=== PATIENT | male | born 1935 | race Caucasian/White ===

== ENCOUNTER 2018-11-22 12:09 | Inpatient (IN) | payer MEDICARE, OTHER ==
[~2018-11-22] VITALS: Ht 167.6 cm; Wt 78.7 kg
[2018-11-22] MEDS: SENNA W/DOCUSATE (SENOKOT S) TABLET PO SCH ×3 (09:00→21:11)
[2018-11-22 11:45] VITALS: BP 129/64
--- NOTE | 2018-11-22 11:45 | NUR ---
VICENTA LOCO admitted to room 225-1, with an admitting diagnosis of RIGHT TOTAL HIP , on 11/22/18 from [facility] via , accompanied by STAFF.VICENTA LOCO introduced to surroundings, call light, bed controls, phone, TV, temperature control, lights, meal times, smoking policy, visitor policy, side rail policy, bathrooms and showers. Patient Rights given to patient in the handbook.VICENTA LOCO verbalizes understanding that [facility] is not responsible for the loss or damage to any personal effects or valuables that are kept in the patients posession during their hospitalization. The following Patient Care Plans were discussed with the PT: Discharge Planning AND IMMOBILITY. VICENTA LOCO verbalizes understanding of Interdisciplinary Patient CARE. Patient received Patient Rights Booklet, which includes Privacy Act Statement and Data Collection Information Summary. PLEASANT AND COOPERATIVE. PERALES CATHETER IN PLACE.
[~2018-11-22 12:09] MED LIST: ACETAMINOPHEN 500 MG TAB (TYLENOL) PO PRN; CALCIUM CARBONATE 500 MG (TUMS) TAB.CHEW PO PRN; DOCUSATE SODIUM 100 MG (COLACE) CAP PO PRN; HYDR-707 PO; LACTULOSE SYRUP 10GM/15ML (ENULOSE) 30ML UDC PO PRN; LOPERAMIDE 2 MG (IMODIUM) TABLET PO PRN; MELATONIN 3 MG TABLET PO PRN; ONDANSETRON 4 MG (ZOFRAN) ORAL DISSOLVE TAB PO PRN; ONDANSETRON 4 MG/2 ML (SDV) Z0FRAN IVP PRN; diphenhydrAMINE 25 MG TAB (BENADRYL) PO PRN
--- NOTE | 2018-11-22 12:51 | Physical Therapy Evaluation ---
PT Evaluation-General Medical Diagnosis Admission Date Nov 22, 2018 at 12:09 Medical Diagnosis: OA right hip Onset Date: Nov 22, 2018 Therapy Diagnosis Therapy Diagnosis: abn gait Precautions Precautions/Isolations: Standard Precautions Weight Bear Status Right Lower Extremity: Right Weight Bearing/Tolerated Left Lower Extremity: Left Full Weight Bearing Referral Physician: Murphy Reason for Referral: Evaluation/Treatment Medical History Pertinent Medical History: Atrial Fib, Arthritis, COPD, GERD, HTN Additional Medical History Stage III renal failure Current History Elective right THR on 11/21/2018 post failed conservative treatment. Longstanding right hip pain. Reviewed History: Yes Social History Home: Single Level Current Living Status: Spouse Entry Into Home: Stairs With Railing PT Steps Into Home: 2 PT Steps Inside Home: 0 Prior/Core FIM Prior Level of Function Therapy Code Descriptions/Definitions Functional [place] Measure: 0=Not Assessed/NA 4=Minimal Assistance 1=Total Assistance 5=Supervision or Setup 2=Maximal Assistance 6=Modified [place] 3=Moderate Assistance 7=Complete [place] Therapy Quality Codes: 6 Independent with activity with or without an assistive device 5 Patient requires set up or clean up by helper. Patient completes activity by themselves 4 Supervision or touching assist (CGA). [place] provide cues , steadying assist 3 The helper provides less than half the effort to complete the activity 2 The helper provides more than half the effort to complete the activity 1 Dependent. The helper does all the effort to complete an activity 7 Patient refused to complete or attempt activity 9 The patient did not perform the activity before the current illness or injury 88 Not attempted due to Medical conditions or safety concerns Functional Abilities and Goals: Independent: Patient completed the activities by him/herself, with or without an assistive device, with no assistance from a helper. Needed Some Help: Patient needed partial assistance from another person to complete activities. Dependent: A helper completed the activities for the patient. Unknown: Not Applicable: Bed Mobility: 7 Transfers (B,C,W/C) (FIM): 7 Gait: 6 (intermittent use of a cane due to right hip pain) Stairs: 6 Indoor Mobility (Ambulation): Independent Stairs: Independent Pt active, gardens, still drives; indep with self care and all mobility. PT Evaluation-Current Subjective Pt agreeable to PT. No complaints at this time. Pain Numeric Pain Scale: 3 Location: Right Location Body Site: Hip Pain Description: Ache (sore) Pt/Family Goals His goals is to return home with spouse when able. Objective Patient Orientation: Person, Place, Time, Situation Problem Solving: Good Attachments: Marley Catheter ROM/Strength ROM Lower Extremities WFL Strenght Lower Extremities Left LE strength is grossly 4/5; right LE strength is grossly 3/5 Integumentary/Posture Integumentary intact Bowel Incontinence: No Bladder Incontinence: Marley Cath Posture Normal and symmetrical Neuromuscular (Tone, Coordination, Reflexes) intact and functional Sensory Vision: Functional Hearing: Hearing Aid/Aides Hand Dominance: Right Sensation Right Lower Extremit: Intact Sensation Left Lower Extremity: Intact Transfers Therapy Code Descriptions/Definitions Functional [place] Measure: 0=Not Assessed/NA 4=Minimal Assistance 1=Total Assistance 5=Supervision or Setup 2=Maximal Assistance 6=Modified [place] 3=Moderate Assistance 7=Complete [place] Therapy Quality Codes: 6 Independent with activity with or without an assistive device 5 Patient requires set up or clean up by helper. Patient completes activity by themselves 4 Supervision or touching assist (CGA). [place] provide cues , steadying assist 3 The helper provides less than half the effort to complete the activity 2 The helper provides more than half the effort to complete the activity 1 Dependent. The helper does all the effort to complete an activity 7 Patient refused to complete or attempt activity 9 The patient did not perform the activity before the current illness or injury 88 Not attempted due to Medical conditions or safety concerns Transfers (B, C, W/C) (FIM): 3 Roll Left to Right (QC): 3 Supine to/from Sit: 3 (assist to get both legs into bed. ) Sit to/from Stand: 4 (CGA) Sit to Lying (QC): 3 Lying to Sitting/Side of Bed(Q: 3 Sit to Stand (QC): 4 Chair/Ovk-sx-Muuor Xfer(QC): 4 Car Transfer (QC): 4 Gait Does the Patient Walk?: Yes Mode of Locomotion: Walk Anticipated Mode of Locomotion: Walk Gait (FIM): 2 Distance (FIM): 2=674-66 ft Walk 10 feet (QC): 4 Walk 50 ft with 2 Turns(QC): 4 Walk 150 ft (QC): 88 Walking 10ft/uneven surface-QC: 4 Gait Assistive Device: FWW Comments/Gait Description slightly antalgic gait but with step through pattern. Wheelchair Training Does the Pt Use a Wheelchair?: No Stairs Stairs (FIM): 1 #of Steps: 1 Level of Assist: 4 1 Step (curb) (QC): 3 4 Steps (QC): 88 Assistive Device: Walker 12 Steps (QC): 88 Min assist to step up on the step Balance Sitting Static: Good Sitting Dynamic: Good Standing Static: Fair Standing Dynamic: Fair Picking up an Object (QC): 88 (contraindicated) Treatment Treatment consisted of functional transfer training and gait training with use of FWW; focused on sit to stand transfers with safety and correct sequencing. Pt in room in recliner post treatment with needs met. Assessment/Needs Post elective right THR with a decline in functional strength and balance that impairs his abiltity to perform bed mobility, transfers and gait. He will benefit from skilled PT services to address functional tasks to allow him to return home as before. Rehab Potential: Good PT Short Term Goals Short Term Goals Time Frame: Nov 29, 2018 Transfers (B,C,W/C) (FIM): 5 Gait (FIM): 4 Distance (FIM): 3=150 ft Gait Assistive Device: FWW PT Usp Goals Usp Goals PT Usp Goals Time Frame: Dec 06, 2018 Transfers (B,C,W/C) (FIM): 7 Sit to Lying (QC): 6 Lying-Sitting on Side/Bed(QC): 6 Sit to Stand (QC): 6 Roll Left to Right (QC): 6 Chair/Jpw-oe-Asrwr Xfer(QC): 6 Car Transfer (QC): 6 Does the Patient Walk: Yes Gait (FIM): 6 Gait distance (FIM): 3=150 ft Walk 10 feet (QC): 6 Walk 10ft-Uneven Surface(QC): 6 Walk 50ft with 2 Turns (QC): 6 Walk 150 ft (QC): 6 Gait Assistive Device: FWW Does the Pt use WC or Scooter?: No Stairs (FIM): 5 # of Steps: 4 1 Step (curb) (QC): 6 4 Steps (QC): 6 12 Steps (QC): 9 Picking up an Object (QC): 88 PT Plan Problem List Problem List: Activity Tolerance, Functional Strength, Safety, Balance, Gait, Transfer, Bed Mobility Treatment/Plan Treatment Plan: Continue Plan of Care Treatment Plan: Bed Mobility, Education, Functional Activity Lizet, Functional Strength, Group Therapy, Gait, Safety, Therapeutic Exercise, Transfers Treatment Duration: Dec 06, 2018 Frequency: At least 5 of 7 days/Wk (IRF) Estimated Hrs Per Day: 1.5 hours per day Patient and/or Family Agrees t: Yes Safety Risks/Education Patient Education: Transfer Techniques, Safety Issues Teaching Recipient: Patient Teaching Methods: Demonstration, Discussion Response to Teaching: Reinforcement Needed Discharge Recommendations Therapy Discharge Recommendati: Post Acute PT Equpiment Recommendations-D/C: Front Wheeled Walker Time/GCodes Time In: 1145 Time Out: 1230 Total Billed Treatment Time: 45 Total Billed Treatment visit EVM 15 GT 15 FA 15 ROSANNE HOPKINS PT Nov 22, 2018 12:51
[2018-11-22 12:52] VITALS: BP 129/64
[2018-11-22] MEDS ORDERED: HYLAND'S LEG CRAMPS SL (13:21)
[2018-11-22] MEDS ORDERED: VIT1CAPS44 PO (13:21)
[2018-11-22] MEDS ORDERED: FURO20TA4 PO (13:21)
[2018-11-22] MEDS ORDERED: TAMS0.4C98 PO (13:21)
[2018-11-22] MEDS ORDERED: DIPH-581 PO (13:21)
[2018-11-22] MEDS ORDERED: CHOL10007 PO (13:21)
[2018-11-22] MEDS ORDERED: PRED5TAB PO (13:21)
[2018-11-22] MEDS ORDERED: CARB15DR OU (13:21)
[2018-11-22] MEDS ORDERED: OXYC-529 PO (13:21)
[2018-11-22] MEDS ORDERED: PEDI18TA2 PO (13:21)
[2018-11-22] MEDS ORDERED: TRAM50TA2 PO (13:21)
[2018-11-22] MEDS ORDERED: CARV6.252 PO (13:21)
[2018-11-22] MEDS ORDERED: VITA1CAP PO (13:21)
[2018-11-22] MEDS ORDERED: ALLO300T2 PO (13:21)
[2018-11-22] MEDS ORDERED: ZINC50TA51 PO (13:21)
[2018-11-22] MEDS ORDERED: FLUT9.9S NS (13:21)
[2018-11-22] MEDS ORDERED: FISH12002 PO (13:21)
[2018-11-22] MEDS ORDERED: OMEP40CA36 PO (13:21)
[2018-11-22] MEDS ORDERED: PANT40TA2 PO (13:21)
[2018-11-22] MEDS ORDERED: ATOR40TA70 PO (13:21)
[2018-11-22] MEDS ORDERED: FLUT1DIS28 IH (13:21)
[2018-11-22] MEDS ORDERED: IRON150C3 PO (13:21)
[2018-11-22] MEDS ORDERED: APIX2.5T PO (13:21)
[2018-11-22] MEDS ORDERED: ACET-2267 PO (13:21)
[2018-11-22] MEDS ORDERED: OXYC-471 PO (13:21)
--- NOTE | 2018-11-22 13:26 | Occupational Therapy Eval ---
OT Evaluation-General/PLF Medical Diagnosis Admission Date Nov 22, 2018 at 12:09 Medical Diagnosis: OA right hip Onset Date: Nov 22, 2018 Therapy Diagnosis Therapy Diagnosis: impaired ADLs and functional mobility Height/Weight Height (Feet): 5 Height (Inches): 6.00 Weight (Pounds): 172 Weight (Ounces): 0.2 Precautions Precautions/Isolations: Standard Precautions Weight Bear Status Weight Bearing Restriction: Weight Bearing/Tolerated Location Restriction: R LE Referral Physician: Murphy Referral Reason: Activity Tolerance, Self Care, Evaluation/Treatment, Strengthening/ROM Medical History Pertinent Medical History: Atrial Fib, Arthritis, COPD, GERD, HTN Current History Pt elected to have R ANNIKA surgery on right hip after trying other txs without success. Reviewed History: Yes Social History Home: Single Level Current Living Status: Spouse Entry Into Home: Stairs With Railing Steps Into Home: 2 Steps Inside Home: 0 ADL-Prior Level of Function Therapy Code Descriptions/Definitions Functional [place] Measure: 0=Not Assessed/NA 4=Minimal Assistance 1=Total Assistance 5=Supervision or Setup 2=Maximal Assistance 6=Modified [place] 3=Moderate Assistance 7=Complete [place] Therapy Quality Codes: 6 Independent with activity with or without an assistive device 5 Patient requires set up or clean up by helper. Patient completes activity by themselves 4 Supervision or touching assist (CGA). [place] provide cues , steadying assist 3 The helper provides less than half the effort to complete the activity 2 The helper provides more than half the effort to complete the activity 1 Dependent. The helper does all the effort to complete an activity 7 Patient refused to complete or attempt activity 9 The patient did not perform the activity before the current illness or injury 88 Not attempted due to Medical conditions or safety concerns Functional Abilities and Goals: Independent: Patient completed the activities by him/herself, with or without an assistive device, with no assistance from a helper. Needed Some Help: Patient needed partial assistance from another person to complete activities. Dependent: A helper completed the activities for the patient. Unknown: Not Applicable: ADL PLOF Comments Pt reported he was independent with bathing/dressing/grooming and ADLs prior to surgery & hospitalization. Pt stated he uses a walker or a cane at home and in the community depending on how he is feeling. Self Care: Independent Functional Cognition: Independent DME/Equipment: Bath Chair, Grab Bars, Shower DME/Equipment Comments walker and cane Drive Self: Yes OT Current Status Subjective Pt upright in recliner at start of session, agreed to OT evaluation. Pt did not report any pain during evaluation. Mental Status/Objective Patient Orientation: Person, Place, Time, Situation Attachments: Marley Catheter Current Glasses/Contacts: Yes Hearing Aids: Yes Dentures/Partials: No Hand Dominance: Right Upper Extremity ROM WFL, pt able to reach bilateral hands behind head. Upper Extremity Coordination WFL finger to nose test and thumb opposition to each finger. Pt's right thumb able to oppose to 4th digit but unable to oppose to 5th digit. Upper Extremity Sensation WNL light touch, pt denied any tingling/numbness BUE Upper Extremity Strength 4+/5 MMT ADL-Treatment Grooming (FIM): 4 (CGA. pt able to brush teeth and hair standing at sink with FWW, OT set up bathroom for grooming) Oral Hygiene (QC): 4 Transfers (B, C, W/C) (FIM): 4 (CGA sit to/from stand from chair) Other Treatments Pt provided information on PLOF and home set up. OT evaluation complete this date. Pt performed functional mobility with FWW to bathroom with CGA to complete grooming standing at sink. Pt performed functional mobility with CGA into rehab common area prior to group therapy tx. Post OT session, pt seated upright in chair, all needs met. Education OT Patient Education: Correct positioning, Energy conservation, Progress toward Goal/Update tx plan, Purpose of tx/functional activities, Transfer techniques Teaching Recipient: Patient Teaching Methods: Demonstration, Discussion Response to Teaching: Verbalize Understanding OT Short Term Goals Short Term Goals Time Frame: Dec 04, 2018 Grooming(FIM): 5 Bathing(FIM): 4 Bathing Location: L Arm, R Arm, L Upper Leg, R Upper Leg, Chest, Abdomen, Buttocks, Perineal Area Upper Body Dressing(FIM): 5 Lower Body Dressing(FIM): 5 Toileting(FIM): 5 Transfers (B,C,W/C) (FIM): 5 Toilet/Commode Transfer(FIM): 5 Shower Transfer(FIM): 4 1=Demonstrate adherence to instructed precautions during ADL tasks. 2=Patient will verbalize/demonstrate understanding of assistive devices/modifications for ADL. 3=Patient will improve strength/tolerance for activity to enable patient to perform ADL's. OT Half-Way Goals Sample Maker Original Goals Time Frame: Dec 13, 2018 Eating (FIM): 7 Eating (QC): 6 Groomin Oral Hygiene (QC): 6 Bathing(FIM): 5 Bathing Location: L Arm, R Arm, L Upper Leg, R Upper Leg, L Lower Leg (including foot), R Lower Leg (including foot), Chest, Abdomen, Buttocks, Perineal Area Shower/Bathe Self (QC): 5 Upper Body Dressing(FIM): 6 Upper Body Dressing (QC): 6 Lower Body Dressing(FIM): 6 Lower Body Dressing (QC): 6 On/Off Footwear (QC): 6 Toileting(FIM): 6 Toileting Hygiene (QC): 6 Transfers (B,C,W/C) (FIM): 6 Toilet/Commode Transfer(FIM): 6 Toilet/Commode Transfer (QC): 6 Shower Transfer(FIM): 5 Additional Goals: 1-Demonstrate ADL Tasks, 2-Verbalize Understanding, 3- ImproveStrength/[place] 1=Demonstrate adherence to instructed precautions during ADL tasks. 2=Patient will verbalize/demonstrate understanding of assistive de vices/modifications for ADL. 3=Patient will improve strength/tolerance for activity to enable patient to perform ADL's. OT Education/Plan Problem List/Assessment Assessment: Decreased Activ Tolerance, Decreased UE Strength, Impaired Funct Balance, Impaired I ADL's, Impaired Self-Care Skills Pt would benefit from skilled OT services in order to increase independence in ADLs and functional mobility in order for pt to safely return home. Discharge Recommendations Plan/Recommendations: Continue POC Treatment Plan/Plan of Care Treatment,Training & Education: Yes Patient would benefit from OT for education, treatment and training to promote independence in ADL's, mobility, safety and/or upper extremity function for ADL's. Plan of Care: ADL Retraining, Caregiver Training, Functional Mobility, Group Exercise/Act as Ind, UE Funct Exercise/Act Treatment Duration: Dec 13, 2018 Frequency: At least 5 of 7 days/Wk (IRF) Estimated Hrs Per Day: 1.5 hours per day Agreement: Yes Rehab Potential: Good Time/GCodes Start Time: 12:45 Stop Time: 13:00 Total Time Billed (hr/min): 15 Billed Treatment Time 1, CHRISTINA [id number] JERMAN MTZ OT Nov 22, 2018 13:25
--- NOTE | 2018-11-22 13:29 | NUR ---
UPDATED MED REC TO THE LIST OF MEDICATIONS ORDERED AT DISCHARGE FROM [facility]. NOTE THE FOLLOWING CHANGES WERE MADE AT THAT DISCHARGE: START TAKING: PROTONIX 40MG DAILY TRAMADOL 50MG 1-2 Q6H PRN OXYCODONE 5-325MG 1-2 TAB Q4H PRN FERREX 150MG BID Addendum: 11/25/18 at 0832 by LISA GEE drying can worker REMOVED THE 4 NEW MEDICATIONS ORDERED AT DISCHARGE FROM [facility]. I COMPARED THE ORDERS THAT WERE CONTINUED WITH THE EXT MED HX. IN ADDITION TO WHAT IS ADDRESSED ON DISCHARGE FROM [facility] THE PATIENT FILLED VOLTAREN GEL 11-12-18 AND METHOTREXATE 2.5MG #39 FOR 90 DAYS 09-16-18. I ADDED THESE TO THE MED REC TO BE ADDRESSED AT DISCHARGE FROM REHAB. OTC MEDS WERE REPORTED FOLLOWS: FLONASE HS PRN FISH OIL DAILY BENADRYL 25MG HS PRN VITAMIN D 1000 UNITS DAILY REFRESH TEARS BID TYLENOL 2 HS HYLANDS LEG CRAMPS HS PRN ZINC 50MG DAILY B COMPLEX DAILY PRESERVISION DAILY FLINTSTONES WITH IRON DAILY
[2018-11-22] MEDS ORDERED: [UNRECOGNIZED DRUG - REMARK] PO PRN (14:30)
[2018-11-22] MEDS ORDERED: NON-FORMULARY MEDICATION 1 EA EA (Fluticasone Propionate (Flonase Allergy Relief) 1 SPRAY) NS PRN (14:30)
[2018-11-22] MEDS ORDERED: [UNRECOGNIZED DRUG - OTHER] SL PRN (14:30)
--- NOTE | 2018-11-22 14:47 | Therapy Group Daily Note ---
Therapy Daily Group Note Patient Education Topic Exercises, Other List Below (benefits of exercise and ARU practices and protocols) Exercises LE Seated Exercise, Sit to/from Stand, UE Exercise Session Ratio (pt:therapist): 4:1 Goal of Session: Education on ARU Expectations, UE/LE Strengthing, Other (list) ("exercise anytime") Goal Met for this Session: Yes Pt Benefit of Group: Increased Functional Strength, Socialization, Other (sit to stand safety and technique) Other/Notes Pt. participated in group PT session. Pt. was active participant, walked to and from with SBA. Pt. shared name, hometown and some of his favorite activities. Pts. were educated in ARU practices, requirements, scheduling etc. Education regarding benefits of exercise and activity as well as exercise they can do any time, ie in bed or seated etc. Pts read and demonstrated exercises from illustrations and instructions on cards and lead others in group exercise for U&L extremities. Scooting forward and sit to stand TRFs were focus of TRF education with each participant progressing through to stance with good techni que. Pt. to room after with gabino GUTIÉRREZ at hand all needs met Start Time: 13:00 Stop Time: 14:15 Total Billed Treatment Time: 75 Total Billed Treatment 1,GRP MISSY GREGORY DIRECTOR OF HEALTH EDUCATION Nov 22, 2018 14:47
--- NOTE | 2018-11-22 15:15 | Occupational Ther Daily Note ---
OT Current Status-Daily Note Subjective Pt in room following group session. Pt agreed to OT session focusing on ADLs. Pain Numeric Pain Scale: 8 Mental Status/Objective Patient Orientation: Person, Place, Time, Situation Therapy Code Descriptions/Definitions Functional [place] Measure: 0=Not Assessed/NA 4=Minimal Assistance 1=Total Assistance 5=Supervision or Setup 2=Maximal Assistance 6=Modified [place] 3=Moderate Assistance 7=Complete [place] Attachments: Marley Catheter ADL-Treatment Therapy Code Descriptions/Definitions Functional [place] Measure: 0=Not Assessed/NA 4=Minimal Assistance 1=Total Assistance 5=Supervision or Setup 2=Maximal Assistance 6=Modified [place] 3=Moderate Assistance 7=Complete [place] Therapy Quality Codes: 6 Independent with activity with or without an assistive device 5 Patient requires set up or clean up by helper. Patient completes activity by themselves 4 Supervision or touching assist (CGA). [place] provide cues , steadying assist 3 The helper provides less than half the effort to complete the activity 2 The helper provides more than half the effort to complete the activity 1 Dependent. The helper does all the effort to complete an activity 7 Patient refused to complete or attempt activity 9 The patient did not perform the activity before the current illness or injury 88 Not attempted due to Medical conditions or safety concerns Eating (FIM): 7 (Pt able to open all containers and bring food to mouth.) Eating (QC): 6 Bathing (FIM): 4 (Pt completed 10/26 parts on SC, requiring assistance with BLE lower legs/feet. Pt stood for washing buttocks and periarea at with CGA.) Bathing Location: L Arm, R Arm, L Upper Leg, R Upper Leg, Chest, Abdomen, Buttocks, Perineal Area Shower/Bathe Self (QC): 3 Upper Body (FIM): 5 (set up, pt donned button up shirt ) Upper Body Dressing (QC): 5 Lower Body Dressing (FIM): 2 (Pt completed 04/26, pt able to manage pants/underwear up over hips but required assistance threading LEs into pant legs. OT donned thigh high ANDREA hose for pt) Lower Body Dressing (QC): 2 On/Off Footwear (QC): 1 Toileting (FIM): 4 (CGA during standing for clothing management. Pt completed 3/3) Toileting Hygiene (QC): 4 Transfers (B, C, W/C) (FIM): 4 (CGA sit to/from stand from recliner) Toilet/Commode Transfer (FIM): 4 (CGA sit to/from toilet) Toilet Transfer (QC): 4 Shower Transfer(FIM): 4 (CGA in/out of shower) Other Treatment Pt completed ADL session in room. Performed functional mobility to shower using FWW with CGA, completed showering, dressing, toileting and then returned to recliner using FWW. Pt's lunch arrived and pt ate. Post OT session, pt seated in room eating lunch, call light in reach and all needs met. Education OT Patient Education: Correct positioning, Energy conservation, Progress toward Goal/Update tx plan, Purpose of tx/functional activities, Transfer techniques Teaching Recipient: Patient Teaching Methods: Demonstration, Discussion Response to Teaching: Verbalize Understanding OT Short Term Goals Short Term Goals Time Frame: Dec 04, 2018 Grooming(FIM): 5 Bathing(FIM): 4 Bathing Location: L Arm, R Arm, L Upper Leg, R Upper Leg, Chest, Abdomen, Buttocks, Perineal Area Upper Body Dressing(FIM): 5 Lower Body Dressing(FIM): 5 Toileting(FIM): 5 Transfers (B,C,W/C) (FIM): 5 Toilet/Commode Transfer(FIM): 5 Shower Transfer(FIM): 4 1=Demonstrate adherence to instructed precautions during ADL tasks. 2=Patient will verbalize/demonstrate understanding of assistive devices/modifications for ADL. 3=Patient will improve strength/tolerance for activity to enable patient to perform ADL's. OT Custodial Goals Criminal Intelligence Analyst Goals Time Frame: Dec 13, 2018 Eating (FIM): 7 Eating (QC): 6 Groomin Oral Hygiene (QC): 6 Bathing(FIM): 5 Bathing Location: L Arm, R Arm, L Upper Leg, R Upper Leg, L Lower Leg (including foot), R Lower Leg (including foot), Chest, Abdomen, Buttocks, Perineal Area Shower/Bathe Self (QC): 5 Upper Body Dressing(FIM): 6 Upper Body Dressing (QC): 6 Lower Body Dressing(FIM): 6 Lower Body Dressing (QC): 6 On/Off Footwear (QC): 6 Toileting(FIM): 6 Toileting Hygiene (QC): 6 Transfers (B,C,W/C) (FIM): 6 Toilet/Commode Transfer(FIM): 6 Toilet/Commode Transfer (QC): 6 Shower Transfer(FIM): 5 Additional Goals: 1-Demonstrate ADL Tasks, 2-Verbalize Understanding, 3-ImproveStrength/[place] 1=Demonstrate adherence to instructed precautions during ADL tasks. 2=Patient will verbalize/demonstrate understanding of assistive devices/modifications for ADL. 3=Patient will improve strength/tolerance for activity to enable patient to perform ADL's. OT Education/Plan Problem List/Assessment Assessment: Decreased Activ Tolerance, Decreased UE Strength, Impaired Funct Balance, Impaired I ADL's, Impaired Self-Care Skills Pt would benefit from skilled OT services in order to increase independence in ADLs and functional mobility in order for pt to safely return home. Discharge Recommendations Plan/Recommendations: Continue POC Treatment Plan/Plan of Care Treatment,Training & Education: Yes Patient would benefit from OT for education, treatment and training to promote independence in ADL's, mobility, safety and/or upper extremity function for ADL's. Plan of Care: ADL Retraining, Caregiver Training, Functional Mobility, Group Exercise/Act as Ind, UE Funct Exercise/Act Treatment Duration: Dec 13, 2018 Frequency: At least 5 of 7 days/Wk (IRF) Estimated Hrs Per Day: 1.5 hours per day Agreement: Yes Rehab Potential: Good Time/GCodes Start Time: 14:15 Stop Time: 15:00 Total Time Billed (hr/min): 45 Billed Treatment Time 1, ADL 3 [id number] JERMAN MTZ OT Nov 22, 2018 15:15
--- NOTE | 2018-11-22 15:17 | ST Cognitive Linguistic Eval ---
Speech Evaluation-General Medical Diagnosis OA right hip Onset Date: Nov 22, 2018 Therapy Diagnosis Therapy Diagnosis: Cognitive-communication Precautions Precautions: Fall Precautions/Isolations: Standard Precautions Referral Referring Physician: Dr. Arrington Reason for Referral: Evaluation/Treatment Medical History Pertinent Medical History: Atrial Fib, Arthritis, COPD, GERD, HTN A-Fib, Arthritis, COPD, GERD, HTN Current History OA right hip Reviewed History: Yes Social History Home: Single Level Current Living Status: Spouse Speech PLF-Current Status Prior Level of Function The patient lives with his in their own home. He was independent for most of his daily needs. Subjective The patient was pleasant and cooperative with the cognitive assessment. Language Eval: Auditory Comprehends Simple Yes/No Ques: Functional Indent/Objects Multiple Sommers: Functional Ident/Pics in Multiple Sommers: Functional Follows 1-Step Commands: Functional Follows Complex Directions: Mild Follows General Conversations: Functional Language Eval: Verbal Language Completes Spontaneous Greeting: Functional Imitates Simple Words/Phrases: Functional Word Finding: Functional Requests Basic Needs: Functional States Basic Personal Info: Functional Expresses Complex Ideas: Mild Objective Cognitive Domain Attention: WNL Memory: Moderate Problem Solving: Mild Executive Functions: Mild Visuospatial Skills: WNL Composite Severity Rating: Mild Clock Drawing Severity Rating: Mild Objective Formal/Standardized Tests [facility] Status ([facility]) Results 20/30, within the dementia range of function Oral Motor/Speech Production Within Functional Limits Impression The patient is a pleasant 83 year old gentleman who was admitted to the ARU s/p knee surgery. The patient was given the SLUMS this afternoon with results of 20/30. The patient's score falls in the dementia range of function. The patient will receive skilled cognitive therapy with focus on memory, problem solving and safety awareness. Communication/Social Cognition Comprehension: 6 Expression: 6 Social Interaction: 7 Problem Solvin Memory: 4 Speech Patient Assess Expression of Ideas/Wants: Exhibits (3) Understanding Verbal Content: Usually Understands (3) Brief Interview-Mental Status: Yes Repetition of Three Words: Three (3) Temporal Orientation: Year: Correct (3) Temporal Orientation: Month: Accurate within 5 days(2) Temporal Orientation: Day: Correct (1) Recall : Wear to say "Sock": Yes,after cueing (1) Recall : Color: No, could not recall (0) Recall : Bed: No, could not recall (0) Memory/Recall Ability: Current season, That he or she is in a hsp/hsp unit Speech Short Term Goals Short Term Goals Short Term Goals 1) The patient will complete memory tasks with 90% or greater accuracy given minimal cues. 2) The patient will complete problem solving tasks with 90% or greater accuracy given minimal cues. 3) The patient will complete safety awareness tasks with 90% or greater accuracy given minimal cues. Speech Long-Term Goals Breaker Operator Goals The patient will improve his cognitive level of function so that he may return home safely. Speech-Plan Patient/Family Goals Patient/Family Goals: The patient plans on returning to his home where he lives with his post rehab. Treatment Plan Speech Therapy Treatment Plan: Continue Plan of Care The patient will receive skilled cognitive therapy. Treatment Duration: Nov 29, 2018 Frequency: 5 times per week Estimated Hrs Per Day: .5 hour per day Rehab Potential: Good Barriers to Learning: Patient eval results are in the dementia range of function Pt/Family Agrees to Plan: Yes Safety Risks/Education Teaching Recipient: Patient Teaching Methods: Demonstration, Discussion Response to Teaching: Verbalize Understanding, Return Demonstration Education Topics Provided: Safety within his room and communication of his wants/needs Time Speech Therapy Time In: 15:10 Speech Therapy Time Out: 15:25 Total Billed Time: 15 Billed Treatment Time 1, SPSNDTATA Mcnair Nov 22, 2018 15:17
[2018-11-22] MEDS ORDERED: diphenhydrAMINE 25 MG TAB (BENADRYL) PO PRN (15:30)
[2018-11-22] MEDS ORDERED: FLUTICASONE NASAL SPRAY (FLONASE) 16 GM BTL NS PRN (15:45)
[2018-11-22] MEDS ORDERED: BETHANECHOL 25 MG (URECHOLINE) TAB PO SCH (16:00)
--- NOTE | 2018-11-22 16:00 | NUR ---
DR. MCDANIEL INFORMED THAT PATIENT HAS A HISTORY OF COPD AND URECHOLINE DOSE DECREASED. PATIENT WILL CONTINUE WITH PERALES CATHETER TO DEPENDENT DRAINAGE FOR NOW AND IS ON FLOMAX AND URECHOLINE. FAMILY VISITED. IS [place] AND WEARS BILATERAL HEARING AIDES AND IS FORGETFUL.
--- NOTE | 2018-11-22 16:26 | NUR ---
LARRY CAR OPERATOR met with patient to complete initial assessment. Patient was alert and oriented and agreeable to assessment. Patient admitted to ARU from [facility] following an elective right total hip replacement due to OA by Dr. Nickerson. Prior to hospitalization patient resided with spouse, Darlin in a one level home in [place], [place]. The home has 3 steps at the entrance with railing. Prior to surgery patient utilized a Rollator walker with ambulation inside the home and a single-point cane when outdoors due to pain. Patient also possesses a front-wheeled walker and a walk in shower with shower seat. primary contact identified as spouse, Darlin at [phone] and secondary contact as daughter Karen at [phone]. PCP identified as Dr. [facility]. Insurance verified as Medicare and [employer] with [employer] prescription coverage and preferred pharmacy listed as [facility]. LARRY CAR OPERATOR reviewed typical a RU length of stay and weekly team conferences. Patient expresses no questions or concerns at this time. LARRY CAR OPERATOR will continue to follow.
[2018-11-22] MEDS: FUROSEMIDE 20 MG (LASIX) TAB PO SCH (16:41)
[2018-11-22] MEDS: BETHANECHOL 10 MG (URECHOLINE) TAB PO SCH ×2 (16:41→21:11)
[2018-11-22] MEDS: IRON POLYSAC 150 MG CAP (NIFEREX) PO SCH (16:41)
--- NOTE | 2018-11-22 17:50 | PM&R H&P / Post Admit Assess ---
History of Present Illness HPI/Chief Complaint CC: Debility following right hip replacement uncomplicated by Dr Nickerson POD # 3 HPI: This is an 83yoWM clinic pt of Dr. Ramirez in [place] who presented to the inpatient rehab following an uncomplicated right total hip replacement after her failed conservative treatment. He has a history of AF and sees Dr. Vera cardiology for that but has had significant weakness prior to sx and subsequent to surgery so he was found to meet criteria for inpatient rehab and has some significant problems with urinary retention maintained on Marley catheter since unable to urinate the night of surgery. At this current time pt remains stable, hgb slightly low at 8.8 his AF has done well after an atrial fibrillation episode in the OR but remains in normal sinus rhythm now. He has had 3 bowel movements this morning before leaving [facility] in [place]. He will return home at [place]. His prior level of functioning was use of assistive devices and fairly independent with ADLs. He has been for 49 years. Source: patient, family, old records Exam Limitations: no limitations Date Seen 11/22/18 Time Seen by a Provider: 17:30 Attending Physician Nohelia Aden DO PCP No,Local Physician Referring Physician Date of Admission Nov 22, 2018 at 12:09 Home Medications & Allergies Home Medications Reviewed patient Home Medication Reconciliation performed by pharmacy medication reconciliations career resource technician and/or nursing. Patients Allergies have been reviewed. 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) Alcohol Use: Denies Use Recreational Drug Use: No Smoking Status: Former Smoker Former Smoker, Quit: Nov 22, 1972 Physical Abuse Screen: No Sexual Abuse: No Recent Foreign Travel: No Contact w/other who traveled: No Recent Hopitalizations: Yes Recent Infectious Disease Expo: No Immunizations Up To Date Date of Pneumonia Vaccine: Nov 17, 2010 Seasonal Allergies Seasonal Allergies: Yes Past Medical History Surgeries: Orthopedic Currently Using CPAP: Yes Currently Using BIPAP: No Cardiac: Atrial Fibrillation, Coronary Artery Disease, Heart Murmur, High Cholesterol, Hypertension, Valvular Heart Disease Genitourinary: Benign Prostatic Hyperpl, Renal Failure Gastrointestinal: Gastroesophageal Reflux Musculoskeletal: Arthritis, Gout Hearing Impairment: Bilateral Hearing Aide Cancer: Prostate, Lymphoma What Type of Treatment Did You: Radiation History of Blood Disorders: Yes Adverse Reaction to Blood Mack: Yes (THINKS HE HAS HAD A RXN, BUT UNSURE WHAT) Family History Cardiovascular disease 19 MOTHER Diabetes mellitus 19 MOTHER FH: prostate cancer G8 BROTHER Myocardial infarction 19 FATHER Review of Systems Constitutional: see HPI, malaise, weakness EENTM: no symptoms reported Respiratory: no symptoms reported Cardiovascular: no symptoms reported Gastrointestinal: no symptoms reported Genitourinary: other (retention) Musculoskeletal: no symptoms reported Skin: no symptoms reported Psychiatric/Neurological: No Symptoms Reported All Other Systems Reviewed Negative Unless Noted: Yes Physical Exam Exam Vital Signs Vital Signs Date Time Temp Pulse Resp B/P (MAP) Pulse Ox O2 Delivery O2 Flow Rate FiO2 11/23/18 05:30 97.6 67 16 106/62 (77) 95 Room Air Capillary Refill : General Appearance: No Apparent Distress, WD/WN, Chronically ill HEENT: PERRL/EOMI, Normal ENT Inspection, Pharynx Normal, Moist Mucous Membranes Neck: Full Range of Motion, Normal Inspection, Non Tender, Supple Respiratory: Chest Non Tender, Lungs Clear, Normal Breath Sounds, No Accessory Muscle Use, No Respiratory Distress Cardiovascular: Regular Rate, Rhythm, No Edema, No Gallop, No JVD, Systolic Murmur Gastrointestinal: Normal Bowel Sounds, No Organomegaly, No Pulsatile Mass, Non Tender, Soft Back: Normal Inspection, No CVA Tenderness, No Vertebral Tenderness Extremity: Normal Capillary Refill, Normal Inspection, Normal Range of Motion (except right leg), Non Tender, No Calf Tenderness, No Pedal Edema Neurologic/Psychiatric: Alert, Oriented x3, No Motor/Sensory Deficits, Normal Mood/Affect Skin: Normal Color, Warm/Dry Lymphatic: No Adenopathy Results Results/Procedures Labs Laboratory Tests 11/23/18 06:40 Patient resulted labs reviewed. Assessment/Plan Assessment and Plan Assess & Plan/Chief Complaint Assessment: Right hip replacement POD # 3 Urinary retention CRI HTN AF Murmur Post op anemia GERD Gout Plan: Dr Arroyo and Dr Griffiths appreciated Monitor hgb and creat Eliquis IRF protocol (1) Status post right hip replacement Status: Acute (2) Gout Status: Chronic Qualifiers: Gout site: unspecified site Gout etiology: unspecified cause Chronicity: unspecified Qualified Codes: M10.9 - Gout, unspecified (3) CAD (coronary artery disease) Status: Chronic Qualifiers: Coronary Disease-Associated Artery/Lesion type: [place] artery [place] vs. transplanted heart: [place] heart Associated angina: without angina Qualified Codes: I25.10 - Atherosclerotic heart disease of [place] coronary artery without angina pectoris (4) Murmur Status: Chronic (5) Valvular heart disease Status: Chronic (6) Atrial fibrillation Status: Chronic Qualifiers: Atrial fibrillation type: paroxysmal Qualified Codes: I48.0 - Paroxysmal atrial fibrillation (7) Hypertension Status: Chronic Qualifiers: Hypertension type: essential hypertension Qualified Codes: I10 - Essential (primary) hypertension (8) Hyperlipemia Status: Chronic Qualifiers: Hyperlipidemia type: mixed hyperlipidemia Qualified Codes: E78.2 - Mixed hyperlipidemia (9) Postoperative anemia Status: Acute (10) Urinary retention Status: Acute (11) Marley catheter in place Status: Acute (12) GERD (gastroesophageal reflux disease) Status: Chronic Qualifiers: Esophagitis presence: without esophagitis Qualified Codes: K21.9 - Gastro- esophageal reflux disease without esophagitis (13) Osteoarthritis Status: Chronic Qualifiers: Osteoarthritis location: unspecified site Osteoarthritis type: unspecified Qualified Codes: M19.90 - Unspecified osteoarthritis, unspecified site (14) Advanced age Status: Chronic Post Admission Physician Asses Date seen by provider: Nov 22, 2018 Time seen by provider: 17:30 Admisison Dx: (1) Status post right hip replacement Status: Acute The preadmission screen agrees with the post admission assessment that the patient is a good candidate for inpatient rehabilitation. The patient will have a comprehensive program of inpatient rehabilitation with a goal of maximizing level of functional independence prior to discharge home with family. The patient will have PT/OT ninety minutes per day, each discipline, five days a week for gait, strengthening, conditioning, balance, ADLs, any patient/family/caregiver training as necessary. Speech therapy to do cognitive assessment and treat as indicated. Rehabilitation nursing to assist with bowel, bladder, skin, wound care, medication administration, pain management. Database Programmer to assist with discharge planning, community reentry. SCD's for DVT prophylaxis. He appears to be well motivated to participate in three hours of therapy a day. He should be able to tolerate three hours of therapy a day from a medical standpoint. He should benefit from the three hours of therapy a day. He has a reasonable discharge plan, reasonable discharge rehabilitation goals and a supportive family. He has various comorbidities that need to be closely denisha tored with medications and treatments adjusted on a daily basis as needed. These include: see list Barriers to discharge for this patient who had been independent prior to this are for him to be modified independent to supervision for ADLs and mobility skills prior to discharge home with family, so as to lessen the burden of the caregivers. Risks for this patient include: 1. Fall 2. Fracture 3. DVT 4. Pulmonary embolism 5. Wound infection 6. Skin breakdown 7. Contractures 8. Poorly controlled pain 9. Urinary retention 10. UTI 11. Respiratory infection 12. Aspiration Estimated Length of Stay: 7 days Prognosis: Rehab prognosis appears good for goal of discharge home with family modified independent to supervision for ADLs and mobility skills. NOHELIA ADEN DO Nov 22, 2018 17:50
[2018-11-22 18:35] VITALS: BP 115/55
--- NOTE | 2018-11-22 20:54 | Progress Note - Hospitalist ---
[facility] 11/22/182053: Progress Note Mr. Edmondson is a 83 year old male who is presenting to ARU after a Right ANNIKA. Prior to hospitalization, he was able to complete all of his ADL's independently. He was able to stand and be relatively active for the past two years while receiving steroid shots into his hip. He and his live in a onle level house. It is 3 trailer put together, where one of them solely a kitchen. He states that he is able to navigate his house with relatively easy. He does state that he has rails leading into his home and that his [id number] is suppose to build a ramp for their house for his who has RA. They do have a shower seat and are planning to put a rail in the bathroom. He states that his one his daughters' and her live about 200 yards away and that they aren't reluctant to call if help is needed. They have no home aids. They have no pets. He is a former smoker who had a 20 pack year history. He denies smoking and drinking as of now. 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 He likes to fish and garden. He says he is able to grow tomatoes, cucumbers, sweet potatoes, cantaloupes, and watermelon. NOHELIA ADEN DO 11/23/18 0744: Supervisory-Addendum Brief Verification & Attestation Participated in pt care: history, MDM, physical Personally performed: exam, history, MDM, supervision of care Care discussed with: Medical Student Procedures: n/a Results interpretation: Verified all documentation Verification and Attestation of Medical Student E/M Service A medical student performed and documented this service in my presence. I reviewed and verified all information documented by the medical student and made modifications to such information, when appropriate. I personally performed the physical exam and medical decision making. Nohelia Aden Nov 23, 2018,07:44 [facility] Nov 22, 2018 20:54 NOHELIA ADEN DO Nov 23, 2018 07:44
[2018-11-22] MEDS ORDERED: NON-FORMULARY MEDICATION 1 EA EA (Fluticasone/Salmeterol (Advair 100-50 Diskus) 1 PUFF) IH SCH (21:00)
[2018-11-22] MEDS ORDERED: FUROSEMIDE 20 MG (LASIX) TAB PO SCH (21:00)
[2018-11-22] MEDS ORDERED: IRON POLYSACCHARIDE COMPLEX 150 MG PO SCH (21:00)
[2018-11-22] MEDS ORDERED: NON-FORMULARY MEDICATION 1 EA EA (Acetaminophen (Tylenol Extra Strength) 1,000 MG) PO SCH (21:00)
[2018-11-22] MEDS ORDERED: NON-FORMULARY MEDICATION 1 EA EA (Carboxymethylcellulose Sodium (Refresh Tears) 1 DROP) OU SCH (21:00)
[2018-11-22] MEDS: ARTIFICAL TEARS 0.4 ML UNIT DOSE (REFRESH PLUS) OU SCH (21:10)
[2018-11-22] MEDS: ACETAMINOPHEN 500 MG TAB (TYLENOL) PO SCH (21:10)
[2018-11-22] MEDS: CARVEDILOL 6.25 MG (COREG) TAB PO SCH (21:11)
[2018-11-22] MEDS: TAMSULOSIN 0.4 MG (FLOMAX) CAP PO SCH (21:11)
[2018-11-22] MEDS: APIXABAN 2.5 MG (ELIQUIS) TABLET PO SCH (21:11)
[2018-11-23 05:30] VITALS: BP 106/62
[2018-11-23] MEDS: BETHANECHOL 10 MG (URECHOLINE) TAB PO SCH ×4 (06:33→20:41)
[2018-11-23] MEDS: IRON POLYSAC 150 MG CAP (NIFEREX) PO SCH ×2 (06:33→17:15)
[2018-11-23] MEDS: MULTIVIT W/MINERALS TAB (THERAGRAN M) PO SCH (06:33)
[2018-11-23] MEDS: PANTOPRAZOLE 40 MG (PROTONIX) TAB PO SCH (06:33)
[2018-11-23 06:51] LABS: BASOPHILS % (AUTO) 0 % (0-10); EOSINOPHILS # (AUTO) 0.1 10^3/uL (0.0-0.3); EOSINOPHILS % (AUTO) 1 % (0-10); HEMATOCRIT 27 % (40-54); HEMOGLOBIN 8.7 G/DL (13.3-17.7); LYMPHOCYTES # (AUTO) 2.8 X 10^3 (1.0-4.0); LYMPHOCYTES % (AUTO) 24 % (12-44); MEAN CORPUSCULAR HEMOGLOBIN 33 PG (25-34); MEAN CORPUSCULAR HGB CONC 32 G/DL (32-36); MEAN CORPUSCULAR VOLUME 103 FL (80-99); MEAN PLATELET VOLUME 9.8 FL (7.4-10.4); MONOCYTES # (AUTO) 1.5 X 10^3 (0.0-1.0); MONOCYTES % (AUTO) 13 % (0-12); NEUTROPHILS # (AUTO) 7.2 X 10^3 (1.8-7.8); NEUTROPHILS % (AUTO) 62 % (42-75); PLATELET COUNT 197 10^3/uL (130-400); WHITE BLOOD COUNT 11.6 10^3/uL (4.3-11.0)
[2018-11-23 07:16] LABS: ALBUMIN 3.2 GM/DL (3.2-4.5); BILIRUBIN,TOTAL 0.4 MG/DL (0.1-1.0); CALCIUM 8.8 MG/DL (8.5-10.1); CREATININE SERUM 1.46 MG/DL (0.60-1.30); POTASSIUM 3.8 MMOL/L (3.6-5.0)
--- NOTE | 2018-11-23 08:11 | Individualized Plan of Care ---
Individualized Plan of Care Rehab Nursing IPOC Order Admission Date Nov 22, 2018 at 12:09 Current Orders Orders Admission Order(Inpt,Obs,Sdc) (11/21/18 18:42) Vital Signs: Per Unit Policy ( 08,16,00 (11/21/18 18:42) Beater Operator-Inpt Rehab Con (11/21/18 18:42) Rehab Nursing Orders-Ipoc (11/21/18 18:42) Physical Therapy Rehab Orders (11/21/18 18:42) Occupational Therapy Rehab Ord (11/21/18 18:42) Speech Therapy Rehab Orders (11/21/18 18:42) Intake & Output 06,14,22 (11/21/18 18:42) Precautions (Aru) (11/21/18 18:42) Weekly Weight (Lbs) WEEK (11/21/18 18:42) Rehab-Intensity Of Therapy (11/21/18 18:42) Initiate Admission Nursing Pro .admission (11/21/18 18:42) Heart Healthy (11/22/18 Breakfast) Acetaminophen Tablet (Tylenol Tablet) (11/21/18 18:45) Calcium Carbonate Chew Tablet (Antacid C (11/21/18 18:45) Diphenhydramine Tablet (Benadryl Tablet) (11/21/18 18:45) Docusate Sodium Capsule (Colace Capsule) (11/21/18 18:45) Lactulose Oral Solution (Enulose Oral So (11/21/18 18:45) Loperamide Tablet (Imodium Tablet) (11/21/18 18:45) Melatonin Tablet (Melatonin Tablet) (11/21/18 18:45) Senna S Tablet (Senokot S Tablet) (11/21/18 21:00) Ondansetron Injection (Zofran Injectio (11/21/18 18:45) Ondansetron Oral Dissolve Tab (Zofran (11/21/18 18:45) Initiate Admission Nursing Pro .admission (11/21/18 18:42) Nursing Communication (Order) (11/22/18 13:56) Follow-Up Appointment D/C (11/22/18 13:56) Heart Healthy (11/22/18 Lunch) Apixaban Tablet (Eliquis Tablet) (11/22/18 21:00) Atorvastatin Tablet (Lipitor) (11/22/18 21:00) Carvedilol Tablet (Coreg Tablet) (11/22/18 21:00) Furosemide Tablet (Lasix Tablet) (11/22/18 21:00) Oxycodone Immediate Rel Tablet (Oxyir Ta (11/22/18 14:30) Oxycodone/Apap 5/325mg Tablet (Percocet (11/22/18 14:30) Pantoprazole Tablet (Protonix Tablet) (11/23/18 07:00) Tamsulosin Capsule (Flomax Capsule) (11/22/18 21:00) Tramadol Tablet (Ultram Tablet) (11/22/18 14:30) (Nf) Acetaminophen (Tylenol Extra Streng (11/22/18 21:00) (Nf) Allopurinol (11/23/18 09:00) (Nf) Carboxymethylcellulose Sodium (Refr (11/22/18 21:00) (Nf) Cholecalciferol (Vitamin D3) (Vitam (11/23/18 09:00) (Nf) Diphenhydramine Hcl (Allergy Relief (11/22/18 14:30) (Nf) Fish Oil/Borage/Flax/Om3,6,9#1 (Ome (11/23/18 09:00) (Nf) Fluticasone Propionate (Flonase All (11/22/18 14:30) (Nf) Fluticasone/Salmeterol (Advair 100- (11/22/18 21:00) (Nf) Iron Polysaccharide Complex (Ferrex (11/22/18 21:00) (Nf) Omeprazole (11/23/18 09:00) (Nf) Pedi Mv No.79/Ferrous Fumarate (Fli (11/23/18 09:00) (Nf) Vit C/E/Zn/Coppr/Lutein/Zeaxan (Pre (11/23/18 09:00) (Nf) Vitamin B Complex (11/23/18 09:00) (Nf) Zinc Amino Acid Chelate (Zinc) (11/23/18 09:00) (Nf) [Jessy's Leg Cramps] (11/22/18 14:30) Consult Cardiology (11/22/18 14:29) Catheter(Urinary) Insert & Ass 03,15 (11/22/18 14:31) Consult Urology (11/22/18 14:41) Patient Visit (11/22/18 ) Pt Eval Moderate Complexity (11/22/18 ) Functional Activities, Ea 15 (11/22/18 ) Gait Training, Ea 15 Min (11/22/18 ) Patient Visit (11/22/18 ) Therapeutic, Group (11/22/18 ) Acetaminophen Tablet (Tylenol Tablet) (11/22/18 21:00) Fluticasone/Salmeterol Common (Advair 45 (11/22/18 20:00) Cholecalciferol Capsule/Tablet (Vitamin (11/23/18 09:00) [place] 3 Capsule (Fish Oil Capsule) (11/23/18 09:00) Allopurinol Tablet (Zyloprim Tablet) (11/23/18 09:00) Patient Visit (11/22/18 ) Speech Sound Lang Comp (11/22/18 ) Diphenhydramine Tablet (Benadryl Tablet) (11/22/18 15:30) Therapeutic Multivitamin Tab (Vitamins, (11/23/18 07:00) Zinc Sulfate Capsule (Zinc 50 Mg Capsule (11/23/18 09:00) Iron Polysaccaride Capsule (Niferex Caps (11/22/18 17:00) Fluticasone Nasal [place] (Flonase Nasal S (11/22/18 15:45) Ambulate 08,12,20 (11/22/18 15:35) Sequential Compression Device .once (11/22/18 15:35) Dvt/Vte Risk - Notifiy Physici .ONCE (11/22/18 15:35) Carboxymethylcell Ophth Soln (Refresh Pl (11/22/18 21:00) Prednisone Tablet (Deltasone Tablet) (11/23/18 08:00) Furosemide Tablet (Lasix Tablet) (11/22/18 17:00) Bethanechol Tablet (Urecholine Tablet) (11/22/18 16:00) Cbc With Automated Diff (11/23/18 06:00) Comprehensive Metabolic Panel (11/23/18 06:00) Incentive Spirometry (Nursing) Q2H (11/22/18 17:59) [place] Hose 09,21 (11/22/18 17:59) Catheter(Urinary) Discontinue (11/23/18 11:37) Patient Visit (11/23/18 ) Gait Training, Ea 15 Min (11/23/18 ) Ekg Tracing (11/23/18 14:04) Cbc With Automated Diff (11/25/18 06:00) Comprehensive Metabolic Panel (11/25/18 06:00) Echo W Doppler/Color Flow (11/24/18 12:20) Rehab Nursing Orders: Ongoing Assess. of Function Status, Bladder Management, Bladder Scan, Bladder Training, Bowel Management, Disease Management & Educaiton, DVT Prophylaxis, Fall Prevention, Fluid/Electrolyte/Nutrition Mgmt, Infection Prevention, Medication Management & Education, Management of Risks & Complications, Management of Skin Intergrity, Nutrition Management, Pain Management, Patient/Family Support, Safety Management Intensity of Therapy to be met Patient to be seen: Min.3h per day/5 of 7d PT IPOC Problem List: Activity Tolerance, Functional Strength, Safety, Balance, Gait, Transfer, Bed Mobility Treatment Plan: Continue Plan of Care Bed Mobility, Education, Functional Activity Lizet, Functional Strength, Group Therapy, Gait, Safety, Therapeutic Exercise, Transfers Treatment Duration: Dec 06, 2018 Frequency: At least 5 of 7 days/Wk (IRF) Estimated Hrs Per Day: 1.5 hours per day OT IPOC Problems: Decreased Activ Tolerance, Decreased UE Strength, Impaired Funct Balance, Impaired I ADL's, Impaired Self-Care Skills OT Treatment, Training and Edu: Yes OT Problems Pt would benefit from skilled OT services in order to increase independence in ADLs and functional mobility in order for pt to safely return home. Plan of Care: ADL Retraining, Caregiver Training, Functional Mobility, Group Exercise/Act as Ind, UE Funct Exercise/Act Treatment Duration: Dec 13, 2018 Frequency: At least 5 of 7 days/Wk (IRF) Estimated Hrs Per Day: 1.[address] IPOC Speech Therapy Treatment Plan: Continue Plan of Care Treatment Duration: Nov 29, 2018 Frequency: 5 times per week Estimated Hrs Per Day: .5 hour per day Beater Operator/Case Mgmt Beater Operator/Case Managemen: Discharge Planning Dietitian/Apprentice Lineman Third Step Dietitian/Apprentice Lineman Third Step to monitor nutritional status and make changes and/or recommendations as needed and work with speech pathology on dietary upgrades as the occur. Physician IPOC Medical Issues being managed closely and that require the 24 hour availability of a physician: Urinary retention will require lam cath maintenance and Urology consultation along with Cardiology for and AF management at night risk for RVR Medical Issues: Bowel/Bladder Function, DVT Prophylaxis, Falls Precautions, Fluid/Electrolyte/Nutrition Balance, Pain Management Brief Synthesis of Preadmission Screen, Post-Admission Evaluation, and Therapy Evaluations: Physical therapy will work towards stable ambulation with walker for joint replacement and fall prevention Occupational Therapy will help regain ADLs and safely regain hygiene practices Medical Prognosis: Good Anticipated Length of Stay: 7 days SHAWNA ADEN DO Nov 23, 2018 08:11
[2018-11-23] MEDS ORDERED: ZINC AMINO ACID CHELATE PO SCH (09:00)
[2018-11-23] MEDS ORDERED: NON-FORMULARY MEDICATION 1 EA EA (Fish Oil/Borage/Flax/Om3,6,9#1 (Omega 3-6-9 1,200 mg Sof PO SCH (09:00)
[2018-11-23] MEDS ORDERED: NON-FORMULARY MEDICATION 1 EA EA (Vit C/E/Zn/Coppr/Lutein/Zeaxan (Preservision Areds 2 Sof PO SCH (09:00)
[2018-11-23] MEDS ORDERED: NON-FORMULARY MEDICATION 1 EA EA (Allopurinol 300 MG) PO SCH (09:00)
[2018-11-23] MEDS ORDERED: NON-FORMULARY MEDICATION 1 EA EA (Pedi Mv No.79/Ferrous Fumarate (Flintstones with Iron Ta PO SCH (09:00)
[2018-11-23] MEDS ORDERED: NON-FORMULARY MEDICATION 1 EA EA (Cholecalciferol (Vitamin D3) (Vitamin D3) 1,000 UNIT) PO SCH (09:00)
[2018-11-23] MEDS ORDERED: NON-FORMULARY MEDICATION 1 EA EA (Omeprazole 40 MG) PO SCH (09:00)
[2018-11-23] MEDS ORDERED: NON-FORMULARY MEDICATION 1 EA EA (Vitamin B Complex 1 CAP) PO SCH (09:00)
[2018-11-23] MEDS: OMEGA 3 (FISH OIL) 1000 MG CAP PO SCH (09:07)
[2018-11-23] MEDS: SENNA W/DOCUSATE (SENOKOT S) TABLET PO SCH ×2 (09:08→20:41)
[2018-11-23] MEDS: ALLOPURINOL 300 MG (ZYLOPRIM) TAB PO SCH (09:08)
[2018-11-23] MEDS: APIXABAN 2.5 MG (ELIQUIS) TABLET PO SCH ×2 (09:08→20:41)
[2018-11-23] MEDS: VITAMIN D3 1,000 UNITS (CHOLECALCIFEROL) TABLET PO SCH (09:08)
[2018-11-23] MEDS: predniSONE 5 MG TAB PO SCH (09:08)
[2018-11-23] MEDS: CARVEDILOL 6.25 MG (COREG) TAB PO SCH ×2 (09:08→20:41)
[2018-11-23] MEDS: ARTIFICAL TEARS 0.4 ML UNIT DOSE (REFRESH PLUS) OU SCH ×2 (09:11→20:41)
[2018-11-23 09:12] VITALS: BP 110/67
--- NOTE | 2018-11-23 09:55 | Physical Therapy Daily Note ---
PT Daily Note-Current Subjective Pt reports he has been up in the chair for breakfast today. C/O right lateral thigh burning. Transfers Therapy Code Descriptions/Definitions Functional [place] Measure: 0=Not Assessed/NA 4=Minimal Assistance 1=Total Assistance 5=Supervision or Setup 2=Maximal Assistance 6=Modified [place] 3=Moderate Assistance 7=Complete [place] Therapy Quality Codes: 6 Independent with activity with or without an assistive device 5 Patient requires set up or clean up by helper. Patient completes activity by themselves 4 Supervision or touching assist (CGA). [place] provide cues , steadying assist 3 The helper provides less than half the effort to complete the activity 2 The helper provides more than half the effort to complete the activity 1 Dependent. The helper does all the effort to complete an activity 7 Patient refused to complete or attempt activity 9 The patient did not perform the activity before the current illness or injury 88 Not attempted due to Medical conditions or safety concerns Transfer supine to sit with Min assist for the right leg to return to bed. Weight Bearing Right Lower Extremity: Right Weight Bearing/Tolerated Left Lower Extremity: Left Full Weight Bearing Gait Training Gait Assistive Device: FWW Ambulate 175ft with FWW and CGA. Pt education to work step through gait with increased wt bear on the right. Assessment Primary limitation is (R) lateral thigh pain and burning during wt bearing rated 6/10. PT Short Term Goals Short Term Goals Time Frame: Nov 29, 2018 Transfers (B,C,W/C) (FIM): 5 Gait (FIM): 4 Distance (FIM): 3=150 ft Gait Assistive Device: FWW PT Assisted Goals Environmental Web Crawler Goals PT Assisted Goals Time Frame: Dec 06, 2018 Transfers (B,C,W/C) (FIM): 7 Sit to Lying (QC): 6 Lying-Sitting on Side/Bed(QC): 6 Sit to Stand (QC): 6 Roll Left to Right (QC): 6 Chair/Ofq-ie-Hekks Xfer(QC): 6 Car Transfer (QC): 6 Does the Patient Walk: Yes Gait (FIM): 6 Gait distance (FIM): 3=150 ft Walk 10 feet (QC): 6 Walk 10ft-Uneven Surface(QC): 6 Walk 50ft with 2 Turns (QC): 6 Walk 150 ft (QC): 6 Gait Assistive Device: FWW Does the Pt use WC or Scooter?: No Stairs (FIM): 5 # of Steps: 4 1 Step (curb) (QC): 6 4 Steps (QC): 6 12 Steps (QC): 9 Picking up an Object (QC): 88 PT Plan Treatment/Plan Treatment Plan: Continue Plan of Care Treatment Plan: Bed Mobility, Education, Functional Activity Liz[place], Functional Strength, Group Therapy, Gait, Safety, Therapeutic Exercise, Transfers Treatment Duration: Dec 06, 2018 Frequency: At least 5 of 7 days/Wk (IRF) Estimated Hrs Per Day: 1.5 hours per day Patient and/or Family Agrees t: Yes Time/GCodes Time In: 924 Time Out: 939 Total Billed Treatment Time: 15 Total Billed Treatment visit, gait 15 min RADHA COMER PT Nov 23, 2018 09:55
[2018-11-23] MEDS: ZINC SULFATE 220 MG CAPSULE PO SCH (11:07)
--- NOTE | 2018-11-23 12:20 | Consultation-Cardiology ---
HPI-Cardiology Cardiology Consultation: Date of Consultation 11/23/18 Date of Admission Attending Physician Nohelia Arrington DO Admitting Physician Rosemary,Local Physician Consulting Physician José GRIFFITHS MD HPI: Time Seen by a Provider: 11:00 Chief Complaint: Post hip surgery This is a 83-year-old gentleman who presents to inpatient rehabilitation unit after recent hip fracture and hip surgery. History of atrial fibrillation on Eliquis. atrial fibrillation episode in 2016, cardioversion done, hyperlipidemia, hypertension, COPD, history of cardiac murmur, DVT left arm, obstructive sleep apnea. History of hyperlipidemia on statin therapy. The patient is also on carvedilol. He denies any significant chest pain, shortness of breath, palpitation, syncope or near syncope. Previous smoker but does not smoke anymore. No significant family history. Review of Systems-Cardiology Review of Systems Constitutional: As described under HPI; No As described under HPI, No no symptoms reported, No chills, No fever, No lightheadedness Eyes: No As described under HPI, No no symptoms reported, No blindness, No blurred vision, No contact lenses, No drainage, No decreased acuity, No foreign body sensation, No pain, No vision change Ears/Nose/Throat: No As described under HPI, No no symptoms reported, No chronic hearing loss, No ear discharge, No ear pain, No nasal drainage, No ulcerations Respiratory: No no symptoms reported; As described under HPI; No As described under HPI, No cough, No orthopnea, No shortness of breath, No SOB with excertion Cardiovascular: No no symptoms reported; As described under HPI; No As described under HPI, No chest pain, No edema, No irregular heart rate, No lightheadedness, No palpitations Gastrointestinal: No no symptoms reported, No As described under HPI, No abdomen distended, No abdominal pain, No blood streaked bowels, No constipation, No diarrhea, No nausea, No vomiting, No stool coloration changes Genitourinary: No As described under HPI, No burning, No dysuria, No discharge, No frequency, No flank pain, No hematuria, No urgency Skin: No rash, No skin related problems, No ulcerations Psychiatric/Neurological: No anxiety, No depression, No seizure, No focal weakness, No syncope Hematologic: No bleeding abnormalities All Other Systems Reviewed Negative Unless Noted: Yes TNG-Hpfyfd-Ekabiu Hx Patient Social History Marrital Status: 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 Family Medical History Family History: Cardiovascular disease 19 MOTHER Diabetes mellitus 19 MOTHER FH: prostate cancer G8 BROTHER Myocardial infarction 19 FATHER Allergies and Home Medications Allergies Coded Allergies: No Allergy Information Available (Unverified , 11/21/18) Home Medications Acetaminophen 500 Mg Tablet, 1,000 MG PO HS, (Reported) Allopurinol 300 Mg Tablet, 300 MG PO DAILY, (Reported) Apixaban 2.5 Mg Tablet, 2.5 MG PO BID, (Reported) Atorvastatin Calcium 40 Mg Tablet, 40 MG PO HS, (Reported) Carboxymethylcellulose Sodium 15 Ml Drops, 1 DROP OU BID, (Reported) Carvedilol 6.25 Mg Tablet, 6.25 MG PO BID, (Reported) Cholecalciferol (Vitamin D3) 1,000 Unit Capsule, 1,000 UNIT PO DAILY, (Reported) Diphenhydramine HCl 25 Mg Capsule, 25 MG PO HS PRN for ALLERGIES, (Reported) Fish Oil/Borage/Flax/Om3,6,9#1 1,200 Mg Capsule, 1,200 MG PO DAILY, (Reported) Fluticasone Propionate 9.9 Ml [place].susp, 1 SPRAY NS HS PRN for ALLERGIES, (Reported) Fluticasone/Salmeterol 1 Each Blst.w.dev, 1 PUFF IH BID, (Reported) Furosemide 20 Mg Tablet, 20 MG PO HS, (Reported) Iron Polysaccharide Complex 150 Mg Capsule, 150 MG PO BID, (Reported) Omeprazole 40 Mg Capsule.dr, 40 MG PO DAILY, (Reported) Oxycodone HCl 5 Mg Tablet, 5 MG PO Q6H PRN for PAIN-SEVERE, (Reported) Oxycodone HCl/Acetaminophen 1 Each Tablet, 1-2 TAB PO Q4H PRN for PAIN-MODERATE, (Reported) Pantoprazole Sodium 40 Mg Tablet.dr, 40 MG PO DAILY, (Reported) Pedi Mv No.79/Ferrous Fumarate 18 Mg Tab.chew, 18 MG PO DAILY, (Reported) Prednisone 5 Mg Tablet, 2.5 MG PO Q48H, (Reported) TAKES 1/2 (5MG) TABLET Tamsulosin HCl 0.4 Mg Cap, 0.4 MG PO HS, (Reported) Tramadol HCl 50 Mg Tablet, 50-100 MG PO Q6H PRN for PAIN-MILD, (Reported) Vit C/E/Zn/Coppr/Lutein/Zeaxan 1 Each Capsule, 1 CAP PO DAILY, (Reported) Vitamin B Complex 1 Each Capsule, 1 CAP PO DAILY, (Reported) Zinc Amino Acid Chelate 50 Mg Tablet, 50 MG PO DAILY, (Reported) [Jessy's Leg Cramps] , 1 TAB SL HS PRN for CRAMPS, (Reported) Patient Home Medication List Home Medication List Reviewed: Yes Physical Exam-Cardiology Physical Exam Vital Signs/I&O 11/24/18 05:42 Temp 99.2 Pulse 78 Resp 20 B/P (MAP) 119/64 (82) Pulse Ox 96 O2 Delivery Room Air 11/24/18 00:00 Intake Total 770 ml Balance 770 ml Capillary Refill : Less Than 3 Seconds Constitutional: appears stated age, AAO x 3; No apparent distress; well- developed, well-nourished HEENT: PERRL; No discharge; hearing is well preserved, oral hygience is good; No ulceration, No xanthelasmas are seen Neck: No carotid bruit; carotid pulses are 2 + bilaterally Respiratory: No accessory muscle use, No respiratory distress, No chest tender, No chest expansion is symmetric; chest is bilaterally symmetric; No lungs clear to percussion; lungs clear to auscultation; No crackles, No rhonchi, No rales, No stridor, No wheezing, No pleural rub, No other Cardiovascular: regular rate-rhythm, S1 and S2, systolic murmur Gastrointestinal: No tender; soft; No round, No distended, No pulsatile mass, No organomegaly, No guarding, No rebound, No tenderness, No hernia, No mass; audible bowel sounds; No abnormal bowel sounds, No abdominal bruits, No spleenomegaly, No other Rectal: deferred Extremities: normal inspection; No clubbing, No cyanosis; no lower extremity edema bilateral; No significant edema Neurologic/Psychiatric: no motor/sensory deficits, alert, normal mood/affect, oriented x 3, power is 5/5 both on sides Skin: normal color; No rash, No ulcerations Data Review Labs A/P-Cardiology Assessment/Admission Diagnosis Hip fracture, hip surgery, paroxysmal Atrial fibrillation, COPD, obstructive sleep apnea, Hypertension, Hyperlipidemia, Systolic murmur Plan Continue inpatient rehabilitation for hip fracture, hip surgery, paroxysmal Atrial fibrillation, request EKG. Continue apixaban and carvedilol. Hypertension, continue carvedilol. Hyperlipidemia, continue statin therapy. Systolic murmur, likely aortic stenosis. Recommend an echocardiogram. COPD, stable. Obstructive sleep apnea, follow clinically. Thank you for your consultation. Please call me if you have any questions. Andrea Griffiths MD, FACP, FACC, FSCAI, FHRS, CCDS Interventional Cardiology Cardiac Electrophysiology Vascular Medicine and Endovascular Interventions Clinical Quality Measures DVT/VTE Risk/Contraindication: Risk Factor Score Per Nursin RFS Level Per Nursing on Admit: 4+=Very High José GRIFFITHS MD Nov 23, 2018 12:20
--- NOTE | 2018-11-23 15:38 | PM&R Progress Note ---
Subjective HPI/CC On Admission Date Seen by Provider: Nov 23, 2018 Time Seen by Provider: 12:15 CC: Debility following right hip replacement uncomplicated by Dr Nickerson POD # 3 HPI: This is an 83yoWM clinic pt of Dr. Ramirez in [place] who presented to the inpatient rehab following an uncomplicated right total hip replacement after her failed conservative treatment. He has a history of AF and sees Dr. Vera cardiology for that but has had significant weakness prior to sx and subsequent to surgery so he was found to meet criteria for inpatient rehab and has some significant problems with urinary retention maintained on Lam catheter since unable to urinate the night of surgery. At this current time pt remains stable, hgb slightly low at 8.8 his AF has done well after an atrial fibrillation episode in the OR but remains in normal sinus rhythm now. He has had 3 bowel movements this morning before leaving [facility] in [place]. He will return home at [place]. His prior level of functioning was use of assistive devices and fairly independent with ADLs. He has been for 49 years. Subjective/Events-last exam Lam was taken out by urology Appreciate urology expertise Creatinine stable at 1.46 Postop hemoglobin 8.7 EKG and echocardiogram will be obtained per cardiology consultation Pain is well controlled Overall feels much better Conferred with RN Reviewed therapy notes Check meds and labs Review of Systems General: Fatigue Genitourinary: Retention Objective Exam Vital Signs Vital Signs Date Time Temp Pulse Resp B/P (MAP) Pulse Ox O2 Delivery O2 Flow Rate FiO2 11/24/18 09:00 96 Room Air 11/24/18 05:42 99.2 78 20 119/64 (82) Capillary Refill : Less Than 3 Seconds General Appearance: No Apparent Distress, WD/WN, Chronically ill HEENT: PERRL/EOMI, Normal ENT Inspection, Pharynx Normal, Moist Mucous Membranes Neck: Full Range of Motion, Normal Inspection, Non Tender, Supple Respiratory: Chest Non Tender, Lungs Clear, Normal Breath Sounds, No Accessory Muscle Use, No Respiratory Distress Cardiovascular: Regular Rate, Rhythm, No Edema, No Gallop, No JVD, Systolic Murmur Gastrointestinal: Normal Bowel Sounds, No Organomegaly, No Pulsatile Mass, Non Tender, Soft Back: Normal Inspection, No CVA Tenderness, No Vertebral Tenderness Extremity: Normal Capillary Refill, Normal Inspection, Normal Range of Motion (except right leg), Non Tender, No Calf Tenderness, No Pedal Edema Neurologic/Psychiatric: Alert, Oriented x3, No Motor/Sensory Deficits, Normal Mood/Affect Skin: Normal Color, Warm/Dry Lymphatic: No Adenopathy Results/Procedures Lab Patient resulted labs reviewed. FIM Transfers Therapy Code Descriptions/Definitions Functional [place] Measure: 0=Not Assessed/NA 4=Minimal Assistance 1=Total Assistance 5=Supervision or Setup 2=Maximal Assistance 6=Modified [place] 3=Moderate Assistance 7=Complete [place] Therapy Quality Codes: 6 Independent with activity with or without an assistive device 5 Patient requires set up or clean up by helper. Patient completes activity by themselves 4 Supervision or touching assist (CGA). [place] provide cues , steadying assist 3 The helper provides less than half the effort to complete the activity 2 The helper provides more than half the effort to complete the activity 1 Dependent. The helper does all the effort to complete an activity 7 Patient refused to complete or attempt activity 9 The patient did not perform the activity before the current illness or injury 88 Not attempted due to Medical conditions or safety concerns Transfers (B, C, W/C) (FIM): 4 (CGA sit to/from stand from recliner) Roll Left to Right (QC): 3 Supine to/from Sit: 3 (assist to get both legs into bed. ) Sit to/from Stand: 4 (CGA) Sit to Lying (QC): 3 Sit to Stand (QC): 4 Chair/Gcs-vl-Bgcrq Xfer(QC): 4 Car Transfer (QC): 4 Gait Training Does the Patient Walk?: Yes Gait (FIM): 2 Distance (FIM): 0=420-47 ft Walk 10 feet (QC): 4 Walk 50 ft with 2 Turns(QC): 4 Walk 150 ft (QC): 88 Walking 10ft/uneven surface-QC: 4 Gait Assistive Device: FWW Wheelchair Training Does the Pt Use a Wheelchair?: No Stair Training Stairs (FIM): 1 #of Steps: 1 1 Step (curb) (QC): 3 4 Steps (QC): 88 12 Steps (QC): 88 Level of Assist: 4 Balance Picking up an Object (QC): 88 (contraindicated) Mental Status/Objective Comprehension: 6 Expression: 6 Social Interaction: 7 Problem Solvin Memory: 4 ADL-Treatment Feedin (Pt able to open all containers and bring food to mouth.) Eating (QC): 6 Groomin (CGA. pt able to brush teeth and hair standing at sink with FWW, OT set up bathroom for grooming) Oral Hygiene (QC): 4 Bathin (Pt completed 10/26 parts on SC, requiring assistance with BLE lower legs/feet. Pt stood for washing buttocks and periarea at GB with CGA.) Bathing Location: L Arm, R Arm, L Upper Leg, R Upper Leg, Chest, Abdomen, Buttocks, Perineal Area Shower/Bathe Self (QC): 3 Upper Extremity Dressin (set up, pt donned button up shirt ) Upper Body Dressing (QC): 5 Lower Extremity Dressin (Pt completed 04/26, pt able to manage pants/underwear up over hips but required assistance threading LEs into pant legs. OT donned thigh high ANDREA hose for pt) Lower Body Dressing (QC): 2 On/Off Footwear (QC): 1 Toiletin (CGA during standing for clothing management. Pt completed 05/19) Toileting Hygiene (QC): 4 Toilet/Commode Transfer: 4 (CGA sit to/from toilet) Toilet Transfer (QC): 4 Shower: 4 (CGA in/out of shower) Assessment/Plan Assessment and Plan Assess & Plan/Chief Complaint Assessment: Right hip replacement POD # 4 Urinary retention now DC lam per Dr Arroyo CRI stable creat 1.46 HTN AF Murmur of ECHO ordered Post op anemia monitor closely no indication for transfusion GERD Gout Plan: Dr Arroyo and Dr Griffiths appreciated Monitor hgb and creat Eliquis IRF protocol IS BM regimen (1) Status post right hip replacement Status: Acute (2) Atrial fibrillation Status: Chronic Qualifiers: Atrial fibrillation type: paroxysmal Qualified Codes: I48.0 - Paroxysmal atrial fibrillation (3) Urinary retention Status: Acute (4) Gout Status: Chronic Qualifiers: Gout site: unspecified site Gout etiology: unspecified cause Chronicity: unspecified Qualified Codes: M10.9 - Gout, unspecified (5) CAD (coronary artery disease) Status: Chronic Qualifiers: Coronary Disease-Associated Artery/Lesion type: [place] artery [place] vs. transplanted heart: [place] heart Associated angina: without angina Qualified Codes: I25.10 - Atherosclerotic heart disease of [place] coronary artery without angina pectoris (6) Hyperlipemia Status: Chronic Qualifiers: Hyperlipidemia type: mixed hyperlipidemia Qualified Codes: E78.2 - Mixed hyperlipidemia (7) Murmur Status: Chronic (8) Osteoarthritis Status: Chronic Qualifiers: Osteoarthritis location: unspecified site Osteoarthritis type: unspecified Qualified Codes: M19.90 - Unspecified osteoarthritis, unspecified site (9) GERD (gastroesophageal reflux disease) Status: Chronic Qualifiers: Esophagitis presence: without esophagitis Qualified Codes: K21.9 - Gastro-esophageal reflux disease without esophagitis (10) Hypertension Status: Chronic Qualifiers: Hypertension type: essential hypertension Qualified Codes: I10 - Essential (primary) hypertension (11) Valvular heart disease Status: Chronic (12) Postoperative anemia Status: Acute (13) Lam catheter in place Status: Acute (14) Advanced age Status: Chronic SHAWNA ADEN DO Nov 23, 2018 15:38
[2018-11-23] MEDS: FUROSEMIDE 20 MG (LASIX) TAB PO SCH (17:15)
[2018-11-23 17:43] VITALS: BP 150/78
[2018-11-23] MEDS: ACETAMINOPHEN 500 MG TAB (TYLENOL) PO SCH (20:41)
[2018-11-23] MEDS: TAMSULOSIN 0.4 MG (FLOMAX) CAP PO SCH (20:42)
[2018-11-24 05:42] VITALS: BP 119/64
[2018-11-24] MEDS: IRON POLYSAC 150 MG CAP (NIFEREX) PO SCH ×2 (06:28→17:43)
[2018-11-24] MEDS: BETHANECHOL 10 MG (URECHOLINE) TAB PO SCH ×4 (06:28→20:02)
[2018-11-24] MEDS: MULTIVIT W/MINERALS TAB (THERAGRAN M) PO SCH (06:28)
[2018-11-24] MEDS: PANTOPRAZOLE 40 MG (PROTONIX) TAB PO SCH (06:28)
[2018-11-24] MEDS: APIXABAN 2.5 MG (ELIQUIS) TABLET PO SCH ×2 (09:16→21:24)
[2018-11-24] MEDS: ALLOPURINOL 300 MG (ZYLOPRIM) TAB PO SCH (09:16)
[2018-11-24] MEDS: ARTIFICAL TEARS 0.4 ML UNIT DOSE (REFRESH PLUS) OU SCH ×2 (09:16→21:23)
[2018-11-24] MEDS: VITAMIN D3 1,000 UNITS (CHOLECALCIFEROL) TABLET PO SCH (09:17)
[2018-11-24] MEDS: ZINC SULFATE 220 MG CAPSULE PO SCH (09:17)
[2018-11-24] MEDS: OMEGA 3 (FISH OIL) 1000 MG CAP PO SCH (09:17)
[2018-11-24] MEDS: SENNA W/DOCUSATE (SENOKOT S) TABLET PO SCH ×2 (09:17→21:28)
[2018-11-24] MEDS: CARVEDILOL 6.25 MG (COREG) TAB PO SCH ×2 (09:17→21:24)
[2018-11-24] MEDS: RT-ADVAIR HFA 45/21 MCG PER PUFF IH SCH ×2 (09:18→20:46)
--- NOTE | 2018-11-24 11:10 | Cardiology Progress Note ---
Cardiology SOAP Progress Note Subjective: no cardiac symptoms. Objective: I&O/Vital Signs 11/24/18 05:42 Temp 99.2 Pulse 78 Resp 20 B/P (MAP) 119/64 (82) Pulse Ox 96 O2 Delivery Room Air 11/24/18 00:00 Intake Total 770 ml Balance 770 ml Weight (Pounds): 172 Weight (Ounces): 2.0 Weight (Calculated Kilograms): [id number] Constitutional: appears stated age, AAO x 3; No apparent distress; well- developed, well-nourished Respiratory: No accessory muscle use, No respiratory distress, No chest tender, No chest expansion is symmetric; chest is bilaterally symmetric; No lungs clear to percussion; lungs clear to auscultation; No crackles, No rhonchi, No rales, No stridor, No wheezing, No pleural rub, No other Cardiovascular: regular rate-rhythm, S1 and S2, systolic murmur Gastrointestional: No tender; soft; No round, No distended, No pulsatile mass, No organomegaly, No guarding, No rebound, No tenderness, No hernia, No mass; audible bowel sounds; No abnormal bowel sounds, No abdominal bruits, No spleenomegaly, No other Extremities: normal inspection; No clubbing, No cyanosis; no lower extremity edema bilateral; No significant edema Neurologic/Psychiatric: no motor/sensory deficits, alert, normal mood/affect, oriented x 3, power is 5/5 both on sides Skin: normal color; No rash, No ulcerations A/P: Assessment/Dx: Hip fracture, hip surgery, paroxysmal Atrial fibrillation, COPD, obstructive sleep apnea, Hypertension, Hyperlipidemia, Systolic murmur Plan: Continue inpatient rehabilitation for hip fracture, hip surgery, paroxysmal Atrial fibrillation, request EKG. Continue apixaban and carvedilol. EKG yesterday 11/24/2018 shows sinus rhythm with left anterior fascicular block, right bundle branch block. Hypertension, continue carvedilol. Hyperlipidemia, continue statin therapy. Systolic murmur, likely aortic stenosis. Recommend an echocardiogram. COPD, stable. Obstructive sleep apnea, follow clinically. Thank you for your consultation. Please call me if you have any questions. Andrea Griffiths MD, FACP, FACC, FSCAI, FHRS, CCDS Interventional Cardiology Cardiac Electrophysiology Vascular Medicine and Endovascular Interventions José GRIFFITHS MD Nov 24, 2018 11:09
--- NOTE | 2018-11-24 12:05 | PM&R Progress Note ---
Subjective HPI/CC On Admission Date Seen by Provider: Nov 24, 2018 Time Seen by Provider: 12:15 CC: Debility following right hip replacement uncomplicated by Dr Nickerson POD # 3 HPI: This is an 83yoWM clinic pt of Dr. Ramirez in [place] who presented to the inpatient rehab following an uncomplicated right total hip replacement after her failed conservative treatment. He has a history of AF and sees Dr. Vera cardiology for that but has had significant weakness prior to sx and subsequent to surgery so he was found to meet criteria for inpatient rehab and has some significant problems with urinary retention maintained on Marley catheter since unable to urinate the night of surgery. At this current time pt remains stable, hgb slightly low at 8.8 his AF has done well after an atrial fibrillation episode in the OR but remains in normal sinus rhythm now. He has had 3 bowel movements this morning before leaving [facility] in [place]. [place] at [place]. His prior level of functioning was use of assistive devices and fairly independent with ADLs. He has been for 49 years. Subjective/Events-last exam Voiding well without retention or incontinence Temperature was 99.0 last night Was up to a shower Wondered when the swelling in his right leg would go down and I told him that that would be a process the more he is ambulating EKG and echocardiogram will be performed per cardiology consultation Pain is well controlled Overall feels much better Conferred with RN Reviewed therapy notes Check meds and labs Review of Systems General: Fatigue Musculoskeletal: leg pain Objective Exam Vital Signs Vital Signs Date Time Temp Pulse Resp B/P (MAP) Pulse Ox O2 Delivery O2 Flow Rate FiO2 11/24/18 09:00 96 Room Air 11/24/18 05:42 99.2 78 20 119/64 (82) Capillary Refill : Less Than 3 Seconds General Appearance: No Apparent Distress, WD/WN, Chronically ill HEENT: PERRL/EOMI, Normal ENT Inspection, Pharynx Normal, Moist Mucous Membranes Neck: Full Range of Motion, Normal Inspection, Non Tender, Supple Respiratory: Chest Non Tender, Lungs Clear, Normal Breath Sounds, No Accessory Muscle Use, No Respiratory Distress Cardiovascular: Regular Rate, Rhythm, No Edema, No Gallop, No JVD, Systolic Murmur Gastrointestinal: Normal Bowel Sounds, No Organomegaly, No Pulsatile Mass, Non Tender, Soft Back: Normal Inspection, No CVA Tenderness, No Vertebral Tenderness Extremity: Normal Capillary Refill, Normal Inspection, Normal Range of Motion (except right leg), Non Tender, No Calf Tenderness, No Pedal Edema Neurologic/Psychiatric: Alert, Oriented x3, No Motor/Sensory Deficits, Normal Mood/Affect Skin: Normal Color, Warm/Dry Lymphatic: No Adenopathy Results/Procedures Lab Patient resulted labs reviewed. FIM Transfers Therapy Code Descriptions/Definitions Functional [place] Measure: 0=Not Assessed/NA 4=Minimal Assistance 1=Total Assistance 5=Supervision or Setup 2=Maximal Assistance 6=Modified [place] 3=Moderate Assistance 7=Complete [place] Therapy Quality Codes: 6 Independent with activity with or without an assistive device 5 Patient requires set up or clean up by helper. Patient completes activity by themselves 4 Supervision or touching assist (CGA). [place] provide cues , steadying assist 3 The helper provides less than half the effort to complete the activity 2 The helper provides more than half the effort to complete the activity 1 Dependent. The helper does all the effort to complete an activity 7 Patient refused to complete or attempt activity 9 The patient did not perform the activity before the current illness or injury 88 Not attempted due to Medical conditions or safety concerns Transfers (B, C, W/C) (FIM): 4 (CGA sit to/from stand from recliner) Roll Left to Right (QC): 3 Supine to/from Sit: 3 (assist to get both legs into bed. ) Sit to/from Stand: 4 (CGA) Sit to Lying (QC): 3 Sit to Stand (QC): 4 Chair/Hjq-hu-Nchhk Xfer(QC): 4 Car Transfer (QC): 4 Gait Training Does the Patient Walk?: Yes Gait (FIM): 2 Distance (FIM): 2=839-91 ft Walk 10 feet (QC): 4 Walk 50 ft with 2 Turns(QC): 4 Walk 150 ft (QC): 88 Walking 10ft/uneven surface-QC: 4 Gait Assistive Device: FWW Wheelchair Training Does the Pt Use a Wheelchair?: No Stair Training Stairs (FIM): 1 #of Steps: 1 1 Step (curb) (QC): 3 4 Steps (QC): 88 12 Steps (QC): 88 Level of Assist: 4 Balance Picking up an Object (QC): 88 (contraindicated) Mental Status/Objective Comprehension: 6 Expression: 6 Social Interaction: 7 Problem Solvin Memory: 4 ADL-Treatment Feedin (Pt able to open all containers and bring food to mouth.) Eating (QC): 6 Groomin (CGA. pt able to brush teeth and hair standing at sink with FWW, OT set up bathroom for grooming) Oral Hygiene (QC): 4 Bathin (Pt completed 10/26 parts on SC, requiring assistance with BLE lower legs/feet. Pt stood for washing buttocks and periarea at GB with CGA.) Bathing Location: L Arm, R Arm, L Upper Leg, R Upper Leg, Chest, Abdomen, Buttocks, Perineal Area Shower/Bathe Self (QC): 3 Upper Extremity Dressin (set up, pt donned button up shirt ) Upper Body Dressing (QC): 5 Lower Extremity Dressin (Pt completed 04/26, pt able to manage pants/underwear up over hips but required assistance threading LEs into pant legs. OT donned thigh high ANDREA hose for pt) Lower Body Dressing (QC): 2 On/Off Footwear (QC): 1 Toiletin (CGA during standing for clothing management. Pt completed 05/19) Toileting Hygiene (QC): 4 Toilet/Commode Transfer: 4 (CGA sit to/from toilet) Toilet Transfer (QC): 4 Shower: 4 (CGA in/out of shower) Assessment/Plan Assessment and Plan Assess & Plan/Chief Complaint Assessment: Right hip replacement POD # 5 Urinary retention now resolved and voiding well thanks to Dr Arroyo CRI stable at 1.45 checking labs in morning HTN AF Murmur of type ECHO pending Post op anemia no indication for transfusions GERD Gout Plan: Dr Arroyo and Dr Griffiths appreciated Monitor hgb and creat Eliquis IRF protocol Urination monitored (1) Status post right hip replacement Status: Acute (2) Atrial fibrillation Status: Chronic Qualifiers: Atrial fibrillation type: paroxysmal Qualified Codes: I48.0 - Paroxysmal atrial fibrillation (3) Urinary retention Status: Acute (4) Gout Status: Chronic Qualifiers: Gout site: unspecified site Gout etiology: unspecified cause Chronicity: unspecified Qualified Codes: M10.9 - Gout, unspecified (5) CAD (coronary artery disease) Status: Chronic Qualifiers: Coronary Disease-Associated Artery/Lesion type: [place] artery [place] vs. transplanted heart: [place] heart Associated angina: without angina Qualified Codes: I25.10 - Atherosclerotic heart disease of [place] coronary artery without angina pectoris (6) Hyperlipemia Status: Chronic Qualifiers: Hyperlipidemia type: mixed hyperlipidemia Qualified Codes: E78.2 - Mixed hyperlipidemia (7) Murmur Status: Chronic (8) Osteoarthritis Status: Chronic Qualifiers: Osteoarthritis location: unspecified site Osteoarthritis type: unspecified Qualified Codes: M19.90 - Unspecified osteoarthritis, unspecified site (9) GERD (gastroesophageal reflux disease) Status: Chronic Qualifiers: Esophagitis presence: without esophagitis Qualified Codes: K21.9 - Gastro- esophageal reflux disease without esophagitis (10) Hypertension Status: Chronic Qualifiers: Hypertension type: essential hypertension Qualified Codes: I10 - Essential (primary) hypertension (11) Valvular heart disease Status: Chronic (12) Postoperative anemia Status: Acute (13) Marley catheter in place Status: Acute (14) Advanced age Status: Chronic SHAWNA ADEN DO Nov 24, 2018 12:05
[2018-11-24 17:42] VITALS: BP 123/68
[2018-11-24] MEDS: FUROSEMIDE 20 MG (LASIX) TAB PO SCH (17:43)
[2018-11-24] MEDS: ACETAMINOPHEN 500 MG TAB (TYLENOL) PO SCH (21:24)
[2018-11-24] MEDS: TAMSULOSIN 0.4 MG (FLOMAX) CAP PO SCH (21:24)
[2018-11-25] MEDS: MULTIVIT W/MINERALS TAB (THERAGRAN M) PO SCH (06:04)
[2018-11-25] MEDS: BETHANECHOL 10 MG (URECHOLINE) TAB PO SCH (06:04)
[2018-11-25] MEDS: PANTOPRAZOLE 40 MG (PROTONIX) TAB PO SCH (06:04)
[2018-11-25] MEDS: IRON POLYSAC 150 MG CAP (NIFEREX) PO SCH ×2 (06:04→17:24)
[2018-11-25 06:07] VITALS: BP 101/57
[2018-11-25 06:32] LABS: BASOPHILS % (AUTO) 0 % (0-10); EOSINOPHILS # (AUTO) 0.3 10^3/uL (0.0-0.3); EOSINOPHILS % (AUTO) 3 % (0-10); HEMATOCRIT 28 % (40-54); HEMOGLOBIN 9.2 G/DL (13.3-17.7); LYMPHOCYTES # (AUTO) 2.7 X 10^3 (1.0-4.0); LYMPHOCYTES % (AUTO) 27 % (12-44); MEAN CORPUSCULAR HEMOGLOBIN 34 PG (25-34); MEAN CORPUSCULAR HGB CONC 33 G/DL (32-36); MEAN CORPUSCULAR VOLUME 103 FL (80-99); MEAN PLATELET VOLUME 10.6 FL (7.4-10.4); MONOCYTES # (AUTO) 1.3 X 10^3 (0.0-1.0); MONOCYTES % (AUTO) 13 % (0-12); NEUTROPHILS # (AUTO) 5.8 X 10^3 (1.8-7.8); NEUTROPHILS % (AUTO) 57 % (42-75); PLATELET COUNT 215 10^3/uL (130-400); RED CELL DISTRIBUTION WIDTH 15.6 % (10.0-14.5); WHITE BLOOD COUNT 10.1 10^3/uL (4.3-11.0)
[2018-11-25 06:59] LABS: ALBUMIN 3.2 GM/DL (3.2-4.5); BILIRUBIN,TOTAL 0.9 MG/DL (0.1-1.0); CALCIUM 9.2 MG/DL (8.5-10.1); CREATININE SERUM 1.38 MG/DL (0.60-1.30); POTASSIUM 4.1 MMOL/L (3.6-5.0); TOTAL PROTEIN 6.2 GM/DL (6.4-8.2)
[2018-11-25 08:00] VITALS: BP 152/69
--- NOTE | 2018-11-25 08:00 | NUR ---
ADMITS TO SOB WITH EXERTION BUT STATES "IT'S BEEN THIS WAY SINCE I WAS A TEEN". ROOM AIR SAT 96%.
--- NOTE | 2018-11-25 08:19 | Progress Note ---
HARSHIL [facility]ARILLO [facility] 11/25/18 0819: Subjective Date Seen by a Provider: Nov 25, 2018 Time Seen by a Provider: 07:20 Subjective/Events-last exam Vitals are normal and stable. Slept well. Voiding and Stooling well Eating and drinking well. R Hip is a little sore. Does also mention a burning feeling going down his leg Weekend went ok for him LLQ Tenderness ROS: + : SOB, - : Chest pain, N/V/D, Fever or Chills Maurisio seems to to being tolerating his pain well. Prior to his hospitalization he was moderately able to navigate his house. He does have a good support group with his daughters, but his is suffering from RA. Due to this, I feel that Maurisio really needs to excell in PT/OT before really considering discharge. He also has some cognitive impairment based off of his SLUM score. I think Maurisio will be able to leave mid to late next week. Objective Exam Last Set of Vital Signs Vital Signs Date Time Temp Pulse Resp B/P (MAP) Pulse Ox O2 Delivery O2 Flow Rate FiO2 11/25/18 06:07 99.3 75 20 101/57 (72) 97 Room Air Capillary Refill : Less Than 3 Seconds I&O Intake and Output 11/25/18 00:00 Intake Total 2025 ml Balance 2025 ml Intake Oral 2025 ml # Voids 12 # Bowel Movements 5 General: Alert, Oriented X3, Cooperative, No Acute Distress Lungs: Clear to Auscultation, Normal Air Movement Heart: Regular Rate Abdomen: Normal Bowel Sounds, Soft Results Lab Laboratory Tests 11/25/18 05:35: White Blood Count 10.1, Red Blood Count 2.75L, Hemoglobin 9.2L, Hematocrit 28L, Mean Corpuscular Volume 103H, Mean Corpuscular Hemoglobin 34, Mean Corpuscular Hemoglobin Concent 33, Red Cell Distribution Width 15.6H, Platelet Count 215, Mean Platelet Volume 10.6H, Neutrophils (%) (Auto) 57, Lymphocytes (%) (Auto) 27, Monocytes (%) (Auto) 13H, Eosinophils (%) (Auto) 3, Basophils (%) (Auto) 0, Neutrophils # (Auto) 5.8, Lymphocytes # (Auto) 2.7, Monocytes # (Auto) 1.3H, Eosinophils # (Auto) 0.3, Basophils # (Auto) 0.0, Sodium Level 136, Potassium Level 4.1, Chloride Level 100, Carbon Dioxide Level 24, Anion Gap 12, Blood Urea Nitrogen 25H, Creatinine 1.38H, Estimat Glomerular Filtration Rate 49, BUN/Creatinine Ratio 18, Glucose Level 109H, Calcium Level 9.2, Corrected Calcium 9.8, Total Bilirubin 0.9, Aspartate Amino Transf (AST/SGOT) 20, Alanine Aminotransferase (ALT/SGPT) 11, Alkaline Phosphatase 82, Total Protein 6.2L, Albumin 3.2 Assessment/Plan Assessment/Plan Assess & Plan/Chief Complaint 1. Right ANNIKA 2. Burning sensation in the R Hip 1. PT/OT 2. Pain medication Clinical Quality Measures DVT/VTE Risk/Contraindication: Risk Factor Score Per Nursin RFS Level Per Nursing on Admit: 4+=Very High NOHELIA ADEN DO 11/25/18 2007: Supervisory-Addendum Brief Verification & Attestation Participated in pt care: history, MDM, physical Personally performed: exam, history, MDM, supervision of care Care discussed with: Medical Student Procedures: n/a Results interpretation: Verified all documentation Verification and Attestation of Medical Student E/M Service A medical student performed and documented this service in my presence. I reviewed and verified all information documented by the medical student and made modifications to such information, when appropriate. I personally performed the physical exam and medical decision making. Nohelia Aden, Nov 25, 2018,20:[address] [facility] Nov 25, 2018 08:19 NOHELIA ADEN DO Nov 25, 2018 20:07
[2018-11-25] MEDS ORDERED: METH2.5T PO (08:30)
[2018-11-25] MEDS ORDERED: DICL100G31 TOP (08:30)
--- NOTE | 2018-11-25 08:40 | Physical Therapy Daily Note ---
PT Daily Note-Current Subjective Patient in bed pre tx, agrees to PT, has 3/10 pain in right hip. Appearance Patient in bed post tx with nurse call, phone, tray, all needs met. Mental Status Patient Orientation: Person, Place, Situation Transfers Therapy Code Descriptions/Definitions Functional [place] Measure: 0=Not Assessed/NA 4=Minimal Assistance 1=Total Assistance 5=Supervision or Setup 2=Maximal Assistance 6=Modified [place] 3=Moderate Assistance 7=Complete [place] Therapy Quality Codes: 6 Independent with activity with or without an assistive device 5 Patient requires set up or clean up by helper. Patient completes activity by themselves 4 Supervision or touching assist (CGA). [place] provide cues , steadying assist 3 The helper provides less than half the effort to complete the activity 2 The helper provides more than half the effort to complete the activity 1 Dependent. The helper does all the effort to complete an activity 7 Patient refused to complete or attempt activity 9 The patient did not perform the activity before the current illness or injury 88 Not attempted due to Medical conditions or safety concerns Transfers (B, C, W/C) (FIM): 4 Scootin Rollin Supine to/from Sit: 4 Sit to/from Stand: 5 Bed to/from Chair: 5 occasional cues for hand placement and safety Weight Bearing Right Lower Extremity: Right Weight Bearing/Tolerated Left Lower Extremity: Left Full Weight Bearing Gait Training Gait (FIM): 5 Distance: 150'x2 Gait Level of Assist: 5 Gait Persons Needed: 1 Gait Assistive Device: FWW slow, antalgic, decreased stance time on right leg Exercises Supine Ex: Ankle pumps, Quad Set, Heel Slides Supine Reps: 15 Standing: Hip Abduction, Hamstring curls, Heel/toe raises, Mini squats Standing Reps: 15 Treatments LE exercise, bed mobility and transfers, ambulation Assessment Current Status: Fair Progress improving AROM PT Short Term Goals Short Term Goals Time Frame: Nov 29, 2018 Transfers (B,C,W/C) (FIM): 5 Gait (FIM): 4 Distance (FIM): 3=150 ft Gait Assistive Device: FWW PT [place] Crew Member Goals [place] Crew Member Goals PT [place] Crew Member Goals Time Frame: Dec 06, 2018 Transfers (B,C,W/C) (FIM): 7 Sit to Lying (QC): 6 Lying-Sitting on Side/Bed(QC): 6 Sit to Stand (QC): 6 Roll Left to Right (QC): 6 Chair/Adp-op-Tfamm Xfer(QC): 6 Car Transfer (QC): 6 Does the Patient Walk: Yes Gait (FIM): 6 Gait distance (FIM): 3=150 ft Walk 10 feet (QC): 6 Walk 10ft-Uneven Surface(QC): 6 Walk 50ft with 2 Turns (QC): 6 Walk 150 ft (QC): 6 Gait Assistive Device: FWW Does the Pt use WC or Scooter?: No Stairs (FIM): 5 # of Steps: 4 1 Step (curb) (QC): 6 4 Steps (QC): 6 12 Steps (QC): 9 Picking up an Object (QC): 88 PT Plan Problem List Problem List: Activity Tolerance, Functional Strength, Safety, Balance, Gait, Transfer, Bed Mobility, ROM Treatment/Plan Treatment Plan: Continue Plan of Care Treatment Plan: Bed Mobility, Education, Functional Activity [place]et, Functional Strength, Group Therapy, Gait, Safety, Therapeutic Exercise, Transfers Treatment Duration: Dec 06, 2018 Frequency: At least 5 of 7 days/Wk (IRF) Estimated Hrs Per Day: 1.5 hours per day Patient and/or Family Agrees t: Yes Safety Risks/Education Patient Education: Gait Training, Transfer Techniques, Correct Positioning, Safety Issues Teaching Recipient: Patient Teaching Methods: Demonstration, Discussion Response to Teaching: Reinforcement Needed Time/GCodes Time In: 0800 Time Out: 0845 Total Billed Treatment Time: 45 Total Billed Treatment 1 visit GT 15' EX 30' LEANNE BERRY PT Nov 25, 2018 08:40
--- NOTE | 2018-11-25 09:00 | NUR ---
REFRESH DROPS HELD. PATIENT PUT OWN IN.
[2018-11-25] MEDS: ALLOPURINOL 300 MG (ZYLOPRIM) TAB PO SCH (09:11)
[2018-11-25] MEDS: CARVEDILOL 6.25 MG (COREG) TAB PO SCH ×2 (09:11→21:08)
[2018-11-25] MEDS: predniSONE 5 MG TAB PO SCH (09:12)
[2018-11-25] MEDS: ZINC SULFATE 220 MG CAPSULE PO SCH (09:12)
[2018-11-25] MEDS: APIXABAN 2.5 MG (ELIQUIS) TABLET PO SCH ×2 (09:12→21:07)
[2018-11-25] MEDS: OMEGA 3 (FISH OIL) 1000 MG CAP PO SCH (09:12)
[2018-11-25] MEDS: SENNA W/DOCUSATE (SENOKOT S) TABLET PO SCH ×2 (09:13→21:08)
[2018-11-25] MEDS: ARTIFICAL TEARS 0.4 ML UNIT DOSE (REFRESH PLUS) OU SCH ×2 (09:14→21:07)
[2018-11-25] MEDS: RT-ADVAIR HFA 45/21 MCG PER PUFF IH SCH ×2 (09:14→18:36)
--- NOTE | 2018-11-25 10:30 | Occupational Ther Daily Note ---
OT Current Status-Daily Note Subjective Pt laying in bed at start of session, agreeable to OT tx focusing on sponge bath today secondary to pt saying he took a shower yesterday. Pain Numeric Pain Scale: 1 Location: Right Location Body Site: Hip Mental Status/Objective Patient Orientation: Normal For Age Therapy Code Descriptions/Definitions Functional [place] Measure: 0=Not Assessed/NA 4=Minimal Assistance 1=Total Assistance 5=Supervision or Setup 2=Maximal Assistance 6=Modified [place] 3=Moderate Assistance 7=Complete [place] ADL-Treatment Therapy Code Descriptions/Definitions Functional [place] Measure: 0=Not Assessed/NA 4=Minimal Assistance 1=Total Assistance 5=Supervision or Setup 2=Maximal Assistance 6=Modified [place] 3=Moderate Assistance 7=Complete [place] Therapy Quality Codes: 6 Independent with activity with or without an assistive device 5 Patient requires set up or clean up by helper. Patient completes activity by themselves 4 Supervision or touching assist (CGA). [place] provide cues , steadying assist 3 The helper provides less than half the effort to complete the activity 2 The helper provides more than half the effort to complete the activity 1 Dependent. The helper does all the effort to complete an activity 7 Patient refused to complete or attempt activity 9 The patient did not perform the activity before the current illness or injury 88 Not attempted due to Medical conditions or safety concerns Grooming (FIM): 5 (SBA standing at sink with FWW. Pt brushed hair and teeth, washed face and hands.) Oral Hygiene (QC): 4 Bathing (FIM): 4 (SPONGE BATH: CGA during standing for washing buttocks/periarea at grab bars. Pt required assistance lifting RLE while he washed using long handled sponge. Pt educated on using long handled sponge for BLEs, pt demo'd understanding. Pt completed 11/26 parts.) Bathing Location: L Arm, R Arm, L Upper Leg, R Upper Leg, L Lower Leg (in cluding foot), Chest, Abdomen, Buttocks, Perineal Area Shower/Bathe Self (QC): 3 Upper Body (FIM): 5 (Set up assist) Upper Body Dressing (QC): 5 Lower Body Dressing (FIM): 3 (4/8 pants, underwear, socks. OT educated pt on dressing stick and sock aid, pt required assistance threading RLE into und erwear/pants/socks and threading LLE into pants using AE. Mod verbal cues required for AE.) Lower Body Dressing (QC): 2 On/Off Footwear (QC): 3 Toileting (FIM): 5 (SBA, pt completed /3) Toileting Hygiene (QC): 4 Transfers (B, C, W/C) (FIM): 4 (Min A supine to/from sit, pt required assistance with RLE. ) Toilet/Commode Transfer (FIM): 5 (SBA for safety/balance) Toilet Transfer (QC): 4 Shower Transfer(FIM): 4 (CGA in/out of shower using grab bars.) Other Treatment Pt laying in bed at start of session, performed functional mobility with FWW and SBA to bathroom where pt completed toileting/sponge bath/dressing/grooming. OT educated pt on AE including dressing stick and sock aid. Pt required mod verbal cues during lower body dressing. Pt performed functional mobility to bed using FWW with CGA. Post OT session, pt laying in bed, call light and phone in reach and all needs met. Education OT Patient Education: Correct positioning, Energy conservation, Modified ADL techniques, Progress toward Goal/Update tx plan, Purpose of tx/functional activities, Transfer techniques, Use of adapted equipment (master black belt, sock aid) Teaching Recipient: Patient Teaching Methods: Demonstration Response to Teaching: Verbalize Understanding, Reinforcement Needed OT Short Term Goals Short Term Goals Time Frame: Dec 04, 2018 Grooming(FIM): 5 Bathing(FIM): 4 Bathing Location: L Arm, R Arm, L Upper Leg, R Upper Leg, Chest, Abdomen, Buttocks, Perineal Area Upper Body Dressing(FIM): 5 Lower Body Dressing(FIM): 5 Toileting(FIM): 5 Transfers (B,C,W/C) (FIM): 5 Toilet/Commode Transfer(FIM): 5 Shower Transfer(FIM): 4 1=Demonstrate adherence to instructed precautions during ADL tasks. 2=Patient will verbalize/demonstrate understanding of assistive devices/modifications for ADL. 3=Patient will improve strength/tolerance for activity to enable patient to perform ADL's. OT Intermediate Goals [place] Goals Time Frame: Dec 13, 2018 Eating (FIM): 7 Eating (QC): 6 Groomin Oral Hygiene (QC): 6 Bathing(FIM): 5 Bathing Location: L Arm, R Arm, L Upper Leg, R Upper Leg, L Lower Leg (including foot), R Lower Leg (including foot), Chest, Abdomen, Buttocks, Perineal Area Shower/Bathe Self (QC): 5 Upper Body Dressing(FIM): 6 Upper Body Dressing (QC): 6 Lower Body Dressing(FIM): 6 Lower Body Dressing (QC): 6 On/Off Footwear (QC): 6 Toileting(FIM): 6 Toileting Hygiene (QC): 6 Transfers (B,C,W/C) (FIM): 6 Toilet/Commode Transfer(FIM): 6 Toilet/Commode Transfer (QC): 6 Shower Transfer(FIM): 5 Additional Goals: 1-Demonstrate ADL Tasks, 2-Verbalize Understanding, 3- ImproveStrength/[place] 1=Demonstrate adherence to instructed precautions during ADL tasks. 2=Patient will verbalize/demonstrate understanding of assistive devices/modifications for ADL. 3=Patient will improve strength/tolerance for activity to enable patient to perform ADL's. OT Education/Plan Problem List/Assessment Assessment: Decreased Activ Tolerance, Decreased UE Strength, Impaired Funct Balance, Impaired Self-Care Skills Pt would benefit from skilled OT services in order to increase independence in ADLs and functional mobility in order for pt to safely return home. Discharge Recommendations Plan/Recommendations: Continue POC Equpiment Recommendations-D/C: Hip Kit Treatment Plan/Plan of Care Treatment,Training & Education: Yes Patient would benefit from OT for education, treatment and training to promote independence in ADL's, mobility, safety and/or upper extremity function for ADL's. Plan of Care: ADL Retraining, Caregiver Training, Functional Mobility, Group Exercise/Act as Ind, UE Funct Exercise/Act Treatment Duration: Dec 13, 2018 Frequency: At least 5 of 7 days/Wk (IRF) Estimated Hrs Per Day: 1.5 hours per day Agreement: Yes Rehab Potential: Good Time/GCodes Start Time: 09:30 Stop Time: 10:15 Total Time Billed (hr/min): 45 Billed Treatment Time 1, ADL 3 [id number] JERMAN MTZ OT Nov 25, 2018 10:30
--- NOTE | 2018-11-25 10:45 | NUR ---
DR. MCDANIEL NOTIFIED PER HIS REQUEST OF BLADDER SCAN RESULT OF 117 CC AFTER POST-VOIDING. CECILIO MCGRAW.
[2018-11-25] MEDS: VITAMIN D3 1,000 UNITS (CHOLECALCIFEROL) TABLET PO SCH (10:47)
--- NOTE | 2018-11-25 11:00 | NUR ---
STATES MORE PAIN THAN USUAL IN RIGHT HIP AFTER WORKING WITH O.T. AND MEDICATED WITH OXYCODONE.
--- NOTE | 2018-11-25 11:27 | Cardiology Progress Note ---
Cardiology SOAP Progress Note Subjective: no cardiac symptoms. Objective: I&O/Vital Signs 11/25/18 11/25/18 06:07 09:14 Temp 37.88778 Pulse 75 Resp 20 B/P (MAP) 101/57 (72) Pulse Ox 97 96 O2 Delivery Room Air Room Air 11/25/18 00:00 Intake Total 1500 ml Balance 1500 ml Weight (Pounds): 172 Weight (Ounces): 2.0 Weight (Calculated Kilograms): 78.703213 Constitutional: appears stated age, AAO x 3; No apparent distress; well- developed, well-nourished Respiratory: No accessory muscle use, No respiratory distress, No chest tender, No chest expansion is symmetric; chest is bilaterally symmetric; No lungs clear to percussion; lungs clear to auscultation; No crackles, No rhonchi, No rales, N o stridor, No wheezing, No pleural rub, No other Cardiovascular: regular rate-rhythm, S1 and S2, systolic murmur Gastrointestional: No tender; soft; No round, No distended, No pulsatile mass, No organomegaly, No guarding, No rebound, No tenderness, No hernia, No mass; audible bowel sounds; No abnormal bowel sounds, No abdominal bruits, No spleenomegaly, No other Extremities: normal inspection; No clubbing, No cyanosis; no lower extremity edema bilateral; No significant edema Neurologic/Psychiatric: no motor/sensory deficits, alert, normal mood/affect, oriented x 3, power is 5/5 both on sides Skin: normal color; No rash, No ulcerations Results/Procedures: Labs Laboratory Tests 11/25/18 05:35: White Blood Count 10.1, Red Blood Count 2.75L, Hemoglobin 9.2L, Hematocrit 28L, Mean Corpuscular Volume 103H, Mean Corpuscular Hemoglobin 34, Mean Corpuscular Hemoglobin Concent 33, Red Cell Distribution Width 15.6H, Platelet Count 215, Mean Platelet Volume 10.6H, Neutrophils (%) (Auto) 57, Lymphocytes (%) (Auto) 27, Monocytes (%) (Auto) 13H, Eosinophils (%) (Auto) 3, Basophils (%) (Auto) 0, Neutrophils # (Auto) 5.8, Lymphocytes # (Auto) 2.7, Monocytes # (Auto) 1.3H, Eosinophils # (Auto) 0.3, Basophils # (Auto) 0.0, Sodium Level 136, Potassium Level 4.1, Chloride Level 100, Carbon Dioxide Level 24, Anion Gap 12, Blood Urea Nitrogen 25H, Creatinine 1.38H, Estimat Glomerular Filtration Rate 49, BUN/Creatinine Ratio 18, Glucose Level 109H, Calcium Level 9.2, Corrected Calcium 9.8, Total Bilirubin 0.9, Aspartate Amino Transf (AST/SGOT) 20, Alanine Aminotransferase (ALT/SGPT) 11, Alkaline Phosphatase 82, Total Protein 6.2L, Albumin 3.2 A/P: Assessment/Dx: Hip fracture, hip surgery, paroxysmal Atrial fibrillation, COPD, obstructive sleep apnea, Hypertension, Hyperlipidemia, Systolic murmur Plan: Continue inpatient rehabilitation for hip fracture, hip surgery, paroxysmal Atrial fibrillation, request EKG. Continue apixaban and carvedilol. EKG yesterday 11/24/2018 shows sinus rhythm with left anterior fascicular block, right bundle branch block. Hypertension, continue carvedilol. Hyperlipidemia, continue statin therapy. Systolic murmur, likely aortic stenosis. Recommend an echocardiogram. COPD, stable. Obstructive sleep apnea, follow clinically. Thank you for your consultation. Please call me if you have any questions. Andrea Griffiths MD, FACP, FACC, FSCAI, FHRS, CCDS Interventional Cardiology Cardiac Electrophysiology Vascular Medicine and Endovascular Interventions José GRIFFITHS MD Nov 25, 2018 11:27
--- NOTE | 2018-11-25 13:46 | Occupational Ther Daily Note ---
OT Current Status-Daily Note Subjective Pt laying in bed at start of session, agreed to OT tx. Pt stated he needed to use the restroom before going to therapy gym. Pain Numeric Pain Scale: 0-No Pain Mental Status/Objective Patient Orientation: Normal For Age Therapy Code Descriptions/Definitions Functional [place] Measure: 0=Not Assessed/NA 4=Minimal Assistance 1=Total Assistance 5=Supervision or Setup 2=Maximal Assistance 6=Modified [place] 3=Moderate Assistance 7=Complete [place] ADL-Treatment Therapy Code Descriptions/Definitions Functional [place] Measure: 0=Not Assessed/NA 4=Minimal Assistance 1=Total Assistance 5=Supervision or Setup 2=Maximal Assistance 6=Modified [place] 3=Moderate Assistance 7=Complete [place] Therapy Quality Codes: 6 Independent with activity with or without an assistive device 5 Patient requires set up or clean up by helper. Patient completes activity by themselves 4 Supervision or touching assist (CGA). [place] provide cues , steadying assist 3 The helper provides less than half the effort to complete the activity 2 The helper provides more than half the effort to complete the activity 1 Dependent. The helper does all the effort to complete an activity 7 Patient refused to complete or attempt activity 9 The patient did not perform the activity before the current illness or injury 88 Not attempted due to Medical conditions or safety concerns Toileting (FIM): 5 (pt completed 3/, SBA for safety) Toileting Hygiene (QC): 4 Transfers (B, C, W/C) (FIM): 4 (Min A supine to sit, pt required assistance with RLE. SBA sit to/from stand from chair.) Toilet/Commode Transfer (FIM): 5 (SBA for safety/balance) Toilet Transfer (QC): 4 Other Treatment Pt completed toileting in room, then performed functional mobility using FWW and SBA to therapy gym. In order to increase activity tolerance, and UE strength/endurance to increase independence in functional activities and ADLs, pt performed x15 mins arm bike, mod resistance, with rest breaks as needed. Pt then performed functional mobility back to his room. Post OT session, pt seated upright in recliner, call light and phone in reach and all needs met. Education OT Patient Education: Energy conservation, Exercise program, Progress toward Goal/Update tx plan, Purpose of tx/functional activities, Transfer techniques Teaching Recipient: Patient Teaching Methods: Demonstration Response to Teaching: Verbalize Understanding OT Short Term Goals Short Term Goals Time Frame: Dec 04, 2018 Grooming(FIM): 5 Bathing(FIM): 4 Bathing Location: L Arm, R Arm, L Upper Leg, R Upper Leg, Chest, Abdomen, Buttocks, Perineal Area Upper Body Dressing(FIM): 5 Lower Body Dressing(FIM): 5 Toileting(FIM): 5 Transfers (B,C,W/C) (FIM): 5 Toilet/Commode Transfer(FIM): 5 Shower Transfer(FIM): 4 1=Demonstrate adherence to instructed precautions during ADL tasks. 2=Patient will verbalize/demonstrate understanding of assistive devices/modifications for ADL. 3=Patient will improve strength/tolerance for activity to enable patient to perform ADL's. OT Usp Goals Usp Goals Time Frame: Dec 13, 2018 Eating (FIM): 7 Eating (QC): 6 Groomin Oral Hygiene (QC): 6 Bathing(FIM): 5 Bathing Location: L Arm, R Arm, L Upper Leg, R Upper Leg, L Lower Leg (including foot), R Lower Leg (including foot), Chest, Abdomen, Buttocks, Per ineal Area Shower/Bathe Self (QC): 5 Upper Body Dressing(FIM): 6 Upper Body Dressing (QC): 6 Lower Body Dressing(FIM): 6 Lower Body Dressing (QC): 6 On/Off Footwear (QC): 6 Toileting(FIM): 6 Toileting Hygiene (QC): 6 Transfers (B,C,W/C) (FIM): 6 Toilet/Commode Transfer(FIM): 6 Toilet/Commode Transfer (QC): 6 Shower Transfer(FIM): 5 Additional Goals: 1-Demonstrate ADL Tasks, 2-Verbalize Understanding, 3- ImproveStrength/[place] 1=Demonstrate adherence to instructed precautions during ADL tasks. 2=Patient will verbalize/demonstrate understanding of assistive devices/modifications for ADL. 3=Patient will improve strength/tolerance for activity to enable patient to perform ADL's. OT Education/Plan Problem List/Assessment Assessment: Decreased Activ Tolerance, Decreased UE Strength, Impaired Funct Balance, Impaired Self-Care Skills Pt would benefit from skilled OT services in order to increase independence in ADLs and functional mobility in order for pt to safely return home. Discharge Recommendations Plan/Recommendations: Continue POC Treatment Plan/Plan of Care Treatment,Training & Education: Yes Patient would benefit from OT for education, treatment and training to promote independence in ADL's, mobility, safety and/or upper extremity function for A DL's. Plan of Care: ADL Retraining, Caregiver Training, Functional Mobility, Group Exercise/Act as Ind, UE Funct Exercise/Act Treatment Duration: Dec 13, 2018 Frequency: At least 5 of 7 days/Wk (IRF) Estimated Hrs Per Day: 1.5 hours per day Agreement: Yes Rehab Potential: Good Time/GCodes Start Time: 13:00 Stop Time: 13:30 Total Time Billed (hr/min): 30 Billed Treatment Time 1, ADL [id number], EX [id number] JERMAN MTZ OT Nov 25, 2018 13:46
--- NOTE | 2018-11-25 14:02 | Speech Therapy Daily Note ---
Speech Daily Progress Note Subjective Date Seen by Provider: Nov 25, 2018 Time Seen by Provider: 00:30 Patient laying in his bed, stated after his bath with OT his hip was really hurting. He was given a pain pill shortly after I arrived. Objective The patient completed a series of memory questions of general information with 80% accuracy given min to mod verbal cues. Assessment Assessment Current Status: Good Progress Treatment Plan Continue Plan of Care Communication Comprehension: 6 Expression: 6 Social Cognition Social Interaction: 7 Problem Solvin Memory: 4 Speech Short Term Goals Short Term Goals Short Term Goals 1) The patient will complete memory tasks with 90% or greater accuracy given minimal cues. 2) The patient will complete problem solving tasks with 90% or greater accuracy given minimal cues. 3) The patient will complete safety awareness tasks with 90% or greater accuracy given minimal cues. Speech Alf Goals Alf Goals The patient will improve his cognitive level of function so that he may return home safely. Speech-Plan Patient/Family Goals Patient/Family Goals: The patient plans on returning home where he lives with his post rehab. Treatment Plan Speech Therapy Treatment Plan: Continue Plan of Care The patient has progressed since his SLUMS was given. Treatment Duration: Dec 04, 2018 Frequency: 5 times per week Estimated Hrs Per Day: .5 hour per day Rehab Potential: Good Barriers to Learning: The patient has cognitive deficits Pt/Family Agrees to Plan: Yes Safety Risks/Education Teaching Recipient: Patient Teaching Methods: Discussion Response to Teaching: Verbalize Understanding Education Topics Provided: Safety within his room and utilization of his call light as needed. Time Speech Therapy Time In: 10:30 Speech Therapy Time Out: 11:00 Total Billed Time: 30 Billed Treatment Time 1[address] Nov 25, 2018 14:02
--- NOTE | 2018-11-25 14:47 | Physical Therapy Daily Note ---
PT Daily Note-Current Subjective Agreeable to PT. Mental Status Patient Orientation: Person, Place, Time, Situation Transfers Therapy Code Descriptions/Definitions Functional [place] Measure: 0=Not Assessed/NA 4=Minimal Assistance 1=Total Assistance 5=Supervision or Setup 2=Maximal Assistance 6=Modified [place] 3=Moderate Assistance 7=Complete [place] Therapy Quality Codes: 6 Independent with activity with or without an assistive device 5 Patient requires set up or clean up by helper. Patient completes activity by themselves 4 Supervision or touching assist (CGA). [place] provide cues , steadying assist 3 The helper provides less than half the effort to complete the activity 2 The helper provides more than half the effort to complete the activity 1 Dependent. The helper does all the effort to complete an activity 7 Patient refused to complete or attempt activity 9 The patient did not perform the activity before the current illness or injury 88 Not attempted due to Medical conditions or safety concerns Transfers (B, C, W/C) (FIM): 4 Sit to Lying (QC): 4 (assist with right LE and cues for sequencing. ) Sit to Stand (QC): 4 (SB-CGA for safety) Weight Bearing Right Lower Extremity: Right Weight Bearing/Tolerated Left Lower Extremity: Left Full Weight Bearing Gait Training Does the Patient Walk?: Yes Gait (FIM): 4 Distance (FIM): 3=150 ft Distance: 150 ft x 3 Gait Assistive Device: FWW antalgic gait with decreased speed this date. Stair Training Stair Training: Handrails/: 2 handrails Stairs (FIM): 2 Stairs: Pattern: Step to up/down 4 steps with CGA with cues for correct sequencing. Exercises Seated Therapy Exercises: Ankle pumps, Sit to stand, Long arc quads, Hamstring Curls, Hip abd/add Seated Reps: 12 (LE strength for improved gait and transfers. ) Treatments pt in bed post treatment with needs met. Assessment Current Status: Good Progress Functional gains noted. PT Short Term Goals Short Term Goals Time Frame: Nov 29, 2018 Transfers (B,C,W/C) (FIM): 5 Gait (FIM): 4 (met) Distance (FIM): 3=150 ft Gait Assistive Device: FWW PT Tumbler Machine Operator Helper Goals Intermediate Goals PT Intermediate Goals Time Frame: Dec 06, 2018 Transfers (B,C,W/C) (FIM): 7 Sit to Lying (QC): 6 Lying-Sitting on Side/Bed(QC): 6 Sit to Stand (QC): 6 Rollin Roll Left to Right (QC): 6 Chair/Fcu-jj-Rusor Xfer(QC): 6 Car Transfer (QC): 6 Does the Patient Walk: Yes Gait (FIM): 6 Gait distance (FIM): 3=150 ft Walk 10 feet (QC): 6 Walk 10ft-Uneven Surface(QC): 6 Walk 50ft with 2 Turns (QC): 6 Walk 150 ft (QC): 6 Gait Assistive Device: FWW Does the Pt use WC or Scooter?: No Stairs (FIM): 5 # of Steps: 4 1 Step (curb) (QC): 6 4 Steps (QC): 6 12 Steps (QC): 9 Picking up an Object (QC): 88 PT Plan Problem List Problem List: Activity Tolerance, Functional Strength, Safety, Balance, Gait, Transfer, Bed Mobility Treatment/Plan Treatment Plan: Continue Plan of Care Treatment Plan: Bed Mobility, Education, Functional Activity [place], Functional Strength, Group Therapy, Gait, Safety, Therapeutic Exercise, Transfers Treatment Duration: Dec 06, 2018 Frequency: At least 5 of 7 days/Wk (IRF) Estimated Hrs Per Day: 1.5 hours per day Patient and/or Family Agrees t: Yes Safety Risks/Education Patient Education: Transfer Techniques, Safety Issues Teaching Recipient: Patient Teaching Methods: Discussion Response to Teaching: Reinforcement Needed Discharge Recommendations Therapy Discharge Recommendati: Post Acute PT Time/GCodes Time In: 1400 Time Out: 1430 Total Billed Treatment Time: 30 Total Billed Treatment visit EX 15 GT 15 ROSANNE HOPKINS PT Nov 25, 2018 14:46
[2018-11-25 16:29] VITALS: BP 133/65
[2018-11-25] MEDS: FUROSEMIDE 20 MG (LASIX) TAB PO SCH (17:24)
--- NOTE | 2018-11-25 20:09 | PM&R Progress Note ---
Subjective HPI/CC On Admission Date Seen by Provider: Nov 25, 2018 Time Seen by Provider: 09:00 CC: Debility following right hip replacement uncomplicated by Dr Nickerson POD # 3 HPI: This is an 83yoWM clinic pt of Dr. Ramirez in [place] who presented to the inpatient rehab following an uncomplicated right total hip replacement after her failed conservative treatment. He has a history of AF and sees Dr. Vera cardiology for that but has had significant weakness prior to sx and subsequent to surgery so he was found to meet criteria for inpatient rehab and has some significant problems with urinary retention maintained on Marley catheter since unable to urinate the night of surgery. At this current time pt remains stable, hgb slightly low at 8.8 his AF has done well after an atrial fibrillation episode in the OR but remains in normal sinus rhythm now. He has had 3 bowel movements this morning before [facility] [place]. He will return home at [place]. His prior level of functioning was use of assistive devices and fairly ind ependent with ADLs. He has been for 49 years. Subjective/Events-last exam Creatinine 1.38 Hgb 9.2 Refusing Urecholine since he thinks he is urinating too much Dr. Arroyo did check in and will change the Urecholine to prn 96 % on room air but he reports chronic dyspnea which is a chronic issue Taking no laxatives and bowels are moving well Hip incision is burning slightly Slums score was 20/30 Pain is well controlled Overall feels much better Conferred with RN Reviewed therapy notes Check meds and labs Review of Systems General: Fatigue Genitourinary: Retention Musculoskeletal: leg pain Objective Exam Vital Signs Vital Signs Date Time Temp Pulse Resp B/P (MAP) Pulse Ox O2 Delivery O2 Flow Rate FiO2 11/25/18 18:36 95 Room Air 11/25/18 16:29 36.6 71 16 133/65 Capillary Refill : Less Than 3 Seconds General Appearance: No Apparent Distress, WD/WN, Chronically ill HEENT: PERRL/EOMI, Normal ENT Inspection, Pharynx Normal, Moist Mucous Membranes Neck: Full Range of Motion, Normal Inspection, Non Tender, Supple Respiratory: Chest Non Tender, Lungs Clear, Normal Breath Sounds, No Accessory Muscle Use, No Respiratory Distress Cardiovascular: Regular Rate, Rhythm, No Edema, No Gallop, No JVD, Systolic Murmur Gastrointestinal: Normal Bowel Sounds, No Organomegaly, No Pulsatile Mass, Non Tender, Soft Back: Normal Inspection, No CVA Tenderness, No Vertebral Tenderness Extremity: Normal Capillary Refill, Normal Inspection, Normal Range of Motion (except right leg), Non Tender, No Calf Tenderness, No Pedal Edema Neurologic/Psychiatric: Alert, Oriented x3, No Motor/Sensory Deficits, Normal Mood/Affect Skin: Normal Color, Warm/Dry Lymphatic: No Adenopathy Results/Procedures Lab Laboratory Tests 11/25/18 05:35 Patient resulted labs reviewed. FIM Transfers Therapy Code Descriptions/Definitions Functional [place] Measure: 0=Not Assessed/NA 4=Minimal Assistance 1=Total Assistance 5=Supervision or Setup 2=Maximal Assistance 6=Modified [place] 3=Moderate Assistance 7=Complete [place] Therapy Quality Codes: 6 Independent with activity with or without an assistive device 5 Patient requires set up or clean up by helper. Patient completes activity by themselves 4 Supervision or touching assist (CGA). [place] provide cues , steadying assist 3 The helper provides less than half the effort to complete the activity 2 The helper provides more than half the effort to complete the activity 1 Dependent. The helper does all the effort to complete an activity 7 Patient refused to complete or attempt activity 9 The patient did not perform the activity before the current illness or injury 88 Not attempted due to Medical conditions or safety concerns Transfers (B, C, W/C) (FIM): 4 Scootin Rollin Roll Left to Right (QC): 3 Supine to/from Sit: 4 Sit to/from Stand: 5 Sit to Lying (QC): 4 (assist with right LE and cues for sequencing. ) Sit to Stand (QC): 4 (SB-CGA for safety) Chair/Jld-rf-Monrs Xfer(QC): 4 Bed to/from Chair: 5 Car Transfer (QC): 4 Gait Training Does the Patient Walk?: Yes Gait (FIM): 4 Distance (FIM): 3=150 ft Distance: 150 ft x 3 Walk 10 feet (QC): 4 Walk 50 ft with 2 Turns(QC): 4 Walk 150 ft (QC): 88 Walking 10ft/uneven surface-QC: 4 Gait Level of Assist: 5 Gait Persons Needed: 1 Gait Assistive Device: FWW Wheelchair Training Does the Pt Use a Wheelchair?: No Stair Training Stair Training: Handrails/: 2 handrails Stairs (FIM): 2 #of Steps: 1 1 Step (curb) (QC): 3 4 Steps (QC): 88 12 Steps (QC): 88 Stairs: Pattern: Step to Level of Assist: 4 Balance Picking up an Object (QC): 88 (contraindicated) Mental Status/Objective Comprehension: 6 Expression: 6 Social Interaction: 7 Problem Solvin Memory: 4 ADL-Treatment Feedin (Pt able to open all containers and bring food to mouth.) Eating (QC): 6 Groomin (SBA standing at sink with FWW. Pt brushed hair and teeth, washed face and hands.) Oral Hygiene (QC): 4 Bathin (SPONGE BATH: CGA during standing for washing buttocks/periarea at grab bars. Pt required assistance lifting RLE while he washed using long handled sponge. Pt educated on using long handled sponge for BLEs, pt demo'd understanding. Pt completed 11/26 parts.) Bathing Location: L Arm, R Arm, L Upper Leg, R Upper Leg, L Lower Leg (including foot), Chest, Abdomen, Buttocks, Perineal Area Shower/Bathe Self (QC): 3 Upper Extremity Dressin (Set up assist) Upper Body Dressing (QC): 5 Lower Extremity Dressin (4/8 pants, underwear, socks. OT educated pt on dressing stick and sock aid, pt required assistance threading RLE into underwear/pants/socks and threading LLE into pants using AE. Mod verbal cues required for AE.) Lower Body Dressing (QC): 2 On/Off Footwear (QC): 3 Toiletin (pt completed /, SBA for safety) Toileting Hygiene (QC): 4 Toilet/Commode Transfer: 5 (SBA for safety/balance) Toilet Transfer (QC): 4 Shower: 4 (CGA in/out of shower using grab bars.) Assessment/Plan Assessment and Plan Assess & Plan/Chief Complaint Assessment: Right hip replacement POD # 6 Urinary retention now resolved and voiding well thanks to Dr Arroyo CRI stable at 1.38 HTN AF Murmur of type ECHO pending Post op anemia no indication for transfusions GERD Gout Plan: Dr Arroyo and Dr Griffiths appreciated Monitor hgb and creat Eliquis IRF protocol Urination monitored and improved (1) Status post right hip replacement Status: Acute (2) Atrial fibrillation Status: Chronic Qualifiers: Atrial fibrillation type: paroxysmal Qualified Codes: I48.0 - Paroxysmal atrial fibrillation (3) Urinary retention Status: Acute (4) Gout Status: Chronic Qualifiers: Gout site: unspecified site Gout etiology: unspecified cause Chronicity: unspecified Qualified Codes: M10.9 - Gout, unspecified (5) CAD (coronary artery disease) Status: Chronic Qualifiers: Coronary Disease-Associated Artery/Lesion type: [place] artery [place] vs. transplanted heart: [place] heart Associated angina: without angina Qualified Codes: I25.10 - Atherosclerotic heart disease of [place] coronary artery without angina pectoris (6) Hyperlipemia Status: Chronic Qualifiers: Hyperlipidemia type: mixed hyperlipidemia Qualified Codes: E78.2 - Mixed hyperlipidemia (7) Murmur Status: Chronic (8) Osteoarthritis Status: Chronic Qualifiers: Osteoarthritis location: unspecified site Osteoarthritis type: unspecified Qualified Codes: M19.90 - Unspecified osteoarthritis, unspecified site (9) GERD (gastroesophageal reflux disease) Status: Chronic Qualifiers: Esophagitis presence: without esophagitis Qualified Codes: K21.9 - Gastro- esophageal reflux disease without esophagitis (10) Hypertension Status: Chronic Qualifiers: Hypertension type: essential hypertension Qualified Codes: I10 - Essential (primary) hypertension (11) Valvular heart disease Status: Chronic (12) Postoperative anemia Status: Acute (13) Marley catheter in place Status: Acute (14) Advanced age Status: Chronic SHAWNA ADEN DO Nov 25, 2018 20:09
[2018-11-25] MEDS: TAMSULOSIN 0.4 MG (FLOMAX) CAP PO SCH (21:07)
[2018-11-25] MEDS: ACETAMINOPHEN 500 MG TAB (TYLENOL) PO SCH (21:08)
[2018-11-26 06:03] VITALS: BP 126/66
[2018-11-26] MEDS: IRON POLYSAC 150 MG CAP (NIFEREX) PO SCH ×2 (06:37→17:42)
[2018-11-26] MEDS: PANTOPRAZOLE 40 MG (PROTONIX) TAB PO SCH (06:37)
[2018-11-26] MEDS: MULTIVIT W/MINERALS TAB (THERAGRAN M) PO SCH (06:37)
[2018-11-26] MEDS: RT-ADVAIR HFA 45/21 MCG PER PUFF IH SCH ×2 (07:26→21:27)
--- NOTE | 2018-11-26 09:30 | Cardiology Progress Note ---
Cardiology SOAP Progress Note Subjective: No cardiac complaints. Objective: I&O/Vital Signs 11/26/18 11/26/18 06:03 07:26 Temp 37.1 Pulse 61 Resp 18 B/P (MAP) 126/66 Pulse Ox 97 94 O2 Delivery Room Air Room Air 11/26/18 00:00 Intake Total 840 ml Balance 840 ml Weight (Pounds): 168 Weight (Ounces): 11.2 Weight (Calculated Kilograms): [id number] Constitutional: appears stated age, AAO x 3; No apparent distress; well- developed, well-nourished Respiratory: No accessory muscle use, No respiratory distress, No chest tender, No chest expansion is symmetric; chest is bilaterally symmetric; No lungs clear to percussion; lungs clear to auscultation; No crackles, No rhonchi, No rales, No stridor, No wheezing, No pleural rub, No other Cardiovascular: regular rate-rhythm, S1 and S2, systolic murmur Gastrointestional: No tender; soft; No round, No distended, No pulsatile mass, No organomegaly, No guarding, No rebound, No tenderness, No hernia, No mass; audible bowel sounds; No abnormal bowel sounds, No abdominal bruits, No sple enomegaly, No other Extremities: normal inspection; No clubbing, No cyanosis; no lower extremity edema bilateral; No significant edema Neurologic/Psychiatric: no motor/sensory deficits, alert, normal mood/affect, oriented x 3, power is 5/5 both on sides Skin: normal color; No rash, No ulcerations A/P: Assessment/Dx: Hip fracture, hip surgery, paroxysmal Atrial fibrillation, COPD, obstructive sleep apnea, Hypertension, Hyperlipidemia, Systolic murmur Plan: Continue inpatient rehabilitation for hip fracture, hip surgery, paroxysmal Atrial fibrillation, Continue apixaban and carvedilol. EKG yesterday 11/24/2018 shows sinus rhythm with left anterior fascicular block, right bundle branch block. Hypertension, continue carvedilol. Hyperlipidemia, continue statin therapy. Mild aortic stenosis. Follow clinically. COPD, stable. Obstructive sleep apnea, follow clinically. Thank you for your consultation. Please call me if you have any questions. Andrea Griffiths MD, FACP, FACC, FSCAI, FHRS, CCDS Interventional Cardiology Cardiac Electrophysiology Vascular Medicine and Endovascular Interventions José GRIFFITHS MD Nov 26, 2018 09:30
--- NOTE | 2018-11-26 09:37 | PM&R Progress Note ---
Subjective HPI/CC On Admission Date Seen by Provider: Nov 26, 2018 Time Seen by Provider: 09:00 CC: Debility following right hip replacement uncomplicated by Dr Nickerson POD # 3 HPI: This is an 83yoWM clinic pt of Dr. Ramirez in [place] who presented to the inpatient rehab following an uncomplicated right total hip replacement after her failed conservative treatment. He has a history of AF and sees Dr. Vera cardiology for that but has had significant weakness prior to sx and subsequent to surgery so he was found to meet criteria for inpatient rehab and has some sig nificant problems with urinary retention maintained on Marley catheter since unable to urinate the night of surgery. At this current time pt remains stable, hgb slightly low at 8.8 his AF has done well after an atrial fibrillation episode in the OR but remains in normal sinus rhythm now. He has had 3 bowel movements this morning before leaving [facility] in [place]. He will return home at [place]. His prior level of functioning was use of assistive devices and fairly independent with ADLs. He has been for 49 years. Subjective/Events-last exam Doing very well. Pain is at a 2. BM today. Improved thought process. Dr. Arroyo discontinued the Urecholine. Post-void residual was minimal enough that he does not require the Urecholine that the Pt does not like. Overall pain is controlled on pain medication. Slums score was 20/30 Pain is well controlled Overall feels much better Conferred with RN Reviewed therapy notes Check meds and labs Review of Systems General: Fatigue Musculoskeletal: leg pain Objective Exam Vital Signs Vital Signs Date Time Temp Pulse Resp B/P (MAP) Pulse Ox O2 Delivery O2 Flow Rate FiO2 11/26/18 18:00 37.4 74 18 116/72 98 Room Air Capillary Refill : Less Than 3 Seconds General Appearance: No Apparent Distress, WD/WN, Chronically ill HEENT: PERRL/EOMI, Normal ENT Inspection, Pharynx Normal, Moist Mucous Membranes Neck: Full Range of Motion, Normal Inspection, Non Tender, Supple Respiratory: Chest Non Tender, Lungs Clear, Normal Breath Sounds, No Accessory Muscle Use, No Respiratory Distress Cardiovascular: Regular Rate, Rhythm, No Edema, No Gallop, No JVD, Systolic Murmur Gastrointestinal: Normal Bowel Sounds, No Organomegaly, No Pulsatile Mass, Non Tender, Soft Back: Normal Inspection, No CVA Tenderness, No Vertebral Tenderness Extremity: Normal Capillary Refill, Normal Inspection, Normal Range of Motion (except right leg), Non Tender, No Calf Tenderness, No Pedal Edema Neurologic/Psychiatric: Alert, Oriented x3, No Motor/Sensory Deficits, Normal Mood/Affect Skin: Normal Color, Warm/Dry Lymphatic: No Adenopathy Results/Procedures Lab Patient resulted labs reviewed. FIM Transfers Therapy Code Descriptions/Definitions Functional [place] Measure: 0=Not Assessed/NA 4=Minimal Assistance 1=Total Assistance 5=Supervision or Setup 2=Maximal Assistance 6=Modified [place] 3=Moderate Assistance 7=Complete [place] Therapy Quality Codes: 6 Independent with activity with or without an assistive device 5 Patient requires set up or clean up by helper. Patient completes activity by themselves 4 Supervision or touching assist (CGA). Ringle provide cues , steadying assi st 3 The helper provides less than half the effort to complete the activity 2 The helper provides more than half the effort to complete the activity 1 Dependent. The helper does all the effort to complete an activity 7 Patient refused to complete or attempt activity 9 The patient did not perform the activity before the current illness or injury 88 Not attempted due to Medical conditions or safety concerns Transfers (B, C, W/C) (FIM): 4 Scootin Rollin Roll Left to Right (QC): 3 Supine to/from Sit: 4 Sit to/from Stand: 5 Sit to Lying (QC): 4 (assist with right LE and cues for sequencing. ) Sit to Stand (QC): 4 (SB-CGA for safety) Chair/Ioq-gg-Mtpib Xfer(QC): 4 Bed to/from Chair: 5 Car Transfer (QC): 4 Gait Training Does the Patient Walk?: Yes Gait (FIM): 4 Distance (FIM): 3=150 ft Distance: 150 ft x 3 Walk 10 feet (QC): 4 Walk 50 ft with 2 Turns(QC): 4 Walk 150 ft (QC): 88 Walking 10ft/uneven surface-QC: 4 Gait Level of Assist: 5 Gait Persons Needed: 1 Gait Assistive Device: FWW Wheelchair Training Does the Pt Use a Wheelchair?: No Stair Training Stair Training: Handrails/: 2 handrails Stairs (FIM): 2 #of Steps: 1 1 Step (curb) (QC): 3 4 Steps (QC): 88 12 Steps (QC): 88 Stairs: Pattern: Step to Level of Assist: 4 Balance Picking up an Object (QC): 88 (contraindicated) Mental Status/Objective Comprehension: 6 Expression: 6 Social Interaction: 7 Problem Solvin Memory: 4 ADL-Treatment Feedin (Pt able to open all containers and bring food to mouth.) Eating (QC): 6 Groomin (SBA standing at sink with FWW. Pt brushed hair and teeth, washed face and hands.) Oral Hygiene (QC): 4 Bathin (SPONGE BATH: CGA during standing for washing buttocks/periarea at grab bars. Pt required assistance lifting RLE while he washed using long handled sponge. Pt educated on using long handled sponge for BLEs, pt demo'd understanding. Pt completed 11/26 parts.) Bathing Location: L Arm, R Arm, L Upper Leg, R Upper Leg, L Lower Leg (including foot), Chest, Abdomen, Buttocks, Perineal Area Shower/Bathe Self (QC): 3 Upper Extremity Dressin (Set up assist) Upper Body Dressing (QC): 5 Lower Extremity Dressin (4/8 pants, underwear, socks. OT educated pt on dressing stick and sock aid, pt required assistance threading RLE into underwear/pants/socks and threading LLE into pants using AE. Mod verbal cues required for AE.) Lower Body Dressing (QC): 2 On/Off Footwear (QC): 3 Toiletin (pt completed 05/19, SBA for safety) Toileting Hygiene (QC): 4 Toilet/Commode Transfer: 5 (SBA for safety/balance) Toilet Transfer (QC): 4 Shower: 4 (CGA in/out of shower using grab bars.) Assessment/Plan Assessment and Plan Assess & Plan/Chief Complaint Assessment: Right hip replacement POD # 7 Urinary retention now resolved and voiding well thanks to Dr Arroyo CRI stable at 1.38 HTN AF Murmur of type ECHO pending Post op anemia no indication for transfusions GERD Gout Plan: Dr Arroyo and Dr Griffiths appreciated Monitor hgb and creat Eliquis IRF protocol Urination monitored and improved DC planning (1) Status post right hip replacement Status: Acute (2) Atrial fibrillation Status: Chronic Qualifiers: Atrial fibrillation type: paroxysmal Qualified Codes: I48.0 - Paroxysmal atrial fibrillation (3) Urinary retention Status: Acute (4) Gout Status: Chronic Qualifiers: Gout site: unspecified site Gout etiology: unspecified cause Chronicity: unspecified Qualified Codes: M10.9 - Gout, unspecified (5) CAD (coronary artery disease) Status: Chronic Qualifiers: Coronary Disease-Associated Artery/Lesion type: mcgrath artery [place] vs. transplanted heart: mcgrath heart Associated angina: without angina Qualified Codes: I25.10 - Atherosclerotic heart disease of mc[place]ath coronary artery without angina pectoris (6) Hyperlipemia Status: Chronic Qualifiers: Hyperlipidemia type: mixed hyperlipidemia Qualified Codes: E78.2 - Mixed hyperlipidemia (7) Murmur Status: Chronic (8) Osteoarthritis Status: Chronic Qualifiers: Osteoarthritis location: unspecified site Osteoarthritis type: unspecified Qualified Codes: M19.90 - Unspecified osteoarthritis, unspecified site (9) GERD (gastroesophageal reflux disease) Status: Chronic Qualifiers: Esophagitis presence: without esophagitis Qualified Codes: K21.9 - Gastro- esophageal reflux disease without esophagitis (10) Hypertension Status: Chronic Qualifiers: Hypertension type: essential hypertension Qualified Codes: I10 - Essential (primary) hypertension (11) Valvular heart disease Status: Chronic (12) Postoperative anemia Status: Acute (13) Marley catheter in place Status: Acute (14) Advanced age Status: Chronic SHAWNA ADEN DO Nov 26, 2018 09:37
--- NOTE | 2018-11-26 10:11 | Speech Therapy Daily Note ---
Speech Daily Progress Note Subjective Date Seen by Provider: Nov 26, 2018 Time Seen by Provider: 00:30 The patient was resting in bed when I entered his room. He stated he wasn't having much pain this am. Objective The patient completed a series of memory questions of general information: place s and people at 75% with moderate verbal cues. Assessment Assessment Current Status: Good Progress Treatment Plan Continue Plan of Care Communication Comprehension: 6 Expression: 6 Social Cognition Social Interaction: 7 Problem Solvin Memory: 4 Speech Short Term Goals Short Term Goals Short Term Goals 1) The patient will complete memory tasks with 90% or greater accuracy given minimal cues. 2) The patient will complete problem solving tasks with 90% or greater accuracy given minimal cues. 3) The patient will complete safety awareness tasks with 90% or greater accuracy given minimal cues. Speech Fdc Goals Fdc Goals The patient will improve his cognitive level of function so that he may return home safely. Speech-Plan Patient/Family Goals Patient/Family Goals: The patient plans on returning home with his post rehab. Treatment Plan Speech Therapy Treatment Plan: Continue Plan of Care The patient will continue cognitive therapy with improvement anticipated. Treatment Duration: Dec 04, 2018 Frequency: 5 times per week Estimated Hrs Per Day: .5 hour per day Rehab Potential: Good Barriers to Learning: The patient has cognitive deficits, these do appear to be improving. Pt/Family Agrees to Plan: Yes Safety Risks/Education Teaching Recipient: Patient Teaching Methods: Discussion Response to Teaching: Verbalize Understanding Education Topics Provided: Continued safety and communication of his wants/needs. Time Speech Therapy Time In: 09:00 Speech Therapy Time Out: 09:30 Total Billed Time: 30 Billed Treatment Time 1, TATA Miles Nov 26, 2018 10:11
[2018-11-26] MEDS: ARTIFICAL TEARS 0.4 ML UNIT DOSE (REFRESH PLUS) OU SCH ×2 (10:19→20:35)
[2018-11-26] MEDS: ZINC SULFATE 220 MG CAPSULE PO SCH (10:20)
[2018-11-26] MEDS: SENNA W/DOCUSATE (SENOKOT S) TABLET PO SCH ×2 (10:20→20:35)
[2018-11-26] MEDS: ALLOPURINOL 300 MG (ZYLOPRIM) TAB PO SCH (10:20)
[2018-11-26] MEDS: CARVEDILOL 6.25 MG (COREG) TAB PO SCH ×2 (10:20→20:35)
[2018-11-26] MEDS: APIXABAN 2.5 MG (ELIQUIS) TABLET PO SCH ×2 (10:20→20:35)
[2018-11-26] MEDS: OMEGA 3 (FISH OIL) 1000 MG CAP PO SCH (10:20)
[2018-11-26] MEDS: VITAMIN D3 1,000 UNITS (CHOLECALCIFEROL) TABLET PO SCH (10:20)
[2018-11-26] MEDS: oxyCODONE/APAP 5/325MG (PERCOCET 5) TABLET PO PRN (10:25)
--- NOTE | 2018-11-26 11:00 | NUR ---
Pastoral care visit.
--- NOTE | 2018-11-26 11:20 | Occupational Ther Daily Note ---
OT Current Status-Daily Note Subjective Pt seen supine in bed. Pt awake and agreeable to OT tx session. Pt desired shower, no pain noted. Mental Status/Objective Patient Orientation: Normal For Age Therapy Code Descriptions/Definitions Functional [place] Measure: 0=Not Assessed/NA 4=Minimal Assistance 1=Total Assistance 5=Supervision or Setup 2=Maximal Assistance 6=Modified [place] 3=Moderate Assistance 7=Complete [place] ADL-Treatment Therapy Code Descriptions/Definitions Functional [place] Measure: 0=Not Assessed/NA 4=Minimal Assistance 1=Total Assistance 5=Supervision or Setup 2=Maximal Assistance 6=Modified [place] 3=Moderate Assistance 7=Complete [place] Therapy Quality Codes: 6 Independent with activity with or without an assistive device 5 Patient requires set up or clean up by helper. Patient completes activity by themselves 4 Supervision or touching assist (CGA). [place] provide cues , steadying assist 3 The helper provides less than half the effort to complete the activity 2 The helper provides more than half the effort to complete the activity 1 Dependent. The helper does all the effort to complete an activity 7 Patient refused to complete or attempt activity 9 The patient did not perform the activity before the current illness or injury 88 Not attempted due to Medical conditions or safety concerns Grooming (FIM): 5 (s/u for shave, mod I for use of FWW at sink for balance during hair grooming.) Bathing (FIM): 4 (Pt required assist with washing back. Pt able to reach all other areas with use of long handled sponge.) Shower/Bathe Self (QC): 3 Upper Body (FIM): 5 (s/u and noted increased time) Upper Body Dressing (QC): 5 Lower Body Dressing (FIM): 3 (Pt required assist for threading R leg into breif and pant leg. Pt able to complete L leg and pulling up with grab bars for steadying assist) Lower Body Dressing (QC): 3 On/Off Footwear (QC): 3 (Pt required assist for sock donning on R leg, pt able to thread sock onto sock aide but due to edema and wet skin, pt required assist to pull sock aide up to don sock. Pt completed L foot with mod I.) Transfers (B, C, W/C) (FIM): 4 (assist with R LE out of bed. ) Tub Transfer(FIM): 5 (SBA, use of FWW) Other Treatment Pt completed shower. Pt able to dry all areas excluding bottoms of feet. Noted SOB during tasks, pt states no 02 use during day. Pt's nurse notified. Pt demonstrated difficulty moving R LE during pant/ sock donning- required assist with donning LE dressings to R leg. Pt shaved with electric razor while standing at sink. Pt's nurse present at end of session. Pt left with nurse as she took vitals at end of session. All needs met. Education OT Patient Education: Correct positioning, Energy conservation, Modified ADL techniques, Progress toward Goal/Update tx plan, Rehab process, Safety issues, Transfer techniques, Use of adapted equipment Teaching Recipient: Patient Teaching Methods: Demonstration, Discussion Response to Teaching: Verbalize Understanding, Return Demonstration OT Short Term Goals Short Term Goals Time Frame: Dec 04, 2018 Grooming(FIM): 5 Bathing(FIM): 4 Bathing Location: L Arm, R Arm, L Upper Leg, R Upper Leg, Chest, Abdomen, Buttocks, Perineal Area Upper Body Dressing(FIM): 5 Lower Body Dressing(FIM): 5 Toileting(FIM): 5 Transfers (B,C,W/C) (FIM): 5 Toilet/Commode Transfer(FIM): 5 Shower Transfer(FIM): 4 1=Demonstrate adherence to instructed precautions during ADL tasks. 2=Patient will verbalize/demonstrate understanding of assistive devices/modifications for ADL. 3=Patient will improve strength/tolerance for activity to enable patient to perform ADL's. OT Roll Over Loader Goals Alf Goals Time Frame: Dec 13, 2018 Eating (FIM): 7 Eating (QC): 6 Groomin Oral Hygiene (QC): 6 Bathing(FIM): 5 Bathing Location: L Arm, R Arm, L Upper Leg, R Upper Leg, L Lower Leg (including foot), R Lower Leg (including foot), Chest, Abdomen, Buttocks, Perineal Area Shower/Bathe Self (QC): 5 Upper Body Dressing(FIM): 6 Upper Body Dressing (QC): 6 Lower Body Dressing(FIM): 6 Lower Body Dressing (QC): 6 On/Off Footwear (QC): 6 Toileting(FIM): 6 Toileting Hygiene (QC): 6 Transfers (B,C,W/C) (FIM): 6 Toilet/Commode Transfer(FIM): 6 Toilet/Commode Transfer (QC): 6 Shower Transfer(FIM): 5 Additional Goals: 1-Demonstrate ADL Tasks, 2-Verbalize Understanding, 3- ImproveStrength/Lizet 1=Demonstrate adherence to instructed precautions during ADL tasks. 2=Patient will verbalize/demonstrate understanding of assistive devices/modifications for ADL. 3=Patient will improve strength/tolerance for activity to enable patient to perform ADL's. OT Education/Plan Problem List/Assessment Assessment: Decreased Activ Tolerance, Decreased UE Strength, Dependent Transfers, Impaired Bed Mobility, Impaired Funct Balance, Impaired I ADL's, Impaired Self-Care Skills Pt would benefit from skilled OT services in order to increase independence in ADLs and functional mobility in order for pt to safely return home. Discharge Recommendations Plan/Recommendations: Continue POC Treatment Plan/Plan of Care Treatment,Training & Education: Yes Patient would benefit from OT for education, treatment and training to promote independence in ADL's, mobility, safety and/or upper extremity function for ADL's. Plan of Care: ADL Retraining, Caregiver Training, Functional Mobility, Group Exercise/Act as Ind, UE Funct Exercise/Act Treatment Duration: Dec 13, 2018 Frequency: At least 5 of 7 days/Wk (IRF) Estimated Hrs Per Day: 1.5 hours per day Agreement: Yes Rehab Potential: Good Time/GCodes Start Time: 09:30 Stop Time: 10:15 Total Time Billed (hr/min): 45 Billed Treatment Time 1 ADL 3 (45) GAUDENCIO VALENZUELA OTR Nov 26, 2018 11:20
--- NOTE | 2018-11-26 11:35 | Progress Note - Urology ---
Progress Note-Urology Progress Notes/Assess & Plan Progress/Assessment & Plan VOIDING WELL ON FLOMAX. REFUSED URECHOLINE. PVR 117. CONTINUE SAME Final Diagnosis URINE RETENTION (RESOLVING) STEVEN MCDANIEL MD Nov 26, 2018 11:35
--- NOTE | 2018-11-26 12:00 | Physical Therapy Daily Note ---
PT Daily Note-Current Subjective Pt sitting in recliner upon arrival. Pt agrees to PT. Pain Numeric Pain Scale: 4 Location: Right Location Body Site: Hip Pain Description: Ache, Tightness Mental Status Patient Orientation: Person, Place, Situation Transfers Therapy Code Descriptions/Definitions Functional [place] Measure: 0=Not Assessed/NA 4=Minimal Assistance 1=Total Assistance 5=Supervision or Setup 2=Maximal Assistance 6=Modified [place] 3=Moderate Assistance 7=Complete [place] Therapy Quality Codes: 6 Independent with activity with or without an assistive device 5 Patient requires set up or clean up by helper. Patient completes activity by themselves 4 Supervision or touching assist (CGA). [place] provide cues , steadying assist 3 The helper provides less than half the effort to complete the activity 2 The helper provides more than half the effort to complete the activity 1 Dependent. The helper does all the effort to complete an activity 7 Patient refused to complete or attempt activity 9 The patient did not perform the activity before the current illness or injury 88 Not attempted due to Medical conditions or safety concerns Scootin Supine to/from Sit: 4 Sit to/from Stand: 5 Sit to Lying (QC): 4 Sit to Stand (QC): 5 Weight Bearing Right Lower Extremity: Right Weight Bearing/Tolerated Left Lower Extremity: Left Full Weight Bearing Gait Training Does the Patient Walk?: Yes Gait (FIM): 5 Distance (FIM): 3=150 ft Distance: 150' Walk 10 feet (QC): 5 Walk 50 ft with 2 Turns(QC): 5 Walk 150 ft (QC): 5 Gait Level of Assist: 5 Gait Persons Needed: 1 Gait Assistive Device: FWW Wheelchair Training Does the Pt Use a Wheelchair?: No Stair Training Stair Training: Handrails/: 2 handrails #of Steps: 4 1 Step (curb) (QC): 4 4 Steps (QC): 4 Stairs: Pattern: Step to Level of Assist: 4 Exercises Supine Ex: Short Arc Quads, Scooting, Hip abd/add Supine Reps: 20 Seated Therapy Exercises: Ankle pumps, Long arc quads, Hip flexion, Kicking activity, Hamstring Curls Seated Reps: 20 Treatments Pt completes Seated EX in recliner before transferring from sitting to standing. Pt ambulates in hallway. Pt completes 1 set of 4 steps before taking RB. Pt returns to room to rest & use restroom. Pt has all needs met at end of tx, call light in hand. Assessment Current Status: Good Progress Pt still demonstrates pain while walking but continues to not let this limit participation in tx. PT Short Term Goals Short Term Goals Time Frame: Nov 29, 2018 Transfers (B,C,W/C) (FIM): 5 Gait (FIM): 4 (met) Distance (FIM): 3=150 ft Gait Assistive Device: FWW PT Alf Goals Auto Radiator Mechanic Goals PT Alf Goals Time Frame: Dec 06, 2018 Transfers (B,C,W/C) (FIM): 7 Sit to Lying (QC): 6 Lying-Sitting on Side/Bed(QC): 6 Sit to Stand (QC): 6 Rollin Roll Left to Right (QC): 6 Chair/Lqy-pz-Orrut Xfer(QC): 6 Car Transfer (QC): 6 Does the Patient Walk: Yes Gait (FIM): 6 Gait distance (FIM): 3=150 ft Walk 10 feet (QC): 6 Walk 10ft-Uneven Surface(QC): 6 Walk 50ft with 2 Turns (QC): 6 Walk 150 ft (QC): 6 Gait Assistive Device: FWW Does the Pt use WC or Scooter?: No Stairs (FIM): 5 # of Steps: 4 1 Step (curb) (QC): 6 4 Steps (QC): 6 12 Steps (QC): 9 Picking up an Object (QC): 88 PT Plan Problem List Problem List: Activity Tolerance, Functional Strength, Gait Treatment/Plan Treatment Plan: Continue Plan of Care Treatment Plan: Bed Mobility, Education, Functional Activity Lizet, Functional Strength, Group Therapy, Gait, Safety, Therapeutic Exercise, Transfers Treatment Duration: Dec 06, 2018 Frequency: At least 5 of 7 days/Wk (IRF) Estimated Hrs Per Day: 1.5 hours per day Patient and/or Family Agrees t: Yes Safety Risks/Education Patient Education: Gait Training, Transfer Techniques, Correct Positioning, Safety Issues Teaching Recipient: Patient Teaching Methods: Discussion Response to Teaching: Verbalize Understanding Time/GCodes Time In: 1015 Time Out: 1100 Total Billed Treatment Time: 45 Total Billed Treatment 1, GT (15m) & EX x2 (30m) DILLAN HUGGINS RAIL DOWELING MACHINE OPERATOR Nov 26, 2018 12:00
--- NOTE | 2018-11-26 13:54 | CONSULTATION REPORT ---
DATE OF SERVICE: 11/22/2018 ATTENDING PHYSICIAN: Nohelia Arrington DO SUMMARY: An 83-year-old white man recovering from hip surgery was found to have urinary retention with a trial of voiding failed. He was on Flomax 0.4 mg at bedtime. ALLERGIES: He has no known drug allergies. IMPRESSION: Urinary retention. PLAN: Continue Flomax. Start him on Urecholine and manage accordingly. Job ID: [id number] DocumentID: [id number] Dictated Date: 11/26/2018 11:37:49 Plane Tableman Date: 11/26/2018 13:53:16 Dictated By: STEVEN MCDANIEL MD
--- NOTE | 2018-11-26 14:59 | Therapy Group Daily Note ---
Therapy Daily Group Note Patient Education Topic Home Safety, Home Safety Session Ratio (pt:therapist): 4:1 Goal of Session: Education on ARU Expectations, Home Safety Strategies, Memory Strategies Goal Met for this Session: Yes Pt Benefit of Group: Contributions to Others, F/U Use of Strategies @Home, Increased Functional Safety, Improved Cognition, Recognition of Peers, Soci alization Other/Notes pt ambulated to common areas using RW and SBA For safety/ balance group consisted of introduction (name, where you're from, and home safety question). pt shared appropriate and was activity listening and engaging with peers. Group therapy with focused on home safety and cognitive trivia. Then participated collectively with group for education regarding home safety strategies, adaptive equipment, and further education on discharge planning. This group also conta ined trivia pertaining to history, thus engaging in memory and knowledge. pt then transported back to room and laying supine in bed post session. call light within reach, all needs met. Start Time: 13:00 Stop Time: 14:15 Total Billed Treatment 1, GRP 75 minutes YING ROSENBAUM OT Nov 26, 2018 14:59
--- NOTE | 2018-11-26 16:04 | Progress Note ---
HARSHIL CAMARILLO [facility] 11/26/18 1604: Subjective Date Seen by a Provider: Nov 26, 2018 Time Seen by a Provider: 14:40 Subjective/Events-last exam Vitals are stable. Stooling well with no reported issues. Voiding without complaints. Sleeping well throughout the night. Decrease in appetite reported - not a fan of hospital food. Drinking with ease. PT/OT are going well. Tolerating the pain the best he can and trying to continue to progress. ROS: +: N/A -: N/V/D, Chest pain/SOB, Fever, Chills Concerns: just wants to remove some of the excess bands from his wrist. Focused Exam Peripheral Pulses: 2+ Dorsalis Pedis (R), 2+ Left Dors-Pedis (L), 2+ Radial Pulses (R), 2+ Radial Pulses (L) Objective Exam Last Set of Vital Signs Vital Signs Date Time Temp Pulse Resp B/P (MAP) Pulse Ox O2 Delivery O2 Flow Rate FiO2 11/26/18 08:20 Room Air 11/26/18 07:26 94 11/26/18 06:03 37.1 61 18 126/66 Capillary Refill : Less Than 3 Seconds I&O Intake and Output 11/26/18 00:00 Intake Total 1340 ml Balance 1340 ml Intake Oral 1340 ml # Voids 10 # Bowel Movements 2 General: Alert, Oriented X3, Cooperative, No Acute Distress Lungs: Clear to Auscultation, Normal Air Movement Heart: Regular Rate Abdomen: Normal Bowel Sounds, No Tenderness Assessment/Plan Assessment/Plan Assess & Plan/Chief Complaint 1. Right ANNIKA 2. Burning sensation in the R Hip 1. PT/OT 2. Pain medication Clinical Quality Measures DVT/VTE Risk/Contraindication: Risk Factor Score Per Nursin RFS Level Per Nursing on Admit: 4+=Very High NOHELIA ADEN DO 11/26/18 1638: Supervisory-Addendum Brief Verification & Attestation Participated in pt care: history, MDM, physical Personally performed: exam, history, MDM, supervision of care Care discussed with: Medical Student Procedures: n/a Results interpretation: Verified all documentation Verification and Attestation of Medical Student E/M Service A medical student performed and documented this service in my presence. I reviewed and verified all information documented by the medical student and made modifications to such information, when appropriate. I personally performed the physical exam and medical decision making. Nohelia Aden, Nov 26, 2018,16:38 [facility] CAMARILLO [facility] Nov 26, 2018 16:04 NOHELIA ADEN DO Nov 26, 2018 16:38
[2018-11-26] MEDS: FUROSEMIDE 20 MG (LASIX) TAB PO SCH (17:42)
[2018-11-26 18:00] VITALS: BP 116/72
--- NOTE | 2018-11-26 19:25 | NUR ---
bedside report received from GENIE HWANG, assume care of pt
[2018-11-26 20:30] VITALS: BP 120/70
--- NOTE | 2018-11-26 20:30 | NUR ---
pt refused Senokot, scheduled Tylenol 1000mg po given pain level 2/10 on numeric scale
[2018-11-26] MEDS: ACETAMINOPHEN 500 MG TAB (TYLENOL) PO SCH (20:35)
[2018-11-26] MEDS: TAMSULOSIN 0.4 MG (FLOMAX) CAP PO SCH (20:35)
--- NOTE | 2018-11-26 20:35 | NUR ---
assessments & interventions completed, see assessments & interventions, up to bathroom with standby assist & walker
[2018-11-27 05:29] VITALS: BP 120/67
[2018-11-27] MEDS: PANTOPRAZOLE 40 MG (PROTONIX) TAB PO SCH (06:45)
[2018-11-27] MEDS: IRON POLYSAC 150 MG CAP (NIFEREX) PO SCH ×2 (06:45→17:58)
[2018-11-27] MEDS: MULTIVIT W/MINERALS TAB (THERAGRAN M) PO SCH (06:45)
--- NOTE | 2018-11-27 07:24 | NUR ---
bedside report given to GENIE HWANG
--- NOTE | 2018-11-27 07:37 | Progress Note ---
HARSHIL CAMARILLO [facility] 11/27/18 0737: Subjective Date Seen by a Provider: Nov 27, 2018 Time Seen by a Provider: 07:00 Subjective/Events-last exam Vital are normal and stable. Voiding well. Issues with stooling. Considering the use of stool softeners. Eating and drinking well. Slept well. ROS: + : Burning sensation with hip pain, back soreness. - : Fever/Chills, N/V/D, SOB/Chest pain, Dizziness/ HELMS Objective Exam Last Set of Vital Signs Vital Signs Date Time Temp Pulse Resp B/P (MAP) Pulse Ox O2 Delivery O2 Flow Rate FiO2 11/27/18 05:29 36.9 63 16 120/67 97 Room Air Capillary Refill : Less Than 3 Seconds I&O Intake and Output 11/27/18 00:00 Intake Total 1480 ml Balance 1480 ml Intake Oral 1480 ml # Voids 8 # Bowel Movements 2 General: Alert, Oriented X3, Cooperative, No Acute Distress Lungs: Normal Air Movement Abdomen: No Tenderness Assessment/Plan Assessment/Plan Assess & Plan/Chief Complaint 1. Right ANNIKA 2. Burning sensation in the R Hip 1. PT/OT 2. Pain medication Clinical Quality Measures DVT/VTE Risk/Contraindication: Risk Factor Score Per Nursin RFS Level Per Nursing on Admit: 4+=Very High NOHELIA ADEN DO 11/27/18 0856: Supervisory-Addendum Brief Verification & Attestation Participated in pt care: history, MDM, physical Personally performed: exam, history, MDM, supervision of care Care discussed with: Medical Student Procedures: n/a Results interpretation: Verified all documentation Verification and Attestation of Medical Student E/M Service A medical student performed and documented this service in my presence. I reviewed and verified all information documented by the medical student and made modifications to such information, when appropriate. I personally performed the physical exam and medical decision making. Nohelia Aden, Nov 27, 2018,15:30 HARSHIL CAMARILLO [facility] Nov 27, 2018 07:37 NOHELIA ADEN DO Nov 27, 2018 08:56
--- NOTE | 2018-11-27 09:00 | Progress Note - Urology ---
Progress Note-Urology Progress Notes/Assess & Plan Progress/Assessment & Plan STILL VOIDING WELL. KEEP ON FLOMAX Final Diagnosis URINE RETENTION (RESOLVED) STEVEN MCDANIEL MD Nov 27, 2018 09:00
--- NOTE | 2018-11-27 09:01 | PM&R Progress Note ---
Subjective HPI/CC On Admission Date Seen by Provider: Nov 27, 2018 Time Seen by Provider: 09:00 CC: Debility following right hip replacement uncomplicated by Dr Nickerson POD # 3 HPI: This is an 83yoWM clinic pt of Dr. Ramirez in [place] who presented to the inpatient rehab following an uncomplicated right total hip replacement after her failed conservative treatment. He has a history of AF and sees Dr. Vera cardiology for that but has had significant weakness prior to sx and subsequent to surgery so he was found to meet criteria for inpatient rehab and has some sig nificant problems with urinary retention maintained on Marley catheter since unable to urinate the night of surgery. At this current time pt remains stable, hgb slightly low at 8.8 his AF has done well after an atrial fibrillation episode in the OR but remains in normal sinus rhythm now. He has had 3 bowel movements this morning before leaving [facility] in [place]. He will return home at [place]. His prior level of functioning was use of assistive devices and fairly independent with ADLs. He has been for 49 years. Subjective/Events-last exam Doing very well Pain pill only taken with PT His self care is doing very well Bowels are moving Doing extremely well overall Will evaluate DC planning Slums score was 20/30 Pain is well controlled Overall feels much better Conferred with RN Reviewed therapy notes Check meds and labs Review of Systems General: Fatigue Musculoskeletal: leg pain Objective Exam Vital Signs Vital Signs Date Time Temp Pulse Resp B/P (MAP) Pulse Ox O2 Delivery O2 Flow Rate FiO2 11/27/18 19:27 93 Room Air 11/27/18 17:17 37.0 75 18 110/66 Capillary Refill : Less Than 3 Seconds General Appearance: No Apparent Distress, WD/WN, Chronically ill HEENT: PERRL/EOMI, Normal ENT Inspection, Pharynx Normal, Moist Mucous Membranes Neck: Full Range of Motion, Normal Inspection, Non Tender, Supple Respiratory: Chest Non Tender, Lungs Clear, Normal Breath Sounds, No Accessory Muscle Use, No Respiratory Distress Cardiovascular: Regular Rate, Rhythm, No Edema, No Gallop, No JVD, Systolic Murmur Gastrointestinal: Normal Bowel Sounds, No Organomegaly, No Pulsatile Mass, Non Tender, Soft Back: Normal Inspection, No CVA Tenderness, No Vertebral Tenderness Extremity: Normal Capillary Refill, Normal Inspection, Normal Range of Motion (except right leg), Non Tender, No Calf Tenderness, No Pedal Edema Neurologic/Psychiatric: Alert, Oriented x3, No Motor/Sensory Deficits, Normal Mood/Affect Skin: Normal Color, Warm/Dry Lymphatic: No Adenopathy Results/Procedures Lab Patient resulted labs reviewed. FIM Transfers Therapy Code Descriptions/Definitions Functional [place] Measure: 0=Not Assessed/NA 4=Minimal Assistance 1=Total Assistance 5=Supervision or Setup 2=Maximal Assistance 6=Modified [place] 3=Moderate Assistance 7=Complete [place] Therapy Quality Codes: 6 Independent with activity with or without an assistive device 5 Patient requires set up or clean up by helper. Patient completes activity by themselves 4 Supervision or touching assist (CGA). [place] provide cues , steadying assist 3 The helper provides less than half the effort to complete the activity 2 The helper provides more than half the effort to complete the activity 1 Dependent. The helper does all the effort to complete an activity 7 Patient refused to complete or attempt activity 9 The patient did not perform the activity before the current illness or injury 88 Not attempted due to Medical conditions or safety concerns Transfers (B, C, W/C) (FIM): 4 (assist with R LE out of bed. ) Scootin Rollin Roll Left to Right (QC): 3 Supine to/from Sit: 4 Sit to/from Stand: 5 Sit to Lying (QC): 4 Sit to Stand (QC): 5 Chair/Fae-ea-Ppbxo Xfer(QC): 4 Bed to/from Chair: 5 Car Transfer (QC): 4 Gait Training Does the Patient Walk?: Yes Gait (FIM): 5 Distance (FIM): 3=150 ft Distance: 150' Walk 10 feet (QC): 5 Walk 50 ft with 2 Turns(QC): 5 Walk 150 ft (QC): 5 Walking 10ft/uneven surface-QC: 4 Gait Level of Assist: 5 Gait Persons Needed: 1 Gait Assistive Device: FWW Wheelchair Training Does the Pt Use a Wheelchair?: No Stair Training Stair Training: Handrails/: 2 handrails Stairs (FIM): 2 #of Steps: 4 1 Step (curb) (QC): 4 4 Steps (QC): 4 12 Steps (QC): 88 Stairs: Pattern: Step to Level of Assist: 4 Balance Picking up an Object (QC): 88 (contraindicated) Mental Status/Objective Comprehension: 6 Expression: 6 Social Interaction: 7 Problem Solvin Memory: 4 ADL-Treatment Feedin (Pt able to open all containers and bring food to mouth.) Eating (QC): 6 Groomin (s/u for shave, mod I for use of FWW at sink for balance during hair grooming.) Oral Hygiene (QC): 4 Bathin (Pt required assist with washing back. Pt able to reach all other areas with use of long handled sponge.) Bathing Location: L Arm, R Arm, L Upper Leg, R Upper Leg, L Lower Leg (including foot), Chest, Abdomen, Buttocks, Perineal Area Shower/Bathe Self (QC): 3 Upper Extremity Dressin (s/u and noted increased time) Upper Body Dressing (QC): 5 Lower Extremity Dressin (Pt required assist for threading R leg into breif and pant leg. Pt able to complete L leg and pulling up with grab bars for steadying assist) Lower Body Dressing (QC): 3 On/Off Footwear (QC): 3 (Pt required assist for sock donning on R leg, pt able to thread sock onto sock aide but due to edema and wet skin, pt required assist to pull sock aide up to don sock. Pt completed L foot with mod I.) Toiletin (pt completed 3/3, SBA for safety) Toileting Hygiene (QC): 4 Toilet/Commode Transfer: 5 (SBA for safety/balance) Toilet Transfer (QC): 4 Tub: 5 (SBA, use of FWW) Shower: 4 (CGA in/out of shower using grab bars.) Assessment/Plan Assessment and Plan Assess & Plan/Chief Complaint Assessment: Right hip replacement POD # 8 Urinary retention now resolved and voiding well thanks to Dr Arroyo CRI stable at 1.38 HTN AF Murmur of type ECHO pending Post op anemia no indication for transfusions GERD Gout Plan: Dr Arroyo and Dr Griffiths appreciated Monitor hgb and creat Eliquis IRF protocol Urination monitored and improved DC planning for future for home with HH (1) Status post right hip replacement Status: Acute (2) Atrial fibrillation Status: Chronic Qualifiers: Atrial fibrillation type: paroxysmal Qualified Codes: I48.0 - Paroxysmal atrial fibrillation (3) Urinary retention Status: Acute (4) Gout Status: Chronic Qualifiers: Gout site: unspecified site Gout etiology: unspecified cause Chronicity: unspecified Qualified Codes: M10.9 - Gout, unspecified (5) CAD (coronary artery disease) Status: Chronic Qualifiers: Coronary Disease-Associated Artery/Lesion type: [place] artery [place] vs. transplanted heart: [place] heart Associated angina: without angina Qualified Codes: I25.10 - Atherosclerotic heart disease of [place] coronary artery without angina pectoris (6) Hyperlipemia Status: Chronic Qualifiers: Hyperlipidemia type: mixed hyperlipidemia Qualified Codes: E78.2 - Mixed hyperlipidemia (7) Murmur Status: Chronic (8) Osteoarthritis Status: Chronic Qualifiers: Osteoarthritis location: unspecified site Osteoarthritis type: unspecified Qualified Codes: M19.90 - Unspecified osteoarthritis, unspecified site (9) GERD (gastroesophageal reflux disease) Status: Chronic Qualifiers: Esophagitis presence: without esophagitis Qualified Codes: K21.9 - Gastro- esophageal reflux disease without esophagitis (10) Hypertension Status: Chronic Qualifiers: Hypertension type: essential hypertension Qualified Codes: I10 - Essential (primary) hypertension (11) Valvular heart disease Status: Chronic (12) Postoperative anemia Status: Acute (13) Marley catheter in place Status: Acute (14) Advanced age Status: Chronic SHAWNA ADEN DO Nov 27, 2018 09:01
[2018-11-27] MEDS: RT-ADVAIR HFA 45/21 MCG PER PUFF IH SCH ×2 (09:26→19:27)
[2018-11-27] MEDS: VITAMIN D3 1,000 UNITS (CHOLECALCIFEROL) TABLET PO SCH (10:49)
[2018-11-27] MEDS: ZINC SULFATE 220 MG CAPSULE PO SCH (10:49)
[2018-11-27] MEDS: OMEGA 3 (FISH OIL) 1000 MG CAP PO SCH (10:50)
[2018-11-27] MEDS: CARVEDILOL 6.25 MG (COREG) TAB PO SCH ×2 (10:50→20:12)
[2018-11-27] MEDS: SENNA W/DOCUSATE (SENOKOT S) TABLET PO SCH ×2 (10:50→20:13)
[2018-11-27] MEDS: predniSONE 5 MG TAB PO SCH (10:50)
[2018-11-27] MEDS: APIXABAN 2.5 MG (ELIQUIS) TABLET PO SCH ×2 (10:50→20:12)
[2018-11-27] MEDS: ARTIFICAL TEARS 0.4 ML UNIT DOSE (REFRESH PLUS) OU SCH ×2 (10:51→20:12)
[2018-11-27] MEDS: ALLOPURINOL 300 MG (ZYLOPRIM) TAB PO SCH (10:51)
[2018-11-27] MEDS: oxyCODONE/APAP 5/325MG (PERCOCET 5) TABLET PO PRN (11:05)
--- NOTE | 2018-11-27 11:51 | Physical Therapy Daily Note ---
PT Daily Note-Current Subjective Pt reports only has some achiness in thigh at rest at beginning of session. Agreeable to PT session. Pt requesting to work on getting in and out of bed as that seems to be the most difficulty for him. Pt states he has an adjustable craftmatic bed at home that he sleeps in. Pain Numeric Pain Scale: 4 Location: Right Location Body Site: Thigh Comment: increases with activity Appearance Pt sitting up in chair with nurse present upon arrival. Received pain meds during session. At end of session, pt supine in bed with call light, phone and bedside table within reach Mental Status Patient Orientation: Person, Place, Time, Eyes Open, Situation, Mumbles Transfers Therapy Code Descriptions/Definitions Functional [place] Measure: 0=Not Assessed/NA 4=Minimal Assistance 1=Total Assistance 5=Supervision or Setup 2=Maximal Assistance 6=Modified [place] 3=Moderate Assistance 7=Complete [place] Therapy Quality Codes: 6 Independent with activity with or without an assistive device 5 Patient requires set up or clean up by helper. Patient completes activity by themselves 4 Supervision or touching assist (CGA). [place] provide cues , steadying assist 3 The helper provides less than half the effort to complete the activity 2 The helper provides more than half the effort to complete the activity 1 Dependent. The helper does all the effort to complete an activity 7 Patient refused to complete or attempt activity 9 The patient did not perform the activity before the current illness or injury 88 Not attempted due to Medical conditions or safety concerns Transfers (B, C, W/C) (FIM): 4 Scootin Rollin Supine to/from Sit: 4 Sit to/from Stand: 5 min A required with LE lifting into bed, attempted with leg featherer and was able to perform without physical assist from therapist 2/3 times until fatigue and pain increased. SBA to CGA with all other transitions. HOB elevated and bedrail used with bed mobility. Skilled verb inst for body placement and technique with bed mobility and transfers for ease of movement and safety Weight Bearing Right Lower Extremity: Right Weight Bearing/Tolerated Left Lower Extremity: Left Full Weight Bearing Gait Training Does the Patient Walk?: Yes Gait (FIM): 5 Distance (FIM): 3=150 ft Distance: 300 x3 Gait Level of Assist: 5 (SBA with skilled verb inst for technique and gait quality) Gait Persons Needed: 1 (did utilize rehab care assistant to follow with w/c due to plan on increasing gait distance and gait outside on uneven surfaces, ets) Gait Assistive Device: FWW step to gait pattern with decreased step height and length, pt following skilled instruction for improving gait quality and safety. Stair Training Stair Training: Handrails/: 2 handrails #of Steps: 3 (ascend and descend) Stairs: Pattern: Step to (able to follow skilled instruction for safety and technique) Level of Assist: 4 (CGA provided) also performed gait training ascending and descending ramp outside with use of FWW, no LOB, slow pace, CGA Exercises Supine Ex: Rolling, Heel Slides, Scooting, Straight leg raise, Hip abd/add Supine Reps: 5 Seated Therapy Exercises: Ankle pumps, Sit to stand, Long arc quads, Hip flexion, Hip abd/add Seated Reps: 10 Treatments bed mobility, transfers, safety, education, gait indoor/outdoor, gait even and uneven surfaces, stair and ramp training, activity tolerance, functional mobility Assessment Current Status: Good Progress PT Short Term Goals Short Term Goals Time Frame: Nov 29, 2018 Transfers (B,C,W/C) (FIM): 5 Gait (FIM): 4 (met) Distance (FIM): 3=150 ft Gait Assistive Device: FWW PT Crematorium Operator Goals Mcfp Goals PT Mcfp Goals Time Frame: Dec 06, 2018 Transfers (B,C,W/C) (FIM): 7 Sit to Lying (QC): 6 Lying-Sitting on Side/Bed(QC): 6 Sit to Stand (QC): 6 Rollin Roll Left to Right (QC): 6 Chair/Ezg-mz-Zpilt Xfer(QC): 6 Car Transfer (QC): 6 Does the Patient Walk: Yes Gait (FIM): 6 Gait distance (FIM): 3=150 ft Walk 10 feet (QC): 6 Walk 10ft-Uneven Surface(QC): 6 Walk 50ft with 2 Turns (QC): 6 Walk 150 ft (QC): 6 Gait Assistive Device: FWW Does the Pt use WC or Scooter?: No Stairs (FIM): 5 # of Steps: 4 1 Step (curb) (QC): 6 4 Steps (QC): 6 12 Steps (QC): 9 Picking up an Object (QC): 88 PT Plan Treatment/Plan Treatment Plan: Continue Plan of Care Treatment Plan: Bed Mobility, Education, Functional Activity Liz[place], Functional Strength, Group Therapy, Gait, Safety, Therapeutic Exercise, Transfers Treatment Duration: Dec 06, 2018 Frequency: At least 5 of 7 days/Wk (IRF) Estimated Hrs Per Day: 1.5 hours per day Patient and/or Family Agrees t: Yes Safety Risks/Education Patient Education: Gait Training, Transfer Techniques, Steps, Correct Positioning, Disease Process, Safety Issues Teaching Recipient: Patient Teaching Methods: Demonstration, Discussion Response to Teaching: Verbalize Understanding, Return Demonstration Time/GCodes Time In: 1045 Time Out: 1200 Total Billed Treatment Time: 75 Total Billed Treatment 1 visit, FA x30 min, GT x30 min, EX x15 min GENEVIEVE GARRETT STAFF NURSE MIDWIFE Nov 27, 2018 11:51
--- NOTE | 2018-11-27 12:13 | Speech Therapy Daily Note ---
Speech Daily Progress Note Subjective Date Seen by Provider: Nov 27, 2018 Time Seen by Provider: 00:30 The patient was resting in bed, he reports no pain at this time. Objective The patient completed general information questions at the intermediate level with 85% accuracy given minimal cues and/or repetitions. Assessment Assessment Current Status: Good Progress Treatment Plan Continue Plan of Care Communication Comprehension: 6 Expression: 6 Social Cognition Social Interaction: 7 Problem Solvin Memory: 4 Speech Short Term Goals Short Term Goals Short Term Goals 1) The patient will complete memory tasks with 90% or greater accuracy given minimal cues. 2) The patient will complete problem solving tasks with 90% or greater accuracy given minimal cues. 3) The patient will complete safety awareness tasks with 90% or greater accuracy given minimal cues. Speech Fpc Goals Front End Loader Operator Goals The patient will improve his cognitive level of function so that he may return home safely. Speech-Plan Patient/Family Goals Patient/Family Goals: The patient plans on returning home with his post rehab. Treatment Plan Speech Therapy Treatment Plan: Continue Plan of Care The patient is progressing well toward meeting ST goals. Treatment Duration: Dec 04, 2018 Frequency: 5 times per week Estimated Hrs Per Day: .5 hour per day Rehab Potential: Good Barriers to Learning: Patient has mild cognitive deficits Pt/Family Agrees to Plan: Yes Safety Risks/Education Teaching Recipient: Patient Teaching Methods: Demonstration, Discussion Response to Teaching: Verbalize Understanding, Return Demonstration Education Topics Provided: Continued safety and communication of his wants/needs. Time Speech Therapy Time In: 09:00 Speech Therapy Time Out: 09:30 Total Billed Time: 30 Billed Treatment Time 1, TATA Miles Nov 27, 2018 12:13
--- NOTE | 2018-11-27 12:19 | Speech Therapy Daily Note ---
Speech Daily Progress Note Subjective Date Seen by Provider: Nov 27, 2018 Time Seen by Provider: 00:30 The patient was up in her chair due to just finishing up with OT. Objective Patient continues to utilize compensatory strategies as trained with all oral intake at >90%. Assessment Assessment Current Status: Good Progress Treatment Plan Continue Plan of Care Communication Comprehension: 6 Expression: 6 Social Cognition Social Interaction: 7 Problem Solvin Memory: 4 Speech Short Term Goals Short Term Goals Short Term Goals 1) The patient will complete memory tasks with 90% or greater accuracy given minimal cues. 2) The patient will complete problem solving tasks with 90% or greater accuracy given minimal cues. 3) The patient will complete safety awareness tasks with 90% or greater accuracy given minimal cues. Speech Carry All Driver Goals Carry All Driver Goals The patient will improve his cognitive level of function so that he may return home safely. Speech-Plan Patient/Family Goals Patient/Family Goals: The patient will be returning to her home this week. Treatment Plan Speech Therapy Treatment Plan: Continue Plan of Care The patient has made good progress in meeting safety of oral intake goals. Treatment Duration: Dec 04, 2018 Frequency: 5 times per week Estimated Hrs Per Day: .5 hour per day Rehab Potential: Good Barriers to Learning: Patient has had a complex medical stay, however she has significantly improved Pt/Family Agrees to Plan: Yes Safety Risks/Education Teaching Recipient: Patient Teaching Methods: Demonstration, Discussion Response to Teaching: Verbalize Understanding, Return Demonstration Education Topics Provided: Continued safety upon her return home. Time Speech Therapy Time In: 08:30 Speech Therapy Time Out: 09:00 Total Billed Time: 30 Billed Treatment Time 1, TATA Knight Nov 27, 2018 12:19
--- NOTE | 2018-11-27 12:19 | Occupational Ther Daily Note ---
OT Current Status-Daily Note Subjective Pt awake and alert in bed upon OT entry. Pt agreeable to OT tx session, no pain on this date. Mental Status/Objective Patient Orientation: Normal For Age Therapy Code Descriptions/Definitions Functional [place] Measure: 0=Not Assessed/NA 4=Minimal Assistance 1=Total Assistance 5=Supervision or Setup 2=Maximal Assistance 6=Modified [place] 3=Moderate Assistance 7=Complete [place] ADL-Treatment Therapy Code Descriptions/Definitions Functional [place] Measure: 0=Not Assessed/NA 4=Minimal Assistance 1=Total Assistance 5=Supervision or Setup 2=Maximal Assistance 6=Modified [place] 3=Moderate Assistance 7=Complete [place] Therapy Quality Codes: 6 Independent with activity with or without an assistive device 5 Patient requires set up or clean up by helper. Patient completes activity by themselves 4 Supervision or touching assist (CGA). [place] provide cues , steadying assist 3 The helper provides less than half the effort to complete the activity 2 The helper provides more than half the effort to complete the activity 1 Dependent. The helper does all the effort to complete an activity 7 Patient refused to complete or attempt activity 9 The patient did not perform the activity before the current illness or injury 88 Not attempted due to Medical conditions or safety concerns Eating (FIM): 6 Eating (QC): 6 Grooming (FIM): 6 (At sink with increased time for hair grooming with FWW for functional balance.) Oral Hygiene (QC): 6 (increased time and use of FWW during standing) Bathing (FIM): 4 (Required assist for back and feet during sponge bath. Pt able to wash feet with wash cloth wrapped around long handled sponge, pt asked for more thorough cleaning. Pt able to dry all areas.) Shower/Bathe Self (QC): 3 Upper Body (FIM): 6 (Gathered clothing. Completed UB dressing while sitting) Upper Body Dressing (QC): 6 Lower Body Dressing (FIM): 4 (Min A for threading RLE within pants. Pt requested no breif on at this time.) Lower Body Dressing (QC): 3 On/Off Footwear (QC): 5 (s/u for threading sock onto sock cortez. Pt completed with increased ind on this date. Completed R LE with sock cortez, completed L LE with IND.) Toileting (FIM): 5 (SBA) Toileting Hygiene (QC): 5 Transfers (B, C, W/C) (FIM): 4 (assist with LLE during bed mobility) Toilet/Commode Transfer (FIM): 5 (SBA for safety) Toilet Transfer (QC): 4 (SBA) Tub Transfer(FIM): 5 (SBA) Other Treatment Pt completed sponge bath on this date. Pt demonstrates slight SOB during showering, educated on pursed lip breathing during activities. Pt ambulated with FWW to therapy gym, completed UE exercises with 3# weights and HEP with handout to complete theraband exercises to increase UE endurance and strength during ADL sessions. Pt return demonstrated with accuracy, completing 10-15 reps of each exercise, requesting breaks in between exercises. Pt walked to room with SBA/ using FWW, pt sat in recliner chair end of session with call light in reach and all needs met. OT Short Term Goals Short Term Goals Time Frame: Dec 04, 2018 Grooming(FIM): 5 Bathing(FIM): 4 Bathing Location: L Arm, R Arm, L Upper Leg, R Upper Leg, Chest, Abdomen, Buttocks, Perineal Area Upper Body Dressing(FIM): 5 (met) Lower Body Dressing(FIM): 5 Toileting(FIM): 5 (met) Transfers (B,C,W/C) (FIM): 5 Toilet/Commode Transfer(FIM): 5 (met) Shower Transfer(FIM): 4 (met) 1=Demonstrate adherence to instructed precautions during ADL tasks. 2=Patient will verbalize/demonstrate understanding of assistive devices/familia fications for ADL. 3=Patient will improve strength/tolerance for activity to enable patient to perform ADL's. OT Manager Of Exhibitions And Collections Goals Manager Of Exhibitions And Collections Goals Time Frame: Dec 13, 2018 Eating (FIM): 7 Eating (QC): 6 Groomin Oral Hygiene (QC): 6 Bathing(FIM): 5 Bathing Location: L Arm, R Arm, L Upper Leg, R Upper Leg, L Lower Leg (including foot), R Lower Leg (including foot), Chest, Abdomen, Buttocks, Perineal Area Shower/Bathe Self (QC): 5 Upper Body Dressing(FIM): 6 Upper Body Dressing (QC): 6 Lower Body Dressing(FIM): 6 Lower Body Dressing (QC): 6 On/Off Footwear (QC): 6 Toileting(FIM): 6 Toileting Hygiene (QC): 6 Transfers (B,C,W/C) (FIM): 6 Toilet/Commode Transfer(FIM): 6 Toilet/Commode Transfer (QC): 6 Shower Transfer(FIM): 5 Additional Goals: 1-Demonstrate ADL Tasks, 2-Verbalize Understanding, 3-ImproveStrength/[place] 1=Demonstrate adherence to instructed precautions during ADL tasks. 2=Patient will verbalize/demonstrate understanding of assistive devices/modifications for ADL. 3=Patient will improve strength/tolerance for activity to enable patient to perform ADL's. OT Education/Plan Problem List/Assessment Assessment: Decreased Activ Tolerance, Decreased UE Strength, Impaired Bed Mobility, Impaired Funct Balance, Impaired I ADL's, Impaired Self-Care Skills Pt would benefit from skilled OT services in order to increase independence in ADLs and functional mobility in order for pt to safely return home. Discharge Recommendations Plan/Recommendations: Continue POC Treatment Plan/Plan of Care Treatment,Training & Education: Yes Patient would benefit from OT for education, treatment and training to promote independence in ADL's, mobility, safety and/or upper extremity function for ADL's. Plan of Care: ADL Retraining, Caregiver Training, Functional Mobility, Group Exercise/Act as Ind, UE Funct Exercise/Act Treatment Duration: Dec 13, 2018 Frequency: At least 5 of 7 days/Wk (IRF) Estimated Hrs Per Day: 1.5 hours per day Agreement: Yes Rehab Potential: Good Time/GCodes Start Time: 09:30 Stop Time: 10:45 Total Time Billed (hr/min): 75 Billed Treatment Time 1 ADL 3 (60), EX 2 (15) GAUDENCIO VALENZUELA OTR Nov 27, 2018 12:19
--- NOTE | 2018-11-27 13:33 | Cardiology Progress Note ---
Cardiology SOAP Progress Note Subjective: No cardiac complaints. Objective: I&O/Vital Signs 11/27/18 11/27/18 05:29 09:41 Temp 36.9 Pulse 63 Resp 16 B/P (MAP) 120/67 Pulse Ox 97 94 O2 Delivery Room Air Room Air 11/27/18 00:00 Intake Total 780 ml Balance 780 ml Weight (Pounds): 168 Weight (Ounces): 11.2 Weight (Calculated Kilograms): 76.100058 Constitutional: appears stated age, AAO x 3; No apparent distress; well- developed, well-nourished Respiratory: No accessory muscle use, No respiratory distress, No chest tender, No chest expansion is symmetric; chest is bilaterally symmetric; No lungs clear to percussion; lungs clear to auscultation; No crackles, No rhonchi, No rales, No stridor, No wheezing, No pleural rub, No other Cardiovascular: regular rate-rhythm, S1 and S2, systolic murmur Gastrointestional: No tender; soft; No round, No distended, No pulsatile mass, No organomegaly, No guarding, No rebound, No tenderness, No hernia, No mass; audible bowel sounds; No abnormal bowel sounds, No abdominal bruits, No sple enomegaly, No other Extremities: normal inspection; No clubbing, No cyanosis; no lower extremity edema bilateral; No significant edema Neurologic/Psychiatric: no motor/sensory deficits, alert, normal mood/affect, oriented x 3, power is 5/5 both on sides Skin: normal color; No rash, No ulcerations A/P: Assessment/Dx: Hip fracture, hip surgery, paroxysmal Atrial fibrillation, COPD, obstructive sleep apnea, Hypertension, Hyperlipidemia, Systolic murmur Plan: Continue inpatient rehabilitation for hip fracture, hip surgery, paroxysmal Atrial fibrillation, Continue apixaban and carvedilol. EKG on 11/24/2018 shows sinus rhythm with left anterior fascicular block, right bundle branch block. Hypertension, continue carvedilol. Hyperlipidemia, continue statin therapy. Mild aortic stenosis. Follow clinically. COPD, stable. Obstructive sleep apnea, follow clinically. Thank you for your consultation. Please call me if you have any questions. Andrea Griffiths MD, FACP, FACC, FSCAI, FHRS, CCDS Interventional Cardiology Cardiac Electrophysiology Vascular Medicine and Endovascular Interventions José GRIFFITHS MD Nov 27, 2018 13:33
[2018-11-27 17:17] VITALS: BP 110/66
[2018-11-27] MEDS: FUROSEMIDE 20 MG (LASIX) TAB PO SCH (17:58)
[2018-11-27] MEDS: TAMSULOSIN 0.4 MG (FLOMAX) CAP PO SCH (20:13)
[2018-11-27] MEDS: ACETAMINOPHEN 500 MG TAB (TYLENOL) PO SCH (20:13)
[2018-11-28] MEDS: IRON POLYSAC 150 MG CAP (NIFEREX) PO SCH ×2 (06:20→17:53)
[2018-11-28] MEDS: PANTOPRAZOLE 40 MG (PROTONIX) TAB PO SCH (06:20)
[2018-11-28] MEDS: MULTIVIT W/MINERALS TAB (THERAGRAN M) PO SCH (06:20)
[2018-11-28 06:30] VITALS: BP 145/63
[2018-11-28] MEDS: RT-ADVAIR HFA 45/21 MCG PER PUFF IH SCH ×2 (07:31→18:55)
--- NOTE | 2018-11-28 07:50 | Progress Note ---
HARSHIL CAMARILLO [facility] 11/28/18 0750: Subjective Date Seen by a Provider: Nov 28, 2018 Time Seen by a Provider: 07:15 Subjective/Events-last exam Vitals are stable and normal. Slept well last night. Eating and drinking well. PT/OT going well. Less pain with ambulation. Burning sensation is decreasing daily. Voiding and stooling fine. Joint stiffness in the feet. R LE edema with decreased ROM. ROS: +: n/a -: n/v/d, SOB/chest pain, syncope, HELMS, vertigo, fever, chills Objective Exam Last Set of Vital Signs Vital Signs Date Time Temp Pulse Resp B/P (MAP) Pulse Ox O2 Delivery O2 Flow Rate FiO2 11/28/18 07:32 94 Room Air 11/28/18 06:30 36.2 64 16 145/63 Capillary Refill : Less Than 3 Seconds I&O Intake and Output 11/28/18 00:00 Intake Total 1210 ml Balance 1210 ml Intake Oral 1210 ml # Voids 8 General: Alert, Oriented X3, Cooperative, No Acute Distress Lungs: Clear to Auscultation, Normal Air Movement Heart: Regular Rate, No Murmurs Abdomen: No Tenderness Assessment/Plan Assessment/Plan Assess & Plan/Chief Complaint 1. Right ANNIKA 2. Burning sensation in the R Hip 1. PT/OT 2. Pain medication Clinical Quality Measures DVT/VTE Risk/Contraindication: Risk Factor Score Per Nursin RFS Level Per Nursing on Admit: 4+=Very High NOHELIA ADEN DO 11/29/18 1058: Supervisory-Addendum Brief Verification & Attestation Participated in pt care: history, MDM, physical Personally performed: exam, history, MDM, supervision of care Care discussed with: Medical Student Procedures: n/a Results interpretation: Verified all documentation Verification and Attestation of Medical Student E/M Service A medical student performed and documented this service in my presence. I reviewed and verified all information documented by the medical student and made modifications to such information, when appropriate. I personally performed the physical exam and medical decision making. Nohelia Aden, Nov 29, 2018,10:58 SARAHHARSHIL KIMBROUGH [facility] Nov 28, 2018 07:50 NOHELIA ADEN DO Nov 29, 2018 10:58
[2018-11-28] MEDS: ZINC SULFATE 220 MG CAPSULE PO SCH (07:59)
[2018-11-28] MEDS: SENNA W/DOCUSATE (SENOKOT S) TABLET PO SCH ×2 (07:59→21:56)
[2018-11-28] MEDS: APIXABAN 2.5 MG (ELIQUIS) TABLET PO SCH ×2 (07:59→21:56)
[2018-11-28] MEDS: CARVEDILOL 6.25 MG (COREG) TAB PO SCH ×2 (07:59→21:55)
[2018-11-28] MEDS: ALLOPURINOL 300 MG (ZYLOPRIM) TAB PO SCH (07:59)
[2018-11-28] MEDS: VITAMIN D3 1,000 UNITS (CHOLECALCIFEROL) TABLET PO SCH (07:59)
[2018-11-28] MEDS: OMEGA 3 (FISH OIL) 1000 MG CAP PO SCH (07:59)
[2018-11-28] MEDS: ARTIFICAL TEARS 0.4 ML UNIT DOSE (REFRESH PLUS) OU SCH ×2 (07:59→21:56)
--- NOTE | 2018-11-28 09:34 | PM&R Progress Note ---
Subjective HPI/CC On Admission Date Seen by Provider: Nov 28, 2018 Time Seen by Provider: 09:00 CC: Debility following right hip replacement uncomplicated by Dr Nickerson POD # 3 HPI: This is an 83yoWM clinic pt of Dr. Ramirez in [place] who presented to the inpatient rehab following an uncomplicated right total hip replacement after her failed conservative treatment. He has a history of AF and sees Dr. Vera cardiology for that but has had significant weakness prior to sx and subsequent to surgery so he was found to meet criteria for inpatient rehab and has some sig nificant problems with urinary retention maintained on Marley catheter since unable to urinate the night of surgery. At this current time pt remains stable, hgb slightly low at 8.8 his AF has done well after an atrial fibrillation episode in the OR but remains in normal sinus rhythm now. He has had 3 bowel movements this morning before leaving [facility] in [place]. He will return home at OR. His prior level of functioning was use of assistive devices and fairly independent with ADLs. He has been for 49 years. Subjective/Events-last exam Doing very well. BP is perfect at 120/60. Right lower extremity edema is being managed with ambulation and PT. Incision burning is much improved. Set for discharge sometime next week. Pain is well controlled Overall feels much better Conferred with RN Reviewed therapy notes Check meds and labs Review of Systems General: Fatigue Musculoskeletal: leg pain Objective Exam Vital Signs Vital Signs Date Time Temp Pulse Resp B/P (MAP) Pulse Ox O2 Delivery O2 Flow Rate FiO2 11/29/18 09:33 71 124/51 11/29/18 07:26 96 Room Air 11/29/18 06:01 37.2 16 Capillary Refill : Less Than 3 Seconds General Appearance: No Apparent Distress, WD/WN, Chronically ill HEENT: PERRL/EOMI, Normal ENT Inspection, Pharynx Normal, Moist Mucous Membranes Neck: Full Range of Motion, Normal Inspection, Non Tender, Supple Respiratory: Chest Non Tender, Lungs Clear, Normal Breath Sounds, No Accessory Muscle Use, No Respiratory Distress Cardiovascular: Regular Rate, Rhythm, No Edema, No Gallop, No JVD, Systolic Murmur Gastrointestinal: Normal Bowel Sounds, No Organomegaly, No Pulsatile Mass, Non Tender, Soft Back: Normal Inspection, No CVA Tenderness, No Vertebral Tenderness Extremity: Normal Capillary Refill, Normal Inspection, Normal Range of Motion (except right leg), Non Tender, No Calf Tenderness, No Pedal Edema Neurologic/Psychiatric: Alert, Oriented x3, No Motor/Sensory Deficits, Normal Mood/Affect Skin: Normal Color, Warm/Dry Lymphatic: No Adenopathy Results/Procedures Lab Patient resulted labs reviewed. FIM Transfers Therapy Code Descriptions/Definitions Functional [place] Measure: 0=Not Assessed/NA 4=Minimal Assistance 1=Total Assistance 5=Supervision or Setup 2=Maximal Assistance 6=Modified [place] 3=Moderate Assistance 7=Complete [place] Therapy Quality Codes: 6 Independent with activity with or without an assistive device 5 Patient requires set up or clean up by helper. Patient completes activity by themselves 4 Supervision or touching assist (CGA). [place] provide cues , steadying assist 3 The helper provides less than half the effort to complete the activity 2 The helper provides more than half the effort to complete the activity 1 Dependent. The helper does all the effort to complete an activity 7 Patient refused to complete or attempt activity 9 The patient did not perform the activity before the current illness or injury 88 Not attempted due to Medical conditions or safety concerns Transfers (B, C, W/C) (FIM): 4 (assist with LLE during bed mobility) Scootin Rollin Roll Left to Right (QC): 3 Supine to/from Sit: 4 Sit to/from Stand: 5 Sit to Lying (QC): 4 Sit to Stand (QC): 5 Chair/Iyv-cf-Vokbs Xfer(QC): 4 Bed to/from Chair: 5 Car Transfer (QC): 4 Gait Training Does the Patient Walk?: Yes Gait (FIM): 5 Distance (FIM): 3=150 ft Distance: 300 x3 Walk 10 feet (QC): 5 Walk 50 ft with 2 Turns(QC): 5 Walk 150 ft (QC): 5 Walking 10ft/uneven surface-QC: 4 Gait Level of Assist: 5 (SBA with skilled verb inst for technique and gait quality) Gait Persons Needed: 1 (did utilize rehab nurse to follow with w/c due to plan on increasing gait distance and gait outside on uneven surfaces, ets) Gait Assistive Device: FWW Wheelchair Training Does the Pt Use a Wheelchair?: No Stair Training Stair Training: Handrails/: 2 handrails Stairs (FIM): 2 #of Steps: 3 (ascend and descend) 1 Step (curb) (QC): 4 4 Steps (QC): 4 12 Steps (QC): 88 Stairs: Pattern: Step to (able to follow skilled instruction for safety and technique) Level of Assist: 4 (CGA provided) Balance Picking up an Object (QC): 88 (contraindicated) Mental Status/Objective Comprehension: 6 Expression: 6 Social Interaction: 7 Problem Solvin Memory: 4 ADL-Treatment Feedin Eating (QC): 6 Groomin (At sink with increased time for hair grooming with FWW for functional balance.) Oral Hygiene (QC): 6 (increased time and use of FWW during standing) Bathin (Required assist for back and feet during sponge bath. Pt able to wash feet with wash cloth wrapped around long handled sponge, pt asked for more thorough cleaning. Pt able to dry all areas.) Bathing Location: L Arm, R Arm, L Upper Leg, R Upper Leg, L Lower Leg (including foot), Chest, Abdomen, Buttocks, Perineal Area Shower/Bathe Self (QC): 3 Upper Extremity Dressin (Gathered clothing. Completed UB dressing while sitting) Upper Body Dressing (QC): 6 Lower Extremity Dressin (Min A for threading RLE within pants. Pt requested no breif on at this time.) Lower Body Dressing (QC): 3 On/Off Footwear (QC): 5 (s/u for threading sock onto sock cortez. Pt completed with increased ind on this date. Completed R LE with sock [place], completed L LE with IND.) Toiletin (SBA) Toileting Hygiene (QC): 5 Toilet/Commode Transfer: 5 (SBA for safety) Toilet Transfer (QC): 4 (SBA) Tub: 5 (SBA) Shower: 4 (CGA in/out of shower using grab bars.) Assessment/Plan Assessment and Plan Assess & Plan/Chief Complaint Assessment: Right hip replacement POD # 9 Urinary retention now resolved and voiding well thanks to Dr Arroyo CRI stable at 1.38 HTN AF Murmur of type ECHO pending Post op anemia no indication for transfusions GERD Gout Plan: Dr Arroyo and Dr Griffiths appreciated Monitor hgb and creat Eliquis IRF protocol Urination monitored and improved DC planning for future for home with HH (1) Status post right hip replacement Status: Acute (2) Atrial fibrillation Status: Chronic Qualifiers: Atrial fibrillation type: paroxysmal Qualified Codes: I48.0 - Paroxysmal atrial fibrillation (3) Urinary retention Status: Acute (4) Gout Status: Chronic Qualifiers: Gout site: unspecified site Gout etiology: unspecified cause Chronicity: unspecified Qualified Codes: M10.9 - Gout, unspecified (5) CAD (coronary artery disease) Status: Chronic Qualifiers: Coronary Disease-Associated Artery/Lesion type: [place] artery [place] vs. transplanted heart: [place] heart Associated angina: without angina Qualified Codes: I25.10 - Atherosclerotic heart disease of [place] coronary artery without angina pectoris (6) Hyperlipemia Status: Chronic Qualifiers: Hyperlipidemia type: mixed hyperlipidemia Qualified Codes: E78.2 - Mixed hyperlipidemia (7) Murmur Status: Chronic (8) Osteoarthritis Status: Chronic Qualifiers: Osteoarthritis location: unspecified site Osteoarthritis type: unspecified Qualified Codes: M19.90 - Unspecified osteoarthritis, unspecified site (9) GERD (gastroesophageal reflux disease) Status: Chronic Qualifiers: Esophagitis presence: without esophagitis Qualified Codes: K21.9 - Gastro- esophageal reflux disease without esophagitis (10) Hypertension Status: Chronic Qualifiers: Hypertension type: essential hypertension Qualified Codes: I10 - Essential (primary) hypertension (11) Valvular heart disease Status: Chronic (12) Postoperative anemia Status: Acute (13) Marley catheter in place Status: Acute (14) Advanced age Status: Chronic SHAWNA ADEN DO Nov 28, 2018 09:34
--- NOTE | 2018-11-28 10:45 | Speech Therapy Daily Note ---
Speech Daily Progress Note Subjective Date Seen by Provider: Nov 28, 2018 Time Seen by Provider: 00:30 The patient was resting in his bed watching television when I entered his room. Objective The patient was able to complete a series of cards by placing them in the correct sequence for scenarios he may encounter at home with 85% given minimal cues. Assessment Assessment Current Status: Good Progress Treatment Plan Continue Plan of Care Communication Comprehension: 6 Expression: 6 Social Cognition Social Interaction: 7 Problem Solvin Memory: 4 Speech Short Term Goals Short Term Goals Short Term Goals 1) The patient will complete memory tasks with 90% or greater accuracy given minimal cues. 2) The patient will complete problem solving tasks with 90% or greater accuracy given minimal cues. 3) The patient will complete safety awareness tasks with 90% or greater accuracy given minimal cues. Speech Clinical Science Liaison Goals Clinical Science Liaison Goals The patient will improve his cognitive level of function so that he may return home safely. Speech-Plan Patient/Family Goals Patient/Family Goals: The patient is discharging home next week with his and other family for support as needed. Treatment Plan Speech Therapy Treatment Plan: Continue Plan of Care The patient continues to progress well with ST goals. Treatment Duration: Dec 04, 2018 Frequency: 5 times per week Estimated Hrs Per Day: .5 hour per day Rehab Potential: Good Barriers to Learning: Patient has mild cognitive deficits, however these appear to be resolving. Pt/Family Agrees to Plan: Yes Safety Risks/Education Teaching Recipient: Patient Teaching Methods: Demonstration, Discussion Response to Teaching: Verbalize Understanding, Return Demonstration Education Topics Provided: Continued safety upon his return home. Time Speech Therapy Time In: 09:00 Speech Therapy Time Out: 09:30 Total Billed Time: 30 Billed Treatment Time 1, TATA Miles Nov 28, 2018 10:45
--- NOTE | 2018-11-28 11:08 | Occupational Ther Daily Note ---
OT Current Status-Daily Note Subjective Pt seen awake, supine in bed. Pt agreeable to OT tx session, no c/o pain. Mental Status/Objective Patient Orientation: Normal For Age Therapy Code Descriptions/Definitions Functional [place] Measure: 0=Not Assessed/NA 4=Minimal Assistance 1=Total Assistance 5=Supervision or Setup 2=Maximal Assistance 6=Modified [place] 3=Moderate Assistance 7=Complete [place] ADL-Treatment Therapy Code Descriptions/Definitions Functional [place] Measure: 0=Not Assessed/NA 4=Minimal Assistance 1=Total Assistance 5=Supervision or Setup 2=Maximal Assistance 6=Modified [place] 3=Moderate Assistance 7=Complete [place] Therapy Quality Codes: 6 Independent with activity with or without an assistive device 5 Patient requires set up or clean up by helper. Patient completes activity by themselves 4 Supervision or touching assist (CGA). [place] provide cues , steadying assist 3 The helper provides less than half the effort to complete the activity 2 The helper provides more than half the effort to complete the activity 1 Dependent. The helper does all the effort to complete an activity 7 Patient refused to complete or attempt activity 9 The patient did not perform the activity before the current illness or injury 88 Not attempted due to Medical conditions or safety concerns Grooming (FIM): 5 (SUP due to safety, pt completed hair grooming, deodorant application without assist) Bathing (FIM): 4 (min A RLE washing, pt required SBA for standing while washing toro area for safety. Pt utilized tub bench during bathing ) Shower/Bathe Self (QC): 3 Upper Body (FIM): 6 (completed sitting on bath chair) Upper Body Dressing (QC): 6 Lower Body Dressing (FIM): 4 (min A for threading RLE into pants. Pt able to thread undergarments with front desk monitor onto RLE. Pt completed LLE dressing with increased time on tub bench.) Lower Body Dressing (QC): 3 On/Off Footwear (QC): 5 (Pt required s/u for sock cortez due to large size and threading sock over cortez for R LE, able to copmlete sock donning after s/u. Pt able to complete LLE IND) Transfers (B, C, W/C) (FIM): 5 (SBA: pt completed bed mobility and sit to stand transfers with SBA) Shower Transfer(FIM): 5 (SBA for shower transfer ) Other Treatment Pt completed shower on this date. Pt denied use of leg major gifts manager for bed mob, completed with increased time and SBA. pt demonstrated good safety awareness during sit to stand and walking. Pt required cues for pursed lip breathing due to SOB. Pt return demonstrated. Post-dressing, pt stood at sink for ~5 minutes with SUP and FWW for safety with good endurance. Pt sat EOB and completed balloon batting, demonstrating good sitting endurance and able to self-correct. Pt completed UE reaching in all planes, able to complete with good direction- following. Pt completed sit to supine with SUP, no c/o pain during bed mobility. Pt left with PT in room, all needs met. Education OT Patient Education: Correct positioning, Energy conservation, Modified ADL techniques, Purpose of tx/functional activities, Safety issues, Transfer techniques Teaching Recipient: Patient Teaching Methods: Demonstration, Discussion Response to Teaching: Verbalize Understanding, Return Demonstration OT Short Term Goals Short Term Goals Time Frame: Dec 04, 2018 Grooming(FIM): 5 Bathing(FIM): 4 Bathing Location: L Arm, R Arm, L Upper Leg, R Upper Leg, Chest, Abdomen, Buttocks, Perineal Area Upper Body Dressing(FIM): 5 (met) Lower Body Dressing(FIM): 5 Toileting(FIM): 5 (met) Transfers (B,C,W/C) (FIM): 5 (met) Toilet/Commode Transfer(FIM): 5 (met) Shower Transfer(FIM): 4 (met) 1=Demonstrate adherence to instructed precautions during ADL tasks. 2=Patient will verbalize/demonstrate understanding of assistive devices/modifications for ADL. 3=Patient will improve strength/tolerance for activity to enable patient to perform ADL's. OT Wire Hanger Goals Retirement Goals Time Frame: Dec 13, 2018 Eating (FIM): 7 Eating (QC): 6 Groomin Oral Hygiene (QC): 6 Bathing(FIM): 5 Bathing Location: L Arm, R Arm, L Upper Leg, R Upper Leg, L Lower Leg (including foot), R Lower Leg (including foot), Chest, Abdomen, Buttocks, Perineal Area Shower/Bathe Self (QC): 5 Upper Body Dressing(FIM): 6 Upper Body Dressing (QC): 6 Lower Body Dressing(FIM): 6 Lower Body Dressing (QC): 6 On/Off Footwear (QC): 6 Toileting(FIM): 6 Toileting Hygiene (QC): 6 Transfers (B,C,W/C) (FIM): 6 Toilet/Commode Transfer(FIM): 6 Toilet/Commode Transfer (QC): 6 Shower Transfer(FIM): 5 Additional Goals: 1-Demonstrate ADL Tasks, 2-Verbalize Understanding, 3- ImproveStrength/Lizet 1=Demonstrate adherence to instructed precautions during ADL tasks. 2=Patient will verbalize/demonstrate understanding of assistive devices/modifications for ADL. 3=Patient will improve strength/tolerance for activity to enable patient to perform ADL's. OT Education/Plan Problem List/Assessment Assessment: Decreased Activ Tolerance, Decreased UE Strength, Impaired Funct Balance, Impaired I ADL's, Impaired Self-Care Skills Pt would benefit from skilled OT services in order to increase independence in ADLs and functional mobility in order for pt to safely return home. Discharge Recommendations Plan/Recommendations: Continue POC Treatment Plan/Plan of Care Treatment,Training & Education: Yes Patient would benefit from OT for education, treatment and training to promote independence in ADL's, mobility, safety and/or upper extremity function for ADL's. Plan of Care: ADL Retraining, Caregiver Training, Functional Mobility, Group Exercise/Act as Ind, UE Funct Exercise/Act Treatment Duration: Dec 13, 2018 Frequency: At least 5 of 7 days/Wk (IRF) Estimated Hrs Per Day: 1.5 hours per day Agreement: Yes Rehab Potential: Good Time/GCodes Start Time: 10:15 Stop Time: 11:00 Total Time Billed (hr/min): 45 Billed Treatment Time 1, ADL 2 (30), EX (15) GAUDENCIO VALENZUELA OTR Nov 28, 2018 11:08
--- NOTE | 2018-11-28 11:29 | Occupational Ther Daily Note ---
OT Current Status-Daily Note Subjective Pt seen in bed. Father present at this date. Pt's father stated pt was very tired, had anxiety last night. Pt agreeable to OT tx session and sat EOB. Pt c/o stiffness in neck. Mental Status/Objective Patient Orientation: Normal For Age Therapy Code Descriptions/Definitions Functional [place] Measure: 0=Not Assessed/NA 4=Minimal Assistance 1=Total Assistance 5=Supervision or Setup 2=Maximal Assistance 6=Modified [place] 3=Moderate Assistance 7=Complete [place] ADL-Treatment Therapy Code Descriptions/Definitions Functional [place] Measure: 0=Not Assessed/NA 4=Minimal Assistance 1=Total Assistance 5=Supervision or Setup 2=Maximal Assistance 6=Modified [place] 3=Moderate Assistance 7=Complete [place] Therapy Quality Codes: 6 Independent with activity with or without an assistive device 5 Patient requires set up or clean up by helper. Patient completes activity by themselves 4 Supervision or touching assist (CGA). [place] provide cues , steadying assist 3 The helper provides less than half the effort to complete the activity 2 The helper provides more than half the effort to complete the activity 1 Dependent. The helper does all the effort to complete an activity 7 Patient refused to complete or attempt activity 9 The patient did not perform the activity before the current illness or injury 88 Not attempted due to Medical conditions or safety concerns Eating (FIM): 7 Eating (QC): 6 Grooming (FIM): 6 (use of FWW during hair grooming and hand hygiene at sink) Oral Hygiene (QC): 6 (mod I use of FWW) Toileting (FIM): 5 (SUP for safety due to stated weakness on this date.) Toileting Hygiene (QC): 7 Transfers (B, C, W/C) (FIM): 4 (min A LLE in bed mob, SUP sit to stand ) Toilet/Commode Transfer (FIM): 5 (SUP) Toilet Transfer (QC): 4 (SUP due to weakness on this date.) Other Treatment Pt stated she had anxiety attack within the night, did not sleep well until anxiety medication provided. Pt stated she is unsure of the reason of anxiety, as she "was fine yesterday." pt stated her heart was racing and felt like her lungs were not working. pt educated on pursed lip breathing, return- demonstrated. Pt completed neck and upper back stretching due to "knot" still in upper back. Pt's father expresses concern of anxiety and tension in back. Pt's father educated on plans of tx session and tension-relieving activities. Pt agr eed to go outside for fresh air, utilized FWW for walking and w/c follows as pt stated feelings of weakness. Pt completed walking with good safety awareness across multiple terrains. Pt walked into [employer], able to navigate surrounding. Pt's father educated on rest breaks and finding availability within the community if needed. Pt sat in chair outside with SBA, completed cognitive card game. Pt expresses she is "fine today," and is ready for day pass. Pt states she plans to "go home" (friends' house) and does not plan to go anywhere else. Pt returns to room, sits in recliner chair. Pt begins eating breakfast. Hot pack applied to upper back with towels, removed 20 minutes later and no redness noted. Pt remained in chair, call light in reach and all needs met. Education OT Patient Education: Correct positioning, Energy conservation, Exercise program, Instructions to caregiver, Progress toward Goal/Update tx plan, Rehab process, Safety issues Teaching Recipient: Patient, Family Teaching Methods: Demonstration, Discussion Response to Teaching: Verbalize Understanding, Return Demonstration OT Short Term Goals Short Term Goals Time Frame: Dec 04, 2018 Grooming(FIM): 5 Bathing(FIM): 4 Bathing Location: L Arm, R Arm, L Upper Leg, R Upper Leg, Chest, Abdomen, Buttocks, Perineal Area Upper Body Dressing(FIM): 5 (met) Lower Body Dressing(FIM): 5 Toileting(FIM): 5 (met) Transfers (B,C,W/C) (FIM): 5 (met) Toilet/Commode Transfer(FIM): 5 (met) Shower Transfer(FIM): 4 (met) 1=Demonstrate adherence to instructed precautions during ADL tasks. 2=Patient will verbalize/demonstrate understanding of assistive devices/modifications for ADL. 3=Patient will improve strength/tolerance for activity to enable patient to perform ADL's. OT Nursing Home Goals Nursing Home Goals Time Frame: Dec 13, 2018 Eating (FIM): 7 Eating (QC): 6 Groomin Oral Hygiene (QC): 6 Bathing(FIM): 5 Bathing Location: L Arm, R Arm, L Upper Leg, R Upper Leg, L Lower Leg (including foot), R Lower Leg (including foot), Chest, Abdomen, Buttocks, Per ineal Area Shower/Bathe Self (QC): 5 Upper Body Dressing(FIM): 6 Upper Body Dressing (QC): 6 Lower Body Dressing(FIM): 6 Lower Body Dressing (QC): 6 On/Off Footwear (QC): 6 Toileting(FIM): 6 Toileting Hygiene (QC): 6 Transfers (B,C,W/C) (FIM): 6 Toilet/Commode Transfer(FIM): 6 Toilet/Commode Transfer (QC): 6 Shower Transfer(FIM): 5 Additional Goals: 1-Demonstrate ADL Tasks, 2-Verbalize Understanding, 3- ImproveStrength/Lizet 1=Demonstrate adherence to instructed precautions during ADL tasks. 2=Patient will verbalize/demonstrate understanding of assistive devices/modifications for ADL. 3=Patient will improve strength/tolerance for activity to enable patient to perform ADL's. OT Education/Plan Problem List/Assessment Assessment: Decreased Activ Tolerance, Impaired I ADL's, Impaired Self-Care Skills Pt would benefit from skilled OT services in order to increase independence in ADLs and functional mobility in order for pt to safely return home. Discharge Recommendations Plan/Recommendations: Continue POC Treatment Plan/Plan of Care Treatment,Training & Education: Yes Patient would benefit from OT for education, treatment and training to promote independence in ADL's, mobility, safety and/or upper extremity function for ADL's. Plan of Care: ADL Retraining, Caregiver Training, Functional Mobility, Group Exercise/Act as Ind, UE Funct Exercise/Act Treatment Duration: Dec 13, 2018 Frequency: At least 5 of 7 days/Wk (IRF) Estimated Hrs Per Day: 1.5 hours per day Agreement: Yes Rehab Potential: Good Time/GCodes Start Time: 09:00 Stop Time: 10:00 Total Time Billed (hr/min): 60 Billed Treatment Time 1 ADL (15), EX (15), FA (30) GAUDENCIO VALENZUELA OTR Nov 28, 2018 11:29
--- NOTE | 2018-11-28 12:03 | Physical Therapy Daily Note ---
PT Daily Note-Current Subjective Pt agreeable to PT session. No new c/o's Pain Numeric Pain Scale: 4 Comment: R hip, denies need for pain med Appearance Upon arrival, pt in bed, awake and alert, nursing present. Pt requesting and assisted to restroom during session. At end of session, pt in bed, per pt request due to chair is too uncomfortable, call light, phone and bedside table w ithin reach Mental Status Patient Orientation: Person, Place, Time, Eyes Open, Situation Transfers Therapy Code Descriptions/Definitions Functional [place] Measure: 0=Not Assessed/NA 4=Minimal Assistance 1=Total Assistance 5=Supervision or Setup 2=Maximal Assistance 6=Modified [place] 3=Moderate Assistance 7=Complete [place] Therapy Quality Codes: 6 Independent with activity with or without an assistive device 5 Patient requires set up or clean up by helper. Patient completes activity by themselves 4 Supervision or touching assist (CGA). [place] provide cues , steadying assist 3 The helper provides less than half the effort to complete the activity 2 The helper provides more than half the effort to complete the activity 1 Dependent. The helper does all the effort to complete an activity 7 Patient refused to complete or attempt activity 9 The patient did not perform the activity before the current illness or injury 88 Not attempted due to Medical conditions or safety concerns Transfers (B, C, W/C) (FIM): 5 Scootin (use of bedrails) Rollin (use of bedrails) Supine to/from Sit: 5 (HOB slightly elevated as he does at home) Sit to/from Stand: 5 (safe and correct hand placement) Weight Bearing Right Lower Extremity: Right Weight Bearing/Tolerated Left Lower Extremity: Left Full Weight Bearing Gait Training Does the Patient Walk?: Yes Gait (FIM): 5 Distance (FIM): 3=150 ft Distance: 600, 300 Gait Level of Assist: 5 (SBA) Gait Persons Needed: 1 Gait Assistive Device: FWW GT indoor and outdoor, even and uneven surfaces, through doorways and elevators, ascending and descending ramp. Pt following skilled verb inst to increase step length and height, continues with antalgic gait, decreased WB LLE, relies heavily on FWW to take wt off LLE at times Exercises Seated Therapy Exercises: Ankle pumps, Sit to stand, Long arc quads, Hip flexion, Hip abd/add Seated Reps: 20 Standing: Heel/toe raises, 3 way Ex=Flex, Abd, Ext, Mini squats Standing Reps: 20 (performed on BLE's to encourage strength and increased WB LLE) Treatments bed mobility, transfers, safety, balance, education, strength, gait, activity tolerance, functional mobility, toileting Assessment Current Status: Good Progress PT Short Term Goals Short Term Goals Time Frame: Nov 29, 2018 Transfers (B,C,W/C) (FIM): 5 (met) Gait (FIM): 4 (met) Distance (FIM): 3=150 ft Gait Assistive Device: FWW PT Fdc Goals Wool Hat Hydraulicker Goals PT Fdc Goals Time Frame: Dec 06, 2018 Transfers (B,C,W/C) (FIM): 7 Sit to Lying (QC): 6 Lying-Sitting on Side/Bed(QC): 6 Sit to Stand (QC): 6 Rollin Roll Left to Right (QC): 6 Chair/[id number] Xfer(QC): 6 Car Transfer (QC): 6 Does the Patient Walk: Yes Gait (FIM): 6 Gait distance (FIM): 3=150 ft Walk 10 feet (QC): 6 Walk 10ft-Uneven Surface(QC): 6 Walk 50ft with 2 Turns (QC): 6 Walk 150 ft (QC): 6 Gait Assistive Device: FWW Does the Pt use WC or Scooter?: No Stairs (FIM): 5 # of Steps: 4 1 Step (curb) (QC): 6 4 Steps (QC): 6 12 Steps (QC): 9 Picking up an Object (QC): 88 PT Plan Treatment/Plan Treatment Plan: Continue Plan of Care Treatment Plan: Bed Mobility, Education, Functional Activity Lizet, Functional Strength, Group Therapy, Gait, Safety, Therapeutic Exercise, Transfers Treatment Duration: Dec 06, 2018 Frequency: At least 5 of 7 days/Wk (IRF) Estimated Hrs Per Day: 1.5 hours per day Patient and/or Family Agrees t: Yes Safety Risks/Education Patient Education: Gait Training, Transfer Techniques, Reviewed Use of Ice, Safety Issues Teaching Recipient: Patient Teaching Methods: Discussion Response to Teaching: Verbalize Understanding Time/GCodes Time In: 11 Time Out: 1145 Total Billed Treatment Time: 45 Total Billed Treatment 1 visit, GT x20m, EX x15m, FA x10m GENEVIEVE GARRETT ASSEMBLER FINGER BUFFS Nov 28, 2018 12:03
--- NOTE | 2018-11-28 13:22 | NUR ---
BUSINESS UNIT MANAGER met with patient to review team conference summary. As patient is performing gait with standby assistance, min assist for transfers and lower body dressing, but continues to have struggles with getting legs to bed, team has recommended continued therapies with tentative discharge date of . Team has also recommended home health services for PT and OT. Patient is agreeable to this plan. BUSINESS UNIT MANAGER will provide patient with home health provider choice for [facility].
--- NOTE | 2018-11-28 15:36 | Cardiology Progress Note ---
Cardiology SOAP Progress Note Subjective: no cardiac complaints. Objective: I&O/Vital Signs 11/28/18 11/28/18 11/28/18 11/28/18 06:30 07:32 09:00 11:19 Temp 36.2 Pulse 64 Resp 16 B/P (MAP) 145/63 Pulse Ox 97 94 O2 Delivery Room Air Room Air Room Air Room Air 11/28/18 00:00 Intake Total 560 ml Balance 560 ml Weight (Pounds): 168 Weight (Ounces): 11.2 Weight (Calculated Kilograms): [id number] Constitutional: appears stated age, AAO x 3; No apparent distress; well- developed, well-nourished Respiratory: No accessory muscle use, No respiratory distress, No chest tender, No chest expansion is symmetric; chest is bilaterally symmetric; No lungs clear to percussion; lungs clear to auscultation; No crackles, No rhonchi, No rales, No stridor, No wheezing, No pleural rub, No other Cardiovascular: regular rate-rhythm, S1 and S2, systolic murmur Gastrointestional: No tender; soft; No round, No distended, No pulsatile mass, No organomegaly, No guarding, No rebound, No tenderness, No hernia, No mass; audible bowel sounds; No abnormal bowel sounds, No abdominal bruits, No spleenomegaly, No other Extremities: normal inspection; No clubbing, No cyanosis; no lower extremity edema bilateral; No significant edema Neurologic/Psychiatric: no motor/sensory deficits, alert, normal mood/affect, oriented x 3, power is 5/5 both on sides Skin: normal color; No rash, No ulcerations A/P: Assessment/Dx: Hip fracture, hip surgery, paroxysmal Atrial fibrillation, COPD, obstructive sleep apnea, Hypertension, Hyperlipidemia, Systolic murmur Plan: Continue inpatient rehabilitation for hip fracture, hip surgery, paroxysmal Atrial fibrillation, Continue apixaban and carvedilol. EKG on 11/24/2018 shows sinus rhythm with left anterior fascicular block, right bundle branch block. Hypertension, continue carvedilol. Hyperlipidemia, continue statin therapy. Mild aortic stenosis. Follow clinically. COPD, stable. Obstructive sleep apnea, follow clinically. Thank you for your consultation. Please call me if you have any questions. Andrea Griffiths MD, FACP, FACC, FSCAI, FHRS, CCDS Interventional Cardiology Cardiac Electrophysiology Vascular Medicine and Endovascular Interventions José GRIFFITHS MD Nov 28, 2018 15:36
--- NOTE | 2018-11-28 15:37 | Therapy Group Daily Note ---
Therapy Daily Group Note Patient Education Topic Exercises Exercises LE Seated Exercise, UE Exercise Session Ratio (pt:therapist): 4:1 Goal of Session: UE/LE Strengthing Goal Met for this Session: Yes Pt Benefit of Group: Contributions to Others, F/U Use of Strategies @Home, Increased Functional Safety, Increased Functional Strength, Improved Cognition, Recognition of Peers, Socialization Other/Notes Pt ambulates using FWW to OT/PT group. Group consisted of introduction (name, place living, memory of 11/27), socialization, pt led UE/LE seated exercises and education on the benefits of exercise. Pt introduced self then actively listened to peers. Pt participated in conversations and contributed to educational topics. Pt effectively led exercises and completed each exercise to the best of pt's ability. After therapy, pt lying in bed with call light/phone in reach. All needs met in room. Start Time: 13:00 Stop Time: 14:10 Total Billed Treatment Time: 70 Total Billed Treatment 1, GRP DILLAN HUGGINS RETINAL ANGIOGRAPHER Nov 28, 2018 15:37
[2018-11-28 16:12] VITALS: BP 110/68
[2018-11-28] MEDS: FUROSEMIDE 20 MG (LASIX) TAB PO SCH (17:53)
[2018-11-28] MEDS: ACETAMINOPHEN 500 MG TAB (TYLENOL) PO SCH (21:55)
[2018-11-28] MEDS: TAMSULOSIN 0.4 MG (FLOMAX) CAP PO SCH (21:56)
[2018-11-29 06:01] VITALS: BP 120/55
[2018-11-29] MEDS: MULTIVIT W/MINERALS TAB (THERAGRAN M) PO SCH (06:37)
[2018-11-29] MEDS: IRON POLYSAC 150 MG CAP (NIFEREX) PO SCH ×2 (06:37→17:58)
[2018-11-29] MEDS: PANTOPRAZOLE 40 MG (PROTONIX) TAB PO SCH (06:37)
[2018-11-29] MEDS: RT-ADVAIR HFA 45/21 MCG PER PUFF IH SCH ×2 (07:26→19:40)
--- NOTE | 2018-11-29 08:56 | Physical Therapy Daily Note ---
PT Daily Note-Current Subjective Patient in bed pre tx, agrees to PT, has pain of 4/10 in right hip. Appearance Patient BTB post tx with nurse call, phone, tray, all needs met. Mental Status Patient Orientation: Person, Place, Situation Transfers Therapy Code Descriptions/Definitions Functional [place] Measure: 0=Not Assessed/NA 4=Minimal Assistance 1=Total Assistance 5=Supervision or Setup 2=Maximal Assistance 6=Modified [place] 3=Moderate Assistance 7=Complete [place] Therapy Quality Codes: 6 Independent with activity with or without an assistive device 5 Patient requires set up or clean up by helper. Patient completes activity by themselves 4 Supervision or touching assist (CGA). [place] provide cues , steadying assist 3 The helper provides less than half the effort to complete the activity 2 The helper provides more than half the effort to complete the activity 1 Dependent. The helper does all the effort to complete an activity 7 Patient refused to complete or attempt activity 9 The patient did not perform the activity before the current illness or injury 88 Not attempted due to Medical conditions or safety concerns Transfers (B, C, W/C) (FIM): 6 Scootin Rollin Supine to/from Sit: 6 Sit to/from Stand: 6 Bed to/from Chair: 6 Weight Bearing Right Lower Extremity: Right Weight Bearing/Tolerated Left Lower Extremity: Left Full Weight Bearing Gait Training Gait (FIM): 6 Distance: 600', 300' Gait Level of Assist: 6 Gait Assistive Device: FWW slow but steady ambulation, fair step-through Exercises Supine Ex: Ankle pumps, Quad Set, Glut sets, Short Arc Quads, Hip abd/add Supine Reps: 15 LAQ right side with 2# ankle weight for 5 min NuStep Minutes: 15 NuStep Workload: 4 Treatments LE exercise, bed mobility and transfers, ambulation Assessment Current Status: Fair Progress improving general mobility and endurance PT Short Term Goals Short Term Goals Time Frame: Nov 29, 2018 Transfers (B,C,W/C) (FIM): 5 (met) Gait (FIM): 4 (met) Distance (FIM): 3=150 ft Gait Assistive Device: FWW PT Beam Sealer Goals Group Home Goals PT Group Home Goals Time Frame: Dec 06, 2018 Transfers (B,C,W/C) (FIM): 7 Sit to Lying (QC): 6 Lying-Sitting on Side/Bed(QC): 6 Sit to Stand (QC): 6 Rollin (use of bedrails) Roll Left to Right (QC): 6 Chair/[id number]-[id number] Xfer(QC): 6 Car Transfer (QC): 6 Does the Patient Walk: Yes Gait (FIM): 6 Gait distance (FIM): 3=150 ft Walk 10 feet (QC): 6 Walk 10ft-Uneven Surface(QC): 6 Walk 50ft with 2 Turns (QC): 6 Walk 150 ft (QC): 6 Gait Assistive Device: FWW Does the Pt use WC or Scooter?: No Stairs (FIM): 5 # of Steps: 4 1 Step (curb) (QC): 6 4 Steps (QC): 6 12 Steps (QC): 9 Picking up an Object (QC): 88 PT Plan Problem List Problem List: Activity Tolerance, Functional Strength, Safety, Balance, Gait, Transfer, Bed Mobility, ROM Treatment/Plan Treatment Plan: Continue Plan of Care Treatment Plan: Bed Mobility, Education, Functional Activity Lizet, Functional Strength, Group Therapy, Gait, Safety, Therapeutic Exercise, Transfers Treatment Duration: Dec 06, 2018 Frequency: At least 5 of 7 days/Wk (IRF) Estimated Hrs Per Day: 1.5 hours per day Patient and/or Family Agrees t: Yes Safety Risks/Education Patient Education: Gait Training, Transfer Techniques, Correct Positioning, Saf ety Issues Teaching Recipient: Patient Teaching Methods: Demonstration, Discussion Response to Teaching: Reinforcement Needed Time/GCodes Time In: 0800 Time Out: 0900 Total Billed Treatment Time: 60 Total Billed Treatment 1 visit EX 30' FA 10' GT 20' LEANNE BERRY PT Nov 29, 2018 08:56
[2018-11-29 09:33] VITALS: BP 124/51
[2018-11-29] MEDS: ARTIFICAL TEARS 0.4 ML UNIT DOSE (REFRESH PLUS) OU SCH ×2 (09:34→20:57)
[2018-11-29] MEDS: APIXABAN 2.5 MG (ELIQUIS) TABLET PO SCH ×2 (09:34→20:57)
[2018-11-29] MEDS: VITAMIN D3 1,000 UNITS (CHOLECALCIFEROL) TABLET PO SCH (09:34)
[2018-11-29] MEDS: ALLOPURINOL 300 MG (ZYLOPRIM) TAB PO SCH (09:34)
[2018-11-29] MEDS: CARVEDILOL 6.25 MG (COREG) TAB PO SCH ×2 (09:34→20:57)
[2018-11-29] MEDS: ZINC SULFATE 220 MG CAPSULE PO SCH (09:34)
[2018-11-29] MEDS: OMEGA 3 (FISH OIL) 1000 MG CAP PO SCH (09:34)
[2018-11-29] MEDS: predniSONE 5 MG TAB PO SCH (09:34)
[2018-11-29] MEDS: SENNA W/DOCUSATE (SENOKOT S) TABLET PO SCH ×2 (09:46→21:02)
--- NOTE | 2018-11-29 11:20 | Occupational Ther Daily Note ---
OT Current Status-Daily Note Subjective Pt seen in bed, family members present. Familly members dismissed, pt agreeable to OT tx session stating 1/10 pain in R hip. Mental Status/Objective Patient Orientation: Normal For Age Therapy Code Descriptions/Definitions Functional [place] Measure: 0=Not Assessed/NA 4=Minimal Assistance 1=Total Assistance 5=Supervision or Setup 2=Maximal Assistance 6=Modified [place] 3=Moderate Assistance 7=Complete [place] ADL-Treatment Therapy Code Descriptions/Definitions Functional [place] Measure: 0=Not Assessed/NA 4=Minimal Assistance 1=Total Assistance 5=Supervision or Setup 2=Maximal Assistance 6=Modified [place] 3=Moderate Assistance 7=Complete [place] Therapy Quality Codes: 6 Independent with activity with or without an assistive device 5 Patient requires set up or clean up by helper. Patient completes activity by themselves 4 Supervision or touching assist (CGA). [place] provide cues , steadying assist 3 The helper provides less than half the effort to complete the activity 2 The helper provides more than half the effort to complete the activity 1 Dependent. The helper does all the effort to complete an activity 7 Patient refused to complete or attempt activity 9 The patient did not perform the activity before the current illness or injury 88 Not attempted due to Medical conditions or safety concerns Eating (FIM): 7 (Pt drinks coffee and water with IND) Eating (QC): 6 Grooming (FIM): 5 (SUP for safety) Oral Hygiene (QC): 5 (SUP for safety. Pt utilizes FWW at sink to complete) Upper Body (FIM): 6 (Pt completes with mod I sitting EOB) Upper Body Dressing (QC): 6 Lower Body Dressing (FIM): 4 (Pt requires cues for ability to complete activity. Pt declines sock aide, completes with min A for RLE sock donning. Pt complets LE dressing with increased time on EOB without AE.) Lower Body Dressing (QC): 3 On/Off Footwear (QC): 4 (Min A for starting thread of RLE sock ) Toileting (FIM): 6 (mod I toileting) Toileting Hygiene (QC): 6 (increased time) Transfers (B, C, W/C) (FIM): 4 (Pt requires assist for RLE during bed mob) Toilet/Commode Transfer (FIM): 5 Toilet Transfer (QC): 4 (SUP for safety) Other Treatment Pt educated on abilities and motions he can complete within comfort zone within ADL routine. Pt states understanding and return demonstrates. Pt educated of strengthening and endurance exercises for UE. Pt completes ADLs in room. Pt sit to stand with SUP. Pt utilizes FWW to navigate kitchen, able to complete coffee pouring. pt ambulates to room, sits EOB utilizes FWW. Pt completes 10 sets of 4 exercises in order to increase strength and endurance of UE. Pt returned to bed, pt requires lifitng assist for RLE for return to bed. Pt left with call light in reach and all needs met. Education OT Patient Education: Correct positioning, Energy conservation, Exercise program, Home exercise program, Modified ADL techniques, Rehab process, Safety issues, Transfer techniques Teaching Recipient: Patient Teaching Methods: Demonstration, Discussion Response to Teaching: Verbalize Understanding, Return Demonstration OT Short Term Goals Short Term Goals Time Frame: Dec 04, 2018 Grooming(FIM): 5 Bathing(FIM): 4 Bathing Location: L Arm, R Arm, L Upper Leg, R Upper Leg, Chest, Abdomen, Buttocks, Perineal Area Upper Body Dressing(FIM): 5 (met) Lower Body Dressing(FIM): 5 Toileting(FIM): 5 (met) Transfers (B,C,W/C) (FIM): 5 (met) Toilet/Commode Transfer(FIM): 5 (met) Shower Transfer(FIM): 4 (met) 1=Demonstrate adherence to instructed precautions during ADL tasks. 2=Patient will verbalize/demonstrate understanding of assistive devices/modifications for ADL. 3=Patient will improve strength/tolerance for activity to enable patient to perform ADL's. OT Underwriting Specialist Goals Underwriting Specialist Goals Time Frame: Dec 13, 2018 Eating (FIM): 7 (met) Eating (QC): 6 (met) Groomin Oral Hygiene (QC): 6 Bathing(FIM): 5 Bathing Location: L Arm, R Arm, L Upper Leg, R Upper Leg, L Lower Leg (including foot), R Lower Leg (including foot), Chest, Abdomen, Buttocks, Perineal Area Shower/Bathe Self (QC): 5 Upper Body Dressing(FIM): 6 (met) Upper Body Dressing (QC): 6 (met) Lower Body Dressing(FIM): 6 Lower Body Dressing (QC): 6 On/Off Footwear (QC): 6 Toileting(FIM): 6 Toileting Hygiene (QC): 6 Transfers (B,C,W/C) (FIM): 6 Toilet/Commode Transfer(FIM): 6 Toilet/Commode Transfer (QC): 6 Shower Transfer(FIM): 5 (met) Additional Goals: 1-Demonstrate ADL Tasks, 2-Verbalize Understanding, 3- ImproveStrength/[place]iz[place] 1=Demonstrate adherence to instructed precautions during ADL tasks. 2=Patient will verbalize/demonstrate understanding of assistive devices/modifications for ADL. 3=Patient will improve strength/tolerance for activity to enable patient to perform ADL's. OT Education/Plan Problem List/Assessment Assessment: Decreased Activ Tolerance, Decreased UE Strength, Impaired I ADL's, Impaired Self-Care Skills Pt would benefit from skilled OT services in order to increase independence in ADLs and functional mobility in order for pt to safely return home. Discharge Recommendations Plan/Recommendations: Continue POC Therapy Discharge Recommendati: Other, See Comments (hoem with family assist) Equpiment Recommendations-D/C: Dressing Stick Comment Pt utilizes dressing stick for pant/ sock doffing. Pt has declined use of clinical technician or sock aide, pt states can help in shower and declines use of long handled sponge. Treatment Plan/Plan of Care Treatment,Training & Education: Yes Patient would benefit from OT for education, treatment and training to promote independence in ADL's, mobility, safety and/or upper extremity function for ADL's. Plan of Care: ADL Retraining, Caregiver Training, Functional Mobility, Group Exercise/Act as Ind, UE Funct Exercise/Act Treatment Duration: Dec 13, 2018 Frequency: At least 5 of 7 days/Wk (IRF) Estimated Hrs Per Day: 1.5 hours per day Agreement: Yes Rehab Potential: Good Time/GCodes Start Time: 09:45 Stop Time: 10:30 Total Time Billed (hr/min): 45 Billed Treatment Time 1 ADL FA EX (45) GAUDENCIO VALENZUELA OTR Nov 29, 2018 11:20
--- NOTE | 2018-11-29 13:13 | Cardiology Progress Note ---
Cardiology SOAP Progress Note Subjective: no cardiac complaints. Objective: I&O/Vital Signs 11/30/18 11/30/18 06:09 07:11 Temp 36.1 Pulse 59 Resp 16 B/P (MAP) 124/66 Pulse Ox 93 95 O2 Delivery Room Air Room Air 11/30/18 00:00 Intake Total 1280 ml Balance 1280 ml Weight (Pounds): 168 Weight (Ounces): 11.2 Weight (Calculated Kilograms): 76.840024 Constitutional: appears stated age, AAO x 3; No apparent distress; well- developed, well-nourished Respiratory: No accessory muscle use, No respiratory distress, No chest tender, No chest expansion is symmetric; chest is bilaterally symmetric; No lungs clear to percussion; lungs clear to auscultation; No crackles, No rhonchi, No rales, No stridor, No wheezing, No pleural rub, No other Cardiovascular: regular rate-rhythm, S1 and S2, systolic murmur Gastrointestional: No tender; soft; No round, No distended, No pulsatile mass, No organomegaly, No guarding, No rebound, No tenderness, No hernia, No mass; audible bowel sounds; No abnormal bowel sounds, No abdominal bruits, No sp leenomegaly, No other Extremities: normal inspection; No clubbing, No cyanosis; no lower extremity edema bilateral; No significant edema Neurologic/Psychiatric: no motor/sensory deficits, alert, normal mood/affect, oriented x 3, power is 5/5 both on sides Skin: normal color; No rash, No ulcerations A/P: Assessment/Dx: Hip fracture, hip surgery, paroxysmal Atrial fibrillation, COPD, obstructive sleep apnea, Hypertension, Hyperlipidemia, Systolic murmur Plan: Continue inpatient rehabilitation for hip fracture, hip surgery, paroxysmal Atrial fibrillation, Continue apixaban and carvedilol. EKG on 11/24/2018 shows sinus rhythm with left anterior fascicular block, right bundle branch block. Hypertension, continue carvedilol. Hyperlipidemia, continue statin therapy. Mild aortic stenosis. Follow clinically. COPD, stable. Obstructive sleep apnea, follow clinically. Thank you for your consultation. Please call me if you have any questions. Andrea Griffiths MD, FACP, FACC, FSCAI, FHRS, CCDS Interventional Cardiology Cardiac Electrophysiology Vascular Medicine and Endovascular Interventions José GRIFFITHS MD Nov 29, 2018 13:13
--- NOTE | 2018-11-29 13:14 | Speech Therapy Daily Note ---
Speech Daily Progress Note Subjective Date Seen by Provider: Nov 29, 2018 Time Seen by Provider: 00:30 The patient was resting in his bed after completing his PT session. Patient states he isn't having much pain at all. Objective The patient completed problem solving questions related to his daily needs at 90% with minimal cues. Assessment Assessment Current Status: Good Progress Treatment Plan Continue Plan of Care Communication Comprehension: 6 Expression: 6 Social Cognition Social Interaction: 7 Problem Solvin Memory: 4 Speech Short Term Goals Short Term Goals Short Term Goals 1) The patient will complete memory tasks with 90% or greater accuracy given minimal cues. 2) The patient will complete problem solving tasks with 90% or greater accuracy given minimal cues. 3) The patient will complete safety awareness tasks with 90% or greater accuracy given minimal cues. Speech Geologist Petroleum Goals Geologist Petroleum Goals The patient will improve his cognitive level of function so that he may return home safely. Speech-Plan Patient/Family Goals Patient/Family Goals: The patient is scheduled to be discharged to his home where he lives with his . Treatment Plan Speech Therapy Treatment Plan: Continue Plan of Care The patient has made good progress as a result of skilled ST. Treatment Duration: Dec 04, 2018 Frequency: 5 times per week Estimated Hrs Per Day: .5 hour per day Rehab Potential: Good Barriers to Learning: Patient has mild cognitive, however these have mostly resolved. Pt/Family Agrees to Plan: Yes Safety Risks/Education Teaching Recipient: Patient Teaching Methods: Discussion Response to Teaching: Verbalize Understanding Education Topics Provided: Continued safety in his room and when he returns home. Time Speech Therapy Time In: 09:00 Speech Therapy Time Out: 09:30 Total Billed Time: 30 Billed Treatment Time 1, TATA Miles Nov 29, 2018 13:14
--- NOTE | 2018-11-29 14:32 | Therapy Group Daily Note ---
Therapy Daily Group Note Patient Education Topic Other List Below (causes of balanceissues and ways to manage) Exercises LE Seated Exercise, UE Exercise, Other (core) Session Ratio (pt:therapist): 4:1 Goal of Session: Other (list) (increased awareness of balance issues, causes and how to manage poor balance ie safty etc) Goal Met for this Session: Yes Pt Benefit of Group: Increased Functional Safety, Increased Functional Strength, Socialization Other/Notes Pt. participated in group PT OT session this date, Pt. ambulated to from with SBA. Pts introduced themselves and shared their names and some personal experiences with LOB. Education focused on causes of balance issues as well as strategies for improving balance and ways to be safer. Pts. all participated in U&L extremity seated ther ex as well as seated core exercises. Pt. to room after Rx with SBA, gabino at hand Start Time: 13:00 Stop Time: 14:10 Total Billed Treatment Time: 70 Total Billed Treatment 1,GRP MISSY GREGORY SPLITTER HAND Nov 29, 2018 14:32
--- NOTE | 2018-11-29 15:28 | PM&R Progress Note ---
Subjective HPI/CC On Admission Date Seen by Provider: Nov 29, 2018 Time Seen by Provider: 15:00 CC: Debility following right hip replacement uncomplicated by Dr Nickerson POD # 3 HPI: This is an 83yoWM clinic pt of Dr. Ramirez in [place] who presented to the inpatient rehab following an uncomplicated right total hip replacement after her failed conservative treatment. He has a history of AF and sees Dr. Vera cardiology for that but has had significant weakness prior to sx and subsequent to surgery so he was found to meet criteria for inpatient rehab and has some sig nificant problems with urinary retention maintained on Marley catheter since unable to urinate the night of surgery. At this current time pt remains stable, hgb slightly low at 8.8 his AF has done well after an atrial fibrillation episode in the OR but remains in normal sinus rhythm now. He has had 3 bowel movements this morning before leaving [facility] in [place]. He will [place] at [place]. His prior level of functioning was use of assistive devices and fairly independent with ADLs. He has been for 49 years. Subjective/Events-last exam Doing very well. BP is stable Right lower extremity edema is being managed with ambulation and PT. Right great toe gout attack is being managed with an additional dose of prednisone of 5 MG since he takes 2.5 daily Incision burning is much improved. Set for discharge sometime next week. Pain is well controlled Overall feels much better Conferred with RN Reviewed therapy notes Check meds and labs Review of Systems General: Fatigue Objective Exam Vital Signs Vital Signs Date Time Temp Pulse Resp B/P (MAP) Pulse Ox O2 Delivery O2 Flow Rate FiO2 11/29/18 09:33 71 124/51 11/29/18 09:00 Room Air 11/29/18 07:26 96 11/29/18 06:01 37.2 16 Capillary Refill : Less Than 3 Seconds General Appearance: No Apparent Distress, WD/WN, Chronically ill HEENT: PERRL/EOMI, Normal ENT Inspection, Pharynx Normal, Moist Mucous Membranes Neck: Full Range of Motion, Normal Inspection, Non Tender, Supple Respiratory: Chest Non Tender, Lungs Clear, Normal Breath Sounds, No Accessory Muscle Use, No Respiratory Distress Cardiovascular: Regular Rate, Rhythm, No Edema, No Gallop, No JVD, Systolic Murmur Gastrointestinal: Normal Bowel Sounds, No Organomegaly, No Pulsatile Mass, Non Tender, Soft Back: Normal Inspection, No CVA Tenderness, No Vertebral Tenderness Extremity: Normal Capillary Refill, Normal Inspection, Normal Range of Motion (except right leg), Non Tender, No Calf Tenderness, No Pedal Edema Neurologic/Psychiatric: Alert, Oriented x3, No Motor/Sensory Deficits, Normal Mood/Affect Skin: Normal Color, Warm/Dry Lymphatic: No Adenopathy Results/Procedures Lab Patient resulted labs reviewed. FIM Transfers Therapy Code Descriptions/Definitions Functional [place] Measure: 0=Not Assessed/NA 4=Minimal Assistance 1=Total Assistance 5=Supervision or Setup 2=Maximal Assistance 6=Modified [place] 3=Moderate Assistance 7=Complete [place] Therapy Quality Codes: 6 Independent with activity with or without an assistive device 5 Patient requires set up or clean up by helper. Patient completes activity by themselves 4 Supervision or touching assist (CGA). [place] provide cues , steadying assist 3 The helper provides less than half the effort to complete the activity 2 The helper provides more than half the effort to complete the activity 1 Dependent. The helper does all the effort to complete an activity 7 Patient refused to complete or attempt activity 9 The patient did not perform the activity before the current illness or injury 88 Not attempted due to Medical conditions or safety concerns Transfers (B, C, W/C) (FIM): 4 (Pt requires assist for RLE during bed mob) Scootin Rollin Roll Left to Right (QC): 3 Supine to/from Sit: 6 Sit to/from Stand: 6 Sit to Lying (QC): 4 Sit to Stand (QC): 5 Chair/[id number]-dp-Lcjly Xfer(QC): 4 Bed to/from Chair: 6 Car Transfer (QC): 4 Gait Training Does the Patient Walk?: Yes Gait (FIM): 6 Distance (FIM): 3=150 ft Distance: 600', 300' Walk 10 feet (QC): 5 Walk 50 ft with 2 Turns(QC): 5 Walk 150 ft (QC): 5 Walking 10ft/uneven surface-QC: 4 Gait Level of Assist: 6 Gait Persons Needed: 1 Gait Assistive Device: FWW Wheelchair Training Does the Pt Use a Wheelchair?: No Stair Training Stair Training: Handrails/: 2 handrails Stairs (FIM): 2 #of Steps: 3 (ascend and descend) 1 Step (curb) (QC): 4 4 Steps (QC): 4 12 Steps (QC): 88 Stairs: Pattern: Step to (able to follow skilled instruction for safety and technique) Level of Assist: 4 (CGA provided) Balance Picking up an Object (QC): 88 (contraindicated) Mental Status/Objective Comprehension: 6 Expression: 6 Social Interaction: 7 Problem Solvin Memory: 4 ADL-Treatment Feedin (Pt drinks coffee and water with IND) Eating (QC): 6 Groomin (SUP for safety) Oral Hygiene (QC): 5 (SUP for safety. Pt utilizes FWW at sink to complete) Bathin (min A RLE washing, pt required SBA for standing while washing toro area for safety. Pt utilized tub bench during bathing ) Bathing Location: L Arm, R Arm, L Upper Leg, R Upper Leg, L Lower Leg (including foot), Chest, Abdomen, Buttocks, Perineal Area Shower/Bathe Self (QC): 3 Upper Extremity Dressin (Pt completes with mod I sitting EOB) Upper Body Dressing (QC): 6 Lower Extremity Dressin (Pt requires cues for ability to complete activity. Pt declines sock aide, completes with min A for RLE sock donning. Pt complets LE dressing with increased time on EOB without AE.) Lower Body Dressing (QC): 3 On/Off Footwear (QC): 4 (Min A for starting thread of RLE sock ) Toiletin (mod I toileting) Toileting Hygiene (QC): 6 (increased time) Toilet/Commode Transfer: 5 Toilet Transfer (QC): 4 (SUP for safety) Tub: 5 (SBA) Shower: 5 (SBA for shower transfer ) Assessment/Plan Assessment and Plan Assess & Plan/Chief Complaint Assessment: Right hip replacement POD # 10 Urinary retention now resolved and voiding well thanks to Dr Arroyo CRI stable at 1.38 HTN AF Murmur of type ECHO pending Post op anemia no indication for transfusions GERD Gout with acute issue now Plan: Dr Arroyo and Dr Griffiths appreciated Monitor hgb and creat Eliquis IRF protocol Urination monitored and improved DC planning for future for home with HH Low dose prednisone 5mg now extra dose (1) Status post right hip replacement Status: Acute (2) Atrial fibrillation Status: Chronic Qualifiers: Atrial fibrillation type: paroxysmal Qualified Codes: I48.0 - Paroxysmal atrial fibrillation (3) Urinary retention Status: Acute (4) Gout Status: Chronic Qualifiers: Gout site: unspecified site Gout etiology: unspecified cause Chronicity: unspecified Qualified Codes: M10.9 - Gout, unspecified (5) CAD (coronary artery disease) Status: Chronic Qualifiers: Coronary Disease-Associated Artery/Lesion type: [place] artery [place] vs. transplanted heart: [place] heart Associated angina: without angina Qualified Codes: I25.10 - Atherosclerotic heart disease of [place] coronary artery without angina pectoris (6) Hyperlipemia Status: Chronic Qualifiers: Hyperlipidemia type: mixed hyperlipidemia Qualified Codes: E78.2 - Mixed hyperlipidemia (7) Murmur Status: Chronic (8) Osteoarthritis Status: Chronic Qualifiers: Osteoarthritis location: unspecified site Osteoarthritis type: unspecified Qualified Codes: M19.90 - Unspecified osteoarthritis, unspecified site (9) GERD (gastroesophageal reflux disease) Status: Chronic Qualifiers: Esophagitis presence: without esophagitis Qualified Codes: K21.9 - Gastro- esophageal reflux disease without esophagitis (10) Hypertension Status: Chronic Qualifiers: Hypertension type: essential hypertension Qualified Codes: I10 - Essential (primary) hypertension (11) Valvular heart disease Status: Chronic (12) Postoperative anemia Status: Acute (13) Marley catheter in place Status: Acute (14) Advanced age Status: Chronic SHAWNA ADEN DO Nov 29, 2018 15:28
[2018-11-29] MEDS ORDERED: predniSONE 5 MG TAB PO NR (16:45)
[2018-11-29 16:50] VITALS: BP 120/62
[2018-11-29] MEDS: FUROSEMIDE 20 MG (LASIX) TAB PO SCH (17:58)
--- NOTE | 2018-11-29 19:22 | NUR ---
bedside report received from RAIMUNDO HWANG, assume care of pt
[2018-11-29 20:55] VITALS: BP 146/65
[2018-11-29] MEDS: TAMSULOSIN 0.4 MG (FLOMAX) CAP PO SCH (20:57)
[2018-11-29] MEDS: ACETAMINOPHEN 500 MG TAB (TYLENOL) PO SCH (21:01)
--- NOTE | 2018-11-29 21:01 | NUR ---
pt recieves scheduled Tylenol 650mg reports pain level 2/10 on numeric scale, pt refused Senokot
--- NOTE | 2018-11-29 21:05 | NUR ---
assessments & interventions completed, see assessments & interventions
--- NOTE | 2018-11-29 21:45 | NUR ---
rates pain level 0/10 on numeric scale
[2018-11-30 06:09] VITALS: BP 124/66
[2018-11-30] MEDS: IRON POLYSAC 150 MG CAP (NIFEREX) PO SCH ×2 (06:35→18:38)
[2018-11-30] MEDS: PANTOPRAZOLE 40 MG (PROTONIX) TAB PO SCH (06:35)
[2018-11-30] MEDS: MULTIVIT W/MINERALS TAB (THERAGRAN M) PO SCH (06:35)
[2018-11-30] MEDS: RT-ADVAIR HFA 45/21 MCG PER PUFF IH SCH ×2 (07:11→20:04)
--- NOTE | 2018-11-30 07:24 | NUR ---
bedside report given to GENIE HWANG
--- NOTE | 2018-11-30 09:41 | Physical Therapy Daily Note ---
PT Daily Note-Current Subjective States that he is doing okay. Transfers Therapy Code Descriptions/Definitions Functional [place] Measure: 0=Not Assessed/NA 4=Minimal Assistance 1=Total Assistance 5=Supervision or Setup 2=Maximal Assistance 6=Modified [place] 3=Moderate Assistance 7=Complete [place] Therapy Quality Codes: 6 Independent with activity with or without an assistive device 5 Patient requires set up or clean up by helper. Patient completes activity by themselves 4 Supervision or touching assist (CGA). [place] provide cues , steadying assist 3 The helper provides less than half the effort to complete the activity 2 The helper provides more than half the effort to complete the activity 1 Dependent. The helper does all the effort to complete an activity 7 Patient refused to complete or attempt activity 9 The patient did not perform the activity before the current illness or injury 88 Not attempted due to Medical conditions or safety concerns Transfers (B, C, W/C) (FIM): 6 Scootin Rollin Supine to/from Sit: 6 Sit to/from Stand: 6 Weight Bearing Right Lower Extremity: Right Weight Bearing/Tolerated Left Lower Extremity: Left Full Weight Bearing Gait Training Gait (FIM): 6 Distance (FIM): 3=150 ft Distance: 750' Gait Level of Assist: 6 Gait Persons Needed: 1 Gait Assistive Device: FWW Exercises NuStep Minutes: 10 NuStep Workload: 4 Assessment Current Status: Excellent Progress Patient did well with all activities. PT Short Term Goals Short Term Goals Time Frame: Nov 29, 2018 Transfers (B,C,W/C) (FIM): 5 (met) Gait (FIM): 4 (met) Distance (FIM): 3=150 ft Gait Assistive Device: FWW PT Detention Goals Detention Goals PT Detention Goals Time Frame: Dec 06, 2018 Transfers (B,C,W/C) (FIM): 7 Sit to Lying (QC): 6 Lying-Sitting on Side/Bed(QC): 6 Sit to Stand (QC): 6 Rollin Roll Left to Right (QC): 6 Chair/Hnk-dl-Kvdtp Xfer(QC): 6 Car Transfer (QC): 6 Does the Patient Walk: Yes Gait (FIM): 6 Gait distance (FIM): 3=150 ft Walk 10 feet (QC): 6 Walk 10ft-Uneven Surface(QC): 6 Walk 50ft with 2 Turns (QC): 6 Walk 150 ft (QC): 6 Gait Assistive Device: FWW Does the Pt use WC or Scooter?: No Stairs (FIM): 5 # of Steps: 4 1 Step (curb) (QC): 6 4 Steps (QC): 6 12 Steps (QC): 9 Picking up an Object (QC): 88 PT Plan Treatment/Plan Treatment Plan: Continue Plan of Care Treatment Plan: Bed Mobility, Education, Functional Activity Lizet, Functional Strength, Group Therapy, Gait, Safety, Therapeutic Exercise, Transfers Treatment Duration: Dec 06, 2018 Frequency: At least 5 of 7 days/Wk (IRF) Estimated Hrs Per Day: 1.5 hours per day Patient and/or Family Agrees t: Yes Time/GCodes Time In: 909 Time Out: 0935 Total Billed Treatment Time: 25 Total Billed Treatment 1, GT x 15', EX x 10' FRANCISCA MURILLO PT Nov 30, 2018 09:41
[2018-11-30] MEDS: APIXABAN 2.5 MG (ELIQUIS) TABLET PO SCH ×2 (10:33→20:56)
[2018-11-30] MEDS: OMEGA 3 (FISH OIL) 1000 MG CAP PO SCH (10:33)
[2018-11-30] MEDS: ALLOPURINOL 300 MG (ZYLOPRIM) TAB PO SCH (10:33)
[2018-11-30] MEDS: VITAMIN D3 1,000 UNITS (CHOLECALCIFEROL) TABLET PO SCH (10:33)
[2018-11-30] MEDS: SENNA W/DOCUSATE (SENOKOT S) TABLET PO SCH ×2 (10:33→20:56)
[2018-11-30] MEDS: ARTIFICAL TEARS 0.4 ML UNIT DOSE (REFRESH PLUS) OU SCH ×2 (10:33→20:55)
[2018-11-30] MEDS: CARVEDILOL 6.25 MG (COREG) TAB PO SCH ×2 (10:33→20:55)
[2018-11-30] MEDS: ZINC SULFATE 220 MG CAPSULE PO SCH (10:33)
--- NOTE | 2018-11-30 12:21 | PM&R Progress Note ---
Subjective HPI/CC On Admission Date Seen by Provider: Nov 30, 2018 Time Seen by Provider: 11:30 CC: Debility following right hip replacement uncomplicated by Dr Nickerson POD # 3 HPI: This is an 83yoWM clinic pt of Dr. Ramirez in [place] who presented to the inpatient rehab following an uncomplicated right total hip replacement after her failed conservative treatment. He has a history of AF and sees Dr. Vera cardiology for that but has had significant weakness prior to sx and subsequent to surgery so he was found to meet criteria for inpatient rehab and has some sig nificant problems with urinary retention maintained on Marley catheter since unable to urinate the night of surgery. At this current time pt remains stable, hgb slightly low at 8.8 his AF has done well after an atrial fibrillation episode in the OR but remains in normal sinus rhythm now. He has had 3 bowel movements this morning before leaving [facility] in [place]. He will return home at [place]. His prior level of functioning was use of assistive devices and fairly independent with ADLs. He has been for 49 years. Subjective/Events-last exam Doing very well. BP is stable Right lower extremity edema is being managed with ambulation and PT along with ANDREA pollack Right great toe gout attack was being managed with an additional dose of prednisone of 5 MG since he takes 2.5 daily and that seems to have helped quite a bit since he no longer has any increased pain Incision burning is much improved. Set for discharge Sunday Pain is well controlled Overall feels much better Conferred with RN Reviewed therapy notes Check meds and labs Review of Systems Musculoskeletal: leg pain Objective Exam Vital Signs Vital Signs Date Time Temp Pulse Resp B/P (MAP) Pulse Ox O2 Delivery O2 Flow Rate FiO2 11/30/18 16:02 36.2 73 16 108/60 96 Room Air Capillary Refill : Less Than 3 Seconds General Appearance: No Apparent Distress, WD/WN, Chronically ill HEENT: PERRL/EOMI, Normal ENT Inspection, Pharynx Normal, Moist Mucous Membranes Neck: Full Range of Motion, Normal Inspection, Non Tender, Supple Respiratory: Chest Non Tender, Lungs Clear, Normal Breath Sounds, No Accessory Muscle Use, No Respiratory Distress Cardiovascular: Regular Rate, Rhythm, No Edema, No Gallop, No JVD, Systolic Murmur Gastrointestinal: Normal Bowel Sounds, No Organomegaly, No Pulsatile Mass, Non Tender, Soft Back: Normal Inspection, No CVA Tenderness, No Vertebral Tenderness Extremity: Normal Capillary Refill, Normal Inspection, Normal Range of Motion (except right leg), Non Tender, No Calf Tenderness, No Pedal Edema Neurologic/Psychiatric: Alert, Oriented x3, No Motor/Sensory Deficits, Normal Mood/Affect Skin: Normal Color, Warm/Dry Lymphatic: No Adenopathy Results/Procedures Lab Patient resulted labs reviewed. FIM Transfers Therapy Code Descriptions/Definitions Functional [place] Measure: 0=Not Assessed/NA 4=Minimal Assistance 1=Total Assistance 5=Supervision or Setup 2=Maximal Assistance 6=Modified [place] 3=Moderate Assistance 7=Complete [place] Therapy Quality Codes: 6 Independent with activity with or without an assistive device 5 Patient requires set up or clean up by helper. Patient completes activity by themselves 4 Supervision or touching assist (CGA). Gore provide cues , steadying assist 3 The helper provides less than half the effort to complete the activity 2 The helper provides more than half the effort to complete the activity 1 Dependent. The helper does all the effort to complete an activity 7 Patient refused to complete or attempt activity 9 The patient did not perform the activity before the current illness or injury 88 Not attempted due to Medical conditions or safety concerns Transfers (B, C, W/C) (FIM): 6 Scootin Rollin Roll Left to Right (QC): 3 Supine to/from Sit: 6 Sit to/from Stand: 6 Sit to Lying (QC): 4 Sit to Stand (QC): 5 Chair/[id number] Xfer(QC): 4 Bed to/from Chair: 6 Car Transfer (QC): 4 Gait Training Does the Patient Walk?: Yes Gait (FIM): 6 Distance (FIM): 3=150 ft Distance: 750' Walk 10 feet (QC): 5 Walk 50 ft with 2 Turns(QC): 5 Walk 150 ft (QC): 5 Walking 10ft/uneven surface-QC: 4 Gait Level of Assist: 6 Gait Persons Needed: 1 Gait Assistive Device: FWW Wheelchair Training Does the Pt Use a Wheelchair?: No Stair Training Stair Training: Handrails/: 2 handrails Stairs (FIM): 2 #of Steps: 3 (ascend and descend) 1 Step (curb) (QC): 4 4 Steps (QC): 4 12 Steps (QC): 88 Stairs: Pattern: Step to (able to follow skilled instruction for safety and technique) Level of Assist: 4 (CGA provided) Balance Picking up an Object (QC): 88 (contraindicated) Mental Status/Objective Comprehension: 6 Expression: 6 Social Interaction: 7 Problem Solvin Memory: 4 ADL-Treatment Feedin (Pt drinks coffee and water with IND) Eating (QC): 6 Groomin (SUP for safety) Oral Hygiene (QC): 5 (SUP for safety. Pt utilizes FWW at sink to complete) Bathin (min A RLE washing, pt required SBA for standing while washing toro area for safety. Pt utilized tub bench during bathing ) Bathing Location: L Arm, R Arm, L Upper Leg, R Upper Leg, L Lower Leg (including foot), Chest, Abdomen, Buttocks, Perineal Area Shower/Bathe Self (QC): 3 Upper Extremity Dressin (Pt completes with mod I sitting EOB) Upper Body Dressing (QC): 6 Lower Extremity Dressin (Pt requires cues for ability to complete activity. Pt declines sock aide, completes with min A for RLE sock donning. Pt complets LE dressing with increased time on EOB without AE.) Lower Body Dressing (QC): 3 On/Off Footwear (QC): 4 (Min A for starting thread of RLE sock ) Toiletin (mod I toileting) Toileting Hygiene (QC): 6 (increased time) Toilet/Commode Transfer: 5 Toilet Transfer (QC): 4 (SUP for safety) Tub: 5 (SBA) Shower: 5 (SBA for shower transfer ) Assessment/Plan Assessment and Plan Assess & Plan/Chief Complaint Assessment: Right hip replacement by Dr Nickerson Urinary retention now resolved and voiding well thanks to Dr Arroyo CRI stable at 1.38 HTN AF Murmur of type ECHO completed per Cardiology Post op anemia no indication for transfusions GERD Gout with acute issue now Plan: Dr Arroyo and Dr Griffiths appreciated Monitor hgb and creat Eliquis IRF protocol Urination monitored and improved DC planning Sunday home with HH (1) Status post right hip replacement Status: Acute (2) Atrial fibrillation Status: Chronic Qualifiers: Atrial fibrillation type: paroxysmal Qualified Codes: I48.0 - Paroxysmal atrial fibrillation (3) Urinary retention Status: Acute (4) Gout Status: Chronic Qualifiers: Gout site: unspecified site Gout etiology: unspecified cause Chronicity: unspecified Qualified Codes: M10.9 - Gout, unspecified (5) CAD (coronary artery disease) Status: Chronic Qualifiers: Coronary Disease-Associated Artery/Lesion type: [place] artery [place] vs. transplanted heart: [place] heart Associated angina: without angina Qualified Codes: I25.10 - Atherosclerotic heart disease of [place] coronary artery without angina pectoris (6) Hyperlipemia Status: Chronic Qualifiers: Hyperlipidemia type: mixed hyperlipidemia Qualified Codes: E78.2 - Mixed hyperlipidemia (7) Murmur Status: Chronic (8) Osteoarthritis Status: Chronic Qualifiers: Osteoarthritis location: unspecified site Osteoarthritis type: unspecified Qualified Codes: M19.90 - Unspecified osteoarthritis, unspecified site (9) GERD (gastroesophageal reflux disease) Status: Chronic Qualifiers: Esophagitis presence: without esophagitis Qualified Codes: K21.9 - Gastro- esophageal reflux disease without esophagitis (10) Hypertension Status: Chronic Qualifiers: Hypertension type: essential hypertension Qualified Codes: I10 - Essential (primary) hypertension (11) Valvular heart disease Status: Chronic (12) Postoperative anemia Status: Acute (13) Marley catheter in place Status: Acute (14) Advanced age Status: Chronic SHAWNA ADEN DO Nov 30, 2018 12:21
[2018-11-30 16:02] VITALS: BP 108/60
[2018-11-30] MEDS: FUROSEMIDE 20 MG (LASIX) TAB PO SCH (18:39)
--- NOTE | 2018-11-30 19:14 | NUR ---
bedside report received from GENIE HWANG, assume care of pt
[2018-11-30 20:52] VITALS: BP 100/60
[2018-11-30] MEDS: TAMSULOSIN 0.4 MG (FLOMAX) CAP PO SCH (20:56)
[2018-11-30] MEDS: ACETAMINOPHEN 500 MG TAB (TYLENOL) PO SCH (20:56)
--- NOTE | 2018-11-30 20:56 | NUR ---
pt refused Senokot, scheduled Tylenol 1000mg po given, pain level 3/10 on numeric scale
--- NOTE | 2018-11-30 21:00 | NUR ---
assessments & interventions completed, see assessments & interventions
--- NOTE | 2018-11-30 21:30 | NUR ---
rates pain level 0/10 on numeric scale
[2018-12-01 05:39] VITALS: BP 124/68
[2018-12-01] MEDS: PANTOPRAZOLE 40 MG (PROTONIX) TAB PO SCH (06:39)
[2018-12-01] MEDS: IRON POLYSAC 150 MG CAP (NIFEREX) PO SCH ×2 (06:40→17:34)
[2018-12-01] MEDS: MULTIVIT W/MINERALS TAB (THERAGRAN M) PO SCH (06:40)
--- NOTE | 2018-12-01 07:17 | NUR ---
bedside report given to GENIE HWANG
[2018-12-01] MEDS: RT-ADVAIR HFA 45/21 MCG PER PUFF IH SCH ×2 (08:03→19:09)
[2018-12-01] MEDS: predniSONE 5 MG TAB PO SCH (08:47)
[2018-12-01] MEDS: VITAMIN D3 1,000 UNITS (CHOLECALCIFEROL) TABLET PO SCH (08:47)
[2018-12-01] MEDS: SENNA W/DOCUSATE (SENOKOT S) TABLET PO SCH ×2 (08:47→20:55)
[2018-12-01] MEDS: APIXABAN 2.5 MG (ELIQUIS) TABLET PO SCH ×2 (08:47→20:55)
[2018-12-01] MEDS: ALLOPURINOL 300 MG (ZYLOPRIM) TAB PO SCH (08:47)
[2018-12-01] MEDS: ZINC SULFATE 220 MG CAPSULE PO SCH (08:47)
[2018-12-01] MEDS: OMEGA 3 (FISH OIL) 1000 MG CAP PO SCH (08:48)
[2018-12-01] MEDS: ARTIFICAL TEARS 0.4 ML UNIT DOSE (REFRESH PLUS) OU SCH ×2 (08:48→20:55)
[2018-12-01] MEDS: CARVEDILOL 6.25 MG (COREG) TAB PO SCH ×2 (08:48→20:55)
--- NOTE | 2018-12-01 13:14 | Cardiology Progress Note ---
Cardiology SOAP Progress Note Subjective: No cardiac symptoms. Objective: I&O/Vital Signs 12/01/18 12/01/18 12/01/18 05:39 08:03 08:15 Temp 36.6 Pulse 72 Resp 16 B/P (MAP) 124/68 Pulse Ox 96 96 O2 Delivery Room Air Room Air Room Air 12/01/18 00:00 Intake Total 450 ml Balance 450 ml Weight (Pounds): 168 Weight (Ounces): 11.2 Weight (Calculated Kilograms): [id number] Constitutional: appears stated age, AAO x 3; No apparent distress; well- developed, well-nourished Respiratory: No accessory muscle use, No respiratory distress, No chest tender, No chest expansion is symmetric; chest is bilaterally symmetric; No lungs clear to percussion; lungs clear to auscultation; No crackles, No rhonchi, No rales, No stridor, No wheezing, No pleural rub, No other Cardiovascular: regular rate-rhythm, S1 and S2, systolic murmur Gastrointestional: No tender; soft; No round, No distended, No pulsatile mass, No organomegaly, No guarding, No rebound, No tenderness, No hernia, No mass; audible bowel sounds; No abnormal bowel sounds, No abdominal bruits, No spleenomegaly, No other Extremities: normal inspection; No clubbing, No cyanosis; no lower extremity edema bilateral; No significant edema Neurologic/Psychiatric: no motor/sensory deficits, alert, normal mood/affect, oriented x 3, power is 5/5 both on sides Skin: normal color; No rash, No ulcerations A/P: Assessment/Dx: Hip fracture, hip surgery, paroxysmal Atrial fibrillation, COPD, obstructive sleep apnea, Hypertension, Hyperlipidemia, Systolic murmur Plan: Continue inpatient rehabilitation for hip fracture, hip surgery, paroxysmal Atrial fibrillation, Continue apixaban and carvedilol. EKG on 11/24/2018 shows sinus rhythm with left anterior fascicular block, right bundle branch block. Hypertension, continue carvedilol. Hyperlipidemia, continue statin therapy. Mild aortic stenosis. Follow clinically. COPD, stable. Obstructive sleep apnea, follow clinically. Thank you for your consultation. Please call me if you have any questions. Andrea Griffiths MD, FACP, FACC, FSCAI, FHRS, CCDS Interventional Cardiology Cardiac Electrophysiology Vascular Medicine and Endovascular Interventions José GRIFFITHS MD Dec 01, 2018 13:14
--- NOTE | 2018-12-01 13:46 | PM&R Progress Note ---
Subjective HPI/CC On Admission Date Seen by Provider: Dec 01, 2018 Time Seen by Provider: 13:00 CC: Debility following right hip replacement uncomplicated by Dr Nickerson POD # 3 HPI: This is an 83yoWM clinic pt of Dr. Ramirez in [place] who presented to the inpatient rehab following an uncomplicated right total hip replacement after her failed conservative treatment. He has a history of AF and sees Dr. Vera cardiology for that but has had significant weakness prior to sx and subsequent to surgery so he was found to meet criteria for inpatient rehab and has some sig nificant problems with urinary retention maintained on Marley catheter since unable to urinate the night of surgery. At this current time pt remains stable, hgb slightly low at 8.8 his AF has done well after an atrial fibrillation episode in the OR but remains in normal sinus rhythm now. He has had 3 bowel movements this morning before leaving [facility] in [place]. He will return home at [place]. His prior level of functioning was use of assistive devices and fairly independent with ADLs. He has been for 49 years. Subjective/Events-last exam Doing very well. BP is stable Right lower extremity edema is being managed with ambulation and PT along with ANDREA pollack Gout attack resolved Incision looks good Set for discharge Sunday with HH Pain is well controlled Overall feels much better Conferred with RN Reviewed therapy notes Check meds and labs Review of Systems Musculoskeletal: leg pain Objective Exam Vital Signs Vital Signs Date Time Temp Pulse Resp B/P (MAP) Pulse Ox O2 Delivery O2 Flow Rate FiO2 12/01/18 16:37 36.6 79 14 133/69 95 Room Air Capillary Refill : Less Than 3 Seconds General Appearance: No Apparent Distress, WD/WN, Chronically ill HEENT: PERRL/EOMI, Normal ENT Inspection, Pharynx Normal, Moist Mucous Membranes Neck: Full Range of Motion, Normal Inspection, Non Tender, Supple Respiratory: Chest Non Tender, Lungs Clear, Normal Breath Sounds, No Accessory Muscle Use, No Respiratory Distress Cardiovascular: Regular Rate, Rhythm, No Edema, No Gallop, No JVD, Systolic Murmur Gastrointestinal: Normal Bowel Sounds, No Organomegaly, No Pulsatile Mass, Non Tender, Soft Back: Normal Inspection, No CVA Tenderness, No Vertebral Tenderness Extremity: Normal Capillary Refill, Normal Inspection, Normal Range of Motion (except right leg), Non Tender, No Calf Tenderness, No Pedal Edema Neurologic/Psychiatric: Alert, Oriented x3, No Motor/Sensory Deficits, Normal Mood/Affect Skin: Normal Color, Warm/Dry Lymphatic: No Adenopathy Results/Procedures Lab Patient resulted labs reviewed. FIM Transfers Therapy Code Descriptions/Definitions Functional [place] Measure: 0=Not Assessed/NA 4=Minimal Assistance 1=Total Assistance 5=Supervision or Setup 2=Maximal Assistance 6=Modified [place] 3=Moderate Assistance 7=Complete [place] Therapy Quality Codes: 6 Independent with activity with or without an assistive device 5 Patient requires set up or clean up by helper. Patient completes activity by themselves 4 Supervision or touching assist (CGA). Portia provide cues , steadying assist 3 The helper provides less than half the effort to complete the activity 2 The helper provides more than half the effort to complete the activity 1 Dependent. The helper does all the effort to complete an activity 7 Patient refused to complete or attempt activity 9 The patient did not perform the activity before the current illness or injury 88 Not attempted due to Medical conditions or safety concerns Transfers (B, C, W/C) (FIM): 6 Scootin Rollin Roll Left to Right (QC): 3 Supine to/from Sit: 6 Sit to/from Stand: 6 Sit to Lying (QC): 4 Sit to Stand (QC): 5 Chair/[id number]-Yvhya Xfer(QC): 4 Bed to/from Chair: 6 Car Transfer (QC): 4 Gait Training Does the Patient Walk?: Yes Gait (FIM): 6 Distance (FIM): 3=150 ft Distance: 750' Walk 10 feet (QC): 5 Walk 50 ft with 2 Turns(QC): 5 Walk 150 ft (QC): 5 Walking 10ft/uneven surface-QC: 4 Gait Level of Assist: 6 Gait Persons Needed: 1 Gait Assistive Device: FWW Wheelchair Training Does the Pt Use a Wheelchair?: No Stair Training Stair Training: Handrails/: 2 handrails Stairs (FIM): 2 #of Steps: 3 (ascend and descend) 1 Step (curb) (QC): 4 4 Steps (QC): 4 12 Steps (QC): 88 Stairs: Pattern: Step to (able to follow skilled instruction for safety and technique) Level of Assist: 4 (CGA provided) Balance Picking up an Object (QC): 88 (contraindicated) Mental Status/Objective Comprehension: 6 Expression: 6 Social Interaction: 7 Problem Solvin Memory: 4 ADL-Treatment Feedin (Pt drinks coffee and water with IND) Eating (QC): 6 Groomin (SUP for safety) Oral Hygiene (QC): 5 (SUP for safety. Pt utilizes FWW at sink to complete) Bathin (min A RLE washing, pt required SBA for standing while washing toro area for safety. Pt utilized tub bench during bathing ) Bathing Location: L Arm, R Arm, L Upper Leg, R Upper Leg, L Lower Leg (including foot), Chest, Abdomen, Buttocks, Perineal Area Shower/Bathe Self (QC): 3 Upper Extremity Dressin (Pt completes with mod I sitting EOB) Upper Body Dressing (QC): 6 Lower Extremity Dressin (Pt requires cues for ability to complete activity. Pt declines sock aide, completes with min A for RLE sock donning. Pt complets LE dressing with increased time on EOB without AE.) Lower Body Dressing (QC): 3 On/Off Footwear (QC): 4 (Min A for starting thread of RLE sock ) Toiletin (mod I toileting) Toileting Hygiene (QC): 6 (increased time) Toilet/Commode Transfer: 5 Toilet Transfer (QC): 4 (SUP for safety) Tub: 5 (SBA) Shower: 5 (SBA for shower transfer ) Assessment/Plan Assessment and Plan Assess & Plan/Chief Complaint Assessment: Right hip replacement by Dr Nickerson Urinary retention now resolved and voiding well thanks to Dr Arroyo CRI stable at 1.38 HTN AF Murmur of type ECHO completed per Cardiology Post op anemia no indication for transfusions GERD Gout with acute issue now Plan: Dr Arroyo and Dr Griffiths appreciated Monitor hgb and creat Eliquis IRF protocol Urination monitored and improved DC planning Sunday home with HH (1) Status post right hip replacement Status: Acute (2) Atrial fibrillation Status: Chronic Qualifiers: Atrial fibrillation type: paroxysmal Qualified Codes: I48.0 - Paroxysmal atrial fibrillation (3) Urinary retention Status: Acute (4) Gout Status: Chronic Qualifiers: Gout site: unspecified site Gout etiology: unspecified cause Chronicity: unspecified Qualified Codes: M10.9 - Gout, unspecified (5) CAD (coronary artery disease) Status: Chronic Qualifiers: Coronary Disease-Associated Artery/Lesion type: [place] artery [place] vs. transplanted heart: [place] heart Associated angina: without angina Qualified Codes: I25.10 - Atherosclerotic heart disease of [place] coronary artery without angina pectoris (6) Hyperlipemia Status: Chronic Qualifiers: Hyperlipidemia type: mixed hyperlipidemia Qualified Codes: E78.2 - Mixed hyperlipidemia (7) Murmur Status: Chronic (8) Osteoarthritis Status: Chronic Qualifiers: Osteoarthritis location: unspecified site Osteoarthritis type: unspecified Qualified Codes: M19.90 - Unspecified osteoarthritis, unspecified site (9) GERD (gastroesophageal reflux disease) Status: Chronic Qualifiers: Esophagitis presence: without esophagitis Qualified Codes: K21.9 - Gastro- esophageal reflux disease without esophagitis (10) Hypertension Status: Chronic Qualifiers: Hypertension type: essential hypertension Qualified Codes: I10 - Essential (primary) hypertension (11) Valvular heart disease Status: Chronic (12) Postoperative anemia Status: Acute (13) Marley catheter in place Status: Acute (14) Advanced age Status: Chronic SHAWNA ADEN DO Dec 01, 2018 13:46
[2018-12-01 16:37] VITALS: BP 133/69
[2018-12-01] MEDS: FUROSEMIDE 20 MG (LASIX) TAB PO SCH (17:34)
--- NOTE | 2018-12-01 19:15 | NUR ---
bedside report received from GENIE HWANG, assume care of pt
[2018-12-01 20:50] VITALS: BP 136/73
[2018-12-01] MEDS: TAMSULOSIN 0.4 MG (FLOMAX) CAP PO SCH (20:55)
[2018-12-01] MEDS: ACETAMINOPHEN 500 MG TAB (TYLENOL) PO SCH (20:55)
--- NOTE | 2018-12-01 20:55 | NUR ---
pt refused Senokot given scheduled Tylenol 1000mg & given oxyir 5mg for c/o pain level 4/10 on numeric scale
--- NOTE | 2018-12-01 21:02 | NUR ---
assessments & interventions completed, see assessments & interventions
--- NOTE | 2018-12-01 21:40 | NUR ---
rates pain level 1/10 on numeric scale
[2018-12-02 05:32] LABS: BASOPHILS % (AUTO) 0 % (0-10); EOSINOPHILS # (AUTO) 0.7 10^3/uL (0.0-0.3); EOSINOPHILS % (AUTO) 8 % (0-10); HEMATOCRIT 28 % (40-54); HEMOGLOBIN 8.9 G/DL (13.3-17.7); LYMPHOCYTES # (AUTO) 2.3 X 10^3 (1.0-4.0); LYMPHOCYTES % (AUTO) 24 % (12-44); MEAN CORPUSCULAR HGB CONC 32 G/DL (32-36); MEAN CORPUSCULAR VOLUME 102 FL (80-99); MONOCYTES # (AUTO) 1.1 X 10^3 (0.0-1.0); MONOCYTES % (AUTO) 12 % (0-12); NEUTROPHILS # (AUTO) 5.4 X 10^3 (1.8-7.8); NEUTROPHILS % (AUTO) 56 % (42-75); PLATELET COUNT 280 10^3/uL (130-400); RED CELL DISTRIBUTION WIDTH 15.6 % (10.0-14.5); WHITE BLOOD COUNT 9.6 10^3/uL (4.3-11.0)
[2018-12-02 05:39] VITALS: BP 133/68
[2018-12-02 05:42] LABS: MEAN CORPUSCULAR HEMOGLOBIN 32 PG (25-34)
[2018-12-02 05:56] LABS: BILIRUBIN,TOTAL 0.7 MG/DL (0.1-1.0); CALCIUM 8.8 MG/DL (8.5-10.1); CREATININE SERUM 1.33 MG/DL (0.60-1.30); POTASSIUM 3.2 MMOL/L (3.6-5.0); TOTAL PROTEIN 5.5 GM/DL (6.4-8.2)
[2018-12-02] MEDS: PANTOPRAZOLE 40 MG (PROTONIX) TAB PO SCH (06:31)
[2018-12-02] MEDS: MULTIVIT W/MINERALS TAB (THERAGRAN M) PO SCH (06:31)
[2018-12-02] MEDS: IRON POLYSAC 150 MG CAP (NIFEREX) PO SCH ×2 (06:31→18:01)
--- NOTE | 2018-12-02 07:22 | NUR ---
bedside report given to GENIE HWANG
[2018-12-02] MEDS: RT-ADVAIR HFA 45/21 MCG PER PUFF IH SCH ×2 (07:51→18:58)
[2018-12-02] MEDS ORDERED: KCL 10 MEQ TAB (MICRO K) PO NR (08:15)
--- NOTE | 2018-12-02 08:15 | PM&R Progress Note ---
Subjective HPI/CC On Admission Date Seen by Provider: Dec 02, 2018 Time Seen by Provider: 08:30 CC: Debility following right hip replacement uncomplicated by Dr Nickerson POD # 3 HPI: This is an 83yoWM clinic pt of Dr. Ramirez in [place] who presented to the inpatient rehab following an uncomplicated right total hip replacement after her failed conservative treatment. He has a history of AF and sees Dr. Vera cardiology for that but has had significant weakness prior to sx and subsequent to surgery so he was found to meet criteria for inpatient rehab and has some significant problems with urinary retention maintained on Marley catheter since unable to urinate the night of surgery. At this current time pt remains stable, hgb slightly low at 8.8 his AF has done well after an atrial fibrillation episode in the OR but remains in normal sinus rhythm now. He has had 3 bowel movements this morning before leaving [facility] in [place]. He will return home at [place]. His prior level of functioning was use of assistive devices and fairly in dependent with ADLs. He has been for 49 years. Subjective/Events-last exam DC plan for Sunday on home health Hgb 8.9 Potassium 3.2 so order potassium supplement Creatinine 1.33 Bowels are moving Pain is well controlled Overall feels much better Conferred with RN Reviewed therapy notes Check meds and labs Review of Systems Musculoskeletal: leg pain Objective Exam Vital Signs Vital Signs Date Time Temp Pulse Resp B/P (MAP) Pulse Ox O2 Delivery O2 Flow Rate FiO2 12/02/18 18:58 95 Room Air 12/02/18 05:39 36.6 78 24 133/68 Capillary Refill : Less Than 3 Seconds General Appearance: No Apparent Distress, WD/WN, Chronically ill HEENT: PERRL/EOMI, Normal ENT Inspection, Pharynx Normal, Moist Mucous Membranes Neck: Full Range of Motion, Normal Inspection, Non Tender, Supple Respiratory: Chest Non Tender, Lungs Clear, Normal Breath Sounds, No Accessory Muscle Use, No Respiratory Distress Cardiovascular: Regular Rate, Rhythm, No Edema, No Gallop, No JVD, Systolic Murmur Gastrointestinal: Normal Bowel Sounds, No Organomegaly, No Pulsatile Mass, Non Tender, Soft Back: Normal Inspection, No CVA Tenderness, No Vertebral Tenderness Extremity: Normal Capillary Refill, Normal Inspection, Normal Range of Motion (except right leg), Non Tender, No Calf Tenderness, No Pedal Edema Neurologic/Psychiatric: Alert, Oriented x3, No Motor/Sensory Deficits, Normal Mood/Affect Skin: Normal Color, Warm/Dry Lymphatic: No Adenopathy Results/Procedures Lab Laboratory Tests 12/02/18 04:34 Patient resulted labs reviewed. FIM Transfers Therapy Code Descriptions/Definitions Functional [place] Measure: 0=Not Assessed/NA 4=Minimal Assistance 1=Total Assistance 5=Supervision or Setup 2=Maximal Assistance 6=Modified [place] 3=Moderate Assistance 7=Complete [place] Therapy Quality Codes: 6 Independent with activity with or without an assistive device 5 Patient requires set up or clean up by helper. Patient completes activity by themselves 4 Supervision or touching assist (CGA). [place] provide cues , steadying assist 3 The helper provides less than half the effort to complete the activity 2 The helper provides more than half the effort to complete the activity 1 Dependent. The helper does all the effort to complete an activity 7 Patient refused to complete or attempt activity 9 The patient did not perform the activity before the current illness or injury 88 Not attempted due to Medical conditions or safety concerns Transfers (B, C, W/C) (FIM): 6 Scootin Rollin Roll Left to Right (QC): 3 Supine to/from Sit: 6 Sit to/from Stand: 6 Sit to Lying (QC): 4 Sit to Stand (QC): 5 Chair/Urf-oj-Fsddz Xfer(QC): 4 Bed to/from Chair: 6 Car Transfer (QC): 4 Gait Training Does the Patient Walk?: Yes Gait (FIM): 6 Distance (FIM): 3=150 ft Distance: 750' Walk 10 feet (QC): 5 Walk 50 ft with 2 Turns(QC): 5 Walk 150 ft (QC): 5 Walking 10ft/uneven surface-QC: 4 Gait Level of Assist: 6 Gait Persons Needed: 1 Gait Assistive Device: FWW Wheelchair Training Does the Pt Use a Wheelchair?: No Stair Training Stair Training: Handrails/: 2 handrails Stairs (FIM): 2 #of Steps: 3 (ascend and descend) 1 Step (curb) (QC): 4 4 Steps (QC): 4 12 Steps (QC): 88 Stairs: Pattern: Step to (able to follow skilled instruction for safety and technique) Level of Assist: 4 (CGA provided) Balance Picking up an Object (QC): 88 (contraindicated) Mental Status/Objective Comprehension: 6 Expression: 6 Social Interaction: 7 Problem Solvin Memory: 4 ADL-Treatment Feedin (Pt drinks coffee and water with IND) Eating (QC): 6 Groomin (SUP for safety) Oral Hygiene (QC): 5 (SUP for safety. Pt utilizes FWW at sink to complete) Bathin (min A RLE washing, pt required SBA for standing while washing toro area for safety. Pt utilized tub bench during bathing ) Bathing Location: L Arm, R Arm, L Upper Leg, R Upper Leg, L Lower Leg (including foot), Chest, Abdomen, Buttocks, Perineal Area Shower/Bathe Self (QC): 3 Upper Extremity Dressin (Pt completes with mod I sitting EOB) Upper Body Dressing (QC): 6 Lower Extremity Dressin (Pt requires cues for ability to complete activity. Pt declines sock aide, completes with min A for RLE sock donning. Pt complets LE dressing with increased time on EOB without AE.) Lower Body Dressing (QC): 3 On/Off Footwear (QC): 4 (Min A for starting thread of RLE sock ) Toiletin (mod I toileting) Toileting Hygiene (QC): 6 (increased time) Toilet/Commode Transfer: 5 Toilet Transfer (QC): 4 (SUP for safety) Tub: 5 (SBA) Shower: 5 (SBA for shower transfer ) Assessment/Plan Assessment and Plan Assess & Plan/Chief Complaint Assessment: Right hip replacement by Dr Nickerson Urinary retention now resolved and voiding well thanks to Dr Arroyo CRI stable at 1.38 HTN AF Murmur of type ECHO completed per Cardiology Post op anemia no indication for transfusions GERD Gout with acute issue now Plan: Dr Arroyo and Dr Griffiths appreciated Monitor hgb and creat Eliquis IRF protocol Urination monitored and improved DC planning Sunday home with HH (1) Status post right hip replacement Status: Acute (2) Atrial fibrillation Status: Chronic Qualifiers: Atrial fibrillation type: paroxysmal Qualified Codes: I48.0 - Paroxysmal atrial fibrillation (3) Urinary retention Status: Acute (4) Gout Status: Chronic Qualifiers: Gout site: unspecified site Gout etiology: unspecified cause Chronicity: unspecified Qualified Codes: M10.9 - Gout, unspecified (5) CAD (coronary artery disease) Status: Chronic Qualifiers: Coronary Disease-Associated Artery/Lesion type: [place] artery [place] vs. transplanted heart: [place] heart Associated angina: without angina Qualified Codes: I25.10 - Atherosclerotic heart disease of [place] coronary artery without angina pectoris (6) Hyperlipemia Status: Chronic Qualifiers: Hyperlipidemia type: mixed hyperlipidemia Qualified Codes: E78.2 - Mixed hyperlipidemia (7) Murmur Status: Chronic (8) Osteoarthritis Status: Chronic Qualifiers: Osteoarthritis location: unspecified site Osteoarthritis type: unspecified Qualified Codes: M19.90 - Unspecified osteoarthritis, unspecified site (9) GERD (gastroesophageal reflux disease) Status: Chronic Qualifiers: Esophagitis presence: without esophagitis Qualified Codes: K21.9 - Gastro- esophageal reflux disease without esophagitis (10) Hypertension Status: Chronic Qualifiers: Hypertension type: essential hypertension Qualified Codes: I10 - Essential (primary) hypertension (11) Valvular heart disease Status: Chronic (12) Postoperative anemia Status: Acute (13) Marley catheter in place Status: Acute (14) Advanced age Status: Chronic SHAWNA ADEN DO Dec 02, 2018 08:15
[2018-12-02] MEDS: ARTIFICAL TEARS 0.4 ML UNIT DOSE (REFRESH PLUS) OU SCH ×2 (08:25→21:07)
[2018-12-02] MEDS: VITAMIN D3 1,000 UNITS (CHOLECALCIFEROL) TABLET PO SCH (08:27)
[2018-12-02] MEDS: CARVEDILOL 6.25 MG (COREG) TAB PO SCH ×2 (08:27→21:08)
[2018-12-02] MEDS: OMEGA 3 (FISH OIL) 1000 MG CAP PO SCH (08:27)
[2018-12-02] MEDS: ALLOPURINOL 300 MG (ZYLOPRIM) TAB PO SCH (08:28)
[2018-12-02] MEDS: APIXABAN 2.5 MG (ELIQUIS) TABLET PO SCH ×2 (08:28→21:08)
[2018-12-02] MEDS: ZINC SULFATE 220 MG CAPSULE PO SCH (08:28)
--- NOTE | 2018-12-02 09:04 | Physical Therapy Daily Note ---
PT Daily Note-Current Subjective Pt. states he feels he has made a lot of progress and has min guajardo at 3/10 right hip. Pain Numeric Pain Scale: 3 Location: Right Location Body Site: Shoulder Pain Description: Ache Mental Status Patient Orientation: Normal For Age Transfers Therapy Code Descriptions/Definitions Functional [place] Measure: 0=Not Assessed/NA 4=Minimal Assistance 1=Total Assistance 5=Supervision or Setup 2=Maximal Assistance 6=Modified [place] 3=Moderate Assistance 7=Complete [place] Therapy Quality Codes: 6 Independent with activity with or without an assistive device 5 Patient requires set up or clean up by helper. Patient completes activity by themselves 4 Supervision or touching assist (CGA). [place] provide cues , steadying assist 3 The helper provides less than half the effort to complete the activity 2 The helper provides more than half the effort to complete the activity 1 Dependent. The helper does all the effort to complete an activity 7 Patient refused to complete or attempt activity 9 The patient did not perform the activity before the current illness or injury 88 Not attempted due to Medical conditions or safety concerns Transfers (B, C, W/C) (FIM): 6 Scootin Rollin Roll Left to Right (QC): 6 Supine to/from Sit: 6 Sit to/from Stand: 6 Sit to Lying (QC): 6 Sit to Stand (QC): 6 Chair/Qmk-sk-Gdmhq Xfer(QC): 6 Bed to/from Chair: 6 Car Transfer (QC): 6 Weight Bearing Right Lower Extremity: Right Weight Bearing/Tolerated Left Lower Extremity: Left Full Weight Bearing Gait Training Does the Patient Walk?: Yes Gait (FIM): 6 Distance (FIM): 3=150 ft (250,200) Walk 10 feet (QC): 6 Walk 50 ft with 2 Turns(QC): 6 Walk 150 ft (QC): 6 Walking 10ft/uneven surface-QC: 6 Gait Level of Assist: 6 Gait Persons Needed: 0 Gait Assistive Device: FWW side step left and right as well as retro with no LOB and good safety awareness and technique Stair Training Stair Training: Handrails/: 1 handrail Stairs (FIM): 5 #of Steps: 4 1 Step (curb) (QC): 5 4 Steps (QC): 5 Stairs: Pattern: Step to Level of Assist: 5 helper assists only with bringing FWW up down steps before as well as watching on Balance Special Test Comments contraindicated Exercises Supine Ex: Ankle pumps, Quad Set, Rolling, Glut sets, Heel Slides, Short Arc Quads, Scooting, Straight leg raise, Hip abd/add Supine Reps: 15 Seated Therapy Exercises: Ankle pumps, Sit to stand, Long arc quads Seated Reps: 12 NuStep Minutes: 10 NuStep Workload: 4 Treatments nustep for reciprocal U&L extr exercises Assessment Current Status: Excellent Progress PT Short Term Goals Short Term Goals Time Frame: Nov 29, 2018 Transfers (B,C,W/C) (FIM): 5 (met) Gait (FIM): 4 (met) Distance (FIM): 3=150 ft Gait Assistive Device: FWW PT Residential Goals Residential Goals PT Residential Goals Time Frame: Dec 06, 2018 Transfers (B,C,W/C) (FIM): 7 Sit to Lying (QC): 6 Lying-Sitting on Side/Bed(QC): 6 Sit to Stand (QC): 6 Rollin Roll Left to Right (QC): 6 Chair/Lad-cs-Apxto Xfer(QC): 6 Car Transfer (QC): 6 Does the Patient Walk: Yes Gait (FIM): 6 Gait distance (FIM): 3=150 ft Walk 10 feet (QC): 6 Walk 10ft-Uneven Surface(QC): 6 Walk 50ft with 2 Turns (QC): 6 Walk 150 ft (QC): 6 Gait Assistive Device: FWW Does the Pt use WC or Scooter?: No Stairs (FIM): 5 # of Steps: 4 1 Step (curb) (QC): 6 4 Steps (QC): 6 12 Steps (QC): 9 Picking up an Object (QC): 88 PT Plan Treatment/Plan Treatment Plan: Continue Plan of Care Treatment Plan: Bed Mobility, Education, Functional Activity Lizet, Functional Strength, Group Therapy, Gait, Safety, Therapeutic Exercise, Transfers Treatment Duration: Dec 06, 2018 Frequency: At least 5 of 7 days/Wk (IRF) Estimated Hrs Per Day: 1.5 hours per day Patient and/or Family Agrees t: Yes Safety Risks/Education Patient Education: Gait Training, Transfer Techniques, Steps, Reviewed Precautions, Correct Positioning, Disease Process, Safety Issues Teaching Recipient: Patient Teaching Methods: Demonstration, Discussion Response to Teaching: Verbalize Understanding, Return Demonstration, Reinforcement Needed pt. correctly recites THR precautions 3/3 accurately, also demonstrates this during activity Time/GCodes Time In: 800 Time Out: 900 Total Billed Treatment Time: 60 Total Billed Treatment 1,EX30m,GT15m,FA15m MISSY GREGORY HEAD SHIPPER Dec 02, 2018 09:04
[2018-12-02] MEDS: SENNA W/DOCUSATE (SENOKOT S) TABLET PO SCH ×2 (09:44→21:33)
--- NOTE | 2018-12-02 09:46 | Occupational Ther Daily Note ---
OT Current Status-Daily Note Subjective Pt alert, sitting in recliner chair. Pt agreeable to OT tx session, stating "small amount of pain." Mental Status/Objective Patient Orientation: Normal For Age Therapy Code Descriptions/Definitions Functional [place] Measure: 0=Not Assessed/NA 4=Minimal Assistance 1=Total Assistance 5=Supervision or Setup 2=Maximal Assistance 6=Modified [place] 3=Moderate Assistance 7=Complete [place] ADL-Treatment Therapy Code Descriptions/Definitions Functional [place] Measure: 0=Not Assessed/NA 4=Minimal Assistance 1=Total Assistance 5=Supervision or Setup 2=Maximal Assistance 6=Modified [place] 3=Moderate Assistance 7=Complete [place] Therapy Quality Codes: 6 Independent with activity with or without an assistive device 5 Patient requires set up or clean up by helper. Patient completes activity by themselves 4 Supervision or touching assist (CGA). [place] provide cues , steadying assist 3 The helper provides less than half the effort to complete the activity 2 The helper provides more than half the effort to complete the activity 1 Dependent. The helper does all the effort to complete an activity 7 Patient refused to complete or attempt activity 9 The patient did not perform the activity before the current illness or injury 88 Not attempted due to Medical conditions or safety concerns Eating (FIM): 6 Eating (QC): 6 Grooming (FIM): 5 (SUP for safety. Pt completes at sink with FWW.) Oral Hygiene (QC): 5 (SUP for safety while standing at sink. ) Bathing (FIM): 5 (SUP for safety. Pt completed with increased IND, utilizing long handled sponge for bathing feet and back without OT assist.) Shower/Bathe Self (QC): 4 (SUP for safety) Upper Body (FIM): 6 (Completed UB dressing sitting on shower seat for energy conservation. ) Upper Body Dressing (QC): 6 Lower Body Dressing (FIM): 5 (Cues for energy conservation techniques as increased SOB noted. Pt took 2 breaks during LB dressing, able to complete with s/u for sock on large sock [place], and with dressing stick for undergarments and pants. Pt completes shoe donning with mod I on shower seat.) Lower Body Dressing (QC): 4 (Cues for energy conservation and pursed lip breathing during SOB) On/Off Footwear (QC): 6 (Increased time while seated on shower chair.) Toileting (FIM): 5 (SUP for safety. ) Toileting Hygiene (QC): 6 (completes while seated on toilet) Transfers (B, C, W/C) (FIM): 5 (SUP for safety) Toilet/Commode Transfer (FIM): 5 (SUP for safety) Toilet Transfer (QC): 4 (SUP) Tub Transfer(FIM): 5 (SUP for safety, use of grab bars and shower seat. Pt states he utilizes grab bar and shower seat at home, did not use shower seat other than washing feet prior to hospitalization; pt plans to use shower seat upon d/c for safety and energy conservation.) Other Treatment Pt gathered clothing from closet. Pt required cues for walker placement during standing. Pt return demonstrated safety techniques.. Pt stated no concerns with going home. D/c equipment includes: dressing stick, long handled sponge. Pt owns sock aide and does not plan to use running rigger within daily tasks. Pt states he may use sock aide, or is present through day to assist with LB dressing tasks if needed. Pt practices pursed lip breathing while seated on shower chair during SOB, pt completes with success and continues dressing tasks. Pt determines when own break is needed with accuracy. Pt completed shower and grooming tasks, returned to recliner chair with all needs met and call light in reach. Education OT Patient Education: Correct positioning, Energy conservation, Modified ADL techniques, Progress toward Goal/Update tx plan, Purpose of tx/functional activities, Rehab process, Safety issues, Transfer techniques, Use of adapted equipment Teaching Recipient: Patient Teaching Methods: Demonstration, Discussion Response to Teaching: Verbalize Understanding, Return Demonstration OT Short Term Goals Short Term Goals Time Frame: Dec 04, 2018 Grooming(FIM): 5 (met) Bathing(FIM): 4 Bathing Location: L Arm, R Arm, L Upper Leg, R Upper Leg, Chest, Abdomen, Buttocks, Perineal Area Upper Body Dressing(FIM): 5 (met) Lower Body Dressing(FIM): 5 (met) Toileting(FIM): 5 (met) Transfers (B,C,W/C) (FIM): 5 (met) Toilet/Commode Transfer(FIM): 5 (met) Shower Transfer(FIM): 4 (met) 1=Demonstrate adherence to instructed precautions during ADL tasks. 2=Patient will verbalize/demonstrate understanding of assistive devices/modifications for ADL. 3=Patient will improve strength/tolerance for activity to enable patient to perform ADL's. OT Sr. Payroll Processor Goals Snf Goals Time Frame: Dec 13, 2018 Eating (FIM): 7 (met) Eating (QC): 6 (met) Groomin Oral Hygiene (QC): 6 Bathing(FIM): 5 (met) Bathing Location: L Arm, R Arm, L Upper Leg, R Upper Leg, L Lower Leg (includ ing foot), R Lower Leg (including foot), Chest, Abdomen, Buttocks, Perineal Area Shower/Bathe Self (QC): 5 (met) Upper Body Dressing(FIM): 6 (met) Upper Body Dressing (QC): 6 (met) Lower Body Dressing(FIM): 6 Lower Body Dressing (QC): 6 On/Off Footwear (QC): 6 Toileting(FIM): 6 Toileting Hygiene (QC): 6 Transfers (B,C,W/C) (FIM): 6 Toilet/Commode Transfer(FIM): 6 Toilet/Commode Transfer (QC): 6 Shower Transfer(FIM): 5 (met) Additional Goals: 1-Demonstrate ADL Tasks, 2-Verbalize Understanding, 3- ImproveStrength/[place] 1=Demonstrate adherence to instructed precautions during ADL tasks. 2=Patient will verbalize/demonstrate understanding of assistive devices/modifications for ADL. 3=Patient will improve strength/tolerance for activity to enable patient to perform ADL's. OT Education/Plan Problem List/Assessment Assessment: Decreased Activ Tolerance, Impaired Funct Balance, Impaired I ADL's, Impaired Self-Care Skills Pt would benefit from skilled OT services in order to increase independence in ADLs and functional mobility in order for pt to safely return home. Discharge Recommendations Plan/Recommendations: Continue POC Therapy Discharge Recommendati: Other, See Comments Equpiment Recommendations-D/C: Dressing Stick, Other, See Comments Comment Pt owns shower chair and grab bars within shower. Recommended equipment for increased IND at home includes: dressing stick, long handled sponge. Pt plans to return home with support, pt's home with pt at all times. Treatment Plan/Plan of Care Treatment,Training & Education: Yes Patient would benefit from OT for education, treatment and training to promote independence in ADL's, mobility, safety and/or upper extremity function for ADL's. Plan of Care: ADL Retraining, Caregiver Training, Functional Mobility, Group Exercise/Act as Ind, UE Funct Exercise/Act Treatment Duration: Dec 13, 2018 Frequency: At least 5 of 7 days/Wk (IRF) Estimated Hrs Per Day: 1.5 hours per day Agreement: Yes Rehab Potential: Good Time/GCodes Start Time: 08:45 Stop Time: 09:30 Total Time Billed (hr/min): 45 Billed Treatment Time 1 ADLx3 (45) GAUDENCIO VALENZUELA OTR Dec 02, 2018 09:46
--- NOTE | 2018-12-02 14:28 | NUR ---
Discharge planning Met with patient to discuss planned discharge for 12/03/18. Patient voices no concerns and states he is ready to go home. Patient states his preferred home health care agency is [facility]. IMM reviewed and signed by patient. Patient reports his family will arrive at approximately 1100 tomorrow to transport him home. RN notified. [id number]-Medical records faxed to [facility].
--- NOTE | 2018-12-02 15:21 | NUR ---
Discharge planning Received a call from [facility] with [facility]. Christina reports they not longer have an OT to provide HHC. Discussed this with Vinh Perez OT who has been working with the patient while on the ARU. Vinh Perez OT reports HHC OT is not necessary as patient is performing ADLs at [facility], with the exception of putting on socks, and his is able to assist with this task. Notified Christina at . Patient will receive HHC PT at discharge.
--- NOTE | 2018-12-02 15:22 | Speech Therapy Daily Note ---
Speech Daily Progress Note Subjective Date Seen by Provider: Dec 02, 2018 Time Seen by Provider: 00:30 Patient states he is ready to go home and eat home cooking. Objective Patient completed safety awareness task related questions for his safe return home which he completed with 95% accuracy given minimal cues. Assessment Assessment Current Status: Good Progress Treatment Plan Discontinue ST, Goals Met Communication Comprehension: 7 Expression: 7 Social Cognition Social Interaction: 7 Problem Solvin Memory: 7 Speech Short Term Goals Short Term Goals Short Term Goals 1) The patient will complete memory tasks with 90% or greater accuracy given minimal cues. 2) The patient will complete problem solving tasks with 90% or greater accuracy given minimal cues. 3) The patient will complete safety awareness tasks with 90% or greater accuracy given minimal cues. Speech Usp Goals Wet Primer Powder Blender Goals The patient will improve his cognitive level of function so that he may return home safely. Speech-Plan Patient/Family Goals Patient/Family Goals: Patient is discharging to his home where he lives with his on 12/02/18. Treatment Plan Speech Therapy Treatment Plan: Discontinue ST, Goals Met Patient has made good progress with all ST goals. Treatment Duration: Dec 03, 2018 Frequency: 5 times per week Estimated Hrs Per Day: .5 hour per day Rehab Potential: Good Barriers to Learning: Patient had mild cognitive deficits, however these have resolved. Pt/Family Agrees to Plan: Yes Safety Risks/Education Teaching Recipient: Patient Teaching Methods: Demonstration, Discussion Response to Teaching: Verbalize Understanding, Return Demonstration Education Topics Provided: Continued safety upon his return home. Time Speech Therapy Time In: 14:30 Speech Therapy Time Out: 15:00 Total Billed Time: 30 Billed Treatment Time 1, TATA Miles Dec 02, 2018 15:22
[2018-12-02] MEDS: FUROSEMIDE 20 MG (LASIX) TAB PO SCH (18:01)
[2018-12-02] MEDS: TAMSULOSIN 0.4 MG (FLOMAX) CAP PO SCH (21:08)
[2018-12-02] MEDS: ACETAMINOPHEN 500 MG TAB (TYLENOL) PO SCH (21:08)
[2018-12-02] MEDS ORDERED: DOCU100C37 PO (21:21)
[2018-12-02] MEDS ORDERED: OXYC-529 PO (21:21)
[2018-12-02] MEDS ORDERED: POTA10TA6 PO (21:21)
[2018-12-02] MEDS ORDERED: IRON150C3 PO (21:21)
[2018-12-02] MEDS ORDERED: TRAM50TA2 PO (21:21)
--- NOTE | 2018-12-02 21:22 | Discharge Summary ---
Discharge Summary Reconcile Patient Problems Problems Reviewed?: Yes Instructions for Patient HH Assessment/Instructions Dr Nickerson as scheduled PCP 1 week Physician to follow Patient: PCP Discharge Diet for Home: No Restrictions Hospital Course Date of Admission: Nov 22, 2018 at 12:09 Admission Diagnosis : Family Physician/Provider: No,Local Physician Date of Discharge: 12/02/18 Discharge Diagnosis: right hip replacement, , CRI, OAC Labs and Pending Lab Test: Laboratory Tests 12/02/18 04:34: White Blood Count 9.6, Red Blood Count 2.74L, Hemoglobin 8.9L, Hematocrit 28L, Mean Corpuscular Volume 102H, Mean Corpuscular Hemoglobin 32, Mean Corpuscular Hemoglobin Concent 32, Red Cell Distribution Width 15.6H, Platelet Count 280, Mean Platelet Volume 10.0, Neutrophils (%) (Auto) 56, Lymphocytes (%) (Auto) 24, Monocytes (%) (Auto) 12, Eosinophils (%) (Auto) 8, Basophils (%) (Auto) 0, Neutrophils # (Auto) 5.4, Lymphocytes # (Auto) 2.3, Monocytes # (Auto) 1.1H, Eosinophils # (Auto) 0.7H, Basophils # (Auto) 0.0, Sodium Level 140, Potassium Level 3.2L, Chloride Level 106, Carbon Dioxide Level 20L, Anion Gap 14, Blood Urea Nitrogen 24H, Creatinine 1.33H, Estimat Glomerular Filtration Rate 51, BUN/Creatinine Ratio 18, Glucose Level 107H, Calcium Level 8.8, Corrected Calcium 9.6, Total Bilirubin 0.7, Aspartate Amino Transf (AST/SGOT) 20, Alanine Aminotransferase (ALT/SGPT) 16, Alkaline Phosphatase 84, Total Protein 5.5L, Albumin 3.0L Home Meds Active Docusate Sodium 100 Mg Capsule 100 Mg PO BID PRN Klor-Con 10 (Potassium Chloride) 10 Meq Tablet.er 10 Meq PO DAILY@0700 Tramadol HCl 50 Mg Tablet 50 Mg PO Q6H PRN Ferrex 150 (Iron Polysaccharide Complex) 150 Mg Capsule 150 Mg PO BID WITH MEALS Oxycodone HCl 5 Mg Tablet 5 Mg PO Q6H PRN Reported Methotrexate (Methotrexate Sodium) 2.5 Mg Tablet 7.5 Mg PO WEEK TAKES 3 (2.5MG) TABLETS Diclofenac Sodium 100 Gm Gel..gram. 4 Gm TOP QID PRN Tylenol Extra Strength (Acetaminophen) 500 Mg Tablet 1,000 Mg PO HS Preservision Areds 2 Softgel (Vit C/E/Zn/Coppr/Lutein/Zeaxan) 1 Each Capsule 1 Cap PO DAILY Flintstones with Iron Tab Chew (Pedi Mv No.79/Ferrous Fumarate) 18 Mg Tab.chew 18 Mg PO DAILY Vitamin D3 (Cholecalciferol (Vitamin D3)) 1,000 Unit Capsule 1,000 Unit PO DAILY [place] 3-6-9 1,200 mg Softgel (Fish Oil/Borage/Flax/Om3,6,9#1) 1,200 Mg Capsule 1,200 Mg PO DAILY Vitamin B Complex 1 Each Capsule 1 Cap PO DAILY Flomax (Tamsulosin HCl) 0.4 Mg Cap 0.4 Mg PO HS Atorvastatin Calcium 40 Mg Tablet 40 Mg PO HS Allopurinol 300 Mg Tablet 300 Mg PO DAILY Allergy Relief (Diphenhydramine HCl) 25 Mg Capsule 25 Mg PO HS PRN Carvedilol 6.25 Mg Tablet 6.25 Mg PO BID Omeprazole 40 Mg Capsule.dr 40 Mg PO DAILY Eliquis (Apixaban) 2.5 Mg Tablet 2.5 Mg PO BID Zinc (Zinc Amino Acid Chelate) 50 Mg Tablet 50 Mg PO DAILY Refresh Tears (Carboxymethylcellulose Sodium) 15 Ml Drops 1 Drop OU BID Flonase Allergy Relief (Fluticasone Propionate) 9.9 Ml [place].susp 1 [place] NS HS PRN Prednisone 5 Mg Tablet 2.5 Mg PO Q48H TAKES 1/2 (5MG) TABLET Furosemide 20 Mg Tablet 20 Mg PO HS [Jessy's Leg Cramps] 1 Tab SL HS PRN Advair 100-50 Diskus (Fluticasone/Salmeterol) 1 Each Blst.w.dev 1 Puff IH BID Patient Allergies: Coded Allergies: No Allergy Information Available (Unverified , 11/21/18) Height (Feet): 5 Height (Inches): 6.00 Weight (Pounds): 168 Weight (Ounces): 11.2 Home Health Need/Face to Face Date of Face to Face: Dec 02, 2018 Clinical Findings: Generalized weakness and fatigue, Instability, Muscle weakness, Pain with ambulation, Unsteady gait I have seen Pt [id number]: Yes Discharged To: Home Diagnosis/Conditions: Hip replacement Patient is Homebound due to: Lindsay fall risk due to instabilty, Muscle weakness, Pain w/ambulation Homebound Status Due to the above stated illness, injury or surgical procedure (medical condition or diagnosis) and associated clinical findings, the patient is homebound because of his/her inability to leave home except with aid of a supportive device and/or person AND leaving the home requires a considerable and taxing effort or is medically contraindicated. Pt req the following assistanc: Walker Home Health Nursing Orders Home Health Services Order: Flight Dynamicist-Evaluate & Treat, Physical Therapy-Evaluate & Treat Certify Stmt I certify that this patient is under my care and that I, a nurse practitioner or a physician; a pediatric dental assistant working with me, had a face to face encounter that -alex ts the physician face to face encounter requirements with this patient as dated. SHAWNA ADEN DO Dec 02, 2018 21:22
[2018-12-03 06:06] VITALS: BP 116/64
[2018-12-03] MEDS: MULTIVIT W/MINERALS TAB (THERAGRAN M) PO SCH (06:22)
[2018-12-03] MEDS: IRON POLYSAC 150 MG CAP (NIFEREX) PO SCH (06:22)
[2018-12-03] MEDS: PANTOPRAZOLE 40 MG (PROTONIX) TAB PO SCH (06:22)
[2018-12-03] MEDS ORDERED: KCL 10 MEQ TAB (MICRO K) PO SCH (07:00)
[2018-12-03] MEDS: RT-ADVAIR HFA 45/21 MCG PER PUFF IH SCH (07:38)
[2018-12-03] MEDS: VITAMIN D3 1,000 UNITS (CHOLECALCIFEROL) TABLET PO SCH (08:07)
[2018-12-03] MEDS: OMEGA 3 (FISH OIL) 1000 MG CAP PO SCH (08:07)
[2018-12-03] MEDS: ZINC SULFATE 220 MG CAPSULE PO SCH (08:08)
[2018-12-03] MEDS: CARVEDILOL 6.25 MG (COREG) TAB PO SCH (08:08)
[2018-12-03] MEDS: ALLOPURINOL 300 MG (ZYLOPRIM) TAB PO SCH (08:08)
[2018-12-03] MEDS: APIXABAN 2.5 MG (ELIQUIS) TABLET PO SCH (08:08)
[2018-12-03] MEDS: predniSONE 5 MG TAB PO SCH (08:08)
[2018-12-03] MEDS: ARTIFICAL TEARS 0.4 ML UNIT DOSE (REFRESH PLUS) OU SCH (08:08)
[2018-12-03] MEDS: SENNA W/DOCUSATE (SENOKOT S) TABLET PO SCH (08:09)
--- NOTE | 2018-12-03 08:13 | Discharge Summary ---
Diagnosis/Chief Complaint Date of Admission Nov 22, 2018 at 12:09 Date of Discharge Discharge Date: Dec 03, 2018 Discharge Diagnosis Assessment: Right hip replacement by Dr Nickerson Urinary retention now resolved and voiding well thanks to Dr Arroyo CRI stable at 1.38 HTN AF Murmur of type ECHO completed per Cardiology Post op anemia no indication for transfusions GERD Gout with acute issue now Plan: Dr Arroyo and Dr Griffiths appreciated Monitor hgb and creat Eliquis IRF protocol Urination monitored and improved DC planning Sunday home with HH (1) Status post right hip replacement Status: Acute (2) Atrial fibrillation Status: Chronic Qualifiers: Atrial fibrillation type: paroxysmal Qualified Codes: I48.0 - Paroxysmal atrial fibrillation (3) Urinary retention Status: Acute (4) Gout Status: Chronic Qualifiers: Gout site: unspecified site Gout etiology: unspecified cause Chronicity: unspecified Qualified Codes: M10.9 - Gout, unspecified (5) CAD (coronary artery disease) Status: Chronic Qualifiers: Coronary Disease-Associated Artery/Lesion type: [place] artery [place] vs. transplanted heart: [place] heart Associated angina: without angina Qualified Codes: I25.10 - Atherosclerotic heart disease of [place] coronary artery without angina pectoris (6) Hyperlipemia Status: Chronic Qualifiers: Hyperlipidemia type: mixed hyperlipidemia Qualified Codes: E78.2 - Mixed hyperlipidemia (7) Murmur Status: Chronic (8) Osteoarthritis Status: Chronic Qualifiers: Osteoarthritis location: unspecified site Osteoarthritis type: unspecified Qualified Codes: M19.90 - Unspecified osteoarthritis, unspecified site (9) GERD (gastroesophageal reflux disease) Status: Chronic Qualifiers: Esophagitis presence: without esophagitis Qualified Codes: K21.9 - Gastro-esophageal reflux disease without esophagitis (10) Hypertension Status: Chronic Qualifiers: Hypertension type: essential hypertension Qualified Codes: I10 - Essential (primary) hypertension (11) Valvular heart disease Status: Chronic (12) Postoperative anemia Status: Acute (13) Marley catheter in place Status: Acute (14) Advanced age Status: Chronic Discharge Summary Discharge Physical Examination Allergies: Coded Allergies: No Allergy Information Available (Unverified , 11/21/18) Vitals & I&Os Vital Signs Date Time Temp Pulse Resp B/P (MAP) Pulse Ox O2 Delivery O2 Flow Rate FiO2 12/03/18 08:36 Room Air 12/03/18 07:39 94 12/03/18 06:06 37.1 69 18 116/64 General Appearance: Alert, Oriented X3, Cooperative Respiratory: Clear to Auscultation Cardiovascular: Regular Rate Psych/Mental Status: Mental Status NL Hospital Course Was the Problem List Reviewed?: Yes Hospital course: Pt had a long hospital course for 12 days in inpatient rehab. He was severely debilitated from the right hip replacement and was actually a little confused at time of discharge from [facility] by Dr. Nickerson, but he was maintained on his anticoagulation that he was on before for atrial fibrillation and cardiology was consulted for close monitoring of aortic stenosis and arrhythmia. Overall he was able to return back to near prior level of functioning with a walker and improved enough to be able to discharge home on home health. Labs remained stable although anemia is acute on chronic. He was able to be discharged in improved condition and he will have close follow-up with his PCP Dr. Ramirez in [place] and all pain medication were printed and signed at time of discharge. Labs (last 24 hrs) Laboratory Tests 11/23/18 06:40: White Blood Count 11.6H, Red Blood Count 2.62L, Hemoglobin 8.7L, Hematocrit 27L, Mean Corpuscular Volume 103H, Mean Corpuscular Hemoglobin 33, Mean Corpuscular Hemoglobin Concent 32, Red Cell Distribution Width 16.0H, Platelet Count 197, Mean Platelet Volume 9.8, Neutrophils (%) (Auto) 62, Lymphocytes (%) (Auto) 24, Monocytes (%) (Auto) 13H, Eosinophils (%) (Auto) 1, Basophils (%) (Auto) 0, Neutrophils # (Auto) 7.2, Lymphocytes # (Auto) 2.8, Monocytes # (Auto) 1.5H, Eosinophils # (Auto) 0.1, Basophils # (Auto) 0.0, Sodium Level 137, Potassium Level 3.8, Chloride Level 102, Carbon Dioxide Level 26, Anion Gap 9, Blood Urea Nitrogen 26H, Creatinine 1.46H, Estimat Glomerular Filtration Rate 46, BUN/Creatinine Ratio 18, Glucose Level 102, Calcium Level 8.8, Corrected Calcium 9.4, Total Bilirubin 0.4, Aspartate Amino Transf (AST/SGOT) 16, Alanine Aminotransferase (ALT/SGPT) 9, Alkaline Phosphatase 75, Total Protein 6.0L, Albumin 3.2 11/25/18 05:35: White Blood Count 10.1, Red Blood Count 2.75L, Hemoglobin 9.2L, Hematocrit 28L, Mean Corpuscular Volume 103H, Mean Corpuscular Hemoglobin 34, Mean Corpuscular Hemoglobin Concent 33, Red Cell Distribution Width 15.6H, Platelet Count 215, Mean Platelet Volume 10.6H, Neutrophils (%) (Auto) 57, Lymphocytes (%) (Auto) 27, Monocytes (%) (Auto) 13H, Eosinophils (%) (Auto) 3, Basophils (%) (Auto) 0, Neutrophils # (Auto) 5.8, Lymphocytes # (Auto) 2.7, Monocytes # (Auto) 1.3H, Eosinophils # (Auto) 0.3, Basophils # (Auto) 0.0, Sodium Level 136, Potassium Level 4.1, Chloride Level 100, Carbon Dioxide Level 24, Anion Gap 12, Blood Urea Nitrogen 25H, Creatinine 1.38H, Estimat Glomerular Filtration Rate 49, BUN/Creatinine Ratio 18, Glucose Level 109H, Calcium Level 9.2, Corrected Calcium 9.8, Total Bilirubin 0.9, Aspartate Amino Transf (AST/SGOT) 20, Alanine Aminotransferase (ALT/SGPT) 11, Alkaline Phosphatase 82, Total Protein 6.2L, Albumin 3.2 12/02/18 04:34: White Blood Count 9.6, Red Blood Count 2.74L, Hemoglobin 8.9L, Hematocrit 28L, Mean Corpuscular Volume 102H, Mean Corpuscular Hemoglobin 32, Mean Corpuscular Hemoglobin Concent 32, Red Cell Distribution Width 15.6H, Platelet Count 280, Mean Platelet Volume 10.0, Neutrophils (%) (Auto) 56, Lymphocytes (%) (Auto) 24, Monocytes (%) (Auto) 12, Eosinophils (%) (Auto) 8, Basophils (%) (Auto) 0, Neutrophils # (Auto) 5.4, Lymphocytes # (Auto) 2.3, Monocytes # (Auto) 1.1H, Eosinophils # (Auto) 0.7H, Basophils # (Auto) 0.0, Sodium Level 140, Potassium Level 3.2L, Chloride Level 106, Carbon Dioxide Level 20L, Anion Gap 14, Blood Urea Nitrogen 24H, Creatinine 1.33H, Estimat Glomerular Filtration Rate 51, BUN/Creatinine Ratio 18, Glucose Level 107H, Calcium Level 8.8, Corrected Calcium 9.6, Total Bilirubin 0.7, Aspartate Amino Transf (AST/SGOT) 20, Alanine Aminotransferase (ALT/SGPT) 16, Alkaline Phosphatase 84, Total Protein 5.5L, Albumin 3.0L Pending Labs Laboratory Tests 11/23/18 06:40: White Blood Count 11.6, Red Blood Count 2.62, Hemoglobin 8.7, Hematocrit 27, Mean Corpuscular Volume 103, Mean Corpuscular Hemoglobin 33, Mean Corpuscular Hemoglobin Concent 32, Red Cell Distribution Width 16.0, Platelet Count 197, Mean Platelet Volume 9.8, Neutrophils (%) (Auto) 62, Lymphocytes (%) (Auto) 24, Monocytes (%) (Auto) 13, Eosinophils (%) (Auto) 1, Basophils (%) (Auto) 0, Neutrophils # (Auto) 7.2, Lymphocytes # (Auto) 2.8, Monocytes # (Auto) 1.5, Eosinophils # (Auto) 0.1, Basophils # (Auto) 0.0, Sodium Level 137, Potassium Level 3.8, Chloride Level 102, Carbon Dioxide Level 26, Anion Gap 9, Blood Urea Nitrogen 26, Creatinine 1.46, Estimat Glomerular Filtration Rate 46, BUN/Creatinine Ratio 18, Glucose Level 102, Calcium Level 8.8, Corrected Calcium 9.4, Total Bilirubin 0.4, Aspartate Amino Transf (AST/SGOT) 16, Alanine Aminotransferase (ALT/SGPT) 9, Alkaline Phosphatase 75, Total Protein 6.0, Albumin 3.2 11/25/18 05:35: White Blood Count 10.1, Red Blood Count 2.75, Hemoglobin 9.2, Hematocrit 28, Mean Corpuscular Volume 103, Mean Corpuscular Hemoglobin 34, Mean Corpuscular Hemoglobin Concent 33, Red Cell Distribution Width 15.6, Platelet Count 215, Mean Platelet Volume 10.6, Neutrophils (%) (Auto) 57, Lymphocytes (%) (Auto) 27, Monocytes (%) (Auto) 13, Eosinophils (%) (Auto) 3, Basophils (%) (Auto) 0, Neutrophils # (Auto) 5.8, Lymphocytes # (Auto) 2.7, Monocytes # (Auto) 1.3, Eosinophils # (Auto) 0.3, Basophils # (Auto) 0.0, Sodium Level 136, Potassium Level 4.1, Chloride Level 100, Carbon Dioxide Level 24, Anion Gap 12, Blood Urea Nitrogen 25, Creatinine 1.38, Estimat Glomerular Filtration Rate 49, BUN/Creatinine Ratio 18, Glucose Level 109, Calcium Level 9.2, Corrected Calcium 9.8, Total Bilirubin 0.9, Aspartate Amino Transf (AST/SGOT) 20, Alanine Aminotransferase (ALT/SGPT) 11, Alkaline Phosphatase 82, Total Protein 6.2, Albumin 3.2 12/02/18 04:34: White Blood Count 9.6, Red Blood Count 2.74, Hemoglobin 8.9, Hematocrit 28, Mean Corpuscular Volume 102, Mean Corpuscular Hemoglobin 32, Mean Corpuscular Hemoglobin Concent 32, Red Cell Distribution Width 15.6, Platelet Count 280, Mean Platelet Volume 10.0, Neutrophils (%) (Auto) 56, Lymphocytes (%) (Auto) 24, Monocytes (%) (Auto) 12, Eosinophils (%) (Auto) 8, Basophils (%) (Auto) 0, Neutrophils # (Auto) 5.4, Lymphocytes # (Auto) 2.3, Monocytes # (Auto) 1.1, Eosinophils # (Auto) 0.7, Basophils # (Auto) 0.0, Sodium Level 140, Potassium Level 3.2, Chloride Level 106, Carbon Dioxide Level 20, Anion Gap 14, Blood Urea Nitrogen 24, Creatinine 1.33, Estimat Glomerular Filtration Rate 51, BUN/Cre atinine Ratio 18, Glucose Level 107, Calcium Level 8.8, Corrected Calcium 9.6, Total Bilirubin 0.7, Aspartate Amino Transf (AST/SGOT) 20, Alanine Aminotransferase (ALT/SGPT) 16, Alkaline Phosphatase 84, Total Protein 5.5, Albumin 3.0 Discharge Home Medications: Active Scripts Active Docusate Sodium 100 Mg Capsule 100 Mg PO BID PRN Klor-Con 10 (Potassium Chloride) 10 Meq Tablet.er 10 Meq PO DAILY@0700 Tramadol HCl 50 Mg Tablet 50 Mg PO Q6H PRN Ferrex 150 (Iron Polysaccharide Complex) 150 Mg Capsule 150 Mg PO BID WITH MEALS Oxycodone HCl 5 Mg Tablet 5 Mg PO Q6H PRN Reported Methotrexate (Methotrexate Sodium) 2.5 Mg Tablet 7.5 Mg PO WEEK TAKES 3 (2.5MG) TABLETS Diclofenac Sodium 100 Gm Gel..gram. 4 Gm TOP QID PRN Tylenol Extra Strength (Acetaminophen) 500 Mg Tablet 1,000 Mg PO HS Preservision Areds 2 Softgel (Vit C/E/Zn/Coppr/Lutein/Zeaxan) 1 Each Capsule 1 Cap PO DAILY [place] with Iron Tab Chew (Pedi Mv No.79/Ferrous Fumarate) 18 Mg Tab.chew 18 Mg PO DAILY Vitamin D3 (Cholecalciferol (Vitamin D3)) 1,000 Unit Capsule 1,000 Unit PO DAILY [place] 3-6-9 1,200 mg Softgel (Fish Oil/Borage/Flax/Om3,6,9#1) 1,200 Mg Capsule 1,200 Mg PO DAILY Vitamin B Complex 1 Each Capsule 1 Cap PO DAILY Flomax (Tamsulosin HCl) 0.4 Mg Cap 0.4 Mg PO HS Atorvastatin Calcium 40 Mg Tablet 40 Mg PO HS Allopurinol 300 Mg Tablet 300 Mg PO DAILY Allergy Relief (Diphenhydramine HCl) 25 Mg Capsule 25 Mg PO HS PRN Carvedilol 6.25 Mg Tablet 6.25 Mg PO BID Omeprazole 40 Mg Capsule.dr 40 Mg PO DAILY Eliquis (Apixaban) 2.5 Mg Tablet 2.5 Mg PO BID Zinc (Zinc Amino Acid Chelate) 50 Mg Tablet 50 Mg PO DAILY Refresh Tears (Carboxymethylcellulose Sodium) 15 Ml Drops 1 Drop OU BID Flonase Allergy Relief (Fluticasone Propionate) 9.9 Ml [place].susp 1 [place] NS HS PRN Prednisone 5 Mg Tablet 2.5 Mg PO Q48H TAKES 1/2 (5MG) TABLET Furosemide 20 Mg Tablet 20 Mg PO HS [Jessy's Leg Cramps] 1 Tab SL HS PRN Advair 100-50 Diskus (Fluticasone/Salmeterol) 1 Each Blst.w.dev 1 Puff IH BID Instructions to patient/family Please see electronic discharge instructions given to patient. Diagnosis/Problems Diagnosis/Problems (1) Status post right hip replacement Status: Acute (2) Atrial fibrillation Status: Chronic Qualifiers: Qualified Codes: I48.0 - Paroxysmal atrial fibrillation (3) Urinary retention Status: Acute (4) Gout Status: Chronic Qualifiers: Qualified Codes: M10.9 - Gout, unspecified (5) CAD (coronary artery disease) Status: Chronic Qualifiers: Qualified Codes: I25.10 - Atherosclerotic heart disease of [place] coronary artery without angina pectoris (6) Hyperlipemia Status: Chronic Qualifiers: Qualified Codes: E78.2 - Mixed hyperlipidemia (7) Murmur Status: Chronic (8) Osteoarthritis Status: Chronic Qualifiers: Qualified Codes: M19.90 - Unspecified osteoarthritis, unspecified site (9) GERD (gastroesophageal reflux disease) Status: Chronic Qualifiers: Qualified Codes: K21.9 - Gastro-esophageal reflux disease without esophagitis (10) Hypertension Status: Chronic Qualifiers: Qualified Codes: I10 - Essential (primary) hypertension (11) Valvular heart disease Status: Chronic (12) Postoperative anemia Status: Acute (13) Marley catheter in place Status: Acute (14) Advanced age Status: Chronic Clinical Quality Measures DVT/VTE Risk/Contraindication: Risk Factor Score Per Nursin RFS Level Per Nursing on Admit: 4+=Very High SHAWNA ADEN DO Dec 03, 2018 08:13
--- NOTE | 2018-12-03 09:42 | Therapy Group Daily Note ---
Therapy Daily Group Note Patient Education Topic Other List Below (ARU orientation, transfers/bed mobility) Exercises LE Seated Exercise, UE Exercise Session Ratio (pt:therapist): 3:1 Goal of Session: Education on ARU Expectations, UE/LE Strengthing, Safety with Transfers Goal Met for this Session: Yes Pt Benefit of Group: Contributions to Others, Increased Functional Strength, Improved Cognition, Recognition of Peers, Socialization Other/Notes LATE ENTRY FOR 12/02/2018-Pt ambulated using FWW to OT/PT group. Group consisted of introduction (name, place living, favorite school activity), socialization, ARU orientation, UE/LE seated exercises and transfer/bed mobility education. Pt introduced self appropriately and actively listened to peers. Pt contributed to conversations and initiated responses to educational topics. Pt demonstrated understanding of group educational topics with affirmative gestures and verbalizing understanding. Pt completed UE/LE seated exercises and tolerated well. After therapy, pt lying in bed with call light/phone in reach. All needs met in room. Start Time: 13:00 Stop Time: 14:10 Total Billed Treatment Time: 70 Total Billed Treatment 1-GRP ROSANNE LYNCH Dec 03, 2018 09:41
--- NOTE | 2018-12-03 11:05 | Therapy Team Discharge Summary ---
Therapy Discharge Summary Discharge Recommendations Date of Discharge Dec 03, 2018 at 09:54 Physical Therapy Patient came to rehab with a right THR. Upon evaluation patient performed bed mobility with min assist, supine to sit with min assist, sit to stand with CGA, transfers with CGA, car transfer CGA, ambulated 50' with a rolling walker with CGA, and went up and down 1 step using a rolling walker with CGA. Patient has been performing bed mobility and transfer training, balance and endurance training, functional strengthening, stair training, gait training, and edu cation. 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 Now, patient performs bed mobility with mod I, supine <-> sit with mod I, sit <- > stand with mod I, transfers with mod I, car transfer mod I, ambulates 250' with a rolling walker with mod I (including 50' with at least 2 turns of 90 degrees and 10' over an uneven surface). Patient has been discharged from this facility today and will be discharged from PT at this time. Occupational Therapy Decreased Activ Tolerance, Impaired Funct Balance, Impaired I ADL's, Impaired Self-Care Skills PT Race Relations Adviser Goals Race Relations Adviser Goals PT Fpc Goals Time Frame: Dec 06, 2018 Transfers (B,C,W/C) (FIM): 7 Roll Left to Right (QC): 6 Sit to Lying (QC): 6 Lying-Sitting on Side/Bed(QC): 6 Sit to Stand (QC): 6 Chair/Ouv-nq-Nfqyo Xfer(QC): 6 Car Transfer (QC): 6 Does the Patient Walk: Yes Gait (FIM): 6 Gait distance (FIM): 3=150 ft Walk 10 feet (QC): 6 Walk 10ft-Uneven Surface(QC): 6 Walk 50ft with 2 Turns (QC): 6 Walk 150 ft (QC): 6 Gait Assistive Device: FWW Does the Pt use WC or Scooter?: No Stairs (FIM): 5 # of Steps: 4 1 Step (curb) (QC): 6 4 Steps (QC): 6 12 Steps (QC): 9 Picking up an Object (QC): 88 OT Race Relations Adviser Goals Race Relations Adviser Goals Time Frame: Dec 13, 2018 Eating (FIM): 7 (met) Eating (QC): 6 (met) Oral Hygiene (QC): 6 Grooming(FIM): 6 Bathing(FIM): 5 (met) Bathing Location: L Arm, R Arm, L Upper Leg, R Upper Leg, L Lower Leg (including foot), R Lower Leg (including foot), Chest, Abdomen, Buttocks, Perineal Area Shower/Bathe Self (QC): 5 (met) Upper Body Dressing(FIM): 6 (met) Upper Body Dressing (QC): 6 (met) Lower Body Dressing(FIM): 6 Lower Body Dressing (QC): 6 On/Off Footwear (QC): 6 Toileting(FIM): 6 Toileting Hygiene (QC): 6 Transfers (B,C,W/C) (FIM): 6 Toilet/Commode Transfer(FIM): 6 Toilet/Commode Transfer (QC): 6 Shower Transfer(FIM): 5 (met) Additional Goals: 1-Demonstrate ADL Tasks, 2-Verbalize Understanding, 3-Impr oveStrength/[place] 1=Demonstrate adherence to instructed precautions during ADL tasks. 2=Patient will verbalize/demonstrate understanding of assistive devices/modifications for ADL. 3=Patient will improve strength/tolerance for activity to enable patient to perform ADL's. Speech Fpc Goals Race Relations Adviser Goals The patient will improve his cognitive level of function so that he may return home safely. LEANNE BERRY PT Dec 03, 2018 11:05
--- NOTE | 2018-12-03 14:01 | Therapy Team Discharge Summary ---
Therapy Discharge Summary Discharge Recommendations Date of Discharge Dec 03, 2018 at 09:54 Occupational Therapy Pt admitted as R ANNIKA, admit FIMs: eat 7, bathing 4, UB dress 5, LB dress 2, t oileting 4, transfers 4, toilet transfers 4, shower transfers 4. Pt and OT worked toward greater IND within I/ADL tasks through skilled training of AE, strengthening/ endurance exercises, and safety intervention. Pt greatly improved on ADL tasks, including LB dressing and safety with intervention. Pt d/c FIMs: eating 6, bathing 5, UB dress 6, LB dress 5, toileting 5, transfers 5, toilet transfers 5, shower transfers 5. Recommended equipment for increased IND at home includes: dressing stick, long handled sponge. Pt owns shower chair and grab bars within shower. Pt plans to return home with support, pt's home with pt at all times. Pt has demonstrated increased knowledge and safety during OT treatment session, no further recommendations at this time. Decreased Activ Tolerance, Impaired Funct Balance, Impaired I ADL's, Impaired Self-Care Skills PT Fireman Helper Goals Intermediate Goals PT Intermediate Goals Time Frame: Dec 06, 2018 Transfers (B,C,W/C) (FIM): 7 Roll Left to Right (QC): 6 Sit to Lying (QC): 6 Lying-Sitting on Side/Bed(QC): 6 Sit to Stand (QC): 6 Chair/Qri-at-Ltkgl Xfer(QC): 6 Car Transfer (QC): 6 Does the Patient Walk: Yes Gait (FIM): 6 Gait distance (FIM): 3=150 ft Walk 10 feet (QC): 6 Walk 10ft-Uneven Surface(QC): 6 Walk 50ft with 2 Turns (QC): 6 Walk 150 ft (QC): 6 Gait Assistive Device: FWW Does the Pt use WC or Scooter?: No Stairs (FIM): 5 # of Steps: 4 1 Step (curb) (QC): 6 4 Steps (QC): 6 12 Steps (QC): 9 Picking up an Object (QC): 88 OT Intermediate Goals Fireman Helper Goals Time Frame: Dec 13, 2018 Eating (FIM): 7 (met) Eating (QC): 6 (met) Oral Hygiene (QC): 6 Grooming(FIM): 6 Bathing(FIM): 5 (met) Bathing Location: L Arm, R Arm, L Upper Leg, R Upper Leg, L Lower Leg (including foot), R Lower Leg (including foot), Chest, Abdomen, Buttocks, Perineal Area Shower/Bathe Self (QC): 5 (met) Upper Body Dressing(FIM): 6 (met) Upper Body Dressing (QC): 6 (met) Lower Body Dressing(FIM): 6 Lower Body Dressing (QC): 6 On/Off Footwear (QC): 6 Toileting(FIM): 6 Toileting Hygiene (QC): 6 Transfers (B,C,W/C) (FIM): 6 Toilet/Commode Transfer(FIM): 6 Toilet/Commode Transfer (QC): 6 Shower Transfer(FIM): 5 (met) Additional Goals: 1-Demonstrate ADL Tasks, 2-Verbalize Understanding, 3- ImproveStrength/Lizet 1=Demonstrate adherence to instructed precautions during ADL tasks. 2=Patient will verbalize/demonstrate understanding of assistive devices/modifications for ADL. 3=Patient will improve strength/tolerance for activity to enable patient to perform ADL's. Speech Fireman Helper Goals Fireman Helper Goals The patient will improve his cognitive level of function so that he may return home safely. GAUDENCIO VALENZUELA OTR Dec 03, 2018 14:01
[2018-12-03] MEDS ORDERED: RT-ADVAIR HFA 45/21 MCG PER PUFF IH ONE (19:25)
--- NOTE | 2018-12-04 08:57 | Therapy Team Discharge Summary ---
Therapy Discharge Summary Discharge Recommendations Date of Discharge Dec 03, 2018 at 09:54 Occupational Therapy Decreased Activ Tolerance, Impaired Funct Balance, Impaired I ADL's, Impaired Self-Care Skills Speech-Language Pathology The patient was admitted to the ARU s/p hip surgery. He was evaluated with the KRUNALUMS to determine cognitive function. His scores indicated he demo mild cognitive deficits. The patient received skilled ST services for improving cognitive function with safety as the focus. The patient was able to meet all goals and improved cognitive function. He was discharged to home on 12/03/18. He was discharged from ST at that time as well. PT Teaching Pastor Goals Group Home Goals PT Group Home Goals Time Frame: Dec 06, 2018 Transfers (B,C,W/C) (FIM): 7 Roll Left to Right (QC): 6 Sit to Lying (QC): 6 Lying-Sitting on Side/Bed(QC): 6 Sit to Stand (QC): 6 Chair/Wzb-hd-Tlejf Xfer(QC): 6 Car Transfer (QC): 6 Does the Patient Walk: Yes Gait (FIM): 6 Gait distance (FIM): 3=150 ft Walk 10 feet (QC): 6 Walk 10ft-Uneven Surface(QC): 6 Walk 50ft with 2 Turns (QC): 6 Walk 150 ft (QC): 6 Gait Assistive Device: FWW Does the Pt use WC or Scooter?: No Stairs (FIM): 5 # of Steps: 4 1 Step (curb) (QC): 6 4 Steps (QC): 6 12 Steps (QC): 9 Picking up an Object (QC): 88 OT Teaching Pastor Goals Group Home Goals Time Frame: Dec 13, 2018 Eating (FIM): 7 (met) Eating (QC): 6 (met) Oral Hygiene (QC): 6 Grooming(FIM): 6 Bathing(FIM): 5 (met) Bathing Location: L Arm, R Arm, L Upper Leg, R Upper Leg, L Lower Leg (including foot), R Lower Leg (including foot), Chest, Abdomen, Buttocks, Perineal Area Shower/Bathe Self (QC): 5 (met) Upper Body Dressing(FIM): 6 (met) Upper Body Dressing (QC): 6 (met) Lower Body Dressing(FIM): 6 Lower Body Dressing (QC): 6 On/Off Footwear (QC): 6 Toileting(FIM): 6 Toileting Hygiene (QC): 6 Transfers (B,C,W/C) (FIM): 6 Toilet/Commode Transfer(FIM): 6 Toilet/Commode Transfer (QC): 6 Shower Transfer(FIM): 5 (met) Additional Goals: 1-Demonstrate ADL Tasks, 2-Verbalize Understanding, 3- ImproveStrength/Lizet 1=Demonstrate adherence to instructed precautions during ADL tasks. 2=Patient will verbalize/demonstrate understanding of assistive devices/modifications for ADL. 3=Patient will improve strength/tolerance for activity to enable patient to perform ADL's. Speech Group Home Goals Teaching Pastor Goals The patient will improve his cognitive level of function so that he may return home safely. Met TATA RODRIGUEZ Dec 04, 2018 08:57
--- NOTE | 2018-12-11 12:08 | Physician Query Clarification ---
PQ-Intro New Diagnosis Admission/Discharge Admission Date: Nov 22, 2018 at 12:09 Discharge Date: Dec 03, 2018 at 09:54 The medical record reflects the following clinical scenario: History/Risk Factors: Osteoarthritis Clinical Findings: debility Treatment: Rt THR Question: What condition best reflects the above clinical scenario? Please document a response in the Progress Noter or Discharge Summary. 1. Osteoarthritis rt hip 2. s/p Rt total hip unknown reason 3. Other, with explanation of the clinical findings. 4. Clinically undetermined, no explanation for the clinical findings. PHYSICIAN RESPONSE What condition reflects above: 1 Please remember a lack of response to the above will prompt a phone page by CDI/Coding staff. In responding to this query, please exercise your independent professional judgment. The purpose of this communication is to more accurately reflect the complexity of your patients condition. The fact that a question is asked does not imply that any particular answer is desired or expected. Thank you for your timely response to this clarification. Requestors name: Huang THIS PHYSICIAN QUERY FORM IS A PERMANENT PART OF THE MEDICAL RECORD HUANG KWONG Dec 11, 2018 12:08 SHAWNA ADEN DO Dec 11, 2018 20:55
--- NOTE | 2018-12-11 12:14 | Physician Query Clarification ---
PQ-Further Specificity Admission/Discharge Admission Date: Nov 22, 2018 at 12:09 Discharge Date: Dec 03, 2018 at 09:54 The medical record reflects the following clinical scenario: History/Risk Factors: postop acute on chronic anemia Clinical Findings: Hgb 8.7, Hct 27 Treatment: Niferex Question: Can you further specify postop acute on chronic anemia per the clinical indicators above? Please document a response in the Progress Notes or Discharge Summary. 1. acute blood loss anemia 2. postop acute on chronic anemia not further specified 3. Other, with explanation of the clinical findings. 4. Clinically undetermined, no explanation for the clinical findings. PHYSICIAN RESPONSE Can you specify per above: 1 Please remember a lack of response to the above will prompt a phone page by CDI/Coding staff. In responding to this query, please exercise your independent professional judgment. The purpose of this communication is to more accurately reflect the complexity of your patients condition. The fact that a question is asked does not imply that any particular answer is desired or expected. Thank you for your timely response to this clarification. Requestors name: Huang THIS PHYSICIAN QUERY FORM IS A PERMANENT PART OF THE MEDICAL RECORD HUANG KWONG Dec 11, 2018 12:14 SHAWNA ADEN DO Dec 11, 2018 20:55
== END 2018-12-03 09:54 | disposition home health service (06) | DRG 560 ==
PROVIDERS: ADMIT Internal Medicine; ATTEND Internal Medicine
DX: Z47.1 Aftercare following joint replacement surgery (principal); Z96.641 Presence of right artificial hip joint; I48.0 Paroxysmal atrial fibrillation; R33.9 Retention of urine, unspecified; D62 Acute posthemorrhagic anemia; I25.10 Atherosclerotic heart disease of native coronary artery without angina pectoris; I35.0 Nonrheumatic aortic (valve) stenosis; G47.33 Obstructive sleep apnea (adult) (pediatric); I12.9 Hypertensive chronic kidney disease with stage 1 through stage 4 chronic kidney disease, or unspecified chronic kidney disease; N18.9 Chronic kidney disease, unspecified; E78.2 Mixed hyperlipidemia; N40.1 Benign prostatic hyperplasia with lower urinary tract symptoms; K21.9 Gastro-esophageal reflux disease without esophagitis; M19.90 Unspecified osteoarthritis, unspecified site; M10.9 Gout, unspecified; Z85.72 Personal history of non-Hodgkin lymphomas; Z85.46 Personal history of malignant neoplasm of prostate; Z90.79 Acquired absence of other genital organ(s); Z97.4 Presence of external hearing-aid
CPT/HCPCS: 36415; 80053; 85025; 93005; 93306; 94640; 94664; 94760

== ENCOUNTER 2019-05-27 20:17 | Observation (INO) | payer MEDICARE, OTHER ==
[~2019-05-27] VITALS: Ht 167.7 cm; Wt 79.8 kg
[~2019-05-27 20:17] MED LIST changes: +ACET-2267 PO; -ACETAMINOPHEN 500 MG TAB (TYLENOL) PO PRN; +ALLO300T2 PO; +APIX2.5T PO; +ATOR40TA70 PO; -CALCIUM CARBONATE 500 MG (TUMS) TAB.CHEW PO PRN; +CARB15DR OU; +CARV6.252 PO; +CHOL10007 PO; +DICL100G31 TOP; +DIPH-581 PO; +DOCU100C37 PO; -DOCUSATE SODIUM 100 MG (COLACE) CAP PO PRN; +FISH12002 PO; +FLUT1DIS28 IH; +FLUT9.9S NS; +FURO20TA4 PO; +HYLAND'S LEG CRAMPS SL; +IRON150C3 PO; -LACTULOSE SYRUP 10GM/15ML (ENULOSE) 30ML UDC PO PRN; -LOPERAMIDE 2 MG (IMODIUM) TABLET PO PRN; -MELATONIN 3 MG TABLET PO PRN; +METH2.5T PO; +OMEP40CA27 PO; -ONDANSETRON 4 MG (ZOFRAN) ORAL DISSOLVE TAB PO PRN; -ONDANSETRON 4 MG/2 ML (SDV) Z0FRAN IVP PRN; +OXYC-471 PO; +OXYC-529 PO; +PANT40TA2 PO; +PEDI18TA2 PO; +POTA10TA6 PO; +PRED5TAB PO; +TMSL.4C PO; +TRM50T PO; +VIT1CAPS44 PO; +VITA1CAP PO; +ZINC50TA51 PO; -diphenhydrAMINE 25 MG TAB (BENADRYL) PO PRN
[2019-05-27] MEDS ORDERED: NS IV 500 ML 500 ML IV ONE (20:33)
--- NOTE | 2019-05-27 20:40 | ED Chest Pain ---
General Chief Complaint: Cardiac/General Problems Stated Complaint: RAPID HEARTBEAT Nursing Triage Note: Pt ambulates to RM 6 with c/o heart palpitations, SOB and blurry vision x 1 hr. Pt denies any chest pain at this time. PT reports Hx of Atrial fibrilation and has been cardioverted 3 times. Nursing Sepsis Screen: No Definite Risk Source: patient, family (daughter) Exam Limitations: no limitations History of Present Illness Date Seen by Provider: May 27, 2019 Time Seen by Provider: 20:19 Initial Comments The patient presents the ER by private conveyance from home with chief complaint that this morning he woke up with some rapid palpitations and chest pain that nunez s progressively gotten worse over the day. He says the last couple hours and has been enough to make him come to the ER. He says in the past she's had to be electro cardioverted. He follows with Dr. Vera, cardiology in [place] and Dr. Ramirez and Sonja for primary care. He denies having history of heart attacks or stents but he does take Eliquis for dinner. He says he is taking his medications routinely and has not missed any doses. He says he gets short of breath when the palpitations are bad. He has a history of asthma but has not been taking his inhaler any more than usual. He is not having any nausea sweats fever but he does feel his ears or plugged up but wears bilateral hearing aids. He is on methotrexate and prednisone 5 mg daily for rheumatoid arthritis. Allergies and Home Medications Allergies Coded Allergies: gemfibrozil (Verified Allergy, Unknown, 05/27/19) valdecoxib (Verified Allergy, Unknown, 05/27/19) Home Medications Acetaminophen 500 Mg Tablet, 1,000 MG PO HS, (Reported) Allopurinol 300 Mg Tablet, 300 MG PO DAILY, (Reported) Apixaban 2.5 Mg Tablet, 2.5 MG PO BID, (Reported) Atorvastatin Calcium 40 Mg Tablet, 40 MG PO HS, (Reported) Carboxymethylcellulose Sodium 15 Ml Drops, 1 DROP OU BID, (Reported) Carvedilol 6.25 Mg Tablet, 6.25 MG PO BID, (Reported) Cholecalciferol (Vitamin D3) 1,000 Unit Capsule, 1,000 UNIT PO DAILY, (Reported) Diclofenac Sodium 100 Gm Gel..gram., 4 GM TOP QID PRN for HIP PAIN, (Reported) Diphenhydramine HCl 25 Mg Capsule, 25 MG PO HS PRN for ALLERGIES, (Reported) Docusate Sodium 100 Mg Capsule, 100 MG PO BID PRN for CONSTIPATION-1ST LINE Prescribed by: SHAWNA ADEN on 12/02/182120 Fish Oil/Borage/Flax/Om3,6,9#1 1,200 Mg Capsule, 1,200 MG PO DAILY, (Reported) Fluticasone Propionate 9.9 Ml Folcroft.susp, 1 SPRAY NS HS PRN for ALLERGIES, (Reported) Fluticasone/Salmeterol 1 Each Blst.w.dev, 1 PUFF IH BID, (Reported) Furosemide 20 Mg Tablet, 20 MG PO HS, (Reported) Iron Polysaccharide Complex 150 Mg Capsule, 150 MG PO BID WITH MEALS Prescribed by: SHAWNA ADEN on 12/02/182120 Methotrexate Sodium 2.5 Mg Tablet, 7.5 MG PO WEEK, (Reported) TAKES 3 (2.5MG) TABLETS Omeprazole 40 Mg Capsule.dr, 40 MG PO DAILY, (Reported) Oxycodone HCl 5 Mg Tablet, 5 MG PO Q6H PRN for PAIN-SEVERE Prescribed by: SHAWNA ADEN on 12/02/182120 Pedi Mv No.79/Ferrous Fumarate 18 Mg Tab.chew, 18 MG PO DAILY, (Reported) Potassium Chloride 10 Meq Tablet.er, 10 MEQ PO DAILY@0700 Prescribed by: SHAWNA ADEN on 12/02/182120 Prednisone 5 Mg Tablet, 2.5 MG PO Q48H, (Reported) TAKES 1/2 (5MG) TABLET Tamsulosin HCl 0.4 Mg Cap, 0.4 MG PO HS, (Reported) Tramadol HCl 50 Mg Tablet, 50 MG PO Q6H PRN for PAIN-MILD Prescribed by: SHAWNA ADEN on 12/02/182120 Vit C/E/Zn/Coppr/Lutein/Zeaxan 1 Each Capsule, 1 CAP PO DAILY, (Reported) Vitamin B Complex 1 Each Capsule, 1 CAP PO DAILY, (Reported) Zinc Amino Acid Chelate 50 Mg Tablet, 50 MG PO DAILY, (Reported) [Jessy's Leg Cramps] , 1 TAB SL HS PRN for CRAMPS, (Reported) Patient Home Medication List Home Medication List Reviewed: Yes Review of Systems Review of Systems Constitutional: No chills, No diaphoresis EENTM: Blurred Vision; No Double Vision, No Eye Pain Respiratory: Denies Cough; Shortness of Air Cardiovascular: See HPI, Chest Pain; Denies Edema, Denies Lightheadedness; Palpitations; Denies Syncope Gastrointestinal: Denies Abdominal Pain, Denies Constipated, Denies Diarrhea, Denies Nausea Genitourinary: Denies Burning, Denies Discharge Musculoskeletal: No back pain, No joint pain Psychiatric/Neurological: Denies Anxiety, Denies Depressed All Other Systems Reviewed Negative Unless Noted: Yes Past Rvhvwjd-Hmefqg-Bxbzxw Hx Patient Social History Alcohol Use: Denies Use Recreational Drug Use: No Smoking Status: Former Smoker Former Smoker, Quit: Nov 22, 1972 2nd Hand Smoke Exposure: No Recent Foreign Travel: No Contact w/Someone Who Travel: No Recent Infectious Disease Expo: No Recent Hopitalizations: No Immunizations Up To Date Tetanus Booster (TDap): Unknown Date of Pneumonia Vaccine: Nov 17, 2010 Date of Influenza Vaccine: Nov 18, 2018 Seasonal Allergies Seasonal Allergies: Yes Past Medical History Surgeries: Yes Orthopedic COPD Currently Using CPAP: Yes Currently Using BIPAP: No Atrial Fibrillation, Coronary Artery Disease, Heart Murmur, High Cholesterol, Hypertension, Valvular Heart Disease Neurological: No Benign Prostatic Hyperpl, Renal Failure Gastrointestinal: Yes Gastroesophageal Reflux Musculoskeletal: No Arthritis, Gout Endocrine: No HEENT: Yes Hearing Impairment: Bilateral Hearing Aide Cancer: Yes Prostate, Lymphoma What Type of Treatment Did You: Radiation Psychosocial: No Integumentary: Yes (DERMATITIS ON FACE) Blood Disorders: Yes Adverse Reaction/Blood Tranf: Yes (THINKS HE HAS HAD A RXN, BUT UNSURE WHAT) Family Medical History Cardiovascular disease 19 MOTHER Diabetes mellitus 19 MOTHER FH: prostate cancer G8 BROTHER Myocardial infarction 19 FATHER Physical Exam Vital Signs Vital Signs - First Documented 05/27/19 20:25 Temp 36.3 Pulse 61 Resp 20 B/P (MAP) 171/85 (113) Pulse Ox 95 O2 Delivery Room Air Capillary Refill : Less Than 3 Seconds Height, Weight, BMI Height: 5'6.00" Weight: 173lbs. 6.4oz. [id number]; 27.00 BMI Method: General Appearance: No Apparent Distress, WD/WN HEENT: PERRL/EOMI, TMs Normal (bilateral hearing aids in place), Normal ENT Inspection, Pharynx Normal, Moist Mucous Membranes Neck: Full Range of Motion, Normal Inspection Respiratory: Lungs Clear, Normal Breath Sounds, No Accessory Muscle Use, No Respiratory Distress Cardiovascular: Regular Rate, Rhythm, No Edema, Normal Peripheral Pulses Gastrointestinal: Normal Bowel Sounds, Non Tender, Soft Extremity: Normal Capillary Refill, Normal Inspection, Normal Range of Motion, Non Tender, No Calf Tenderness, No Pedal Edema Neurologic/Psychiatric: Alert, Oriented x3; No No Motor/Sensory Deficits (hard of hearing bilaterally); Normal 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, 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 Norm as Tested Skin: Normal Color, Warm/Dry Progress/Results/Core Measures Results/Orders Lab Results Laboratory Tests Test 05/27/19 20:32 05/27/19 21:23 Range/Units White Blood Count 11.1 H 4.3-11.0 10^3/uL Red Blood Count 3.83 L 4.35-5.85 10^6/uL Hemoglobin 13.1 L 13.3-17.7 G/DL Hematocrit 39 L 40-54 % Mean Corpuscular Volume 101 H 80-99 FL Mean Corpuscular Hemoglobin 34 25-34 PG Mean Corpuscular Hemoglobin Concent 34 32-36 G/DL Red Cell Distribution Width 15.7 H 10.0-14.5 % Platelet Count 174 130-400 10^3/uL Mean Platelet Volume 10.0 7.4-10.4 FL Neutrophils (%) (Auto) 60 42-75 % Lymphocytes (%) (Auto) 30 12-44 % Monocytes (%) (Auto) 9 0-12 % Eosinophils (%) (Auto) 1 0-10 % Basophils (%) (Auto) 0 0-10 % Neutrophils # (Auto) 6.7 1.8-7.8 X 10^3 Lymphocytes # (Auto) 3.3 1.0-4.0 X 10^3 Monocytes # (Auto) 1.0 0.0-1.0 X 10^3 Eosinophils # (Auto) 0.1 0.0-0.3 10^3/uL Basophils # (Auto) 0.0 0.0-0.1 10^3/uL Prothrombin Time 14.9 H 12.2-14.7 SEC INR Comment 1.1 0.8-1.4 Activated Partial Thromboplast Time 28 24-35 SEC Sodium Level 139 135-145 MMOL/L Potassium Level 4.1 3.6-5.0 MMOL/L Chloride Level 105 98-107 MMOL/L Carbon Dioxide Level 21 21-32 MMOL/L Anion Gap 13 5-14 MMOL/L Blood Urea Nitrogen 28 H 7-18 MG/DL Creatinine 1.52 H 0.60-1.30 MG/DL Estimat Glomerular Filtration Rate 44 BUN/Creatinine Ratio 18 Glucose Level 123 H 70-105 MG/DL Calcium Level 9.4 8.5-10.1 MG/DL Corrected Calcium 9.4 8.5-10.1 MG/DL Magnesium Level 1.8 1.6-2.4 MG/DL Total Bilirubin 0.6 0.1-1.0 MG/DL Aspartate Amino Transf (AST/SGOT) 26 5-34 U/L Alanine Aminotransferase (ALT/SGPT) 28 0-55 U/L Alkaline Phosphatase 80 40-136 U/L Myoglobin 126.4 H 10.0-92.0 NG/ML Troponin I 0.048 H <0.028 NG/ML Total Protein 6.9 6.4-8.2 GM/DL Albumin 4.0 3.2-4.5 GM/DL Urine Color YELLOW Urine Clarity CLEAR Urine pH 6.0 5-9 Urine Specific Brielle <=1.005 1.016-1.022 Urine Protein NEGATIVE NEGATIVE Urine Glucose (UA) NEGATIVE NEGATIVE Urine Ketones NEGATIVE NEGATIVE Urine Nitrite NEGATIVE NEGATIVE Urine Bilirubin NEGATIVE NEGATIVE Urine Urobilinogen 0.2 < = 1.0 MG/DL Urine Leukocyte Esterase NEGATIVE NEGATIVE Urine RBC (Auto) NEGATIVE NEGATIVE Urine RBC NONE /HPF Urine WBC NONE /HPF Urine Crystals NONE /LPF Urine Bacteria TRACE /HPF Urine Casts NONE /LPF Urine Mucus NEGATIVE /LPF Urine Culture Indicated NO My Orders Orders - AMBER,VERN J Ekg Tracing (05/27/19 20:21) Cbc With Automated Diff (05/27/19 20:33) Magnesium (05/27/19 20:33) Chest 1 View, Ap/Pa Only (05/27/19 20:33) Comprehensive Metabolic Panel (05/27/19 20:33) Myoglobin Serum (05/27/19 20:33) Protime With Inr (05/27/19 20:33) Partial Thromboplastin Time (05/27/19 20:33) O2 (05/27/19 20:33) Monitor-Rhythm Ecg Trace Only (05/27/19 20:33) Ed Iv/Invasive Line Start (05/27/19 20:33) Aspirin Chewable Tablet (Baby Aspirin Ch (05/27/19 20:45) Ed Iv/Invasive Line Start (05/27/19 20:33) Ns Iv 500 Ml (Sodium Chloride 0.9%) (05/27/19 20:33) Troponin I (05/27/19 20:32) Acetaminophen Tablet (Tylenol Tablet) (05/27/19 21:30) Ua Culture If Indicated (05/27/19 21:25) Medications Given in ED Current Medications Medications Dose Ordered Sig/Yonny Route Start Time Stop Time Status Last Admin Dose Admin Acetaminophen 1,000 mg ONCE ONCE PO 05/27/19 21:30 05/27/19 21:31 DC 05/27/19 21:31 1,000 MG Aspirin 324 mg ONCE ONCE PO 05/27/19 20:45 05/27/19 20:46 DC 05/27/19 20:37 324 MG Sodium Chloride 500 ml @ 0 mls/hr Q0M ONCE IV 05/27/19 20:33 05/27/19 20:35 DC 05/27/19 20:38 0 MLS/HR Vital Signs/I&O 05/27/19 20:25 Temp 36.3 Pulse 61 Resp 20 B/P (MAP) 171/85 (113) Pulse Ox 95 O2 Delivery Room Air 05/28/19 00:00 Intake Total 500 ml Balance 500 ml Blood Pressure Mean: 113 Progress Progress Note #1: Time: 20:39 Progress Note Plan to give him 325 mg aspirin to chew and swallow. Check an influenza swab, BNP get a chest x-ray or cardiac workup. At this time he is not in a rapid heart rate however it's possible he has paroxysmal atrial fibrillation with rapid ventricular response. 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 Right now his heart rates in the 60s. Progress Note #2: Time: 22:05 Progress Note The patient is not having any chest pain discussed as he still feels very poorly. Troponin is marginally elevated and could be from a run of A. fib with RVR paroxysmally that we have not detected or could be an indicator of coronary disease. He says been many years since he's had a heart catheterization by Dr. Vera. We do not have us to review kylee. Would recommend that he stay overnight for trending troponins and the patient agrees with this plan. Initial ECG Impression Date: May 27, 2019 Initial ECG Impression Time: 20:22 Initial ECG Rate: 65 Initial ECG Rhythm: Normal Sinus Initial ECG Intervals: Normal Initial ECG Impression: Normal Comment Sinus rhythm without clinically relevant ST elevation or depression. Diagnostic Imaging Diagonstic Imaging: Xray Plain Films/CT/US/NM/MRI: chest (1v) Comments No acute cardiopulmonary processes on one view chest x-ray Reviewed: Reviewed by Me Departure Communication (Admissions) Time/Spoke to Admitting Phy: 22:00 Discussed the case with Dr. Park and she agrees to observe the patient and trending troponins. Time/Spoke to Consulting Phy: 22:00 Discussed the case with Dr. Vlilegas and he agrees with trending troponins. Impression Primary Impression: Palpitations Additional Impressions: Chest pain Qualified Codes: R07.9 - Chest pain, unspecified Elevated troponin I level Disposition: ADMITTED INPATIENT Condition: Stable Admissions Decision to Admit Reason: Admit from ER (General) Decision to Admit/Date: May 27, 2019 Time/Decision to Admit Time: 21:45 Departure-Patient Inst. Referrals: NO,LOCAL PHYSICIAN (PCP/Family) Primary Care Physician VERN CALRK May 27, 2019 20:40
[2019-05-27 20:42] LABS: BASOPHILS % (AUTO) 0 % (0-10); EOSINOPHILS # (AUTO) 0.1 10^3/uL (0.0-0.3); EOSINOPHILS % (AUTO) 1 % (0-10); HEMATOCRIT 39 % (40-54); HEMOGLOBIN 13.1 G/DL (13.3-17.7); LYMPHOCYTES # (AUTO) 3.3 X 10^3 (1.0-4.0); LYMPHOCYTES % (AUTO) 30 % (12-44); MEAN CORPUSCULAR HEMOGLOBIN 34 PG (25-34); MEAN CORPUSCULAR HGB CONC 34 G/DL (32-36); MEAN CORPUSCULAR VOLUME 101 FL (80-99); MONOCYTES % (AUTO) 9 % (0-12); NEUTROPHILS # (AUTO) 6.7 X 10^3 (1.8-7.8); NEUTROPHILS % (AUTO) 60 % (42-75); PLATELET COUNT 174 10^3/uL (130-400); RED CELL DISTRIBUTION WIDTH 15.7 % (10.0-14.5); WHITE BLOOD COUNT 11.1 10^3/uL (4.3-11.0)
[2019-05-27] MEDS ORDERED: ASPIRIN 81 MG CHEW (CHILDREN'S ASA) PO ONE (20:45)
[2019-05-27 20:52] LABS: INR 1.1 (0.8-1.4); PROTHROMBIN TIME PATIENT 14.9 SEC (12.2-14.7)
[2019-05-27 20:58] LABS: BILIRUBIN,TOTAL 0.6 MG/DL (0.1-1.0); CALCIUM 9.4 MG/DL (8.5-10.1); CREATININE SERUM 1.52 MG/DL (0.60-1.30); MAGNESIUM 1.8 MG/DL (1.6-2.4); POTASSIUM 4.1 MMOL/L (3.6-5.0); TOTAL PROTEIN 6.9 GM/DL (6.4-8.2)
[2019-05-27 21:30] LABS: BILIRUBIN,URINE NEGATIVE (NEGATIVE); CLARITY,URINE CLEAR; COLOR,URINE YELLOW; GLUCOSE, URINE (UA) NEGATIVE (NEGATIVE); KETONES,URINE NEGATIVE (NEGATIVE); LEUKOCYTE ESTERASE ,URINE NEGATIVE (NEGATIVE); NITRITE,URINE NEGATIVE (NEGATIVE); PROTEIN,URINE NEGATIVE (NEGATIVE)
[2019-05-27] MEDS ORDERED: ACETAMINOPHEN 500 MG TAB (TYLENOL) PO ONE (21:30)
[2019-05-27 21:37] LABS: BACTERIA,URINE TRACE /HPF
[2019-05-27 22:42] VITALS: BP 167/84
[2019-05-27 22:45] VITALS: BP 157/81
[2019-05-27 23:00] VITALS: BP 160/74
[2019-05-27] MEDS ORDERED: NITROGLYCERIN 0.4 MG SL TABS BTL 25'S SL PRN (23:00)
[2019-05-27] MEDS ORDERED: ACETAMINOPHEN 325 MG TABLET PO PRN (23:00)
[2019-05-27] MEDS ORDERED: ONDANSETRON 4 MG/2 ML (SDV) Z0FRAN IV PRN (23:00)
[2019-05-27] MEDS ORDERED: morphine INJ 4 MG/ML 1 ML (VIAL/SYRINGE) IV PRN (23:00)
[2019-05-27 23:15] VITALS: BP 158/78
[2019-05-27 23:30] VITALS: BP 162/74
[2019-05-27 23:45] VITALS: BP 160/77
[2019-05-28] VITALS (8 sets, daily range): BP systolic 140–171; BP diastolic 66–86
[2019-05-28] MEDS ORDERED: RT-ALBUTEROL/IPRATROPIUM 3 ML (DUONEB) VIAL INH PRN (00:30)
[2019-05-28 02:50] LABS: BASOPHILS % (AUTO) 0 % (0-10); EOSINOPHILS # (AUTO) 0.2 10^3/uL (0.0-0.3); EOSINOPHILS % (AUTO) 2 % (0-10); HEMATOCRIT 37 % (40-54); HEMOGLOBIN 12.2 G/DL (13.3-17.7); LYMPHOCYTES # (AUTO) 3.2 X 10^3 (1.0-4.0); LYMPHOCYTES % (AUTO) 32 % (12-44); MEAN CORPUSCULAR HEMOGLOBIN 34 PG (25-34); MEAN CORPUSCULAR HGB CONC 33 G/DL (32-36); MEAN CORPUSCULAR VOLUME 101 FL (80-99); MONOCYTES # (AUTO) 0.9 X 10^3 (0.0-1.0); MONOCYTES % (AUTO) 9 % (0-12); NEUTROPHILS # (AUTO) 5.6 X 10^3 (1.8-7.8); NEUTROPHILS % (AUTO) 57 % (42-75); PLATELET COUNT 156 10^3/uL (130-400); RED CELL DISTRIBUTION WIDTH 15.6 % (10.0-14.5); WHITE BLOOD COUNT 9.8 10^3/uL (4.3-11.0)
[2019-05-28 03:12] LABS: CREATININE SERUM 1.37 MG/DL (0.60-1.30); POTASSIUM 3.9 MMOL/L (3.6-5.0)
--- NOTE | 2019-05-28 06:25 | NUR ---
THIS RN DID NOT GIVE 0700 DOSE OF PREDNISONE D/T PT BEING NPO.
[2019-05-28] MEDS ORDERED: predniSONE 5 MG TAB PO SCH (07:00)
--- NOTE | 2019-05-28 07:49 | Diagnostic Imaging Report ---
INDICATION: Chest pain. COMPARISON: None. FINDINGS: Single view of the chest demonstrates cardiac enlargement without overt pulmonary edema. There is no focal infiltrate, effusion or pneumothorax. Osseous structures are normal. IMPRESSION: Cardiac enlargement without overt pulmonary edema or infiltrate. Dictated by: Dictated on workstation # [id number]
[2019-05-28] MEDS ORDERED: ASPIRIN E.C. 81 MG (ECOTRIN) TAB PO SCH (09:00)
[2019-05-28] MEDS ORDERED: APIXABAN 2.5 MG (ELIQUIS) TABLET PO SCH (09:00)
--- NOTE | 2019-05-28 10:18 | Consultation-Cardiology ---
HPI-Cardiology Cardiology Consultation: Date of Consultation 05/28/19 Time Seen by a Provider: 09:30 Date of Admission Attending Physician [place] MD Admitting Physician No,Local Physician Consulting Physician EAGLE GEORGE MD, MA, FACP, FACC, FSCAI, CCDS HPI: Chief Complaint: Reason for Card consultation: Minimal troponin elev HPI 83 yo man who has cardiac f/u with Dr Vera in [place], came to ER for several hours of palp and vague chest discomfort and malaise. Symptoms had resolved by time of arrival. No symptoms currently. Denies cp or syncope. Has h/o intermittent palp, diagnosed as PAF for which he has had elec CV on one occasion. Denies leg swelling Review of Systems-Cardiology Review of Systems Constitutional: As described under HPI Eyes: No vision change Ears/Nose/Throat: No ear discharge, No nasal drainage, No recent hearing loss Respiratory: As described under HPI Cardiovascular: As described under HPI Gastrointestinal: No diarrhea, No nausea, No vomiting Genitourinary: No dysuria, No hematuria Musculoskeletal: back pain (chronic), joint pain (chronic) Skin: No rash, No ulcerations Psychiatric/Neurological: No seizure, No focal weakness, No syncope Hematologic: No bleeding abnormalities All Other Systems Reviewed Negative Unless Noted: Yes KKT-Dgnewf-Thsmhc Hx Patient Social History Alcohol Use: Denies Use Recreational Drug Use: No Smoking Status: Former Smoker 2nd Hand Smoke Exposure: No Recent Foreign Travel: No Recent Infectious Disease Expo: No Immunizations Up To Date Tetanus Booster (TDap): Unknown Date of Pneumonia Vaccine: Nov 17, 2010 Date of Influenza Vaccine: Nov 18, 2018 Past Medical History PMH As described under Assessment. Family Medical History Family History: Cardiovascular disease 19 MOTHER Diabetes mellitus 19 MOTHER FH: prostate cancer G8 BROTHER Myocardial infarction 19 FATHER Allergies and Home Medications Allergies Coded Allergies: vancomycin (Verified Allergy, Severe, 05/28/19) Pt states his face got really red and he went into ER for reaction. gemfibrozil (Verified Allergy, Unknown, 05/27/19) valdecoxib (Verified Allergy, Unknown, 05/27/19) Home Medications Acetaminophen 500 Mg Tablet, 1,000 MG PO HS, (Reported) Allopurinol 300 Mg Tablet, 300 MG PO DAILY, (Reported) Apixaban 2.5 Mg Tablet, 2.5 MG PO BID, (Reported) Atorvastatin Calcium 40 Mg Tablet, 40 MG PO HS, (Reported) Carboxymethylcellulose Sodium 15 Ml Drops, 1 DROP OU BID, (Reported) Carvedilol 6.25 Mg Tablet, 6.25 MG PO BID, (Reported) Cholecalciferol (Vitamin D3) 1,000 Unit Capsule, 1,000 UNIT PO DAILY, (Reported) Diclofenac Sodium 100 Gm Gel..gram., 4 GM TOP QID PRN for HIP PAIN, (Reported) Diphenhydramine HCl 25 Mg Capsule, 25 MG PO HS PRN for ALLERGIES, (Reported) Docusate Sodium 100 Mg Capsule, 100 MG PO BID PRN for CONSTIPATION-1ST LINE Prescribed by: SHAWNA ADEN on 12/02/182120 Fish Oil/Borage/Flax/Om3,6,9#1 1,200 Mg Capsule, 1,200 MG PO DAILY, (Reported) Fluticasone Propionate 9.9 Ml [place].susp, 1 SPRAY NS HS PRN for ALLERGIES, (Reported) Fluticasone/Salmeterol 1 Each Blst.w.dev, 1 PUFF IH BID, (Reported) Furosemide 20 Mg Tablet, 20 MG PO HS, (Reported) Iron Polysaccharide Complex 150 Mg Capsule, 150 MG PO BID WITH MEALS Prescribed by: SHAWNA ADEN on 12/02/182120 Methotrexate Sodium 2.5 Mg Tablet, 7.5 MG PO WEEK, (Reported) TAKES 3 (2.5MG) TABLETS Omeprazole 40 Mg Capsule.dr, 40 MG PO DAILY, (Reported) Oxycodone HCl 5 Mg Tablet, 5 MG PO Q6H PRN for PAIN-SEVERE Prescribed by: SHAWNA ADEN on 12/02/182120 Pedi Mv No.79/Ferrous Fumarate 18 Mg Tab.chew, 18 MG PO DAILY, (Reported) Potassium Chloride 10 Meq Tablet.er, 10 MEQ PO DAILY@0700 Prescribed by: SHAWNA ADEN on 12/02/182120 Prednisone 5 Mg Tablet, 2.5 MG PO Q48H, (Reported) TAKES 1/2 (5MG) TABLET Tamsulosin HCl 0.4 Mg Cap, 0.4 MG PO HS, (Reported) Tramadol HCl 50 Mg Tablet, 50 MG PO Q6H PRN for PAIN-MILD Prescribed by: SHAWNA ADEN on 12/02/182120 Vit C/E/Zn/Coppr/Lutein/Zeaxan 1 Each Capsule, 1 CAP PO DAILY, (Reported) Vitamin B Complex 1 Each Capsule, 1 CAP PO DAILY, (Reported) Zinc Amino Acid Chelate 50 Mg Tablet, 50 MG PO DAILY, (Reported) [Jessy's Leg Cramps] , 1 TAB SL HS PRN for CRAMPS, (Reported) Patient Home Medication List Home Medication List Reviewed: Yes Physical Exam-Cardiology Physical Exam Vital Signs/I&O 05/27/19 05/27/19 05/27/19 05/27/19 22:41 22:42 22:42 22:42 Temp 36.3 36.3 36.6 Pulse 61 58 58 Resp 20 18 18 B/P (MAP) 163/84 (113) 167/84 167/84 (111) Pulse Ox 96 96 96 96 O2 Delivery Nasal Cannula Room Air Room Air Room Air O2 Flow Rate 1.00 05/27/19 05/27/19 05/27/19 05/27/19 22:43 22:45 23:00 23:15 Pulse 63 59 54 59 B/P (MAP) 157/81 (106) 160/74 (102) 158/78 (104) Pulse Ox 97 96 94 O2 Delivery Room Air Room Air Room Air 05/27/19 05/27/19 05/28/19 05/28/19 23:30 23:45 00:00 00:00 Temp 36.3 Pulse 54 57 B/P (MAP) 162/74 (103) 160/77 (104) Pulse Ox 94 95 O2 Delivery Room Air Room Air Room Air 05/28/19 05/28/19 05/28/19 05/28/19 00:00 00:11 01:00 01:00 Temp 36.3 Pulse 53 61 63 61 B/P (MAP) 158/78 (104) 163/84 (110) Pulse Ox 93 95 92 O2 Delivery Room Air Room Air 05/28/19 05/28/19 05/28/19 05/28/19 02:00 03:00 04:00 04:00 Pulse 55 63 64 B/P (MAP) 157/77 (103) 143/66 (91) 168/74 (105) Pulse Ox 93 92 95 95 O2 Delivery Room Air Room Air Room Air Room Air 05/28/19 05/28/19 05/28/19/11/20 04:00 08:00 08:00 09:19 Temp 37.0 36.8 Pulse Ox 96 96 O2 Delivery Room Air Room Air 05/28/19 00:00 Intake Total 550 ml Output Total 125 ml Balance 425 ml Capillary Refill : Less Than 3 Seconds Constitutional: AAO x 3, well-developed, well-nourished HEENT: EOMI, hearing is well preserved; No xanthelasmas are seen Neck: carotid pulses are 2 + bilaterally, with good upstrokes Respiratory: No accessory muscle use; other (good bilat air entry) Cardiovascular: regular rate-rhythm, S1 and S2, systolic murmur (soft PINKY at card base) Gastrointestinal: No tender; soft; No guarding, No rebound; audible bowel sounds Extremities: No clubbing, No cyanosis, No significant edema Neurologic/Psychiatric: oriented x 3, other (moves all limbs equally) Skin: No rash on exposed areas, No ulcerations on exposed areas Data Review Labs Laboratory Tests 05/27/19 20:32: White Blood Count 11.1H, Red Blood Count 3.83L, Hemoglobin 13.1L, Hematocrit 39L , Mean Corpuscular Volume 101H, Mean Corpuscular Hemoglobin 34, Mean Corpuscular Hemoglobin Concent 34, Red Cell Distribution Width 15.7H, Platelet Count 174, Mean Platelet Volume 10.0, Neutrophils (%) (Auto) 60, Lymphocytes (%) (Auto) 30, Monocytes (%) (Auto) 9, Eosinophils (%) (Auto) 1, Basophils (%) (Auto) 0, Neutrophils # (Auto) 6.7, Lymphocytes # (Auto) 3.3, Monocytes # (Auto) 1.0, Eosinophils # (Auto) 0.1, Basophils # (Auto) 0.0, Prothrombin Time 14.9H, INR Comment 1.1, Activated Partial Thromboplast Time 28, Sodium Level 139, Potassium Level 4.1, Chloride Level 105, Carbon Dioxide Level 21, Anion Gap 13, Blood Urea Nitrogen 28H, Creatinine 1.52H, Estimat Glomerular Filtration Rate 44, BUN/Creatinine Ratio 18, Glucose Level 123H, Calcium Level 9.4, Corrected Calcium 9.4, Magnesium Level 1.8, Total Bilirubin 0.6, Aspartate Amino Transf (AST/SGOT) 26, Alanine Aminotransferase (ALT/SGPT) 28, Alkaline Phosphatase 80, Myoglobin 126.4H, Troponin I 0.048H, Total Protein 6.9, Albumin 4.0 05/27/19 21:23: Urine Color YELLOW, Urine Clarity CLEAR, Urine pH 6.0, Urine Specific [place] <=1.005, Urine Protein NEGATIVE, Urine Glucose (UA) NEGATIVE, Urine Ketones NEGATIVE, Urine Nitrite NEGATIVE, Urine Bilirubin NEGATIVE, Urine Urobilinogen 0.2, Urine Leukocyte Esterase NEGATIVE, Urine RBC (Auto) NEGATIVE, Urine RBC NONE, Urine WBC NONE, Urine Crystals NONE, Urine Bacteria TRACE, Urine Casts NONE, Urine Mucus NEGATIVE, Urine Culture Indicated NO 05/28/19 02:37: White Blood Count 9.8, Red Blood Count 3.62L, Hemoglobin 12.2L, Hematocrit 37L, Mean Corpuscular Volume 101H, Mean Corpuscular Hemoglobin 34, Mean Corpuscular Hemoglobin Concent 33, Red Cell Distribution Width 15.6H, Platelet Count 156, Mean Platelet Volume 10.0, Neutrophils (%) (Auto) 57, Lymphocytes (%) (Auto) 32, Monocytes (%) (Auto) 9, Eosinophils (%) (Auto) 2, Basophils (%) (Auto) 0, Neutrophils # (Auto) 5.6, Lymphocytes # (Auto) 3.2, Monocytes # (Auto) 0.9, Eosinophils # (Auto) 0.2, Basophils # (Auto) 0.0, Sodium Level 140, Potassium Level 3.9, Chloride Level 106, Carbon Dioxide Level 22, Anion Gap 12, Blood Urea Nitrogen 28H, Creatinine 1.37H, Estimat Glomerular Filtration Rate 50, BUN/Creatinine Ratio 20, Glucose Level 118H, Calcium Level 9.0, Troponin I 0.042 H, Triglycerides Level 144, Cholesterol Level 102, LDL Cholesterol Direct 46, VLDL Cholesterol 29, HDL Cholesterol 34L 05/28/19 08:31: Troponin I 0.053H Laboratory Tests 05/27/19 20:32 05/28/19 02:37 A/P-Cardiology Assessment/Admission Diagnosis PAF Minimal troponin elevation (flat around 0.05 ng/ml) likely due to PAF with RVR yesterday (type-2 NE) 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
--- NOTE | 2019-05-28 10:28 | Short Stay Summary-Hospitalist ---
History of Present Illness HPI/Chief Complaint Pt is an 83yoCM with a PMH of a-fib, CAD, HTN, HLD, CKD who prsented to the ER due to not feeling well. The ER note states that he had chest pain but he adamantly denied this to me. He states he never had chest pain but he just didn't feel "right." He was unable to qualify his symptoms further than that. He did have left shoulder pain but that has been chronic. He had palpitations so checked his pulse and noticed it was irregular prompting him to seek care in the ER. He has known a-fib and has had to be cardioverted in the past. This morning he states he feels well and has no pain or palpitations. Source: patient Exam Limitations: no limitations Date Seen 05/28/19 Time Seen by a Provider: 10:24 Attending Physician [place] MD PCP No,Local Physician Referring Physician Date of Admission May 27, 2019 at 22:00 Home Medications & Allergies Home Medications Reviewed patient Home Medication Reconciliation performed by pharmacy medication reconciliations mine technician and/or nursing. Patients Allergies have been reviewed. Allergies Allergies Coded Allergies vancomycin (Verified Allergy, Severe, 05/28/19) Pt states his face got really red and he went into ER for reaction. gemfibrozil (Verified Allergy, Unknown, 05/27/19) valdecoxib (Verified Allergy, Unknown, 05/27/19) Past Pinhrgw-Wombtv-Rleqlu Hx Past Med/Social Hx: Reviewed Nursing Past Med/Soc Hx Patient Social History Marrital Status: Employed/Student: retired Alcohol Use: Denies Use Recreational Drug Use: No Smoking Status: Former Smoker Former Smoker, Quit: Nov 22, 1972 2nd Hand Smoke Exposure: No Recent Foreign Travel: No Contact w/other who traveled: No Recent Hopitalizations: No Recent Infectious Disease Expo: No Immunizations Up To Date Tetanus Booster (TDap): Unknown Date of Pneumonia Vaccine: Nov 17, 2010 Date of Influenza Vaccine: Nov 18, 2018 Seasonal Allergies Seasonal Allergies: Yes Past Medical History Surgeries: Orthopedic Currently Using CPAP: Yes Currently Using BIPAP: No Cardiac: Atrial Fibrillation, Coronary Artery Disease, Heart Murmur, High Cholesterol, Hypertension, Valvular Heart Disease Genitourinary: Benign Prostatic Hyperpl, Renal Failure Gastrointestinal: Gastroesophageal Reflux Musculoskeletal: Arthritis, Gout Hearing Impairment: Bilateral Hearing Aide Cancer: Prostate, Lymphoma What Type of Treatment Did You: Radiation History of Blood Disorders: Yes Adverse Reaction to Blood Mack: Yes (THINKS HE HAS HAD A RXN, BUT UNSURE WHAT) Family History Reviewed Nursing Family Hx Cardiovascular disease 19 MOTHER Diabetes mellitus 19 MOTHER FH: prostate cancer G8 BROTHER Myocardial infarction 19 FATHER Review of Systems Constitutional: see HPI; No chills, No fever EENTM: hearing loss (chronic- wears hearing aids) Respiratory: No cough, No dyspnea on exertion, No short of breath Cardiovascular: No chest pain, No edema; palpitations; No syncope Gastrointestinal: no symptoms reported Genitourinary: no symptoms reported Musculoskeletal: no symptoms reported Skin: no symptoms reported Psychiatric/Neurological: No Symptoms Reported Physical Exam Physical Exam Vital Signs Vital Signs - First Documented 05/27/19 05/27/19 20:25 22:41 Temp 36.3 Pulse 61 Resp 20 B/P (MAP) 171/85 (113) Pulse Ox 95 O2 Delivery Room Air O2 Flow Rate 1.00 Capillary Refill : Less Than 3 Seconds Height, Weight, BMI Height: 5'6.00" Weight: 173lbs. 6.4oz. [id number]; 28.37 BMI Method: General Appearance: No Apparent Distress, WD/WN HEENT: PERRL/EOMI, TMs Normal (bilateral hearing aids in place), Moist Mucous Membranes; No Scleral Icterus (L), No Scleral Icterus (R) Neck: Normal Inspection, Supple Respiratory: Chest Non Tender, Lungs Clear, No Accessory Muscle Use, No Respiratory Distress Cardiovascular: No Edema, Normal Peripheral Pulses, Irregularly Irregular Gastrointestinal: Normal Bowel Sounds, Non Tender, Soft Extremity: Normal Capillary Refill, Non Tender, No Calf Tenderness, Swelling (trace, bilateral) Neurologic/Psychiatric: Alert, Oriented x3, Normal Mood/Affect Skin: Normal Color, Warm/Dry Results Results/Procedures Labs Laboratory Tests 05/27/19 20:32 05/28/19 02:37 Patient resulted labs reviewed. Imaging: Reviewed Imaging Report Imaging Date of Exam:05/27/19 CHEST 1 VIEW, AP/PA ONLY INDICATION: Chest pain. COMPARISON: None. FINDINGS: Single view of the chest demonstrates cardiac enlargement without overt pulmonary edema. There is no focal infiltrate, effusion or pneumothorax. Osseous structures are normal. IMPRESSION: Cardiac enlargement without overt pulmonary edema or infiltrate. Short Stay Diagnosis Discharge Diagnosis-Short Stay Admission Diagnosis Elevated Troponin Final Discharge Diagnosis Elevated Troponin Conclusion Plan Elevated troponin CAD PAF Likely due to PAF and CKD troponin stable Cardiology consulted, appreciate recs Needs to follow up with Dr Vera as an outpatient Continue anticoagulation Echo CKD stage 3 Slight elevation yesterday Improved today HTN Resume home meds Dispo; DC home today following echo Clinical Quality Measures DVT/VTE Risk/Contraindication: Risk Factor Score Per Nursin RFS Level Per Nursing on Admit: 4+=Very High ELLE MARCUS MD May 28, 2019 10:28
--- NOTE | 2019-05-28 10:37 | Discharge Inst-Simple/Standard ---
Discharge Inst-Standard Patient Instructions/Follow Up Plan of Care/Instructions/FU: Please continue to take your medications as written. Please follow up with your PCP in the next week and with Dr Vera as scheduled. Activity as Tolerated: Yes Discharge Diet: Cardiac Diet Return to The Hospital For: Chest pain, palpitations, shortness of breath, leg swelling, fever, if you feel you are getting worse. ELLE MARUCS MD May 28, 2019 10:37
--- NOTE | 2019-05-28 11:19 | NUR ---
Pt is Yazidism. Chaplain velazquez w/ pt and family.
--- OUTSIDE RECORDS SUMMARY | 2019-05-29 23:06 | XMS REPORT | Continuity of Care Document ---
Author Organization Unknown Address Unknown Phone Unavailable Allergies Active Description Code Type Severity Reaction Onset Reported/Identified Relationship to Patient Clinical Status Yes No Allergy Information Available [id number] Drug Allergy Unknown N/A 019 Yes gemfibrozil [id number] Drug Aller gy Unknown N/A 05/27/2019 Yes valdecoxib [id number] Drug Allerg y Unknown N/A 05/27/2019 Yes vancomycin [id number] Drug Allerg y Severe N/A 05/28/2019 Medications There is no data. Problems Date Dx Coded Attending Type Code Diagnosis Diagnosed By 12/03/2018 SHAWNA ADEN DO Ot D62 ACUTE POSTHEMORRHAGIC ANEMIA 12/03/2018 ANASTASIIA ADEN DOI Ot E78.2 MIXED HYPERLIPIDEMIA 12/03/2018 ANASTASIIA ADEN DOI Ot G47.33 OBSTRUCTIVE SLEEP APNEA (ADULT) (PEDIATR 12/03/2018 ANASTASIIA ADEN DOI Ot I12.9 HYPERTENSIVE CHRONIC KIDNEY DISEASE W ST 12/03/2018 ANASTASIIA ADEN DOI Ot I25.10 ATHSCL HEART DISEASE OF [place] CORONARY 12/03/2018 MARKIE DALLAS SHAWNA Ot I35.0 NONRHEUMATIC AORTIC (VALVE) STENOSIS 12/03/2018 ANASTASIIA ADEN DOI Ot I48.0 PAROXYSMAL ATRIAL FIBRILLATION 12/03/2018 ANASTASIIA ADEN DOI Ot K21.9 GASTRO-ESOPHAGEAL REFLUX DISEASE WITHOUT 12/03/2018 MARKIE DALLAS SHAWNA Ot M10.9 GOUT, UNSPECIFIED 12/03/2018 MARKIE DALLAS SHAWNA Ot M19.90 UNSPECIFIED OSTEOARTHRITIS, UNSPECIFIED 12/03/2018 MARKIE DALLAS SHAWNA Ot N18.9 CHRONIC KIDNEY DISEASE, UNSPECIFIED 12/03/2018 MARKIE DALLAS SHAWNA Ot N40.1 BENIGN PROSTATIC HYPERPLASIA WITH LOWER 12/03/2018 MARKIE DALLAS SHAWNA Ot R33.9 RETENTION OF URINE, UNSPECIFIED 12/03/2018 SHAWNA ADEN DO Ot Z47.1 AFTERCARE FOLLOWING JOINT REPLACEMENT JONES 12/03/2018 SHAWNA ADEN DO Ot Z85.46 PERSONAL HISTORY OF MALIGNANT NEOPLASM O 12/03/2018 SHAWNA ADEN DO Ot 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 Results Test Result Range Complete blood count (CBC) with automate d white blood cell (WBC) differential - 11/23/18 06:40 Blood leukocytes automated count (number/volume) 11.6 10*3/uL 4.3-11.0 Blood erythrocytes automated count (number/volume) 2.62 10*6/uL 4.35-5.85 Venous blood hemoglobin measurement (mass/volume) 8.7 g/dL 13.3-17.7 Blood hematocrit (volume fraction) 27 % 40-54 Automated erythrocyte mean corpuscular volume 103 [foz_us] 80-99 Automated erythrocyte mean corpuscular h emoglobin (mass per erythrocyte) 33 pg 25-34 Automated erythrocyte mean corpuscular h emoglobin concentration measurement (mass/volume) 32 g/dL 32-36 Automated erythrocyte distribution width ratio 16. 0 % 10.0- 14.5 Automated blood platelet count (count/volume) 197 10*3/uL 130-400 Automated blood platelet mean volume measurement 9.8 [foz_us] 7.4-10.4 Automated blood neutrophils/100 leukocytes 62 % 42-75 Automated blood lymphocytes/100 leukocytes 24 % 12-44 Blood monocytes/100 leukocytes 13 % 0-12 Automated blood eosinophils/100 leukocytes 1 % 0-10 Automated blood basophils/100 leukocytes 0 % 0-10 Blood neutrophils automated count (number/volume) 7.2 10*3 1.8-7.8 Blood lymphocytes automated count (number/volume) 2.8 10*3 1.0-4.0 Blood monocytes automated count (number/volume) 1. 5 10*3 0.0-1.0 Automated eosinophil count 0.1 10*3/uL 0 .0-0.3 Automated blood basophil count (count/volume) 0.0 10*3/uL 0.0-0.1 Comprehensive metabolic panel - 11/23/18 06:40 Serum or plasma sodium measurement (moles/volume) 137 mmol/L 135-145 Serum or plasma potassium measurement (moles/volume) 3.8 mmol/L 3.6-5.0 Serum or plasma chloride measurement (moles/volume) 102 mmol/L 98-107 Carbon dioxide 26 mmol/L 21-32 Serum or plasma anion gap determination (moles/volume) 9 mmol/L 5-14 Serum or plasma urea nitrogen measurement (mass/volume ) 26 mg/dL 7-18 Serum or plasma creatinine measurement (mass/volume) 1.46 mg/dL 0.60-1.30 Serum or plasma urea nitrogen/creatinine mass ratio 18 NRG Serum or plasma creatinine measurement w ith calculation of estimated glomerular filtration rate 46 NRG Serum or plasma glucose measurement (mass/volume) 102 mg/dL 70-105 Serum or plasma calcium measurement (mass/volume) 8.8 mg/dL 8.5-10.1 Serum or plasma total bilirubin measurement (mass/volu me) 0.4 mg/dL 0.1-1.0 Serum or plasma alkaline phosphatase levar surement (enzymatic activity/volume) 75 U/L 40-136 Serum or plasma aspartate aminotransfera se measurement (enzymatic activity/volume) 16 U/L 5-34 Serum or plasma alanine aminotransferase measurement (enzymatic activity/volume) 9 U/L 0-55 Serum or plasma protein measurement (mass/volume) 6.0 g/dL 6.4-8.2 Serum or plasma albumin measurement (mass/volume) 3.2 g/dL 3.2-4.5 CALCIUM CORRECTED 9.4 mg/dL 8.5-10.1 Complete blood count (CBC) with automate d white blood cell (WBC) differential - 11/25/18 05:35 Blood leukocytes automated count (number/volume) 10.1 10*3/uL 4.3-11.0 Blood erythrocytes automated count (number/volume) 2.75 10*6/uL 4.35-5.85 Venous blood hemoglobin measurement (mass/volume) 9.2 g/dL 13.3-17.7 Blood hematocrit (volume fraction) 28 % 40-54 Automated erythrocyte mean corpuscular volume 103 [foz_us] 80-99 Automated erythrocyte mean corpuscular h emoglobin (mass per erythrocyte) 34 pg 25-34 Automated erythrocyte mean corpuscular h emoglobin concentration measurement (mass/volume) 33 g/dL 32-36 Automated erythrocyte distribution width ratio 15. 6 % 10.0- 14.5 Automated blood platelet count (count/volume) 215 10*3/uL 130-400 Automated blood platelet mean volume measurement 10.6 [foz_us] 7.4-10.4 Automated blood neutrophils/100 leukocytes 57 % 42-75 Automated blood lymphocytes/100 leukocytes 27 % 12-44 Blood monocytes/100 leukocytes 13 % 0-12 Automated blood eosinophils/100 leukocytes 3 % 0-10 Automated blood basophils/100 leukocytes 0 % 0-10 Blood neutrophils automated count (number/volume) 5.8 10*3 1.8-7.8 Blood lymphocytes automated count (number/volume) 2.7 10*3 1.0-4.0 Blood monocytes automated count (number/volume) 1. 3 10*3 0.0-1.0 Automated eosinophil count 0.3 10*3/uL 0 .0-0.3 Automated blood basophil count (count/volume) 0.0 10*3/uL 0.0-0.1 Comprehensive metabolic panel - 11/25/18 05:35 Serum or plasma sodium measurement (moles/volume) 136 mmol/L 135-145 Serum or plasma potassium measurement (moles/volume) 4.1 mmol/L 3.6-5.0 Serum or plasma chloride measurement (moles/volume) 100 mmol/L 98-107 Carbon dioxide 24 mmol/L 21-32 Serum or plasma anion gap determination (moles/volume) 12 mmol/L 5-14 Serum or plasma urea nitrogen measurement (mass/volume ) 25 mg/dL 7-18 Serum or plasma creatinine measurement (mass/volume) 1.38 mg/dL 0.60-1.30 Serum or plasma urea nitrogen/creatinine mass ratio 18 NRG Serum or plasma creatinine measurement w ith calculation of estimated glomerular filtration rate 49 NRG Serum or plasma glucose measurement (mass/volume) 109 mg/dL 70-105 Serum or plasma calcium measurement (mass/volume) 9.2 mg/dL 8.5-10.1 Serum or plasma total bilirubin measurement (mass/volu me) 0.9 mg/dL 0.1-1.0 Serum or plasma alkaline phosphatase levar surement (enzymatic activity/volume) 82 U/L 40-136 Serum or plasma aspartate aminotransfera se measurement (enzymatic activity/volume) 20 U/L 5-34 Serum or plasma alanine aminotransferase measurement (enzymatic activity/volume) 11 U/L 0-55 Serum or plasma protein measurement (mass/volume) 6.2 g/dL 6.4-8.2 Serum or plasma albumin measurement (mass/volume) 3.2 g/dL 3.2-4.5 CALCIUM CORRECTED 9.8 mg/dL 8.5-10.1 Complete blood count (CBC) with automate d white blood cell (WBC) differential - 12/02/18 04:34 Blood leukocytes automated count (number/volume) 9.6 10*3/uL 4.3-11.0 Blood erythrocytes automated count (number/volume) 2.74 10*6/uL 4.35-5.85 Venous blood hemoglobin measurement (mass/volume) 8.9 g/dL 13.3-17.7 Blood hematocrit (volume fraction) 28 % 40-54 Automated erythrocyte mean corpuscular volume 102 [foz_us] 80-99 Automated erythrocyte mean corpuscular h emoglobin (mass per erythrocyte) 32 pg 25-34 Automated erythrocyte mean corpuscular h emoglobin concentration measurement (mass/volume) 32 g/dL 32-36 Automated erythrocyte distribution width ratio 15. 6 % 10.0- 14.5 Automated blood platelet count (count/volume) 280 10*3/uL 130-400 Automated blood platelet mean volume measurement 10.0 [foz_us] 7.4-10.4 Automated blood neutrophils/100 leukocytes 56 % 42-75 Automated blood lymphocytes/100 leukocytes 24 % 12-44 Blood monocytes/100 leukocytes 12 % 0-12 Automated blood eosinophils/100 leukocytes 8 % 0-10 Automated blood basophils/100 leukocytes 0 % 0-10 Blood neutrophils automated count (number/volume) 5.4 10*3 1.8-7.8 Blood lymphocytes automated count (number/volume) 2.3 10*3 1.0-4.0 Blood monocytes automated count (number/volume) 1. 1 10*3 0.0-1.0 Automated eosinophil count 0.7 10*3/uL 0 .0-0.3 Automated blood basophil count (count/volume) 0.0 10*3/uL 0.0-0.1 Comprehensive metabolic panel - 12/02/18 04:34 Serum or plasma sodium measurement (moles/volume) 140 mmol/L 135-145 Serum or plasma potassium measurement (moles/volume) 3.2 mmol/L 3.6-5.0 Serum or plasma chloride measurement (moles/volume) 106 mmol/L 98-107 Carbon dioxide 20 mmol/L 21-32 Serum or plasma anion gap determination (moles/volume) 14 mmol/L 5-14 Serum or plasma urea nitrogen measurement (mass/volume ) 24 mg/dL 7-18 Serum or plasma creatinine measurement (mass/volume) 1.33 mg/dL 0.60-1.30 Serum or plasma urea nitrogen/creatinine mass ratio 18 NRG Serum or plasma creatinine measurement w ith calculation of estimated glomerular filtration rate 51 NRG Serum or plasma glucose measurement (mass/volume) 107 mg/dL 70-105 Serum or plasma calcium measurement (mass/volume) 8.8 mg/dL 8.5-10.1 Serum or plasma total bilirubin measurement (mass/volu me) 0.7 mg/dL 0.1-1.0 Serum or plasma alkaline phosphatase levar surement (enzymatic activity/volume) 84 U/L 40-136 Serum or plasma aspartate aminotransfera se measurement (enzymatic activity/volume) 20 U/L 5-34 Serum or plasma alanine aminotransferase measurement (enzymatic activity/volume) 16 U/L 0-55 Serum or plasma protein measurement (mass/volume) 5.5 g/dL 6.4-8.2 Serum or plasma albumin measurement (mass/volume) 3.0 g/dL 3.2-4.5 CALCIUM CORRECTED 9.6 mg/dL 8.5-10.1 Complete blood count (CBC) with automate d white blood cell (WBC) differential - 05/27/19 20:32 Blood leukocytes automated count (number/volume) 11.1 10*3/uL 4.3-11.0 Blood erythrocytes automated count (number/volume) 3.83 10*6/uL 4.35-5.85 Venous blood hemoglobin measurement (mass/volume) 13.1 g/dL 13.3-17.7 Blood hematocrit (volume fraction) 39 % 40-54 Automated erythrocyte mean corpuscular volume 101 [foz_us] 80-99 Automated erythrocyte mean corpuscular h emoglobin (mass per erythrocyte) 34 pg 25-34 Automated erythrocyte mean corpuscular h emoglobin concentration measurement (mass/volume) 34 g/dL 32-36 Automated erythrocyte distribution width ratio 15. 7 % 10.0- 14.5 Automated blood platelet count (count/volume) 174 10*3/uL 130-400 Automated blood platelet mean volume measurement 10.0 [foz_us] 7.4-10.4 Automated blood neutrophils/100 leukocytes 60 % 42-75 Automated blood lymphocytes/100 leukocytes 30 % 12-44 Blood monocytes/100 leukocytes 9 % 0-12 Automated blood eosinophils/100 leukocytes 1 % 0-10 Automated blood basophils/100 leukocytes 0 % 0-10 Blood neutrophils automated count (number/volume) 6.7 10*3 1.8-7.8 Blood lymphocytes automated count (number/volume) 3.3 10*3 1.0-4.0 Blood monocytes automated count (number/volume) 1. 0 10*3 0.0-1.0 Automated eosinophil count 0.1 10*3/uL 0 .0-0.3 Automated blood basophil count (count/volume) 0.0 10*3/uL 0.0-0.1 PT panel in platelet poor plasma by coag ulation assay - 05/27/19 20:32 Prothrombin time (PT) in platelet poor plasma by coagu lation assay 14.9 s 12.2-14.7 INR in platelet poor plasma or blood by coagulation as say 1.1 0.8-1.4 Activated partial thromboplastin time (a PTT) in platelet poor plasma bycoagulation assay - 05/27/19 20:32 Activated partial thromboplastin time (a PTT) in platelet poor plasma bycoagulation assay 28 s 24-35 Comprehensive metabolic panel - 05/27/19 20:32 Serum or plasma sodium measurement (moles/volume) 139 mmol/L 135-145 Serum or plasma potassium measurement (moles/volume) 4.1 mmol/L 3.6-5.0 Serum or plasma chloride measurement (moles/volume) 105 mmol/L 98-107 Carbon dioxide 21 mmol/L 21-32 Serum or plasma anion gap determination (moles/volume) 13 mmol/L 5-14 Serum or plasma urea nitrogen measurement (mass/volume ) 28 mg/dL 7-18 Serum or plasma creatinine measurement (mass/volume) 1.52 mg/dL 0.60-1.30 Serum or plasma urea nitrogen/creatinine mass ratio 18 NRG Serum or plasma creatinine measurement w ith calculation of estimated glomerular filtration rate 44 NRG Serum or plasma glucose measurement (mass/volume) 123 mg/dL 70-105 Serum or plasma calcium measurement (mass/volume) 9.4 mg/dL 8.5-10.1 Serum or plasma total bilirubin measurement (mass/volu me) 0.6 mg/dL 0.1-1.0 Serum or plasma alkaline phosphatase levar surement (enzymatic activity/volume) 80 U/L 40-136 Serum or plasma aspartate aminotransfera se measurement (enzymatic activity/volume) 26 U/L 5-34 Serum or plasma alanine aminotransferase measurement (enzymatic activity/volume) 28 U/L 0-55 Serum or plasma protein measurement (mass/volume) 6.9 g/dL 6.4-8.2 Serum or plasma albumin measurement (mass/volume) 4.0 g/dL 3.2-4.5 CALCIUM CORRECTED 9.4 mg/dL 8.5-10.1 Magnesium - 05/27/19 20:32 Magnesium 1.8 mg/dL 1.6-2.4 Serum or plasma troponin i.cardiac measu rement (mass/volume) - 05/27/19 20:32 Serum or plasma troponin i.cardiac measurement (mass/v olume) 0.048 ng/mL <0.028 Myoglobin, serum - 05/27/19 20:32 Myoglobin, serum 126.4 ng/mL 10.0-92.0 Complete urinalysis with reflex to cultu re - 05/27/19 21:23 Urine color determination YELLOW NRG Urine clarity determination CLEAR NR G Urine pH measurement by test strip 6.0 5-9 Specific gravity of urine by test strip <= 1.016-1.022 Urine protein assay by test strip, semi-quantitative NEGATIVE NEGATIVE Urine glucose detection by automated test strip NE GATIVE NEGATIVE Erythrocytes detection in urine sediment by light micr oscopy NEGATIVE NEGATIVE Urine ketones detection by automated test strip NE GATIVE NEGATIVE Urine nitrite detection by test strip NEGATIVE NEGATIVE Urine total bilirubin detection by test strip NEGA TIVE NEGATIVE Urine urobilinogen measurement by automated test strip (mass/volume) 0.2 mg/dL < = 1.0 Urine leukocyte esterase detection by dipstick NEG ATIVE NEGATIVE Automated urine sediment erythrocyte cou nt by microscopy (number/high power field) NONE NRG Automated urine sediment leukocyte count by microscopy (number/high power field) NONE NRG Bacteria detection in urine sediment by light microsco py TRACE NRG Crystals detection in urine sediment by light microsco py NONE NRG Casts detection in urine sediment by light microscopy NONE NRG Mucus detection in urine sediment by light microscopy NEGATIVE NRG Complete urinalysis with reflex to culture NO NRG Complete blood count (CBC) with automate d white blood cell (WBC) differential - 05/28/19 02:37 Blood leukocytes automated count (number/volume) 9.8 10*3/uL 4.3-11.0 Blood erythrocytes automated count (number/volume) 3.62 10*6/uL 4.35-5.85 Venous blood hemoglobin measurement (mass/volume) 12.2 g/dL 13.3-17.7 Blood hematocrit (volume fraction) 37 % 40-54 Automated erythrocyte mean corpuscular volume 101 [foz_us] 80-99 Automated erythrocyte mean corpuscular h emoglobin (mass per erythrocyte) 34 pg 25-34 Automated erythrocyte mean corpuscular h emoglobin concentration measurement (mass/volume) 33 g/dL 32-36 Automated erythrocyte distribution width ratio 15. 6 % 10.0- 14.5 Automated blood platelet count (count/volume) 156 10*3/uL 130-400 Automated blood platelet mean volume measurement 10.0 [foz_us] 7.4-10.4 Automated blood neutrophils/100 leukocytes 57 % 42-75 Automated blood lymphocytes/100 leukocytes 32 % 12-44 Blood monocytes/100 leukocytes 9 % 0-12 Automated blood eosinophils/100 leukocytes 2 % 0-10 Automated blood basophils/100 leukocytes 0 % 0-10 Blood neutrophils automated count (number/volume) 5.6 10*3 1.8-7.8 Blood lymphocytes automated count (number/volume) 3.2 10*3 1.0-4.0 Blood monocytes automated count (number/volume) 0. 9 10*3 0.0-1.0 Automated eosinophil count 0.2 10*3/uL 0 .0-0.3 Automated blood basophil count (count/volume) 0.0 10*3/uL 0.0-0.1 Whole blood basic metabolic panel - 05/17 04/07 02:37 Serum or plasma sodium measurement (moles/volume) 140 mmol/L 135-145 Serum or plasma potassium measurement (moles/volume) 3.9 mmol/L 3.6-5.0 Serum or plasma chloride measurement (moles/volume) 106 mmol/L 98-107 Carbon dioxide 22 mmol/L 21-32 Serum or plasma anion gap determination (moles/volume) 12 mmol/L 5-14 Serum or plasma urea nitrogen measurement (mass/volume ) 28 mg/dL 7-18 Serum or plasma creatinine measurement (mass/volume) 1.37 mg/dL 0.60-1.30 Serum or plasma urea nitrogen/creatinine mass ratio 20 NRG Serum or plasma creatinine measurement w ith calculation of estimated glomerular filtration rate 50 NRG Serum or plasma glucose measurement (mass/volume) 118 mg/dL 70-105 Serum or plasma calcium measurement (mass/volume) 9.0 mg/dL 8.5-10.1 Serum or plasma troponin i.cardiac measu rement (mass/volume) - 05/28/19 02:37 Serum or plasma troponin i.cardiac measurement (mass/v olume) 0.042 ng/mL <0.028 Lipid 1996 panel - 05/28/19 02:37 Serum or plasma triglyceride measurement (mass/volume) 144 mg/dL <150 Serum or plasma cholesterol measurement (mass/volume) 102 mg/dL < 200 Serum or plasma cholesterol in HDL measurement (mass/v olume) 34 mg/dL 40-60 Cholesterol in LDL [mass/volume] in serum or plasma by direct assay 46 mg/dL 1-129 Serum or plasma cholesterol in VLDL measurement (mass/ volume) 29 mg/dL 5-40 Serum or plasma troponin i.cardiac measu rement (mass/volume) - 05/28/19 08:31 Serum or plasma troponin i.cardiac measurement (mass/v olume) 0.053 ng/mL <0.028 Encounters ACCT No. Visit Date/Time Discharge Status Pt. Type Provider Facility Loc./Unit Complaint [id number] 05/27/2019 22:00:00 020 14:50:00 DIS Inpatient CHRISTOPHER VELA, JEANNIE Kumar [facility] ICU CP, ELEVATED TR OP [id number] 11/22/2018 12:09:00 019 09:54:00 DIS Inpatient SHAWNA ADEN DO [facility] IRF R ANNIKA
--- OUTSIDE RECORDS SUMMARY | 2019-05-30 00:06 | XMS REPORT | Continuity of Care Document ---
Author Organization Unknown Address Unknown Phone Unavailable Allergies Active Description Code Type Severity Reaction Onset Reported/Identified Relationship to Patient Clinical Status Yes No Allergy Information Available [id number] Drug Allergy Unknown N/A 019 Yes gemfibrozil [id number] Drug Aller gy Unknown N/A 05/27/2019 Yes valdecoxib [id number] Drug Allerg y Unknown N/A 05/27/2019 Yes vancomycin [id number] Drug Allerg y Severe N/A 05/28/2019 Medications [...] DOI Ot I25.10 ATHSCL HEART DISEASE OF [place] CORONARY 12/03/2018 MARKIE DALLAS SHAWNA Ot I35.0 [...] Status Pt. Type Provider Facility Loc./Unit Complaint [id number] 05/27/2019 22:00:00 020 14:50:00 DIS Inpatient CHRISTOPHER VELA, JEANNIE Kumar [facility] ICU CP, ELEVATED TR OP [id number] 11/22/2018 12:09:00 019 09:54:00 DIS Inpatient SHAWNA ADEN DO [facility] IRF R ANNIKA
== END 2019-05-28 14:50 | disposition home or self-care (01) ==
LOC: EDUNIT# 20:17 → ER 20:18 → ICU 22:00
PROVIDERS: ADMIT Internal Medicine; ATTEND Internal Medicine
DX: R79.89 Other specified abnormal findings of blood chemistry (principal); I45.10 Unspecified right bundle-branch block; I44.4 Left anterior fascicular block; I48.0 Paroxysmal atrial fibrillation; I25.10 Atherosclerotic heart disease of native coronary artery without angina pectoris; I11.9 Hypertensive heart disease without heart failure; E78.00 Pure hypercholesterolemia, unspecified; J44.9 Chronic obstructive pulmonary disease, unspecified; K21.9 Gastro-esophageal reflux disease without esophagitis; M10.9 Gout, unspecified; M19.90 Unspecified osteoarthritis, unspecified site; N18.3 Chronic kidney disease, stage 3 (moderate); Z88.8 Allergy status to other drugs, medicaments and biological substances; Z79.899 Other long term (current) drug therapy; Z79.891 Long term (current) use of opiate analgesic; Z87.891 Personal history of nicotine dependence; Z92.3 Personal history of irradiation; Z83.3 Family history of diabetes mellitus; Z80.42 Family history of malignant neoplasm of prostate
CPT/HCPCS: 36415; 71045; 80048; 80053; 80061; 81000; 83735; 83874; 84484; 85025; 85610; 85730; 93005; 93041; 93306

== ENCOUNTER 2020-05-17 12:30 | Observation (INO) | payer OTHER, MEDICARE ==
[~2020-05-17] VITALS: Ht 167.7 cm; Wt 77.7 kg
[2020-05-17] VITALS (10 sets, daily range): BP systolic 115–165; BP diastolic 68–89
[~2020-05-17 12:30] MED LIST changes: +OXC5T PO; -OXYC-471 PO; -OXYC-529 PO; +OXYC1TAB11 PO
[2020-05-17 13:16] LABS: HEMOGLOBIN 13.3 g/dL (13.3-17.7); MEAN PLATELET VOLUME 10.2 fL (9.0-12.2); WHITE BLOOD COUNT 11.1 10^3/uL (4.3-11.0)
[2020-05-17 13:23] LABS: BILIRUBIN,URINE NEGATIVE (NEGATIVE); CLARITY,URINE CLEAR; COLOR,URINE DARK YELLOW; GLUCOSE, URINE (UA) NEGATIVE (NEGATIVE); KETONES,URINE NEGATIVE (NEGATIVE); LEUKOCYTE ESTERASE ,URINE NEGATIVE (NEGATIVE); NITRITE,URINE NEGATIVE (NEGATIVE); PROTEIN,URINE NEGATIVE (NEGATIVE)
[2020-05-17] MEDS ORDERED: IOHEXOL 350 MG/ML 100 ML (OMNIPAQUE 350) VIAL IV ONE (13:30)
[2020-05-17] MEDS ORDERED: HOLD METFORMIN - RECEIVED CONTRAST 20 ML VIAL IV SCH (13:30)
[2020-05-17] MEDS ORDERED: CATHETER FLUSH 10 ML SYR IV PRN ×2 (13:30→19:15)
[2020-05-17 13:31] LABS: ALBUMIN 3.8 GM/DL (3.2-4.5); CHLORIDE 103 MMOL/L (98-107); POTASSIUM 4.3 MMOL/L (3.6-5.0); SODIUM 137 MMOL/L (135-145)
[2020-05-17 13:32] LABS: CALCIUM 9.1 MG/DL (8.5-10.1)
[2020-05-17 13:33] LABS: GLUCOSE 145 MG/DL (70-105); INR 1.2 (0.8-1.4); PROTHROMBIN TIME PATIENT 15.1 SEC (12.2-14.7)
[2020-05-17 13:34] LABS: CARBON DIOXIDE 23 MMOL/L (21-32)
[2020-05-17 13:35] LABS: BILIRUBIN,TOTAL 0.7 MG/DL (0.1-1.0)
[2020-05-17 13:37] LABS: ALKALINE PHOSPHATASE 88 U/L (40-136); CREATININE SERUM 1.31 MG/DL (0.60-1.30); GFR ESTIMATED 52
[2020-05-17 13:38] LABS: BILIRUBIN,DIRECT 0.3 MG/DL (0.0-0.3); BILIRUBIN,INDIRECT 0.4 MG/DL; BUN/CREATININE RATIO 18
[2020-05-17 13:39] LABS: BACTERIA,URINE NEGATIVE /HPF; RBC,URINE >100 /HPF
[2020-05-17 13:40] LABS: ALANINE AMINOTRANSFERASE 34 U/L (0-55)
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
[2020-05-17] MEDS ORDERED: fentaNYL INJECTION 100 MCG/2 ML AMP IVP ONE (15:15)
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
[2020-05-17] MEDS ORDERED: LACTATED RINGERS 1,000 ML IV ONE ×2 (18:51→19:15)
[2020-05-17] MEDS ORDERED: ONDANSETRON 4 MG/2 ML (SDV) Z0FRAN IV PRN (19:15)
[2020-05-17] MEDS: HYDROcodone/APAP 5 MG/325 MG (LORTAB) TAB PO PRN (19:54)
[2020-05-18] MEDS: HYDROcodone/APAP 5 MG/325 MG (LORTAB) TAB PO PRN (01:47)
[2020-05-18 04:44] VITALS: BP 111/69
[2020-05-18 05:55] LABS: BASOPHILS % (AUTO) 0 % (0-10); EOSINOPHILS # (AUTO) 0.3 10^3/uL (0.0-0.3); EOSINOPHILS % (AUTO) 3 % (0-10); HEMATOCRIT 37 % (40-54); LYMPHOCYTES # (AUTO) 2.4 10^3/uL (1.0-4.0); LYMPHOCYTES % (AUTO) 25 % (12-44); MEAN CORPUSCULAR HEMOGLOBIN 33 pg (25-34); MEAN CORPUSCULAR HGB CONC 33 g/dL (32-36); MEAN CORPUSCULAR VOLUME 99 fL (80-99); MEAN PLATELET VOLUME 10.2 fL (9.0-12.2); MONOCYTES % (AUTO) 10 % (0-12); NEUTROPHILS % (AUTO) 61 % (42-75); PLATELET COUNT 167 10^3/uL (130-400); WHITE BLOOD COUNT 9.9 10^3/uL (4.3-11.0)
[2020-05-18 06:07] LABS: POTASSIUM 3.8 MMOL/L (3.6-5.0)
[2020-05-18 06:09] LABS: CALCIUM 8.5 MG/DL (8.5-10.1)
[2020-05-18 06:13] LABS: CREATININE SERUM 1.39 MG/DL (0.60-1.30)
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
[2020-05-18 08:00] VITALS: BP 129/71
[2020-05-18] MEDS ORDERED: TMSL.4C PO (11:07)
[2020-05-18] MEDS ORDERED: VITA1CAP19 PO (11:07)
[2020-05-18] MEDS ORDERED: CHOL10007 PO (11:07)
[2020-05-18] MEDS ORDERED: OMEG-86 PO (11:07)
[2020-05-18] MEDS ORDERED: FLUT1BLS11 INH (11:07)
[2020-05-18] MEDS ORDERED: MAGN250T35 PO (11:10)
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
[2020-05-18 12:00] VITALS: BP 125/70
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
[2020-05-18 15:01] VITALS: BP 125/70
== END 2020-05-18 15:01 | disposition home or self-care (01) ==
LOC: EDUNIT# 12:30 → ER 12:32 → UNDOADMOB 16:48 → 4TH 16:48 → UNDODISOB 05-18 15:06
PROVIDERS: ADMIT Surgery; ATTEND Surgery
DX: S29.9XXA Unspecified injury of thorax, initial encounter (principal); I48.0 Paroxysmal atrial fibrillation; I12.9 Hypertensive chronic kidney disease with stage 1 through stage 4 chronic kidney disease, or unspecified chronic kidney disease; N18.9 Chronic kidney disease, unspecified; J44.9 Chronic obstructive pulmonary disease, unspecified; E78.00 Pure hypercholesterolemia, unspecified; I10 Essential (primary) hypertension; I25.10 Atherosclerotic heart disease of native coronary artery without angina pectoris; I48.91 Unspecified atrial fibrillation; K21.9 Gastro-esophageal reflux disease without esophagitis; N40.0 Benign prostatic hyperplasia without lower urinary tract symptoms; M10.9 Gout, unspecified; R77.8 Other specified abnormalities of plasma proteins; Z79.01 Long term (current) use of anticoagulants; Z88.8 Allergy status to other drugs, medicaments and biological substances; Z88.5 Allergy status to narcotic agent; Z88.1 Allergy status to other antibiotic agents; V89.2XXA Person injured in unspecified motor-vehicle accident, traffic, initial encounter; Z83.3 Family history of diabetes mellitus; Z80.42 Family history of malignant neoplasm of prostate
CPT/HCPCS: 70450; 71045; 71260; 72125; 73080; 74177; 80048 ×2; 80061; 80076; 81000; 84484 ×2; 85025; 85027; 85610; 85730; 93005 ×2; 93306; 96374; 99284; G0378; G0480; 36415; 80320

== ENCOUNTER 2021-01-30 12:18 | Emergency (ER) | payer OTHER, MEDICARE ==
[~2021-01-30] VITALS: Ht 167 cm; Wt 79.0 kg
[~2021-01-30 12:18] MED LIST changes: +DICL100G13 TOP; -DICL100G31 TOP; +FLUT1BLS11 INH; +MAGN250T35 PO; +OMEG-86 PO; -OMEP40CA27 PO; +OMEP40CA6 PO; +VITA1CAP19 PO
--- NOTE | 2021-01-30 12:45 | ED Cardiac General ---
History of Present Illness General Chief Complaint: Cardiac/General Problems Stated Complaint: ELEV HR Nursing Triage Note: PATIENT REPORTS HE WOKE UP FEELING LIKE HIS HEART WAS RACING. HAS A HX OF IRREGULAR HEART RYTHM. PATIENT AMB. TO ROOM 06 WITHOUT DIFFICULTY. REPORTS IMPROVEMENT. Source: patient, family Exam Limitations: no limitations History of Present Illness Date Seen by Provider: Jan 30, 2021 Time Seen by Provider: 12:25 Initial Comments Patient is an 85-year-old who presents to the emergency department today with a chief complaint of heart racing this morning, felt a little short of breath all night last night. Patient denies any recent chest pain. He has a history of paroxysmal atrial fibrillation, he is chronically anticoagulated on Eliquis. His natural resources engineer is Dr. Jerry Vera at [facility] in [place]. Patient states he last saw him in October of this year. Patient states that he has been compliant with his medications. He has not missed or skipped any. He states that while in the car on the way up to the hospital he all of a sudden felt better. He did say when he checked his pulse rate this morning it was running in the 130s. He did not feel lightheaded or dizzy. He was not nauseous. He was a little short of breath. He has no prior history of coronary artery disease, he has been cathed twice per his report. Patient denies any recent illness such as fevers, chills, cough or congestion. He is Covid vaccinated and did have Covid in October. Patient's daughter is at the bedside and provides further history saying that she feels like he has been doing a little bit more activity than usual as his has recently had knee surgery and just got out of rehab. Patient denies any leg swelling or calf cramping. No URI symptoms. No problems with bowel or bladder. All other review of systems reviewed and negative except as stated. Timing/Duration: 12 hours Severity: moderate Activities at Onset: sleep Prior CP/Workup: cardiac cath, other (h/o afib) NTG SL LOADING DOCK HELPER: No ASA po LOADING DOCK HELPER: No Associated Systoms: Shortness of Air Allergies and Home Medications Allergies Coded Allergies: vancomycin (Verified Allergy, Severe, 05/28/19) Pt states his face got really red and he went into ER for reaction. gemfibrozil (Verified Allergy, Unknown, 05/27/19) valdecoxib (Verified Allergy, Unknown, 05/27/19) Patient Home Medication List Home Medication List Reviewed: Yes Allopurinol (Allopurinol) 300 Mg Tablet, 300 MG PO HS, (Reported) Entered as Reported by: LISA GEE on 11/22/18 132 Apixaban (Eliquis) 2.5 Mg Tablet, 2.5 MG PO BID, (Reported) Entered as Reported by: LISA GEE on 11/22/18 132 Atorvastatin Calcium (Atorvastatin Calcium) 40 Mg Tablet, 40 MG PO DAILY, (Reported) Entered as Reported by: LISA GEE on 11/22/18 132 Carboxymethylcellulose Sodium (Refresh Tears) 15 Ml Drops, 1 DROP OU BID, (Repor joyce) Entered as Reported by: LISA GEE on 11/22/18 132 Carvedilol (Carvedilol) 6.25 Mg Tablet, 6.25 MG PO BID, (Reported) Entered as Reported by: LISA GEE on 11/22/18 132 Cholecalciferol (Vitamin D3) (Vitamin D3) 25 Mcg Capsule, 25 MCG PO HS, (Reported) Entered as Reported by: CATHERINE AWLKER on 05/18/20 110 Diphenhydramine HCl (Allergy Relief) 25 Mg Capsule, 25 MG PO HS PRN for ALLERGIES, (Reported) Entered as Reported by: LISA GEE on 11/22/18 132 Fluticasone Propion/Salmeterol (Fluticasone-Salmeterol 100-50) 1 Each Blst.w.dev, 1 PUFF INH BID, (Reported) Entered as Reported by: CATHERINE WALKER on 05/18/20 1107 Fluticasone Propionate (Flonase Allergy Relief) 9.9 Ml [place].susp, 1 SPRAY NS HS PRN for ALLERGIES, (Reported) Entered as Reported by: LISA GEE on 11/22/18 132 Furosemide (Furosemide) 20 Mg Tablet, 20 MG PO DAILY, (Reported) Entered as Reported by: LISA GEE on 11/22/18 132 Magnesium Oxide (Magnesium Oxide) 250 Mg Tablet, 250 MG PO DAILY, (Reported) Entered as Reported by: CATHERINE WALKER on 05/18/20 1110 Methotrexate Sodium (Methotrexate) 2.5 Mg Tablet, 10 MG PO THURS, (Reported) Entered as Reported by: LISA GEE on 11/25/18 0830 [place]-3/Dha/Epa/Dpa/Fish Oil ([place]-3 2100 Softgel) 1 Each Capsule, 1 EACH PO HS, (Reported) Entered as Reported by: CATHERINE WALKER on 05/18/20 110 Omeprazole (Omeprazole) 40 Mg Capsule.dr, 40 MG PO DAILY, (Reported) Entered as Reported by: LISA GEE on 11/22/18 132 Pedi Mv No.79/Ferrous Fumarate (Flintstones with Iron Tab Chew) 18 Mg Tab.chew, 18 MG PO HS, (Reported) Entered as Reported by: LISA GEE on 11/22/18 132 Prednisone (Prednisone) 5 Mg Tablet, 5 MG PO DAILY, (Reported) Entered as Reported by: LISA GEE on 11/22/181320 Tamsulosin HCl (Flomax) 0.4 Mg Cap, 0.4 MG PO DAILY, (Reported) Entered as Reported by: CATHERINE WALKER on 05/18/20 110 Vit C/E/Zn/Coppr/Lutein/Zeaxan (Preservision Areds 2 Softgel) 1 Each Capsule, 1 CAP PO HS, (Reported) Entered as Reported by: LISA GEE on 11/22/181320 Vitamin B Complex (Super B-50 Complex) 1 Each Capsule, 1 EACH PO DAILY, (Reported) Entered as Reported by: CATHERINE WALKER on 05/18/20 110 Zinc Amino Acid Chelate (Zinc) 50 Mg Tablet, 50 MG PO DAILY, (Reported) Entered as Reported by: LISA GEE on 11/22/18 132 [Jessy's Leg Cramps] , 1 TAB SL HS PRN for CRAMPS, (Reported) Entered as Reported by: LISA GEE on 11/22/181320 Review of Systems Review of Systems Constitutional: see HPI EENTM: No Symptoms Reported Respiratory: Shortness of Air Cardiovascular: Palpitations Gastrointestinal: No Symptoms Reported Genitourinary: No Symptoms Reported Musculoskeletal: no symptoms reported Skin: no symptoms reported Psychiatric/Neurological: No Symptoms Reported All Other Systems Reviewed Negative Unless Noted: Yes Past Ncpwyry-Yclmuk-Hehlys Hx Patient Social History Tobacco Use?: No Substance use?: No Alcohol Use?: No Pt feels they are or have been: No Immunizations Up To Date Tetanus Booster (TDap): Unknown First/Initial COVID19 Vaccinat: 05/17/2020 Second COVID19 Vaccination Adalid: 06/17/2020 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: [employer] Seasonal Allergies Seasonal Allergies: Yes Past Medical History Surgeries: Yes Orthopedic, Prostatectomy Respiratory: Yes COPD Currently Using CPAP: Yes Currently Using BIPAP: No Atrial Fibrillation, Coronary Artery Disease, Heart Murmur, High Cholesterol, Hypertension, Valvular Heart Disease Neurological: No Benign Prostatic Hyperpl, Renal Failure Gastrointestinal: Yes Gastroesophageal Reflux Musculoskeletal: No Arthritis, Gout Endocrine: No HEENT: Yes Cataract Loss of Vision: Denies Hearing Impairment: Denies, Bilateral Hearing Aide Cancer: Yes Prostate, Lymphoma What Type of Treatment Did You: Radiation Psychosocial: No Integumentary: 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 6.4oz. 78.170459pu; 28.00 BMI Method: General Appearance: No Apparent Distress, WD/WN, Other (Pleasant smiling conversant, no acute distress) HEENT: PERRL/EOMI Neck: Normal Inspection Respiratory: Lungs Clear, Normal Breath Sounds, No Accessory Muscle Use, No Respiratory Distress Cardiovascular: Regular Rate, Rhythm, Systolic Murmur (Coarse systolic murmur heard throughout the precordium) Gastrointestinal: Non Tender, Soft Extremity: Normal Capillary Refill, Normal Inspection, Normal Range of Motion, Non Tender, No Calf Tenderness, No Pedal Edema Neurologic/Psychiatric: Alert, Oriented x3, No Motor/Sensory Deficits, Normal Mood/Affect Skin: Normal Color, Warm/Dry Progress/Results/Core Measures Results/Orders My Orders Orders - JAMI PELLETIER MD Ekg Tracing (01/30/21 12:37) Vital Signs/I&O 01/30/21 01/30/21 12:25 12:25 Temp 36.3 36.3 Pulse 78 78 Resp 15 15 B/P (MAP) 131/96 (108) 131/96 Pulse Ox 95 O2 Delivery Room Air Room Air Blood Pressure Mean: 108 Progress Progress Note : Time: 12:44 Progress Note Patient states that by the time he ambulated into the emergency department his symptoms had completely resolved. Suspect he had a run of paroxysmal atrial fibrillation causing his symptoms. He is currently running at a rate of high 70s low 80s with a good blood pressure. Completely asymptomatic. He denies any recent illnesses, had no chest pain. No leg swelling. I at this time do not have a reason to perform blood work. His appetite's been good his output has been good. He has not missed or skipped any of his medications. I think after short course of monitoring here in the ER to make sure that he does not pop back up into A. fib RVR he will be safe to discharge. Initial ECG Impression Date: Jan 30, 2021 Initial ECG Impression Time: 12:27 Initial ECG Rate: 79 Initial ECG Rhythm: Normal Sinus Initial ECG Intervals VA 176 QRS 140 QTc 479 Patient has right bundle branch block, criteria for LVH, no ectopy, no ST segmen t elevation or depression is noted Initial ECG Impression: Normal Departure Impression Primary Impression: Normal exam Additional Impression: History of atrial fibrillation Disposition: 01 HOME, SELF-CARE Condition: Stable Departure-Patient Inst. Decision time for Depature: 13:01 Referrals: LEE FERNANDEZ DO (PCP/Family) Primary Care Physician Patient Instructions: Atrial Fibrillation (DC) Add. Discharge Instructions: Continue your daily medications as prescribed. Drink plenty of fluids to stay well hydrated. If you have a return of symptoms, especially with chest pain, please come back to the Emergency Department for re-evaluation. Please keep your followups with Dr Vera. JAMI PELLETIER MD Jan 30, 2021 12:45
[2021-01-30 13:07] VITALS: BP 108/72
== END 2021-01-30 13:07 | disposition home or self-care (01) ==
LOC: EDUNIT# 12:18 → ER 12:20
DX: I48.0 Paroxysmal atrial fibrillation (principal); J44.9 Chronic obstructive pulmonary disease, unspecified; I10 Essential (primary) hypertension; K21.9 Gastro-esophageal reflux disease without esophagitis; N40.0 Benign prostatic hyperplasia without lower urinary tract symptoms; I25.10 Atherosclerotic heart disease of native coronary artery without angina pectoris; E78.00 Pure hypercholesterolemia, unspecified; M10.9 Gout, unspecified; Z79.899 Other long term (current) drug therapy; Z79.01 Long term (current) use of anticoagulants
CPT/HCPCS: 93005

== ENCOUNTER 2021-03-13 12:18 | Inpatient (IN) | payer MEDICARE, OTHER ==
[~2021-03-13] VITALS: Ht 167.6 cm; Wt 77.1 kg
[~2021-03-13 12:18] MED LIST changes: +POTA-160 PO; -POTA10TA6 PO
[2021-03-13] MEDS ORDERED: dilTIAZem DRIP PRE-MIX 125 ML IV SCH (13:30)
[2021-03-13] MEDS ORDERED: ASPIRIN 81 MG CHEW (CHILDREN'S ASA) PO ONE (13:30)
[2021-03-13] MEDS: NS IV 1000 ML 1,000 ML IV SCH ×2 (13:40→14:46)
[2021-03-13 13:45] LABS: BASOPHILS % (AUTO) 0 % (0-10); EOSINOPHILS # (AUTO) 0.1 10^3/uL (0.0-0.3); EOSINOPHILS % (AUTO) 1 % (0-10); HEMATOCRIT 44 % (40-54); HEMOGLOBIN 14.6 g/dL (13.3-17.7); LYMPHOCYTES % (AUTO) 22 % (12-44); MEAN CORPUSCULAR HEMOGLOBIN 35 pg (25-34); MEAN CORPUSCULAR HGB CONC 33 g/dL (32-36); MEAN CORPUSCULAR VOLUME 106 fL (80-99); MEAN PLATELET VOLUME 10.5 fL (9.0-12.2); MONOCYTES # (AUTO) 0.8 10^3/uL (0.0-1.0); MONOCYTES % (AUTO) 6 % (0-12); NEUTROPHILS # (AUTO) 9.5 10^3/uL (1.8-7.8); NEUTROPHILS % (AUTO) 71 % (42-75); PLATELET COUNT 163 10^3/uL (130-400); WHITE BLOOD COUNT 13.5 10^3/uL (4.3-11.0)
[2021-03-13] MEDS ORDERED: NS IV 1000 ML 1,000 ML IV SCH (13:45)
[2021-03-13] MEDS ORDERED: ENOXAPARIN 100 MG/1 ML (LOVENOX) SYR SC ONE (13:45)
[2021-03-13 13:55] LABS: ALBUMIN 3.8 GM/DL (3.2-4.5)
[2021-03-13 13:56] LABS: CALCIUM 9.3 MG/DL (8.5-10.1)
[2021-03-13 13:57] LABS: TOTAL PROTEIN 6.7 GM/DL (6.4-8.2)
[2021-03-13 13:58] LABS: INR 1.1 (0.8-1.4); PROTHROMBIN TIME PATIENT 15.1 SEC (12.2-14.7)
--- NOTE | 2021-03-13 13:58 | Diagnostic Imaging Report ---
Indication: Tachycardia Findings: The heart is enlarged. There is vascular congestion. There are bilateral pulmonary opacities suspicious for pulmonary edema, pneumonia superimposed could not be excluded. Impression: Findings most likely reflects extensive pulmonary edema with cardiomegaly and vascular congestion. Dictated by: Dictated on workstation # [id number]
[2021-03-13 13:59] LABS: BILIRUBIN,TOTAL 0.8 MG/DL (0.1-1.0)
[2021-03-13] MEDS ORDERED: FUROSEMIDE 40 MG/4 ML INJ (LASIX) IVP ONE (14:00)
[2021-03-13 14:01] LABS: CREATININE SERUM 1.58 MG/DL (0.60-1.30)
--- NOTE | 2021-03-13 14:03 | ED Cardiac General ---
History of Present Illness General Chief Complaint: Cardiac/General Problems Stated Complaint: ELEV HR/COUGH Source: patient History of Present Illness Date Seen by Provider: Mar 13, 2021 Time Seen by Provider: 13:16 Initial Comments PT ARRIVES VIA POV FROM HOME STATES HE WOKE UP YESTERDAY MORNING AT 0300, WITH RAPID HEART RATE, SHORTNESS OF BREATH AND CHEST PRESSURE--SYMPTOMS WOKE HIM UP SYMPTOMS HAVE BEEN CONSTANT, AND CONTINUE ALL DAY TODAY HAS HISTORY OF ATRIAL FIBRILLATION WITH RVR, AND IS ON ELIQUIS AND CARVEDILOL. STATES HE DID NOT TAKE HIS CARVEDILOL YESTERDAY BECAUSE HIS BLOOD PRESSURE WAS LOW ALL DAY STATES HE HAS HAD TO BE CARDIOVERTED 3-4 TIMES IN THE PAST NO RECENT PROBLEMS, PRIOR TO YESTERDAY NO MEDICATION CHANGES PT DOES NOT NORMALLY WEAR HOME O2, BUT DOES WEAR CPAP AT NIGHT. WAS UNAWARE OF LEG SWELLING OR FACIAL SWELLING NO SWEATS NO SYNCOPE NO NAUSEA/VOMITING NO FEVER OR RECENT ILLNESS PT HAS HAD COVID-19 VACCINE PCP: DR. FERNANDEZ IN [place] PODIATRIC AIDE: DR. PULLIAM AT [facility] [place] Allergies and Home Medications Allergies Coded Allergies: vancomycin (Verified Allergy, Severe, 05/28/19) Pt states his face got really red and he went into ER for reaction. gemfibrozil (Verified Allergy, Unknown, 05/27/19) valdecoxib (Verified Allergy, Unknown, 05/27/19) Patient Home Medication List Home Medication List Reviewed: Yes Allopurinol (Allopurinol) 300 Mg Tablet, 300 MG PO DAILY, (Reported) Entered as Reported by: LISA GEE on 11/22/181320 Last Action: Reviewed Apixaban (Eliquis) 2.5 Mg Tablet, 2.5 MG PO BID, (Reported) Entered as Reported by: LISA GEE on 11/22/181320 Last Action: Reviewed Atorvastatin Calcium (Atorvastatin Calcium) 40 Mg Tablet, 40 MG PO DAILY, (Reported) Entered as Reported by: LISA GEE on 11/22/181320 Last Action: Reviewed Carboxymethylcellulose Sodium (Refresh Tears) 15 Ml Drops, 1 DROP OD BID, (Reported) Entered as Reported by: CATHERINE WALKER on 03/14/21 1117 Last Action: Reviewed Carvedilol (Carvedilol) 6.25 Mg Tablet, 6.25 MG PO BID, (Reported) Entered as Reported by: LISA GEE on 11/22/181320 Last Action: Reviewed Cholecalciferol (Vitamin D3) (Vitamin D3) 25 Mcg Capsule, 25 MCG PO HS, (Reported) Entered as Reported by: CATHERINE WALKER on 05/18/201106 Last Action: Reviewed Diphenhydramine HCl (Allergy Relief) 25 Mg Capsule, 25 MG PO HS PRN for ALLERGIES, (Reported) Entered as Reported by: LISA GEE on 11/22/181320 Last Action: Reviewed Fluticasone Propion/Salmeterol (Fluticasone-Salmeterol 100-50) 1 Each Blst.w.dev, 1 PUFF INH BID, (Reported) Entered as Reported by: CATHERINE WALKER on 05/18/201106 Last Action: Reviewed Fluticasone Propionate (Flonase Allergy Relief) 9.9 Ml [place].susp, 1 SPRAY NS HS PRN for CONGESTION, (Reported) Entered as Reported by: LISA GEE on 11/22/181320 Last Action: Reviewed Furosemide (Furosemide) 20 Mg Tablet, 20 MG PO DAILY, (Reported) Entered as Reported by: LISA GEE on 11/22/181320 Last Action: Reviewed Iron Polysaccharide Complex (Ferrex 150) 150 Mg Capsule, 150 MG PO HS, (Reported) Entered as Reported by: CATHERINE WALKER on 03/14/21 111 Last Action: Reviewed Magnesium Oxide (Magnesium Oxide) 250 Mg Tablet, 250 MG PO DAILY, (Reported) Entered as Reported by: CATHERINE WALKER on 05/18/20 111 Last Action: Reviewed Methotrexate Sodium (Methotrexate) 2.5 Mg Tablet, 10 MG PO THURS, (Reported) Entered as Reported by: LISA GEE on 11/25/18 0830 Last Action: Reviewed [place]-3/Dha/Epa/Dpa/Fish Oil ([place]-3 2100 Softgel) 1 Each Capsule, 1 EACH PO HS, (Reported) Entered as Reported by: CATHERINE WALKER on 05/18/201106 Last Action: Reviewed Omeprazole (Omeprazole) 40 Mg Capsule.dr, 40 MG PO DAILY, (Reported) Entered as Reported by: LISA GEE on 11/22/181320 Last Action: Reviewed Pedi Mv No.79/Ferrous Fumarate (Flintstones with Iron Tab Chew) 18 Mg Tab.chew, 18 MG PO HS, (Reported) Entered as Reported by: LISA GEE on 11/22/181320 Last Action: Reviewed Prednisone (Prednisone) 5 Mg Tablet, 5 MG PO DAILY, (Reported) Entered as Reported by: LISA GEE on 11/22/181320 Last Action: Reviewed Tamsulosin HCl (Flomax) 0.4 Mg Cap, 0.4 MG PO DAILY, (Reported) Entered as Reported by: CATHERINE WALKER on 05/18/20 110 Last Action: Reviewed Vit C/E/Zn/Coppr/Lutein/Zeaxan (Preservision Areds 2 Softgel) 1 Each Capsule, 1 EACH PO HS, (Reported) Entered as Reported by: CATHERINE WALKER on 03/14/21 111 Last Action: Reviewed Zinc Amino Acid Chelate (Zinc) 50 Mg Tablet, 50 MG PO DAILY, (Reported) Entered as Reported by: LISA GEE on 11/22/181320 Last Action: Reviewed [Jessy's Leg Cramps] , 1 TAB SL HS PRN for CRAMPS, (Reported) Entered as Reported by: LISA GEE on 11/22/181320 Last Action: Reviewed Review of Systems Review of Systems Constitutional: no symptoms reported Respiratory: See HPI, Shortness of Air Cardiovascular: See HPI, Chest Pain, Irregular Heart Rate, Palpitations Gastrointestinal: No Symptoms Reported Genitourinary: No Symptoms Reported Musculoskeletal: no symptoms reported Skin: no symptoms reported Psychiatric/Neurological: No Symptoms Reported Endocrine: No Symptoms Reported Past Tkgovet-Hhfjze-Hadrib Hx Patient Social History Tobacco Use?: No Substance use?: No Alcohol Use?: No Immunizations Up To Date Tetanus Booster (TDap): Unknown First/Initial COVID19 Vaccinat: 05/17/2020 Second COVID19 Vaccination Adalid: 06/17/2020 Seasonal Allergies Seasonal Allergies: Yes Past Medical History Surgery/Hospitalization HX: RIGHT HIP SURGERY CARDIOVERSIONS Surgeries: Yes Orthopedic, Prostatectomy Respiratory: Yes Sleep Apnea, COPD Currently Using CPAP: Yes Currently Using BIPAP: No Cardiac: Yes Atrial Fibrillation, Chronic Edema/Swelling, Coronary Artery Disease, Heart Murmur, High Cholesterol, Hypertension, Valvular Heart Disease Neurological: No Genitourinary: Yes Benign Prostatic Hyperpl, Renal Failure Gastrointestinal: Yes Gastroesophageal Reflux Musculoskeletal: Yes (RIGHT HIP SURGERY) Arthritis, Gout Endocrine: No HEENT: Yes Cataract Loss of Vision: Denies Hearing Impairment: Denies, Bilateral Hearing Aide Cancer: Yes Prostate, Lymphoma Did You Recieve Any Treatments: Yes What Type of Treatment Did You: Radiation Psychosocial: No Integumentary: Yes (DERMATITIS ON FACE) Blood Disorders: Yes Adverse Reaction/Blood Tranf: Yes (THINKS HE HAS HAD A RXN, BUT UNSURE WHAT) Family Medical History Cardiovascular disease 19 MOTHER Diabetes mellitus 19 MOTHER FH: prostate cancer G8 BROTHER Myocardial infarction 19 FATHER No Pertinent Family Hx Physical Exam Vital Signs Capillary Refill : Height, Weight, BMI Height: 5'6.00" Weight: 173lbs. 6.4oz. [id number]; 28.00 BMI Method: General Appearance: Mild Distress HEENT: Other (PERIORBITAL EDEMA) Respiratory: Decreased Breath Sounds (IN BASES), Wheezing, Other (MILDLY DYSPNEIC AT REST, ABLE TO TALK IN SHORT SENTENCES) Cardiovascular: Irregularly Irregular, Tachycardia Gastrointestinal: Non Tender, Soft, Other (ROTUND) Extremity: Pedal Edema (2+ EDEMA BILATERALLY) Neurologic/Psychiatric: Alert, Oriented x3, No Motor/Sensory Deficits, Normal Mood/Affect Skin: Normal Color, Warm/Dry Procedures/Interventions Patient Education: Explained Benefits, Explained Risks, Pt. Ack. Understanding Agreement on procedure with pt: Yes Breath Sounds per Auscultation: Wheezes Heart Sounds per Auscultation: Irregular Airway Exam: Mouth opens >2 fingers PT SEDATED WITH FENTANYL AND VERSED AND SUCCESSFULLY CARDIOVERTED AT 50 JOULES Progress/Results/Core Measures Results/Orders Lab Results Laboratory Tests Test 03/13/21 13:25 03/13/21 13:34 Range/Units Influenza Type A (RT-PCR) Not Detected Not Detecte Influenza Type B (RT-PCR) Not Detected Not Detecte SARS-CoV-2 RNA (RT-PCR) Not Detected Not Detecte White Blood Count 13.5 H 4.3-11.0 10^3/uL Red Blood Count 4.16 L 4.30-5.52 10^6/uL Hemoglobin 14.6 13.3-17.7 g/dL Hematocrit 44 40-54 % Mean Corpuscular Volume 106 H 80-99 fL Mean Corpuscular Hemoglobin 35 H 25-34 pg Mean Corpuscular Hemoglobin Concent 33 32-36 g/dL Red Cell Distribution Width 14.8 H 10.0-14.5 % Platelet Count 163 130-400 10^3/uL Mean Platelet Volume 10.5 9.0-12.2 fL Immature Granulocyte % (Auto) 1 % Neutrophils (%) (Auto) 71 42-75 % Lymphocytes (%) (Auto) 22 12-44 % Monocytes (%) (Auto) 6 0-12 % Eosinophils (%) (Auto) 1 0-10 % Basophils (%) (Auto) 0 0-10 % Neutrophils # (Auto) 9.5 H 1.8-7.8 10^3/uL Lymphocytes # (Auto) 3.0 1.0-4.0 10^3/uL Monocytes # (Auto) 0.8 0.0-1.0 10^3/uL Eosinophils # (Auto) 0.1 0.0-0.3 10^3/uL Basophils # (Auto) 0.0 0.0-0.1 10^3/uL Immature Granulocyte # (Auto) 0.1 0.0-0.1 10^3/uL Erythrocyte Sedimentation Rate 13 0-30 MM/HR Prothrombin Time 15.1 H 12.2-14.7 SEC INR Comment 1.1 0.8-1.4 Activated Partial Thromboplast Time 29 24-35 SEC Sodium Level 139 135-145 MMOL/L Potassium Level 4.0 3.6-5.0 MMOL/L Chloride Level 107 98-107 MMOL/L Carbon Dioxide Level 20 L 21-32 MMOL/L Anion Gap 12 5-14 MMOL/L Blood Urea Nitrogen 28 H 7-18 MG/DL Creatinine 1.58 H 0.60-1.30 MG/DL Estimat Glomerular Filtration Rate 42 BUN/Creatinine Ratio 18 Glucose Level 141 H 70-105 MG/DL Calcium Level 9.3 8.5-10.1 MG/DL Corrected Calcium 9.5 8.5-10.1 MG/DL Magnesium Level 1.8 1.6-2.4 MG/DL Total Bilirubin 0.8 0.1-1.0 MG/DL Aspartate Amino Transf (AST/SGOT) 34 5-34 U/L Alanine Aminotransferase (ALT/SGPT) 35 0-55 U/L Alkaline Phosphatase 79 40-136 U/L Total Creatine Kinase 173 30-200 U/L Creatine Kinase MB 12.6 *H <6.6 NG/ML Myoglobin 179.5 H 10.0-92.0 NG/ML Troponin I 1.674 *H <0.028 NG/ML C-Reactive Protein High Sensitivity 0.35 0.00-0.50 MG/DL B-Type Natriuretic Peptide 1565.5 H <100.0 PG/ML Total Protein 6.7 6.4-8.2 GM/DL Albumin 3.8 3.2-4.5 GM/DL TSH [place] Testing 1.95 0.35-4.94 UIU/ML My Orders Orders - ERMIAS [facility] DO Ed Iv/Invasive Line Start (03/13/21 13:18) Ekg Tracing (03/13/21 13:18) O2 (03/13/21 13:18) Monitor-Rhythm Ecg Trace Only (03/13/21 13:18) Chest 1 View, Ap/Pa Only (03/13/21 13:18) Bnp [place] (03/13/21 13:18) Cbc With Automated Diff (03/13/21 13:18) Comprehensive Metabolic Panel (03/13/21 13:18) Creatine Kinase (03/13/21 13:18) Creatine Kinase Mb (03/13/21 13:18) Hs C Reactive Protein (03/13/21 13:18) Magnesium (03/13/21 13:18) Protime With Inr (03/13/21 13:18) Partial Thromboplastin Time (03/13/21 13:18) Thyroid Analyzer (03/13/21 13:18) Erythrocyte Sedimentation Rate (03/13/21 13:18) Myoglobin Serum (03/13/21 13:18) Troponin I [place] (03/13/21 13:18) Covid 19 Inhouse Test (03/13/21 13:18) Influenza A And B By Pcr (03/13/21 13:18) Isolation Central Supply Req (03/13/21 13:18) Aspirin Chewable Tablet (Baby Aspirin Ch (03/13/21 13:30) Diltiazem Drip Pre-Mix (Cardizem Drip Pr (03/13/21 13:30) Diltiazem Injection (Cardizem Injection) (03/13/21 13:30) Enoxaparin Injection (Lovenox Injection) (03/13/21 13:45) Ed Iv/Invasive Line Start (03/13/21 13:40) Ns Iv 1000 Ml (Sodium Chloride 0.9%) (03/13/21 13:45) Ed Iv/Invasive Line Start (03/13/21 13:54) Ekg Tracing (03/13/21 13:54) Ekg Tracing (03/13/21 13:54) Ed Iv/Invasive Line Start (03/13/21 13:54) Ns Iv 1000 Ml (Sodium Chloride 0.9%) (03/13/21 14:00) Furosemide Injection (Lasix Injection) (03/13/21 14:00) Catheter(Urinary) Insert & Ass 03,15 (03/13/21 13:56) Ekg Tracing (03/13/21 14:04) Ed Admission (Communication) (03/13/21 15:36) Medications Given in ED Vital Signs/I&O Progress Progress Note : Progress Note PLACED ON O2 AT 2L/NC FOR O2 SATS OF 90% ON ROOM AIR PT IN ATRIAL FIBRILLATION WITH RVR, WITH RATE UP TO 190 BP ON ARRIVAL > 100 SYSTOLIC, THEN QUICKLY DROPPED TO 70 SYSTOLIC AND THEREFORE CARDIOVERSION WAS SUCCESSFULLY PERFORMED, WITH PT NOW BACK TO HEART RATE IN 70'S. PT DID RECEIVE AN INITIAL FLUID BOLUS FOR HYPOTENSION, THIS WAS STOPPED AFTER BP REACHED > 100 SYSTOLIC AND CHF WAS NOTED ON CXR PT THEN GIVEN LASIX, WITH GOOD DIURESIS AND URINE OUTPUT OF >1000 ML PT CONTINUED TO REQUIRE O2 AT 4L/NC AND PT HAS AUDIBLE WHEEZING, BUT PT IS LESS DYSPNEIC AT REST PT CONTINUES TO STATE THAT HE FEELS MUCH BETTER, AND HAS NO COMPLAINTS OF ANY KIND FOR REMAINDER OF ER STAY DUE TO LACK OF BED AVAILABILITY HERE OR ANY OTHER HOSPITAL IN [facility] OR [place], PT WAS HELD IN ER FOR SEVERAL HOURS. AT 1530, WAS INFORMED BY BICYCLE RENTAL CLERK THAT THERE WOULD BE A BED AVAILABLE THIS EVENING AT 1900 Initial ECG Impression Date: Mar 13, 2021 Initial ECG Impression Time: 13:17 Initial ECG Rate: 124 Initial ECG Rhythm: A Fib/Flutter Comment EKG #2 AT 1333--RATE 179--SUPRAVENTRICULAR TACHYCARDIA EKG #3 AT 1335--RATE 95, NORMAL SINUS RHYTHM EKG #4 AT 1350--RATE 75, NORMAL SINUS RHYTHM Diagnostic Imaging Comments CXR--PER RADIOLOGIST REPORT AT 1402 Findings: The heart is enlarged. There is vascular congestion. There are bilateral pulmonary opacities suspicious for pulmonary edema, pneumonia superimposed could not be excluded. Impression: Findings most likely reflects extensive pulmonary edema with cardiomegaly and vascular congestion. Reviewed: Reviewed by Me Critical Care Note Critical Care Progress SUCCESSFUL CARDIOVERSION Departure Communication (Admissions) 1424--SPOKE WITH DR. LOPEZ FOR CARDIOLOGY CONSULT. HE ADVISES TO HOLD CARVEDILOL AT THIS TIME DUE TO HYPOTENSION, AND CONTINUE ALL REGULAR MEDICATIONS 1531--SPOKE WITH DR. JACK, HOSPITALIST, ACCEPTS PT FOR ADMIT ( PT WILL BE HELD IN ER UNTIL AFTER 1900 WHEN BED IN CARDIAC STEP DOWN IS AVAILABLE) AND HE WILL DO ADMIT ORDERS. Impression Primary Impression: Atrial fibrillation with rapid ventricular response Additional Impressions: Elevated troponin NSTEMI (non-ST elevated myocardial infarction) CHF (congestive heart failure) Hypoxia Disposition: ADMITTED INPATIENT Condition: Improved Admissions Decision to Admit Reason: Admit from ER (General) Decision to Admit/Date: Mar 13, 2021 Time/Decision to Admit Time: 15:35 Departure-Patient Inst. Referrals: LEE FERNANDEZ DO (PCP/Family) Primary Care Physician ERMIAS FRANKLIN DO Mar 13, 2021 14:03
[2021-03-13 14:04] LABS: MAGNESIUM 1.8 MG/DL (1.6-2.4)
[2021-03-13 14:16] LABS: ERYTHROCYTE SEDIMENTATION RATE 13 MM/HR (0-30)
[2021-03-13 14:19] LABS: CREATINE KINASE MB 12.6 NG/ML (<6.6)
[2021-03-13 14:24] LABS: TSH (THYROID ANALYZER) 1.95 UIU/ML (0.35-4.94)
[2021-03-13 18:05] VITALS: BP 125/78
[2021-03-13] MEDS ORDERED: MELATONIN 3 MG TABLET PO PRN (18:45)
[2021-03-13] MEDS ORDERED: polyethylene glycoL POWDER 17 GM (MIRALAX) PACK PO PRN (18:45)
[2021-03-13] MEDS ORDERED: ANTACID SUSP 30 ML UDC (MYLANTA) PO PRN (18:45)
[2021-03-13] MEDS ORDERED: ACETAMINOPHEN 325 MG TABLET PO PRN (18:45)
[2021-03-13] MEDS ORDERED: ONDANSETRON 4 MG/2 ML (SDV) Z0FRAN IV PRN (18:45)
[2021-03-13] MEDS ORDERED: ONDANSETRON 4 MG (ZOFRAN) ORAL DISSOLVE TAB PO PRN (18:45)
[2021-03-13 19:52] VITALS: BP 119/74
[2021-03-13] MEDS: SENNOSIDES 8.6 MG (SENOKOT) TAB PO SCH (20:58)
[2021-03-13] MEDS: DOCUSATE SODIUM 100 MG (COLACE) CAP PO SCH (20:58)
[2021-03-13 21:26] VITALS: BP 92/79
[2021-03-13] MEDS: RT-ALBUTEROL/IPRATROPIUM 3 ML (DUONEB) VIAL INH SCH (23:20)
[2021-03-14] MEDS ORDERED: RT-ALBUTEROL/IPRATROPIUM 3 ML (DUONEB) VIAL INH PRN
[2021-03-14 00:45] VITALS: BP 106/70
[2021-03-14] MEDS: RT-ALBUTEROL/IPRATROPIUM 3 ML (DUONEB) VIAL INH SCH ×6 (03:35→22:28)
[2021-03-14 04:57] VITALS: BP 118/75
[2021-03-14 05:12] LABS: BASOPHILS % (AUTO) 0 % (0-10); EOSINOPHILS # (AUTO) 0.2 10^3/uL (0.0-0.3); EOSINOPHILS % (AUTO) 2 % (0-10); HEMATOCRIT 39 % (40-54); LYMPHOCYTES # (AUTO) 2.8 10^3/uL (1.0-4.0); LYMPHOCYTES % (AUTO) 25 % (12-44); MEAN CORPUSCULAR HEMOGLOBIN 35 pg (25-34); MEAN CORPUSCULAR HGB CONC 34 g/dL (32-36); MEAN CORPUSCULAR VOLUME 106 fL (80-99); MEAN PLATELET VOLUME 10.4 fL (9.0-12.2); MONOCYTES # (AUTO) 0.9 10^3/uL (0.0-1.0); MONOCYTES % (AUTO) 8 % (0-12); NEUTROPHILS # (AUTO) 7.2 10^3/uL (1.8-7.8); NEUTROPHILS % (AUTO) 64 % (42-75); PLATELET COUNT 145 10^3/uL (130-400); WHITE BLOOD COUNT 11.2 10^3/uL (4.3-11.0)
[2021-03-14 05:21] LABS: POTASSIUM 3.6 MMOL/L (3.6-5.0)
[2021-03-14 05:23] LABS: CALCIUM 8.6 MG/DL (8.5-10.1)
[2021-03-14 05:27] LABS: CREATININE SERUM 1.46 MG/DL (0.60-1.30)
[2021-03-14] MEDS ORDERED: ENOXAPARIN 80 MG/0.8 ML (LOVENOX) SYR SC SCH (06:00)
[2021-03-14] MEDS: predniSONE 5 MG TAB PO SCH (06:17)
[2021-03-14] MEDS: PANTOPRAZOLE 40 MG (PROTONIX) TAB PO SCH (06:19)
[2021-03-14 08:00] VITALS: BP 123/78
[2021-03-14] MEDS: ASPIRIN 81 MG CHEW (CHILDREN'S ASA) PO SCH (08:00)
--- NOTE | 2021-03-14 08:43 | Occupational Therapy Eval ---
OT Evaluation-General/PLF Medical Diagnosis Admission Date Mar 13, 2021 at 15:36 Medical Diagnosis: afib with RVR Onset Date: Mar 13, 2021 Therapy Diagnosis Therapy Diagnosis: n/a Height/Weight Height (Feet): 5 Height (Inches): 6.00 Weight (Pounds): 173 Weight (Ounces): 6.4 Precautions Precautions/Isolations: Standard Precautions Referral Physician: Edilia Referral Reason: Evaluation/Treatment Medical History Pertinent Medical History: Atrial Fib, Arthritis, COPD, GERD, HTN Additional Medical History R hip sx, COPD, Afib, CAD, HTN, heart murmur, GERD, arthritis, prostate CA, lymphoma Current History ED due to rapid heart rate, SOB, chest pressure. Social History Home: Single Level Current Living Status: Spouse ADL-Prior Level of Function SCALE: Activities may be completed with or without assistive devices. 0-Lctnkmwgxd-zngrtzi completes the activity by him/herself with no assistance from a helper. 5-Set-up or Clean-up Assistance-helper sets up or cleans up; patient completes activity. [place] assists only prior to or following the activity. 4-Supervision or Touching Assistance-helper provides verbal cues and/or touching/steadying and/or contact guard assistance as patient completes activity. Assistance may be provided throughout the activity or intermittently. 3-Partial/Moderate Assistance-helper does LESS THAN HALF the effort. [place] lifts, holds or supports trunk or limbs, but provides less than half the effort. 2-Substantial/Maximal Assistance-helper does MORE THAN HALF the effort. [place] lifts or holds trunk or limbs and provides more than half the effort. 2-Fvgbensfr-wwhkjh does ALL the effort. Patient does none of the effort to complete the activity. Or, the assistance of 2 or more helpers is required for the patient to complete the activity. If activity was not attempted, code reason: 7-Patient Refused. 9-Not Applicable-not attempted and the patient did not perform the activity before the current illness, exacerbation or injury. 10-Not Attempted due to Environmental Limitations-(lack of equipment, weather restraints, etc.). 88-Not Attempted due to Medical Conditions or Safety Concerns. ADL PLOF Comments Pt reports IND with ADLs at PLOF, no AD/AE. Pt lives with his and assists her with ADLs as needed. Self Care: Independent Functional Cognition: Independent DME/Equipment: Bath Chair, Shower OT Current Status Subjective Pt laying in bed, states NPO for a procedure today. Mental Status/Objective Patient Orientation: Person, Place, Time, Situation Attachments: Oxygen, Telemetry Current Glasses/Contacts: Yes Upper Extremity ROM Slightly decreased RUE ROM due to pt saying he needs to have a shoulder replacement, LUE shoulder replacement ~May 2019 Upper Extremity Coordination WFL ADL-Treatment Eating (QC): 6 (Per clincial judgment. Pt NPO during evaluation.) Oral Hygiene (QC): 5 (Per clincial judgment.) Toileting Hygiene (QC): 6 (Per pt report, able to manage clothing and hygiene.) Other Treatments Pt laying in bed, agreeable to OT evaluation. Pt provided information about PLOF and home set up. Pt transferred supine to sit EOB, then stood EOB for several m inutes independently, no LOB. Pt took a couple side steps up towards HOB, then transferred supine independently. Pt feels like he is at his baseline with ADLs and mobility at this time. Post tx, pt in bed, call light in reach and all needs met. Education OT Patient Education: Correct positioning, Modified ADL techniques, Progress toward Goal/Update tx plan, Purpose of tx/functional activities, Rehab process Teaching Recipient: Patient Teaching Methods: Discussion Response to Teaching: Verbalize Understanding OT Long-Term Goals Meters Superintendent Goals 1=Demonstrate adherence to instructed precautions during ADL tasks. 2=Patient will verbalize/demonstrate understanding of assistive devices/modifications for ADL. 3=Patient will improve strength/tolerance for activity to enable patient to perform ADL's. OT Education/Plan Problem List/Assessment Assessment: No Skilled OT Needs ID'd Pt indicates he is at his PLOF, independent with ADLs and functional mobility, and does not wish to have further OT services. No skilled OT services indicated at this time as pt is at PLOF. D/C from OT. Discharge Recommendations Plan/Recommendations: Discharge/Goals Met Treatment Plan/Plan of Care Patient would benefit from OT for education, treatment and training to promote independence in ADL's, mobility, safety and/or upper extremity function for ADL's. Plan of Care: ADL Retraining, Functional Mobility Treatment Duration: Mar 14, 2021 Frequency: 1 time per week (eval only) Estimated Hrs Per Day: .25 hour per day Rehab Potential: Good Time/GCodes Start Time: 08:10 Stop Time: 08:20 Total Time Billed (hr/min): 10 Billed Treatment Time 1, JERMAN JC OT Mar 14, 2021 08:43
--- NOTE | 2021-03-14 08:58 | Physical Therapy Evaluation ---
PT Evaluation-General Medical Diagnosis Admission Date Mar 13, 2021 at 15:36 Medical Diagnosis: afib with RVR Onset Date: Mar 13, 2021 Therapy Diagnosis Therapy Diagnosis: impaired endurance, strength Height/Weight Height (Feet): 5 Height (Inches): 6.00 Weight (Pounds): 173 Weight (Ounces): 6.4 Precautions Precautions/Isolations: Standard Precautions Referral Physician: Edilia Reason for Referral: Evaluation/Treatment Medical History Pertinent Medical History: Atrial Fib, Arthritis, COPD, GERD, HTN Additional Medical History Past Medical History Surgery/Hospitalization HX: RIGHT HIP SURGERY CARDIOVERSIONS Surgeries: Yes Orthopedic, Prostatectomy Respiratory: Yes Sleep Apnea, COPD Currently Using CPAP: Yes Currently Using BIPAP: No Cardiac: Yes Atrial Fibrillation, Chronic Edema/Swelling, Coronary Artery Disease, Heart Murmur, High Cholesterol, Hypertension, Valvular Heart Disease Neurological: No Genitourinary: Yes Benign Prostatic Hyperpl, Renal Failure Gastrointestinal: Yes Gastroesophageal Reflux Musculoskeletal: Yes (RIGHT HIP SURGERY) Arthritis, Gout Endocrine: No HEENT: Yes Cataract Loss of Vision: Denies Hearing Impairment: Denies, Bilateral Hearing Aide Cancer: Yes Prostate, Lymphoma Did You Recieve Any Treatments: Yes What Type of Treatment Did You: Radiation Psychosocial: No Integumentary: Yes (DERMATITIS ON FACE) Blood Disorders: Yes Adverse Reaction/Blood Tranf: Yes (THINKS HE HAS HAD A RXN, BUT UNSURE WHAT) Reviewed History: Yes Social History Home: Single Level Current Living Status: Spouse Entry Into Home: Ramp Prior Prior Level of Function SCALE: Activities may be completed with or without assistive devices. 9-Xvolscksaz-nunwgzb completes the activity by him/herself with no assistance from a helper. 5-Set-up or Clean-up Assistance-helper sets up or cleans up; patient completes activity. [place] assists only prior to or following the activity. 4-Supervision or Touching Assistance-helper provides verbal cues and/or touching/steadying and/or contact guard assistance as patient completes activity. Assistance may be provided throughout the activity or intermittently. 3-Partial/Moderate Assistance-helper does LESS THAN HALF the effort. [place] lifts, holds or supports trunk or limbs, but provides less than half the effort. 2-Substantial/Maximal Assistance-helper does MORE THAN HALF the effort. [place] lifts or holds trunk or limbs and provides more than half the effort. 0-Gezujkaqr-pxocoa does ALL the effort. Patient does none of the effort to complete the activity. Or, the assistance of 2 or more helpers is required for the patient to complete the activity. If activity was not attempted, code reason: 7-Patient Refused. 9-Not Applicable-not attempted and the patient did not perform the activity before the current illness, exacerbation or injury. 10-Not Attempted due to Environmental Limitations-(lack of equipment, weather restraints, etc.). 88-Not Attempted due to Medical Conditions or Safety Concerns. Bed Mobility: 6 Transfers (B,C,W/C): 6 Gait: 6 Stairs: 6 Indoor Mobility (Ambulation): Independent Stairs: Independent PT Evaluation-Current Subjective Patient in bed pre tx, agrees to PT, has no complaints of pain. Pt/Family Goals to be independent at home Objective Patient Orientation: Person, Place, Situation Attachments: Oxygen ROM/Strength ROM Lower Extremities WNL Strength Lower Extremities grossly 4+/5 BLE Sensory Hearing: Functional Sensation Right Lower Extremit: Intact Sensation Left Lower Extremity: Intact Transfers Roll Left to Right (QC): 6 Lying to Sitting/Side of Bed(Q: 6 Sit to Stand (QC): 6 Chair/Jbb-kj-Guiwh Xfer(QC): 6 Gait Does the Patient Walk?: Yes Mode of Locomotion: Walk Anticipated Mode of Locomotion: Walk Walk 10 feet (QC): 6 Distance: 15' Gait Assistive Device: None Comments/Gait Description Patient ambulates independently without an assistive device. Patient is on 2L of O2, took it off for ambulation to test O2, after ambulating about 15 feet and getting into bedside chair patient's O2 dropped from 94% to 91%, put O2 back on and let nurse know. Balance Sitting Static: Normal Sitting Dynamic: Normal Standing Static: Normal Standing Dynamic: Normal Treatment BLE seated exercises x20 (AP, LAQ) Assessment/Needs Patient in bedside chair post tx with nurse call, phone, tray, all needs met. Patient has impaired strength and endurance. His O2 can drop with activity but is independent with mobility. Rehab Potential: Fair PT Skilled Nursing Goals Research Laboratory Specialist Goals PT Skilled Nursing Goals Time Frame: Mar 21, 2021 Roll Left & Right (QC): 6 Sit to Lying (QC): 6 Lying-Sitting on Side/Bed(QC): 6 Sit to Stand (QC): 6 Chair/Tkn-hx-Nmapc Xfer(QC): 6 Walk 10 feet (QC): 6 Walk 50ft with 2 Turns (QC): 6 PT Plan Problem List Problem List: Activity Tolerance, Functional Strength, Safety, Balance, Gait, Transfer, ROM Treatment/Plan Treatment Plan: Continue Plan of Care Treatment Plan: Education, Functional Activity Lizet, Functional Strength, G ait, Safety, Therapeutic Exercise, Transfers Treatment Duration: Mar 21, 2021 Frequency: 6 times per week Estimated Hrs Per Day: .25 hour per day Patient and/or Family Agrees t: Yes Safety Risks/Education Patient Education: Gait Training, Transfer Techniques, Correct Positioning, Safety Issues Teaching Recipient: Patient Teaching Methods: Demonstration, Discussion Response to Teaching: Reinforcement Needed Discharge Recommendations Plan Patient will perform bed mobility and transfer training, balance and endurance training, functional strengthening, stair training, gait training, and education, to improve functional mobility and independence at home. Therapy Discharge Recommendati: Home & Family Time/GCodes Time In: 08 Time Out: 829 Total Billed Treatment Time: 10 Total Billed Treatment 1 visit EVL LEANNE PIÑA PT Mar 14, 2021 08:58
[2021-03-14] MEDS: SENNOSIDES 8.6 MG (SENOKOT) TAB PO SCH ×2 (09:34→21:38)
[2021-03-14] MEDS: DOCUSATE SODIUM 100 MG (COLACE) CAP PO SCH ×2 (09:34→21:38)
--- NOTE | 2021-03-14 10:00 | Consultation-Cardiology ---
HPI-Cardiology Cardiology Consultation: Date of Consultation 03/14/2021 Date of Admission 03/13/2021 Attending Physician Amina Yeboah MD Admitting Physician Villa Ramirez DO Consulting Physician JUSTO LOPEZ JR, MD HPI: Time Seen by a Provider: 09:55 Chief Complaint: Reason for consultation: Elevated troponin and atrial fibrillation. I had the pleasure of seeing Maurisio on the cardiac stepdown unit at [facility] in [place], [place] this morning. He normally follows with a single pointed operator at [facility] for paroxysmal atrial fibrillation. Yesterday he was having difficulties with his blood pressure going up and down. He also could not get a good pulse on his pulse oximeter. He became concerned and came to the hospital for further evaluation. He was found to be in atrial fibrillation with a rapid ventricular rate and was admitted for further evaluation. He was also found to have an elevated troponin level so a cardiology consultation was requested. He denies any chest discomfort, dyspnea, paroxysmal nocturnal dyspnea, orthopnea, palpitations, lightheadedness, or syncope. He has had mild bilateral lower extremity edema. He also tells me that since being here in the hospital, he has had bright red blood in his urine. However, his nurse tells me that in the emergency room they tried multiple times to put a Marley catheter. Certain portions of this document may have been dictated utilizing voice recognition technology. Inherent to this technology, typographical and grammatical errors may exist. As much as I am diligent to identify and correct these mistakes, some errors may remain in the document. Review of Systems-Cardiology Review of Systems Other comments Review of 10 organ systems is as per the history of present illness, otherwise negative. LZX-Cfuwuz-Ftihug Hx Patient Social History Marrital Status: Smoking Status: Former Smoker 2nd Hand Smoke Exposure: No Have you traveled recently?: No Alcohol Use?: No Pt feels they are or have been: No Immunizations Up To Date Tetanus Booster (TDap): Unknown Date of Pneumonia Vaccine: Nov 17, 2010 Date of Influenza Vaccine: Jan 11, 2021 Past Medical History PMH As described under Assessment. Family Medical History Family History: Cardiovascular disease 19 MOTHER Diabetes mellitus 19 MOTHER FH: prostate cancer G8 BROTHER Myocardial infarction 19 FATHER Allergies and Home Medications Allergies Coded Allergies: vancomycin (Verified Allergy, Severe, 05/28/19) Pt states his face got really red and he went into ER for reaction. gemfibrozil (Verified Allergy, Unknown, 05/27/19) valdecoxib (Verified Allergy, Unknown, 05/27/19) Patient Home Medication List Home Medication List Reviewed: Yes Allopurinol (Allopurinol) 300 Mg Tablet, 300 MG PO HS, (Reported) Entered as Reported by: LISA GEE on 11/22/181320 Apixaban (Eliquis) 2.5 Mg Tablet, 2.5 MG PO BID, (Reported) Entered as Reported by: LISA GEE on 11/22/181320 Atorvastatin Calcium (Atorvastatin Calcium) 40 Mg Tablet, 40 MG PO DAILY, (Reported) Entered as Reported by: LISA GEE on 11/22/181320 Carboxymethylcellulose Sodium (Refresh Tears) 15 Ml Drops, 1 DROP OU BID, (Reported) Entered as Reported by: LISA GEE on 11/22/181320 Carvedilol (Carvedilol) 6.25 Mg Tablet, 6.25 MG PO BID, (Reported) Entered as Reported by: LISA GEE on 11/22/181320 Cholecalciferol (Vitamin D3) (Vitamin D3) 25 Mcg Capsule, 25 MCG PO HS, (Reported) Entered as Reported by: CATHERINE WALKER on 05/18/20 110 Diphenhydramine HCl (Allergy Relief) 25 Mg Capsule, 25 MG PO HS PRN for ALLERGIES, (Reported) Entered as Reported by: LISA GEE on 11/22/181320 Fluticasone Propion/Salmeterol (Fluticasone-Salmeterol 100-50) 1 Each Blst.w.dev, 1 PUFF INH BID, (Reported) Entered as Reported by: CATHERINE WALKER on 05/18/20 1107 Fluticasone Propionate (Flonase Allergy Relief) 9.9 Ml [place].susp, 1 SPRAY NS HS PRN for ALLERGIES, (Reported) Entered as Reported by: LISA GEE on 11/22/181320 Furosemide (Furosemide) 20 Mg Tablet, 20 MG PO DAILY, (Reported) Entered as Reported by: LISA GEE on 11/22/181320 Magnesium Oxide (Magnesium Oxide) 250 Mg Tablet, 250 MG PO DAILY, (Reported) Entered as Reported by: CATHERINE WALKER on 05/18/20 1110 Methotrexate Sodium (Methotrexate) 2.5 Mg Tablet, 10 MG PO THURS, (Reported) Entered as Reported by: LISA GEE on 11/25/18 0830 Roff-3/Dha/Epa/Dpa/Fish Oil (Roff-3 2100 Softgel) 1 Each Capsule, 1 EACH PO HS, (Reported) Entered as Reported by: CATHERINE WALKER on 05/18/20 110 Omeprazole (Omeprazole) 40 Mg Capsule.dr, 40 MG PO DAILY, (Reported) Entered as Reported by: LISA GEE on 11/22/18 132 Pedi Mv No.79/Ferrous Fumarate (Flintstones with Iron Tab Chew) 18 Mg Tab.chew, 18 MG PO HS, (Reported) Entered as Reported by: LISA GEE on 11/22/18 132 Prednisone (Prednisone) 5 Mg Tablet, 5 MG PO DAILY, (Reported) Entered as Reported by: LISA GEE on 11/22/18 132 Tamsulosin HCl (Flomax) 0.4 Mg Cap, 0.4 MG PO DAILY, (Reported) Entered as Reported by: CATHERINE WALKER on 05/18/20 110 Vit C/E/Zn/Coppr/Lutein/Zeaxan (Preservision Areds 2 Softgel) 1 Each Capsule, 1 CAP PO HS, (Reported) Entered as Reported by: LISA GEE on 11/22/18 132 Vitamin B Complex (Super B-50 Complex) 1 Each Capsule, 1 EACH PO DAILY, (Reported) Entered as Reported by: CATHERINE WALKER on 05/18/20 110 Zinc Amino Acid Chelate (Zinc) 50 Mg Tablet, 50 MG PO DAILY, (Reported) Entered as Reported by: LISA GEE on 11/22/18 132 [Jessy's Leg Cramps] , 1 TAB SL HS PRN for CRAMPS, (Reported) Entered as Reported by: LISA GEE on 11/22/18 132 Exam Vital Signs Vital Signs Date Time Temp Pulse Resp B/P (MAP) Pulse Ox O2 Delivery O2 Flow Rate FiO2 03/14/21 09:41 96 Nasal Cannula 2.00 03/14/21 08:00 36.5 80 16 123/78 (93) 03/13/21 21:26 21 Physical Exam General: Alert. No acute distress. Well nourished and appears stated age. He is overweight. Eye: Extraocular movements are intact. Conjunctivae are clear. There are no xanthelasma. HENT: Normocephalic. Atraumatic. Carotid pulsations 2/2 without bruits. Neck: Jugular venous pressure does not appear elevated. No thyromegaly appreciated. Respiratory: Lungs are clear to auscultation. Respirations are non-labored. Breath sounds are equal. Symmetrical chest wall expansion. Cardiovascular: Normal rate. Regular rhythm. 2/6 high-pitched systolic ejection murmur. No gallop. Point of maximal impulse is not appear displaced. Good pulses equal in all extremities. 1+ bilateral pretibial edema. Gastrointestinal: Soft. Normal bowel sounds. Skin: Skin turgor is normal. There is no pallor. Musculoskeletal: No kyphosis or scoliosis appreciated. Neurologic: Alert and oriented to person, place, time. Cranial nerves 3-12 ap pear grossly intact. The patient has good motor tone strength in the upper and lower extremities bilaterally. Psychiatric: Cooperative. Appropriate mood & affect. Labs Laboratory Tests Test 03/13/21 13:25 03/13/21 13:34 03/13/21 19:02 03/14/21 00:55 Range/Units Influenza Type A (RT-PCR) Not Detected Not Detecte Influenza Type B (RT-PCR) Not Detected Not Detecte SARS-CoV-2 RNA (RT-PCR) Not Detected Not Detecte White Blood Count 13.5 H 4.3-11.0 10^3/uL Red Blood Count 4.16 L 4.30-5.52 10^6/uL Hemoglobin 14.6 13.3-17.7 g/dL Hematocrit 44 40-54 % Mean Corpuscular Volume 106 H 80-99 fL Mean Corpuscular Hemoglobin 35 H 25-34 pg Mean Corpuscular Hemoglobin Concent 33 32-36 g/dL Red Cell Distribution Width 14.8 H 10.0-14.5 % Platelet Count 163 130-400 10^3/uL Mean Platelet Volume 10.5 9.0-12.2 fL Immature Granulocyte % (Auto) 1 % Neutrophils (%) (Auto) 71 42-75 % Lymphocytes (%) (Auto) 22 12-44 % Monocytes (%) (Auto) 6 0-12 % Eosinophils (%) (Auto) 1 0-10 % Basophils (%) (Auto) 0 0-10 % Neutrophils # (Auto) 9.5 H 1.8-7.8 10^3/uL Lymphocytes # (Auto) 3.0 1.0-4.0 10^3/uL Monocytes # (Auto) 0.8 0.0-1.0 10^3/uL Eosinophils # (Auto) 0.1 0.0-0.3 10^3/uL Basophils # (Auto) 0.0 0.0-0.1 10^3/uL Immature Granulocyte # (Auto) 0.1 0.0-0.1 10^3/uL Erythrocyte Sedimentation Rate 13 0-30 MM/HR Prothrombin Time 15.1 H 12.2-14.7 SEC INR Comment 1.1 0.8-1.4 Activated Partial Thromboplast Time 29 24-35 SEC Sodium Level 139 135-145 MMOL/L Potassium Level 4.0 3.6-5.0 MMOL/L Chloride Level 107 98-107 MMOL/L Carbon Dioxide Level 20 L 21-32 MMOL/L Anion Gap 12 5-14 MMOL/L Blood Urea Nitrogen 28 H 7-18 MG/DL Creatinine 1.58 H 0.60-1.30 MG/DL Estimat Glomerular Filtration Rate 42 BUN/Creatinine Ratio 18 Glucose Level 141 H 70-105 MG/DL Calcium Level 9.3 8.5-10.1 MG/DL Corrected Calcium 9.5 8.5-10.1 MG/DL Magnesium Level 1.8 1.6-2.4 MG/DL Total Bilirubin 0.8 0.1-1.0 MG/DL Aspartate Amino Transf (AST/SGOT) 34 5-34 U/L Alanine Aminotransferase (ALT/SGPT) 35 0-55 U/L Alkaline Phosphatase 79 40-136 U/L Total Creatine Kinase 173 30-200 U/L Creatine Kinase MB 12.6 *H <6.6 NG/ML Myoglobin 179.5 H 10.0-92.0 NG/ML Troponin I 1.674 *H 2.421 *H 2.957 *H <0.028 NG/ML C-Reactive Protein High Sensitivity 0.35 0.00-0.50 MG/DL B-Type Natriuretic Peptide 1565.5 H <100.0 PG/ML Total Protein 6.7 6.4-8.2 GM/DL Albumin 3.8 3.2-4.5 GM/DL TSH [place] Testing 1.95 0.35-4.94 UIU/ML Test 03/14/21 04:46 Range/Units White Blood Count 11.2 H 4.3-11.0 10^3/uL Red Blood Count 3.67 L 4.30-5.52 10^6/uL Hemoglobin 13.0 L 13.3-17.7 g/dL Hematocrit 39 L 40-54 % Mean Corpuscular Volume 106 H 80-99 fL Mean Corpuscular Hemoglobin 35 H 25-34 pg Mean Corpuscular Hemoglobin Concent 34 32-36 g/dL Red Cell Distribution Width 14.8 H 10.0-14.5 % Platelet Count 145 130-400 10^3/uL Mean Platelet Volume 10.4 9.0-12.2 fL Immature Granulocyte % (Auto) 1 % Neutrophils (%) (Auto) 64 42-75 % Lymphocytes (%) (Auto) 25 12-44 % Monocytes (%) (Auto) 8 0-12 % Eosinophils (%) (Auto) 2 0-10 % Basophils (%) (Auto) 0 0-10 % Neutrophils # (Auto) 7.2 1.8-7.8 10^3/uL Lymphocytes # (Auto) 2.8 1.0-4.0 10^3/uL Monocytes # (Auto) 0.9 0.0-1.0 10^3/uL Eosinophils # (Auto) 0.2 0.0-0.3 10^3/uL Basophils # (Auto) 0.0 0.0-0.1 10^3/uL Immature Granulocyte # (Auto) 0.1 0.0-0.1 10^3/uL Sodium Level 139 135-145 MMOL/L Potassium Level 3.6 3.6-5.0 MMOL/L Chloride Level 104 98-107 MMOL/L Carbon Dioxide Level 23 21-32 MMOL/L Anion Gap 12 5-14 MMOL/L Blood Urea Nitrogen 28 H 7-18 MG/DL Creatinine 1.46 H 0.60-1.30 MG/DL Estimat Glomerular Filtration Rate 46 BUN/Creatinine Ratio 19 Glucose Level 105 70-105 MG/DL Calcium Level 8.6 8.5-10.1 MG/DL Troponin I 3.065 *H <0.028 NG/ML Triglycerides Level 218 H <150 MG/DL Cholesterol Level 110 < 200 MG/DL LDL Cholesterol Direct 48 1-129 MG/DL VLDL Cholesterol 44 H 5-40 MG/DL HDL Cholesterol 30 L 40-60 MG/DL ECG Impression ECG Comment He has had several electrocardiogram showing atrial fibrillation with right bundle branch block and left posterior hemiblock as well as one electrocardiogram that showed an irregular wide-complex tachycardia. This morning he is in sinus rhythm with a right bundle branch block. Diagnosis/Problems Diagnosis/Problems (1) Troponin level elevated Assessment & Plan: This could be a type II non-ST elevation myocardial infarction related to tachycardia that was present at the time of admission. Alternatively, he could be suffering a type I non-ST elevation myocardial infarction. I am considering further evaluation with a cardiac catheterization. However, due to the gross hematuria he has experienced today, this needs to be evaluated before we can safely perform a cardiac catheterization. The hematuria could just be related to trauma from attempts to place a Marley catheter in the emergency room. However, if he has a cardiac catheterization he will require parenteral anticoagulation and this could cause severe bleeding related to the hematuria. (2) Paroxysmal atrial fibrillation Assessment & Plan: He has a history of paroxysmal atrial fibrillation and has been on apixaban for stroke prophylaxis. He appears to be on the reduced dose of apixaban due to age over 80 and creatinine above 1.5. I presently have his apixaban on hold in the event with decide to go ahead with a cardiac catheterization. (3) Aortic stenosis Assessment & Plan: His most recent echocardiogram in our hospital showed mild aortic stenosis. This should not be contributing to his current clinical picture but will need to be followed longitudinally. (4) Primary hypertension Assessment & Plan: I suspect he is getting aberrant readings on his home blood pressure equipment due to the rapid ventricular rate from the atrial fibrillation. He is normotensive today. (5) Mixed hyperlipidemia Assessment & Plan: Resume statin medication. (6) Hematuria Assessment & Plan: I have taken the liberty of consulting urology. Although the hematuria could be related to trauma caused during attempted Marley insertion, I am concerned about giving him anticoagulation if we elect to have him undergo cardiac catheterization. JUSTO LOPEZ JR, MD Mar 14, 2021 10:00
[2021-03-14] MEDS ORDERED: LIDOCAINE UROJET 2% GEL 10 ML PKG ONE (10:48)
--- NOTE | 2021-03-14 11:11 | Progress Note-Pre Operative ---
Pre-Operative Progress Note H&P Reviewed The H&P was reviewed, patient examined and no changes noted. Date Seen by Provider: Mar 14, 2021 Time Seen by Provider: 11:11 Date H&P Reviewed: Mar 14, 2021 Time H&P Reviewed: 11:11 Pre-Operative Diagnosis: GROSS HEMATURIA STEVEN MCDANIEL MD Mar 14, 2021 11:11
[2021-03-14] MEDS ORDERED: IRON150C3 PO (11:17)
[2021-03-14] MEDS ORDERED: VIT1CAPS44 PO (11:17)
[2021-03-14] MEDS ORDERED: CARB15DR OD (11:17)
[2021-03-14 11:49] VITALS: BP 110/75
--- NOTE | 2021-03-14 12:17 | Progress Note-Post Operative ---
Post-Operative Progess Note Surgeon (s)/Tile Ditcher (s) Surgeon STEVEN MCDANIEL MD Tile Ditcher: NONE Pre-Operative Diagnosis GROSS HEMATURIA Post-Operative Diagnosis SAME AND [facility] Procedure & Operative Findings Date of Procedure 03/14/21 Procedure Performed/Findings CYSTOSCOPY Anesthesia Type LOCAL Estimated Blood Loss Estimated blood loss (mL): NONE Specimens/Packing Specimens Removed NONE Packing: NONE STEVEN MCDANIEL MD Mar 14, 2021 12:17
[2021-03-14] MEDS ORDERED: MIDAZOLAM 5 MG/5 ML (VERSED) VIAL IJ ONE (12:19)
[2021-03-14] MEDS ORDERED: fentaNYL INJ 100 MCG/2 ML AMP IV ONE (12:19)
[2021-03-14] MEDS ORDERED: NS IV 1000 ML 1,000 ML IV ONE (12:45)
[2021-03-14] MEDS ORDERED: CATHETER FLUSH 10 ML SYR IV PRN (12:45)
--- NOTE | 2021-03-14 13:44 | CONSULTATION REPORT ---
DATE OF SERVICE: 03/14/2021 ATTENDING PHYSICIAN: Dr. Bledsoe. SUMMARY: After reviewing the patient's record, the history and physical, the consultation of Dr. Bledsoe and interviewing him, this is an 85-year-old white man, who was admitted with shortness of breath, elevated cardiac enzymes, possible MD, although no symptoms, attempted insertion of a catheter was unsuccessful causing some gross hematuria. The patient is able to void on his own, but still having hematuria. He had a history of cancer of the prostate, which was surgically removed [address] Salinas at [facility]. 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 The patient does not describe any voiding symptoms at home and able to void on his own then and now. Dr. Bledsoe is planning a cardiac catheterization, but will need heparin at that time and if he put a stent, he will need blood thinners on the patient. IMPRESSION: Gross hematuria. PLAN: I had a long discussion with the patient and his family regarding plan. We will do a cystoscopy at bedside today and decide accordingly depending on the findings at that time. Procedure was fully explained to the patient as well as his family including the future plans. CC: Dr. Bledsoe -- requested, unable to deliver. Job ID: [id number] DocumentID: [id number] Dictated Date: 03/14/2021 11:16:33 Research Fellow Date: 03/14/2021 13:44:04 Dictated By: STEVEN MCDANIEL MD
[2021-03-14] MEDS ORDERED: VERAPAMIL 5 MG/2 ML (CALAN) VIAL IV ONE (14:42)
[2021-03-14] MEDS ORDERED: MIDAZOLAM 5 MG/5 ML (VERSED) VIAL ONE (14:42)
[2021-03-14] MEDS ORDERED: fentaNYL INJ 100 MCG/2 ML AMP ONE (14:42)
[2021-03-14] MEDS ORDERED: NITRO DRIP 25000 MCG/D5W 250 ML IV ONE (14:43)
[2021-03-14] MEDS ORDERED: NS IV 1000 ML 1,000 ML ONE (14:43)
[2021-03-14] MEDS ORDERED: HEParin 1000 UNIT/ML (10ML VIAL) FOR BOLUS ONE (14:43)
[2021-03-14] MEDS ORDERED: LIDOCAINE 1% INJ 20 ML VIAL ONE (14:43)
[2021-03-14] MEDS ORDERED: HEParin (CATH LAB) 2,000 ML IV ONE (14:48)
--- NOTE | 2021-03-14 15:43 | Pre-Op Note & Conscious Sedat ---
Pre-Operative Progress Note H&P Reviewed The H&P was reviewed, patient examined and no changes noted. Date H&P Reviewed: Mar 14, 2021 Time H&P Reviewed: 15:43 Pre-Op Diagnosis: Possible non-ST elevation myocardial infarction Conscious Sedation Pre-Proced Time 11:11 ASA Score 3 For ASA 3 and 4: Consider anesthesia and medical clearance. Also, for patients with a history of failed moderate sedation consider anesthesia. Airway Lungs Heart ASA score ASA 1: a normal healthy patient ASA 2: a patient with a mild systemic disease (mid diabetes, controlled hypertension, obesity ASA 3: a patient with a severe systemic disease that limits activity (angina, COPD, prior Myocardial infarction) ASA 4: a patient with an incapacitating disease that is a constant threat to life (CHF, renal failure) ASA 5: a moribund patient not expected to survive 24 hrs. (ruptured aneurysm) ASA 6: a declared brain- patient whose organs are being harvested. For emergent operations, add the letter E after the classification Mallampati Classification Grade 2 Sedation Plan Analgesia, Amnesia, Plan communicated to team members, Discussed options with patient/fam, Discussed risks with patient/fam The patient is an appropriate candidate to undergo the planned procedure, sedation, and anesthesia. The patient immediately re-assessed prior to indication. JUSTO LOPEZ JR, MD Mar 14, 2021 15:43
[2021-03-14] MEDS ORDERED: PATIENT MAY USE OWN MEDS, ALL PO SCH (16:15)
--- NOTE | 2021-03-14 16:24 | Cardiac Cath Report ---
CARDIAC CATHETERIZATION DATE OF PROCEDURE: 03/14/2021 INDICATION: Abnormal troponin level. HISTORY: The patient is a 85 year old male with no known history of coronary artery disease who does have a history of paroxysmal atrial fibrillation. He presented to the hospital with chest discomfort and dyspnea. He was found to be in atrial fibrillation with a rapid ventricular rate. He was admitted to the hospital for further evaluation. During his evaluation, he was found to have elevated troponin levels consistent with a possible non-ST elevation myocardial infarction. As such, he is now referred for further evaluation with a cardiac catheterization. PROCEDURES PERFORMED: 1. Left heart catheterization with hemodynamic measurements. 2. Diagnostic [place] coronary angiography. PROCEDURE DESCRIPTION: After informed consent and in the fasting state, left heart catheterization was performed through the right radial artery utilizing a 6 Norwegian system by percutaneous approach. A 5 Norwegian JR4 catheter was utilized to interrogate the right coronary artery and the left ventricle and a 5 Norwegian JL 3.5 catheter was utilized to interrogate the left coronary artery. All catheters were exchanged over a guidewire. Following the procedure, a vascular band was applied to the radial artery access site and the sheath was removed with good hemostasis. RESULTS: HEMODYNAMICS: The aortic pressure was 114/57 mmHg. The left ventricular pressure was 146/0 mmHg with a left ventricular end-diastolic pressure of 10 mmHg. There was approximately a 20 mmHg pressure gradient upon pullback across aortic valve. CORONARY ANGIOGRAPHY: Left main coronary artery: Free of significant disease. Left anterior descending coronary artery: Free of significant disease. Left circumflex coronary artery: Free of significant disease. Ramus intermedius: There was a ramus intermedius branch versus a very high obtuse marginal branch which was free of significant disease. Right coronary artery: Dominant and free of significant disease. IMPRESSION: 1. Normal left heart pressures with approximately a 20 mmHg pressure gradient upon pullback across the aortic valve which is consistent with the aortic stenosis the patient is known to have by echocardiogram. 2. Angiographically normal-appearing coronary arteries in a right dominant system. 3. The patient is known to have normal left ventricular systolic function with an estimated ejection fraction of 55-60% by echocardiogram performed earlier today. 5. In light of these findings, the patient may have had a type II non-ST elevation myocardial infarction related to supply/demand mismatch from the extreme tachycardia that occurred last evening when he was in atrial fibrillation. Certain portions of this document may have been dictated utilizing voice recognition technology. Inherent to this technology, typographical and grammatical errors may exist. As much as I am diligent to identify and correct these mistakes, some errors may remain in the document. JUSTO LOPEZ JR, MD Mar 14, 2021 16:24
[2021-03-14] MEDS: NS IV 1000 ML 1,000 ML IV SCH (18:05)
--- NOTE | 2021-03-14 19:31 | History & Physical-Hospitalist ---
History of Present Illness HPI/Chief Complaint Maurisio Edmondson is an 85 year old male with PMH HTN, HLD, CKD 3a, BPH, gout, COPD, JULIEN, CAD, AFib, who presented with fast heart rate. He has a blood pressure monitor at home and noticed that his heart rate was very high. He denies palpitaitons. He reports feeling pressure in his ears. He denies chest pain. He is not short of breath. He denies cough. He denies fever. He has no other complaints or concern. He has been taking his medications as prescribed. He has been having hematuria since a lam was attempted in the ER. Source: patient Exam Limitations: no limitations Date Seen 03/14/21 Time Seen by a Provider: 09:30 Attending Physician Lalitha Jack MD PCP Villa Ramirez DO Referring Physician Date of Admission Mar 13, 2021 at 15:36 Home Medications & Allergies Home Medications Reviewed patient Home Medication Reconciliation performed by pharmacy medication reconciliations nuclear chemistry technician and/or nursing. Patients Allergies have been reviewed. Allergies Allergies Coded Allergies vancomycin (Verified Allergy, Severe, 05/28/19) Pt states his face got really red and he went into ER for reaction. gemfibrozil (Verified Allergy, Unknown, 05/27/19) valdecoxib (Verified Allergy, Unknown, 05/27/19) Past Nzifbjg-Uvaawg-Snnfkk Hx Patient Social History Marrital Status: Tobacco Use?: No Smoking Status: Former Smoker Smokeless Tobacco Frequency: Former User Use of E-Cig and/or Vaping dev: No Substance use?: No Alcohol Use?: No Pt feels they are or have been: No Immunizations Up To Date Date of Influenza Vaccine: Jan 11, 2021 First/Initial COVID19 Vaccinat: MAY 2020 Second COVID19 Vaccination Adalid: JUNE 2020 Tetanus Booster (TDap): More Than 5 Years Hepatitis A: No Hepatitis B: No Date of Pneumonia Vaccine: Nov 17, 2010 Seasonal Allergies Seasonal Allergies: Yes Current Status Advance Directives: Yes Advance Directive Location: Home Communicates: Verbally Primary Language: Namibian Preferred Spoken Language: Namibian Is interpretation needed?: No Sensory deficits: Hearing impairment Past Medical History Surgeries: Orthopedic, Prostatectomy Sleep Apnea, COPD Currently Using CPAP: Yes Currently Using BIPAP: No Atrial Fibrillation, Chronic Edema/Swelling, Coronary Artery Disease, Heart Murmur, High Cholesterol, Hypertension, Valvular Heart Disease Benign Prostatic Hyperpl, Renal Failure Gastroesophageal Reflux Arthritis, Gout Cataract Loss of Vision: Denies Hearing Impairment: Denies, Bilateral Hearing Aide Prostate, Lymphoma Did You Recieve Any Treatments: Yes What Type of Treatment Did You: Radiation Blood Disorders: Yes Adverse Reaction/Blood Tranf: Yes (THINKS HE HAS HAD A RXN, BUT UNSURE WHAT) Family Medical History Cardiovascular disease 19 MOTHER Diabetes mellitus 19 MOTHER FH: prostate cancer G8 BROTHER Myocardial infarction 19 FATHER No Pertinent Family Hx Review of Systems Constitutional: no symptoms reported EENTM: ear pain Respiratory: no symptoms reported Cardiovascular: no symptoms reported Gastrointestinal: no symptoms reported Genitourinary: hematuria Musculoskeletal: no symptoms reported Skin: no symptoms reported Psychiatric/Neurological: No Symptoms Reported Physical Exam Physical Exam Vital Signs Vital Signs - First Documented 03/13/21 03/13/21 13:13 21:26 Temp 36.4 Pulse 140 Resp 20 B/P (MAP) 92/79 (83) Pulse Ox 99 O2 Delivery Room Air O2 Flow Rate 2.00 FiO2 21 Capillary Refill : Less Than 3 Seconds Height, Weight, BMI Height: 5'6.00" Weight: 173lbs. 6.4oz. [id number]; 27.44 BMI Method: General Appearance: No Apparent Distress, WD/WN HEENT: PERRL/EOMI, Pharynx Normal Neck: Normal Inspection, Supple Respiratory: Lungs Clear, Normal Breath Sounds, No Respiratory Distress Cardiovascular: Regular Rate, Rhythm, No Edema, Systolic Murmur Gastrointestinal: Normal Bowel Sounds, Non Tender, Soft Extremity: Normal Inspection, Non Tender, No Pedal Edema Neurologic/Psychiatric: Alert, Oriented x3, No Motor/Sensory Deficits, Normal Mood/Affect Skin: Normal Color, Warm/Dry Results Results/Procedures Labs Laboratory Tests 03/13/21 13:34 03/14/21 04:46 Patient resulted labs reviewed. Imaging: Reviewed Imaging Report Assessment/Plan Admission Diagnosis AFib with RVR Admission Status: Inpatient Order (span 2 midnights) Reason for Inpatient Admission: Cardiology evaluation Assessment and Plan AFib with RVR NSTEMI Cardioverted in ER Remains in normal sinus rhythm Continue Coreg Lovenox Troponin elevated, trending up Left heart cath today Gross hematuria Likely due to traumatic lam Urology consulted HTN HLD CKD 3a BPH Gout GERD COPD JULIEN Diagnosis/Problems Diagnosis/Problems (1) Atrial fibrillation with rapid ventricular response Status: Acute (2) NSTEMI (non-ST elevated myocardial infarction) Status: Acute (3) Gross hematuria Status: Acute LALITHA JACK MD Mar 14, 2021 19:30
[2021-03-14 20:00] VITALS: BP 123/71
[2021-03-14] MEDS: APIXABAN 2.5 MG (ELIQUIS) TABLET PO SCH (20:57)
--- NOTE | 2021-03-14 21:21 | CONSULTATION REPORT ---
DATE OF SERVICE: 03/14/2021 ATTENDING PHYSICIAN: Dr. Solorzano. SUMMARY: An 85-year-old white man admitted to the step-down unit with shortness of breath, elevated cardiac enzymes and plan to perform a cardiac catheterization was undertaken; however, attempt to insert a [place] catheter was unsuccessful causing urethral bleeding and possibly trauma. The patient has history of cancer of the prostate treated with a radical prostatectomy by Dr. Salinas over 20 years ago. He said he has not been having any trouble passing urine at home. Three years ago, he was admitted to a hospital attempt to insert a catheter, was unsuccessful and urologist apparently did dilatation and insertion of the catheter and no treatment since. I reviewed his chart and his history and physical. IMPRESSION: Gross hematuria, possible bladder neck contraction with history of CA of the prostate and radical prostatectomy. PLAN: Flexible cystoscopy at bedside under local today, so Dr. Solorzano can decide on proceeding with the cardiac catheterization and possible stenting. CC: Dr. Solorzano -- requested, unable to deliver. Job ID: [id number] DocumentID: [id number] Dictated Date: 03/14/2021 17:49:47 Prison Keeper Date: 03/14/2021 21:19:47 Dictated By: STEVEN MCDANIEL MD
--- NOTE | 2021-03-14 23:26 | OPERATIVE REPORT ---
DATE OF SERVICE: 03/14/2021 PREOPERATIVE DIAGNOSES: Gross hematuria, possible bladder neck contracture and history of CA of the prostate. POSTOPERATIVE DIAGNOSES: Gross hematuria, bladder neck contracture and history of CA of the prostate. SURGERY PERFORMED: Cystoscopy. SURGEON: Scotty Mcdaniel MD. ANESTHESIA: Local. COMPLICATIONS: None. DESCRIPTION OF PROCEDURE: With the patient supine in his bed, genitalia were prepped and draped in the usual sterile fashion. Urethra was infiltrated with 2% lidocaine jelly. Penile clamp was applied. This was then removed, and a flexible cystoscope was introduced under vision. Anterior urethra was normal. The sphincter was normal. 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 Cystoscopy was confirmed in an antegrade fashion and the cystoscope was removed. No active bleeding was observed from the urethra or coming from the bladder through the bladder neck. The patient tolerated the procedure and anesthesia well and remained in his bed in stable condition. I told Dr. Solorzano he could proceed with cardiac catheterization, hopefully want to have to put a stent, so the patient would not have to go on blood thinners, so he will proceed with that probably today and manage accordingly. This was fully explained to the patient and his family. CC: Dr. Solorzano - requested, unable to deliver Job ID: [id number] DocumentID: [id number] Dictated Date: 03/14/2021 17:51:58 Business Architect Date: 03/14/2021 23:25:16 Dictated By: SCOTTY MCDANIEL MD
[2021-03-15 00:15] VITALS: BP 122/72
[2021-03-15] MEDS: NS IV 1000 ML 1,000 ML IV SCH (00:39)
[2021-03-15 02:12] LABS: BILIRUBIN,URINE NEGATIVE (NEGATIVE); CLARITY,URINE CLEAR; COLOR,URINE YELLOW; GLUCOSE, URINE (UA) NEGATIVE (NEGATIVE); KETONES,URINE TRACE (NEGATIVE); LEUKOCYTE ESTERASE ,URINE NEGATIVE (NEGATIVE); NITRITE,URINE NEGATIVE (NEGATIVE); PH,URINE 6.5 (5-9); PROTEIN,URINE NEGATIVE (NEGATIVE)
[2021-03-15] MEDS: RT-ALBUTEROL/IPRATROPIUM 3 ML (DUONEB) VIAL INH SCH ×3 (02:14→11:17)
[2021-03-15 03:06] LABS: BACTERIA,URINE NEGATIVE /HPF; RBC,URINE 25-50 /HPF; SQUAMOUS EPITHELIAL CELL,UR 0-2 /HPF
[2021-03-15 04:00] VITALS: BP 119/69
[2021-03-15] MEDS: predniSONE 5 MG TAB PO SCH (05:27)
[2021-03-15] MEDS: PANTOPRAZOLE 40 MG (PROTONIX) TAB PO SCH (05:27)
[2021-03-15 05:56] LABS: BASOPHILS % (AUTO) 0 % (0-10); EOSINOPHILS # (AUTO) 0.1 10^3/uL (0.0-0.3); EOSINOPHILS % (AUTO) 1 % (0-10); HEMATOCRIT 38 % (40-54); HEMOGLOBIN 12.7 g/dL (13.3-17.7); LYMPHOCYTES # (AUTO) 2.3 10^3/uL (1.0-4.0); LYMPHOCYTES % (AUTO) 22 % (12-44); MEAN CORPUSCULAR HEMOGLOBIN 35 pg (25-34); MEAN CORPUSCULAR HGB CONC 34 g/dL (32-36); MEAN CORPUSCULAR VOLUME 104 fL (80-99); MEAN PLATELET VOLUME 10.8 fL (9.0-12.2); MONOCYTES % (AUTO) 9 % (0-12); NEUTROPHILS # (AUTO) 7.2 10^3/uL (1.8-7.8); NEUTROPHILS % (AUTO) 68 % (42-75); PLATELET COUNT 147 10^3/uL (130-400); WHITE BLOOD COUNT 10.6 10^3/uL (4.3-11.0)
[2021-03-15 06:16] LABS: POTASSIUM 3.6 MMOL/L (3.6-5.0)
[2021-03-15 06:17] LABS: CALCIUM 8.4 MG/DL (8.5-10.1)
[2021-03-15 06:22] LABS: CREATININE SERUM 1.25 MG/DL (0.60-1.30)
[2021-03-15 08:00] VITALS: BP 118/76
[2021-03-15] MEDS: ASPIRIN 81 MG CHEW (CHILDREN'S ASA) PO SCH (08:31)
[2021-03-15] MEDS: APIXABAN 2.5 MG (ELIQUIS) TABLET PO SCH (08:31)
[2021-03-15] MEDS: SENNOSIDES 8.6 MG (SENOKOT) TAB PO SCH (08:31)
[2021-03-15] MEDS: DOCUSATE SODIUM 100 MG (COLACE) CAP PO SCH (08:31)
--- NOTE | 2021-03-15 09:01 | Cardiology Progress Note ---
Progress Note-Cardiology Events since last exam Date Seen by Provider: Mar 15, 2021 Time Seen by Provider: 08:58 Events since last exam I am following him due to atrial fibrillation and elevated troponin level. He is back in sinus rhythm. He feels much better today. He would like to go home. He denies chest discomfort, dyspnea, palpitations, syncope, or ankle edema. Certain portions of this document may have been dictated utilizing voice recognition technology. Inherent to this technology, typographical and grammatical errors may exist. As much as I am diligent to identify and correct these mistakes, some errors may remain in the document. Vitals Last set of Vitals Signs Vital Signs 03/13/21 03/15/21 03/15/21 21:26 07:54 08:00 Temp 36.4 Pulse 77 Resp 16 B/P (MAP) 118/76 (90) Pulse Ox 94 O2 Delivery Nasal Cannula O2 Flow Rate 2.00 FiO2 21 Labs Labs Laboratory Tests 03/15/21 05:17 Exam Vital Signs Vital Signs Date Time Temp Pulse Resp B/P (MAP) Pulse Ox O2 Delivery O2 Flow Rate FiO2 03/15/21 08:00 36.4 77 16 118/76 (90) 94 03/15/21 07:54 Nasal Cannula 2.00 03/13/21 21:26 21 Physical Exam General: Alert. No acute distress. Eye: No xanthelasma. HENT: Normocephalic. Neck: Jugular venous pressure does not appear elevated. Respiratory: Lungs are clear to auscultation. Respirations are non-labored. Breath sounds are equal. Symmetrical chest wall expansion. Cardiovascular: Normal rate. Regular rhythm. 2/6 systolic ejection murmur. No gallop. No edema. Gastrointestinal: Soft. Normal bowel sounds. Skin: Warm. Dry. Neurologic: Alert and oriented to person, place, time. Cranial nerves 3-11 grossly intact. Psychiatric: Cooperative. Appropriate mood & affect. Labs Laboratory Tests Test 03/15/21 01:40 03/15/21 05:17 Range/Units Urine Color YELLOW Urine Clarity CLEAR Urine pH 6.5 5-9 Urine Specific [place] 1.010 L 1.016-1.022 Urine Protein NEGATIVE NEGATIVE Urine Glucose (UA) NEGATIVE NEGATIVE Urine Ketones TRACE H NEGATIVE Urine Nitrite NEGATIVE NEGATIVE Urine Bilirubin NEGATIVE NEGATIVE Urine Urobilinogen 1.0 < = 1.0 MG/DL Urine Leukocyte Esterase NEGATIVE NEGATIVE Urine RBC (Auto) 3+ H NEGATIVE Urine RBC 25-50 H /HPF Urine WBC NONE /HPF Urine Squamous Epithelial Cells 0-2 /HPF Urine Crystals NONE /LPF Urine Bacteria NEGATIVE /HPF Urine Casts NONE /LPF Urine Mucus SMALL H /LPF Urine Culture Indicated NO White Blood Count 10.6 4.3-11.0 10^3/uL Red Blood Count 3.60 L 4.30-5.52 10^6/uL Hemoglobin 12.7 L 13.3-17.7 g/dL Hematocrit 38 L 40-54 % Mean Corpuscular Volume 104 H 80-99 fL Mean Corpuscular Hemoglobin 35 H 25-34 pg Mean Corpuscular Hemoglobin Concent 34 32-36 g/dL Red Cell Distribution Width 14.8 H 10.0-14.5 % Platelet Count 147 130-400 10^3/uL Mean Platelet Volume 10.8 9.0-12.2 fL Immature Granulocyte % (Auto) 1 % Neutrophils (%) (Auto) 68 42-75 % Lymphocytes (%) (Auto) 22 12-44 % Monocytes (%) (Auto) 9 0-12 % Eosinophils (%) (Auto) 1 0-10 % Basophils (%) (Auto) 0 0-10 % Neutrophils # (Auto) 7.2 1.8-7.8 10^3/uL Lymphocytes # (Auto) 2.3 1.0-4.0 10^3/uL Monocytes # (Auto) 1.0 0.0-1.0 10^3/uL Eosinophils # (Auto) 0.1 0.0-0.3 10^3/uL Basophils # (Auto) 0.0 0.0-0.1 10^3/uL Immature Granulocyte # (Auto) 0.1 0.0-0.1 10^3/uL Sodium Level 138 135-145 MMOL/L Potassium Level 3.6 3.6-5.0 MMOL/L Chloride Level 106 98-107 MMOL/L Carbon Dioxide Level 19 L 21-32 MMOL/L Anion Gap 13 5-14 MMOL/L Blood Urea Nitrogen 29 H 7-18 MG/DL Creatinine 1.25 0.60-1.30 MG/DL Estimat Glomerular Filtration Rate 55 BUN/Creatinine Ratio 23 Glucose Level 116 H 70-105 MG/DL Calcium Level 8.4 L 8.5-10.1 MG/DL Diagnosis/Problems Diagnosis/Problems (1) Troponin level elevated Assessment & Plan: This was probably a type II non-ST elevation myocardial infarction related to tachycardia that was present at the time of admission. He underwent a cardiac catheterization that did not demonstrate any significant coronary artery disease. He has received 2 doses of aspirin. I will stop the aspirin since he takes apixaban for atrial fibrillation. This will help reduce the risk of hemorrhagic side effects from dual pathway inhibition. From a cardiac standpoint, he can be discharged home once his other noncardiac issues have improved. (2) Paroxysmal atrial fibrillation Assessment & Plan: He has a history of paroxysmal atrial fibrillation and has been on apixaban for stroke prophylaxis. He appears to be on the reduced dose of apixaban due to age over 80 and creatinine above 1.5. His apixaban can be resumed at this time. He is back in sinus rhythm this morning. He should continue on beta-aydin for rate control in the event he has recurrent atrial fibrillation. He is thinking he would prefer to follow-up with me as opposed to the long drive down to [place] where he was previously seeing Dr. Vera. (3) Aortic stenosis Assessment & Plan: His echocardiogram from this admission showed moderate aortic stenosis. This should not be contributing to his current clinical picture but will need to be followed longitudinally. (4) Primary hypertension Assessment & Plan: Blood pressure is well controlled with the present me dication. These should be continued at the time of discharge. (5) Mixed hyperlipidemia Assessment & Plan: Continue statin medication. (6) Hematuria Assessment & Plan: He was seen by Dr. Arroyo who did a bedside cystoscopy. He has a urethral obstruction that will need to be addressed as an outpatient. The patient has a urologist in [place]. JUSTO LOPEZ JR, MD Mar 15, 2021 09:01
--- NOTE | 2021-03-15 10:08 | Physical Therapy Daily Note ---
PT Daily Note-Current Subjective Patient agrees to PT. Mental Status Patient Orientation: Person, Time, Situation Attachments: Oxygen (per RN HS only) Transfers SCALE: Activities may be completed with or without assistive devices. 7-Uibyvrbsrw-awtcakk completes the activity by him/herself with no assistance from a helper. 5-Set-up or Clean-up Assistance-helper sets up or cleans up; patient completes activity. [place] assists only prior to or following the activity. 4-Supervision or Touching Assistance-helper provides verbal cues and/or touching/steadying and/or contact guard assistance as patient completes activity. Assistance may be provided throughout the activity or intermittently. 3-Partial/Moderate Assistance-helper does LESS THAN HALF the effort. [place] lifts, holds or supports trunk or limbs, but provides less than half the effort. 2-Substantial/Maximal Assistance-helper does MORE THAN HALF the effort. [place] lifts or holds trunk or limbs and provides more than half the effort. 4-Fyvogemwz-klkbha does ALL the effort. Patient does none of the effort to complete the activity. Or, the assistance of 2 or more helpers is required for the patient to complete the activity. If activity was not attempted, code reason: 7-Patient Refused. 9-Not Applicable-not attempted and the patient did not perform the activity before the current illness, exacerbation or injury. 10-Not Attempted due to Environmental Limitations-(lack of equipment, weather restraints, etc.). 88-Not Attempted due to Medical Conditions or Safety Concerns. Lying to Sitting/Side of Bed(Q: 6 Sit to Stand (QC): 6 Chair/Hfs-no-Kwuyl Xfer(QC): 6 Gait Training Distance: 500' Walk 10 feet (QC): 6 Walk 50 ft with 2 Turns(QC): 6 Walk 150 ft (QC): 6 Gait Assistive Device: None safe and functional with no deviation (SAO2 94% RA with activity and RN notified) Assessment Current Status: Excellent Progress Patient is currently at independent PLOF with all gross motor skills. PT to dismiss patient from services at this time. PT Longterm Goals Honing Machine Operator Semiautomatic Goals PT Longterm Goals Time Frame: Mar 21, 2021 Roll Left & Right (QC): 6 Sit to Lying (QC): 6 Lying-Sitting on Side/Bed(QC): 6 Sit to Stand (QC): 6 Chair/Cpa-sm-Cdwkn Xfer(QC): 6 Walk 10 feet (QC): 6 Walk 50ft with 2 Turns (QC): 6 PT Plan Treatment/Plan Treatment Plan: Discontinue PT, goals met Treatment Plan: Education, Functional Activity Liz[place], Functional Strength, Gait, Safety, Therapeutic Exercise, Transfers Treatment Duration: Mar 21, 2021 Frequency: 6 times per week Estimated Hrs Per Day: .25 hour per day Patient and/or Family Agrees t: Yes Time/GCodes Time In: 755 Time Out: 811 Total Billed Treatment Time: 16 Total Billed Treatment 1 visit FA 16 min DEJAH MEDINA PT Mar 15, 2021 10:08
--- NOTE | 2021-03-15 10:49 | Progress Note - Urology ---
Progress Note-Urology Progress Notes/Assess & Plan Progress/Assessment & Plan VOIDING WELL. NO HEMATURIA. OK TO DISCHARGE [place]. NEEDS TO FOLLOW UP WITH HIS UROLOGIST DR PHIPPS TO TREAT BLADDER NECK CONTRACTURE Final Diagnosis GROSS HEMATURIA AND BNC STEVEN MCDANIEL MD Mar 15, 2021 10:49
--- NOTE | 2021-03-15 22:06 | Discharge Summary ---
Discharge Summary Hospital Course Problems/Dx: (1) Troponin level elevated (2) Paroxysmal atrial fibrillation (3) Aortic stenosis (4) Primary hypertension (5) Mixed hyperlipidemia (6) Hematuria Hospital Course Date of Admission: Mar 13, 2021 at 15:36 Admission Diagnosis : AFib with RVR, NSTEMI Family Physician/Provider: Villa Ramirez DO Date of Discharge: 03/15/21 Discharge Diagnosis: AFib wtih RVR, NSTEMI, gross hematuria Hospital Course: Maurisio Edmondson is an 85 year old male who was admitted with AFib with RVR. He was cardioverted in the ER due to hemodynamic instability. Cardiology was consulted and assisted with his care. He remained in normal sinus rhythm. His course was complicated by NSTEMI. He underwent a left heart catheterization which required no intervention. He also had gross hematuria after a lam insertion was attempted. He has a history of prostatectomy. He underwent a cystoscopy with Urology which showed urethral stricture but was otherwise normal. He was discharged home in stable condition. Labs and Pending Lab Test: Laboratory Tests 03/15/21 01:40: Urine Color YELLOW, Urine Clarity CLEAR, Urine pH 6.5, Urine Specific [place] 1.010L, Urine Protein NEGATIVE, Urine Glucose (UA) NEGATIVE, Urine Ketones TRACEH, Urine Nitrite NEGATIVE, Urine Bilirubin NEGATIVE, Urine Urobilinogen 1.0, Urine Leukocyte Esterase NEGATIVE, Urine RBC (Auto) 3+H, Urine RBC 25-50H, Urine WBC NONE, Urine Squamous Epithelial Cells 0-2, Urine Crystals NONE, Urine Bacteria NEGATIVE, Urine Casts NONE, Urine Mucus SMALLH, Urine Culture Indicated NO 03/15/21 05:17: White Blood Count 10.6, Red Blood Count 3.60L, Hemoglobin 12.7L, Hematocrit 38L, Mean Corpuscular Volume 104H, Mean Corpuscular Hemoglobin 35H, Mean Corpuscular Hemoglobin Concent 34, Red Cell Distribution Width 14.8H, Platelet Count 147, Mean Platelet Volume 10.8, Immature Granulocyte % (Auto) 1, Neutrophils (%) (Auto) 68, Lymphocytes (%) (Auto) 22, Monocytes (%) (Auto) 9, Eosinophils (%) (Auto) 1, Basophils (%) (Auto) 0, Neutrophils # (Auto) 7.2, Lymphocytes # (Auto) 2.3, Monocytes # (Auto) 1.0, Eosinophils # (Auto) 0.1, Basophils # (Auto) 0.0, Immature Granulocyte # (Auto) 0.1, Sodium Level 138, Potassium Level 3.6, Chloride Level 106, Carbon Dioxide Level 19L, Anion Gap 13, Blood Urea Nitrogen 29H, Creatinine 1.25, Estimat Glomerular Filtration Rate 55, BUN/Creatinine Ratio 23, Glucose Level 116H, Calcium Level 8.4L Microbiology 03/14/21 MRSA Screen - Final, Complete MRSA not isolated Home Meds Active Reported Refresh Tears (Carboxymethylcellulose Sodium) 15 Ml Drops 1 Drop OD BID Preservision Areds 2 Softgel (Vit C/E/Zn/Coppr/Lutein/Zeaxan) 1 Each Capsule 1 Each PO HS Ferrex 150 (Iron Polysaccharide Complex) 150 Mg Capsule 150 Mg PO HS Magnesium Oxide 250 Mg Tablet 250 Mg PO DAILY Fluticasone-Salmeterol 100-50 (Fluticasone Propion/Salmeterol) 1 Each Blst.w.dev 1 Puff INH BID Flomax (Tamsulosin HCl) 0.4 Mg Cap 0.4 Mg PO DAILY Vitamin D3 (Cholecalciferol (Vitamin D3)) 25 Mcg Capsule 25 Mcg PO HS [place]-3 2100 Softgel ([place]-3/Dha/Epa/Dpa/Fish Oil) 1 Each Capsule 1 Each PO HS Methotrexate (Methotrexate Sodium) 2.5 Mg Tablet 10 Mg PO THURS TAKES 4 (2.5MG) TABLETS [place] with Iron Tab Chew (Pedi Mv No.79/Ferrous Fumarate) 18 Mg Tab.chew 18 Mg PO HS Atorvastatin Calcium 40 Mg Tablet 40 Mg PO DAILY Allopurinol 300 Mg Tablet 300 Mg PO DAILY Allergy Relief (Diphenhydramine HCl) 25 Mg Capsule 25 Mg PO HS PRN Carvedilol 6.25 Mg Tablet 6.25 Mg PO BID Omeprazole 40 Mg Capsule.dr 40 Mg PO DAILY Eliquis (Apixaban) 2.5 Mg Tablet 2.5 Mg PO BID Zinc (Zinc Amino Acid Chelate) 50 Mg Tablet 50 Mg PO DAILY Flonase Allergy Relief (Fluticasone Propionate) 9.9 Ml [place].susp 1 [place] NS HS PRN Prednisone 5 Mg Tablet 5 Mg PO DAILY Furosemide 20 Mg Tablet 20 Mg PO DAILY [Jessy's Leg Cramps] 1 Tab SL HS PRN Assessment/Pt Instructions Take medications as prescribed. Follow up with Cardiology. Return with worsening symptoms. Discharge Planning: <30 minutes discharge planning Discharge Instructions Discharge Diet: Low Sodium Diet Activity as Tolerated: Yes Consultations Cardiology Discharge Physical Examination Vital Signs Vital Signs Date Time Temp Pulse Resp B/P (MAP) Pulse Ox O2 Delivery O2 Flow Rate FiO2 03/15/21 11:18 95 Nasal Cannula 2.00 03/15/21 08:00 36.4 77 16 118/76 (90) 03/13/21 21:26 21 General Appearance: No Apparent Distress, WD/WN Respiratory: Lungs Clear, Normal Breath Sounds, No Respiratory Distress Cardiovascular: Regular Rate, Rhythm, No Edema, No Murmur Gastrointestinal: Normal Bowel Sounds, Non Tender, Soft Extremity: Normal Inspection, Non Tender, No Pedal Edema Skin: Normal Color, Warm/Dry Neurologic/Psychiatric: Alert, Oriented x3, No Motor/Sensory Deficits, Normal Mood/Affect Allergies: Coded Allergies: vancomycin (Verified Allergy, Severe, 05/28/19) Pt states his face got really red and he went into ER for reaction. gemfibrozil (Verified Allergy, Unknown, 05/27/19) valdecoxib (Verified Allergy, Unknown, 05/27/19) Discharge Summary Date of Admission Mar 13, 2021 at 15:36 Date of Discharge Mar 15, 2021 at 11:55 Discharge Date: Mar 15, 2021 Discharge Time: 11:55 Admission Diagnosis AFib with RVR Consults/Procedures Consulations Cardiology, Urology Procedures Left heart catheterization, cystoscopy Discharge Diagnosis AFib with RVR NSTEMI Gross hematuria (1) Troponin level elevated Assessment & Plan: This was probably a type II non-ST elevation myocardial infarction related to tachycardia that was present at the time of admission. He underwent a cardiac catheterization that did not demonstrate any significant coronary artery disease. He has received 2 doses of aspirin. I will stop the aspirin since he takes apixaban for atrial fibrillation. This will help reduce the risk of hemorrhagic side effects from dual pathway inhibition. From a cardiac standpoint, he can be discharged home once his other noncardiac issues have improved. (2) Paroxysmal atrial fibrillation Assessment & Plan: He has a history of paroxysmal atrial fibrillation and has been on apixaban for stroke prophylaxis. He appears to be on the reduced dose of apixaban due to age over 80 and creatinine above 1.5. His apixaban can be resumed at this time. He is back in sinus rhythm this morning. He should continue on beta-aydin for rate control in the event he has recurrent atrial fibrillation. He is thinking he would prefer to follow-up with me as opposed to the long drive down to [place] where he was previously seeing Dr. Vera. (3) Aortic stenosis Assessment & Plan: His echocardiogram from this admission showed moderate aortic stenosis. This should not be contributing to his current clinical picture but will need to be followed longitudinally. (4) Primary hypertension Assessment & Plan: Blood pressure is well controlled with the present medication. These should be continued at the time of discharge. (5) Mixed hyperlipidemia Assessment & Plan: Continue statin medication. (6) Hematuria Assessment & Plan: He was seen by Dr. Arroyo who did a bedside cystoscopy. He has a urethral obstruction that will need to be addressed as an outpatient. The patient has a urologist in [place]. LALITHA JACK MD Mar 15, 2021 22:02
--- NOTE | 2021-03-17 04:18 | Physician Query Clarification ---
PQ-CHF Specificity Admission Date: Mar 13, 2021 at 15:36 Discharge Date: Mar 15, 2021 at 11:55 LALITHA Sanches MD The medical record reflects the following clinical scenario: History/Risk Factors: 85 y/o male patient admitted with atrial fibrillation with RVR elevated troponin secondary to type II CT, congestive heart failure was documented in the medical record. Clinical Findings: [id number] H, ejection [id number] % as per echo. Treatment: Cardedilol. Question: Can you further specify the acuity &/or type of CHF per the clinical indicators above? Please document a response in the Progress Notes or Discharge Summary. 1. Acuity: Acute, Chronic or Acute on Chronic 2. Type: Systolic, Diastolic or Systolic & Diastolic 3. Unspecified: CHF cannot be further specified regarding type or acuity 4. Other, with explanation of clinical findings 5. Clinically undetermined, no explanation for clinical findings PHYSICIAN RESPONSE Acuity: Chronic Type: Diastolic Please remember a lack of response to the above will prompt a phone page by [facility] staff. In responding to this query, please exercise your independent professional judgment. The purpose of this communication is to more accurately reflect the complexity of your patients condition. The fact that a question is asked does not imply that any particular answer is desired or expected. Thank you for your timely response to this clarification. Requestors name: [ ] Phone # [ ] THIS PHYSICIAN QUERY FORM IS A PERMANENT PART OF THE MEDICAL RECORD MARYSOL LUNDBERG Mar 17, 2021 04:18 LALITHA JACK MD Apr 06, 2021 19:27
== END 2021-03-15 11:55 | disposition home or self-care (01) | DRG 281 ==
LOC: EDUNIT# 12:18 → ER 12:20 → CSD 15:36
PROVIDERS: ADMIT Internal Medicine; ATTEND Internal Medicine
PROC: 5A2204Z Restoration of Cardiac Rhythm, Single (ICD-10-PCS; 2021-03-13)
PROC: 4A023N7 Measurement of Cardiac Sampling and Pressure, Left Heart, Percutaneous Approach (ICD-10-PCS; 2021-03-14)
PROC: B2111ZZ Fluoroscopy of Multiple Coronary Arteries using Low Osmolar Contrast (ICD-10-PCS; 2021-03-14)
PROC: 0TJB8ZZ Inspection of Bladder, Via Natural or Artificial Opening Endoscopic (ICD-10-PCS; principal; 2021-03-14 11:15)
DX: I48.0 Paroxysmal atrial fibrillation (principal); I21.A1 Myocardial infarction type 2; C85.90 Non-Hodgkin lymphoma, unspecified, unspecified site; I13.0 Hypertensive heart and chronic kidney disease with heart failure and stage 1 through stage 4 chronic kidney disease, or unspecified chronic kidney disease; I50.32 Chronic diastolic (congestive) heart failure; R31.0 Gross hematuria; I35.0 Nonrheumatic aortic (valve) stenosis; E78.2 Mixed hyperlipidemia; N35.919 Unspecified urethral stricture, male, unspecified site; N18.31 Chronic kidney disease, stage 3a; N40.0 Benign prostatic hyperplasia without lower urinary tract symptoms; M10.9 Gout, unspecified; J44.9 Chronic obstructive pulmonary disease, unspecified; I25.10 Atherosclerotic heart disease of native coronary artery without angina pectoris; G47.33 Obstructive sleep apnea (adult) (pediatric); Z87.891 Personal history of nicotine dependence; E78.00 Pure hypercholesterolemia, unspecified; K21.9 Gastro-esophageal reflux disease without esophagitis; M19.90 Unspecified osteoarthritis, unspecified site; Z92.3 Personal history of irradiation; R09.02 Hypoxemia; Z20.822 Contact with and (suspected) exposure to COVID-19
CPT/HCPCS: 36415; 71045; 80048; 80053; 80061; 81000; 82550; 82553; 83735; 83874; 83880; 84443; 84484; 85025; 85610; 85652; 85730; 86141; 87081; 87636; 93005; 93041; 93306; 93458; 94640; 96361; 96372; 96374; 96375

== ENCOUNTER → 2021-03-29 | Outpatient (CLI) | payer MEDICARE, OTHER ==
[~2021-03-29] MED LIST changes: +CARB15DR OD
--- NOTE | 2021-03-29 12:55 | Diagnostic Imaging Report ---
INDICATION: Cough and shortness of air. TIME OF EXAM: 12:48 PM Comparison is made with prior chest from 03/13/2021. Heart size normal. Bilateral infiltrates have improved since prior exam. No changes of congestive failure are identified. There is no significant effusion. There is some linear atelectasis in the right base. No pneumothorax. IMPRESSION: Improving changes of congestive failure when compared to study from 03/13/2021. Dictated by: Dictated on workstation # [id number]
[2021-03-29 13:06] LABS: POTASSIUM 3.7 MMOL/L (3.6-5.0)
[2021-03-29 13:07] LABS: CALCIUM 9.5 MG/DL (8.5-10.1)
[2021-03-29 13:12] LABS: CREATININE SERUM 1.3 MG/DL (0.60-1.30)
== END ==
LOC: RAD 12:10
PROVIDERS: ATTEND Internal Medicine Cardiovascular Disease
DX: I50.32 Chronic diastolic (congestive) heart failure (principal)
CPT/HCPCS: 36415; 71046; 80048

== ENCOUNTER → 2021-05-16 | Outpatient (CLI) | payer MEDICARE, OTHER ==
[~2021-05-16] MED LIST changes: +FOLI400T4 PO; +VITA1TAB17 PO
--- NOTE | 2021-05-16 12:48 | Diagnostic Imaging Report ---
INDICATION: Heart failure. TIME OF EXAM: 12:26 PM Correlation is made with prior chest from 03/29/2021. Heart size is stable. There is some patchy infiltrate in the right upper lobe and left base. No significant effusion or pneumothorax is detected. IMPRESSION: Patchy bilateral infiltrates. Dictated by: Dictated on workstation # [id number]
== END ==
LOC: RAD 12:06
PROVIDERS: ATTEND Internal Medicine Cardiovascular Disease
DX: R91.8 Other nonspecific abnormal finding of lung field (principal); I50.32 Chronic diastolic (congestive) heart failure
CPT/HCPCS: 71046

== ENCOUNTER 2021-05-18 08:11 | Inpatient (IN) | payer MEDICARE, OTHER ==
[~2021-05-18] VITALS: Ht 167.7 cm; Wt 78.2 kg
[~2021-05-18 08:11] MED LIST changes: -FOLI400T4 PO; -VITA1TAB17 PO
[2021-05-18 08:33] LABS: BASOPHILS % (AUTO) 0 % (0-10); EOSINOPHILS # (AUTO) 0.2 10^3/uL (0.0-0.3); EOSINOPHILS % (AUTO) 1 % (0-10); HEMATOCRIT 43 % (40-54); HEMOGLOBIN 14.4 g/dL (13.3-17.7); LYMPHOCYTES # (AUTO) 3.1 10^3/uL (1.0-4.0); LYMPHOCYTES % (AUTO) 20 % (12-44); MEAN CORPUSCULAR HEMOGLOBIN 35 pg (25-34); MEAN CORPUSCULAR HGB CONC 34 g/dL (32-36); MEAN CORPUSCULAR VOLUME 104 fL (80-99); MEAN PLATELET VOLUME 10.8 fL (9.0-12.2); MONOCYTES # (AUTO) 0.8 10^3/uL (0.0-1.0); MONOCYTES % (AUTO) 5 % (0-12); NEUTROPHILS # (AUTO) 11.6 10^3/uL (1.8-7.8); NEUTROPHILS % (AUTO) 73 % (42-75); PLATELET COUNT 160 10^3/uL (130-400); WHITE BLOOD COUNT 15.8 10^3/uL (4.3-11.0)
[2021-05-18 08:45] LABS: ABG BASE EXCESS -2.9 MMOL/L (-2.5-2.5); ABG OXYGEN SATURATION 93 % (94-100); ABG PCO2 30 MMHG (35-45); ABG PH 7.44 (7.37-7.43); ABG PO2 64 MMHG (79-93); ABG TCO2 21.5 MMOL/L (21.0-31.0)
[2021-05-18 08:46] LABS: ALLENS TEST YES-POS; INSPIRED O2 2 L; PATIENT TEMP 37; VENTILATOR NO
[2021-05-18 08:48] LABS: ALBUMIN 3.9 GM/DL (3.2-4.5); POTASSIUM 4.1 MMOL/L (3.6-5.0)
[2021-05-18 08:50] LABS: ANISOCYTOSIS SLIGHT; EOSINOPHILS % (MANUAL) 1 %; LYMPHOCYTES % (MANUAL) 19 %; MONOCYTES % (MANUAL) 4 %; NEUTROPHILS % (MANUAL) 76 %
[2021-05-18 08:52] LABS: BILIRUBIN,TOTAL 1.2 MG/DL (0.1-1.0)
[2021-05-18 08:53] LABS: FIBRIN DEGRADATION PRODUCTS 0.79 UG/ML (0.00-0.49); INR 1.1 (0.8-1.4)
[2021-05-18 08:54] LABS: CREATININE SERUM 1.54 MG/DL (0.60-1.30)
--- NOTE | 2021-05-18 09:01 | ED Chest Pain ---
General Chief Complaint: Respiratory Problems Stated Complaint: SOA - COUGHING UP BLOOD Source: patient Exam Limitations: no limitations History of Present Illness Date Seen by Provider: May 18, 2021 Time Seen by Provider: 08:30 Initial Comments Patient to the ER by private conveyance with his significant other chief complaint he said a couple weeks of light hemoptysis that is progressively gotten worse. He had subjective fevers but none today. No antipyretics today. He does not have a history of coronary disease but he is on Eliquis for history of atrial fibrillation known to Dr. Solorzano and Dr. Ramirez in [place]. He saw Dr. Solorzano on Sunday, 2 days ago and because he was having the productive cough had a chest x-ray which looked like a pneumonia. He was told to follow-up with PCP. PCP said he would be 2 months before he could see him. Patient symptoms are worsening he is not having chest pain however. Echocardiogram by Dr. Solorzano February 2021 demonstrates EF of 55 to 65%. Grade 2 diastolic dysfunction. Allergies and Home Medications Allergies Coded Allergies: vancomycin (Verified Allergy, Severe, 05/28/19) Pt states his face got really red and he went into ER for reaction. gemfibrozil (Verified Allergy, Unknown, 05/27/19) valdecoxib (Verified Allergy, Unknown, 05/27/19) Patient Home Medication List Home Medication List Reviewed: Yes Allopurinol (Allopurinol) 300 Mg Tablet, 300 MG PO DAILY, (Reported) Entered as Reported by: LISA GEE on 11/22/181320 Last Action: Reviewed Apixaban (Eliquis) 2.5 Mg Tablet, 2.5 MG PO BID, (Reported) Entered as Reported by: LISA GEE on 11/22/181320 Last Action: Reviewed Atorvastatin Calcium (Atorvastatin Calcium) 40 Mg Tablet, 40 MG PO DAILY, (Reported) Entered as Reported by: LISA GEE on 11/22/181320 Last Action: Reviewed Carboxymethylcellulose Sodium (Refresh Tears) 15 Ml Drops, 1 DROP OD BID, (Reported) Entered as Reported by: CATHERINE WALKER on 03/14/21 1117 Last Action: Reviewed Carvedilol (Carvedilol) 6.25 Mg Tablet, 6.25 MG PO BID, (Reported) Entered as Reported by: LISA GEE on 11/22/181320 Last Action: Reviewed Cholecalciferol (Vitamin D3) (Vitamin D3) 25 Mcg Capsule, 25 MCG PO HS, (Rep orted) Entered as Reported by: CATHERINE WALKER on 05/18/201106 Last Action: Reviewed Diphenhydramine HCl (Allergy Relief) 25 Mg Capsule, 25 MG PO HS PRN for ALLERGIES, (Reported) Entered as Reported by: LISA GEE on 11/22/181320 Last Action: Reviewed Fluticasone Propion/Salmeterol (Fluticasone-Salmeterol 100-50) 1 Each Blst.w.dev, 1 PUFF INH BID, (Reported) Entered as Reported by: CATHERINE WALKER on 05/18/201106 Last Action: Reviewed Fluticasone Propionate (Flonase Allergy Relief) 9.9 Ml [place].susp, 1 SPRAY NS HS PRN for CONGESTION, (Reported) Entered as Reported by: LISA GEE on 11/22/181320 Last Action: Reviewed Folic Acid/Vitamin B Comp W-C (Super B-Complex Folic-Vit C Tb) 400 Mcg Tablet, 400 MCG PO DAILY Prescribed by: CHIDI BERGER on 05/18/21 1638 Last Action: Reviewed Furosemide (Furosemide) 20 Mg Tablet, 20 MG PO DAILY, (Reported) Entered as Reported by: LISA GEE on 11/22/181320 Last Action: Reviewed Magnesium Oxide (Magnesium Oxide) 250 Mg Tablet, 250 MG PO DAILY, (Reported) Entered as Reported by: CATHERINE WALKER on 05/18/20 111 Last Action: Reviewed Methotrexate Sodium (Methotrexate) 2.5 Mg Tablet, 10 MG PO THURS, (Reported) Entered as Reported by: LISA GEE on 11/25/18 0830 Last Action: Reviewed [place]-3/Dha/Epa/Dpa/Fish Oil ([place]-3 2100 Softgel) 1 Each Capsule, 1 EACH PO HS, (Reported) Entered as Reported by: CATHERINE WALKER on 05/18/201106 Last Action: Reviewed Omeprazole (Omeprazole) 40 Mg Capsule.dr, 40 MG PO DAILY, (Reported) Entered as Reported by: LISA GEE on 11/22/181320 Last Action: Reviewed Pedi Mv No.79/Ferrous Fumarate (Flintstones with Iron Tab Chew) 18 Mg Tab.chew, 18 MG PO HS, (Reported) Entered as Reported by: LISA GEE on 11/22/181320 Last Action: Reviewed Prednisone (Prednisone) 5 Mg Tablet, 5 MG PO DAILY, (Reported) Entered as Reported by: LISA GEE on 11/22/181320 Last Action: Reviewed Tamsulosin HCl (Flomax) 0.4 Mg Cap, 0.4 MG PO DAILY, (Reported) Entered as Reported by: CATHERINE WALKER on 05/18/20 110 Last Action: Reviewed Vit C/E/Zn/Coppr/Lutein/Zeaxan (Preservision Areds 2 Softgel) 1 Each Capsule, 1 EACH PO HS, (Reported) Entered as Reported by: CATHERINE WALKER on 03/14/211116 Last Action: Reviewed Zinc Amino Acid Chelate (Zinc) 50 Mg Tablet, 50 MG PO DAILY, (Reported) Entered as Reported by: LISA GEE on 11/22/181320 Last Action: Reviewed [Jessy's Leg Cramps] , 1 TAB SL HS PRN for CRAMPS, (Reported) Entered as Reported by: LISA GEE on 11/22/181320 Last Action: Reviewed Discontinued Medications Iron Polysaccharide Complex (Ferrex 150) 150 Mg Capsule, 150 MG PO HS, (Reported) Discontinued Reason: No Longer Taking Entered as Reported by: CATHERINE WALKER on 03/14/211116 Last Action: Discontinued Review of Systems Review of Systems Constitutional: chills, fever, malaise, weakness EENTM: No Blurred Vision, No Double Vision Respiratory: Cough, Shortness of Air, SOA With Exertion Cardiovascular: Denies Chest Pain, Denies Lightheadedness Gastrointestinal: Denies Constipated, Denies Diarrhea, Denies Nausea; Poor Fluid Intake Genitourinary: Denies Discharge, Denies Drainage Musculoskeletal: No back pain, No joint pain All Other Systems Reviewed Negative Unless Noted: Yes Past Czsdaxo-Lvmfns-Lwmybv Hx Patient Social History Tobacco Use?: No Use of E-Cig and/or Vaping dev: No Substance use?: No Immunizations Up To Date Tetanus Booster (TDap): Unknown First/Initial COVID19 Vaccinat: MAY 2020 Second COVID19 Vaccination Adalid: JUNE 2020 Seasonal Allergies Seasonal Allergies: Yes Past Medical History Surgery/Hospitalization HX: RIGHT HIP SURGERY CARDIOVERSIONS Surgeries: Yes Orthopedic, Prostatectomy Respiratory: Yes Sleep Apnea, COPD Currently Using CPAP: Yes Currently Using BIPAP: No Cardiac: Yes Atrial Fibrillation, Chronic Edema/Swelling, Coronary Artery Disease, Heart Murmur, High Cholesterol, Hypertension, Valvular Heart Disease Neurological: No Genitourinary: Yes Benign Prostatic Hyperpl, Renal Failure Gastrointestinal: Yes Gastroesophageal Reflux Musculoskeletal: Yes (RIGHT HIP SURGERY) Arthritis, Gout Endocrine: No HEENT: Yes Cataract Loss of Vision: Denies Hearing Impairment: Denies, Bilateral Hearing Aide Cancer: Yes Prostate, Lymphoma Did You Recieve Any Treatments: Yes What Type of Treatment Did You: Radiation Psychosocial: No Integumentary: Yes (DERMATITIS ON FACE) Blood Disorders: Yes Adverse Reaction/Blood Tranf: Yes (THINKS HE HAS HAD A RXN, BUT UNSURE WHAT) Family Medical History Cardiovascular disease 19 MOTHER Diabetes mellitus 19 MOTHER FH: prostate cancer G8 BROTHER Myocardial infarction 19 FATHER No Pertinent Family Hx Physical Exam Vital Signs Vital Signs - First Documented Capillary Refill : Height, Weight, BMI Height: 5'6.00" Weight: 173lbs. 6.4oz. [id number]; 27.44 BMI Method: General Appearance: Anxious, Moderate Distress HEENT: PERRL/EOMI, TMs Normal, Normal ENT Inspection, Pharynx Normal, Moist Mucous Membranes Neck: Full Range of Motion, Normal Inspection, Non Tender Respiratory: Crackles, Decreased Breath Sounds Cardiovascular: Regular Rate, Rhythm, Normal Peripheral Pulses Gastrointestinal: Normal Bowel Sounds, Non Tender, Soft Extremity: Normal Capillary Refill, Normal Inspection, Normal Range of Motion, No Pedal Edema Neurologic/Psychiatric: Alert, Oriented x3, No Motor/Sensory Deficits Skin: Normal Color, Warm/Dry Focused Exam Lactate Level 05/18/21 08:30: Lactic Acid Level 4.70*H 05/18/21 12:00: Lactic Acid Level 2.46*H Lactic Acid Level Laboratory Tests Test 05/18/21 08:30 05/18/21 12:00 Lactic Acid Level 4.70 MMOL/L (0.50-2.00) *H 2.46 MMOL/L (0.50-2.00) *H Procedures/Interventions Patient Education: Explained Benefits, Explained Risks, Pt. Ack. Understanding Breath Sounds per Auscultation: Wheezes Heart Sounds per Auscultation: Irregular Airway Exam: Mouth opens >2 fingers Progress/Results/Core Measures Results/Orders Lab Results Laboratory Tests Test 05/18/21 08:30 05/18/21 08:40 05/18/21 08:44 05/18/21 09:28 Range/Units White Blood Count 15.8 H 4.3-11.0 10^3/uL Red Blood Count 4.13 L 4.30-5.52 10^6/uL Hemoglobin 14.4 13.3-17.7 g/dL Hematocrit 43 40-54 % Mean Corpuscular Volume 104 H 80-99 fL Mean Corpuscular Hemoglobin 35 H 25-34 pg Mean Corpuscular Hemoglobin Concent 34 32-36 g/dL Red Cell Distribution Width 14.8 H 10.0-14.5 % Platelet Count 160 130-400 10^3/uL Mean Platelet Volume 10.8 9.0-12.2 fL Immature Granulocyte % (Auto) 0 % Neutrophils (%) (Auto) 73 42-75 % Lymphocytes (%) (Auto) 20 12-44 % Monocytes (%) (Auto) 5 0-12 % Eosinophils (%) (Auto) 1 0-10 % Basophils (%) (Auto) 0 0-10 % Neutrophils # (Auto) 11.6 H 1.8-7.8 10^3/uL Lymphocytes # (Auto) 3.1 1.0-4.0 10^3/uL Monocytes # (Auto) 0.8 0.0-1.0 10^3/uL Eosinophils # (Auto) 0.2 0.0-0.3 10^3/uL Basophils # (Auto) 0.0 0.0-0.1 10^3/uL Immature Granulocyte # (Auto) 0.1 0.0-0.1 10^3/uL Neutrophils % (Manual) 76 % Lymphocytes % (Manual) 19 % Monocytes % (Manual) 4 % Eosinophils % (Manual) 1 % Anisocytosis SLIGHT Prothrombin Time 15.0 H 12.2-14.7 SEC INR Comment 1.1 0.8-1.4 Activated Partial Thromboplast Time 26 24-35 SEC D-Dimer 0.79 H 0.00-0.49 UG/ML Sodium Level 139 135-145 MMOL/L Potassium Level 4.1 3.6-5.0 MMOL/L Chloride Level 102 98-107 MMOL/L Carbon Dioxide Level 20 L 21-32 MMOL/L Anion Gap 17 H 5-14 MMOL/L Blood Urea Nitrogen 24 H 7-18 MG/DL Creatinine 1.54 H 0.60-1.30 MG/DL Estimat Glomerular Filtration Rate 44 BUN/Creatinine Ratio 16 Glucose Level 182 H 70-105 MG/DL Lactic Acid Level 4.70 *H 0.50-2.00 MMOL/L Calcium Level 10.0 8.5-10.1 MG/DL Corrected Calcium 10.1 8.5-10.1 MG/DL Total Bilirubin 1.2 H 0.1-1.0 MG/DL Aspartate Amino Transf (AST/SGOT) 27 5-34 U/L Alanine Aminotransferase (ALT/SGPT) 23 0-55 U/L Alkaline Phosphatase 82 40-136 U/L Troponin I 0.808 *H <0.028 NG/ML C-Reactive Protein High Sensitivity 1.19 H 0.00-0.50 MG/DL B-Type Natriuretic Peptide 555.3 H <100.0 PG/ML Total Protein 7.0 6.4-8.2 GM/DL Albumin 3.9 3.2-4.5 GM/DL Procalcitonin 0.05 <0.10 NG/ML Blood Gas Puncture Site NA Blood Gas Patient Temperature 37 Arterial Blood pH 7.44 H 7.37-7.43 Arterial Blood Partial Pressure CO2 30 L 35-45 MMHG Arterial Blood Partial Pressure O2 64 L 79-93 MMHG Arterial Blood HCO3 21 L 23-27 MMOL/L Arterial Blood Total CO2 21.5 21.0-31.0 MMOL/L Arterial Blood Oxygen Saturation 93 L 94-100 % Arterial Blood Base Excess -2.9 L -2.5-2.5 MMOL/L David Test YES-POS Blood Gas Ventilator Setting NO Blood Gas Inspired Oxygen 2 L Influenza Type A (RT-PCR) Not Detected Not Detecte Influenza Type B (RT-PCR) Not Detected Not Detecte SARS-CoV-2 RNA (RT-PCR) Not Detected Not Detecte Urine Color YELLOW Urine Clarity SL CLOUDY Urine pH 6.0 5-9 Urine Specific Williams 1.025 H 1.016-1.022 Urine Protein TRACE H NEGATIVE Urine Glucose (UA) NEGATIVE NEGATIVE Urine Ketones NEGATIVE NEGATIVE Urine Nitrite NEGATIVE NEGATIVE Urine Bilirubin NEGATIVE NEGATIVE Urine Urobilinogen 1.0 < = 1.0 MG/DL Urine Leukocyte Esterase NEGATIVE NEGATIVE Urine RBC (Auto) NEGATIVE NEGATIVE Urine RBC 0-2 /HPF Urine WBC RARE /HPF Urine Squamous Epithelial Cells 0-2 /HPF Urine Crystals NONE /LPF Urine Bacteria NEGATIVE /HPF Urine Casts PRESENT /LPF Urine Hyaline Casts 0-2 H /LPF Urine Mucus NEGATIVE /LPF Urine Culture Indicated CULTURE PENDING Test 05/18/21 09:38 05/18/21 12:00 Range/Units Lactic Acid Level 2.46 *H 0.50-2.00 MMOL/L My Orders Orders - AMBER,VERN J Chest 1 View, Ap/Pa Only (05/18/21 08:22) Cbc With Automated Diff (05/18/21 08:22) Comprehensive Metabolic Panel (05/18/21 08:22) Hs C Reactive Protein (05/18/21 08:22) Fibrin Degradation Products (05/18/21 08:22) Troponin I Coos (05/18/21 08:22) Continuous Ekg Monitoring (05/18/21 08:22) Ekg Tracing (05/18/21 08:22) Arterial Blood Gas (05/18/21 08:22) Protime With Inr (05/18/21 08:22) Manual Differential (05/18/21 08:30) Covid 19 Inhouse Test (05/18/21 08:39) Influenza A And B By Pcr (05/18/21 08:39) Isolation Central Supply Req (05/18/21 08:39) Arterial Blood Gas (05/18/21 08:45) Blood Culture (05/18/21 09:03) Urinalysis (05/18/21 09:03) Urine Culture (05/18/21 09:03) Partial Thromboplastin Time (05/18/21 09:03) Ed Iv/Invasive Line Start (05/18/21 09:03) Ed Iv/Invasive Line Start (05/18/21 09:03) Ekg Tracing (05/18/21 09:03) Vital Signs Adult Sepsis Patie Q15M (05/18/21 09:03) O2 (05/18/21 09:03) Remove Rings In Anticipation O (05/18/21 09:03) Lactic Acid Analyzer (05/18/21 09:03) Ns Iv 1000 Ml (Sodium Chloride 0.9%) (05/18/21 09:15) Ed Iv/Invasive Line Start (05/18/21 09:03) Ns Iv 500 Ml (Sodium Chloride 0.9%) (05/18/21 09:15) Ct Angio Chest W (05/18/21 09:16) Albuterol/Ipra Inhalation Soln (Duoneb I (05/18/21 09:45) Svn Small Volume Nebulizer (05/18/21 09:38) Ed Iv/Invasive Line Start (05/18/21 09:48) Ns Iv 1000 Ml (Sodium Chloride 0.9%) (05/18/21 10:00) Cefepime Injection (Maxipime Injection) (05/18/21 10:00) Levofloxacin 500 Mg/100 Ml Iv (Levaquin (05/18/21 10:00) Iohexol Injection (Omnipaque 350 Mg/Ml 1 (05/18/21 10:00) Received Contrast (Hold Metformin- Contr (05/18/21 10:00) Ns (Ivpb) (Sodium Chloride 0.9% Ivpb Bag (05/18/21 10:00) Sodium Chloride Flush (Catheter Flush Sy (05/18/21 10:00) Bnp Coos (05/18/21 10:54) Furosemide Injection (Lasix Injection) (05/18/21 11:45) Tranexamic Acid Injection (Cyklokapron I (05/18/21 11:45) Medications Given in ED Current Medications Medications Dose Ordered Sig/Yonny Route Start Time Stop Time Status Last Admin Dose Admin Albuterol/ Ipratropium 3 ml ONCE ONCE INH 05/18/21 09:45 05/18/21 09:46 DC 05/18/21 09:54 3 ML Cefepime HCl 1000 mg/Sodium Chloride 50 ml @ 100 mls/hr ONCE ONCE IV 05/18/21 10:00 05/18/21 10:29 DC 05/18/21 09:58 100 MLS/HR Furosemide 20 mg ONCE ONCE IVP 05/18/21 11:45 05/18/21 11:46 DC 05/18/21 12:31 20 MG Iohexol 100 ml ONCE ONCE IV 05/18/21 10:00 05/18/21 10:01 DC 05/18/21 11:18 69 ML Levofloxacin/ Dextrose 100 ml @ 100 mls/hr ONCE ONCE IV 05/18/21 10:00 05/18/21 10:59 DC 05/18/21 11:40 100 MLS/HR Sodium Chloride 10 ml NEEDED PRN IV 05/18/21 10:00 05/18/21 14:37 DC 05/18/21 11:18 10 ML Sodium Chloride 100 ml ONCE ONCE IV 05/18/21 10:00 05/18/21 10:01 DC 05/18/21 11:18 80 ML Sodium Chloride 500 ml @ 0 mls/hr Q0M ONCE IV 05/18/21 09:15 05/18/21 09:16 DC 05/18/21 10:07 500 MLS/HR Tranexamic Acid 500 mg ONCE ONCE NA 05/18/21 11:45 05/18/21 11:46 DC 05/18/21 12:15 500 MG Vital Signs/I&O 05/18/21 05/18/21 05/18/21 05/18/21 08:46 08:46 09:55 11:20 Temp 36.9 Pulse 109 114 Resp 37 24 B/P (MAP) 144/96 (112) Pulse Ox 91 94 96 99 O2 Delivery Nasal Cannula Nasal Cannula Nasal Cannula O2 Flow Rate 4.00 4.00 4.00 100.00 Progress Progress Note #1: Time: 09:01 Progress Note Reviewed EKG with Dr. Villegas who agrees there is no acute SD. Concern for PE versus pneumonia. Patient is on Eliquis. Plan to get some labs and a septic work-up. 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 He does have some wheezing so we will give him a DuoNeb testing for Covid and influenza and look for pneumonia. Cover with Rocephin and azithromycin. Progress Note #2: Time: 10:58 Progress Note Patient had oxygen saturations in the 80s and on 5 L he is maintaining oxygen saturation of 92%. His tachycardia and congestion has worsened after 1500 cc of fluid so were going to halt any further fluids get a BNP and may even have to diurese him. Likely he has pneumonia on top of heart failure. His blood pressure is not sufficient to try nitroglycerin to help with his heart failure. Lasix 20 mg IV and BiPAP to try and help with his worsening work of breathing. Blood pressure is's soft 110-120 systolic. TXA 500 mg nebulized. Initial ECG Impression Date: May 18, 2021 Initial ECG Impression Time: 08:29 Initial ECG Rate: 106 Initial ECG Rhythm: S.Tach Initial ECG Intervals: QT (497) Initial ECG Impression: Normal, Nonspecific Changes Comment Sinus tachycardia with PVCs and no clinically relevant ST changes. EKG : EKG Time: 08:30 Rate: 106 Rhythm: S.Tach Intervals: QT (497) ECG Comparisson: Unchanged ECG Impression: Normal Comment Sinus tachycardia with no clinically relevant ST elevation or depression. Repeated for a clear picture. Reviewed with Dr. Villegas, cardiology who agrees with initial read. Diagnostic Imaging Diagonstic Imaging: Xray Plain Films/CT/US/NM/MRI: chest Comments [facility] [place] [facility] [id number] PT STATUS: REG ER : 1935 PHYSICIAN: VERN CLARK MD ADMIT DATE: 05/18/21/ER Draft Date of Exam:05/18/21 CHEST 1 VIEW, AP/PA ONLY INDICATION: Cough, hemoptysis. EXAMINATION: Chest on 05/18/2021. COMPARISON: 03/13/2021. FINDINGS: There are diffuse infiltrates within the mid lungs bilaterally with infiltrate in the left lung base also noted. The heart is slightly prominent. The pulmonary vasculature is congested. There are no effusions. There is no pneumothorax. IMPRESSION: 1. Scattered bilateral infiltrates. 2. Pulmonary vascular congestion. Dictated on workstation # [id number] Dict: 05/18/21 0955 Trans: 05/18/21 0958 [id number] Interpreted by: SUNNY BALTAZAR MD Electronically signed by: Reviewed: Reviewed by Me Diagonstic Imaging: CT (angio) Plain Films/CT/US/NM/MRI: chest Comments [facility] [place] [facility] [id number] PT STATUS: REG ER : 1935 PHYSICIAN: VERN CLARK MD ADMIT DATE: 05/18/21/ER Draft Date of Exam:05/18/21 CT ANGIO CHEST W PROCEDURE: CT angiography of the chest with contrast. TECHNIQUE: Multiple contiguous axial images were obtained through the chest after uneventful bolus administration of intravenous contrast. 3D reconstructed CTA MIP acquisitions were also performed. Auto Exposure Controls were utilized during the CT exam to meet ALARA standards for radiation dose reduction. INDICATION: High probability for pulmonary embolism. Breathing motion does limit assessment. COMPARISON: 05/17/2020. FINDINGS: There is good opacification of the pulmonary arteries without intraluminal filling defect identified. There has been development of significant mixed groundglass and airspace densities throughout the lower half of the lungs with mild bilateral pleural fluid. No pathologically enlarged adenopathy is identified. There are numerous calcifications in the mediastinum and ani. There is dense calcification at the mitral and aortic valves. IMPRESSION: Study is somewhat limited due to respiratory motion, however no pulmonary embolism is identified. Groundglass and airspace disease in both lungs may reflect edema and/or pneumonitis with small bilateral pleural effusions. Dictated on workstation # [id number] Dict: 05/18/21 1123 Trans: 05/18/21 1133 [id number] Interpreted by: KEYANA LAKE MD Electronically signed by: Reviewed: Reviewed by Me Departure Communication (Admissions) Time/Spoke to Admitting Phy: 12:55 Discussed the case with Dr. Jack and he agrees to admit the patient to the ICU with consultation to cardiology. He agrees with antibiotics, BiPAP. Time/Spoke to Consulting Phy: 13:14 Discussed the case with Dr. Solorzano, cardiology and he is familiar the patient and agrees to consult. 1315: Discussed the case with eICU and they agree to consult on the case. Impression Primary Impression: Acute respiratory failure with hypoxemia Additional Impressions: Heart failure, acute diastolic Pneumonia Qualified Codes: J18.9 - Pneumonia, unspecified organism Septic shock Disposition: ADMITTED INPATIENT Condition: Critical Admissions Decision to Admit Reason: Admit from ER (General) Decision to Admit/Date: May 18, 2021 Time/Decision to Admit Time: 12:59 Departure-Patient Inst. Referrals: LEE RAMIREZ DO (PCP/Family) Primary Care Physician Scripts Folic Acid/Vitamin B Comp W-C (Super B-Complex Folic-Vit C Tb) 400 Mcg Tablet 400 MCG PO DAILY for 30 Days, TAB Prov: LALITHA JACK MD 05/18/21 VERN CLARK May 18, 2021 09:01
[2021-05-18] MEDS ORDERED: NS IV 1000 ML 1,000 ML IV SCH ×2 (09:15→10:00)
[2021-05-18] MEDS ORDERED: cefTRIAXone 1 GM PRE-MIX 50 ML IV ONE (09:15)
[2021-05-18] MEDS ORDERED: AZITHROMYCIN INJECTION 500 MG in NS (IVPB) 250 ML IV ONE (09:15)
[2021-05-18] MEDS ORDERED: NS IV 500 ML 500 ML IV ONE (09:15)
[2021-05-18 09:33] LABS: BILIRUBIN,URINE NEGATIVE (NEGATIVE); CLARITY,URINE SL CLOUDY; COLOR,URINE YELLOW; GLUCOSE, URINE (UA) NEGATIVE (NEGATIVE); KETONES,URINE NEGATIVE (NEGATIVE); LEUKOCYTE ESTERASE ,URINE NEGATIVE (NEGATIVE); NITRITE,URINE NEGATIVE (NEGATIVE); PROTEIN,URINE TRACE (NEGATIVE)
[2021-05-18 09:41] LABS: BACTERIA,URINE NEGATIVE /HPF; HYALINE CASTS, URINE 0-2 /LPF; RBC,URINE 0-2 /HPF; SQUAMOUS EPITHELIAL CELL,UR 0-2 /HPF; WBC,URINE RARE /HPF
[2021-05-18] MEDS ORDERED: RT-ALBUTEROL/IPRATROPIUM 3 ML (DUONEB) VIAL INH ONE (09:45)
--- NOTE | 2021-05-18 09:59 | Diagnostic Imaging Report ---
INDICATION: Cough, hemoptysis. EXAMINATION: Chest on 05/18/2021. COMPARISON: 03/13/2021. FINDINGS: There are diffuse infiltrates within the mid lungs bilaterally with infiltrate in the left lung base also noted. The heart is slightly prominent. The pulmonary vasculature is congested. There are no effusions. There is no pneumothorax. IMPRESSION: 1. Scattered bilateral infiltrates. 2. Pulmonary vascular congestion. Dictated by: Dictated on workstation # [id number]
[2021-05-18] MEDS ORDERED: IOHEXOL 350 MG/ML 100 ML (OMNIPAQUE 350) VIAL IV ONE (10:00)
[2021-05-18] MEDS ORDERED: HOLD METFORMIN - RECEIVED CONTRAST 20 ML VIAL IV SCH (10:00)
[2021-05-18] MEDS ORDERED: NS 100 ML (IVPB) BAG IV ONE (10:00)
[2021-05-18] MEDS ORDERED: CEFEPIME INJECTION 1,000 MG in NS (IVPB) 50 ML IV ONE (10:00)
[2021-05-18] MEDS ORDERED: CATHETER FLUSH 10 ML SYR IV PRN ×2 (10:00→15:00)
--- NOTE | 2021-05-18 11:33 | Diagnostic Imaging Report ---
PROCEDURE: CT angiography of the chest with contrast. TECHNIQUE: Multiple contiguous axial images were obtained through the chest after uneventful bolus administration of intravenous contrast. 3D reconstructed CTA MIP acquisitions were also performed. Auto Exposure Controls were utilized during the CT exam to meet ALARA standards for radiation dose reduction. INDICATION: High probability for pulmonary embolism. Breathing motion does limit assessment. COMPARISON: 05/17/2020. FINDINGS: There is good opacification of the pulmonary arteries without intraluminal filling defect identified. There has been development of significant mixed groundglass and airspace densities throughout the lower half of the lungs with mild bilateral pleural fluid. No pathologically enlarged adenopathy is identified. There are numerous calcifications in the mediastinum and ani. There is dense calcification at the mitral and aortic valves. IMPRESSION: Study is somewhat limited due to respiratory motion, however no pulmonary embolism is identified. Groundglass and airspace disease in both lungs may reflect edema and/or pneumonitis with small bilateral pleural effusions. Dictated by: Dictated on workstation # [id number]
[2021-05-18] MEDS ORDERED: FUROSEMIDE 40 MG/4 ML INJ (LASIX) IVP ONE (11:45)
[2021-05-18] MEDS ORDERED: TRANEXAMIC ACID 100 MG/ML 10 ML INJECTION ONE (11:45)
[2021-05-18] MEDS ORDERED: EPINEPHrine 1 MG INJECTION 4 MG in NS (IVPB) 248 ML IV SCH (15:00)
[2021-05-18] MEDS ORDERED: ACETAMINOPHEN 650 MG SUPP (TYLENOL) PR PRN (15:00)
[2021-05-18] MEDS ORDERED: ONDANSETRON 4 MG/2 ML (SDV) Z0FRAN IVP PRN (15:00)
[2021-05-18] MEDS ORDERED: ACETAMINOPHEN 325 MG TABLET PO PRN (15:00)
--- NOTE | 2021-05-18 15:22 | History & Physical ---
EAMONMIRTHA 05/18/21 1522: History of Present Illness History of Present Illness Reason for visit/HPI Pt is an 85yo male w/PMH of Stage 3 CKD, HTN and Chronic AFIB. He has had worsening hemoptysis for the last [address] Solorzano 2 days ago, had a CXR showing bilateral infiltrates and was referred to PCP, but could not get appointment for two months. Presented to ER today with SOA and hemoptysis. Denies any fever, sweats/chills, chest pain, N/V or diarrhea. Pt states he has had shortness of breath for longer than 6months and saw a long winder tender in [place] who did not find anything significant. He takes Eliquis for his chronic AFIB. Date of Admission May 18, 2021 at 12:55 Date Seen by a Provider: May 18, 2021 Time Seen by a Provider: 14:30 I consulted on this patient on 05/18/21 14:53 Attending Physician Lalitha Jack MD Admitting Physician Villa Ramirez DO Consult Allergies and Home Medications Allergies Coded Allergies: vancomycin (Verified Allergy, Severe, 05/28/19) Pt states his face got really red and he went into ER for reaction. gemfibrozil (Verified Allergy, Unknown, 05/27/19) valdecoxib (Verified Allergy, Unknown, 05/27/19) Patient Home Medication List Allopurinol (Allopurinol) 300 Mg Tablet, 300 MG PO DAILY, (Reported) Entered as Reported by: LISA GEE on 11/22/181320 Last Action: Reviewed Apixaban (Eliquis) 2.5 Mg Tablet, 2.5 MG PO BID, (Reported) Entered as Reported by: LISA GEE on 11/22/18 132 Last Action: Reviewed Atorvastatin Calcium (Atorvastatin Calcium) 40 Mg Tablet, 40 MG PO DAILY, (Reported) Entered as Reported by: LISA GEE on 11/22/181320 Last Action: Reviewed Carboxymethylcellulose Sodium (Refresh Tears) 15 Ml Drops, 1 DROP OD BID, (Reported) Entered as Reported by: CATHERINE WALKER on 03/14/21 1117 Last Action: Reviewed Carvedilol (Carvedilol) 6.25 Mg Tablet, 6.25 MG PO BID, (Reported) Entered as Reported by: LISA GEE on 11/22/181320 Last Action: Reviewed Cholecalciferol (Vitamin D3) (Vitamin D3) 25 Mcg Capsule, 25 MCG PO HS, (Reported) Entered as Reported by: CATHERINE WALKER on 05/18/201106 Last Action: Reviewed Diphenhydramine HCl (Allergy Relief) 25 Mg Capsule, 25 MG PO HS PRN for ALLERGIES, (Reported) Entered as Reported by: LISA GEE on 11/22/181320 Last Action: Reviewed Fluticasone Propion/Salmeterol (Fluticasone-Salmeterol 100-50) 1 Each Blst.w.dev, 1 PUFF INH BID, (Reported) Entered as Reported by: CATHERINE WALKER on 05/18/201106 Last Action: Reviewed Fluticasone Propionate (Flonase Allergy Relief) 9.9 Ml Stevinson.susp, 1 SPRAY NS HS PRN for CONGESTION, (Reported) Entered as Reported by: LISA GEE on 11/22/181320 Last Action: Reviewed Folic Acid/Vitamin B Comp W-C (Super B-Complex Folic-Vit C Tb) 400 Mcg Tablet, 400 MCG PO DAILY Prescribed by: CHIDI BERGER on 05/18/21 1638 Last Action: Reviewed Furosemide (Furosemide) 20 Mg Tablet, 20 MG PO DAILY, (Reported) Entered as Reported by: LISA GEE on 11/22/181320 Last Action: Reviewed Magnesium Oxide (Magnesium Oxide) 250 Mg Tablet, 250 MG PO DAILY, (Reported) Entered as Reported by: CATHERINE WALKER on 05/18/20 111 Last Action: Reviewed Methotrexate Sodium (Methotrexate) 2.5 Mg Tablet, 10 MG PO THURS, (Reported) Entered as Reported by: LISA GEE on 11/25/18 0830 Last Action: Reviewed [place]-3/Dha/Epa/Dpa/Fish Oil ([place]-3 2100 Softgel) 1 Each Capsule, 1 EACH PO HS, (Reported) Entered as Reported by: CATHERINE WALKER on 05/18/201106 Last Action: Reviewed Omeprazole (Omeprazole) 40 Mg Capsule.dr, 40 MG PO DAILY, (Reported) Entered as Reported by: LISA GEE on 11/22/181320 Last Action: Reviewed Pedi Mv No.79/Ferrous Fumarate (Flintstones with Iron Tab Chew) 18 Mg Tab.chew, 18 MG PO HS, (Reported) Entered as Reported by: LISA GEE on 11/22/181320 Last Action: Reviewed Prednisone (Prednisone) 5 Mg Tablet, 5 MG PO DAILY, (Reported) Entered as Reported by: LISA GEE on 11/22/181320 Last Action: Reviewed Tamsulosin HCl (Flomax) 0.4 Mg Cap, 0.4 MG PO DAILY, (Reported) Entered as Reported by: CATHERINE WALKER on 05/18/20 110 Last Action: Reviewed Vit C/E/Zn/Coppr/Lutein/Zeaxan (Preservision Areds 2 Softgel) 1 Each Capsule, 1 EACH PO HS, (Reported) Entered as Reported by: CATHERINE WALKER on 03/14/21 111 Last Action: Reviewed Zinc Amino Acid Chelate (Zinc) 50 Mg Tablet, 50 MG PO DAILY, (Reported) Entered as Reported by: LISA GEE on 11/22/181320 Last Action: Reviewed [Jessy's Leg Cramps] , 1 TAB SL HS PRN for CRAMPS, (Reported) Entered as Reported by: LISA GEE on 11/22/181320 Last Action: Reviewed Discontinued Medications Iron Polysaccharide Complex (Ferrex 150) 150 Mg Capsule, 150 MG PO HS, (Reported) Discontinued Reason: No Longer Taking Entered as Reported by: CATHERINE WALKER on 03/14/211116 Last Action: Discontinued Past Glhrvii-Vkcyyn-Zliyat Hx Patient Social History Tobacco Use?: No Smoking Status: Former Smoker Substance use?: No Alcohol Use?: No Pt feels they are or have been: No Immunizations Up To Date Date of Influenza Vaccine: Dec 17, 2020 First/Initial COVID19 Vaccinat: MAY 2020 Second COVID19 Vaccination Adalid: JUNE 2020 Tetanus Booster (TDap): More Than 5 Years Hepatitis A: No Hepatitis B: No Date of Pneumonia Vaccine: Nov 17, 2010 Seasonal Allergies Seasonal Allergies: Yes Current Status Advance Directives: No Communicates: Verbally Primary Language: Azeri Preferred Spoken Language: Azeri Is interpretation needed?: No Implanted or Applied Medical D: None Past Medical History Surgeries: Orthopedic, Prostatectomy Sleep Apnea, COPD Currently Using CPAP: Yes Currently Using BIPAP: No Atrial Fibrillation, Chronic Edema/Swelling, Coronary Artery Disease, Heart Murmur, High Cholesterol, Hypertension, Valvular Heart Disease Benign Prostatic Hyperpl, Renal Failure Gastroesophageal Reflux Arthritis, Gout Cataract Loss of Vision: Denies Hearing Impairment: Denies, Bilateral Hearing Aide Prostate, Lymphoma Did You Recieve Any Treatments: Yes What Type of Treatment Did You: Radiation Blood Disorders: Yes Adverse Reaction/Blood Tranf: Yes (THINKS HE HAS HAD A RXN, BUT UNSURE WHAT) Family Medical History Cardiovascular disease 19 MOTHER Diabetes mellitus 19 MOTHER FH: prostate cancer G8 BROTHER Myocardial infarction 19 FATHER No Pertinent Family Hx Review of Systems Constitutional: No chills, No diaphoresis, No fever Respiratory: cough, hemoptysis, short of breath Cardiovascular: No chest pain Gastrointestinal: No diarrhea, No nausea, No vomiting Physical Exam Vital Signs Vital Signs - First Documented Capillary Refill : Less Than 3 Seconds Height, Weight, BMI Height: 5'6.00" Weight: 173lbs. 6.4oz. 78.170934oz; 27.00 BMI Method: General Appearance: No Apparent Distress, Obese HEENT: PERRL/EOMI Neck: Normal Inspection, Supple Respiratory: Decreased Breath Sounds (b/l), Wheezing (b/l) Cardiovascular: Systolic Murmur, Tachycardia Gastrointestinal: Normal Bowel Sounds, Non Tender, Soft Back: Normal Inspection Extremity: Normal Inspection Neurologic/Psychiatric: Alert, Oriented x3, Normal Mood/Affect Skin: Normal Color, Warm/Dry Assessment/Plan Assessment and Plan PNEUMONIA W/SEPTIC SHOCK LACTIC ACIDOSIS HEMOPTYSIS -Received Cefepime and Levo in ER. Will switch to Zosyn. -Lactic Acid 4.7 -Not receiving IV Fluids due to CHF -CXR/CT angio showed bilateral edema vs pneumonitis. Negative for PE -Waiting on sputum/blood culture results -Procalcitonin negative ACUTE RESPIRATORY FAILURE -Receiving 6L O2 via nasal cannula currently, will use BiPAP as needed. CHF NSTEMI -NSTEMI was likely secondary to the pneumonia -Trending Troponins -BNP 555.3 -Cardiology consult -Minimal fluids CHRISTOPHER ON CKD -Creatinine 1.54 CHRONIC AFIB -Usually takes Eliquis. Will hold for now due to hemoptysis and because he may need a bronchoscopy. LALITHA JACK MD 05/18/21 2019: History of Present Illness History of Present Illness Time Seen by a Provider: 17:50 Allergies and Home Medications Allergies Coded Allergies: vancomycin (Verified Allergy, Severe, 05/28/19) Pt states his face got really red and he went into ER for reaction. gemfibrozil (Verified Allergy, Unknown, 05/27/19) valdecoxib (Verified Allergy, Unknown, 05/27/19) Patient Home Medication List Home Medication List Reviewed: Yes Allopurinol (Allopurinol) 300 Mg Tablet, 300 MG PO DAILY, (Reported) Entered as Reported by: LISA GEE on 11/22/181320 Last Action: Reviewed Apixaban (Eliquis) 2.5 Mg Tablet, 2.5 MG PO BID, (Reported) Entered as Reported by: LISA GEE on 11/22/181320 Last Action: Reviewed Atorvastatin Calcium (Atorvastatin Calcium) 40 Mg Tablet, 40 MG PO DAILY, (Rep orted) Entered as Reported by: LISA GEE on 11/22/181320 Last Action: Reviewed Carboxymethylcellulose Sodium (Refresh Tears) 15 Ml Drops, 1 DROP OD BID, (Reported) Entered as Reported by: CATHERINE WALKER on 03/14/211116 Last Action: Reviewed Carvedilol (Carvedilol) 6.25 Mg Tablet, 6.25 MG PO BID, (Reported) Entered as Reported by: LISA GEE on 11/22/181320 Last Action: Reviewed Cholecalciferol (Vitamin D3) (Vitamin D3) 25 Mcg Capsule, 25 MCG PO HS, (Reported) Entered as Reported by: CATHERINE WALKER on 05/18/201106 Last Action: Reviewed Diphenhydramine HCl (Allergy Relief) 25 Mg Capsule, 25 MG PO HS PRN for ALLERGI ES, (Reported) Entered as Reported by: LISA GEE on 11/22/181320 Last Action: Reviewed Fluticasone Propion/Salmeterol (Fluticasone-Salmeterol 100-50) 1 Each Blst.w.dev, 1 PUFF INH BID, (Reported) Entered as Reported by: CATHERINE WALKER on 05/18/201106 Last Action: Reviewed Fluticasone Propionate (Flonase Allergy Relief) 9.9 Ml Stevinson.susp, 1 SPRAY NS HS PRN for CONGESTION, (Reported) Entered as Reported by: LISA GEE on 11/22/181320 Last Action: Reviewed Folic Acid/Vitamin B Comp W-C (Super B-Complex Folic-Vit C Tb) 400 Mcg Tablet, 400 MCG PO DAILY Prescribed by: CHIDI BERGER on 05/18/21 1638 Last Action: Reviewed Furosemide (Furosemide) 20 Mg Tablet, 20 MG PO DAILY, (Reported) Entered as Reported by: LISA GEE on 11/22/181320 Last Action: Reviewed Magnesium Oxide (Magnesium Oxide) 250 Mg Tablet, 250 MG PO DAILY, (Reported) Entered as Reported by: CATHERINE WALKER on 05/18/20 111 Last Action: Reviewed Methotrexate Sodium (Methotrexate) 2.5 Mg Tablet, 10 MG PO THURS, (Reported) Entered as Reported by: LISA GEE on 11/25/18 0830 Last Action: Reviewed [place]-3/Dha/Epa/Dpa/Fish Oil ([place]-3 2100 Softgel) 1 Each Capsule, 1 EACH PO HS, (Reported) Entered as Reported by: CATHERINE WALKER on 05/18/201106 Last Action: Reviewed Omeprazole (Omeprazole) 40 Mg Capsule.dr, 40 MG PO DAILY, (Reported) Entered as Reported by: LISA GEE on 11/22/181320 Last Action: Reviewed Pedi Mv No.79/Ferrous Fumarate (Flintstones with Iron Tab Chew) 18 Mg Tab.chew, 18 MG PO HS, (Reported) Entered as Reported by: LISA GEE on 11/22/181320 Last Action: Reviewed Prednisone (Prednisone) 5 Mg Tablet, 5 MG PO DAILY, (Reported) Entered as Reported by: LISA GEE on 11/22/181320 Last Action: Reviewed Tamsulosin HCl (Flomax) 0.4 Mg Cap, 0.4 MG PO DAILY, (Reported) Entered as Reported by: CATHERINE WALKER on 05/18/201106 Last Action: Reviewed Vit C/E/Zn/Coppr/Lutein/Zeaxan (Preservision Areds 2 Softgel) 1 Each Capsule, 1 EACH PO HS, (Reported) Entered as Reported by: CATHERINE WALKER on 03/14/21 111 Last Action: Reviewed Zinc Amino Acid Chelate (Zinc) 50 Mg Tablet, 50 MG PO DAILY, (Reported) Entered as Reported by: LISA GEE on 11/22/18 1321 Last Action: Reviewed [Jessy's Leg Cramps] , 1 TAB SL HS PRN for CRAMPS, (Reported) Entered as Reported by: LISA GEE on 11/22/18 1321 Last Action: Reviewed Discontinued Medications Iron Polysaccharide Complex (Ferrex 150) 150 Mg Capsule, 150 MG PO HS, (Reported) Discontinued Reason: No Longer Taking Entered as Reported by: CATHERINE WALKER on 03/14/21 1117 Last Action: Discontinued Past Mqtbiks-Otgnuk-Fsfgsz Hx Past Medical History Atrial Fibrillation Renal Failure Family Medical History Cardiovascular disease 19 MOTHER Diabetes mellitus 19 MOTHER FH: prostate cancer G8 BROTHER Myocardial infarction 19 FATHER Assessment/Plan Assessment and Plan Admitted with septic shock due to pneumonia. Also with respiratory failure and hemotysis, concern for possible pulmonary alveolar hemorrhage. Monitor closely in ICU. Problems: (1) Acute respiratory failure with hypoxia Status: Acute (2) Hemoptysis Status: Acute (3) Pneumonia Status: Acute Qualifiers: Qualified Codes: J18.9 - Pneumonia, unspecified organism (4) Septic shock Status: Acute (5) Atrial fibrillation Status: Chronic Admission Diagnosis Acute respiratory failure with hypoxia and hemptysis Admission Status: Inpatient Order (span 2 midnights) Reason for Inpatient Admission: Respiratory failure Supervisory-Addendum Brief Verification & Attestation Participated in pt care: history, MDM, physical Personally performed: exam, history, MDM, supervision of care Care discussed with: Medical Student Procedures: n/a Results interpretation: Verified all documentation A medical student performed and documented this service in my presence. I reviewed and verified all information documented by the medical student and made modifications to such information, when appropriate. I personally performed the physical exam and medical decision making. MIRTHA KNUTSON May 18, 2021 15:22 LALITHA JACK MD May 18, 2021 20:19
[2021-05-18] MEDS: NOREPINEPHRINE 8 MG/250 ML 250 ML IV SCH (15:54)
[2021-05-18] MEDS: VASOPRESSIN INJECTION 20 UNIT in NS (IVPB) 100 ML IV SCH (15:55)
--- NOTE | 2021-05-18 16:11 | Tele-ICU Consult ---
History of Present Illness History of Present Illness Date Seen by Provider: May 18, 2021 Time Seen by Provider: 15:11 Date of Admission Allergies and Home Medications Allergies Coded Allergies: vancomycin (Verified Allergy, Severe, 05/28/19) Pt states his face got really red and he went into ER for reaction. gemfibrozil (Verified Allergy, Unknown, 05/27/19) valdecoxib (Verified Allergy, Unknown, 05/27/19) Home Medications Allopurinol 300 Mg Tablet, 300 MG PO DAILY, (Reported) Apixaban 2.5 Mg Tablet, 2.5 MG PO BID, (Reported) Atorvastatin Calcium 40 Mg Tablet, 40 MG PO DAILY, (Reported) Carboxymethylcellulose Sodium 15 Ml Drops, 1 DROP OD BID, (Reported) Carvedilol 6.25 Mg Tablet, 6.25 MG PO BID, (Reported) Cholecalciferol (Vitamin D3) 25 Mcg Capsule, 25 MCG PO HS, (Reported) Diphenhydramine HCl 25 Mg Capsule, 25 MG PO HS PRN for ALLERGIES, (Reported) Fluticasone Propion/Salmeterol 1 Each Blst.w.dev, 1 PUFF INH BID, (Reported) Fluticasone Propionate 9.9 Ml Wren.susp, 1 SPRAY NS HS PRN for CONGESTION, (Reported) Furosemide 20 Mg Tablet, 20 MG PO DAILY, (Reported) Iron Polysaccharide Complex 150 Mg Capsule, 150 MG PO HS, (Reported) Magnesium Oxide 250 Mg Tablet, 250 MG PO DAILY, (Reported) Methotrexate Sodium 2.5 Mg Tablet, 10 MG PO THURS, (Reported) TAKES 4 (2.5MG) TABLETS [place]-3/Dha/Epa/Dpa/Fish Oil 1 Each Capsule, 1 EACH PO HS, (Reported) Omeprazole 40 Mg Capsule.dr, 40 MG PO DAILY, (Reported) Pedi Mv No.79/Ferrous Fumarate 18 Mg Tab.chew, 18 MG PO HS, (Reported) Prednisone 5 Mg Tablet, 5 MG PO DAILY, (Reported) Tamsulosin HCl 0.4 Mg Cap, 0.4 MG PO DAILY, (Reported) Vit C/E/Zn/Coppr/Lutein/Zeaxan 1 Each Capsule, 1 EACH PO HS, (Reported) Zinc Amino Acid Chelate 50 Mg Tablet, 50 MG PO DAILY, (Reported) [Jessy's Leg Cramps] , 1 TAB SL HS PRN for CRAMPS, (Reported) Past Medical/Social/Family Hx Patient Social History Tobacco Use?: No Smoking Status: Former Smoker Substance use?: No Alcohol Use?: No Pt stated abuse/neglect: Yes Immunizations Up To Date Influenza Vaccine Up-to-Date: Yes; Up-to-Date First/Initial COVID19 Vaccinat: MAY 2020 Second COVID19 Vaccination Adalid: JUNE 2020 Tetanus Booster (TDap): More Than 5 Years Hepatitis A: No Hepatitis B: No Date of Pneumonia Vaccine: Nov 17, 2010 Current Status Advance Directives: Yes Advance Directive Location: Family to bring in copy Communicates: Verbally Primary Language: Sri Lankan Preferred Spoken Language: [place] Lankan Is interpretation needed?: No Sensory deficits: Hearing impairment Implanted or Applied Medical D: None Review of Systems Constitutional: see HPI Focused Exam Lactate Level 05/18/21 08:30: Lactic Acid Level 4.70*H 05/18/21 12:00: Lactic Acid Level 2.46*H 05/18/21 13:50: Lactic Acid Level 1.85 Height, Weight, BMI Height: 5'6.00" Weight: 173lbs. 6.4oz. 78.907091uc; 28.51 BMI Method: Lactic Acid Level Laboratory Tests Test 05/18/21 13:50 Lactic Acid Level 1.85 MMOL/L (0.50-2.00) Exam Exam Patient acknowledged, consented, and participated in this virtual visit which was conducted using real time audio/video Vital Signs Date Time Temp Pulse Resp B/P (MAP) Pulse Ox O2 Delivery O2 Flow Rate FiO2 05/18/21 16:02 NIV Bilevel 50.00 05/18/21 14:39 94 High Flow N/C 6.00 05/18/21 14:33 37.5 97 29 118/64 95 Nasal Cannula 6.00 05/18/21 13:55 92 18 108/67 94 NIV Bilevel 05/18/21 11:20 114 24 99 100.00 05/18/21 09:55 96 Nasal Cannula 4.00 05/18/21 08:46 94 Nasal Cannula 4.00 05/18/21 08:46 36.9 109 37 144/96 (112) 91 Nasal Cannula 4.00 Height & Weight Height: 5'6.00" Weight: 173lbs. 6.4oz. 78.254623ar; 28.51 BMI Method: General Appearance: No Apparent Distress, Obese HEENT: PERRL/EOMI Neck: Normal Inspection, Supple Respiratory: Decreased Breath Sounds (b/l), Wheezing (b/l) Cardiovascular: Systolic Murmur, Tachycardia Capillary Refill: Less Than 3 Seconds Extremity: Normal Inspection Neurologic/Psychiatric: Alert, Oriented x3, Normal Mood/Affect Skin: Normal Color, Warm/Dry Results Lab Laboratory Tests 05/18/21 08:30 Assessment/Plan Assessment/Plan (Tele-ICU Physician , consultation) Available chart/ vitals / labs / Images reviewed H&P is from ER notes Patient's information available about PMH, Shx, Fhx allergy reviewed in EMR. ROS as per chart and RN report Now in ICU, hemodynamically stable Video assessment done using teleICU camera, rest of exam as per RN Discussed with RN. Consultants: Hospital course: 05/18 - hemoptysis , BIPAP, shock A/P Acute hypoxic resp failure + HEMOPTYSIS ( ? PNA , ? alveolar hemorrhage, ? 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 Discussed with RN to reach out if any questions or concerns A total of 33 minutes of critical care time was devoted to this patient today, required to treat and/or prevent further deterioration of critical care condition ( as above ) . RASTA CAMPOS MD May 18, 2021 16:11
[2021-05-18] MEDS ORDERED: FOLI400T4 PO (16:38)
[2021-05-18] MEDS: CEFEPIME INJECTION 1,000 MG in NS (IVPB) 50 ML IV SCH (18:32)
[2021-05-18] MEDS: TRANEXAMIC ACID 100 MG/ML 10 ML INJECTION SCH (19:03)
[2021-05-18] MEDS: CATHETER FLUSH 10 ML SYR IV SCH (21:21)
[2021-05-19] MEDS: CEFEPIME INJECTION 1,000 MG in NS (IVPB) 50 ML IV SCH (02:09)
[2021-05-19] MEDS: VASOPRESSIN INJECTION 20 UNIT in NS (IVPB) 100 ML IV SCH ×3 (02:09→23:58)
[2021-05-19] MEDS: TRANEXAMIC ACID 100 MG/ML 10 ML INJECTION SCH ×2 (02:33→10:47)
[2021-05-19 04:53] LABS: BASOPHILS % (AUTO) 0 % (0-10); EOSINOPHILS # (AUTO) 0.1 10^3/uL (0.0-0.3); EOSINOPHILS % (AUTO) 1 % (0-10); HEMATOCRIT 35 % (40-54); HEMOGLOBIN 11.9 g/dL (13.3-17.7); LYMPHOCYTES # (AUTO) 2.6 10^3/uL (1.0-4.0); LYMPHOCYTES % (AUTO) 16 % (12-44); MEAN CORPUSCULAR HEMOGLOBIN 35 pg (25-34); MEAN CORPUSCULAR HGB CONC 34 g/dL (32-36); MEAN CORPUSCULAR VOLUME 103 fL (80-99); MEAN PLATELET VOLUME 11.1 fL (9.0-12.2); MONOCYTES # (AUTO) 1.3 10^3/uL (0.0-1.0); MONOCYTES % (AUTO) 8 % (0-12); NEUTROPHILS # (AUTO) 12.9 10^3/uL (1.8-7.8); NEUTROPHILS % (AUTO) 76 % (42-75); PLATELET COUNT 125 10^3/uL (130-400); WHITE BLOOD COUNT 17.1 10^3/uL (4.3-11.0)
[2021-05-19 05:03] LABS: POTASSIUM 3.5 MMOL/L (3.6-5.0)
[2021-05-19 05:09] LABS: CREATININE SERUM 1.58 MG/DL (0.60-1.30); PHOSPHORUS 3.4 MG/DL (2.3-4.7)
[2021-05-19 05:11] LABS: MAGNESIUM 1.6 MG/DL (1.6-2.4)
[2021-05-19] MEDS: MAGNESIUM 1 GM/100 ML IVPB 100 ML IV SCH ×3 (06:22→07:25)
[2021-05-19] MEDS: CATHETER FLUSH 10 ML SYR IV SCH ×3 (06:22→20:27)
[2021-05-19] MEDS: KCL 20 MEQ TAB (K-DUR) PO SCH (06:22)
[2021-05-19] MEDS: POTASSIUM CL 10MEQ/50ML IVPB 50 ML IV SCH ×3 (06:22→07:25)
[2021-05-19] MEDS: NOREPINEPHRINE 8 MG/250 ML 250 ML IV SCH (07:40)
--- NOTE | 2021-05-19 07:43 | Diagnostic Imaging Report ---
INDICATION: Pneumonia, follow-up. TECHNIQUE: Single view chest 4:58 AM. CORRELATION STUDY: 05/18/2021 FINDINGS: Scattered bilateral pulmonary infiltrate-like opacities particularly in the right mid and lower lung field as well as in the left midlung field persisting. Overall may be slightly increased on the right and perhaps minimally less consolidated on the left. Heart size and mediastinum remain enlarged and prominent. Vasculature slightly increased. IMPRESSION: 1. Extensive multilobe pulmonary infiltrate-like opacities again demonstrated. Most pronounced central aspect of both lung robison. Perhaps slightly improved on the left but appearing slightly increased on the right. 2. Cardiac enlargement with component of pulmonary vascular congestion overall appears increased from prior. Dictated by: Dictated on workstation # [id number]
--- NOTE | 2021-05-19 08:04 | Consultation-Cardiology ---
HPI-Cardiology Cardiology Consultation: Date of Consultation 05/19/2021 Date of Admission 05/18/2021 Attending Physician Amina Yeboah MD Admitting Physician Villa Ramirez DO Consulting Physician JUSTO LOPEZ JR, MD HPI: Time Seen by a Provider: 08:20 Chief Complaint: Reason for consultation: Elevated troponin level and heart failure. I had the pleasure of seeing Maurisio in the intensive care unit at [facility] in [place], [place] this morning. He is known to me from the office. He has a history of aortic stenosis, chronic heart failure with preserved ejection fraction, paroxysmal atrial fibrillation, hypertension, hyperlipidemia, stage 3 chronic kidney disease, and chronic obstructive pulmonary disease. I just saw him in the office on Sunday for a routine follow-up visit. That morning he states that he had increasing dyspnea as well as some hemoptysis. By the time he arrived in my office, his shortness of breath was somewhat improved but not back to baseline. Because of these symptoms, I had him undergo a chest x-ray. This showed some patchy infiltrates in the right upper lobe and left base. By the time I received the report, the patient had already gone home. I had my nurse contact the patient and instructed him to make a follow-up appointment with his primary provider because I was concerned he could have ea rly signs of pneumonia. However, when he contacted his primary provider, he was told he could not be seen for 2 months. On Sunday he felt better but then yesterday he developed recurrent dyspnea at rest with hemoptysis and he came to the emergency room due to extreme shortness of breath. He was found to have hypoxia and was placed on BiPAP. Chest x-ray at that time again showed bilateral patchy infiltrates as well as some superimposed pulmonary edema. He was given intravenous furosemide and started on antibiotics and admitted to the intensive care unit. He was also found to have an elevated troponin level. Because of this constellation of clinical findings, a cardiology consultation was requested. This morning he states his breathing is better. He still has some minimal hemoptysis. He denies chest pain. He denies paroxysmal nocturnal dyspnea, orthopnea, palpitations, lightheadedness, syncope, or ankle edema. Certain portions of this document may have been dictated utilizing voice recognition technology. Inherent to this technology, typographical and grammatical errors may exist. As much as I am diligent to identify and correct these mistakes, some errors may remain in the document. Review of Systems-Cardiology Review of Systems Other comments Review of 10 organ systems is as per the history of present illness, otherwise negative. All Other Systems Reviewed Negative Unless Noted: Yes [id number] Hx Patient Social History Marrital Status: Employed/Student: retired Smoking Status: Former Smoker 2nd Hand Smoke Exposure: No Have you traveled recently?: No Alcohol Use?: No Pt feels they are or have been: Yes Immunizations Up To Date Tetanus Booster (TDap): Unknown Date of Pneumonia Vaccine: Nov 17, 2010 Date of Influenza Vaccine: Dec 17, 2020 Past Medical History PMH As described under Assessment. Family Medical History Family History: Cardiovascular disease 19 MOTHER Diabetes mellitus 19 MOTHER FH: prostate cancer G8 BROTHER Myocardial infarction 19 FATHER Allergies and Home Medications Allergies Coded Allergies: vancomycin (Verified Allergy, Severe, 05/28/19) Pt states his face got really red and he went into ER for reaction. gemfibrozil (Verified Allergy, Unknown, 05/27/19) valdecoxib (Verified Allergy, Unknown, 05/27/19) Patient Home Medication List Home Medication List Reviewed: Yes Allopurinol (Allopurinol) 300 Mg Tablet, 300 MG PO DAILY, (Reported) Entered as Reported by: LISA GEE on 11/22/181320 Last Action: Reviewed Apixaban (Eliquis) 2.5 Mg Tablet, 2.5 MG PO BID, (Reported) Entered as Reported by: LISA GEE on 11/22/181320 Last Action: Reviewed Atorvastatin Calcium (Atorvastatin Calcium) 40 Mg Tablet, 40 MG PO DAILY, (Reported) Entered as Reported by: LISA GEE on 11/22/181320 Last Action: Reviewed Carboxymethylcellulose Sodium (Refresh Tears) 15 Ml Drops, 1 DROP OD BID, (R eported) Entered as Reported by: CATHERINE WALKER on 03/14/21 111 Last Action: Reviewed Carvedilol (Carvedilol) 6.25 Mg Tablet, 6.25 MG PO BID, (Reported) Entered as Reported by: LISA GEE on 11/22/181320 Last Action: Reviewed Cholecalciferol (Vitamin D3) (Vitamin D3) 25 Mcg Capsule, 25 MCG PO HS, (Repor joyce) Entered as Reported by: CATHERINE WALKER on 05/18/201106 Last Action: Reviewed Diphenhydramine HCl (Allergy Relief) 25 Mg Capsule, 25 MG PO HS PRN for ALLERGIES, (Reported) Entered as Reported by: LISA GEE on 11/22/181320 Last Action: Reviewed Fluticasone Propion/Salmeterol (Fluticasone-Salmeterol 100-50) 1 Each Blst.w.dev, 1 PUFF INH BID, (Reported) Entered as Reported by: CATHERINE WALKER on 05/18/201106 Last Action: Reviewed Fluticasone Propionate (Flonase Allergy Relief) 9.9 Ml [place].susp, 1 SPRAY NS HS PRN for CONGESTION, (Reported) Entered as Reported by: LISA GEE on 11/22/181320 Last Action: Reviewed Folic Acid/Vitamin B Comp W-C (Super B-Complex Folic-Vit C Tb) 400 Mcg Tablet, 400 MCG PO DAILY Prescribed by: CHIDI BERGER on 05/18/21 1638 Last Action: Reviewed Furosemide (Furosemide) 20 Mg Tablet, 20 MG PO DAILY, (Reported) Entered as Reported by: LISA GEE on 11/22/181320 Last Action: Reviewed Magnesium Oxide (Magnesium Oxide) 250 Mg Tablet, 250 MG PO DAILY, (Reported) Entered as Reported by: CATHERINE WALKER on 05/18/20 111 Last Action: Reviewed Methotrexate Sodium (Methotrexate) 2.5 Mg Tablet, 10 MG PO THURS, (Reported) Entered as Reported by: LISA GEE on 11/25/18 0830 Last Action: Reviewed [place]field-3/Dha/Epa/Dpa/Fish Oil (Garfield-3 2100 Softgel) 1 Each Capsule, 1 EACH PO HS, (Reported) Entered as Reported by: CATHERINE WALKER on 05/18/20 110 Last Action: Reviewed Omeprazole (Omeprazole) 40 Mg Capsule.dr, 40 MG PO DAILY, (Reported) Entered as Reported by: LISA GEE on 11/22/181320 Last Action: Reviewed Pedi Mv No.79/Ferrous Fumarate (Flintstones with Iron Tab Chew) 18 Mg Tab.chew, 18 MG PO HS, (Reported) Entered as Reported by: LISA GEE on 11/22/181320 Last Action: Reviewed Prednisone (Prednisone) 5 Mg Tablet, 5 MG PO DAILY, (Reported) Entered as Reported by: LIAS GEE on 11/22/181320 Last Action: Reviewed Tamsulosin HCl (Flomax) 0.4 Mg Cap, 0.4 MG PO DAILY, (Reported) Entered as Reported by: CATHERINE WALKER on 05/18/20 1107 Last Action: Reviewed Vit C/E/Zn/Coppr/Lutein/Zeaxan (Preservision Areds 2 Softgel) 1 Each Capsule, 1 EACH PO HS, (Reported) Entered as Reported by: CATHERINE WALKER on 03/14/211116 Last Action: Reviewed Zinc Amino Acid Chelate (Zinc) 50 Mg Tablet, 50 MG PO DAILY, (Reported) Entered as Reported by: LISA GEE on 11/22/181320 Last Action: Reviewed [Jessy's Leg Cramps] , 1 TAB SL HS PRN for CRAMPS, (Reported) Entered as Reported by: LISA GEE on 11/22/181320 Last Action: Reviewed Discontinued Medications Iron Polysaccharide Complex (Ferrex 150) 150 Mg Capsule, 150 MG PO HS, (Reported) Discontinued Reason: No Longer Taking Entered as Reported by: CATHERINE WALKER on 03/14/211116 Last Action: Discontinued Exam Vital Signs Vital Signs Date Time Temp Pulse Resp B/P (MAP) Pulse Ox O2 Delivery O2 Flow Rate FiO2 05/19/21 07:27 36.9 05/19/21 06:00 86 23 115/61 94 High Flow N/C 6.00 Physical Exam General: Alert. No acute distress. Well nourished and appears stated age. Eye: Extraocular movements are intact. Conjunctivae are clear. There are no xanthelasma. HENT: Normocephalic. Atraumatic. Carotid pulsations 2/2 without bruits. Neck: Jugular venous pressure does not appear elevated. No thyromegaly appreciated. Respiratory: Lungs have bibasilar crackles with some scattered wheezes. Respirations are non-labored. Breath sounds are equal. Symmetrical chest wall expansion. Cardiovascular: Normal rate. Regular rhythm. Distant S1/S2. 3/6 systolic ejection murmur. No gallop. Point of maximal impulse is not appear displaced. Good pulses equal in all extremities. No edema. Gastrointestinal: Soft. Normal bowel sounds. Skin: Skin turgor is normal. There is no pallor. Musculoskeletal: No kyphosis or scoliosis appreciated. Neurologic: Alert and oriented to person, place, time. Cranial nerves 3-12 appear grossly intact. The patient has good motor tone strength in the upper and lower extremities bilaterally. Psychiatric: Cooperative. Appropriate mood & affect. Labs Laboratory Tests Test 05/18/21 08:30 05/18/21 08:40 05/18/21 08:44 05/18/21 09:28 Range/Units White Blood Count 15.8 H 4.3-11.0 10^3/uL Red Blood Count 4.13 L 4.30-5.52 10^6/uL Hemoglobin 14.4 13.3-17.7 g/dL Hematocrit 43 40-54 % Mean Corpuscular Volume 104 H 80-99 fL Mean Corpuscular Hemoglobin 35 H 25-34 pg Mean Corpuscular Hemoglobin Concent 34 32-36 g/dL Red Cell Distribution Width 14.8 H 10.0-14.5 % Platelet Count 160 130-400 10^3/uL Mean Platelet Volume 10.8 9.0-12.2 fL Immature Granulocyte % (Auto) 0 % Neutrophils (%) (Auto) 73 42-75 % Lymphocytes (%) (Auto) 20 12-44 % Monocytes (%) (Auto) 5 0-12 % Eosinophils (%) (Auto) 1 0-10 % Basophils (%) (Auto) 0 0-10 % Neutrophils # (Auto) 11.6 H 1.8-7.8 10^3/uL Lymphocytes # (Auto) 3.1 1.0-4.0 10^3/uL Monocytes # (Auto) 0.8 0.0-1.0 10^3/uL Eosinophils # (Auto) 0.2 0.0-0.3 10^3/uL Basophils # (Auto) 0.0 0.0-0.1 10^3/uL Immature Granulocyte # (Auto) 0.1 0.0-0.1 10^3/uL Neutrophils % (Manual) 76 % Lymphocytes % (Manual) 19 % Monocytes % (Manual) 4 % Eosinophils % (Manual) 1 % Anisocytosis SLIGHT Prothrombin Time 15.0 H 12.2-14.7 SEC INR Comment 1.1 0.8-1.4 Activated Partial Thromboplast Time 26 24-35 SEC D-Dimer 0.79 H 0.00-0.49 UG/ML Sodium Level 139 135-145 MMOL/L Potassium Level 4.1 3.6-5.0 MMOL/L Chloride Level 102 98-107 MMOL/L Carbon Dioxide Level 20 L 21-32 MMOL/L Anion Gap 17 H 5-14 MMOL/L Blood Urea Nitrogen 24 H 7-18 MG/DL Creatinine 1.54 H 0.60-1.30 MG/DL Estimat Glomerular Filtration Rate 44 BUN/Creatinine Ratio 16 Glucose Level 182 H 70-105 MG/DL Lactic Acid Level 4.70 *H 0.50-2.00 MMOL/L Calcium Level 10.0 8.5-10.1 MG/DL Corrected Calcium 10.1 8.5-10.1 MG/DL Total Bilirubin 1.2 H 0.1-1.0 MG/DL Aspartate Amino Transf (AST/SGOT) 27 5-34 U/L Alanine Aminotransferase (ALT/SGPT) 23 0-55 U/L Alkaline Phosphatase 82 40-136 U/L Troponin I 0.808 *H <0.028 NG/ML C-Reactive Protein High Sensitivity 1.19 H 0.00-0.50 MG/DL B-Type Natriuretic Peptide 555.3 H <100.0 PG/ML Total Protein 7.0 6.4-8.2 GM/DL Albumin 3.9 3.2-4.5 GM/DL Procalcitonin 0.05 <0.10 NG/ML Blood Gas Puncture Site NA Blood Gas Patient Temperature 37 Arterial Blood pH 7.44 H 7.37-7.43 Arterial Blood Partial Pressure CO2 30 L 35-45 MMHG Arterial Blood Partial Pressure O2 64 L 79-93 MMHG Arterial Blood HCO3 21 L 23-27 MMOL/L Arterial Blood Total CO2 21.5 21.0-31.0 MMOL/L Arterial Blood Oxygen Saturation 93 L 94-100 % Arterial Blood Base Excess -2.9 L -2.5-2.5 MMOL/L David Test YES-POS Blood Gas Ventilator Setting NO Blood Gas Inspired Oxygen 2 L Influenza Type A (RT-PCR) Not Detected Not Detecte Influenza Type B (RT-PCR) Not Detected Not Detecte SARS-CoV-2 RNA (RT-PCR) Not Detected Not Detecte Urine Color YELLOW Urine Clarity SL CLOUDY Urine pH 6.0 5-9 Urine Specific [place] 1.025 H 1.016-1.022 Urine Protein TRACE H NEGATIVE Urine Glucose (UA) NEGATIVE NEGATIVE Urine Ketones NEGATIVE NEGATIVE Urine Nitrite NEGATIVE NEGATIVE Urine Bilirubin NEGATIVE NEGATIVE Urine Urobilinogen 1.0 < = 1.0 MG/DL Urine Leukocyte Esterase NEGATIVE NEGATIVE Urine RBC (Auto) NEGATIVE NEGATIVE Urine RBC 0-2 /HPF Urine WBC RARE /HPF Urine Squamous Epithelial Cells 0-2 /HPF Urine Crystals NONE /LPF Urine Bacteria NEGATIVE /HPF Urine Casts PRESENT /LPF Urine Hyaline Casts 0-2 H /LPF Urine Mucus NEGATIVE /LPF Urine Culture Indicated CULTURE PENDING Test 05/18/21 09:38 05/18/21 12:00 05/18/21 13:50 05/18/21 15:33 Range/Units Urine Legionella pneumophilia Ag Negative Streptococcus pneumoniae Antigen Negative Lactic Acid Level 2.46 *H 1.85 0.50-2.00 MMOL/L Troponin I 1.027 *H <0.028 NG/ML Test 05/19/21 04:45 Range/Units White Blood Count 17.1 H 4.3-11.0 10^3/uL Red Blood Count 3.43 L 4.30-5.52 10^6/uL Hemoglobin 11.9 L 13.3-17.7 g/dL Hematocrit 35 L 40-54 % Mean Corpuscular Volume 103 H 80-99 fL Mean Corpuscular Hemoglobin 35 H 25-34 pg Mean Corpuscular Hemoglobin Concent 34 32-36 g/dL Red Cell Distribution Width 15.0 H 10.0-14.5 % Platelet Count 125 L 130-400 10^3/uL Mean Platelet Volume 11.1 9.0-12.2 fL Immature Granulocyte % (Auto) 1 % Neutrophils (%) (Auto) 76 H 42-75 % Lymphocytes (%) (Auto) 16 12-44 % Monocytes (%) (Auto) 8 0-12 % Eosinophils (%) (Auto) 1 0-10 % Basophils (%) (Auto) 0 0-10 % Neutrophils # (Auto) 12.9 H 1.8-7.8 10^3/uL Lymphocytes # (Auto) 2.6 1.0-4.0 10^3/uL Monocytes # (Auto) 1.3 H 0.0-1.0 10^3/uL Eosinophils # (Auto) 0.1 0.0-0.3 10^3/uL Basophils # (Auto) 0.0 0.0-0.1 10^3/uL Immature Granulocyte # (Auto) 0.1 0.0-0.1 10^3/uL Sodium Level 137 135-145 MMOL/L Potassium Level 3.5 L 3.6-5.0 MMOL/L Chloride Level 107 98-107 MMOL/L Carbon Dioxide Level 18 L 21-32 MMOL/L Anion Gap 12 5-14 MMOL/L Blood Urea Nitrogen 26 H 7-18 MG/DL Creatinine 1.58 H 0.60-1.30 MG/DL Estimat Glomerular Filtration Rate 42 BUN/Creatinine Ratio 16 Glucose Level 118 H 70-105 MG/DL Calcium Level 9.0 8.5-10.1 MG/DL Phosphorus Level 3.4 2.3-4.7 MG/DL Magnesium Level 1.6 1.6-2.4 MG/DL Troponin I 1.002 *H <0.028 NG/ML Radiology PERTINENT TEST RESULTS (reviewed during this visit): 2 VIEW CHEST X-RAY (05/16/2021): 1. Patchy bilateral infiltrates. ELECTROCARDIOGRAM (05/16/2021): Sinus rhythm with left anterior hemiblock, right bundle branch block and left ventricular hypertrophy with repolarization abnormality. ELECTROCARDIOGRAM (04/12/2021): Sinus rhythm with one isolated premature ventricular complex, left anterior hemiblock, right bundle branch block and probable left ventricular hypertrophy. LABS (04/06/2021): Sodium 138. Potassium 3.4. Glucose 120. Creatinine 1.54. GFR 43. LABS (03/29/2021): Sodium 140. Potassium 3.7. Creatinine 1.3. GFR 52. 2 VIEW CHEST X-RAY (03/29/2021): 1. Improving changes of congestive failure when compared to study from 03/13/2021. ELECTROCARDIOGRAM (03/29/2021): Sinus rhythm with left ventricular hypertrophy and left anterior hemiblock. LABS (03/15/2021): Sodium 138. Potassium 3.6. Creatinine 1.25. GFR 55. Glucose 116. Hemoglobin 12.7. Platelets 147,000. CARDIAC CATHETERIZATION (03/14/2021): 1. Normal left heart pressures with approximately a 20 mmHg pressure gradient upon pullback across aortic valve which is consistent with the aortic stenosis the patient is known to have by echocardiogram. 2. Angiographically normal-appearing coronary arteries in a right dominant system. 3. The patient is known to have normal left ventricular systolic function with an estimated ejection fraction of 55-60% by echocardiogram performed earlier today. 5. In light of these findings, the patient may have had a type II non-ST elevation myocardial infarction related to supply/demand mismatch from the extreme tachycardia that occurred last evening when he was in atrial fibrillation. ECHOCARDIOGRAM (03/14/2021): 1. This is a technically difficult study due to poor image quality secondary to patient's body habitus. 2. Normal left ventricular chamber size, wall thickness and systolic function with an estimated ejection fraction of 55-60%. Regional wall motion abnormalities cannot be excluded due to poor endocardial definition. 3. The left ventricular diastolic parameters are consistent with grade 2 jose stolic dysfunction. 4. The right ventricle is normal in size with mildly reduced function. TAPSE 1.4 cm. 5. The left atrium is moderately dilated with a volume index of 46 mL/m. 6. There is mild mitral annular calcification. 7. There is mild mitral regurgitation. 8. There is moderate aortic stenosis with a mean gradient of 30 mmHg, a peak gradient of 54 mmHg, a peak velocity of 3.7 m/s and a calculated aortic valve area of 0.9 cm. 9. The pulmonary artery pressure cannot be estimated on this study due to i nadequate tricuspid regurgitant envelope. LABS (03/14/2021): Troponin 3.065. Triglycerides 218. Total cholesterol 110. HDL 30. Direct LDL 48. CHEST 1 VIEW PA ONLY (03/13/2021): 1. Findings most likely reflects extensive pulmonary edema with cardiomegaly and vascular congestion. ELECTROCARDIOGRAM (03/13/2021): Sinus rhythm with left anterior hemiblock, right bundle branch block and left ventricular hypertrophy with repolarization abnormality. ELECTROCARDIOGRAM (03/13/2021): Wide complex tachycardia, probably atrial fibrillation with a ventricular rate of 179 bpm with left anterior hemiblock and right bundle branch block. ECG Impression ECG Comment Electrocardiogram from the emergency room [place] sinus tachycardia 106 bpm with right bundle branch block, left anterior hemiblock and left ventricular hypertrophy with repolarization abnormality. No new findings. Diagnosis/Problems Diagnosis/Problems (1) Acute on chronic heart failure with preserved ejection fraction Assessment & Plan: His symptoms and clinical findings are consistent with some component of decompensated heart failure. His breathing is already improving following administration of intravenous furosemide. However, his chest x-ray appears worse today. I will start him on furosemide 40 mg IV daily. We will need to watch his renal function closely. (2) Troponin level elevated Assessment & Plan: He had a recent cardiac catheterization that showed angiographically normal appearing coronary arteries as outlined above. The prachi vated troponin level is a probable type II non-ST elevation myocardial infarction due to supply/demand mismatch. Once his hemoptysis improves, we will get him back on his oral anticoagulation for atrial fibrillation. No aspirin since he is on a DOAC for atrial fibrillation. (3) Paroxysmal atrial fibrillation Assessment & Plan: He remains in sinus rhythm and sinus tachycardia. Once his hemoptysis improves, we can resume his apixaban. He was on the renal adjusted do se due to age over 80 and creatinine that usually hovers just above 1.5. (4) Aortic stenosis Assessment & Plan: He has moderate aortic stenosis. This should not be causing symptoms but will need to be followed longitudinally. (5) Acute respiratory failure with hypoxemia Status: Acute Assessment & Plan: Most likely multifactorial due to pneumonia and heart failure. Symptomatically he is improved but chest x-ray appears worse. As above, I will start him on a daily dose of intravenous Lasix. (6) Primary hypertension Assessment & Plan: He was on carvedilol at home. This is presently on hold due to pneumonia with sepsis. As his pneumonia and sepsis improved, we can resume his carvedilol. (7) Mixed hyperlipidemia Assessment & Plan: I have taken the liberty of reordering his outpatient dose of atorvastatin. (8) Stage 3 chronic kidney disease Assessment & Plan: His renal function appears to be remaining stable despite his current acute illness. We will need to monitor his renal function closely. JUSTO LOPEZ JR, MD May 19, 2021 08:04
[2021-05-19] MEDS: FUROSEMIDE 40 MG/4 ML INJ (LASIX) IVP SCH (09:01)
[2021-05-19] MEDS ORDERED: PIPERACILLIN SODIUM/TAZOBACTAM 4.5 GM in NS (IVPB) 100 ML IV ONE (09:30)
--- NOTE | 2021-05-19 10:24 | Progress Note ---
Subjective Subjective Date Seen by Provider: May 19, 2021 Time Seen by Provider: 08:00 Patient feeling well this morning and says his cough seems improved. Denies any SOA, nausea/vomiting, sweats/chills or chest pain. All Other Systems Reviewed All Other Systems Reviewed: Yes Objective Exam Vital Signs Vital Signs Date Time Temp Pulse Resp B/P (MAP) Pulse Ox O2 Delivery O2 Flow Rate FiO2 05/19/21 09:00 100 29 138/73 93 High Flow N/C 4.00 05/19/21 08:00 91 High Flow N/C 4.00 05/19/21 08:00 High Flow N/C 4.00 05/19/21 08:00 80 29 105/59 94 High Flow N/C 4.00 05/19/21 07:27 36.9 05/19/21 07:15 84 05/19/21 07:00 84 22 104/60 94 High Flow N/C 6.00 05/19/21 06:00 86 23 115/61 94 High Flow N/C 6.00 05/19/21 05:00 83 25 113/66 94 High Flow N/C 6.00 05/19/21 04:00 94 High Flow N/C 6.00 05/19/21 04:00 81 24 116/66 94 High Flow N/C 6.00 05/19/21 03:00 90 26 121/72 94 High Flow N/C 6.00 05/19/21 02:33 93 High Flow N/C 4.00 05/19/21 02:00 78 25 114/60 95 High Flow N/C 6.00 05/19/21 01:00 80 05/19/21 01:00 80 25 111/64 95 High Flow N/C 6.00 05/19/21 00:19 37.2 05/19/21 00:00 94 High Flow N/C 6.00 05/19/21 00:00 90 24 92/56 95 High Flow N/C 6.00 05/18/21 23:30 High Flow N/C 4.00 05/18/21 23:00 77 24 110/52 94 High Flow N/C 6.00 05/18/21 22:00 79 28 110/58 96 High Flow N/C 6.00 05/18/21 21:00 82 21 98/53 95 High Flow N/C 6.00 05/18/21 20:00 94 High Flow N/C 6.00 05/18/21 20:00 83 23 95/57 95 High Flow N/C 6.00 05/18/21 19:47 37.5 05/18/21 19:33 86 05/18/21 19:30 High Flow N/C 6.00 05/18/21 19:06 81 22 98 50.00 05/18/21 19:00 81 25 115/65 96 NIV Bilevel 50.00 05/18/21 18:00 82 18 107/72 96 NIV Bilevel 50.00 05/18/21 17:00 81 16 103/62 95 NIV Bilevel 50.00 05/18/21 16:02 NIV Bilevel 50.00 05/18/21 16:00 37.2 05/18/21 15:13 95 05/18/21 15:00 97 30 93/63 94 Nasal Cannula 6.00 05/18/21 14:39 94 High Flow N/C 6.00 05/18/21 14:33 37.5 97 29 118/64 95 Nasal Cannula 6.00 05/18/21 13:55 92 18 108/67 94 NIV Bilevel 05/18/21 11:20 114 24 99 100.00 I & O 05/19/21 06:59 Intake Total 2720 ml Output Total 650 ml Balance 2070 ml General Appearance: No Apparent Distress HEENT: PERRL/EOMI, TMs Normal, Normal ENT Inspection, Pharynx Normal, Moist Mucous Membranes Neck: Full Range of Motion, Normal Inspection, Non Tender Respiratory: Crackles, Decreased Breath Sounds Cardiovascular: Regular Rate, Rhythm, Normal Peripheral Pulses Gastrointestinal: Normal Bowel Sounds, Non Tender, Soft Back: Normal Inspection Extremity: Normal Capillary Refill, Normal Inspection, Normal Range of Motion, No Pedal Edema Neurologic/Psychiatric: Alert, Oriented x3, No Motor/Sensory Deficits Skin: Normal Color, Warm/Dry Results Lab Laboratory Tests 05/18/21 12:00: Lactic Acid Level 2.46*H 05/18/21 13:50: Lactic Acid Level 1.85 05/18/21 15:33: Troponin I 1.027*H 05/19/21 04:45: Troponin I 1.002*H, White Blood Count 17.1H, Red Blood Count 3.43L, Hemoglobin 11.9L, Hematocrit 35L, Mean Corpuscular Volume 103H, Mean Corpuscular Hemoglobin 35H, Mean Corpuscular Hemoglobin Concent 34, Red Cell Distribution Width 15.0H, Platelet Count 125L, Mean Platelet Volume 11.1, Immature Granulocyte % (Auto) 1, Neutrophils (%) (Auto) 76H, Lymphocytes (%) (Auto) 16, Monocytes (%) (Auto) 8, Eosinophils (%) (Auto) 1, Basophils (%) (Auto) 0, Neutrophils # (Auto) 12.9H, Lymphocytes # (Auto) 2.6, Monocytes # (Auto) 1.3H, Eosinophils # (Auto) 0.1, Basophils # (Auto) 0.0, Immature Granulocyte # (Auto) 0.1, Erythrocyte Sedimentation Rate 31H, Sodium Level 137, Potassium Level 3.5L, Chloride Level 107, Carbon Dioxide Level 18L, Anion Gap 12, Blood Urea Nitrogen 26H, Creatinine 1.58H, Estimat Glomerular Filtration Rate 42, BUN/Creatinine Ratio 16, Glucose Level 118H, Calcium Level 9.0, Phosphorus Level 3.4, Magnesium Level 1.6, C- Reactive Protein High Sensitivity 14.93H, Procalcitonin 2.54H Microbiology 05/18/21 Gram Stain - Final, Resulted 05/18/21 Sputum Culture, Resulted Pending 05/18/21 Urine Culture - Preliminary, Resulted Gram Negative Warner Assessment/Plan Assessment/Plan Assessment and Plan PNEUMONIA W/SEPTIC SHOCK LACTIC ACIDOSIS HEMOPTYSIS -Started Zosyn -Lactic Acid down to 1.85 -Not receiving IV Fluids due to CHF -CXR/CT angio showed bilateral edema vs pneumonitis. Negative for PE -Culture results negative -Procalcitonin 2.54 -Will evaluate for possible pulmonary-renal syndromes ACUTE RESPIRATORY FAILURE -Receiving 4L O2 via nasal cannula currently, will use BiPAP as needed. 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 Will hold for now due to hemoptysis and because he may need a bronchoscopy. Admitted with respiratory failure with hemoptysis. Holding anticoagulation. Continue antibiotics. TeleICU following. Problems: (1) Acute respiratory failure with hypoxia (2) Hemoptysis (3) Pneumonia Qualifiers: Qualified Codes: J18.9 - Pneumonia, unspecified organism (4) Acute on chronic heart failure with preserved ejection fraction (5) NSTEMI (non-ST elevated myocardial infarction) (6) Paroxysmal atrial fibrillation (7) Stage 3 chronic kidney disease Clinical Quality Measures Admission Status Admission Dx Septic shock due to pneumonia Supervisory-Addendum Brief Verification & Attestation Participated in pt care: history, MDM, physical Personally performed: exam, history, MDM, supervision of care Care discussed with: Medical Student Procedures: n/a Results interpretation: Verified all documentation A medical student performed and documented this service in my presence. I reviewed and verified all information documented by the medical student and made modifications to such information, when appropriate. I personally performed the physical exam and medical decision making. MIRTHA KNUTSON May 19, 2021 10:24 LALITHA JACK MD May 19, 2021 20:28
[2021-05-19] MEDS ORDERED: TRANEXAMIC ACID 100 MG/ML 10 ML INJECTION ONE (10:41)
[2021-05-19] MEDS ORDERED: VITA1TAB17 PO (10:51)
--- NOTE | 2021-05-19 10:55 | Tele-ICU Progress Note ---
Subjective Date Seen by a Provider: May 19, 2021 Time Seen by a Provider: 10:50 Subjective/Events-last exam This patient is admitted via emergency room with shortness of breath and hemoptysis. No fever present. CT angiogram of the chest showed bilateral extensive interstitial and nodular infiltrates along with bilateral pleural effusion suspect for continued to heart failure and possibly pneumonia. He has a history of mild aortic stenosis, hypertension, atrial fibrillation on anticoagulant therapy. The anticoagulants are on hold. Currently his hemoptysis significantly improved although he is having small amount of blood in the sputum. His BNP is elevated and he is started on IV Lasix by the cardiology service. His urine cultures grew gram-negative rods and ID pending. Review of Systems ROS PER RN Sepsis Event Evaluation Height, Weight, BMI Height: 5'6.00" Weight: 173lbs. 6.4oz. 78.094861sg; 28.51 BMI Method: Focused Exam Lactate Level 05/18/21 08:30: Lactic Acid Level 4.70*H 05/18/21 12:00: Lactic Acid Level 2.46*H 05/18/21 13:50: Lactic Acid Level 1.85 Exam Exam Patient acknowledged, consented, and participated in this virtual visit which was conducted using real time audio/video Vital Signs Date Time Temp Pulse Resp B/P (MAP) Pulse Ox O2 Delivery O2 Flow Rate FiO2 05/19/21 10:00 77 28 116/65 93 High Flow N/C 4.00 05/19/21 09:00 100 29 138/73 93 High Flow N/C 4.00 05/19/21 08:00 91 High Flow N/C 4.00 05/19/21 08:00 High Flow N/C 4.00 05/19/21 08:00 80 29 105/59 94 High Flow N/C 4.00 05/19/21 07:27 36.9 05/19/21 07:15 84 05/19/21 07:00 84 22 104/60 94 High Flow N/C 6.00 05/19/21 06:00 86 23 115/61 94 High Flow N/C 6.00 05/19/21 05:00 83 25 113/66 94 High Flow N/C 6.00 05/19/21 04:00 94 High Flow N/C 6.00 05/19/21 04:00 81 24 116/66 94 High Flow N/C 6.00 05/19/21 03:00 90 26 121/72 94 High Flow N/C 6.00 05/19/21 02:33 93 High Flow N/C 4.00 05/19/21 02:00 78 25 114/60 95 High Flow N/C 6.00 05/19/21 01:00 80 05/19/21 01:00 80 25 111/64 95 High Flow N/C 6.00 05/19/21 00:19 37.2 05/19/21 00:00 94 High Flow N/C 6.00 05/19/21 00:00 90 24 92/56 95 High Flow N/C 6.00 05/18/21 23:30 High Flow N/C 4.00 05/18/21 23:00 77 24 110/52 94 High Flow N/C 6.00 05/18/21 22:00 79 28 110/58 96 High Flow N/C 6.00 05/18/21 21:00 82 21 98/53 95 High Flow N/C 6.00 05/18/21 20:00 94 High Flow N/C 6.00 05/18/21 20:00 83 23 95/57 95 High Flow N/C 6.00 05/18/21 19:47 37.5 05/18/21 19:33 86 05/18/21 19:30 High Flow N/C 6.00 05/18/21 19:06 81 22 98 50.00 05/18/21 19:00 81 25 115/65 96 NIV Bilevel 50.00 05/18/21 18:00 82 18 107/72 96 NIV Bilevel 50.00 05/18/21 17:00 81 16 103/62 95 NIV Bilevel 50.00 05/18/21 16:02 NIV Bilevel 50.00 05/18/21 16:00 37.2 05/18/21 15:13 95 05/18/21 15:00 97 30 93/63 94 Nasal Cannula 6.00 05/18/21 14:39 94 High Flow N/C 6.00 05/18/21 14:33 37.5 97 29 118/64 95 Nasal Cannula 6.00 05/18/21 13:55 92 18 108/67 94 NIV Bilevel 05/18/21 11:20 114 24 99 100.00 I & O 05/19/21 07:00 Intake Total 2720 ml Output Total 650 ml Balance 2070 ml Height & Weight Height: 5'6.00" Weight: 173lbs. 6.4oz. 78.025082vx; 28.51 BMI Method: General Appearance: No Apparent Distress HEENT: PERRL/EOMI, TMs Normal, Normal ENT Inspection, Pharynx Normal, Moist Mucous Membranes Neck: Full Range of Motion, Normal Inspection, Non Tender Respiratory: Crackles, Decreased Breath Sounds Cardiovascular: Regular Rate, Rhythm, Normal Peripheral Pulses Capillary Refill: Less Than 3 Seconds Extremity: Normal Capillary Refill, Normal Inspection, Normal Range of Motion, No Pedal Edema Neurologic/Psychiatric: Alert, Oriented x3, No Motor/Sensory Deficits Skin: Normal Color, Warm/Dry Other comments PE PER RN Results Lab Laboratory Tests 05/18/21 08:30 05/19/21 04:45 Assessment/Plan Assessment/Plan 1. His hemoptysis most likely due to combination of 4 anticoagulant therapy in a patient who had acute diastolic congestive heart failure. 2. Elevated troponin probably due to non-STEMI. 3. Possible underlying the pneumonia. 4. Gram-negative urinary tract infection. 5. Acute hypoxic respiratory failure due to pneumonia and CHF Recommendations 1. Agree with oxygenation with the nasal cannula 2. Continue IV antibiotics per primary care 3. Anticoagulants have been held and a bronchoscopy is being considered 4. Continue IV Lasix per cardiology and repeat chest x-ray and a BMP 5. DVT prophylaxis with SCDs for now. Critical Care: Critically Ill Patient Time spent with patient (mins): 25 STEVAN ARIZMENDI MD May 19, 2021 10:55
[2021-05-19] MEDS: PIPERACILLIN SODIUM/TAZOBACTAM 4.5 GM in NS (IVPB) 100 ML IV SCH ×2 (16:11→23:47)
[2021-05-19 20:50] VITALS: BP 111/66
[2021-05-20] MEDS: NOREPINEPHRINE 8 MG/250 ML 250 ML IV SCH ×2 (00:53→15:31)
[2021-05-20 05:53] LABS: BASOPHILS % (AUTO) 0 % (0-10); EOSINOPHILS # (AUTO) 0.3 10^3/uL (0.0-0.3); EOSINOPHILS % (AUTO) 2 % (0-10); HEMATOCRIT 35 % (40-54); HEMOGLOBIN 11.9 g/dL (13.3-17.7); LYMPHOCYTES # (AUTO) 2.2 10^3/uL (1.0-4.0); LYMPHOCYTES % (AUTO) 18 % (12-44); MEAN CORPUSCULAR HEMOGLOBIN 35 pg (25-34); MEAN CORPUSCULAR HGB CONC 34 g/dL (32-36); MEAN CORPUSCULAR VOLUME 104 fL (80-99); MEAN PLATELET VOLUME 11.1 fL (9.0-12.2); MONOCYTES % (AUTO) 8 % (0-12); NEUTROPHILS % (AUTO) 72 % (42-75); PLATELET COUNT 137 10^3/uL (130-400); WHITE BLOOD COUNT 12.6 10^3/uL (4.3-11.0)
[2021-05-20 06:06] LABS: POTASSIUM 3.1 MMOL/L (3.6-5.0)
[2021-05-20 06:11] LABS: CREATININE SERUM 1.68 MG/DL (0.60-1.30); PHOSPHORUS 3.8 MG/DL (2.3-4.7)
[2021-05-20 06:14] LABS: MAGNESIUM 1.9 MG/DL (1.6-2.4)
[2021-05-20] MEDS: CATHETER FLUSH 10 ML SYR IV SCH ×3 (06:25→20:30)
[2021-05-20] MEDS: POTASSIUM CL 10MEQ/50ML IVPB 50 ML IV SCH (06:26)
[2021-05-20] MEDS: KCL 20 MEQ TAB (K-DUR) PO SCH (06:27)
[2021-05-20] MEDS: MAGNESIUM 1 GM/100 ML IVPB 100 ML IV SCH (06:27)
--- NOTE | 2021-05-20 07:13 | Diagnostic Imaging Report ---
EXAMINATION: Chest 1 view HISTORY: Pneumonia. COMPARISON: 05/19/2021. FINDINGS: Stable consolidative opacities in the midlungs bilaterally with slight improved aeration in the right lung base. No large pleural effusion or pneumothorax. Stable cardiomegaly. IMPRESSION: 1. Slight improved aeration in the right lung base with persistent consolidative opacities in the midlungs. 2. Stable cardiomegaly. Dictated by: Dictated on workstation # [id number]
[2021-05-20] MEDS: PIPERACILLIN SODIUM/TAZOBACTAM 4.5 GM in NS (IVPB) 100 ML IV SCH ×2 (08:45→15:39)
[2021-05-20] MEDS: FUROSEMIDE 40 MG/4 ML INJ (LASIX) IVP SCH (08:45)
--- NOTE | 2021-05-20 08:55 | Cardiology Progress Note ---
Progress Note-Cardiology Events since last exam Date Seen by Provider: May 20, 2021 Time Seen by Provider: 08:54 Events since last exam I am following him due to heart failure with preserved ejection fraction and probable type II non-ST elevation myocardial infarction in the setting of pneumonia with sepsis. He feels as though his breathing is better today. He still has some mild hemoptysis. He denies chest pain, palpitations, syncope, or ankle edema. Certain portions of this document may have been dictated utilizing voice recognition technology. Inherent to this technology, typographical and grammati fili errors may exist. As much as I am diligent to identify and correct these mistakes, some errors may remain in the document. Vitals Last set of Vitals Signs Vital Signs 05/20/21 05/20/21 05/20/21 07:32 09:00 10:00 Temp 36.4 Pulse 81 Resp 20 B/P (MAP) 117/92 Pulse Ox 93 O2 Delivery High Flow N/C O2 Flow Rate 4.00 Labs Labs Laboratory Tests 05/20/21 05:47 Exam Vital Signs Vital Signs Date Time Temp Pulse Resp B/P (MAP) Pulse Ox O2 Delivery O2 Flow Rate FiO2 05/20/21 10:00 81 20 93 High Flow N/C 4.00 05/20/21 09:00 117/92 05/20/21 07:32 36.4 Physical Exam General: Alert. No acute distress. He was sitting up on the side of the bed. Eye: No xanthelasma. HENT: Normocephalic. Neck: Jugular venous pressure does not appear elevated. Respiratory: Lungs are clear to auscultation posteriorly with some mild anterior inspiratory wheezes. Respirations are non-labored. Breath sounds are equal. Symmetrical chest wall expansion. Cardiovascular: Normal rate. Regular rhythm. Distant S1/S2. 2/6 systolic ejection murmur. No gallop. No edema. Gastrointestinal: Soft. Normal bowel sounds. Skin: Warm. Dry. Neurologic: Alert and oriented to person, place, time. Cranial nerves 3-11 grossly intact. Psychiatric: Cooperative. Appropriate mood & affect. Labs Laboratory Tests Test 05/20/21 05:47 Range/Units White Blood Count 12.6 H 4.3-11.0 10^3/uL Red Blood Count 3.39 L 4.30-5.52 10^6/uL Hemoglobin 11.9 L 13.3-17.7 g/dL Hematocrit 35 L 40-54 % Mean Corpuscular Volume 104 H 80-99 fL Mean Corpuscular Hemoglobin 35 H 25-34 pg Mean Corpuscular Hemoglobin Concent 34 32-36 g/dL Red Cell Distribution Width 14.8 H 10.0-14.5 % Platelet Count 137 130-400 10^3/uL Mean Platelet Volume 11.1 9.0-12.2 fL Immature Granulocyte % (Auto) 0 % Neutrophils (%) (Auto) 72 42-75 % Lymphocytes (%) (Auto) 18 12-44 % Monocytes (%) (Auto) 8 0-12 % Eosinophils (%) (Auto) 2 0-10 % Basophils (%) (Auto) 0 0-10 % Neutrophils # (Auto) 9.0 H 1.8-7.8 10^3/uL Lymphocytes # (Auto) 2.2 1.0-4.0 10^3/uL Monocytes # (Auto) 1.0 0.0-1.0 10^3/uL Eosinophils # (Auto) 0.3 0.0-0.3 10^3/uL Basophils # (Auto) 0.0 0.0-0.1 10^3/uL Immature Granulocyte # (Auto) 0.1 0.0-0.1 10^3/uL Sodium Level 135 135-145 MMOL/L Potassium Level 3.1 L 3.6-5.0 MMOL/L Chloride Level 104 98-107 MMOL/L Carbon Dioxide Level 19 L 21-32 MMOL/L Anion Gap 12 5-14 MMOL/L Blood Urea Nitrogen 26 H 7-18 MG/DL Creatinine 1.68 H 0.60-1.30 MG/DL Estimat Glomerular Filtration Rate 39 BUN/Creatinine Ratio 15 Glucose Level 128 H 70-105 MG/DL Calcium Level 9.0 8.5-10.1 MG/DL Phosphorus Level 3.8 2.3-4.7 MG/DL Magnesium Level 1.9 1.6-2.4 MG/DL B-Type Natriuretic Peptide 458.8 H <100.0 PG/ML Diagnosis/Problems Diagnosis/Problems (1) Acute on chronic heart failure with preserved ejection fraction Assessment & Plan: His symptoms continue to improve and his chest x-ray looks better. I started furosemide 40 mg intravenously daily on 05/19. We will need to watch his renal function closely. His creatinine is slightly higher today. If his creatinine continues to climb, we will need to change his intravenous Lasix back over to his home dose of oral furosemide. (2) Troponin level elevated Assessment & Plan: He had a recent cardiac catheterization that showed an giographically normal appearing coronary arteries. The elevated troponin level is a probable type II non-ST elevation myocardial infarction due to supply/demand mismatch. Once his hemoptysis improves, we will get him back on his oral anticoagulation for atrial fibrillation. No aspirin since he is on a DOAC for atrial fibrillation. (3) Paroxysmal atrial fibrillation Assessment & Plan: He remains in sinus rhythm and remittent sinus tachycardia. His hemoptysis persists but may be improved slightly. I will restart his apixaban on 05/21. He is on the renal adjusted dose due to age over 80 and creatinine that usually hovers just above 1.5. (4) Aortic stenosis Assessment & Plan: He has moderate aortic stenosis. This should not be causing symptoms but will need to be followed longitudinally. (5) Acute respiratory failure with hypoxemia Status: Acute Assessment & Plan: Most likely multifactorial due to pneumonia and heart failure. (6) Primary hypertension Assessment & Plan: He was on carvedilol at home. This is presently on hold due to pneumonia with sepsis. As his pneumonia and sepsis improve, we can probably resume his carvedilol. (7) Mixed hyperlipidemia Assessment & Plan: Continue atorvastatin which he was taking at home. (8) Stage 3 chronic kidney disease Assessment & Plan: As above. JUSTO LOPEZ JR, MD May 20, 2021 08:55
[2021-05-20] MEDS ORDERED: KCL 20 MEQ TAB (K-DUR) PO ONE ×2 (09:00→11:00)
--- NOTE | 2021-05-20 09:18 | Tele-ICU Progress Note ---
Subjective Date Seen by a Provider: May 20, 2021 Time Seen by a Provider: 09:18 Subjective/Events-last exam Patient today is not wearing BiPAP. He is breathing is much better. He has occasional small amount of blood in the sputum per patient. But the RN could not confirm it. Chest x-ray still showing bilateral midlung area infiltrate. However pleural effusion improving. BNP is slightly reduced. Overall he did not achieve any negative fluid balance. Will consider giving oral Zaroxolyn x1. He has no fever present Review of Systems ROS PER RN Sepsis Event Evaluation Height, Weight, BMI Height: 5'6.00" Weight: 173lbs. 6.4oz. 78.853114ti; 28.51 BMI Method: Focused Exam Lactate Level 05/18/21 08:30: Lactic Acid Level 4.70*H 05/18/21 12:00: Lactic Acid Level 2.46*H 05/18/21 13:50: Lactic Acid Level 1.85 Exam Exam Patient acknowledged, consented, and participated in this virtual visit which was conducted using real time audio/video Vital Signs Date Time Temp Pulse Resp B/P (MAP) Pulse Ox O2 Delivery O2 Flow Rate FiO2 05/20/21 09:00 85 28 117/92 94 High Flow N/C 4.00 05/20/21 08:00 75 23 135/75 95 High Flow N/C 4.00 05/20/21 07:32 36.4 05/20/21 07:00 69 05/20/21 07:00 64 21 125/63 97 High Flow N/C 4.00 05/20/21 06:00 66 16 134/69 97 High Flow N/C 4.00 05/20/21 05:00 75 22 122/61 95 High Flow N/C 4.00 05/20/21 04:00 75 22 116/68 95 High Flow N/C 4.00 05/20/21 04:00 93 High Flow N/C 4.00 05/20/21 03:00 70 21 109/57 94 High Flow N/C 4.00 05/20/21 02:00 71 21 106/65 96 High Flow N/C 4.00 05/20/21 01:00 76 05/20/21 01:00 76 16 112/69 93 High Flow N/C 4.00 05/20/21 00:00 82 20 112/69 95 High Flow N/C 4.00 05/20/21 00:00 93 High Flow N/C 4.00 05/19/21 23:29 36.2 High Flow N/C 4.00 05/19/21 23:00 78 23 112/69 98 NIV Bilevel 50.00 05/19/21 22:00 74 19 112/69 99 NIV Bilevel 50.00 05/19/21 21:00 78 19 112/69 98 NIV Bilevel 50.00 05/19/21 20:59 NIV Bilevel 50.00 05/19/21 20:50 75 23 98 50.00 05/19/21 20:00 93 High Flow N/C 4.00 05/19/21 20:00 80 22 112/69 94 High Flow N/C 4.00 05/19/21 19:15 36.4 05/19/21 19:00 90 28 112/69 96 High Flow N/C 4.00 05/19/21 19:00 90 05/19/21 17:00 76 95 112/69 95 High Flow N/C 4.00 05/19/21 16:00 91 High Flow N/C 4.00 05/19/21 16:00 75 24 120/68 95 High Flow N/C 4.00 05/19/21 15:59 36.8 05/19/21 15:00 77 25 115/70 94 High Flow N/C 4.00 05/19/21 14:00 77 24 113/60 94 High Flow N/C 4.00 05/19/21 13:13 80 05/19/21 13:00 82 22 105/60 94 High Flow N/C 4.00 05/19/21 12:00 91 High Flow N/C 4.00 05/19/21 12:00 82 32 110/85 94 High Flow N/C 4.00 05/19/21 11:04 37.0 05/19/21 11:00 80 28 119/74 96 High Flow N/C 4.00 05/19/21 10:48 95 High Flow N/C 4.00 05/19/21 10:00 77 28 116/65 93 High Flow N/C 4.00 I & O 05/20/21 07:00 Intake Total 2210 ml Output Total 1250 ml Balance 960 ml Height & Weight Height: 5'6.00" Weight: 173lbs. 6.4oz. 78.939234oz; 28.51 BMI Method: General Appearance: No Apparent Distress HEENT: PERRL/EOMI, TMs Normal, Normal ENT Inspection, Pharynx Normal, Moist Mucous Membranes Neck: Full Range of Motion, Normal Inspection, Non Tender Respiratory: Crackles, Decreased Breath Sounds Cardiovascular: Regular Rate, Rhythm, Normal Peripheral Pulses Capillary Refill: Less Than 3 Seconds Extremity: Normal Capillary Refill, Normal Inspection, Normal Range of Motion, No Pedal Edema Neurologic/Psychiatric: Alert, Oriented x3, No Motor/Sensory Deficits Skin: Normal Color, Warm/Dry Other comments PE PER RN Results Lab Laboratory Tests 05/19/21 04:45 05/20/21 05:47 Assessment/Plan Assessment/Plan 1. His hemoptysis most likely due to combination of anticoagulant therapy in a patient who had acute diastolic congestive heart failure. 2. Elevated troponin probably due to non-STEMI. 3. Possible underlying the pneumonia. 4. Gram-negative urinary tract infection. 5. Acute hypoxic respiratory failure due to pneumonia and improving Recommendations 1. Agree with oxygenation with the nasal cannula 2. Continue IV antibiotics per primary care 3. Anticoagulants have been held and a bronchoscopy is being considered 4. Continue IV Lasix per cardiology and repeat chest x-ray and a BMP 5. DVT prophylaxis with SCDs for now. 6. will give one dose of Zaroxylin now Critical Care: Critically Ill Patient Time spent with patient (mins): 25 STEVAN ARIZMENDI MD May 20, 2021 09:18
--- NOTE | 2021-05-20 11:58 | Progress Note ---
Subjective Subjective Date Seen by Provider: May 20, 2021 Time Seen by Provider: 07:45 Patient was doing well this morning eating breakfast when i saw him. He says his cough is a bit improved but there is still blood. He denies any SOA, N/V, sweats/chills, chest pain or light headedness. He was able to sleep pretty well last night when he was not wearing the BiPAP All Other Systems Reviewed All Other Systems Reviewed: Yes Objective Exam Vital Signs Vital Signs Date Time Temp Pulse Resp B/P (MAP) Pulse Ox O2 Delivery O2 Flow Rate FiO2 05/20/21 11:00 73 21 115/65 96 High Flow N/C 4.00 05/20/21 10:00 81 20 93 High Flow N/C 4.00 05/20/21 09:00 85 28 117/92 94 High Flow N/C 4.00 05/20/21 08:30 High Flow N/C 3.00 05/20/21 08:00 75 23 135/75 95 High Flow N/C 4.00 05/20/21 07:32 36.4 05/20/21 07:00 69 05/20/21 07:00 64 21 125/63 97 High Flow N/C 4.00 05/20/21 06:00 66 16 134/69 97 High Flow N/C 4.00 05/20/21 05:00 75 22 122/61 95 High Flow N/C 4.00 05/20/21 04:00 75 22 116/68 95 High Flow N/C 4.00 05/20/21 04:00 93 High Flow N/C 4.00 05/20/21 03:00 70 21 109/57 94 High Flow N/C 4.00 05/20/21 02:00 71 21 106/65 96 High Flow N/C 4.00 05/20/21 01:00 76 05/20/21 01:00 76 16 112/69 93 High Flow N/C 4.00 05/20/21 00:00 82 20 112/69 95 High Flow N/C 4.00 05/20/21 00:00 93 High Flow N/C 4.00 05/19/21 23:29 36.2 High Flow N/C 4.00 05/19/21 23:00 78 23 112/69 98 NIV Bilevel 50.00 05/19/21 22:00 74 19 112/69 99 NIV Bilevel 50.00 05/19/21 21:00 78 19 112/69 98 NIV Bilevel 50.00 05/19/21 20:59 NIV Bilevel 50.00 05/19/21 20:50 75 23 98 50.00 05/19/21 20:00 93 High Flow N/C 4.00 05/19/21 20:00 80 22 112/69 94 High Flow N/C 4.00 05/19/21 19:15 36.4 05/19/21 19:00 90 28 112/69 96 High Flow N/C 4.00 05/19/21 19:00 90 05/19/21 17:00 76 95 112/69 95 High Flow N/C 4.00 05/19/21 16:00 91 High Flow N/C 4.00 05/19/21 16:00 75 24 120/68 95 High Flow N/C 4.00 05/19/21 15:59 36.8 05/19/21 15:00 77 25 115/70 94 High Flow N/C 4.00 05/19/21 14:00 77 24 113/60 94 High Flow N/C 4.00 05/19/21 13:13 80 05/19/21 13:00 82 22 105/60 94 High Flow N/C 4.00 05/19/21 12:00 91 High Flow N/C 4.00 05/19/21 12:00 82 32 110/85 94 High Flow N/C 4.00 I & O 05/20/21 07:00 Intake Total 2210 ml Output Total 1250 ml Balance 960 ml General Appearance: No Apparent Distress, WD/WN HEENT: PERRL/EOMI, TMs Normal, Normal ENT Inspection, Pharynx Normal, Moist Mucous Membranes Neck: Full Range of Motion, Normal Inspection, Non Tender Respiratory: Crackles, Decreased Breath Sounds Cardiovascular: Regular Rate, Rhythm, Normal Peripheral Pulses Gastrointestinal: Normal Bowel Sounds, Non Tender, Soft Back: Normal Inspection Extremity: Normal Capillary Refill, Normal Inspection, Normal Range of Motion, No Pedal Edema Neurologic/Psychiatric: Alert, Oriented x3, No Motor/Sensory Deficits Skin: Normal Color, Warm/Dry Results Lab Laboratory Tests 05/20/21 05:47: White Blood Count 12.6H, Red Blood Count 3.39L, Hemoglobin 11.9L, Hematocrit 35L , Mean Corpuscular Volume 104H, Mean Corpuscular Hemoglobin 35H, Mean Co rpuscular Hemoglobin Concent 34, Red Cell Distribution Width 14.8H, Platelet Count 137, Mean Platelet Volume 11.1, Immature Granulocyte % (Auto) 0, Neutrophils (%) (Auto) 72, Lymphocytes (%) (Auto) 18, Monocytes (%) (Auto) 8, Eosinophils (%) (Auto) 2, Basophils (%) (Auto) 0, Neutrophils # (Auto) 9.0H, Lymphocytes # (Auto) 2.2, Monocytes # (Auto) 1.0, Eosinophils # (Auto) 0.3, Basophils # (Auto) 0.0, Immature Granulocyte # (Auto) 0.1, Sodium Level 135, Pot assium Level 3.1L, Chloride Level 104, Carbon Dioxide Level 19L, Anion Gap 12, Blood Urea Nitrogen 26H, Creatinine 1.68H, Estimat Glomerular Filtration Rate 39, BUN/Creatinine Ratio 15, Glucose Level 128H, Calcium Level 9.0, Phosphorus Level 3.8, Magnesium Level 1.9, B-Type Natriuretic Peptide 458.8H Microbiology 05/18/21 Gram Stain - Final, Complete 05/18/21 Sputum Culture - Final, Complete Usual upper respiratory chung 05/18/21 Blood Culture - Preliminary, Resulted No growth 05/18/21 Urine Culture - Final, Complete Mixed Bacterial Chung Assessment/Plan Assessment/Plan Assessment and Plan PNEUMONIA W/SEPTIC SHOCK LACTIC ACIDOSIS HEMOPTYSIS -Continue Zosyn -Lactic Acidosis resolved -Repeat CXR stable -Sputum culture results negative -Procalcitonin 2.54 -Pulmonary-renal syndrome unlikely, still awaiting lab results ACUTE RESPIRATORY FAILURE -Receiving 4L O2 via nasal cannula currently, will use BiPAP as needed. 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 IV Zosyn should cover HYPOKALEMIA -3.1 this morning. Supplementing CHRONIC AFIB -Usually takes Eliquis. Will hold for now due to hemoptysis and because he may need a bronchoscopy. Continue antibiotics. Hold anticoagulation. Monitor hemoptysis, reportedly improving. Problems: (1) Acute respiratory failure with hypoxia (2) Hemoptysis (3) Pneumonia Qualifiers: Qualified Codes: J18.9 - Pneumonia, unspecified organism (4) Atrial fibrillation Supervisory-Addendum Brief Verification & Attestation Participated in pt care: history, MDM, physical Personally performed: exam, history, MDM, supervision of care Care discussed with: Medical Student Procedures: n/a Results interpretation: Verified all documentation A medical student performed and documented this service in my presence. I reviewed and verified all information documented by the medical student and made modifications to such information, when appropriate. I personally performed the physical exam and medical decision making. MIRTHA KNUTSON May 20, 2021 11:58 LALITHA JACK MD May 20, 2021 21:08
[2021-05-20] MEDS: VASOPRESSIN INJECTION 20 UNIT in NS (IVPB) 100 ML IV SCH ×2 (12:14→20:30)
[2021-05-20] MEDS ORDERED: METOLAZONE 5 MG (ZAROXOLYN) TAB PO NR (13:00)
[2021-05-20] MEDS ORDERED: meTOprolol 5 MG/5 ML (LOPRESSOR) VIAL ONE (23:43)
[2021-05-20] MEDS ORDERED: meTOprolol 5 MG/5 ML (LOPRESSOR) VIAL IV ONE (23:45)
[2021-05-21] MEDS: PIPERACILLIN SODIUM/TAZOBACTAM 4.5 GM in NS (IVPB) 100 ML IV SCH ×3 (00:08→15:43)
[2021-05-21] MEDS ORDERED: NS (IVPB) 250 ML ONE (00:28)
[2021-05-21] MEDS ORDERED: NS (IVPB) 250 ML IV ONE (00:30)
[2021-05-21] MEDS ORDERED: AMIODARONE 450 MG/9 ML (CORDARONE) VIAL IV ONE (01:25)
[2021-05-21] MEDS ORDERED: D5W IV SOLUTION (EXCEL) 250 ML IV ONE ×2 (01:26→07:54)
[2021-05-21] MEDS: AMIODARONE INJECTION 450 MG in D5W IV SOLUTION (EXCEL) 250 ML IV SCH ×2 (01:41→08:27)
[2021-05-21 04:14] LABS: BASOPHILS % (AUTO) 0 % (0-10); EOSINOPHILS # (AUTO) 0.4 10^3/uL (0.0-0.3); EOSINOPHILS % (AUTO) 4 % (0-10); HEMATOCRIT 37 % (40-54); HEMOGLOBIN 12.5 g/dL (13.3-17.7); LYMPHOCYTES % (AUTO) 17 % (12-44); MEAN CORPUSCULAR HEMOGLOBIN 35 pg (25-34); MEAN CORPUSCULAR HGB CONC 34 g/dL (32-36); MEAN CORPUSCULAR VOLUME 103 fL (80-99); MEAN PLATELET VOLUME 11.1 fL (9.0-12.2); MONOCYTES # (AUTO) 1.2 10^3/uL (0.0-1.0); MONOCYTES % (AUTO) 11 % (0-12); NEUTROPHILS # (AUTO) 7.5 10^3/uL (1.8-7.8); NEUTROPHILS % (AUTO) 67 % (42-75); PLATELET COUNT 151 10^3/uL (130-400); WHITE BLOOD COUNT 11.2 10^3/uL (4.3-11.0)
[2021-05-21 04:27] LABS: POTASSIUM 3.4 MMOL/L (3.6-5.0)
[2021-05-21 04:28] LABS: CALCIUM 9.3 MG/DL (8.5-10.1)
[2021-05-21 04:32] LABS: PHOSPHORUS 3.8 MG/DL (2.3-4.7)
[2021-05-21 04:33] LABS: CREATININE SERUM 1.81 MG/DL (0.60-1.30)
[2021-05-21 04:35] LABS: MAGNESIUM 1.7 MG/DL (1.6-2.4)
[2021-05-21] MEDS: MAGNESIUM 1 GM/100 ML IVPB 100 ML IV SCH ×2 (04:53→05:02)
[2021-05-21] MEDS: POTASSIUM CL 10MEQ/50ML IVPB 50 ML IV SCH (04:53)
[2021-05-21] MEDS: KCL 20 MEQ TAB (K-DUR) PO SCH (04:54)
[2021-05-21] MEDS: CATHETER FLUSH 10 ML SYR IV SCH ×2 (05:02→15:21)
[2021-05-21] MEDS: VASOPRESSIN INJECTION 20 UNIT in NS (IVPB) 100 ML IV SCH ×2 (07:41→19:26)
[2021-05-21] MEDS: NOREPINEPHRINE 8 MG/250 ML 250 ML IV SCH (07:41)
[2021-05-21] MEDS: FUROSEMIDE 40 MG/4 ML INJ (LASIX) IVP SCH (08:00)
[2021-05-21] MEDS ORDERED: KCL 20 MEQ TAB (K-DUR) PO ONE (08:00)
[2021-05-21] MEDS ORDERED: RT-ALBUTEROL/IPRATROPIUM 3 ML (DUONEB) VIAL INH PRN (08:15)
[2021-05-21] MEDS ORDERED: APIXABAN 2.5 MG (ELIQUIS) TABLET PO SCH (09:00)
--- NOTE | 2021-05-21 09:23 | Tele-ICU Progress Note ---
Subjective Date Seen by a Provider: May 21, 2021 Time Seen by a Provider: 07:47 Subjective/Events-last exam This virtual visit was conducted using real time audio/video. Thank you for asking us to see this patient for respiratory insufficiency due to diast HF, pna, AECOPD, hemoptysis. Also NSTEMI. Recent events: Went into afib and converted to NSR. PE: Appears comfortable. VSS. O2 sat 96% on 3 LPM NC. HEENT: No obvious masses, adenopathy or JVD. Chest: Decreased BS on auscultation. CV: RRR S1 S2 No murmur or added sounds. Abd: Non-tender. Bowel sounds Y. : Unremarkable. Marley N. AUDIO/VISUAL MANAGER/psychiatric: Grossly intact. No obvious focal findings. Extremities: No edema. Capillary refill < 3 seconds. Skin: unremarkable. Results: Elevated WCC 11.2, BUN 24, Creat 1.81, BG 135. Decreased Hb 12.5, 3.4. CXR: Hyperinflated, B infilts, effusion decreased. Available chart/ vitals / labs / images reviewed. Video assessment done using teleICU camera, rest of exam as per RN. A/P: Respiratory insufficiency: Continue present management. Add PRN Duonebs Monitor for increasing oxygenation needs and/or need for intubation. Critical Care: critically ill patient. Cont. IV abx, amiodarone, lasix, statin. Replace K. Discussed with JAIDEN Parr. Asked RN to reach out to eICU if any questions or concerns later. Time spent with patient/coordination of care with other health professionals (mins): 28 Sepsis Event Evaluation Height, Weight, BMI Height: 5'6.00" Weight: 173lbs. 6.4oz. [id number]; 28.51 BMI Method: Focused Exam Lactate Level 05/18/21 12:00: Lactic Acid Level 2.46*H 05/18/21 13:50: Lactic Acid Level 1.85 Exam Exam Patient acknowledged, consented, and participated in this virtual visit which was conducted using real time audio/video Vital Signs Date Time Temp Pulse Resp B/P (MAP) Pulse Ox O2 Delivery O2 Flow Rate FiO2 05/21/21 08:00 94 Room Air 3.00 05/21/21 08:00 64 15 117/67 97 High Flow N/C 3.00 05/21/21 07:20 36.4 05/21/21 07:00 69 23 120/70 95 High Flow N/C 3.00 05/21/21 07:00 71 05/21/21 06:16 High Flow N/C 3.00 05/21/21 06:00 87 16 121/76 95 High Flow N/C 3.00 05/21/21 05:06 70 05/21/21 05:00 75 19 116/71 97 High Flow N/C 3.00 05/21/21 04:15 05/21/21 04:00 123 21 92/77 96 High Flow N/C 3.00 05/21/21 03:55 36.7 137 20 87/65 97 High Flow N/C 3.00 05/21/21 03:55 97 High Flow N/C 3.00 05/21/21 03:00 126 22 110/66 96 High Flow N/C 3.00 05/21/21 02:00 140 24 87/76 96 High Flow N/C 3.00 05/21/21 01:00 115 25 97/79 96 High Flow N/C 3.00 05/21/21 01:00 139 05/21/21 00:00 123 25 109/80 95 High Flow N/C 3.00 05/21/21 00:00 96 High Flow N/C 3.00 05/21/21 00:00 36.7 High Flow N/C 3.00 05/20/21 23:05 High Flow N/C 3.00 05/20/21 23:00 128 25 113/66 95 Room Air 05/20/21 22:00 93 24 109/72 92 Room Air 05/20/21 21:36 91 High Flow N/C 3.00 05/20/21 21:00 78 26 104/60 92 Room Air 05/20/21 20:00 74 15 107/67 90 Room Air 05/20/21 19:35 92 Room Air 05/20/21 19:15 36.9 05/20/21 19:00 Room Air 05/20/21 19:00 80 27 109/88 92 Room Air 05/20/21 19:00 85 05/20/21 18:00 80 19 108/75 92 High Flow N/C 4.00 05/20/21 17:00 70 28 92 High Flow N/C 4.00 05/20/21 16:30 Room Air 05/20/21 16:00 77 26 125/78 92 High Flow N/C 4.00 05/20/21 15:37 36.7 05/20/21 15:00 71 26 109/70 93 High Flow N/C 4.00 05/20/21 14:00 73 24 124/69 92 High Flow N/C 4.00 05/20/21 13:00 76 05/20/21 13:00 69 10 117/72 95 High Flow N/C 4.00 05/20/21 12:20 Room Air 05/20/21 12:00 36.5 05/20/21 12:00 71 21 133/70 96 High Flow N/C 4.00 05/20/21 11:00 73 21 115/65 96 High Flow N/C 4.00 05/20/21 10:00 81 20 93 High Flow N/C 4.00 I & O 05/21/21 07:00 Intake Total 2475 ml Output Total 3425 ml Balance -950 ml Height & Weight Height: 5'6.00" Weight: 173lbs. 6.4oz. 78.462203cm; 28.51 BMI Method: General Appearance: No Apparent Distress, WD/WN HEENT: PERRL/EOMI, TMs Normal, Normal ENT Inspection, Pharynx Normal, Moist Mucous Membranes Neck: Full Range of Motion, Normal Inspection, Non Tender Respiratory: Crackles, Decreased Breath Sounds Cardiovascular: Regular Rate, Rhythm, Normal Peripheral Pulses Capillary Refill: Less Than 3 Seconds Extremity: Normal Capillary Refill, Normal Inspection, Normal Range of Motion, No Pedal Edema Neurologic/Psychiatric: Alert, Oriented x3, No Motor/Sensory Deficits Skin: Normal Color, Warm/Dry Results Lab Laboratory Tests 05/20/21 05:47 05/21/21 03:57 Assessment/Plan Assessment/Plan See free text Critical Care: Critically Ill Patient SUMMER SYED MD May 21, 2021 09:23
--- NOTE | 2021-05-21 16:42 | Progress Note - Cardiology ---
Cardiology SO Progress Note Objective: I&O/Vital Signs 05/21/21 05/21/21 05/21/21 05/21/21 05:00 05:06 06:00 06:16 Pulse 75 70 87 Resp 19 16 B/P (MAP) 116/71 121/76 Pulse Ox 97 95 O2 Delivery High Flow N/C High Flow N/C High Flow N/C O2 Flow Rate 3.00 3.00 3.00 05/21/21 05/21/21 05/21/21 05/21/21 07:00 07:00 07:20 08:00 Temp 36.4 Pulse 71 69 64 Resp 23 15 B/P (MAP) 120/70 117/67 Pulse Ox 95 97 O2 Delivery High Flow N/C High Flow N/C O2 Flow Rate 3.00 3.00 05/21/21 05/21/21 05/21/21 05/21/21 08:00 09:00 10:00 11:00 Pulse 75 72 77 Resp 23 B/P (MAP) 110/67 113/65 106/99 Pulse Ox 94 94 92 93 O2 Delivery Room Air High Flow N/C High Flow N/C High Flow N/C O2 Flow Rate 3.00 3.00 3.00 3.00 05/21/21 05/21/21 05/21/21 05/21/21 12:00 12:00 12:00 12:34 Temp 36.0 Pulse 71 68 B/P (MAP) 122/78 Pulse Ox 94 94 O2 Delivery High Flow N/C Room Air O2 Flow Rate 3.00 05/21/21 05/21/21 05/21/21 05/21/21 13:00 14:00 15:00 15:56 Temp 36.8 Pulse 71 62 67 B/P (MAP) Pulse Ox 94 91 92 O2 Delivery High Flow N/C High Flow N/C High Flow N/C O2 Flow Rate 3.00 3.00 3.00 05/21/21 05/21/21 15:57 16:00 Pulse 67 B/P (MAP) 127/100 Pulse Ox 94 92 O2 Delivery Room Air High Flow N/C O2 Flow Rate 3.00 05/21/21 00:00 Intake Total 1025 ml Output Total 2475 ml Balance -1450 ml Weight (Pounds): 173 Weight (Ounces): 6.4 Weight (Calculated Kilograms): [id number] Constitutional: AAO x 3, well-developed, well-nourished Cardiovascular: regular rate-rhythm, S1 and S2, systolic murmur (2/6 MSM) Gastrointestional: No tender; soft; No guarding, No rebound; audible bowel sounds Extremities: No clubbing, No cyanosis, No significant edema Neurologic/Psychiatric: oriented x 3, other (moves all limbs equally) Skin: No rash on exposed areas, No ulcerations on exposed areas Results/Procedures: Labs Laboratory Tests 05/21/21 03:57: White Blood Count 11.2H, Red Blood Count 3.61L, Hemoglobin 12.5L, Hematocrit 37L , Mean Corpuscular Volume 103H, Mean Corpuscular Hemoglobin 35H, Mean Corpuscular Hemoglobin Concent 34, Red Cell Distribution Width 14.6H, Platelet Count 151, Mean Platelet Volume 11.1, Immature Granulocyte % (Auto) 1, Neutrophils (%) (Auto) 67, Lymphocytes (%) (Auto) 17, Monocytes (%) (Auto) 11, Eosinophils (%) (Auto) 4, Basophils (%) (Auto) 0, Neutrophils # (Auto) 7.5, Lymphocytes # (Auto) 2.0, Monocytes # (Auto) 1.2H, Eosinophils # (Auto) 0.4H, Basophils # (Auto) 0.0, Immature Granulocyte # (Auto) 0.1, Sodium Level 136, Potassium Level 3.4L, Chloride Level 103, Carbon Dioxide Level 19L, Anion Gap 14, Blood Urea Nitrogen 24H, Creatinine 1.81H, Estimat Glomerular Filtration Rate 36, BUN/Creatinine Ratio 13, Glucose Level 135H, Calcium Level 9.3, Phosphorus Level 3.8, Magnesium Level 1.7 Microbiology 05/18/21 Gram Stain - Final, Complete 05/18/21 Sputum Culture - Final, Complete Usual upper respiratory chung 05/18/21 Blood Culture - Preliminary, Resulted No growth 05/18/21 Urine Culture - Final, Complete Mixed Bacterial Chung Laboratory Tests 05/20/21 05:47 05/21/21 03:57 A/P: Assessment: Ac resp failure due to pneumonia with sepsis and hemoptysis PAF - OAC being held due to hemoptysis Type 2 MA due to ac resp failure HFpEF Moderate CKD-3 now with superimposed pre-renal azotemia due to diuretic therapy Plan: * I interviewed and examined the patient and reviewed his records * Continue effort to maintain NSR, given unsuitablility for anticoag because of hemoptysis * D/c diuretic due to worsening renal function * Monitor labs closely * Dr Yeboah is transferring him to [facility] for continuing hemoptysis EAGLE GEORGE MD FACP FAC CCDS May 21, 2021 16:42
--- NOTE | 2021-05-21 18:44 | Discharge Summary ---
Discharge Summary Hospital Course Problems/Dx: (1) Acute respiratory failure with hypoxia Status: Acute (2) Hemoptysis Status: Acute (3) Pneumonia Status: Acute Qualifiers: Qualified Codes: J18.9 - Pneumonia, unspecified organism (4) Atrial fibrillation Status: Chronic Hospital Course Date of Admission: May 18, 2021 at 12:55 Admission Diagnosis: Acute respiratory failure with hypoxia, hemoptysis, pneumonia Family Physician/Provider: Villa Ramirez DO Date of Discharge: 05/21/21 Discharge Diagnosis: Acute respiratory failure with hypoxia, hemoptysis, pneumonia Hospital Course: Maurisio Edmondson is an 85 year old male who presented with hemoptysis and was admitted with acute respiratory failure with hypoxia. He had hemoptysis for two weeks prior to coming into the hospital. On arrival, there was concern for developing pneumonia and he was started on Zosyn. He also had a significant lactic acidosis and there was concern for septic shock. He was given fluids and his respiratory status worsened. He required BiPAP briefly. He continued to have hemoptysis despite holding his Eliquis which he takes for AFib. He was t ransferred to [facility] in [place] for pulmonology evaluation for possible bronchoscopy. Labs and Pending Lab Test: Laboratory Tests 05/21/21 03:57: White Blood Count 11.2H, Red Blood Count 3.61L, Hemoglobin 12.5L, Hematocrit 37L , Mean Corpuscular Volume 103H, Mean Corpuscular Hemoglobin 35H, Mean Corpuscular Hemoglobin Concent 34, Red Cell Distribution Width 14.6H, Platelet Count 151, Mean Platelet Volume 11.1, Immature Granulocyte % (Auto) 1, Neutrophils (%) (Auto) 67, Lymphocytes (%) (Auto) 17, Monocytes (%) (Auto) 11, Eosinophils (%) (Auto) 4, Basophils (%) (Auto) 0, Neutrophils # (Auto) 7.5, Lymp hocytes # (Auto) 2.0, Monocytes # (Auto) 1.2H, Eosinophils # (Auto) 0.4H, Basophils # (Auto) 0.0, Immature Granulocyte # (Auto) 0.1, Sodium Level 136, Potassium Level 3.4L, Chloride Level 103, Carbon Dioxide Level 19L, Anion Gap 14, Blood Urea Nitrogen 24H, Creatinine 1.81H, Estimat Glomerular Filtration Rate 36, BUN/Creatinine Ratio 13, Glucose Level 135H, Calcium Level 9.3, Phosphorus Level 3.8, Magnesium Level 1.7 Microbiology 05/18/21 Gram Stain - Final, Complete 05/18/21 Sputum Culture - Final, Complete Usual upper respiratory chung 05/18/21 Blood Culture - Preliminary, Resulted No growth 05/18/21 Urine Culture - Final, Complete Mixed Bacterial Chung Home Meds Active Reported Vitamin B Complex 1 Each Tablet 1 Each PO DAILY Refresh Tears (Carboxymethylcellulose Sodium) 15 Ml Drops 1 Drop OD BID Preservision Areds 2 Softgel (Vit C/E/Zn/Coppr/Lutein/Zeaxan) 1 Each Capsule 1 Each PO BID Magnesium Oxide 250 Mg Tablet 250 Mg PO DAILY Fluticasone-Salmeterol 100-50 (Fluticasone Propion/Salmeterol) 1 Each Blst.w.dev 1 Puff INH BID Flomax (Tamsulosin HCl) 0.4 Mg Cap 0.4 Mg PO DAILY Vitamin D3 (Cholecalciferol (Vitamin D3)) 25 Mcg Capsule 25 Mcg PO HS [place]-3 2100 Softgel ([place]-3/Dha/Epa/Dpa/Fish Oil) 1 Each Capsule 1 Each PO HS Methotrexate (Methotrexate Sodium) 2.5 Mg Tablet 10 Mg PO THURS TAKES 4 (2.5MG) TABLETS Flintstones with Iron Tab Chew (Pedi Mv No.79/Ferrous Fumarate) 18 Mg Tab.chew 18 Mg PO HS Atorvastatin Calcium 40 Mg Tablet 40 Mg PO DAILY Allopurinol 300 Mg Tablet 300 Mg PO DAILY Allergy Relief (Diphenhydramine HCl) 25 Mg Capsule 25 Mg PO HS PRN Carvedilol 6.25 Mg Tablet 6.25 Mg PO BID Omeprazole 40 Mg Capsule.dr 40 Mg PO DAILY Eliquis (Apixaban) 2.5 Mg Tablet 2.5 Mg PO BID Zinc (Zinc Amino Acid Chelate) 50 Mg Tablet 50 Mg PO DAILY Flonase Allergy Relief (Fluticasone Propionate) 9.9 Ml [place].susp 1 [place]ong NS HS PRN Prednisone 5 Mg Tablet 5 Mg PO DAILY Furosemide 20 Mg Tablet 40 Mg PO DAILY TAKES 2 (20MG) TABS [Jessy's Leg Cramps] 1 Tab SL HS PRN Assessment/Pt Instructions Transferred to [facility] Discharge Planning: >30 minutes discharge planning Discharge Instructions Discharge Diet: No Restrictions Activity as Tolerated: Yes Discharge Physical Examination Vital Signs Vital Signs Date Time Temp Pulse Resp B/P (MAP) Pulse Ox O2 Delivery O2 Flow Rate FiO2 05/21/21 18:00 68 111/60 96 High Flow N/C 3.00 05/21/21 15:56 36.8 05/21/21 09:00 23 General Appearance: No Apparent Distress, WD/WN HEENT: PERRL/EOMI, Pharynx Normal Respiratory: No Respiratory Distress, Rhonci Cardiovascular: Regular Rate, Rhythm, No Murmur Gastrointestinal: Normal Bowel Sounds, Non Tender, Soft Extremity: Normal Inspection, No Pedal Edema Skin: Normal Color, Warm/Dry Neurologic/Psychiatric: Alert, Normal Mood/Affect Allergies: Coded Allergies: vancomycin (Verified Allergy, Severe, 05/28/19) Pt states his face got really red and he went into ER for reaction. gemfibrozil (Verified Allergy, Unknown, 05/27/19) valdecoxib (Verified Allergy, Unknown, 05/27/19) Discharge Summary Date of Admission May 18, 2021 at 12:55 Date of Discharge Discharge Date: May 21, 2021 Discharge Time: 18:43 Admission Diagnosis Acute respiratory failure with hypoxia, hemoptysis, pneumonia Consults/Procedures Consulations TeleICU, Cardiology Discharge Diagnosis (1) Acute respiratory failure with hypoxia Status: Acute (2) Hemoptysis Status: Acute (3) Pneumonia Status: Acute Qualifiers: Qualified Codes: J18.9 - Pneumonia, unspecified organism (4) Atrial fibrillation Status: Chronic LALITHA JACK MD May 21, 2021 18:42
== END 2021-05-21 20:13 | disposition short-term general hospital (02) | DRG 871 ==
LOC: EDUNIT# 08:11 → ER 08:12 → ICU 12:55
PROVIDERS: ADMIT Internal Medicine; ATTEND Internal Medicine
PROC: 5A09357 Assistance with Respiratory Ventilation, Less than 24 Consecutive Hours, Continuous Positive Airway Pressure (ICD-10-PCS; principal; 2021-05-18)
DX: A41.9 Sepsis, unspecified organism (principal); R65.21 Severe sepsis with septic shock; J18.9 Pneumonia, unspecified organism; J96.01 Acute respiratory failure with hypoxia; I21.4 Non-ST elevation (NSTEMI) myocardial infarction; I50.33 Acute on chronic diastolic (congestive) heart failure; I21.A1 Myocardial infarction type 2; R04.2 Hemoptysis; I13.0 Hypertensive heart and chronic kidney disease with heart failure and stage 1 through stage 4 chronic kidney disease, or unspecified chronic kidney disease; I48.20 Chronic atrial fibrillation, unspecified; E87.2 Acidosis; N17.9 Acute kidney failure, unspecified; N39.0 Urinary tract infection, site not specified; Z79.01 Long term (current) use of anticoagulants; I25.10 Atherosclerotic heart disease of native coronary artery without angina pectoris; E78.00 Pure hypercholesterolemia, unspecified; N40.0 Benign prostatic hyperplasia without lower urinary tract symptoms; K21.9 Gastro-esophageal reflux disease without esophagitis; M19.90 Unspecified osteoarthritis, unspecified site; M10.9 Gout, unspecified; N18.30 Chronic kidney disease, stage 3 unspecified; Z87.891 Personal history of nicotine dependence; J44.9 Chronic obstructive pulmonary disease, unspecified; B96.89 Other specified bacterial agents as the cause of diseases classified elsewhere; I48.0 Paroxysmal atrial fibrillation; I35.0 Nonrheumatic aortic (valve) stenosis; Z20.822 Contact with and (suspected) exposure to COVID-19
CPT/HCPCS: 36415; 71045; 71275; 80048; 80053; 81000; 82805; 83605; 83735; 83880; 84100; 84145; 84484; 85007; 85025; 85027; 85379; 85610; 85652; 85730; 86021; 86141; 86256; 87040; 87070; 87081; 87088; 87205; 87449; 87636; 87899; 93005; 94640; 94660; 99291

== ENCOUNTER 2021-06-28 15:33 | Inpatient (IN) | payer MEDICARE, OTHER ==
[~2021-06-28] VITALS: Ht 167.7 cm; Wt 80.9 kg
[~2021-06-28 15:33] MED LIST changes: -CARB15DR OD; +CARB15DR OP; +FOLI400T4 PO; +VITA1TAB17 PO
[2021-06-28 16:07] LABS: BASOPHILS % (AUTO) 0 % (0-10); EOSINOPHILS # (AUTO) 0.1 10^3/uL (0.0-0.3); EOSINOPHILS % (AUTO) 1 % (0-10); HEMATOCRIT 43 % (40-54); HEMOGLOBIN 14.8 g/dL (13.3-17.7); LYMPHOCYTES % (AUTO) 30 % (12-44); MEAN CORPUSCULAR HEMOGLOBIN 34 pg (25-34); MEAN CORPUSCULAR HGB CONC 34 g/dL (32-36); MEAN CORPUSCULAR VOLUME 100 fL (80-99); MEAN PLATELET VOLUME 10.6 fL (9.0-12.2); MONOCYTES # (AUTO) 0.8 10^3/uL (0.0-1.0); MONOCYTES % (AUTO) 6 % (0-12); NEUTROPHILS # (AUTO) 8.4 10^3/uL (1.8-7.8); NEUTROPHILS % (AUTO) 63 % (42-75); PLATELET COUNT 150 10^3/uL (130-400); WHITE BLOOD COUNT 13.3 10^3/uL (4.3-11.0)
--- NOTE | 2021-06-28 16:07 | ED Chest Pain ---
General Chief Complaint: Cardiac/General Problems Stated Complaint: IRREGULAR HEART BEAT Nursing Triage Note: ARRIVED VIA AMB TO ROOM 10 WITH COMPLAINTS OF IRREG HEART RATE STARTING AT 1230. HX OF AFIB. Source: patient Exam Limitations: no limitations History of Present Illness Date Seen by Provider: Jun 28, 2021 Time Seen by Provider: 16:06 Initial Comments Patient is a 85-year-old male who presents ED with irregular heart rhythm. Damaso dobson states around 1230 today started having heart palpitation racing heart with shortness of breath. Those symptoms have improved. History of A. fib with RVR in the past. Currently on Eliquis. Patient states he takes carvedilol and currently on Lasix. Denies any vomiting, headache, dizziness, visual changes, abdominal pain. Denies any weakness. She is currently A. fib with RVR Allergies and Home Medications Allergies Coded Allergies: vancomycin (Verified Allergy, Severe, 05/28/19) Pt states his face got really red and he went into ER for reaction. gemfibrozil (Verified Allergy, Unknown, 05/27/19) valdecoxib (Verified Allergy, Unknown, 05/27/19) Patient Home Medication List Home Medication List Reviewed: Yes Allopurinol (Allopurinol) 300 Mg Tablet, 300 MG PO DAILY, (Reported) Entered as Reported by: LISA GEE on 11/22/18 132 Apixaban (Eliquis) 2.5 Mg Tablet, 2.5 MG PO BID, (Reported) Entered as Reported by: LISA GEE on 11/22/18 132 Atorvastatin Calcium (Atorvastatin Calcium) 40 Mg Tablet, 40 MG PO DAILY, (Reported) Entered as Reported by: LISA GEE on 11/22/18 132 Carboxymethylcellulose Sodium (Refresh Tears) 15 Ml Drops, 1 DROP OD BID, (Reported) Entered as Reported by: CATHERINE WALKER on 03/14/21 1117 Carvedilol (Carvedilol) 6.25 Mg Tablet, 6.25 MG PO BID, (Reported) Entered as Reported by: LISA GEE on 11/22/18 132 Cholecalciferol (Vitamin D3) (Vitamin D3) 25 Mcg Capsule, 25 MCG PO HS, (Reported) Entered as Reported by: CATHERINE WALKER on 05/18/20 1107 Diphenhydramine HCl (Allergy Relief) 25 Mg Capsule, 25 MG PO HS PRN for ALLERGIES, (Reported) Entered as Reported by: LISA GEE on 11/22/18 132 Fluticasone Propion/Salmeterol (Fluticasone-Salmeterol 100-50) 1 Each Blst.w.dev, 1 PUFF INH BID, (Reported) Entered as Reported by: CATHERINE WALKER on 05/18/20 110 Fluticasone Propionate (Flonase Allergy Relief) 9.9 Ml Otto.susp, 1 SPRAY NS HS PRN for CONGESTION, (Reported) Entered as Reported by: LISA GEE on 11/22/18 132 Furosemide (Furosemide) 20 Mg Tablet, 40 MG PO DAILY, (Reported) Entered as Reported by: LISA GEE on 11/22/18 132 Magnesium Oxide (Magnesium Oxide) 250 Mg Tablet, 250 MG PO DAILY, (Reported) Entered as Reported by: CATHERINE WALKER on 05/18/20 1110 Methotrexate Sodium (Methotrexate) 2.5 Mg Tablet, 10 MG PO THURS, (Reported) Entered as Reported by: LISA GEE on 11/25/18 0830 [place]-3/Dha/Epa/Dpa/Fish Oil ([place]-3 2100 Softgel) 1 Each Capsule, 1 EACH PO HS, (Reported) Entered as Reported by: CATHERINE WALKER on 05/18/20 110 Omeprazole (Omeprazole) 40 Mg Capsule.dr, 40 MG PO DAILY, (Reported) Entered as Reported by: LISA GEE on 11/22/18 132 Pedi Mv No.79/Ferrous Fumarate (Flintstones with Iron Tab Chew) 18 Mg Tab.chew, 18 MG PO HS, (Reported) Entered as Reported by: LISA GEE on 11/22/18 132 Prednisone (Prednisone) 5 Mg Tablet, 5 MG PO DAILY, (Reported) Entered as Reported by: LISA GEE on 11/22/18 132 Tamsulosin HCl (Flomax) 0.4 Mg Cap, 0.4 MG PO DAILY, (Reported) Entered as Reported by: CATHERINE WALKER on 05/18/20 110 Vit C/E/Zn/Coppr/Lutein/Zeaxan (Preservision Areds 2 Softgel) 1 Each Capsule, 1 EACH PO BID, (Reported) Entered as Reported by: CATHERINE WALKER on 03/14/21 1117 Vitamin B Complex (Vitamin B Complex) 1 Each Tablet, 1 EACH PO DAILY, (Reported) Entered as Reported by: CATHERINE WALKER on 05/19/21 1051 Zinc Amino Acid Chelate (Zinc) 50 Mg Tablet, 50 MG PO DAILY, (Reported) Entered as Reported by: LISA GEE on 11/22/18 1321 [Jessy's Leg Cramps] , 1 TAB SL HS PRN for CRAMPS, (Reported) Entered as Reported by: LISA GEE on 11/22/18 1321 Review of Systems Review of Systems Constitutional: No chills, No diaphoresis, No malaise, No weakness EENTM: No Blurred Vision, No Eye Pain Respiratory: Denies Cough, Denies Orthopnea; Shortness of Air Cardiovascular: Chest Pain Gastrointestinal: Denies Abdomen Distended, Denies Abdominal Pain, Denies Diarrhea, Denies Difficulty Swallowing, Denies Rectal Bleeding, Denies Vomiting Genitourinary: Denies Discharge Musculoskeletal: No back pain, No joint pain Skin: No change in color, No change in hair/nails Psychiatric/Neurological: Denies Anxiety All Other Systems Reviewed Negative Unless Noted: Yes Past Esovhkv-Clonbh-Npiwmb Hx Patient Social History Tobacco Use?: No Substance use?: No Alcohol Use?: No Immunizations Up To Date Tetanus Booster (TDap): Unknown First/Initial COVID19 Vaccinat: MAY 2020 Second COVID19 Vaccination Adalid: JUNE 2020 Third COVID19 Vaccination Date: MAY 2020 COVID19 Vaccine 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: [employer] Seasonal Allergies Seasonal Allergies: Yes Past Medical History Surgery/Hospitalization HX: RIGHT HIP SURGERYCARDIOVERSIONS Surgeries: Yes Orthopedic, Prostatectomy Respiratory: Yes Sleep Apnea, COPD Currently Using CPAP: Yes Currently Using BIPAP: No Cardiac: Yes Atrial Fibrillation Neurological: No Genitourinary: Yes Renal Failure Gastrointestinal: Yes Gastroesophageal Reflux Musculoskeletal: Yes (RIGHT HIP SURGERY) Arthritis, Gout Endocrine: No HEENT: Yes Cataract Loss of Vision: Denies Hearing Impairment: Denies, Bilateral Hearing Aide Cancer: Yes Prostate, Lymphoma Did You Recieve Any Treatments: Yes What Type of Treatment Did You: Radiation Psychosocial: No Integumentary: Yes (DERMATITIS ON FACE) Blood Disorders: Yes Adverse Reaction/Blood Tranf: Yes (THINKS HE HAS HAD A RXN, BUT UNSURE WHAT) Family Medical History Cardiovascular disease 19 MOTHER Diabetes mellitus 19 MOTHER FH: prostate cancer G8 BROTHER Myocardial infarction 19 FATHER No Pertinent Family Hx Physical Exam Vital Signs Vital Signs - First Documented 06/28/21 15:40 Temp 36.3 Pulse 156 Resp 16 B/P (MAP) 126/86 (99) Pulse Ox 96 O2 Delivery Room Air Capillary Refill : Less Than 3 Seconds Height, Weight, BMI Height: 5'6.00" Weight: 173lbs. 6.4oz. [id number]; 27.00 BMI Method: General Appearance: No Apparent Distress, WD/WN HEENT: PERRL/EOMI, TMs Normal, Normal ENT Inspection, Pharynx Normal Neck: Full Range of Motion, Normal Inspection, Non Tender, Supple Respiratory: Chest Non Tender, Lungs Clear, Normal Breath Sounds, No Accessory Muscle Use, No Respiratory Distress Cardiovascular: Irregularly Irregular Gastrointestinal: Normal Bowel Sounds, No Organomegaly, No Pulsatile Mass, Non Tender Extremity: Normal Capillary Refill, Normal Inspection, Normal Range of Motion Neurologic/Psychiatric: Alert, Oriented x3, No Motor/Sensory Deficits Skin: Normal Color, Warm/Dry Procedures/Interventions Patient Education: Explained Benefits, Explained Risks, Pt. Ack. Understanding Breath Sounds per Auscultation: Wheezes Heart Sounds per Auscultation: Irregular Airway Exam: Mouth opens >2 fingers Progress/Results/Core Measures Results/Orders Lab Results Laboratory Tests Test 06/28/21 15:50 Range/Units White Blood Count 13.3 H 4.3-11.0 10^3/uL Red Blood Count 4.33 4.30-5.52 10^6/uL Hemoglobin 14.8 13.3-17.7 g/dL Hematocrit 43 40-54 % Mean Corpuscular Volume 100 H 80-99 fL Mean Corpuscular Hemoglobin 34 25-34 pg Mean Corpuscular Hemoglobin Concent 34 32-36 g/dL Red Cell Distribution Width 13.8 10.0-14.5 % Platelet Count 150 130-400 10^3/uL Mean Platelet Volume 10.6 9.0-12.2 fL Immature Granulocyte % (Auto) 0 % Neutrophils (%) (Auto) 63 42-75 % Lymphocytes (%) (Auto) 30 12-44 % Monocytes (%) (Auto) 6 0-12 % Eosinophils (%) (Auto) 1 0-10 % Basophils (%) (Auto) 0 0-10 % Neutrophils # (Auto) 8.4 H 1.8-7.8 10^3/uL Lymphocytes # (Auto) 4.0 1.0-4.0 10^3/uL Monocytes # (Auto) 0.8 0.0-1.0 10^3/uL Eosinophils # (Auto) 0.1 0.0-0.3 10^3/uL Basophils # (Auto) 0.0 0.0-0.1 10^3/uL Immature Granulocyte # (Auto) 0.1 0.0-0.1 10^3/uL Prothrombin Time 13.9 12.2-14.7 SEC INR Comment 1.0 0.8-1.4 Activated Partial Thromboplast Time 28 24-35 SEC Sodium Level 137 135-145 MMOL/L Potassium Level 4.1 3.6-5.0 MMOL/L Chloride Level 102 98-107 MMOL/L Carbon Dioxide Level 21 21-32 MMOL/L Anion Gap 14 5-14 MMOL/L Blood Urea Nitrogen 28 H 7-18 MG/DL Creatinine 1.67 H 0.60-1.30 MG/DL Estimat Glomerular Filtration Rate 40 BUN/Creatinine Ratio 17 Glucose Level 159 H 70-105 MG/DL Calcium Level 9.6 8.5-10.1 MG/DL Corrected Calcium 9.7 8.5-10.1 MG/DL Magnesium Level 2.0 1.6-2.4 MG/DL Total Bilirubin 0.6 0.1-1.0 MG/DL Aspartate Amino Transf (AST/SGOT) 30 5-34 U/L Alanine Aminotransferase (ALT/SGPT) 30 0-55 U/L Alkaline Phosphatase 81 40-136 U/L Myoglobin 163.2 H 10.0-92.0 NG/ML Troponin I 0.096 H <0.028 NG/ML B-Type Natriuretic Peptide 521.3 H <100.0 PG/ML Total Protein 6.8 6.4-8.2 GM/DL Albumin 3.9 3.2-4.5 GM/DL My Orders Orders - MALENA TORRE Diltiazem Injection (Cardizem Injection) (06/28/21 16:00) Cbc With Automated Diff (06/28/21 16:) Magnesium (06/28/21 16:) Chest 1 View, Ap/Pa Only (06/28/21 16:) Ekg Tracing (06/28/21 16:) Comprehensive Metabolic Panel (06/28/21 16:) Myoglobin Serum (06/28/21 16:) Protime With Inr (06/28/21 16:) Partial Thromboplastin Time (06/28/21 16:) O2 (06/28/21 16:) Monitor-Rhythm Ecg Trace Only (06/28/21 16:) Lipid Panel (06/29/21 06:00) Ed Iv/Invasive Line Start (06/28/21 16:) Bnp Delmy (06/28/21 16:) Troponin I Phelps (06/28/21 16:) Diltiazem Drip Pre-Mix (Cardizem Drip Pr (06/28/21 16:29) Ns Iv 1000 Ml (Sodium Chloride 0.9%) (06/28/21 17:03) Diltiazem Drip Pre-Mix (Cardizem Drip Pr (06/28/21 17:03) Ed Admission (Communication) (06/28/21 17:12) Medications Given in ED Current Medications Medications Dose Ordered Sig/Yonny Route Start Time Stop Time Status Last Admin Dose Admin Diltiazem HCl 10 mg ONCE ONCE IVP 06/28/21 16:00 06/28/21 16:01 DC 06/28/21 16:10 10 MG Vital Signs/I&O 06/28/21 15:40 Temp 36.3 Pulse 156 Resp 16 B/P (MAP) 126/86 (99) Pulse Ox 96 O2 Delivery Room Air Blood Pressure Mean: 99 Departure Communication (Admissions) Time/Spoke to Admitting Phy: 17:20 Patient presents to ED with tachycardia regular rhythm. History of A. fib with RVR. Currently on Eliquis daily and carvedilol 6.255 mg. History of COPD, CHF, coronary artery disease. Patient is currently asymptomatic. Heart rate 142 on arrival with extreme tachycardia with wide complex. Concerning for A. fib with RVR pattern. Patient was given a bolus of Cardizem with improvement of heart rate to 100-110. Patient was discussed with cardiology Dr. Gómez recommend started on a Cardizem drip at 10. IV bolus to prevent hypotension. History of chronic kidney disease. Slight elevated troponin 0 0.096 with elevated BNP 521. History of elevated troponin in the past with type II NSTEMI. Recent cardiac stress test without severe cardiac disease. Patient was discussed with hospitalist who accepts patient. Patient primary care physician is Dr. Malik. patient is a full code Impression Primary Impression: Atrial fibrillation with rapid ventricular response Disposition: ADMITTED INPATIENT Condition: Stable Admissions Decision to Admit Reason: Admit from ER (General) Decision to Admit/Date: Jun 28, 2021 Time/Decision to Admit Time: 17:11 Departure-Patient Inst. Referrals: LEE FERNANDEZ DO (PCP/Family) Primary Care Physician MALENA TORRE Jun 28, 2021 16:07
[2021-06-28 16:14] LABS: ALBUMIN 3.9 GM/DL (3.2-4.5); POTASSIUM 4.1 MMOL/L (3.6-5.0)
[2021-06-28 16:15] LABS: CALCIUM 9.6 MG/DL (8.5-10.1)
[2021-06-28 16:16] LABS: PROTHROMBIN TIME PATIENT 13.9 SEC (12.2-14.7); TOTAL PROTEIN 6.8 GM/DL (6.4-8.2)
[2021-06-28 16:18] LABS: BILIRUBIN,TOTAL 0.6 MG/DL (0.1-1.0)
[2021-06-28 16:20] LABS: CREATININE SERUM 1.67 MG/DL (0.60-1.30)
[2021-06-28] MEDS ORDERED: dilTIAZem DRIP PRE-MIX 125 ML IV STA (16:29)
--- NOTE | 2021-06-28 16:30 | Diagnostic Imaging Report ---
INDICATION: Irregular heartbeat. TIME OF EXAM: 4:06 p.m. COMPARISON: Correlation is made with prior chest from 05/20/2021. FINDINGS: Heart size is normal. There has been improved aeration of both lungs since the prior exam. Lungs appear to be fairly clear apart from some mild interstitial changes. No effusion or pneumothorax is seen. IMPRESSION: Overall significantly improved aeration of both lungs when compared with examination from 05/20/2021. Dictated by: Dictated on workstation # [id number]
[2021-06-28] MEDS ORDERED: NS IV 1000 ML 1,000 ML IV STA (17:03)
[2021-06-28] MEDS: dilTIAZem DRIP PRE-MIX 125 ML IV STA ×2 (17:20→17:24)
[2021-06-28] MEDS ORDERED: ANTACID SUSP 30 ML UDC (MYLANTA) PO PRN (18:45)
[2021-06-28] MEDS ORDERED: dilTIAZem DRIP PRE-MIX 125 ML IV SCH (18:45)
[2021-06-28] MEDS ORDERED: ONDANSETRON 4 MG (ZOFRAN) ORAL DISSOLVE TAB PO PRN (18:45)
[2021-06-28] MEDS ORDERED: MELATONIN 3 MG TABLET PO PRN (18:45)
[2021-06-28] MEDS ORDERED: ONDANSETRON 4 MG/2 ML (SDV) Z0FRAN IV PRN (18:45)
[2021-06-28] MEDS ORDERED: ACETAMINOPHEN 325 MG TABLET PO PRN (18:45)
[2021-06-28] MEDS ORDERED: diphenhydrAMINE 25 MG TAB (BENADRYL) PO PRN (18:45)
[2021-06-28] MEDS ORDERED: polyethylene glycoL POWDER 17 GM (MIRALAX) PACK PO PRN (18:45)
[2021-06-28] MEDS ORDERED: PATIENT MAY USE OWN MEDS, ALL PO SCH (18:45)
[2021-06-28 20:26] VITALS: BP 126/86
[2021-06-28] MEDS ORDERED: AMIODARONE FOR BOLUS 150 MG in NS (IVPB) 100 ML IV SCH (20:37)
[2021-06-28] MEDS ORDERED: LACTATED RINGERS 1,000 ML IV SCH (20:45)
[2021-06-28] MEDS ORDERED: LACTATED RINGERS 1,000 ML IV ONE (20:47)
[2021-06-28] MEDS ORDERED: AMIODARONE 450 MG/9 ML (CORDARONE) VIAL IV ONE ×2 (20:48→21:22)
[2021-06-28] MEDS ORDERED: AMIODARONE (BOLUS) 150 MG/3 ML IV ONE (20:48)
[2021-06-28] MEDS ORDERED: NS (IVPB) 250 ML ONE (20:50)
[2021-06-28] MEDS ORDERED: D5W 100 ML IVPB 0 ML IV ONE (20:50)
[2021-06-28] MEDS: APIXABAN 5 MG (ELIQUIS) TABLET PO SCH (20:56)
[2021-06-28] MEDS ORDERED: NS (IVPB) 100 ML ONE (21:00)
[2021-06-28] MEDS ORDERED: RT-ALBUTEROL HFA 8.5 GM INHALER IH PRN (21:15)
[2021-06-28] MEDS ORDERED: D5W IV SOLUTION (EXCEL) 250 ML IV ONE (21:23)
[2021-06-28] MEDS: AMIODARONE INJECTION 450 MG in D5W IV SOLUTION (EXCEL) 250 ML IV SCH ×2 (21:30→21:34)
[2021-06-29] MEDS ORDERED: NS IV 1000 ML 1,000 ML ONE (03:32)
[2021-06-29] MEDS: AMIODARONE INJECTION 450 MG in D5W IV SOLUTION (EXCEL) 250 ML IV SCH (04:53)
[2021-06-29 05:04] LABS: BASOPHILS % (AUTO) 0 % (0-10); EOSINOPHILS # (AUTO) 0.2 10^3/uL (0.0-0.3); EOSINOPHILS % (AUTO) 2 % (0-10); HEMATOCRIT 40 % (40-54); HEMOGLOBIN 13.5 g/dL (13.3-17.7); LYMPHOCYTES # (AUTO) 3.4 10^3/uL (1.0-4.0); LYMPHOCYTES % (AUTO) 31 % (12-44); MEAN CORPUSCULAR HEMOGLOBIN 34 pg (25-34); MEAN CORPUSCULAR HGB CONC 34 g/dL (32-36); MEAN CORPUSCULAR VOLUME 99 fL (80-99); MEAN PLATELET VOLUME 10.7 fL (9.0-12.2); MONOCYTES % (AUTO) 9 % (0-12); NEUTROPHILS # (AUTO) 6.2 10^3/uL (1.8-7.8); NEUTROPHILS % (AUTO) 57 % (42-75); PLATELET COUNT 123 10^3/uL (130-400); WHITE BLOOD COUNT 10.9 10^3/uL (4.3-11.0)
[2021-06-29 05:16] LABS: ALBUMIN 3.3 GM/DL (3.2-4.5); POTASSIUM 3.4 MMOL/L (3.6-5.0)
[2021-06-29 05:17] LABS: CALCIUM 8.8 MG/DL (8.5-10.1)
[2021-06-29 05:18] LABS: TOTAL PROTEIN 5.9 GM/DL (6.4-8.2)
[2021-06-29 05:20] LABS: BILIRUBIN,TOTAL 0.9 MG/DL (0.1-1.0)
[2021-06-29 05:22] LABS: CREATININE SERUM 1.39 MG/DL (0.60-1.30)
[2021-06-29 05:24] LABS: BILIRUBIN,DIRECT 0.3 MG/DL (0.0-0.3); BILIRUBIN,INDIRECT 0.6 MG/DL
[2021-06-29] MEDS: POTASSIUM CL 10MEQ/50ML IVPB 50 ML IV SCH (05:24)
[2021-06-29 05:25] LABS: MAGNESIUM 1.8 MG/DL (1.6-2.4)
[2021-06-29] MEDS: KCL 20 MEQ TAB (K-DUR) PO SCH (05:25)
[2021-06-29] MEDS: MAGNESIUM 1 GM/100 ML IVPB 100 ML IV SCH (05:26)
[2021-06-29] MEDS: APIXABAN 5 MG (ELIQUIS) TABLET PO SCH ×2 (08:25→20:36)
--- NOTE | 2021-06-29 08:54 | Consultation-Cardiology ---
HPI-Cardiology Cardiology Consultation: Date of Consultation 06/29/21 Date of Admission 06/28/21 Attending Physician Amina Yeboah MD Admitting Physician Villa Ramirez DO Consulting Physician JUSTO LOPEZ JR, MD HPI: Time Seen by a Provider: 08:50 Chief Complaint: Reason for consultation: Atrial fibrillation and elevated troponin level. I had the pleasure of seeing Maurisio in the intensive care unit at [facility] in [place], [place] this morning. He is known to me from the office. He has a history of chronic heart failure with preserved ejection fraction as well as paroxysmal atrial fibrillation among other issues. Yesterday he had finished lunch and suddenly felt palpitations with a sensation of a rapid heartbeat. This made him feel short of breath. He denies any other associated symptoms. His had a doctor's appointment so he went with her to her appointment and when she was finished, he still had this sense of a rapid heartbeat with shortness of breath. At that time, he came to the emergency room. He was found to be in atrial fibrillation with a rapid ventricular rate. He was started on intravenous diltiazem infusion and admitted to the intensive care unit. Overnight, he developed some low blood pressures and the diltiazem was discontinued. At some point during the night, he was also started on amiodarone infusion. This morning he is feeling better but not completely back to normal. He still has some palpitations and mild shortness of breath at rest. He denies chest discomfort, paroxysmal nocturnal dyspnea, orthopnea, lightheadedness, syncope, or ankle edema. Certain portions of this document may have been dictated utilizing voice recognition technology. Inherent to this technology, typographical and grammatical errors may exist. As much as I am diligent to identify and correct these mistakes, some errors may remain in the document. Review of Systems-Cardiology Review of Systems Other comments Review of 10 organ systems is as per the history of present illness, otherwise negative. All Other Systems Reviewed Negative Unless Noted: Yes JUX-Oqpqix-Ehvjfe Hx Patient Social History Marrital Status: 2nd Hand Smoke Exposure: No Have you traveled recently?: No Alcohol Use?: No Pt feels they are or have been: No Immunizations Up To Date Tetanus Booster (TDap): Unknown Date of Pneumonia Vaccine: Nov 17, 2010 Date of Influenza Vaccine: Dec 17, 2020 Past Medical History PMH As described under Assessment. Family Medical History Family History: Cardiovascular disease 19 MOTHER Diabetes mellitus 19 MOTHER FH: prostate cancer G8 BROTHER Myocardial infarction 19 FATHER Allergies and Home Medications Allergies Coded Allergies: vancomycin (Verified Allergy, Severe, 05/28/19) Pt states his face got really red and he went into ER for reaction. gemfibrozil (Verified Allergy, Unknown, 05/27/19) valdecoxib (Verified Allergy, Unknown, 05/27/19) Patient Home Medication List Home Medication List Reviewed: Yes Allopurinol (Allopurinol) 300 Mg Tablet, 300 MG PO DAILY, (Reported) Entered as Reported by: LISA GEE on 11/22/18 132 Apixaban (Eliquis) 2.5 Mg Tablet, 2.5 MG PO BID, (Reported) Entered as Reported by: LISA GEE on 11/22/18 132 Atorvastatin Calcium (Atorvastatin Calcium) 40 Mg Tablet, 40 MG PO DAILY, (Reported) Entered as Reported by: LISA GEE on 11/22/18 132 Carboxymethylcellulose Sodium (Refresh Tears) 15 Ml Drops, 1 DROP OD BID, (Reported) Entered as Reported by: CATHERINE WALKER on 03/14/21 1117 Carvedilol (Carvedilol) 6.25 Mg Tablet, 6.25 MG PO BID, (Reported) Entered as Reported by: LISA GEE on 11/22/18 132 Cholecalciferol (Vitamin D3) (Vitamin D3) 25 Mcg Capsule, 25 MCG PO HS, (Reported) Entered as Reported by: CATHERINE WALKER on 05/18/20 1107 Diphenhydramine HCl (Allergy Relief) 25 Mg Capsule, 25 MG PO HS PRN for ALLERGIES, (Reported) Entered as Reported by: LISA GEE on 11/22/18 132 Fluticasone Propion/Salmeterol (Fluticasone-Salmeterol 100-50) 1 Each Blst.w.dev, 1 PUFF INH BID, (Reported) Entered as Reported by: CATHERINE WALKER on 05/18/20 1107 Fluticasone Propionate (Flonase Allergy Relief) 9.9 Ml [place].susp, 1 SPRAY NS HS PRN for CONGESTION, (Reported) Entered as Reported by: LISA GEE on 11/22/18 1321 Furosemide (Furosemide) 20 Mg Tablet, 40 MG PO DAILY, (Reported) Entered as Reported by: LISA GEE on 11/22/18 132 Magnesium Oxide (Magnesium Oxide) 250 Mg Tablet, 250 MG PO DAILY, (Reported) Entered as Reported by: CATHERINE WALKER on 05/18/20 1110 Methotrexate Sodium (Methotrexate) 2.5 Mg Tablet, 10 MG PO THURS, (Reported) Entered as Reported by: LISA GEE on 11/25/18 0830 [place]-3/Dha/Epa/Dpa/Fish Oil ([place]-3 2100 Softgel) 1 Each Capsule, 1 EACH PO HS, (Reported) Entered as Reported by: CATHERINE WALKER on 05/18/20 110 Omeprazole (Omeprazole) 40 Mg Capsule.dr, 40 MG PO DAILY, (Reported) Entered as Reported by: LISA GEE on 11/22/18 132 Pedi Mv No.79/Ferrous Fumarate (Flintstones with Iron Tab Chew) 18 Mg Tab.chew, 18 MG PO HS, (Reported) Entered as Reported by: LISA GEE on 11/22/18 132 Prednisone (Prednisone) 5 Mg Tablet, 5 MG PO DAILY, (Reported) Entered as Reported by: LISA GEE on 11/22/18 132 Tamsulosin HCl (Flomax) 0.4 Mg Cap, 0.4 MG PO DAILY, (Reported) Entered as Reported by: CATHERINE WALKER on 05/18/20 1107 Vit C/E/Zn/Coppr/Lutein/Zeaxan (Preservision Areds 2 Softgel) 1 Each Capsule, 1 EACH PO BID, (Reported) Entered as Reported by: CATHERINE WALKER on 03/14/21 1117 Vitamin B Complex (Vitamin B Complex) 1 Each Tablet, 1 EACH PO DAILY, (Reported) Entered as Reported by: CATHERINE WALKER on 05/19/21 1051 Zinc Amino Acid Chelate (Zinc) 50 Mg Tablet, 50 MG PO DAILY, (Reported) Entered as Reported by: LISA GEE on 11/22/18 1321 [Jessy's Leg Cramps] , 1 TAB SL HS PRN for CRAMPS, (Reported) Entered as Reported by: LISA GEE on 11/22/18 1321 Exam Vital Signs Vital Signs Date Time Temp Pulse Resp B/P (MAP) Pulse Ox O2 Delivery O2 Flow Rate FiO2 06/29/21 09:48 64 06/29/21 08:20 Room Air 06/29/21 08:00 36.8 06/29/21 06:00 16 123/77 91 06/28/21 20:26 21 Physical Exam General: Alert. No acute distress. Well nourished and appears stated age. Eye: Extraocular movements are intact. Conjunctivae are clear. There are no xanthelasma. HENT: Normocephalic. Atraumatic. Carotid pulsations 2/2 without bruits. Neck: Jugular venous pressure does not appear elevated. No thyromegaly appreciated. Respiratory: Lungs have some mild scattered wheezes bilaterally. Respirations are non-labored. Breath sounds are equal. Symmetrical chest wall expansion. Cardiovascular: Tachycardia with the irregular rhythm. Distant S1/S2. 2/6 systolic ejection murmur. No gallop. Point of maximal impulse is not appear displaced. Good pulses equal in all extremities. No edema. Gastrointestinal: Soft. Normal bowel sounds. Skin: Skin turgor is normal. There is no pallor. Musculoskeletal: No kyphosis or scoliosis appreciated. Neurologic: Alert and oriented to person, place, time. Cranial nerves 3-12 appear grossly intact. The patient has good motor tone strength in the upper and lower extremities bilaterally. Psychiatric: Cooperative. Appropriate mood & affect. Labs Laboratory Tests Test 06/28/21 15:50 06/28/21 21:10 06/29/21 04:55 06/29/21 07:26 Range/Units White Blood Count 13.3 H 10.9 4.3-11.0 10^3/uL Red Blood Count 4.33 4.01 L 4.30-5.52 10^6/uL Hemoglobin 14.8 13.5 13.3-17.7 g/dL Hematocrit 43 40 40-54 % Mean Corpuscular Volume 100 H 99 80-99 fL Mean Corpuscular Hemoglobin 34 34 25-34 pg Mean Corpuscular Hemoglobin Concent 34 34 32-36 g/dL Red Cell Distribution Width 13.8 13.7 10.0-14.5 % Platelet Count 150 123 L 130-400 10^3/uL Mean Platelet Volume 10.6 10.7 9.0-12.2 fL Immature Granulocyte % (Auto) 0 1 % Neutrophils (%) (Auto) 63 57 42-75 % Lymphocytes (%) (Auto) 30 31 12-44 % Monocytes (%) (Auto) 6 9 0-12 % Eosinophils (%) (Auto) 1 2 0-10 % Basophils (%) (Auto) 0 0 0-10 % Neutrophils # (Auto) 8.4 H 6.2 1.8-7.8 10^3/uL Lymphocytes # (Auto) 4.0 3.4 1.0-4.0 10^3/uL Monocytes # (Auto) 0.8 1.0 0.0-1.0 10^3/uL Eosinophils # (Auto) 0.1 0.2 0.0-0.3 10^3/uL Basophils # (Auto) 0.0 0.0 0.0-0.1 10^3/uL Immature Granulocyte # (Auto) 0.1 0.1 0.0-0.1 10^3/uL Prothrombin Time 13.9 12.2-14.7 SEC INR Comment 1.0 0.8-1.4 Activated Partial Thromboplast Time 28 24-35 SEC Sodium Level 137 140 135-145 MMOL/L Potassium Level 4.1 3.4 L 3.6-5.0 MMOL/L Chloride Level 102 106 98-107 MMOL/L Carbon Dioxide Level 21 19 L 21-32 MMOL/L Anion Gap 14 15 H 5-14 MMOL/L Blood Urea Nitrogen 28 H 26 H 7-18 MG/DL Creatinine 1.67 H 1.39 H 0.60-1.30 MG/DL Estimat Glomerular Filtration Rate 40 49 BUN/Creatinine Ratio 17 19 Glucose Level 159 H 124 H 70-105 MG/DL Calcium Level 9.6 8.8 8.5-10.1 MG/DL Corrected Calcium 9.7 8.5-10.1 MG/DL Magnesium Level 2.0 1.8 1.6-2.4 MG/DL Total Bilirubin 0.6 0.9 0.1-1.0 MG/DL Aspartate Amino Transf (AST/SGOT) 30 31 5-34 U/L Alanine Aminotransferase (ALT/SGPT) 30 26 0-55 U/L Alkaline Phosphatase 81 71 40-136 U/L Myoglobin 163.2 H 10.0-92.0 NG/ML Troponin I 0.096 H 0.256 H 1.834 *H <0.028 NG/ML B-Type Natriuretic Peptide 521.3 H <100.0 PG/ML Total Protein 6.8 5.9 L 6.4-8.2 GM/DL Albumin 3.9 3.3 3.2-4.5 GM/DL Direct Bilirubin 0.3 0.0-0.3 MG/DL Indirect Bilirubin 0.6 MG/DL Thyroid Stimulating Hormone (TSH) 2.83 0.35-4.94 UIU/ML Radiology ELECTROCARDIOGRAM (06/13/2021): Sinus rhythm with left anterior hemiblock and right bundle branch block with probable left ventricular hypertrophy. 2 VIEW CHEST X-RAY (05/16/2021): 1. Patchy bilateral infiltrates. ELECTROCARDIOGRAM (05/16/2021): Sinus rhythm with left anterior hemiblock, right bundle branch block and left ventricular hypertrophy with repolarization abnormality. ELECTROCARDIOGRAM (04/12/2021): Sinus rhythm with one isolated premature ventricular complex, left anterior hemiblock, right bundle branch block and probable left ventricular hypertrophy. LABS (04/06/2021): Sodium 138. Potassium 3.4. Glucose 120. Creatinine 1.54. GFR 43. LABS (03/29/2021): Sodium 140. Potassium 3.7. Creatinine 1.3. GFR 52. 2 VIEW CHEST X-RAY (03/29/2021): 1. Improving changes of congestive failure when compared to study from 03/13/2021. ELECTROCARDIOGRAM (03/29/2021): Sinus rhythm with left ventricular hypertrophy and left anterior hemiblock. LABS (03/15/2021): Sodium 138. Potassium 3.6. Creatinine 1.25. GFR 55. Glucose 116. Hemoglobin 12.7. Platelets 147,000. CARDIAC CATHETERIZATION (03/14/2021): 1. Normal left heart pressures with approximately a 20 mmHg pressure gradient upon pullback across aortic valve which is consistent with the aortic stenosis the patient is known to have by echocardiogram. 2. Angiographically normal-appearing coronary arteries in a right dominant system. 3. The patient is known to have normal left ventricular systolic function with an estimated ejection fraction of 55-60% by echocardiogram performed earlier today. 5. In light of these findings, the patient may have had a type II non-ST elevation myocardial infarction related to supply/demand mismatch from the extreme tachycardia that occurred last evening when he was in atrial fibrillation. ECHOCARDIOGRAM (03/14/2021): 1. This is a technically difficult study due to poor image quality secondary to patient's body habitus. 2. Normal left ventricular chamber size, wall thickness and systolic function with an estimated ejection fraction of 55-60%. Regional wall motion abnormalities cannot be excluded due to poor endocardial definition. 3. The left ventricular diastolic parameters are consistent with grade 2 diastolic dysfunction. 4. The right ventricle is normal in size with mildly reduced function. TAPSE 1.4 cm. 5. The left atrium is moderately dilated with a volume index of 46 mL/m. 6. There is mild mitral annular calcification. 7. There is mild mitral regurgitation. 8. There is moderate aortic stenosis with a mean gradient of 30 mmHg, a peak gradient of 54 mmHg, a peak velocity of 3.7 m/s and a calculated aortic valve area of 0.9 cm. 9. The pulmonary artery pressure cannot be estimated on this study due to inadequate tricuspid regurgitant envelope. LABS (03/14/2021): Troponin 3.065. Triglycerides 218. Total cholesterol 110. HDL 30. Direct LDL 48. CHEST 1 VIEW PA ONLY (03/13/2021): 1. Findings most likely reflects extensive pulmonary edema with cardiomegaly and vascular congestion. ELECTROCARDIOGRAM (03/13/2021): Sinus rhythm with left anterior hemiblock, right bundle branch block and left ventricular hypertrophy with repolarization abnormality. ELECTROCARDIOGRAM (03/13/2021): Wide complex tachycardia, probably atrial fibrillation with a ventricular rate of 179 bpm with left anterior hemiblock and right bundle branch block. ECG Impression ECG Comment Electrocardiogram from the emergency room showed atrial fibrillation with a rapid ventricular rate. Diagnosis/Problems Diagnosis/Problems (1) Persistent atrial fibrillation Assessment & Plan: He had been remaining in sinus rhythm on beta-aydin alone. Now he has recurrent atrial fibrillation that seems to be unprovoked. As such, I will start him on antiarrhythmic drug with sotalol 80 mg once daily. This dose has been renal adjusted due to his chronic kidney disease. We will continue apixaban for stroke prophylaxis. I will put his carvedilol on hold for the time being. If he does not convert to sinus rhythm with the sotalol, he may need a cardioversion on Sunday. (2) NSTEMI (non-ST elevated myocardial infarction) Status: Acute Assessment & Plan: He probably had a type II non-ST elevation myocardial infarction due to the tachycardia causing supply/demand mismatch. He underwent a cardiac catheterization in 2020 that did not show any significant coronary artery disease. (3) Aortic stenosis Assessment & Plan: He has moderate aortic stenosis which I have been following as an outpatient. (4) Chronic diastolic heart failure Assessment & Plan: His chest x-ray was clear. I suspect his dyspnea is related to the tachycardia and should improve when his heart rates come down. (5) Stage 3 chronic kidney disease Assessment & Plan: We will need to watch his renal function closely. His creatinine has hovered around 1.5 and given his age over 79, he is on the renal adjusted dose of apixaban. (6) Primary hypertension Assessment & Plan: He developed some hypotension overnight on the intravenous diltiazem which has now been discontinued. We will be starting sotalol which can have some antihypertensive effects. I have put his carvedilol on hold until we see how he responds to the sotalol. (7) Mixed hyperlipidemia Assessment & Plan: I ordered his home dose of atorvastatin which should be continued. Problem Qualifiers (1) Stage 3 chronic kidney disease: Chronic kidney disease stage 3 subtype: stage 3a (GFR 45-59) Qualified Codes: N18.31 - Chronic kidney disease, stage 3a JUSTO LOPEZ JR, MD Jun 29, 2021 08:54
[2021-06-29] MEDS ORDERED: KCL 20 MEQ TAB (K-DUR) PO ONE (09:00)
[2021-06-29] MEDS: SOTALOL 80 MG (BETAPACE) TAB PO SCH (09:48)
[2021-06-29] MEDS ORDERED: MULT-1076 PO (10:34)
--- NOTE | 2021-06-29 11:25 | Tele-ICU Progress Note ---
Progress Note Video assessment done , Hemodynamically stable Available charting reviewed PAF - as per cards rate controlled , on AC NO TELE-ICU CONSULT REQUESTED CONTINUE TO MONITOR PER USUAL TELE-ICU PROTOCOL No need for Tele-ICU interventions Plans as delineated by bedside physicians / consultants Focused Exam Height, Weight, BMI Height: 5'6.00" Weight: 173lbs. 6.4oz. [id number]; 28.97 BMI Method: RASTA CAMPOS MD Jun 29, 2021 11:25
[2021-06-29] MEDS: RT-ALBUTEROL SULF 2.5 MG/3 ML PRE-MIX VIAL INH PRN (14:21)
--- NOTE | 2021-06-29 17:29 | History & Physical-Hospitalist ---
History of Present Illness HPI/Chief Complaint Maurisio Edmondson is an 85 year old male with PMH HTN, HLD, COPD, GERD, BPH, AFib, CKD 3a, who presented with palpitations. He also had shortness of breath. He denies chest pain. He has otherwise been in his normal state of health. He denies fevers and chills. He denies cough. He denies abdominal pain. He denies nausea and vomiting. He denies diarrhea. He denies dysuria. He has been taking his medicaitons as prescribed. Source: patient Exam Limitations: no limitations Date Seen 06/29/21 Time Seen by a Provider: 09:30 Attending Physician Lalitha Yeboah MD PCP Villa Ramirez DO Referring Physician Date of Admission Jun 28, 2021 at 17:13 Home Medications & Allergies Home Medications Reviewed patient Home Medication Reconciliation performed by pharmacy medication reconciliations industrial waste treatment technician and/or nursing. Patients Allergies have been reviewed. Allergies Allergies Coded Allergies vancomycin (Verified Allergy, Severe, 05/28/19) Pt states his face got really red and he went into ER for reaction. gemfibrozil (Verified Allergy, Unknown, 05/27/19) valdecoxib (Verified Allergy, Unknown, 05/27/19) Past Cmfuovy-Xemfzx-Oknvum Hx Patient Social History Marrital Status: Tobacco Use?: No Use of E-Cig and/or Vaping dev: No Substance use?: No Alcohol Use?: No Pt feels they are or have been: No Immunizations Up To Date Date of Influenza Vaccine: Dec 17, 2020 First/Initial COVID19 Vaccinat: MAY 2020 Second COVID19 Vaccination Adalid: JUNE 2020 Tetanus Booster (TDap): More Than 5 Years Hepatitis A: No Hepatitis B: No Date of Pneumonia Vaccine: Nov 17, 2010 Seasonal Allergies Seasonal Allergies: Yes Current Status Advance Directives: Yes Communicates: Verbally Primary Language: Scottish Preferred Spoken Language: Scottish Sensory deficits: Hearing impairment Implanted or Applied Medical D: None Past Medical History Surgeries: Orthopedic, Prostatectomy Sleep Apnea, COPD Currently Using CPAP: Yes Currently Using BIPAP: No Atrial Fibrillation Renal Failure Gastroesophageal Reflux Arthritis, Gout Cataract Loss of Vision: Denies Hearing Impairment: Denies, Bilateral Hearing Aide Prostate, Lymphoma Did You Recieve Any Treatments: Yes What Type of Treatment Did You: Radiation Blood Disorders: Yes Adverse Reaction/Blood Tranf: Yes (THINKS HE HAS HAD A RXN, BUT UNSURE WHAT) Family Medical History Cardiovascular disease 19 MOTHER Diabetes mellitus 19 MOTHER FH: prostate cancer G8 BROTHER Myocardial infarction 19 FATHER No Pertinent Family Hx Review of Systems Constitutional: no symptoms reported EENTM: no symptoms reported Respiratory: short of breath Cardiovascular: palpitations Gastrointestinal: no symptoms reported Genitourinary: no symptoms reported Musculoskeletal: no symptoms reported Skin: no symptoms reported Psychiatric/Neurological: No Symptoms Reported Physical Exam Physical Exam Vital Signs Vital Signs - First Documented 06/28/21 06/28/21 15:40 20:26 Temp 36.3 Pulse 156 Resp 16 B/P (MAP) 126/86 (99) Pulse Ox 96 O2 Delivery Room Air FiO2 21 Capillary Refill : Less Than 3 Seconds Height, Weight, BMI Height: 5'6.00" Weight: 173lbs. 6.4oz. [id number]; 28.97 BMI Method: General Appearance: No Apparent Distress, WD/WN HEENT: PERRL/EOMI, Pharynx Normal Neck: Normal Inspection, Supple Respiratory: Lungs Clear, Normal Breath Sounds, No Respiratory Distress Cardiovascular: Regular Rate, Rhythm, No Edema, Systolic Murmur Gastrointestinal: Normal Bowel Sounds, Non Tender, Soft Extremity: Normal Inspection, Non Tender, No Pedal Edema Neurologic/Psychiatric: Alert, Oriented x3, No Motor/Sensory Deficits, Normal Mood/Affect Skin: Normal Color, Warm/Dry Results Results/Procedures Labs Laboratory Tests 06/28/21 15:50 06/29/21 04:55 Patient resulted labs reviewed. Imaging: Reviewed Imaging Report Assessment/Plan Admission Diagnosis AFib with RVR Admission Status: Inpatient Order (span 2 midnights) Reason for Inpatient Admission: IV antiarrhythmics Cardiac monitoring Assessment and Plan AFib with RVR NSTEMI Cardiology consulted Started on IV Cardizem Transitioning to Sotalol Troponin elevated, thought to be demand ischemia HTN HLD COPD GERD BPH CKD 3a Continue home meds Diagnosis/Problems Diagnosis/Problems (1) Atrial fibrillation with rapid ventricular response Status: Acute (2) Encounter for monitoring sotalol therapy Status: Acute (3) NSTEMI (non-ST elevated myocardial infarction) Status: Acute (4) Stage 3 chronic kidney disease Status: Chronic Qualifiers: Chronic kidney disease stage 3 subtype: stage 3a (GFR 45-59) Qualified Codes: N18.31 - Chronic kidney disease, stage 3a Clinical Quality Measures AMI/AHF: ASA po Prior to arrival: LALITHA Yanes MD Jun 29, 2021 17:29
[2021-06-29] MEDS: TAMSULOSIN 0.4 MG (FLOMAX) CAP PO SCH (18:42)
[2021-06-29] MEDS ORDERED: AMIODARONE FOR BOLUS 150 MG in NS (IVPB) 100 ML IV ONE (20:37)
[2021-06-30 04:28] LABS: BASOPHILS % (AUTO) 0 % (0-10); EOSINOPHILS # (AUTO) 0.2 10^3/uL (0.0-0.3); EOSINOPHILS % (AUTO) 2 % (0-10); HEMATOCRIT 42 % (40-54); HEMOGLOBIN 14.2 g/dL (13.3-17.7); LYMPHOCYTES # (AUTO) 3.3 10^3/uL (1.0-4.0); LYMPHOCYTES % (AUTO) 30 % (12-44); MEAN CORPUSCULAR HEMOGLOBIN 34 pg (25-34); MEAN CORPUSCULAR HGB CONC 34 g/dL (32-36); MEAN CORPUSCULAR VOLUME 100 fL (80-99); MEAN PLATELET VOLUME 10.6 fL (9.0-12.2); MONOCYTES % (AUTO) 9 % (0-12); NEUTROPHILS # (AUTO) 6.2 10^3/uL (1.8-7.8); NEUTROPHILS % (AUTO) 57 % (42-75); PLATELET COUNT 131 10^3/uL (130-400); WHITE BLOOD COUNT 10.8 10^3/uL (4.3-11.0)
[2021-06-30 04:50] LABS: POTASSIUM 4.4 MMOL/L (3.6-5.0)
[2021-06-30 04:55] LABS: CREATININE SERUM 1.54 MG/DL (0.60-1.30)
[2021-06-30 04:58] LABS: MAGNESIUM 1.8 MG/DL (1.6-2.4)
[2021-06-30] MEDS: MAGNESIUM 1 GM/100 ML IVPB 100 ML IV SCH (05:18)
[2021-06-30] MEDS: POTASSIUM CL 10MEQ/50ML IVPB 50 ML IV SCH (05:18)
[2021-06-30] MEDS: KCL 20 MEQ TAB (K-DUR) PO SCH (05:19)
[2021-06-30] MEDS: RT-ALBUTEROL SULF 2.5 MG/3 ML PRE-MIX VIAL INH PRN (07:59)
[2021-06-30] MEDS: APIXABAN 5 MG (ELIQUIS) TABLET PO SCH ×2 (08:29→20:40)
[2021-06-30] MEDS: SOTALOL 80 MG (BETAPACE) TAB PO SCH (08:29)
--- NOTE | 2021-06-30 11:41 | Progress Note - Hospitalist ---
Subjective HPI/CC On Admission Date Seen by Provider: Jun 30, 2021 Time Seen by Provider: 09:10 Maurisio Edmondson is an 85 year old male with PMH HTN, HLD, COPD, GERD, BPH, AFib, CKD 3a, who presented with palpitations. He also had shortness of breath. He denies chest pain. He has otherwise been in his normal state of health. He denies f marshall and chills. He denies cough. He denies abdominal pain. He denies nausea and vomiting. He denies diarrhea. He denies dysuria. He has been taking his medicaitons as prescribed. Subjective/Events-last exam He is feeling well. He denies shortness of breath. He denies chest pain and palpitations. Objective Exam Vital Signs Vital Signs Date Time Temp Pulse Resp B/P (MAP) Pulse Ox O2 Delivery O2 Flow Rate FiO2 06/30/21 11:00 59 23 117/59 95 Room Air 06/30/21 07:54 36.9 06/28/21 20:26 21 Capillary Refill : Less Than 3 Seconds General Appearance: No Apparent Distress, Chronically ill Respiratory: Lungs Clear, No Respiratory Distress Cardiovascular: Regular Rate, Rhythm, No Murmur Gastrointestinal: Normal Bowel Sounds, Non Tender, Soft Extremity: Normal Inspection, Non Tender, No Pedal Edema Neurologic/Psychiatric: Alert, Normal Mood/Affect Skin: Normal Color, Warm/Dry Results/Procedures Lab Laboratory Tests 06/30/21 04:20 Patient resulted labs reviewed. Imaging: Reviewed Imaging Report Assessment/Plan Assessment and Plan Assess & Plan/Chief Complaint AFib with RVR NSTEMI Encounter for sotalol monitoring Cardiology consulted Continue Sotalol HTN HLD COPD GERD BPH CKD 3a Continue home meds Diagnosis/Problems Diagnosis/Problems (1) Atrial fibrillation with rapid ventricular response Status: Acute (2) Encounter for monitoring sotalol therapy Status: Acute (3) NSTEMI (non-ST elevated myocardial infarction) Status: Acute (4) Stage 3 chronic kidney disease Status: Chronic Qualifiers: Chronic kidney disease stage 3 subtype: stage 3a (GFR 45-59) Qualified Codes: N18.31 - Chronic kidney disease, stage 3a Clinical Quality Measures AMI/AHF: ASA po Prior to arrival: LALITHA Yanes MD Jun 30, 2021 11:41
--- NOTE | 2021-06-30 17:25 | Cardiology Progress Note ---
Progress Note-Cardiology Events since last exam Date Seen by Provider: Jun 30, 2021 Time Seen by Provider: 17:23 Events since last exam I am following him due to atrial fibrillation. Since initiating therapy with sotalol, he converted to sinus rhythm. When I saw him he was sitting up in the intensive care unit eating fried chicken strips with mashed potatoes and white gravy. He denies any further palpitations. His shortness of breath has improved. He denies chest discomfort, syncope, or ankle edema. Certain portions of this document may have been dictated utilizing voice recognition technology. Inherent to this technology, typographical and grammatical errors may exist. As much as I am diligent to identify and correct these mistakes, some errors may remain in the document. Vitals Last set of Vitals Signs Vital Signs 06/30/21 17:00 Pulse 64 Resp 22 B/P (MAP) 131/87 Pulse Ox 92 O2 Delivery Room Air Labs Labs Laboratory Tests 06/30/21 04:20 Exam Vital Signs Vital Signs Date Time Temp Pulse Resp B/P (MAP) Pulse Ox O2 Delivery O2 Flow Rate FiO2 06/30/21 17:00 64 22 131/87 92 Room Air 06/30/21 16:00 37.0 06/28/21 20:26 21 Physical Exam General: Alert. No acute distress. Eye: No xanthelasma. HENT: Normocephalic. Neck: Jugular venous pressure does not appear elevated. Respiratory: Lungs are clear to auscultation. Respirations are non-labored. Breath sounds are equal. Symmetrical chest wall expansion. Cardiovascular: Normal rate. Regular rhythm. 3/6 high-pitched systolic ejection murmur. No gallop. No edema. Gastrointestinal: Soft. Normal bowel sounds. Skin: Warm. Dry. Neurologic: Alert and oriented to person, place, time. Cranial nerves 3-11 grossly intact. Psychiatric: Cooperative. Appropriate mood & affect. Labs Laboratory Tests Test 06/30/21 04:20 Range/Units White Blood Count 10.8 4.3-11.0 10^3/uL Red Blood Count 4.22 L 4.30-5.52 10^6/uL Hemoglobin 14.2 13.3-17.7 g/dL Hematocrit 42 40-54 % Mean Corpuscular Volume 100 H 80-99 fL Mean Corpuscular Hemoglobin 34 25-34 pg Mean Corpuscular Hemoglobin Concent 34 32-36 g/dL Red Cell Distribution Width 14.0 10.0-14.5 % Platelet Count 131 130-400 10^3/uL Mean Platelet Volume 10.6 9.0-12.2 fL Immature Granulocyte % (Auto) 1 % Neutrophils (%) (Auto) 57 42-75 % Lymphocytes (%) (Auto) 30 12-44 % Monocytes (%) (Auto) 9 0-12 % Eosinophils (%) (Auto) 2 0-10 % Basophils (%) (Auto) 0 0-10 % Neutrophils # (Auto) 6.2 1.8-7.8 10^3/uL Lymphocytes # (Auto) 3.3 1.0-4.0 10^3/uL Monocytes # (Auto) 1.0 0.0-1.0 10^3/uL Eosinophils # (Auto) 0.2 0.0-0.3 10^3/uL Basophils # (Auto) 0.0 0.0-0.1 10^3/uL Immature Granulocyte # (Auto) 0.1 0.0-0.1 10^3/uL Sodium Level 138 135-145 MMOL/L Potassium Level 4.4 3.6-5.0 MMOL/L Chloride Level 104 98-107 MMOL/L Carbon Dioxide Level 19 L 21-32 MMOL/L Anion Gap 15 H 5-14 MMOL/L Blood Urea Nitrogen 27 H 7-18 MG/DL Creatinine 1.54 H 0.60-1.30 MG/DL Estimat Glomerular Filtration Rate 44 BUN/Creatinine Ratio 18 Glucose Level 124 H 70-105 MG/DL Calcium Level 9.0 8.5-10.1 MG/DL Magnesium Level 1.8 1.6-2.4 MG/DL Diagnosis/Problems Diagnosis/Problems (1) Persistent atrial fibrillation Assessment & Plan: He has been remaining in sinus rhythm on sotalol. The dose has been renal adjusted due to his chronic kidney disease. We will continue apixaban for stroke prophylaxis. His carvedilol on hold for the time being. If he remains in sinus, he will not need a cardioversion. I suspect he may be ready for discharge tomorrow. (2) NSTEMI (non-ST elevated myocardial infarction) Status: Acute Assessment & Plan: He probably had a type II non-ST elevation myocardial infarction due to the tachycardia causing supply/demand mismatch. He underwent a cardiac catheterization in 2020 that did not show any significant coronary artery disease. (3) Aortic stenosis Assessment & Plan: He has moderate aortic stenosis which I have been following as an outpatient. (4) Chronic diastolic heart failure Assessment & Plan: His chest x-ray was clear. I suspect his dyspnea is related to the tachycardia and should improve when his heart rates come down. I will obtain a follow up chest xray in the morning. (5) Stage 3 chronic kidney disease Status: Chronic Assessment & Plan: We will need to watch his renal function closely. His creatinine has hovered around 1.5 and given his age over 79, he is on the renal adjusted dose of apixaban. (6) Primary hypertension Assessment & Plan: His blood pressure seems to have stabilized. I will continue to hold his carvedilol. (7) Mixed hyperlipidemia Assessment & Plan: I ordered his home dose of atorvastatin which should be continued. Problem Qualifiers (1) Stage 3 chronic kidney disease: Chronic kidney disease stage 3 subtype: stage 3a (GFR 45-59) Qualified Codes: N18.31 - Chronic kidney disease, stage 3a JUSTO LOPEZ JR, MD Jun 30, 2021 17:25
[2021-06-30] MEDS: TAMSULOSIN 0.4 MG (FLOMAX) CAP PO SCH (18:58)
[2021-07-01] MEDS: RT-ALBUTEROL SULF 2.5 MG/3 ML PRE-MIX VIAL INH PRN (00:13)
[2021-07-01 05:08] LABS: BASOPHILS % (AUTO) 0 % (0-10); EOSINOPHILS # (AUTO) 0.2 10^3/uL (0.0-0.3); EOSINOPHILS % (AUTO) 2 % (0-10); HEMATOCRIT 39 % (40-54); HEMOGLOBIN 13.3 g/dL (13.3-17.7); LYMPHOCYTES # (AUTO) 3.3 10^3/uL (1.0-4.0); LYMPHOCYTES % (AUTO) 31 % (12-44); MEAN CORPUSCULAR HEMOGLOBIN 34 pg (25-34); MEAN CORPUSCULAR HGB CONC 34 g/dL (32-36); MEAN CORPUSCULAR VOLUME 100 fL (80-99); MEAN PLATELET VOLUME 10.8 fL (9.0-12.2); MONOCYTES % (AUTO) 10 % (0-12); NEUTROPHILS # (AUTO) 5.8 10^3/uL (1.8-7.8); NEUTROPHILS % (AUTO) 56 % (42-75); PLATELET COUNT 119 10^3/uL (130-400); WHITE BLOOD COUNT 10.4 10^3/uL (4.3-11.0)
[2021-07-01 05:22] LABS: POTASSIUM 4.1 MMOL/L (3.6-5.0)
[2021-07-01 05:23] LABS: CALCIUM 9.1 MG/DL (8.5-10.1)
[2021-07-01 05:27] LABS: CREATININE SERUM 1.48 MG/DL (0.60-1.30)
[2021-07-01 05:29] LABS: MAGNESIUM 1.6 MG/DL (1.6-2.4)
[2021-07-01] MEDS: KCL 20 MEQ TAB (K-DUR) PO SCH (05:59)
[2021-07-01] MEDS: MAGNESIUM 1 GM/100 ML IVPB 100 ML IV SCH (05:59)
[2021-07-01] MEDS: POTASSIUM CL 10MEQ/50ML IVPB 50 ML IV SCH (05:59)
[2021-07-01] MEDS: APIXABAN 5 MG (ELIQUIS) TABLET PO SCH (08:47)
[2021-07-01] MEDS: SOTALOL 80 MG (BETAPACE) TAB PO SCH (09:00)
[2021-07-01] MEDS ORDERED: STL80T PO (09:06)
--- NOTE | 2021-07-01 09:13 | Cardiology Progress Note ---
Progress Note-Cardiology Events since last exam Date Seen by Provider: Jul 01, 2021 Time Seen by Provider: 09:08 Events since last exam I am following him due to atrial fibrillation. He remains in sinus rhythm on sotalol. He will receive his third dose this morning. QTc has been acceptable. His breathing is much improved. He denies palpitations. He denies chest pain, syncope, or ankle edema. He would like to go home today if possible. Certain portions of this document may have been dictated utilizing voice recognition technology. Inherent to this technology, typographical and grammatical errors may exist. As much as I am diligent to identify and correct these mistakes, some errors may remain in the document. Vitals Last set of Vitals Signs Vital Signs 07/01/21 07/01/21 07/01/21 03:00 08:00 09:00 Temp 36.7 Pulse 71 Resp 17 B/P (MAP) 130/84 Pulse Ox 93 O2 Delivery Room Air Labs Labs Laboratory Tests 07/01/21 04:52 Exam Vital Signs Vital Signs Date Time Temp Pulse Resp B/P (MAP) Pulse Ox O2 Delivery O2 Flow Rate FiO2 07/01/21 09:00 71 07/01/21 09:00 93 Room Air 07/01/21 08:00 17 130/84 07/01/21 03:00 36.7 06/28/21 20:26 21 Physical Exam General: Alert. No acute distress. Eye: No xanthelasma. HENT: Normocephalic. Neck: Jugular venous pressure does not appear elevated. Respiratory: Lungs are clear to auscultation. Respirations are non-labored. Breath sounds are equal. Symmetrical chest wall expansion. Cardiovascular: Normal rate. Regular rhythm. 3/6 high-pitched systolic ejection murmur. No gallop. No edema. Gastrointestinal: Soft. Normal bowel sounds. Skin: Warm. Dry. Neurologic: Alert and oriented to person, place, time. Cranial nerves 3-11 grossly intact. Psychiatric: Cooperative. Appropriate mood & affect. Labs Laboratory Tests Test 07/01/21 04:52 Range/Units White Blood Count 10.4 4.3-11.0 10^3/uL Red Blood Count 3.96 L 4.30-5.52 10^6/uL Hemoglobin 13.3 13.3-17.7 g/dL Hematocrit 39 L 40-54 % Mean Corpuscular Volume 100 H 80-99 fL Mean Corpuscular Hemoglobin 34 25-34 pg Mean Corpuscular Hemoglobin Concent 34 32-36 g/dL Red Cell Distribution Width 13.7 10.0-14.5 % Platelet Count 119 L 130-400 10^3/uL Mean Platelet Volume 10.8 9.0-12.2 fL Immature Granulocyte % (Auto) 0 % Neutrophils (%) (Auto) 56 42-75 % Lymphocytes (%) (Auto) 31 12-44 % Monocytes (%) (Auto) 10 0-12 % Eosinophils (%) (Auto) 2 0-10 % Basophils (%) (Auto) 0 0-10 % Neutrophils # (Auto) 5.8 1.8-7.8 10^3/uL Lymphocytes # (Auto) 3.3 1.0-4.0 10^3/uL Monocytes # (Auto) 1.0 0.0-1.0 10^3/uL Eosinophils # (Auto) 0.2 0.0-0.3 10^3/uL Basophils # (Auto) 0.0 0.0-0.1 10^3/uL Immature Granulocyte # (Auto) 0.0 0.0-0.1 10^3/uL Sodium Level 138 135-145 MMOL/L Potassium Level 4.1 3.6-5.0 MMOL/L Chloride Level 106 98-107 MMOL/L Carbon Dioxide Level 19 L 21-32 MMOL/L Anion Gap 13 5-14 MMOL/L Blood Urea Nitrogen 25 H 7-18 MG/DL Creatinine 1.48 H 0.60-1.30 MG/DL Estimat Glomerular Filtration Rate 46 BUN/Creatinine Ratio 17 Glucose Level 121 H 70-105 MG/DL Calcium Level 9.1 8.5-10.1 MG/DL Magnesium Level 1.6 1.6-2.4 MG/DL Diagnosis/Problems Diagnosis/Problems (1) Persistent atrial fibrillation Assessment & Plan: He has been remaining in sinus rhythm on sotalol. The dose has been renal adjusted due to his chronic kidney disease. QTc was under 450 ms this morning. We will continue apixaban for stroke prophylaxis. I recommend holding his carvedilol for the time being. I will decide whether or not to restart this as an outpatient. From a cardiac standpoint, he can be discharged to home today. (2) NSTEMI (non-ST elevated myocardial infarction) Status: Acute Assessment & Plan: He probably had a type II non-ST elevation myocardial infarction due to the tachycardia causing supply/demand mismatch. He underwent a cardiac catheterization in 2020 that did not show any significant coronary artery disease. He is not on aspirin due to being on apixaban for the atrial fibrillation. He is on sotalol as his beta-aydin and he is also on atorvastatin. (3) Aortic stenosis Assessment & Plan: He has moderate aortic stenosis which I have been following as an outpatient. (4) Chronic diastolic heart failure Assessment & Plan: His chest x-ray from admission was clear. I suspect his dyspnea was related to the tachycardia and has improved now that he is back in sinus. Chest x-ray from this morning is pending. He can be discharged with his previous dose of furosemide. (5) Stage 3 chronic kidney disease Status: Chronic Assessment & Plan: We will need to watch his renal function closely. His cre atinine has hovered around 1.5 and given his age over 79, he is on the renal adjusted dose of apixaban and sotalol. (6) Primary hypertension Assessment & Plan: His blood pressure seems to have stabilized. I will continue to hold his carvedilol. (7) Mixed hyperlipidemia Assessment & Plan: Continue atorvastatin. Problem Qualifiers (1) Stage 3 chronic kidney disease: Chronic kidney disease stage 3 subtype: stage 3a (GFR 45-59) Qualified Codes: N18.31 - Chronic kidney disease, stage 3a JUSTO LOPEZ JR, MD Jul 01, 2021 09:13
[2021-07-01 11:12] VITALS: BP 130/84
--- NOTE | 2021-07-01 11:12 | Diagnostic Imaging Report ---
Indication: Shortness of breath. Time of Exam: 9:09 AM Correlation is made with prior chest from 05/16/2021. Heart size is stable. Lungs are hyperinflated consistent with COPD. There has been some improved aeration to the lung since prior study from 05/16/2021. There may be some some mild residual infiltrate however. No pneumothorax is seen. IMPRESSION: Mild improved aeration of both lungs when compared with exam from 05/16/2021. Dictated by: Dictated on workstation # [id number]
[2021-07-01] MEDS ORDERED: RT-ALBUTEROL SULF 2.5 MG/3 ML PRE-MIX VIAL INH PRN (13:00)
--- NOTE | 2021-07-01 18:45 | Discharge Summary ---
Discharge Summary Hospital Course Problems/Dx: (1) Atrial fibrillation with rapid ventricular response Status: Acute (2) Encounter for monitoring sotalol therapy Status: Acute (3) Persistent atrial fibrillation Status: Acute (4) NSTEMI (non-ST elevated myocardial infarction) Status: Acute (5) Aortic stenosis Status: Chronic (6) Chronic diastolic heart failure Status: Chronic (7) Stage 3 chronic kidney disease Status: Chronic Qualifiers: Qualified Codes: N18.31 - Chronic kidney disease, stage 3a (8) Primary hypertension (9) Mixed hyperlipidemia Hospital Course Date of Admission: Jun 29, 2021 at 15:04 Admission Diagnosis : AFib with RVR Family Physician/Provider: Villa Ramirez DO Date of Discharge: 07/01/21 Discharge Diagnosis: AFib with RVR Hospital Course: Maurisio Edmondson is an 85 year old male with PMH HTN, AFib, CKD, who was admitted with AFib with RVR. Cardiology was consulted and assisted with his care. He was started on Sotalol and monitored in the ICU. He was continued on Eliquis. He converted and remained in normal sinus rhythm. He was discharged home in stable condition. He should follow up with his primary care physician and cardiology as scheduled. Labs and Pending Lab Test: Laboratory Tests 07/01/21 04:52: White Blood Count 10.4, Red Blood Count 3.96L, Hemoglobin 13.3, Hematocrit 39L, Mean Corpuscular Volume 100H, Mean Corpuscular Hemoglobin 34, Mean Corpuscular Hemoglobin Concent 34, Red Cell Distribution Width 13.7, Platelet Count 119L, Mean Platelet Volume 10.8, Immature Granulocyte % (Auto) 0, Neutrophils (%) (Auto) 56, Lymphocytes (%) (Auto) 31, Monocytes (%) (Auto) 10, Eosinophils (%) (Auto) 2, Basophils (%) (Auto) 0, Neutrophils # (Auto) 5.8, Lymphocytes # (Auto) 3.3, Monocytes # (Auto) 1.0, Eosinophils # (Auto) 0.2, Basophils # (Auto) 0.0, Immature Granulocyte # (Auto) 0.0, Sodium Level 138, Potassium Level 4.1, Chloride Level 106, Carbon Dioxide Level 19L, Anion Gap 13, Blood Urea Nitrogen 25H, Creatinine 1.48H, Estimat Glomerular Filtration Rate 46, BUN/Creatinine Ratio 17, Glucose Level 121H, Calcium Level 9.1, Magnesium Level 1.6 Home Meds Active Sotalol (Sotalol HCl) 80 Mg Tablet 80 Mg PO DAILY Reported Vitamin B Complex 1 Each Tablet 1 Each PO DAILY Refresh Tears (Carboxymethylcellulose Sodium) 15 Ml Drops 1 Drop OD BID Preservision Areds 2 Softgel (Vit C/E/Zn/Coppr/Lutein/Zeaxan) 1 Each Capsule 1 Each PO BID Magnesium Oxide 250 Mg Tablet 250 Mg PO DAILY Fluticasone-Salmeterol 100-50 (Fluticasone Propion/Salmeterol) 1 Each Blst.w.dev 1 Puff INH BID Flomax (Tamsulosin HCl) 0.4 Mg Cap 0.4 Mg PO DAILY Vitamin D3 (Cholecalciferol (Vitamin D3)) 25 Mcg Capsule 25 Mcg PO HS [place]-3 2100 Softgel ([place]-3/Dha/Epa/Dpa/Fish Oil) 1 Each Capsule 1 Each PO HS Atorvastatin Calcium 40 Mg Tablet 40 Mg PO DAILY Allopurinol 300 Mg Tablet 300 Mg PO DAILY Omeprazole 40 Mg Capsule.dr 40 Mg PO DAILY Eliquis (Apixaban) 2.5 Mg Tablet 2.5 Mg PO BID Zinc (Zinc Amino Acid Chelate) 50 Mg Tablet 50 Mg PO DAILY Flonase Allergy Relief (Fluticasone Propionate) 9.9 Ml Perry.susp 1 Perry NS HS PRN Prednisone 5 Mg Tablet 5 Mg PO DAILY Furosemide 20 Mg Tablet 40 Mg PO DAILY TAKES 2 (20MG) TABS [Jessy's Leg Cramps] 1 Tab SL HS PRN Assessment/Pt Instructions See instructions Discharge Planning: <30 minutes discharge planning Discharge Instructions Discharge Diet: Low Sodium Diet Activity as Tolerated: Yes Consultations Cardiology Discharge Physical Examination Vital Signs Vital Signs Date Time Temp Pulse Resp B/P (MAP) Pulse Ox O2 Delivery O2 Flow Rate FiO2 07/01/21 11:12 36.7 70 93 21 07/01/21 09:00 Room Air 07/01/21 08:00 17 130/84 General Appearance: No Apparent Distress, WD/WN Respiratory: Lungs Clear, No Respiratory Distress Cardiovascular: Regular Rate, Rhythm, No Murmur Gastrointestinal: Normal Bowel Sounds, Soft Extremity: Normal Inspection, No Pedal Edema Skin: Normal Color, Warm/Dry Neurologic/Psychiatric: Alert, Normal Mood/Affect Allergies: Coded Allergies: vancomycin (Verified Allergy, Severe, 05/28/19) Pt states his face got really red and he went into ER for reaction. gemfibrozil (Verified Allergy, Unknown, 05/27/19) valdecoxib (Verified Allergy, Unknown, 05/27/19) Discharge Summary Date of Admission Jun 29, 2021 at 15:04 Date of Discharge Jul 01, 2021 at 12:09 Discharge Date: Jul 01, 2021 Discharge Time: 12:09 Admission Diagnosis AFib with RVR Consults/Procedures Consulations Cardiology Discharge Diagnosis AFib with RVR (1) Persistent atrial fibrillation Status: Acute (2) NSTEMI (non-ST elevated myocardial infarction) Status: Acute (3) Aortic stenosis Status: Chronic (4) Chronic diastolic heart failure Status: Chronic (5) Stage 3 chronic kidney disease Status: Chronic Qualifiers: Qualified Codes: N18.31 - Chronic kidney disease, stage 3a (6) Primary hypertension (7) Mixed hyperlipidemia (8) Encounter for monitoring sotalol therapy Status: Acute Clinical Quality Measures AMI/AHF: ASA po Prior to arrival: LALITHA Yanes MD Jul 01, 2021 18:44
[2021-07-01] MEDS ORDERED: RT-ALBUTEROL SULF 2.5 MG/3 ML PRE-MIX VIAL INH SCH (21:00)
== END 2021-07-01 12:09 | disposition home or self-care (01) | DRG 281 ==
LOC: EDUNIT# 15:33 → ER 15:35 → ICU 17:13 → OBSVTOIN 06-29 15:04
PROVIDERS: ADMIT Internal Medicine; ATTEND Internal Medicine
DX: I48.19 Other persistent atrial fibrillation (principal); I21.4 Non-ST elevation (NSTEMI) myocardial infarction; I50.32 Chronic diastolic (congestive) heart failure; I13.0 Hypertensive heart and chronic kidney disease with heart failure and stage 1 through stage 4 chronic kidney disease, or unspecified chronic kidney disease; C85.90 Non-Hodgkin lymphoma, unspecified, unspecified site; I35.0 Nonrheumatic aortic (valve) stenosis; N18.31 Chronic kidney disease, stage 3a; E78.2 Mixed hyperlipidemia; Z79.01 Long term (current) use of anticoagulants; K21.9 Gastro-esophageal reflux disease without esophagitis; M19.90 Unspecified osteoarthritis, unspecified site; M10.9 Gout, unspecified; J44.9 Chronic obstructive pulmonary disease, unspecified; N40.0 Benign prostatic hyperplasia without lower urinary tract symptoms; Z92.3 Personal history of irradiation
CPT/HCPCS: 36415; 71045; 71046; 80048; 80053; 80076; 83735; 83874; 83880; 84443; 84484; 85025; 85610; 85730; 93005; 93041; 94640; G0378

== ENCOUNTER 2021-07-02 15:39 | Observation (INO) | payer MEDICARE, OTHER ==
[~2021-07-02] VITALS: Ht 167 cm; Wt 77.2 kg
[~2021-07-02 15:39] MED LIST changes: +MULT-1076 PO; +STL80T PO
[2021-07-02 16:06] LABS: BASOPHILS % (AUTO) 0 % (0-10); EOSINOPHILS % (AUTO) 0 % (0-10); HEMATOCRIT 43 % (40-54); HEMOGLOBIN 14.3 g/dL (13.3-17.7); LYMPHOCYTES # (AUTO) 3.2 10^3/uL (1.0-4.0); LYMPHOCYTES % (AUTO) 27 % (12-44); MEAN CORPUSCULAR HEMOGLOBIN 34 pg (25-34); MEAN CORPUSCULAR HGB CONC 34 g/dL (32-36); MEAN CORPUSCULAR VOLUME 101 fL (80-99); MEAN PLATELET VOLUME 11.1 fL (9.0-12.2); MONOCYTES # (AUTO) 0.8 10^3/uL (0.0-1.0); MONOCYTES % (AUTO) 7 % (0-12); NEUTROPHILS # (AUTO) 7.9 10^3/uL (1.8-7.8); NEUTROPHILS % (AUTO) 65 % (42-75); PLATELET COUNT 149 10^3/uL (130-400); WHITE BLOOD COUNT 12.1 10^3/uL (4.3-11.0)
[2021-07-02 16:09] LABS: POTASSIUM 4.7 MMOL/L (3.6-5.0)
[2021-07-02 16:10] LABS: CALCIUM 9.4 MG/DL (8.5-10.1)
[2021-07-02 16:14] LABS: CREATININE SERUM 2.43 MG/DL (0.60-1.30)
[2021-07-02 16:17] LABS: MAGNESIUM 1.7 MG/DL (1.6-2.4)
[2021-07-02 16:38] LABS: TSH (THYROID ANALYZER) 2.61 UIU/ML (0.35-4.94)
[2021-07-02] MEDS ORDERED: NS IV 500 ML 500 ML IV ONE (16:45)
[2021-07-02] MEDS ORDERED: dilTIAZem DRIP PRE-MIX 125 ML IV SCH (16:45)
--- NOTE | 2021-07-02 19:31 | ED Cardiac General ---
History of Present Illness General Chief Complaint: Cardiac/General Problems Stated Complaint: IRR HEART RATE/SOA Nursing Triage Note: ARRIVED VIA AMB TO ROOM 02 WITH COMPLAINTS OF HIS HEART BEING OUT OF RHYTHM AND SOA. Source: patient, old records Exam Limitations: no limitations History of Present Illness Date Seen by Provider: Jul 02, 2021 Time Seen by Provider: 15:57 Initial Comments This 85-year-old gentleman with history of paroxysmal atrial fibrillation presents to the emergency room with complaints of tachycardia, shortness of air, and palpitations since early this morning. He has history of atrial fibrillation and was recently admitted for A. fib RVR. He was started on sotalol. Dr. Solorzano is his primary malted milk mixer. Dr. Ojeda is his primary care provider. Patient denies any fever or cough. He is noted to have a significant tachycardia, likely atrial fibrillation, on the monitor. Allergies and Home Medications Allergies Coded Allergies: vancomycin (Verified Allergy, Severe, 05/28/19) Pt states his face got really red and he went into ER for reaction. gemfibrozil (Verified Allergy, Unknown, 05/27/19) valdecoxib (Verified Allergy, Unknown, 05/27/19) Patient Home Medication List Home Medication List Reviewed: Yes Allopurinol (Allopurinol) 300 Mg Tablet, 300 MG PO DAILY, (Reported) Entered as Reported by: LISA GEE on 11/22/18 132 Apixaban (Eliquis) 2.5 Mg Tablet, 2.5 MG PO BID, (Reported) Entered as Reported by: LISA GEE on 11/22/18 1321 Atorvastatin Calcium (Atorvastatin Calcium) 40 Mg Tablet, 40 MG PO DAILY, (Reported) Entered as Reported by: LISA GEE on 11/22/18 1321 Carboxymethylcellulose Sodium (Refresh Tears) 15 Ml Drops, 1 DROP OD BID, (Reported) Entered as Reported by: CATHERINE WALKER on 03/14/21 1117 Cholecalciferol (Vitamin D3) (Vitamin D3) 25 Mcg Capsule, 25 MCG PO HS, (Reported) Entered as Reported by: CATHERINE WALKER on 05/18/20 1107 Fluticasone Propion/Salmeterol (Fluticasone-Salmeterol 100-50) 1 Each Blst.w.dev, 1 PUFF INH BID, (Reported) Entered as Reported by: CATHERINE WALKER on 05/18/20 1107 Fluticasone Propionate (Flonase Allergy Relief) 9.9 Ml [place].susp, 1 SPRAY NS HS PRN for CONGESTION, (Reported) Entered as Reported by: LISA GEE on 11/22/18 1321 Furosemide (Furosemide) 20 Mg Tablet, 40 MG PO DAILY, (Reported) Entered as Reported by: LISA GEE on 11/22/18 1321 Magnesium Oxide (Magnesium Oxide) 250 Mg Tablet, 250 MG PO DAILY, (Reported) Entered as Reported by: CATHERINE WALKER on 05/18/20 1110 Multivitamin/Iron/Folic Acid (Multivitamin with Iron Tablet) 1 Each Tablet, 1 EACH PO DAILY, (Reported) Entered as Reported by: CATHERINE WALKER on 06/29/21 1034 [place]-3/Dha/Epa/Dpa/Fish Oil ([place]-3 2100 Softgel) 1 Each Capsule, 1 EACH PO HS, (Reported) Entered as Reported by: CATHERINE WALKER on 05/18/20 1107 Omeprazole (Omeprazole) 40 Mg Capsule.dr, 40 MG PO DAILY, (Reported) Entered as Reported by: LISA GEE on 11/22/18 1321 Prednisone (Prednisone) 5 Mg Tablet, 5 MG PO DAILY, (Reported) Entered as Reported by: LISA GEE on 11/22/18 1321 Sotalol HCl (Sotalol) 80 Mg Tablet, 80 MG PO DAILY Prescribed by: JUSTO SOLORZANO JR, MD on 07/01/21 0906 Tamsulosin HCl (Flomax) 0.4 Mg Cap, 0.4 MG PO DAILY, (Reported) Entered as Reported by: CATHERINE WALKER on 05/18/20 1107 Vit C/E/Zn/Coppr/Lutein/Zeaxan (Preservision Areds 2 Softgel) 1 Each Capsule, 1 EACH PO BID, (Reported) Entered as Reported by: CATHERINE WALKER on 03/14/21 1117 Vitamin B Complex (Vitamin B Complex) 1 Each Tablet, 1 EACH PO DAILY, (Reported) Entered as Reported by: CATHERINE WALKER on 05/19/21 1051 Zinc Amino Acid Chelate (Zinc) 50 Mg Tablet, 50 MG PO DAILY, (Reported) Entered as Reported by: LISA GEE on 11/22/18 1321 [Jessy's Leg Cramps] , 1 TAB SL HS PRN for CRAMPS, (Reported) Entered as Reported by: LISA GEE on 11/22/18 132 Discontinued Medications Carvedilol (Carvedilol) 6.25 Mg Tablet, 6.25 MG PO BID, (Reported) Entered as Reported by: LISA GEE on 11/22/18 132 Diphenhydramine HCl (Allergy Relief) 25 Mg Capsule, 25 MG PO HS PRN for ALLERGIES, (Reported) Entered as Reported by: LISA GEE on 11/22/18 132 Methotrexate Sodium (Methotrexate) 2.5 Mg Tablet, 10 MG PO THURS, (Reported) Discontinued Reason: No Longer Taking Entered as Reported by: LISA GEE on 11/25/18 0830 Pedi Mv No.79/Ferrous Fumarate (Flintstones with Iron Tab Chew) 18 Mg Tab.chew, 18 MG PO HS, (Reported) Discontinued Reason: Prescription changed Entered as Reported by: LISA GEE on 11/22/181320 Review of Systems Review of Systems Constitutional: weakness EENTM: No Symptoms Reported Respiratory: See HPI Cardiovascular: See HPI Gastrointestinal: No Symptoms Reported Genitourinary: No Symptoms Reported Musculoskeletal: no symptoms reported Skin: no symptoms reported Psychiatric/Neurological: No Symptoms Reported Endocrine: No Symptoms Reported Hematologic/Lymphatic: No Symptoms Reported Past Nwyapbj-Hjycro-Cjdtku Hx Patient Social History Tobacco Use?: No Smoking Status: Former Smoker Substance use?: No Alcohol Use?: No Immunizations Up To Date Tetanus Booster (TDap): Unknown First/Initial COVID19 Vaccinat: MAY 2020 Second COVID19 Vaccination Adalid: JUNE 2020 Third COVID19 Vaccination Date: UNKNOWN DATE COVID19 Vaccine Shrinker: MODERNA Seasonal Allergies Seasonal Allergies: Yes Past Medical History Surgery/Hospitalization HX: RIGHT HIP SURGERYCARDIOVERSIONS Surgeries: Yes Orthopedic, Prostatectomy Respiratory: Yes Sleep Apnea, COPD Currently Using CPAP: Yes Currently Using BIPAP: No Cardiac: Yes Atrial Fibrillation Neurological: No Genitourinary: Yes Renal Failure Gastrointestinal: Yes Gastroesophageal Reflux Musculoskeletal: Yes (RIGHT HIP SURGERY) Arthritis, Gout Endocrine: No HEENT: Yes Cataract Loss of Vision: Denies Hearing Impairment: Denies, Bilateral Hearing Aide Cancer: Yes Prostate, Lymphoma Did You Recieve Any Treatments: Yes What Type of Treatment Did You: Radiation Psychosocial: No Integumentary: Yes (DERMATITIS ON FACE) Blood Disorders: Yes Adverse Reaction/Blood Tranf: Yes (THINKS HE HAS HAD A RXN, BUT UNSURE WHAT) Family Medical History Cardiovascular disease 19 MOTHER Diabetes mellitus 19 MOTHER FH: prostate cancer G8 BROTHER Myocardial infarction 19 FATHER No Pertinent Family Hx Physical Exam Vital Signs Vital Signs - First Documented 07/02/21 07/02/21 15:39 17:35 Temp 36.6 Pulse 116 Resp 16 B/P (MAP) 75/ Pulse Ox 94 O2 Delivery Room Air O2 Flow Rate 2.00 Capillary Refill : Less Than 3 Seconds Height, Weight, BMI Height: 5'6.00" Weight: 173lbs. 6.4oz. 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 Ack. Understanding Breath Sounds per Auscultation: Wheezes Heart Sounds per Auscultation: Irregular Airway Exam: Mouth opens >2 fingers Progress/Results/Core Measures Results/Orders Lab Results Laboratory Tests Test 07/02/21 15:51 Range/Units White Blood Count 12.1 H 4.3-11.0 10^3/uL Red Blood Count 4.23 L 4.30-5.52 10^6/uL Hemoglobin 14.3 13.3-17.7 g/dL Hematocrit 43 40-54 % Mean Corpuscular Volume 101 H 80-99 fL Mean Corpuscular Hemoglobin 34 25-34 pg Mean Corpuscular Hemoglobin Concent 34 32-36 g/dL Red Cell Distribution Width 13.8 10.0-14.5 % Platelet Count 149 130-400 10^3/uL Mean Platelet Volume 11.1 9.0-12.2 fL Immature Granulocyte % (Auto) 1 % Neutrophils (%) (Auto) 65 42-75 % Lymphocytes (%) (Auto) 27 12-44 % Monocytes (%) (Auto) 7 0-12 % Eosinophils (%) (Auto) 0 0-10 % Basophils (%) (Auto) 0 0-10 % Neutrophils # (Auto) 7.9 H 1.8-7.8 10^3/uL Lymphocytes # (Auto) 3.2 1.0-4.0 10^3/uL Monocytes # (Auto) 0.8 0.0-1.0 10^3/uL Eosinophils # (Auto) 0.0 0.0-0.3 10^3/uL Basophils # (Auto) 0.0 0.0-0.1 10^3/uL Immature Granulocyte # (Auto) 0.1 0.0-0.1 10^3/uL Sodium Level 136 135-145 MMOL/L Potassium Level 4.7 3.6-5.0 MMOL/L Chloride Level 105 98-107 MMOL/L Carbon Dioxide Level 13 L 21-32 MMOL/L Anion Gap 18 H 5-14 MMOL/L Blood Urea Nitrogen 28 H 7-18 MG/DL Creatinine 2.43 H 0.60-1.30 MG/DL Estimat Glomerular Filtration Rate 25 BUN/Creatinine Ratio 12 Glucose Level 181 H 70-105 MG/DL Calcium Level 9.4 8.5-10.1 MG/DL Magnesium Level 1.7 1.6-2.4 MG/DL TSH [place] Testing 2.61 0.35-4.94 UIU/ML My Orders Orders - TONY ODEN MD Ed Iv/Invasive Line Start (07/02/21 15:57) Ekg Tracing (07/02/21 15:57) Monitor-Rhythm Ecg Trace Only (07/02/21 15:57) Basic Metabolic Panel (07/02/21 15:57) Cbc With Automated Diff (07/02/21 15:57) Magnesium (07/02/21 15:57) Thyroid Analyzer (07/02/21 15:57) Ns Iv 500 Ml (Sodium Chloride 0.9%) (07/02/21 16:45) Diltiazem Drip Pre-Mix (Cardizem Drip Pr (07/02/21 16:45) Ekg Tracing (07/02/21 18:01) Ekg Tracing (07/02/21 18:01) Medications Given in ED Current Medications Medications Dose Ordered Sig/Yonny Route Start Time Stop Time Status Last Admin Dose Admin Sodium Chloride 500 ml @ 0 mls/hr Q0M ONCE IV 07/02/21 16:45 07/02/21 16:46 DC 07/02/21 17:04 500 MLS/HR Vital Signs/I&O 07/02/21 07/02/21 15:39 17:35 Temp 36.6 Pulse 116 Resp 16 B/P (MAP) 75/ Pulse Ox 94 90 O2 Delivery Room Air Nasal Cannula O2 Flow Rate 2.00 Progress Progress Note : Progress Note Patient was in atrial fibrillation with RVR upon arrival. He was also intermittently hypotensive with systolic blood pressures as low as the 70s. He was started on a slow Cardizem drip at 5 mg/h. He was given a 500 mL normal saline bolus. This resulted in rate control and normalization of his blood pressure. And eventually he converted to sinus rhythm. I discussed the situation with Dr. Solorzano. Given his new acute kidney injury on top of chronic kidney disease, he would like the patient admitted for observation overnight to ensure his renal function improves and that he can tolerate sotalol. I discussed CODE STATUS with patient and he wishes to be full code. EKG #1: EKG Time: 15:50 Rate: 145 Comment Sinus rhythm, likely A. fib with RVR. No ischemic ST elevation EKG #2: EKG Time: 16:33 Rate: 125 Rhythm: A Fib/Flutter Comment Atrial flutter with 2-1 AV conduction RVR. No ischemic ST elevation or depression. EKG #3: EKG Time: 18:02 Rate: 68 Rhythm: Normal Sinus Comment Sinus rhythm with no ST elevation or depression. No abnormal intervals or axis deviation. Conversion from atrial fibrillation/flutter with RVR on Cardizem. Departure Communication (Admissions) Time/Spoke to Admitting Phy: 19:00 Dr. Yeboah Time/Spoke to Consulting Phy: 18:31 Dr. Solorzano Impression Primary Impression: Atrial fibrillation with RVR Additional Impression: Acute kidney injury Disposition: ADMITTED INPATIENT Condition: Improved Admissions Decision to Admit Reason: Admit from ER (General) Decision to Admit/Date: Jul 02, 2021 Time/Decision to Admit Time: 18:31 Departure-Patient Inst. Referrals: LEE FERNANDEZ DO (PCP/Family) Primary Care Physician Copy Copies To 1: NAPOLEON OJEDA MD, JOSHUA T MD Jul 02, 2021 19:31
[2021-07-02] MEDS ORDERED: NS IV 1000 ML 1,000 ML ONE (20:19)
[2021-07-02] MEDS: NS IV 1000 ML 1,000 ML IV SCH (20:30)
[2021-07-02] MEDS ORDERED: ANTACID SUSP 30 ML UDC (MYLANTA) PO PRN (20:45)
[2021-07-02] MEDS ORDERED: ONDANSETRON 4 MG/2 ML (SDV) Z0FRAN IV PRN (20:45)
[2021-07-02] MEDS ORDERED: polyethylene glycoL POWDER 17 GM (MIRALAX) PACK PO PRN (20:45)
[2021-07-02] MEDS ORDERED: MELATONIN 3 MG TABLET PO PRN (20:45)
[2021-07-02] MEDS ORDERED: diphenhydrAMINE 25 MG TAB (BENADRYL) PO PRN (20:45)
[2021-07-02] MEDS ORDERED: ACETAMINOPHEN 325 MG TABLET PO PRN (20:45)
[2021-07-02] MEDS ORDERED: ONDANSETRON 4 MG (ZOFRAN) ORAL DISSOLVE TAB PO PRN (20:45)
[2021-07-02] MEDS ORDERED: PATIENT MAY USE OWN MEDS, ALL PO SCH (20:45)
--- NOTE | 2021-07-02 20:45 | Tele-ICU Progress Note ---
Progress Note 85M with HTN, afib, CKD, afib with RVR, just discharged yesterday from ICU for sotalol initiation. He returned today with palpitations, found to be in afib with RVR. Initiated to cardizem, currently at 5 mg. HR NSR at 67, BP 101/66. On eliquis. Defer to cardiology for ongoing management. Focused Exam Height, Weight, BMI Height: 5'6.00" Weight: 173lbs. 6.4oz. 78.127997hy; 27.00 BMI Method: DILLAN TORRE MD Jul 02, 2021 20:45
[2021-07-02] MEDS: RT-ALBUTEROL SULF 2.5 MG/3 ML PRE-MIX VIAL INH SCH (21:25)
[2021-07-02] MEDS ORDERED: SOTALOL 80 MG (BETAPACE) TAB PO SCH (21:30)
[2021-07-02] MEDS: dilTIAZem DRIP PRE-MIX 125 ML IV SCH (21:40)
[2021-07-02] MEDS: APIXABAN 2.5 MG (ELIQUIS) TABLET PO SCH (21:47)
[2021-07-03] MEDS ORDERED: BUMETANIDE 1 MG/4 ML (BUMEX) VIAL ONE (03:25)
[2021-07-03] MEDS ORDERED: BUMETANIDE 1 MG/4 ML (BUMEX) VIAL IV ONE (03:30)
[2021-07-03] MEDS ORDERED: RT-ALBUTEROL/IPRATROPIUM 3 ML (DUONEB) VIAL ONE (03:32)
[2021-07-03] MEDS: RT-ALBUTEROL/IPRATROPIUM 3 ML (DUONEB) VIAL INH PRN ×2 (03:36→17:24)
[2021-07-03 03:49] VITALS: BP 107/66
[2021-07-03 04:59] LABS: BASOPHILS % (AUTO) 0 % (0-10); EOSINOPHILS # (AUTO) 0.2 10^3/uL (0.0-0.3); EOSINOPHILS % (AUTO) 2 % (0-10); HEMATOCRIT 40 % (40-54); HEMOGLOBIN 13.1 g/dL (13.3-17.7); LYMPHOCYTES # (AUTO) 3.4 10^3/uL (1.0-4.0); LYMPHOCYTES % (AUTO) 34 % (12-44); MEAN CORPUSCULAR HEMOGLOBIN 33 pg (25-34); MEAN CORPUSCULAR HGB CONC 33 g/dL (32-36); MEAN CORPUSCULAR VOLUME 101 fL (80-99); MEAN PLATELET VOLUME 10.9 fL (9.0-12.2); MONOCYTES % (AUTO) 10 % (0-12); NEUTROPHILS # (AUTO) 5.5 10^3/uL (1.8-7.8); NEUTROPHILS % (AUTO) 54 % (42-75); PLATELET COUNT 140 10^3/uL (130-400); WHITE BLOOD COUNT 10.2 10^3/uL (4.3-11.0)
[2021-07-03 05:05] VITALS: BP 143/79
[2021-07-03 05:15] LABS: ALBUMIN 3.5 GM/DL (3.2-4.5)
[2021-07-03 05:16] LABS: POTASSIUM 3.8 MMOL/L (3.6-5.0)
[2021-07-03 05:17] LABS: CALCIUM 8.9 MG/DL (8.5-10.1)
[2021-07-03 05:18] LABS: TOTAL PROTEIN 6.3 GM/DL (6.4-8.2)
[2021-07-03 05:20] LABS: BILIRUBIN,TOTAL 0.7 MG/DL (0.1-1.0)
[2021-07-03 05:21] LABS: PHOSPHORUS 3.7 MG/DL (2.3-4.7)
[2021-07-03 05:22] LABS: CREATININE SERUM 1.91 MG/DL (0.60-1.30)
[2021-07-03 05:25] LABS: MAGNESIUM 1.6 MG/DL (1.6-2.4)
[2021-07-03] MEDS: NS IV 1000 ML 1,000 ML IV SCH (05:30)
--- NOTE | 2021-07-03 06:48 | Diagnostic Imaging Report ---
EXAMINATION: Chest radiograph, portable AP view. DATE: 07/03/2021 5:31 AM INDICATION: 85-year-old male, dyspnea. COMPARISON: June 28, 2021. FINDINGS: Heart size and mediastinal contours are unchanged. There is no identified pneumothorax. There is no large pleural effusion. There are multifocal bilateral interstitial and alveolar opacities. This is an interval change since the comparison exam. 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 IMPRESSION: 1. Multifocal bilateral interstitial and/or alveolar opacities which are an interval change and may relate to pneumonia, aspiration, edema, or other alveolar consolidative process. Dictated by: Dictated on workstation # [id number]
[2021-07-03] MEDS: RT-ALBUTEROL SULF 2.5 MG/3 ML PRE-MIX VIAL INH SCH (08:21)
[2021-07-03] MEDS: SOTALOL 80 MG (BETAPACE) TAB PO SCH (08:30)
[2021-07-03] MEDS: APIXABAN 2.5 MG (ELIQUIS) TABLET PO SCH ×2 (08:30→22:06)
--- NOTE | 2021-07-03 09:32 | Tele-ICU Progress Note ---
Subjective Date Seen by a Provider: Jul 03, 2021 Time Seen by a Provider: 09:28 Subjective/Events-last exam This patient was recently admitted for atrial fibrillation with RVR. He was started on sotalol and discharged home. He is readmitted with palpitation and found to have atrial fibrillation with RVR. Currently started on Cardizem drip with which his heart rate is controlled. Per RN patient is wheezing. I have o rdered nebulizer treatment and steroid. Video visit made and he is sitting comfortably in the chair and his heart rate is controlled. Review of Systems ROS PER RN Sepsis Event Evaluation Height, Weight, BMI Height: 5'6.00" Weight: 173lbs. 6.4oz. 78.263991nn; 27.60 BMI Method: Exam Exam Patient acknowledged, consented, and participated in this virtual visit which was conducted using real time audio/video Vital Signs Date Time Temp Pulse Resp B/P (MAP) Pulse Ox O2 Delivery O2 Flow Rate FiO2 07/03/21 09:00 64 18 117/72 95 Nasal Cannula 2.00 07/03/21 08:00 69 24 141/86 96 Nasal Cannula 2.00 07/03/21 07:47 36.2 07/03/21 07:00 60 07/03/21 07:00 60 22 133/74 94 Nasal Cannula 2.00 07/03/21 06:15 Nasal Cannula 2.00 07/03/21 06:00 54 23 125/72 95 NIV Bilevel 40.00 07/03/21 05:05 NIV Bilevel 40.00 07/03/21 05:05 62 18 98 40.00 07/03/21 05:00 72 25 129/73 95 Nasal Cannula 2.00 07/03/21 04:00 96 Nasal Cannula 2.00 07/03/21 04:00 67 20 133/77 95 Nasal Cannula 2.00 07/03/21 03:49 36.6 116 94 21 07/03/21 03:36 96 Nasal Cannula 2.00 95 07/03/21 03:00 72 25 118/63 94 Nasal Cannula 2.00 07/03/21 02:00 65 18 119/67 97 Nasal Cannula 2.00 07/03/21 01:00 60 07/03/21 01:00 61 17 116/63 96 Nasal Cannula 2.00 07/03/21 00:00 64 19 115/58 98 Nasal Cannula 2.00 07/02/21 23:59 98 Nasal Cannula 2.00 07/02/21 23:00 60 19 108/63 98 Nasal Cannula 2.00 07/02/21 22:00 61 19 106/71 96 Nasal Cannula 2.00 07/02/21 21:30 64 18 103/64 96 Nasal Cannula 2.00 07/02/21 21:25 96 Nasal Cannula 1.00 07/02/21 21:00 62 17 104/65 96 Nasal Cannula 2.00 07/02/21 20:45 66 19 96/65 96 Nasal Cannula 2.00 07/02/21 20:30 65 20 101/66 96 Nasal Cannula 2.00 07/02/21 20:25 63 07/02/21 20:20 36.4 64 18 111/67 98 Nasal Cannula 2.00 07/02/21 20:20 Nasal Cannula 2.00 07/02/21 20:00 36.2 66 16 107/66 95 Room Air 07/02/21 17:35 90 Nasal Cannula 2.00 07/02/21 15:39 36.6 116 16 75/ 94 Room Air I & O 07/03/21 07:00 Intake Total 2100 ml Output Total 700 ml Balance 1400 ml Height & Weight Height: 5'6.00" Weight: 173lbs. 6.4oz. 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 Atrial fibrillation with RVR recurrent 2. Wheezing possibly due to COPD exacerbation. Recommendations 1. A. fib with RVR treatment per cardiology 2. We will start on a DuoNeb nebulizer treatment and IV Solu-Medrol for a day. 3. Incentive spirometry. 4. DVT prophylaxis. Reviewed with ASSURANCE ENGINEER. Critical Care: Critically Ill Patient Time spent with patient (mins): 20 STEVAN ARIZMENDI MD Jul 03, 2021 09:32
[2021-07-03] MEDS: methylPREDNISolone 40 MG/ML (Solu-MEDROL) VIAL IV SCH ×5 (09:38→23:23)
--- NOTE | 2021-07-03 09:40 | Consultation-Cardiology ---
HPI-Cardiology Cardiology Consultation: Date of Consultation 07/03/21 Date of Admission 07/02/21 Attending Physician Amina Yeboah MD Admitting Physician Villa Ramirez DO Consulting Physician JUSTO LOPEZ JR, MD HPI: Time Seen by a Provider: 09:35 Chief Complaint: Reason for consultation: Atrial fibrillation. I had the pleasure of seeing Maurisio in the intensive care unit at [facility] in [place], [place] this morning. He is known to me from the office. He has a history of chronic heart failure with preserved ejection fraction as well as paroxysmal atrial fibrillation among other issues. He was actually discharged home on 415 but last evening developed recurrent palpitations with the sensation of rapid heartbeats and then he had dyspnea on exertion and was brought back to the emergency room. He was found to be in recurrent atrial fibrillation. He was given intravenous diltiazem and a short while later, converted back to sinus rhythm. Upon further questioning by the emergency room provider, the patient believes he may have forgotten to take his sotalol yesterday morning. Today his breathing is improved. He was sitting up in a chair in his room with family at the bedside. Sometimes with dyspnea, his chest will feel tight. This morning he denies chest discomfort. He denies paroxysmal nocturnal dyspnea, orthopnea, lightheadedness, syncope, or ankle edema. Last evening the emergency room physician thought the patient may not have taken his sotalol yesterday but when I spoke to his at the bedside this morning, she assures me that he took his sotalol in the morning. Certain portions of this document may have been dictated utilizing voice recognition technology. Inherent to this technology, typographical and grammatical errors may exist. As much as I am diligent to identify and correct these mistakes, some errors may remain in the document. Review of Systems-Cardiology Review of Systems Other comments Review of 10 organ systems is as per the history of present illness, otherwise negative. LMK-[id number]-Ahsmcx Hx Patient Social History Marrital Status: Smoking Status: Former Smoker 2nd Hand Smoke Exposure: No Have you traveled recently?: No Alcohol Use?: No Immunizations Up To Date Tetanus Booster (TDap): Unknown Date of Pneumonia Vaccine: Nov 17, 2010 Date of Influenza Vaccine: Dec 17, 2020 Past Medical History PMH As described under Assessment. Family Medical History Family History: Cardiovascular disease 19 MOTHER Diabetes mellitus 19 MOTHER FH: prostate cancer G8 BROTHER Myocardial infarction 19 FATHER Allergies and Home Medications Allergies Coded Allergies: vancomycin (Verified Allergy, Severe, 05/28/19) Pt states his face got really red and he went into ER for reaction. gemfibrozil (Verified Allergy, Unknown, 05/27/19) valdecoxib (Verified Allergy, Unknown, 05/27/19) Patient Home Medication List Home Medication List Reviewed: Yes Allopurinol (Allopurinol) 300 Mg Tablet, 300 MG PO DAILY, (Reported) Entered as Reported by: LISA GEE on 11/22/18 132 Apixaban (Eliquis) 2.5 Mg Tablet, 2.5 MG PO BID, (Reported) Entered as Reported by: LISA GEE on 11/22/18 132 Atorvastatin Calcium (Atorvastatin Calcium) 40 Mg Tablet, 40 MG PO DAILY, (Reported) Entered as Reported by: LISA GEE on 11/22/18 132 Carboxymethylcellulose Sodium (Refresh Tears) 15 Ml Drops, 1 DROP OD BID, (Reported) Entered as Reported by: CATHERINE WALKER on 03/14/21 1117 Cholecalciferol (Vitamin D3) (Vitamin D3) 25 Mcg Capsule, 25 MCG PO HS, (Reported) Entered as Reported by: CATHERINE WALKER on 05/18/20 1107 Fluticasone Propion/Salmeterol (Fluticasone-Salmeterol 100-50) 1 Each Blst.w.dev, 1 PUFF INH BID, (Reported) Entered as Reported by: CATHERINE WALKER on 05/18/20 1107 Fluticasone Propionate (Flonase Allergy Relief) 9.9 Ml [place].susp, 1 SPRAY NS HS PRN for CONGESTION, (Reported) Entered as Reported by: LISA GEE on 11/22/18 1321 Furosemide (Furosemide) 20 Mg Tablet, 40 MG PO DAILY, (Reported) Entered as Reported by: LISA GEE on 11/22/18 1321 Magnesium Oxide (Magnesium Oxide) 250 Mg Tablet, 250 MG PO DAILY, (Reported) Entered as Reported by: CATHERINE WALKER on 05/18/20 1110 Multivitamin/Iron/Folic Acid (Multivitamin with Iron Tablet) 1 Each Tablet, 1 EACH PO DAILY, (Reported) Entered as Reported by: CATHERINE WALKER on 06/29/21 1034 Carlos-3/Dha/Epa/Dpa/Fish Oil (Carlos-3 2100 Softgel) 1 Each Capsule, 1 EACH PO HS, (Reported) Entered as Reported by: CATHERINE WALKER on 05/18/20 1107 Omeprazole (Omeprazole) 40 Mg Capsule.dr, 40 MG PO DAILY, (Reported) Entered as Reported by: LISA GEE on 11/22/18 1321 Prednisone (Prednisone) 5 Mg Tablet, 5 MG PO DAILY, (Reported) Entered as Reported by: LSIA GEE on 11/22/18 132 Sotalol HCl (Sotalol) 80 Mg Tablet, 80 MG PO DAILY Prescribed by: JUSTO LOPEZ JR, MD on 07/01/21 0906 Tamsulosin HCl (Flomax) 0.4 Mg Cap, 0.4 MG PO DAILY, (Reported) Entered as Reported by: CATHERINE WALKER on 05/18/20 1107 Vit C/E/Zn/Coppr/Lutein/Zeaxan (Preservision Areds 2 Softgel) 1 Each Capsule, 1 EACH PO BID, (Reported) Entered as Reported by: CATHERINE WALKER on 03/14/21 1117 Vitamin B Complex (Vitamin B Complex) 1 Each Tablet, 1 EACH PO DAILY, (Reported) Entered as Reported by: CATHERINE WALKER on 05/19/21 1051 Zinc Amino Acid Chelate (Zinc) 50 Mg Tablet, 50 MG PO DAILY, (Reported) Entered as Reported by: LISA GEE on 11/22/18 1321 [Jessy's Leg Cramps] , 1 TAB SL HS PRN for CRAMPS, (Reported) Entered as Reported by: LISA GEE on 11/22/18 132 Discontinued Medications Carvedilol (Carvedilol) 6.25 Mg Tablet, 6.25 MG PO BID, (Reported) Entered as Reported by: LISA GEE on 11/22/18 132 Diphenhydramine HCl (Allergy Relief) 25 Mg Capsule, 25 MG PO HS PRN for ALLERGIES, (Reported) Entered as Reported by: LISA GEE on 11/22/18 132 Methotrexate Sodium (Methotrexate) 2.5 Mg Tablet, 10 MG PO THURS, (Reported) Discontinued Reason: No Longer Taking Entered as Reported by: LISA GEE on 11/25/18 0830 Pedi Mv No.79/Ferrous Fumarate (Flintstones with Iron Tab Chew) 18 Mg Tab.chew, 18 MG PO HS, (Reported) Discontinued Reason: Prescription changed Entered as Reported by: LISA GEE on 11/22/18 1321 Exam Vital Signs Vital Signs Date Time Temp Pulse Resp B/P (MAP) Pulse Ox O2 Delivery O2 Flow Rate FiO2 07/03/21 09:00 64 18 117/72 95 Nasal Cannula 2.00 07/03/21 07:47 36.2 07/03/21 03:49 21 Physical Exam General: Alert. No acute distress. Well nourished and appears stated age. Eye: Extraocular movements are intact. Conjunctivae are clear. There are no xanthelasma. HENT: Normocephalic. Atraumatic. Carotid pulsations 2/2 without bruits. Neck: Jugular venous pressure does not appear elevated. No thyromegaly appreciated. Respiratory: Lungs are clear to auscultation. Respirations are non-labored. Breath sounds are equal. Symmetrical chest wall expansion. Cardiovascular: Normal rate. Regular rhythm. No murmur. No gallop. Point of maximal impulse is not appear displaced. Good pulses equal in all extremities. No edema. Gastrointestinal: Soft. Normal bowel sounds. Skin: Skin turgor is normal. There is no pallor. Musculoskeletal: No kyphosis or scoliosis appreciated. Neurologic: Alert and oriented to person, place, time. Cranial nerves 3-12 appear grossly intact. The patient has good motor tone strength in the upper and lower extremities bilaterally. Psychiatric: Cooperative. Appropriate mood & affect. Labs Laboratory Tests Test 07/02/21 15:51 07/03/21 04:20 Range/Units White Blood Count 12.1 H 10.2 4.3-11.0 10^3/uL Red Blood Count 4.23 L 3.94 L 4.30-5.52 10^6/uL Hemoglobin 14.3 13.1 L 13.3-17.7 g/dL Hematocrit 43 40 40-54 % Mean Corpuscular Volume 101 H 101 H 80-99 fL Mean Corpuscular Hemoglobin 34 33 25-34 pg Mean Corpuscular Hemoglobin Concent 34 33 32-36 g/dL Red Cell Distribution Width 13.8 13.7 10.0-14.5 % Platelet Count 149 140 130-400 10^3/uL Mean Platelet Volume 11.1 10.9 9.0-12.2 fL Immature Granulocyte % (Auto) 1 0 % Neutrophils (%) (Auto) 65 54 42-75 % Lymphocytes (%) (Auto) 27 34 12-44 % Monocytes (%) (Auto) 7 10 0-12 % Eosinophils (%) (Auto) 0 2 0-10 % Basophils (%) (Auto) 0 0 0-10 % Neutrophils # (Auto) 7.9 H 5.5 1.8-7.8 10^3/uL Lymphocytes # (Auto) 3.2 3.4 1.0-4.0 10^3/uL Monocytes # (Auto) 0.8 1.0 0.0-1.0 10^3/uL Eosinophils # (Auto) 0.0 0.2 0.0-0.3 10^3/uL Basophils # (Auto) 0.0 0.0 0.0-0.1 10^3/uL Immature Granulocyte # (Auto) 0.1 0.0 0.0-0.1 10^3/uL Sodium Level 136 137 135-145 MMOL/L Potassium Level 4.7 3.8 3.6-5.0 MMOL/L Chloride Level 105 106 98-107 MMOL/L Carbon Dioxide Level 13 L 17 L 21-32 MMOL/L Anion Gap 18 H 14 5-14 MMOL/L Blood Urea Nitrogen 28 H 29 H 7-18 MG/DL Creatinine 2.43 H 1.91 H 0.60-1.30 MG/DL Estimat Glomerular Filtration Rate 25 34 BUN/Creatinine Ratio 12 15 Glucose Level 181 H 132 H 70-105 MG/DL Calcium Level 9.4 8.9 8.5-10.1 MG/DL Magnesium Level 1.7 1.6 1.6-2.4 MG/DL TSH Jbphh Testing 2.61 0.35-4.94 UIU/ML Corrected Calcium 9.3 8.5-10.1 MG/DL Phosphorus Level 3.7 2.3-4.7 MG/DL Total Bilirubin 0.7 0.1-1.0 MG/DL Aspartate Amino Transf (AST/SGOT) 26 5-34 U/L Alanine Aminotransferase (ALT/SGPT) 20 0-55 U/L Alkaline Phosphatase 84 40-136 U/L Total Protein 6.3 L 6.4-8.2 GM/DL Albumin 3.5 3.2-4.5 GM/DL Radiology ELECTROCARDIOGRAM (07/02/2021): Atrial fibrillation with a rapid ventricular rate of 145 bpm with left anterior hemiblock and right bundle branch block with diffuse, nonspecific ST-T wave changes. ELECTROCARDIOGRAM (06/13/2021): Sinus rhythm with left anterior hemiblock and right bundle branch block with probable left ventricular hypertrophy. 2 VIEW CHEST X-RAY (05/16/2021): 1. Patchy bilateral infiltrates. ELECTROCARDIOGRAM (05/16/2021): Sinus rhythm with left anterior hemiblock, right bundle branch block and left ventricular hypertrophy with repolarization abnormality. ELECTROCARDIOGRAM (04/12/2021): Sinus rhythm with one isolated premature ventricular complex, left anterior hemiblock, right bundle branch block and probable left ventricular hypertrophy. LABS (04/06/2021): Sodium 138. Potassium 3.4. Glucose 120. Creatinine 1.54. GFR 43. LABS (03/29/2021): Sodium 140. Potassium 3.7. Creatinine 1.3. GFR 52. 2 VIEW CHEST X-RAY (03/29/2021): 1. Improving changes of congestive failure when compared to study from 03/13/20 21. ELECTROCARDIOGRAM (03/29/2021): Sinus rhythm with left ventricular hypertrophy and left anterior hemiblock. LABS (03/15/2021): Sodium 138. Potassium 3.6. Creatinine 1.25. GFR 55. Glucose 116. Hemoglobin 12.7. Platelets 147,000. CARDIAC CATHETERIZATION (03/14/2021): 1. Normal left heart pressures with approximately a 20 mmHg pressure gradient upon pullback across aortic valve which is consistent with the aortic stenosis the patient is known to have by echocardiogram. 2. Angiographically normal-appearing coronary arteries in a right dominant system. 3. The patient is known to have normal left ventricular systolic function with an estimated ejection fraction of 55-60% by echocardiogram performed earlier today. 5. In light of these findings, the patient may have had a type II non-ST elevation myocardial infarction related to supply/demand mismatch from the extreme tachycardia that occurred last evening when he was in atrial fibrillation. ECHOCARDIOGRAM (03/14/2021): 1. This is a technically difficult study due to poor image quality secondary to patient's body habitus. 2. Normal left ventricular chamber size, wall thickness and systolic function with an estimated ejection fraction of 55-60%. Regional wall motion abnormalities cannot be excluded due to poor endocardial definition. 3. The left ventricular diastolic parameters are consistent with grade 2 diastolic dysfunction. 4. The right ventricle is normal in size with mildly reduced function. TAPSE 1.4 cm. 5. The left atrium is moderately dilated with a volume index of 46 mL/m. 6. There is mild mitral annular calcification. 7. There is mild mitral regurgitation. 8. There is moderate aortic stenosis with a mean gradient of 30 mmHg, a peak gradient of 54 mmHg, a peak velocity of 3.7 m/s and a calculated aortic valve area of 0.9 cm. 9. The pulmonary artery pressure cannot be estimated on this study due to inadequate tricuspid regurgitant envelope. LABS (03/14/2021): Troponin 3.065. Triglycerides 218. Total cholesterol 110. HDL 30. Direct LDL 48. CHEST 1 VIEW PA ONLY (03/13/2021): 1. Findings most likely reflects extensive pulmonary edema with cardiomegaly and vascular congestion. ELECTROCARDIOGRAM (03/13/2021): Sinus rhythm with left anterior hemiblock, right bundle branch block and left ventricular hypertrophy with repolarization abnormality. ELECTROCARDIOGRAM (03/13/2021): Wide complex tachycardia, probably atrial fibrillation with a ventricular rate of 179 bpm with left anterior hemiblock and right bundle branch block. Diagnosis/Problems Diagnosis/Problems (1) Persistent atrial fibrillation Status: Acute Assessment & Plan: He has developed recurrent atrial fibrillation. It seems as though he has been taking the sotalol. He also has acute kidney injury on top of his chronic renal disease. I have resumed his sotalol. I encouraged him to drink plenty of fluids at home but to be careful about sodium intake or drinking more than 2 L of fluid per day. If he has another episode of atrial fibrillation and/or acute kidney injury, then we will probably need to discontinue the sotalol. At that point, would probably end up changing him over to amiodarone. He should continue on apixaban for stroke prophylaxis. He is on the renal adjusted dose due to creatinine above 1.5 and age over 80. (2) Acute on chronic heart failure with preserved ejection fraction (HFpEF) Assessment & Plan: I suspect he may also have some degree of decompensated heart failure related to the recurrent atrial fibrillation. I would be cautious with intravenous fluids. He received 1 L of normal saline in the emergency room. I will stop the IV fluids at this point in time. I am concerned about giving him diuretic as this could make his renal function worse again. Fortunately, his renal function appears to be improving this morning. (3) Aortic stenosis Status: Chronic Assessment & Plan: He has at least moderate aortic stenosis. My plan has been to continue to follow this longitudinally. (4) Non-ST elevation myocardial infarction (NSTEMI) Assessment & Plan: He has had another significant troponin leak but just had a cardiac catheterization in late 2020 that showed angiographically normal- appearing coronary arteries. I suspect he again had a type II non-ST elevation myocardial infarction due to the tachycardia. That was probably also some component of troponin elevation due to the acute kidney injury with suboptimal renal clearance of troponin. (5) Acute kidney injury superimposed on chronic kidney disease Assessment & Plan: Most likely multifactorial. As above, I encouraged him to try and drink at least 1.5 L of fluid daily. (6) Acute on chronic respiratory failure with hypoxemia Assessment & Plan: I suspect he has some underlying chronic lung disease on top of the acute heart failure. The eICU has ordered steroids. (7) Mixed hyperlipidemia Assessment & Plan: Continue statin. JUSTO LOPEZ JR, MD Jul 03, 2021 09:40
[2021-07-03] MEDS ORDERED: RT-ALBUTEROL/IPRATROPIUM 3 ML (DUONEB) VIAL INH SCH (12:00)
--- NOTE | 2021-07-03 13:00 | History & Physical-Hospitalist ---
History of Present Illness HPI/Chief Complaint Maurisio Edmondson is an 85 year old male with PMH HTN, HLD, COPD, GERD, BPH, AFib, CKD 3a, who presented with rapid heart rate. He was recently discharged after an admission due to AFib and he was started on Sotalol. He had been taking his medicine as prescribed. He reports feeling short of breath when his heart started racing. He had just gotten up out of bed to walk to the bathroom. He had not been doing any strenuous activity. He has been eating and drinking normally. Source: patient Exam Limitations: no limitations Date Seen 07/03/21 Time Seen by a Provider: 10:10 Attending Physician Lalitha Jack MD PCP Villa Ramirez DO Referring Physician Date of Admission Jul 02, 2021 at 19:37 Home Medications & Allergies Home Medications Reviewed patient Home Medication Reconciliation performed by pharmacy medication reconciliations log data technician and/or nursing. Patients Allergies have been reviewed. Allergies Allergies Coded Allergies vancomycin (Verified Allergy, Severe, 05/28/19) Pt states his face got really red and he went into ER for reaction. gemfibrozil (Verified Allergy, Unknown, 05/27/19) valdecoxib (Verified Allergy, Unknown, 05/27/19) Past Wibcqwl-Vkfinm-Enxwyb Hx Patient Social History Marrital Status: Tobacco Use?: No Smoking Status: Former Smoker Substance use?: No Alcohol Use?: No Immunizations Up To Date Date of Influenza Vaccine: Dec 17, 2020 First/Initial COVID19 Vaccinat: UNKNOWN DATE Second COVID19 Vaccination Adalid: UNKNOWN DATE Tetanus Booster (TDap): More Than 5 Years Hepatitis A: No Hepatitis B: No Date of Pneumonia Vaccine: Nov 17, 2010 Seasonal Allergies Seasonal Allergies: Yes Current Status Advance Directives: No Communicates: Verbally Primary Language: Burundian Preferred Spoken Language: Burundian Is interpretation needed?: No Past Medical History Surgeries: Orthopedic, Prostatectomy Sleep Apnea, COPD Currently Using CPAP: Yes Currently Using BIPAP: No Atrial Fibrillation Renal Failure Gastroesophageal Reflux Arthritis, Gout Cataract Loss of Vision: Denies Hearing Impairment: Denies, Bilateral Hearing Aide Prostate, Lymphoma Did You Recieve Any Treatments: Yes What Type of Treatment Did You: Radiation Blood Disorders: Yes Adverse Reaction/Blood Tranf: Yes (THINKS HE HAS HAD A RXN, BUT UNSURE WHAT) Family Medical History Cardiovascular disease 19 MOTHER Diabetes mellitus 19 MOTHER FH: prostate cancer G8 BROTHER Myocardial infarction 19 FATHER No Pertinent Family Hx Review of Systems Constitutional: no symptoms reported EENTM: no symptoms reported Respiratory: short of breath Cardiovascular: palpitations Gastrointestinal: no symptoms reported Genitourinary: no symptoms reported Musculoskeletal: no symptoms reported Skin: no symptoms reported Psychiatric/Neurological: No Symptoms Reported Physical Exam Physical Exam Vital Signs Vital Signs - First Documented 07/02/21 07/02/21 07/03/21 15:39 17:35 03:36 Temp 36.6 Pulse 116 Resp 16 B/P (MAP) 75/ Pulse Ox 94 O2 Delivery Room Air O2 Flow Rate 2.00 FiO2 95 Capillary Refill : Less Than 3 Seconds Height, Weight, BMI Height: 5'6.00" Weight: 173lbs. 6.4oz. [id number]; 27.60 BMI Method: General Appearance: No Apparent Distress, Chronically ill HEENT: PERRL/EOMI, Pharynx Normal Neck: Normal Inspection, Supple Respiratory: Lungs Clear, Normal Breath Sounds, No Respiratory Distress Cardiovascular: Regular Rate, Rhythm, Systolic Murmur Gastrointestinal: Normal Bowel Sounds, Non Tender, Soft Extremity: Normal Inspection, No Pedal Edema Neurologic/Psychiatric: Alert, Oriented x3, Normal Mood/Affect Skin: Normal Color, Warm/Dry Results Results/Procedures Labs Laboratory Tests 07/02/21 15:51 07/03/21 04:20 Patient resulted labs reviewed. Imaging: Reviewed Imaging Report Assessment/Plan Admission Diagnosis AFib with RVR Admission Status: Inpatient Order (span 2 midnights) Reason for Inpatient Admission: IV antiarrhythmics Assessment and Plan AFib with RVR Started on IV Cardizem Converted to normal sinus rhythm Continue Sotalol Continue Eliquis Cardiology consulted CHRISTOPHER on CKD 3a Received IV fluids Creatinine improved now Stop fluids HTN HLD GERD BPH Continue home meds Diagnosis/Problems Diagnosis/Problems (1) Atrial fibrillation with rapid ventricular response Status: Acute (2) Acute kidney injury superimposed on chronic kidney disease Status: Acute LALITHA JACK MD Jul 03, 2021 13:00
[2021-07-03] MEDS ORDERED: guaiFENesin/DM (ROBITUSSIN DM) 10 ML UDC PO PRN (17:30)
[2021-07-03] MEDS ORDERED: TAMSULOSIN 0.4 MG (FLOMAX) CAP PO SCH (18:00)
[2021-07-03 18:51] VITALS: BP 146/84
[2021-07-03 21:07] VITALS: BP 146/84
[2021-07-03] MEDS: RT-ALBUTEROL/IPRATROPIUM 3 ML (DUONEB) VIAL INH SCH (21:07)
[2021-07-03] MEDS: dilTIAZem DRIP PRE-MIX 125 ML IV SCH (22:06)
[2021-07-04 04:35] LABS: BASOPHILS % (AUTO) 0 % (0-10); EOSINOPHILS % (AUTO) 0 % (0-10); HEMATOCRIT 39 % (40-54); HEMOGLOBIN 13.4 g/dL (13.3-17.7); LYMPHOCYTES # (AUTO) 1.7 10^3/uL (1.0-4.0); LYMPHOCYTES % (AUTO) 15 % (12-44); MEAN CORPUSCULAR HEMOGLOBIN 33 pg (25-34); MEAN CORPUSCULAR HGB CONC 34 g/dL (32-36); MEAN CORPUSCULAR VOLUME 98 fL (80-99); MEAN PLATELET VOLUME 11.1 fL (9.0-12.2); MONOCYTES # (AUTO) 0.1 10^3/uL (0.0-1.0); MONOCYTES % (AUTO) 1 % (0-12); NEUTROPHILS # (AUTO) 9.2 10^3/uL (1.8-7.8); NEUTROPHILS % (AUTO) 83 % (42-75); PLATELET COUNT 137 10^3/uL (130-400); WHITE BLOOD COUNT 11.1 10^3/uL (4.3-11.0)
[2021-07-04 04:48] LABS: ALBUMIN 3.4 GM/DL (3.2-4.5)
[2021-07-04 04:49] LABS: CALCIUM 9.1 MG/DL (8.5-10.1)
[2021-07-04 04:51] LABS: TOTAL PROTEIN 6.1 GM/DL (6.4-8.2)
[2021-07-04 04:52] LABS: BILIRUBIN,TOTAL 0.7 MG/DL (0.1-1.0)
[2021-07-04 04:54] LABS: CREATININE SERUM 1.69 MG/DL (0.60-1.30); PHOSPHORUS 3.3 MG/DL (2.3-4.7)
[2021-07-04 04:57] LABS: MAGNESIUM 1.7 MG/DL (1.6-2.4)
[2021-07-04] MEDS: methylPREDNISolone 40 MG/ML (Solu-MEDROL) VIAL IV SCH (05:21)
[2021-07-04] MEDS: RT-ALBUTEROL/IPRATROPIUM 3 ML (DUONEB) VIAL INH SCH ×2 (07:03→14:41)
[2021-07-04] MEDS: APIXABAN 2.5 MG (ELIQUIS) TABLET PO SCH (08:00)
[2021-07-04] MEDS: SOTALOL 80 MG (BETAPACE) TAB PO SCH (08:00)
--- NOTE | 2021-07-04 08:54 | Cardiology Progress Note ---
Progress Note-Cardiology Events since last exam Date Seen by Provider: Jul 04, 2021 Time Seen by Provider: 08:53 Events since last exam I am following him due to atrial fibrillation and chronic heart failure with preserved ejection fraction. This morning he feels as though his breathing is back to normal. He would like to go home. He denies chest discomfort, palpitations, syncope, or ankle edema. Certain portions of this document may have been dictated utilizing voice recognition technology. Inherent to this technology, typographical and grammatical errors may exist. As much as I am diligent to identify and correct these mistakes, some errors may remain in the document. Vitals Last set of Vitals Signs Vital Signs 07/03/21 07/04/21 07/04/21 07/04/21 20:00 11:55 14:00 14:41 Temp 36.7 Pulse 72 Resp 16 Pulse Ox 93 O2 Delivery Room Air O2 Flow Rate 2.00 FiO2 30 Labs Labs Laboratory Tests 07/04/21 04:05 Exam Vital Signs Vital Signs Date Time Temp Pulse Resp B/P (MAP) Pulse Ox O2 Delivery O2 Flow Rate FiO2 07/04/21 14:41 93 Room Air 07/04/21 14:00 72 16 2.00 07/04/21 13:00 144/70 07/04/21 11:55 36.7 07/03/21 20:00 30 Physical Exam General: Alert. No acute distress. Eye: No xanthelasma. HENT: Normocephalic. Neck: Jugular venous pressure does not appear elevated. Respiratory: Lungs have scattered inspiratory wheezes. Respirations are non- labored. Breath sounds are equal. Symmetrical chest wall expansion. Cardiovascular: Normal rate. Regular rhythm. 3/6 high-pitched systolic ejection murmur. No gallop. No edema. Gastrointestinal: Soft. Normal bowel sounds. Skin: Warm. Dry. Neurologic: Alert and oriented to person, place, time. Cranial nerves 3-11 grossly intact. Psychiatric: Cooperative. Appropriate mood & affect. Labs Laboratory Tests Test 07/04/21 04:05 Range/Units White Blood Count 11.1 H 4.3-11.0 10^3/uL Red Blood Count 4.03 L 4.30-5.52 10^6/uL Hemoglobin 13.4 13.3-17.7 g/dL Hematocrit 39 L 40-54 % Mean Corpuscular Volume 98 80-99 fL Mean Corpuscular Hemoglobin 33 25-34 pg Mean Corpuscular Hemoglobin Concent 34 32-36 g/dL Red Cell Distribution Width 13.4 10.0-14.5 % Platelet Count 137 130-400 10^3/uL Mean Platelet Volume 11.1 9.0-12.2 fL Immature Granulocyte % (Auto) 0 % Neutrophils (%) (Auto) 83 H 42-75 % Lymphocytes (%) (Auto) 15 12-44 % Monocytes (%) (Auto) 1 0-12 % Eosinophils (%) (Auto) 0 0-10 % Basophils (%) (Auto) 0 0-10 % Neutrophils # (Auto) 9.2 H 1.8-7.8 10^3/uL Lymphocytes # (Auto) 1.7 1.0-4.0 10^3/uL Monocytes # (Auto) 0.1 0.0-1.0 10^3/uL Eosinophils # (Auto) 0.0 0.0-0.3 10^3/uL Basophils # (Auto) 0.0 0.0-0.1 10^3/uL Immature Granulocyte # (Auto) 0.0 0.0-0.1 10^3/uL Sodium Level 136 135-145 MMOL/L Potassium Level 4.0 3.6-5.0 MMOL/L Chloride Level 105 98-107 MMOL/L Carbon Dioxide Level 15 L 21-32 MMOL/L Anion Gap 16 H 5-14 MMOL/L Blood Urea Nitrogen 29 H 7-18 MG/DL Creatinine 1.69 H 0.60-1.30 MG/DL Estimat Glomerular Filtration Rate 39 BUN/Creatinine Ratio 17 Glucose Level 193 H 70-105 MG/DL Calcium Level 9.1 8.5-10.1 MG/DL Corrected Calcium 9.6 8.5-10.1 MG/DL Phosphorus Level 3.3 2.3-4.7 MG/DL Magnesium Level 1.7 1.6-2.4 MG/DL Total Bilirubin 0.7 0.1-1.0 MG/DL Aspartate Amino Transf (AST/SGOT) 18 5-34 U/L Alanine Aminotransferase (ALT/SGPT) 18 0-55 U/L Alkaline Phosphatase 87 40-136 U/L Total Protein 6.1 L 6.4-8.2 GM/DL Albumin 3.4 3.2-4.5 GM/DL Diagnosis/Problems Diagnosis/Problems (1) Persistent atrial fibrillation Status: Acute Assessment & Plan: He has developed recurrent atrial fibrillation. It seems as though he has been taking the sotalol. He also has acute kidney injury on top of his chronic renal disease. I resumed his sotalol and he has now remained in sinus rhythm since admission. I encouraged him to drink plenty of fluids at home but to be careful about sodium intake or drinking more than 2 L of fluid per day. If he has another episode of atrial fibrillation and/or acute kidney injury, then we will probably need to discontinue the sotalol. At that point, I would probably change him over to amiodarone. He should continue on apixaban for stroke prophylaxis. He is on the renal adjusted dose due to creatinine above 1.5 and age over 79. From a cardiac standpoint, he can be discharged to home. (2) Acute on chronic heart failure with preserved ejection fraction (HFpEF) Assessment & Plan: I suspect he may also have some degree of decompensated heart failure related to the recurrent atrial fibrillation. I would be cautious with intravenous fluids. He received 1 L of normal saline in the emergency room. I stopped the IV fluids on 07/03. I am concerned about giving him diuretic as this could make his renal function worse again. Fortunately, his renal function improved again during this hospitalization. (3) Aortic stenosis Status: Chronic Assessment & Plan: He has at least moderate aortic stenosis. My plan has been to continue to follow this longitudinally. (4) Non-ST elevation myocardial infarction (NSTEMI) Assessment & Plan: He has had another significant troponin leak but just had a cardiac catheterization in late 2020 that showed angiographically normal- appearing coronary arteries. I suspect he again had a type II non-ST elevation myocardial infarction due to the tachycardia with supply/demand mismatch. There was probably also some component of troponin elevation due to the acute kidney injury with suboptimal renal clearance of troponin. (5) Acute kidney injury superimposed on chronic kidney disease Status: Acute Assessment & Plan: Most likely multifactorial. As above, I encouraged him to try and drink at least 1.5 L of fluid daily. (6) Acute on chronic respiratory failure with hypoxemia Assessment & Plan: I suspect he has some underlying chronic lung disease on top of the acute heart failure. The eICU has ordered steroids. (7) Mixed hyperlipidemia Assessment & Plan: Continue statin. JUSTO LOPEZ JR, MD Jul 04, 2021 08:54
[2021-07-04] MEDS ORDERED: SOTA80TA23 PO (09:06)
--- NOTE | 2021-07-04 10:08 | Physical Therapy Evaluation ---
PT Evaluation-General Medical Diagnosis Admission Date Jul 02, 2021 at 19:37 Medical Diagnosis: A-fib with RVR Onset Date: Jul 02, 2021 Therapy Diagnosis Therapy Diagnosis: debility/weakness Height/Weight Height (Feet): 5 Height (Inches): 6.00 Weight (Pounds): 173 Weight (Ounces): 6.4 Precautions Precautions/Isolations: Fall Prevention, Standard Precautions Weight Bear Status Right Lower Extremity: Right Weight Bearing/Tolerated Left Lower Extremity: Left Weight Bearing/Tolerated Referral Physician: Edilia Reason for Referral: Evaluation/Treatment Medical History Pertinent Medical History: Atrial Fib, Arthritis, COPD, GERD, HTN Current History Admitted for A-fib Reviewed History: Yes Social History Home: Single Level Current Living Status: Spouse Prior Prior Level of Function SCALE: Activities may be completed with or without assistive devices. 9-Ymyvkddhtf-moathbd completes the activity by him/herself with no assistance from a helper. 5-Set-up or Clean-up Assistance-helper sets up or cleans up; patient completes activity. [place] assists only prior to or following the activity. 4-Supervision or Touching Assistance-helper provides verbal cues and/or touching/steadying and/or contact guard assistance as patient completes activity. Assistance may be provided throughout the activity or intermittently. 3-Partial/Moderate Assistance-helper does LESS THAN HALF the effort. [place] lifts, holds or supports trunk or limbs, but provides less than half the effort. 2-Substantial/Maximal Assistance-helper does MORE THAN HALF the effort. [place] lifts or holds trunk or limbs and provides more than half the effort. 4-Xpivwxzev-kbfqzg does ALL the effort. Patient does none of the effort to complete the activity. Or, the assistance of 2 or more helpers is required for the patient to complete the activity. If activity was not attempted, code reason: 7-Patient Refused. 9-Not Applicable-not attempted and the patient did not perform the activity before the current illness, exacerbation or injury. 10-Not Attempted due to Environmental Limitations-(lack of equipment, weather restraints, etc.). 88-Not Attempted due to Medical Conditions or Safety Concerns. Bed Mobility: 6 Transfers (B,C,W/C): 6 Gait: 6 Stairs: 6 Indoor Mobility (Ambulation): Independent Stairs: Independent Prior Devices Use: Walker (PRN) PT Evaluation-Current Subjective Patient agrees to PT. Objective Patient Orientation: Normal For Age ROM/Strength ROM Lower Extremities bilateral LE WFL Strength Lower Extremities 4/5 grossly bilateral LE Integumentary/Posture Bowel Incontinence: No Bladder Incontinence: No Posture WFL Neuromuscular (Tone, Coordination, Reflexes) grossly intact Sensory Vision: Functional Hearing: Impaired Transfers Lying to Sitting/Side of Bed(Q: 6 Sit to Stand (QC): 6 Chair/Rfy-ni-Qqssl Xfer(QC): 6 Gait Does the Patient Walk?: Yes Mode of Locomotion: Walk Anticipated Mode of Locomotion: Walk Walk 10 feet (QC): 6 Distance: 10' Comments/Gait Description safe and functional Balance Sitting Static: Normal Sitting Dynamic: Normal Standing Static: Normal Standing Dynamic: Normal Assessment/Needs Patient currently at [facility] with all gross motor skills. Per RN, he has been ambulating in room with nursing present. No skilled PT indicated. Rehab Potential: Fair PT Plan Treatment/Plan Treatment Plan: Discontinue PT, goals met Treatment Duration: Jul 04, 2021 Frequency: 1 time per week Estimated Hrs Per Day: .25 hour per day Patient and/or Family Agrees t: Yes Time/GCodes Time In: 755 Time Out: 806 Total Billed Treatment Time: 11 Total Billed Treatment 1 visit EVLow 11 min DEJAH MEDINA PT Jul 04, 2021 10:08
[2021-07-04] MEDS ORDERED: CPAP MASK (11:14)
--- NOTE | 2021-07-04 11:20 | Discharge Summary ---
Diagnosis/Chief Complaint Date of Admission Jul 02, 2021 at 19:37 Date of Discharge Discharge Date: Jul 04, 2021 Admission Diagnosis AFib with RVR Primary Care Villa Ramirez DO Discharge Diagnosis (1) Persistent atrial fibrillation Status: Acute Assessment & Plan: He has developed recurrent atrial fibrillation. It seems as though he has been taking the sotalol. He also has acute kidney injury on top of his chronic renal disease. I have resumed his sotalol. I encouraged him to drink plenty of fluids at home but to be careful about sodium intake or drinking more than 2 L of fluid per day. If he has another episode of atrial fibrillation and/or acute kidney injury, then we will probably need to discontinue the sotalol. At that point, would probably end up changing him over to amiodarone. He should continue on apixaban for stroke prophylaxis. He is on the renal adjusted dose due to creatinine above 1.5 and age over 80. (2) Acute on chronic heart failure with preserved ejection fraction (HFpEF) Assessment & Plan: I suspect he may also have some degree of decompensated heart failure related to the recurrent atrial fibrillation. I would be cautious with intravenous fluids. He received 1 L of normal saline in the emergency room. I stopped the IV fluids on 07/03. I am concerned about giving him diuretic as this could make his renal function worse again. Fortunately, his renal function appears to be improving this morning. (3) Aortic stenosis Status: Chronic Assessment & Plan: He has at least moderate aortic stenosis. My plan has been to continue to follow this longitudinally. (4) Non-ST elevation myocardial infarction (NSTEMI) Assessment & Plan: He has had another significant troponin leak but just had a cardiac catheterization in late 2020 that showed angiographically normal- appearing coronary arteries. I suspect he again had a type II non-ST elevation myocardial infarction due to the tachycardia. That was probably also some component of troponin elevation due to the acute kidney injury with suboptimal renal clearance of troponin. (5) Acute kidney injury superimposed on chronic kidney disease Status: Acute Assessment & Plan: Most likely multifactorial. As above, I encouraged him to try and drink at least 1.5 L of fluid daily. (6) Acute on chronic respiratory failure with hypoxemia Assessment & Plan: I suspect he has some underlying chronic lung disease on top of the acute heart failure. The eICU has ordered steroids. (7) Mixed hyperlipidemia Assessment & Plan: Continue statin. Discharge Summary Discharge Physical Exam Allergies: Coded Allergies: vancomycin (Verified Allergy, Severe, 05/28/19) Pt states his face got really red and he went into ER for reaction. gemfibrozil (Verified Allergy, Unknown, 05/27/19) valdecoxib (Verified Allergy, Unknown, 05/27/19) Vitals & I&Os Vital Signs Date Time Temp Pulse Resp B/P (MAP) Pulse Ox O2 Delivery O2 Flow Rate FiO2 07/04/21 10:00 70 127/71 94 Nasal Cannula 2.00 07/04/21 09:00 19 07/04/21 07:48 36.4 07/03/21 20:00 30 Hospital Course Labs (last 24 hrs) Laboratory Tests 07/04/21 04:05: White Blood Count 11.1H, Red Blood Count 4.03L, Hemoglobin 13.4, Hematocrit 39L, Mean Corpuscular Volume 98, Mean Corpuscular Hemoglobin 33, Mean Corpuscular Hemoglobin Concent 34, Red Cell Distribution Width 13.4, Platelet Count 137, Mean Platelet Volume 11.1, Immature Granulocyte % (Auto) 0, Neutrophils (%) (Auto) 83H, Lymphocytes (%) (Auto) 15, Monocytes (%) (Auto) 1, Eosinophils (%) (Auto) 0, Basophils (%) (Auto) 0, Neutrophils # (Auto) 9.2H, Lymphocytes # (Auto) 1.7, Monocytes # (Auto) 0.1, Eosinophils # (Auto) 0.0, Basophils # (Auto) 0.0, Immature Granulocyte # (Auto) 0.0, Sodium Level 136, Potassium Level 4.0, Chloride Level 105, Carbon Dioxide Level 15L, Anion Gap 16H, Blood Urea Nitrogen 29H, Creatinine 1.69H, Estimat Glomerular Filtration Rate 39, BUN/Creatinine Ratio 17, Glucose Level 193H, Calcium Level 9.1, Corrected Calcium 9.6, Phosphorus Level 3.3, Magnesium Level 1.7, Total Bilirubin 0.7, Aspartate Amino Transf (AST/SGOT) 18, Alanine Aminotransferase (ALT/SGPT) 18, Alkaline Phosphatase 87, Total Protein 6.1L, Albumin 3.4 Patient resulted labs reviewed. Pending Labs Laboratory Tests 07/04/21 04:05: White Blood Count 11.1, Red Blood Count 4.03, Hemoglobin 13.4, Hematocrit 39, Mean Corpuscular Volume 98, Mean Corpuscular Hemoglobin 33, Mean Corpuscular Hemoglobin Concent 34, Red Cell Distribution Width 13.4, Platelet Count 137, Mean Platelet Volume 11.1, Immature Granulocyte % (Auto) 0, Neutrophils (%) (Auto) 83, Lymphocytes (%) (Auto) 15, Monocytes (%) (Auto) 1, Eosinophils (%) (Auto) 0, Basophils (%) (Auto) 0, Neutrophils # (Auto) 9.2, Lymphocytes # (Auto) 1.7, Monocytes # (Auto) 0.1, Eosinophils # (Auto) 0.0, Basophils # (Auto) 0.0, Immature Granulocyte # (Auto) 0.0, Sodium Level 136, Potassium Level 4.0, Chloride Level 105, Carbon Dioxide Level 15, Anion Gap 16, Blood Urea Nitrogen 29, Creatinine 1.69, Estimat Glomerular Filtration Rate 39, BUN/Creatinine Ratio 17, Glucose Level 193, Calcium Level 9.1, Corrected Calcium 9.6, Phosphorus L evel 3.3, Magnesium Level 1.7, Total Bilirubin 0.7, Aspartate Amino Transf (AST/SGOT) 18, Alanine Aminotransferase (ALT/SGPT) 18, Alkaline Phosphatase 87, Total Protein 6.1, Albumin 3.4 Imaging: Reviewed Imaging Report Discharge Home Medications: Active Scripts Active [CPAP Mask] Reported Betapace AF (Sotalol HCl) 80 Mg Tablet 80 Mg PO DAILY Multivitamin with Iron Tablet (Multivitamin/Iron/Folic Acid) 1 Each Tablet 1 Each PO DAILY Vitamin B Complex 1 Each Tablet 1 Each PO DAILY Refresh Tears (Carboxymethylcellulose Sodium) 15 Ml Drops 1 Drop OP BID Preservision Areds 2 Softgel (Vit C/E/Zn/Coppr/Lutein/Zeaxan) 1 Each Capsule 1 Each PO BID Magnesium Oxide 250 Mg Tablet 250 Mg PO DAILY Fluticasone-Salmeterol 100-50 (Fluticasone Propion/Salmeterol) 1 Each Blst.w.dev 1 Puff INH BID Flomax (Tamsulosin HCl) 0.4 Mg Cap 0.4 Mg PO DAILY Vitamin D3 (Cholecalciferol (Vitamin D3)) 25 Mcg Capsule 25 Mcg PO HS [place]-3 2100 Softgel ([place]-3/Dha/Epa/Dpa/Fish Oil) 1 Each Capsule 1 Each PO HS Atorvastatin Calcium 40 Mg Tablet 40 Mg PO DAILY Allopurinol 300 Mg Tablet 300 Mg PO DAILY Omeprazole 40 Mg Capsule.dr 40 Mg PO DAILY Eliquis (Apixaban) 2.5 Mg Tablet 2.5 Mg PO BID Zinc (Zinc Amino Acid Chelate) 50 Mg Tablet 50 Mg PO DAILY Flonase Allergy Relief (Fluticasone Propionate) 9.9 Ml [place].susp 1 [place] NS HS PRN Prednisone 5 Mg Tablet 5 Mg PO DAILY Furosemide 20 Mg Tablet 40 Mg PO DAILY TAKES 2 (20MG) TABS [Jessy's Leg Cramps] 1 Tab SL HS PRN Instructions to patient/family Please see electronic discharge instructions given to patient. ELLE MARCUS MD Jul 04, 2021 11:20
--- NOTE | 2021-07-04 11:20 | Discharge Inst-Simple/Standard ---
Discharge Inst-Standard Patient Instructions/Follow Up Plan of Care/Instructions/FU: Continue take your medications as written. Please follow-up with Dr. Solorzano and your primary care doctor, Dr. Ramirez, to follow-up this hospital stay. Activity as Tolerated: Yes Discharge Diet: Cardiac Diet Return to The Hospital For: Chest pain, shortness of breath, weakness, heart racing, if you feel you are getting worse. ELLE MARCUS MD Jul 04, 2021 11:20
== END 2021-07-04 14:58 | disposition home or self-care (01) ==
LOC: EDUNIT# 15:39 → ER 15:41 → ICU 19:37
PROVIDERS: ADMIT Internal Medicine; ATTEND Internal Medicine
DX: I48.19 Other persistent atrial fibrillation (principal); I13.0 Hypertensive heart and chronic kidney disease with heart failure and stage 1 through stage 4 chronic kidney disease, or unspecified chronic kidney disease; N18.31 Chronic kidney disease, stage 3a; N17.9 Acute kidney failure, unspecified; I50.33 Acute on chronic diastolic (congestive) heart failure; J96.21 Acute and chronic respiratory failure with hypoxia; E78.2 Mixed hyperlipidemia; R00.0 Tachycardia, unspecified; I21.A1 Myocardial infarction type 2; I35.0 Nonrheumatic aortic (valve) stenosis; K21.9 Gastro-esophageal reflux disease without esophagitis; N40.0 Benign prostatic hyperplasia without lower urinary tract symptoms; I48.0 Paroxysmal atrial fibrillation; Z79.01 Long term (current) use of anticoagulants; Z79.52 Long term (current) use of systemic steroids; Z87.891 Personal history of nicotine dependence; Z79.899 Other long term (current) drug therapy; Z85.46 Personal history of malignant neoplasm of prostate
CPT/HCPCS: 71045; 80048; 80053 ×2; 83735 ×3; 84100 ×2; 84443; 85025 ×3; 93005 ×2; 93041; 94640 ×4; 94660; 94664; 94761; 96374; 96375; 96376; 97161; 99284; G0378; 36415

== ENCOUNTER → 2021-08-22 | Outpatient (CLI) | payer MEDICARE, OTHER ==
[~2021-08-22] MED LIST changes: +CPAP MASK; +RT-ALBUTEROL SULF 2.5 MG/3 ML PRE-MIX VIAL INH ONE; +SOTA80TA23 PO
== END ==
LOC: RT 14:00
PROVIDERS: ATTEND Internal Medicine Critical Care Medicine
DX: R05.3 Chronic cough (principal); R06.02 Shortness of breath; R91.8 Other nonspecific abnormal finding of lung field
CPT/HCPCS: 93005; 94060; 94726; 94729

== ENCOUNTER 2021-10-31 15:42 | Emergency (ER) | payer MEDICARE, OTHER ==
[~2021-10-31] VITALS: Ht 167 cm; Wt 74.8 kg
[~2021-10-31 15:42] MED LIST changes: +PRD20T PO; -RT-ALBUTEROL SULF 2.5 MG/3 ML PRE-MIX VIAL INH ONE; +SOTA80TA10 PO; +UMEC1BLS INH
--- NOTE | 2021-10-31 15:57 | ED Cardiac General ---
History of Present Illness General Chief Complaint: Cardiac/General Problems Stated Complaint: AFIB Source: patient Exam Limitations: no limitations History of Present Illness Date Seen by Provider: Oct 31, 2021 Time Seen by Provider: 15:55 Initial Comments To ER by private vehicle from home with reports of "heart out of rhythm". Complains of palpitations. Denies any chest pain or shortness of breath. States this is happened several times before and sometimes he is treated with medication and sometimes he is electrically cardioverted. He has had the electrical cardioversion done about [address] Solorzano this morning and was given a pill of some sort to try to control the rhythm he states but it did not help his symptoms yet. 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 gemfibrozil (Verified Allergy, Unknown, 05/27/19) valdecoxib (Verified Allergy, Unknown, 05/27/19) Patient Home Medication List Home Medication List Reviewed: Yes Allopurinol (Allopurinol) 300 Mg Tablet, 300 MG PO DAILY, (Reported) Entered as Reported by: LISA GEE on 11/22/18 1321 Apixaban (Eliquis) 2.5 Mg Tablet, 2.5 MG PO BID, (Reported) Entered as Reported by: LISA GEE on 11/22/18 1321 Atorvastatin Calcium (Atorvastatin Calcium) 40 Mg Tablet, 40 MG PO DAILY, (Reported) Entered as Reported by: LISA GEE on 11/22/18 1321 Carboxymethylcellulose Sodium (Refresh Tears) 15 Ml Drops, 1 DROP OP BID, (Reported) Entered as Reported by: CATHERINE WALKER on 03/14/21 1117 Cholecalciferol (Vitamin D3) (Vitamin D3) 25 Mcg (1000 Unit) Capsule, 25 MCG PO DAILY, (Reported) Entered as Reported by: CATHERINE WALKER on 05/18/20 1107 Fluticasone Propion/Salmeterol (Fluticasone-Salmeterol 100-50) 1 Each Blst.w.dev, 1 PUFF INH BID, (Reported) Entered as Reported by: CATHERINE WALKER on 05/18/20 1107 Fluticasone Propionate (Flonase Allergy Relief) 50 Mcg/Actuation [place].susp, 1 SPRAY NS DAILY PRN for CONGESTION, (Reported) Entered as Reported by: LISA GEE on 11/22/18 1321 Furosemide (Furosemide) 20 Mg Tablet, 40 MG PO DAILY, (Reported) Entered as Reported by: LISA GEE on 11/22/18 1321 Magnesium Oxide (Magnesium Oxide) 250 Mg Tablet, 250 MG PO DAILY, (Reported) Entered as Reported by: CATHERINE WALKER on 05/18/20 1110 Multivitamin/Iron/Folic Acid (Multivitamin with Iron Tablet) 18 Mg Iron-400 Mcg Tablet, 1 EACH PO HS, (Reported) Entered as Reported by: CATHERINE WALKER on 06/29/21 1034 [place]-3/Dha/Epa/Dpa/Fish Oil ([place]-3 2100 Softgel) 1 Each Capsule, 1 EACH PO HS, (Reported) Entered as Reported by: CATHERINE WALKER on 05/18/20 1107 Omeprazole (Omeprazole) 40 Mg Capsule.dr, 40 MG PO DAILY, (Reported) Entered as Reported by: LISA GEE on 11/22/18 1321 Prednisone (Prednisone) 20 Mg Tab, MG PO DAILY, (Reported) Entered as Reported by: CATHERINE WALKER on 10/17/21 1144 Sotalol HCl (Sotalol AF) 80 Mg Tablet, 80 MG PO DAILY, (Reported) Entered as Reported by: CATHERINE WALKER on 10/17/21 1144 Tamsulosin HCl (Flomax) 0.4 Mg Cap, 0.4 MG PO DAILY, (Reported) Entered as Reported by: CATHERINE WALKER on 05/18/20 1107 Umeclidinium Brm/Vilanterol Tr (Anoro Ellipta 62.5-25 Mcg INH) 62.5 Mcg-25 Mcg/Actuation Blst.w.dev, 1 PUFF INH HS, (Reported) Entered as Reported by: CATHERINE WALKER on 10/17/21 1144 Vit C/E/Zn/Coppr/Lutein/Zeaxan (Preservision Areds 2 Softgel) 1 Each Capsule, 1 EACH PO BID, (Reported) Entered as Reported by: CATHERINE WALKER on 03/14/21 1117 Vitamin B Complex (Vitamin B Complex) 1 Each Tablet, 1 EACH PO DAILY, (Reported) Entered as Reported by: CATHERINE WALKER on 05/19/21 1051 Zinc Amino Acid Chelate (Zinc) 50 Mg Tablet, 50 MG PO HS, (Reported) Entered as Reported by: LISA GEE on 11/22/18 1321 [Jessy's Leg Cramps] , 1 TAB SL HS PRN for CRAMPS, (Reported) Entered as Reported by: LISA GEE on 11/22/18 1321 Review of Systems Review of Systems Constitutional: see HPI EENTM: No Symptoms Reported Respiratory: No Symptoms Reported Cardiovascular: See HPI, Irregular Heart Rate, Palpitations Gastrointestinal: No Symptoms Reported Genitourinary: No Symptoms Reported Musculoskeletal: no symptoms reported Skin: no symptoms reported Psychiatric/Neurological: No Symptoms Reported Endocrine: No Symptoms Reported Hematologic/Lymphatic: No Symptoms Reported Past Dqqinkl-Zbfzph-Emezxs Hx Immunizations Up To Date Tetanus Booster (TDap): Unknown First/Initial COVID19 Vaccinat: UNKNOWN DATE Second COVID19 Vaccination Adalid: UNKNOWN DATE Third COVID19 Vaccination Date: UNKNOWN DATE Seasonal Allergies Seasonal Allergies: Yes Past Medical History Surgery/Hospitalization HX: RIGHT HIP SURGERY, CARDIOVERSIONS A FIB Surgeries: Yes Cardiac, Orthopedic, Prostatectomy Respiratory: Yes Sleep Apnea, COPD Currently Using CPAP: Yes Currently Using BIPAP: No Cardiac: Yes (RBBB; LAFB; CARDIOVERSIONS; CHF) Atrial Fibrillation, Chronic Edema/Swelling, Heart Murmur, High Cholesterol, Hypertension, Valvular Heart Disease Neurological: No Genitourinary: Yes (STAGE 3 RENAL FAILURE, NO DIALYSIS) Prostate Problems, Renal Failure Gastrointestinal: Yes Gastroesophageal Reflux Musculoskeletal: Yes (RIGHT HIP SURGERY; LEFT SHOULDER SURGERY) Arthritis, Gout Endocrine: No HEENT: Yes Cataract Loss of Vision: Denies Hearing Impairment: Denies, Bilateral Hearing Aide Cancer: Yes Prostate, Lymphoma Did You Recieve Any Treatments: Yes What Type of Treatment Did You: Radiation, Surgical Intervention Psychosocial: No Integumentary: Yes (DERMATITIS ON FACE) Blood Disorders: Yes Adverse Reaction/Blood Tranf: Yes (THINKS HE HAS HAD A RXN, BUT UNSURE WHAT) Family Medical History Cardiovascular disease 19 MOTHER Diabetes mellitus 19 MOTHER FH: prostate cancer G8 BROTHER Myocardial infarction 19 FATHER No Pertinent Family Hx PAST SURGICAL /PROCEDURAL HISTORY: -MULTIPLE CARDIOVERSIONS FOR ATRIAL FIBRILLATION -LEFT SHOULDER SURGERY -RIGHT HIP SURGERY -PROSTATECTOMY -CARDIAC CATH 03/14/[address] SOLORZANO: COMPARISON: Prior study from 07/03/2021. FINDINGS: There are interstitial changes present within the lungs as well as flattening of the diaphragms suggesting air trapping. There is no alveolar consolidation or pneumonia. There is no large effusion. There is no pneumothorax. Heart size is stable. Pulmonary vascularity appears improved from previous exam. IMPRESSION: 1. Chronic interstitial changes and diaphragmatic flattening compatible with air trapping. 2. Stable size of the cardiac silhouette with improvement in prior interstitial prominence on comparison exam. There is no current finding to suggest edema or failure. Physical Exam Vital Signs Vital Signs - First Documented 10/31/21 15:56 Temp 36.0 Pulse 117 Resp 21 B/P (MAP) 121/105 (110) Pulse Ox 96 Capillary Refill : Height, Weight, BMI Height: 5'6.00" Weight: 173lbs. 6.4oz. 78.176363ck; 26.84 BMI Method: General Appearance: No Apparent Distress, WD/WN, Other (No distress alert and oriented. Blood pressure 120/100. Heart rate 105-120 A. fib.) Neck: Full Range of Motion, Normal Inspection Respiratory: No Accessory Muscle Use, No Respiratory Distress Gastrointestinal: Normal Bowel Sounds, Non Tender, Soft Extremity: Normal Capillary Refill, Normal Inspection Neurologic/Psychiatric: Alert, Oriented x3 Skin: Normal Color, Warm/Dry Procedures/Interventions Patient Education: Explained Benefits, Explained Risks, Pt. Ack. Understanding Breath Sounds per Auscultation: Wheezes Heart Sounds per Auscultation: Irregular Airway Exam: Mouth opens >2 fingers Progress/Results/Core Measures Results/Orders Lab Results Laboratory Tests Test 10/31/21 15:54 Range/Units White Blood Count 11.0 4.3-11.0 10^3/uL Red Blood Count 4.40 4.30-5.52 10^6/uL Hemoglobin 14.5 13.3-17.7 g/dL Hematocrit 42 40-54 % Mean Corpuscular Volume 94 80-99 fL Mean Corpuscular Hemoglobin 33 25-34 pg Mean Corpuscular Hemoglobin Concent 35 32-36 g/dL Red Cell Distribution Width 14.8 H 10.0-14.5 % Platelet Count 125 L 130-400 10^3/uL Mean Platelet Volume 11.0 9.0-12.2 fL Immature Granulocyte % (Auto) 1 % Neutrophils (%) (Auto) 80 H 42-75 % Lymphocytes (%) (Auto) 16 12-44 % Monocytes (%) (Auto) 3 0-12 % Eosinophils (%) (Auto) 0 0-10 % Basophils (%) (Auto) 0 0-10 % Neutrophils # (Auto) 8.7 H 1.8-7.8 10^3/uL Lymphocytes # (Auto) 1.7 1.0-4.0 10^3/uL Monocytes # (Auto) 0.3 0.0-1.0 10^3/uL Eosinophils # (Auto) 0.0 0.0-0.3 10^3/uL Basophils # (Auto) 0.0 0.0-0.1 10^3/uL Immature Granulocyte # (Auto) 0.1 0.0-0.1 10^3/uL Percent Immature Platelet Fraction 4.7 0.0-7.6 % Prothrombin Time 14.1 12.2-14.7 SEC INR Comment 1.1 0.8-1.4 Activated Partial Thromboplast Time 25 24-35 SEC Sodium Level 130 L 135-145 MMOL/L Potassium Level 4.3 3.6-5.0 MMOL/L Chloride Level 97 L 98-107 MMOL/L Carbon Dioxide Level 19 L 21-32 MMOL/L Anion Gap 14 5-14 MMOL/L Blood Urea Nitrogen 43 H 7-18 MG/DL Creatinine 1.85 H 0.60-1.30 MG/DL Estimat Glomerular Filtration Rate 35 BUN/Creatinine Ratio 23 Glucose Level 346 H 70-105 MG/DL Calcium Level 8.8 8.5-10.1 MG/DL Corrected Calcium 9.2 8.5-10.1 MG/DL Magnesium Level 1.8 1.6-2.4 MG/DL Total Bilirubin 0.7 0.1-1.0 MG/DL Aspartate Amino Transf (AST/SGOT) 48 H 5-34 U/L Alanine Aminotransferase (ALT/SGPT) 72 H 0-55 U/L Alkaline Phosphatase 63 40-136 U/L Myoglobin 118.5 H 10.0-92.0 NG/ML Troponin I 0.348 *H <0.028 NG/ML B-Type Natriuretic Peptide 1801.0 H <100.0 PG/ML Total Protein 6.1 L 6.4-8.2 GM/DL Albumin 3.5 3.2-4.5 GM/DL My Orders Orders - USMAN TERAN MEDICAL STAFF SERVICES COORDINATOR Cbc With Automated Diff (10/31/21 15:48) Magnesium (10/31/21 15:48) Chest 1 View, Ap/Pa Only (10/31/21 15:48) Ekg Tracing (10/31/21 15:48) Comprehensive Metabolic Panel (10/31/21 15:48) Myoglobin Serum (10/31/21 15:48) Protime With Inr (10/31/21 15:48) Partial Thromboplastin Time (10/31/21 15:48) O2 (10/31/21 15:48) Monitor-Rhythm Ecg Trace Only (10/31/21 15:48) Lipid Panel (11/01/21 06:00) Ed Iv/Invasive Line Start (10/31/21 15:48) Bnp [place] (10/31/21 15:48) Troponin I [place] (10/31/21 15:48) Furosemide Injection (Lasix Injection) (10/31/21 16:45) Metoprolol Tartrate Injection (Lopressor (10/31/21 16:45) Medications Given in ED Current Medications Medications Dose Ordered Sig/Yonny Route Start Time Stop Time Status Last Admin Dose Admin Furosemide 40 mg ONCE ONCE IVP 10/31/21 16:45 10/31/21 16:46 DC 10/31/21 17:01 40 MG Metoprolol Tartrate 3 mg ONCE ONCE IV 10/31/21 16:45 10/31/21 16:46 DC 10/31/21 17:01 3 MG Vital Signs/I&O 10/31/21 15:56 Temp 36.0 Pulse 117 Resp 21 B/P (MAP) 121/105 (110) Pulse Ox 96 Departure Communication (Admissions) Family Conversation 1630-I will give him an extra dose of Lasix 40 mg IV here, blood pressure and potassium are fine. Heart rate is pretty stable between 90 A. fib and 120 A. fib. He complains of chronic shortness of breath that does not seem to be any worse than normal. I will give him 3 mg of metoprolol here spoke with Dr. Solorzano, the troponin is a little elevated but it is trending down, he just had a heart cath on this patient for chronically elevated troponin. Patient denies any chest pain. We will increase his Lasix to twice daily for 1 week and he will follow up with the patient in 2 weeks. He just darted the patient on diltiazem 120 CD today. NAME: VICENTA LOCO [facility] REC#: [id number] PT STATUS: REG ER : 1935 PHYSICIAN: USMAN TERAN APRN ADMIT DATE: 10/31/21/ER Signed Date of Exam:10/31/21 CHEST 1 VIEW, AP/PA ONLY EXAMINATION: Chest, one view. HISTORY: Chest pain. Atrial fibrillation. COMPARISON: 10/15/2021. FINDINGS: There is cardiomegaly with central pulmonary vascular congestion. Prominent interstitial markings are seen in the perihilar regions. No focal consolidation. No large pleural effusion or pneumothorax. IMPRESSION: 1. Cardiomegaly with central pulmonary vascular congestion and interstitial edema. Dictated by: Dictated on workstation # [id number] Dict: 10/31/21 1606 Trans: 10/31/21 1610 [id number] Interpreted by: PRICILA JOHNSON DO Electronically signed by: PRICILA JOHNSON DO 10/31/21 1610 Impression Primary Impression: Persistent atrial fibrillation Disposition: 01 HOME, SELF-CARE Condition: Stable Departure-Patient Inst. Decision time for Depature: 16:39 Referrals: NAPOLEON OJEDA MD (PCP/Family) Primary Care Physician Patient Instructions: Atrial Fibrillation (DC) Add. Discharge Instructions: Increased your Lasix dose to 1 tablet twice a day for 1 week then go back to the normal once a day dosing. Continue the new medicine started today by Dr. Solorzano. Follow-up with him in 2 weeks as scheduled. All discharge instructions reviewed with patient and/or family. Voiced understanding. USMAN TERAN APRN Oct 31, 2021 15:57
[2021-10-31 16:04] LABS: MEAN CORPUSCULAR VOLUME 94 fL (80-99)
[2021-10-31 16:06] LABS: BASOPHILS % (AUTO) 0 % (0-10); EOSINOPHILS % (AUTO) 0 % (0-10); HEMATOCRIT 42 % (40-54); HEMOGLOBIN 14.5 g/dL (13.3-17.7); LYMPHOCYTES # (AUTO) 1.7 10^3/uL (1.0-4.0); LYMPHOCYTES % (AUTO) 16 % (12-44); MEAN CORPUSCULAR HEMOGLOBIN 33 pg (25-34); MEAN CORPUSCULAR HGB CONC 35 g/dL (32-36); MONOCYTES # (AUTO) 0.3 10^3/uL (0.0-1.0); MONOCYTES % (AUTO) 3 % (0-12); NEUTROPHILS # (AUTO) 8.7 10^3/uL (1.8-7.8); NEUTROPHILS % (AUTO) 80 % (42-75); PLATELET COUNT 125 10^3/uL (130-400)
[2021-10-31 16:08] LABS: ALBUMIN 3.5 GM/DL (3.2-4.5)
[2021-10-31 16:09] LABS: POTASSIUM 4.3 MMOL/L (3.6-5.0)
--- NOTE | 2021-10-31 16:09 | Diagnostic Imaging Report ---
EXAMINATION: Chest, one view. HISTORY: Chest pain. Atrial fibrillation. COMPARISON: 10/15/2021. FINDINGS: There is cardiomegaly with central pulmonary vascular congestion. Prominent interstitial markings are seen in the perihilar regions. No focal consolidation. No large pleural effusion or pneumothorax. IMPRESSION: 1. Cardiomegaly with central pulmonary vascular congestion and interstitial edema. Dictated by: Dictated on workstation # [id number]
[2021-10-31 16:10] LABS: CALCIUM 8.8 MG/DL (8.5-10.1)
[2021-10-31 16:11] LABS: TOTAL PROTEIN 6.1 GM/DL (6.4-8.2)
[2021-10-31 16:13] LABS: BILIRUBIN,TOTAL 0.7 MG/DL (0.1-1.0)
[2021-10-31 16:15] LABS: CREATININE SERUM 1.85 MG/DL (0.60-1.30)
[2021-10-31 16:17] LABS: MAGNESIUM 1.8 MG/DL (1.6-2.4)
[2021-10-31 16:20] LABS: INR 1.1 (0.8-1.4); PROTHROMBIN TIME PATIENT 14.1 SEC (12.2-14.7)
[2021-10-31] MEDS ORDERED: FUROSEMIDE 40 MG/4 ML INJ (LASIX) IVP ONE (16:45)
[2021-10-31] MEDS ORDERED: meTOprolol 5 MG/5 ML (LOPRESSOR) VIAL IV ONE (16:45)
[2021-10-31 17:58] VITALS: BP 101/86
== END 2021-10-31 17:57 | disposition home or self-care (01) ==
LOC: EDUNIT# 15:42 → ER 15:43
DX: I48.19 Other persistent atrial fibrillation (principal); R77.8 Other specified abnormalities of plasma proteins; G47.30 Sleep apnea, unspecified; Z95.9 Presence of cardiac and vascular implant and graft, unspecified; Z99.89 Dependence on other enabling machines and devices
CPT/HCPCS: 36415; 71045; 80053; 83735; 83874; 83880; 84484; 85025; 85610; 85730; 93005; 93041

== ENCOUNTER → 2021-11-15 | Outpatient (CLI) | payer MEDICARE, OTHER | LOC: CARD 07:57 | PROVIDERS: ATTEND Internal Medicine Cardiovascular Disease | DX: I08.3 Combined rheumatic disorders of mitral, aortic and tricuspid valves (principal) | CPT/HCPCS: 93306 ==

== ENCOUNTER 2021-11-19 13:24 | Emergency (ER) | payer MEDICARE, OTHER ==
[~2021-11-19] VITALS: Ht 167.7 cm; Wt 74.4 kg
[2021-11-19] MEDS ORDERED: TETANUS,DIPTH,PERTUSS P/F (BOOSTRIX) 0.5 ML VIAL IM ONE (14:45)
--- NOTE | 2021-11-19 15:25 | ED Integumentary General ---
General Chief Complaint: Skin/Wound Problems Stated Complaint: LEFT ARM SKIN TEAR Nursing Triage Note: PT AMBULATE TO ROOM FT1 WITH C/O SKIN TEAR TO LEFT ELBOW YESTERDAY AT 1600. PT'S PLACED DRESSING AND COVERED WOULD WITH VASELINE. 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 Scraped it on some barbed wire fence. cleaned it and dressed it nicely, however, she got to thinking about the mechanism and decided he needed to come into the ED to get a tetanus shot. He is on blood thinners. Wound has not been bleeding excessively. No other complaints of illness or injury, Timing/Duration: yesterday Severity: mild Location: extremities (left elbow) Associated Symptoms: denies symptoms Allergies and Home Medications Allergies Coded Allergies: vancomycin (Verified Allergy, Severe, 05/28/19) Pt states his face got really red and he went into ER for reaction. gemfibrozil (Verified Allergy, Unknown, 05/27/19) valdecoxib (Verified Allergy, Unknown, 05/27/19) Patient Home Medication List Home Medication List Reviewed: Yes Allopurinol (Allopurinol) 300 Mg Tablet, 300 MG PO DAILY, (Reported) Entered as Reported by: LISA GEE on 11/22/18 1321 Apixaban (Eliquis) 2.5 Mg Tablet, 2.5 MG PO BID, (Reported) Entered as Reported by: LISA GEE on 11/22/18 1321 Atorvastatin Calcium (Atorvastatin Calcium) 40 Mg Tablet, 40 MG PO DAILY, (Reported) Entered as Reported by: LISA GEE on 11/22/18 1321 Carboxymethylcellulose Sodium (Refresh Tears) 15 Ml Drops, 1 DROP OP BID, (Reported) Entered as Reported by: CATHERINE WALKER on 03/14/21 1117 Cholecalciferol (Vitamin D3) (Vitamin D3) 25 Mcg (1000 Unit) Capsule, 25 MCG PO DAILY, (Reported) Entered as Reported by: CATHERINE WALKER on 05/18/20 1107 Fluticasone Propion/Salmeterol (Fluticasone-Salmeterol 100-50) 1 Each Blst.w.dev, 1 PUFF INH BID, (Reported) Entered as Reported by: CATHERINE WALKER on 05/18/20 1107 Fluticasone Propionate (Flonase Allergy Relief) 50 Mcg/Actuation [place].susp, 1 SPRAY NS DAILY PRN for CONGESTION, (Reported) Entered as Reported by: LISA GEE on 11/22/18 1321 Furosemide (Furosemide) 20 Mg Tablet, 40 MG PO DAILY, (Reported) Entered as Reported by: LISA GEE on 11/22/18 1321 Magnesium Oxide (Magnesium Oxide) 250 Mg Tablet, 250 MG PO DAILY, (Reported) Entered as Reported by: CATHERINE WALKER on 05/18/20 1110 Multivitamin/Iron/Folic Acid (Multivitamin with Iron Tablet) 18 Mg Iron-400 Mcg Tablet, 1 EACH PO HS, (Reported) Entered as Reported by: CATHERINE WALKER on 06/29/21 1034 [place]-3/Dha/Epa/Dpa/Fish Oil ([place]-3 2100 Softgel) 1 Each Capsule, 1 EACH PO HS, (Reported) Entered as Reported by: CATHERINE WALKER on 05/18/20 1107 Omeprazole (Omeprazole) 40 Mg Capsule.dr, 40 MG PO DAILY, (Reported) Entered as Reported by: LISA GEE on 11/22/18 1321 Prednisone (Prednisone) 20 Mg Tab, MG PO DAILY, (Reported) Entered as Reported by: CATHERINE WALKER on 10/17/21 1144 Sotalol HCl (Sotalol AF) 80 Mg Tablet, 80 MG PO DAILY, (Reported) Entered as Reported by: CATHERINE WALKER on 10/17/21 1144 Tamsulosin HCl (Flomax) 0.4 Mg Cap, 0.4 MG PO DAILY, (Reported) Entered as Reported by: CATHERINE WALKER on 05/18/20 1107 Umeclidinium Brm/Vilanterol Tr (Anoro Ellipta 62.5-25 Mcg INH) 62.5 Mcg-25 Mcg/Actuation Blst.w.dev, 1 PUFF INH HS, (Reported) Entered as Reported by: CATHERINE WALKER on 10/17/21 1144 Vit C/E/Zn/Coppr/Lutein/Zeaxan (Preservision Areds 2 Softgel) 1 Each Capsule, 1 EACH PO BID, (Reported) Entered as Reported by: CATHERINE WALKER on 03/14/21 1117 Vitamin B Complex (Vitamin B Complex) 1 Each Tablet, 1 EACH PO DAILY, (Reported) Entered as Reported by: CATHERINE WALKER on 05/19/21 1051 Zinc Amino Acid Chelate (Zinc) 50 Mg Tablet, 50 MG PO HS, (Reported) Entered as Reported by: LISA GEE on 11/22/18 1321 [Jessy's Leg Cramps] , 1 TAB SL HS PRN for CRAMPS, (Reported) Entered as Reported by: LISA GEE on 11/22/18 1321 Review of Systems Review of Systems Constitutional: see HPI EENTM: no symptoms reported Respiratory: no symptoms reported Cardiovascular: no symptoms reported Gastrointestinal: no symptoms reported Genitourinary: no symptoms reported Skin: other (skin tear) Past Ytgvhmn-Nvmdho-Ylintk Hx Patient Social History Tobacco Use?: No Smoking Status: Never a Smoker Smokeless Tobacco Frequency: Never a User Use of E-Cig and/or Vaping dev: No Use of E-Cig and/or Vaping [place]: Never a User Substance use?: No Alcohol Use?: No Pt feels they are or have been: No Immunizations Up To Date Tetanus Booster (TDap): Unknown First/Initial COVID19 Vaccinat: UNKNOWN DATE Second COVID19 Vaccination Adalid: UNKNOWN DATE Third COVID19 Vaccination Date: UNKNOWN DATE COVID19 Vaccine Claim Agent: [employer] Seasonal Allergies Seasonal Allergies: Yes Past Medical History Surgery/Hospitalization HX: RIGHT HIP SURGERY, CARDIOVERSIONS A FIB Surgeries: Yes Cardiac, Orthopedic, Prostatectomy Respiratory: Yes Sleep Apnea, COPD Currently Using CPAP: Yes Currently Using BIPAP: No Cardiac: Yes (RBBB; LAFB; CARDIOVERSIONS; CHF) Atrial Fibrillation, Chronic Edema/Swelling, Heart Murmur, High Cholesterol, Hypertension, Valvular Heart Disease Neurological: No Genitourinary: Yes (STAGE 3 RENAL FAILURE, NO DIALYSIS) Prostate Problems, Renal Failure Gastrointestinal: Yes Gastroesophageal Reflux Musculoskeletal: Yes (RIGHT HIP SURGERY; LEFT SHOULDER SURGERY) Arthritis, Gout Endocrine: No HEENT: Yes Cataract Loss of Vision: Denies Hearing Impairment: Denies, Bilateral Hearing Aide Cancer: Yes Prostate, Lymphoma Did You Recieve Any Treatments: Yes What Type of Treatment Did You: Radiation, Surgical Intervention Psychosocial: No Integumentary: Yes (DERMATITIS ON FACE) Blood Disorders: Yes Adverse Reaction/Blood Tranf: Yes (THINKS HE HAS HAD A RXN, BUT UNSURE WHAT) Family Medical History Cardiovascular disease 19 MOTHER Diabetes mellitus 19 MOTHER FH: prostate cancer G8 BROTHER Myocardial infarction 19 FATHER No Pertinent Family Hx PAST SURGICAL /PROCEDURAL HISTORY: -MULTIPLE CARDIOVERSIONS FOR ATRIAL FIBRILLATION -LEFT SHOULDER SURGERY -RIGHT HIP SURGERY -PROSTATECTOMY -CARDIAC CATH 03/14/[address] LOPEZ: COMPARISON: Prior study from 07/03/2021. FINDINGS: There are interstitial changes present within the lungs as well as flattening of the diaphragms suggesting air trapping. There is no alveolar consolidation or pneumonia. There is no large effusion. There is no pneumothorax. Heart size is stable. Pulmonary vascularity appears improved from previous exam. IMPRESSION: 1. Chronic interstitial changes and diaphragmatic flattening compatible with air trapping. 2. Stable size of the cardiac silhouette with improvement in prior interstitial prominence on comparison exam. There is no current finding to suggest edema or failure. Physical Exam Vital Signs Vital Signs - First Documented 11/19/21 11/19/21 14:30 16:03 Temp 37.0 Pulse 69 Resp 16 B/P (MAP) 137/82 (100) Pulse Ox 97 O2 Delivery Room Air Capillary Refill : Less Than 3 Seconds General Appearance: WD/WN, no apparent distress Respiratory: no respiratory distress, no accessory muscle use Extremities: normal range of motion, non-tender Neurologic/Psychiatric: alert, normal mood/affect, oriented x 3 Skin: normal color, warm/dry, other (2 separate skin tears, left posterior elbow - each approximately 3-4 cm long. No active bleeding. had been dressed well) Procedures/Interventions Patient Education: Explained Benefits, Explained Risks, Pt. Ack. Understanding Breath Sounds per Auscultation: Wheezes Heart Sounds per Auscultation: Irregular Airway Exam: Mouth opens >2 fingers Progress/Results/Core Measures Results/Orders My Orders Orders - JAMI PELLETIER MD Dipht,Pertbe(Acell),Tet Adult (Boostrix (11/19/21 14:45) Medications Given in ED Vital Signs/I&O 11/19/21 11/19/21 14:30 16:03 Temp 37.0 36.8 Pulse 69 68 Resp 16 16 B/P (MAP) 137/82 (100) 133/64 Pulse Ox 97 O2 Delivery Room Air Room Air Blood Pressure Mean: 100 Progress Progress Note : Progress Note tetanus updated and wound dressed. Patient instructed to followup with PCP. Return precautions provided. Departure Impression Primary Impression: Skin tear of elbow without complication Qualified Codes: S51.012A - Laceration without foreign body of left elbow, initial encounter Disposition: HOME, SELF-CARE Condition: Stable Departure-Patient Inst. Decision time for Depature: 15:24 Referrals: NAPOLEON OJEDA MD (PCP/Family) Primary Care Physician Patient Instructions: Skin Abrasions (DC) Add. Discharge Instructions: Keep clean, dry and covered for the next 3-4 days. You can apply a little triple antibiotic ointment over the wounds for 2 days after washing gently. Follow up next week with Dr Ojeda to ensure they are healing well. Your tetanus shot has been updated today. Return to the ER for re-evaluation if you have swelling, redness, drainage or fever or any other emergent, concerning symptoms. JAMI PELLETIER MD Nov 19, 2021 15:25
[2021-11-19 16:03] VITALS: BP 133/64
== END 2021-11-19 16:03 | disposition home or self-care (01) ==
LOC: EDUNIT# 13:24 → ER 13:26
DX: S51.012A Laceration without foreign body of left elbow, initial encounter (principal); Z23 Encounter for immunization; W26.8XXA Contact with other sharp object(s), not elsewhere classified, initial encounter; Y92.79 Other farm location as the place of occurrence of the external cause
CPT/HCPCS: 90715; 99284